=== PATIENT | male | born 1940 | race Caucasian/White ===

== ENCOUNTER 2016-12-01 12:18 | Day surgery (SDC) | payer MEDICARE, BC ==
[~2016-12-01 12:18] MED LIST: FAMOTIDINE 20 MG/2 ML VIAL IV ONE; ceFAZolin 1,000 MG in DEXTROSE/WATER 1 50ML.BAG IV ONE
[2016-12-01 12:50] VITALS: TEMP 97
[2016-12-01] MEDS ORDERED: ONDANSETRON 4 MG/2 ML VIAL IVP ONE (13:06)
[2016-12-01] MEDS ORDERED: DEXAMETHASONE SOD PHOSPHATE 10 MG/ML 1 ML VIAL IV ONE (13:06)
[2016-12-01] MEDS ORDERED: LACTATED RINGERS 1,000 ML IV SCH (13:06)
[2016-12-01] MEDS ORDERED: HYDROmorphone 1 MG/ML 1 ML SYRINGE IVP PRN (13:06)
[2016-12-01] MEDS ORDERED: LIDOCAINE 1% 20 ML VIAL (10MG/ML) FOR IV START INTRADERMA ONE (13:07)
[2016-12-01 13:12] LABS: Glucose,Whole Blood 98 mg/dL (75-99)
[2016-12-01] MEDS ORDERED: PROPOFOL 10 MG/ML 20 ML VIAL IV ONE (14:01)
[2016-12-01] MEDS ORDERED: MIDAZOLAM 2 MG/2 ML VIAL ONE (14:01)
[2016-12-01] MEDS ORDERED: fentaNYL (PF) 50 MCG/ML 2 ML AMP ONE (14:01)
[2016-12-01] MEDS ORDERED: LIDOCAINE 1% INJ 10MG/ML (20 ML MDV) ONE (14:01)
[2016-12-01] MEDS ORDERED: KETAMINE 10 MG/ML 20 ML VIAL ONE (14:01)
[2016-12-01] MEDS ORDERED: LIDOCAINE 1%-EPI 1:100,000 20 ML VIAL SQ ONE (14:18)
--- NOTE | 2016-12-01 14:39 | P.OP ---
Date of Procedure: 12/01/16 Preoperative Diagnosis: Basal cell carcinoma right ear Postoperative Diagnosis: Same Procedure(s) Performed: Excision basal cell carcinoma right ear Anesthesia: MAC Surgeon: Harjit Traore Estimated Blood Loss (ml): 1 Pathology: other (Right ear lesion) Condition: stable Disposition: PACU Indications for Procedure: This is a 76-year-old white male who had a nonhealing lesion of the right ear which was biopsied and showed a basal cell carcinoma. This is in the [place] Operative Findings: Right ear external auditory meatus lesion Description of Procedure: The patient was brought in the operative suite and placed in a supine position. The patient underwent induction of IV sedation by the vending manager after appropriate monitors were placed. The patient was prepped and draped in usual aseptic fashion. 1% lidocaine with 1 100,000 epinephrine was infused subcutaneously and field block fashion in the inferior aspect of the external auditory meatus where there was a small excoriated lesion. This lesion was excised grossly entirely from the surrounding tissue. Excised down to the perichondrium. Hemostasis was gained with electrocautery. This area was too small and too far medial to support a skin graft and therefore this was dressed with bacitracin ointment and sterile dressing placed. The patient was allowed to emerge from anesthesia having tolerated procedure well was transferred to the postop recovery area in satisfactory condition.
[2016-12-01 15:16] VITALS: BP 151/91; PULSE 86; RESP 18
--- NOTE | 2016-12-08 10:48 | CDI ---
Mr. Bajwa was seen on 12/01 for excision of basal cell carcinoma of his ear. The diameter of the lesion excised (including margins) is need to be documented for proper reporting purposes. Please clarify if the size excised was: 0.5 cm or less 0.6 -1.0 cm 1.1 - 2.0 cm 2.1 - 3.0 cm 3.1 - 4.0 cm over 4.0 cm Please document your findings in an addendum to the Operatieve Note. Thank you for your time. RAMONA
--- NOTE | 2016-12-15 11:41 | OP ---
ADDENDUM DATE OF SERVICE: 12/01/2016 Size of excision basal cell carcinoma right ear between 0.6 and 1.0 cm.
== END 2016-12-01 15:46 | disposition home or self-care (01) ==
LOC: OR 12:18
PROVIDERS: ATTEND Otolaryngology
DX: C44.212 Basal cell carcinoma of skin of right ear and external auricular canal (principal); I10 Essential (primary) hypertension; E78.5 Hyperlipidemia, unspecified; F41.9 Anxiety disorder, unspecified; K21.9 Gastro-esophageal reflux disease without esophagitis; Z79.899 Other long term (current) drug therapy; Z85.038 Personal history of other malignant neoplasm of large intestine
CPT/HCPCS: 11641; 88305; J2250; J1100; J2405; J2001; J3010; J0690; J2704; 99152; 99153

== ENCOUNTER → 2017-03-01 | Outpatient (CLI) | payer MEDICARE, BC | END | disposition home or self-care (01) | LOC: LABWHC1 10:04 | PROVIDERS: ATTEND Urology | DX: C61 Malignant neoplasm of prostate (principal) | CPT/HCPCS: 36415; 84402; 84403 ==

== ENCOUNTER → 2017-03-18 | Outpatient (CLI) | payer MEDICARE, BC ==
[2017-03-18 08:03] LABS: Blood Urea Nitrogen 4 mg/dL (9-20); Non-African American GFR(MDRD) >60 (>60 ml/min/1.73 sqM)
--- NOTE | 2017-03-18 09:37 | CT ---
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 CT DLP: 513.3 mGycm, Automated Exposure Control for Dose Reduction was Utilized. CONTRAST: CT scan of the abdomen and pelvis is performed with oral and with IV Contrast, patient injected with 100 mL of Omnipaque 300. FINDINGS: LUNG BASES: No significant abnormality is appreciated. LIVER/GB: Cholecystectomy clips are again seen. PANCREAS: No significant abnormality is seen. SPLEEN: No significant abnormality is seen. ADRENALS: No significant abnormality is seen. KIDNEYS: No significant abnormality is seen. BOWEL: A small hiatal hernia is redemonstrated. Oral contrast reaches level of the rectum. There is n o suspicious small or large bowel dilatation. Small bowel sutures are less well seen on current study . There is mild wall thickening of portions of the left and sigmoid colon, cannot exclude colitis at this level. Clinical correlation advised. PROSTATE/SEMINAL VESICLES: There is a penile prosthesis pump anterior to the bladder right of midline redemonstrated. Numerous brachytherapy seeds in prostate gland are redemonstrated. LYMPH NODES: No greater than 1cm abdominal or pelvic lymph nodes are appreciated. OSSEOUS STRUCTURES: There is multilevel facet arthropathy in the spine. There is multilevel spurring in the spine. OTHER: Vertical scar in the midline of the abdomen is present. There is mild to moderate calcified pl aque of aorta extending into branch vessels. There is spurring from the lateral aspect of the acetabu lum bilaterally. IMPRESSION: 1. No suspicious new mass or adenopathy is seen to suggest neoplastic recurrence. 2. Possible mild multifocal distal colitis, clinical correlation advised.
== END | disposition home or self-care (01) ==
LOC: RADCTMAIN 06:31
PROVIDERS: ATTEND Internal Medicine Hematology & Oncology
DX: C7A.012 Malignant carcinoid tumor of the ileum (principal)
CPT/HCPCS: 82565; 84520; 74177; 36415; Q9967

== ENCOUNTER → 2017-04-19 | Outpatient (CLI) | payer MEDICARE, BC ==
[2017-04-19 10:44] LABS: ALT 26 U/L (21-72); AST 25 U/L (17-59); Cholesterol 123 mg/dL (<200); HDL Cholesterol 51 mg/dL (40-60); Triglycerides 205 mg/dL (<150)
== END | disposition home or self-care (01) ==
LOC: LABWHC1 09:50
PROVIDERS: ATTEND Internal Medicine Cardiovascular Disease
DX: E78.2 Mixed hyperlipidemia (principal)
CPT/HCPCS: 36415; 80061; 84450; 84460

== ENCOUNTER → 2017-05-23 | Outpatient (CLI) | payer MEDICARE, BC ==
[2017-05-23 13:27] LABS: CH 29.6; CHCM 32.5; HCT 35.6 % (39.0-53.0); HDW 3.19; HGB 11.3 gm/dL (13.0-17.5); Hypochromasia Slight; MCH 29.1 pg (25.0-35.0); MCHC 31.8 g/dL (31.0-37.0); MCV 91.4 fL (80.0-100.0); Mean Platelet Volume 7.1; RDW 14.5 % (11.5-15.5); WBC 6.5 k/uL (3.8-10.6)
[2017-05-23 13:42] LABS: ALT 28 U/L (21-72); AST 24 U/L (17-59); Alkaline Phosphatase 81 U/L (38-126); Anion Gap 10 mmol/L; Blood Urea Nitrogen 8 mg/dL (9-20); Calcium 8.9 mg/dL (8.4-10.2); Carbon Dioxide 23 mmol/L (22-30); Chloride 108 mmol/L (98-107); Glucose 94 mg/dL (74-99); Non-African American GFR(MDRD) >60 (>60 ml/min/1.73 sqM); Potassium 3.8 mmol/L (3.5-5.1); Sodium 141 mmol/L (137-145); Total Bilirubin 0.5 mg/dL (0.2-1.3); Total Protein 6.4 g/dL (6.3-8.2)
[2017-05-23 14:31] LABS: Vitamin B12 441 pg/mL
== END | disposition home or self-care (01) ==
LOC: LABWHC1 12:47
PROVIDERS: ATTEND Physician Assistant
DX: R53.83 Other fatigue (principal)
CPT/HCPCS: 36415; 80053; 82607; 84443; 85027

== ENCOUNTER → 2017-12-07 | Outpatient (CLI) | payer MEDICARE, BC ==
--- NOTE | 2017-12-07 11:01 | XR ---
EXAMINATION TYPE: XR chest 2V DATE OF EXAM: 12/07/2017 COMPARISON: 08/01/2016 HISTORY: Carcinoid of the terminal ileum. Pulmonary evaluation. TECHNIQUE: Frontal and lateral views of the chest are obtained. FINDINGS: There is no focal air space opacity, pleural effusion, or pneumothorax seen. Post CABG thine nges are seen of the chest. The cardiac silhouette size is within normal limits. The osseous struc tures are intact. Cholecystectomy clips reside within the right upper quadrant. Bridging anterior ost eophytes and moderate multilevel degenerative changes of the thoracic spine are noted. IMPRESSION: No acute cardiopulmonary process.
== END | disposition home or self-care (01) ==
LOC: RADXRMAIN 10:11
PROVIDERS: ATTEND Nurse Practitioner Adult Health
DX: C7A.012 Malignant carcinoid tumor of the ileum (principal); R10.9 Unspecified abdominal pain; G43.909 Migraine, unspecified, not intractable, without status migrainosus; Z87.39 Personal history of other diseases of the musculoskeletal system and connective tissue
CPT/HCPCS: 71046

== ENCOUNTER → 2018-04-27 | Outpatient (CLI) | payer MEDICARE, BC ==
[2018-04-27 14:23] VITALS: BMI 22.6
[2018-04-27 15:07] LABS: Blood Urea Nitrogen 10 mg/dL (9-20)
--- NOTE | 2018-04-28 10:07 | CT ---
EXAMINATION TYPE: CT abdomen pelvis w con DATE OF EXAM: 04/27/2018 COMPARISON: CT abdomen and pelvis 11/28/2016 and older studies HISTORY: Diarrhea and syncope. Malignant carcinoid tumor per order. CT DLP: 1043 mGycm, Automated Exposure Control for Dose Reduction was Utilized. CONTRAST: CT scan of the abdomen and pelvis is performed with oral and with IV Contrast, patient injected with 100 mL of Isovue 300. FINDINGS: LUNG BASES: Linear scarring central left lung base is redemonstrated. There is partial visualization of sternal wires. LIVER/GB: Gallbladder is surgically absent. PANCREAS: No significant abnormality is seen. SPLEEN: No significant abnormality is seen. ADRENALS: No significant abnormality is seen. KIDNEYS: No significant abnormality is seen. BOWEL: Small to moderate size hiatal hernia is redemonstrated. Surgical clip at diaphragmatic hiatus is again seen. Oral contrast reaches level of hepatic flexure. There is no suspicious small or large bowel dilatation. There is mild wall thickening in the colon near splenic flexure in the distal left colon and in the sigmoid colon of the pelvis. Small bowel sutures with focal dilatation right mid abd omen axial image 45 are not significant change from October 19, 2016 CT. PROSTATE/SEMINAL VESICLES: Numerous brachytherapy seeds in prostate gland are redemonstrated. LYMPH NODES: No greater than 1cm abdominal or pelvic lymph nodes are appreciated. OSSEOUS STRUCTURES: There is multilevel spurring in the spine redemonstrated. There is multilevel mil d to moderate facet arthropathy in the lower lumbar spine. Moderate joint space loss and spurring of both hips is redemonstrated. OTHER: There is stable small size fat-containing paraumbilical hernia. There is a penile pump prosthesis reservoir to the right aspect anterior to the bladder redemonstrate d. There is mild calcified plaque of distal abdominal aorta extending into branch vessels. IMPRESSION: 1. No new suspicious mass or adenopathy is seen to suggest neoplastic recurrence. No significant goldstein ge from prior.
== END | disposition home or self-care (01) ==
LOC: RADCTMAIN 14:17
PROVIDERS: ATTEND Internal Medicine Hematology & Oncology
DX: C7A.012 Malignant carcinoid tumor of the ileum (principal)
CPT/HCPCS: 82565; 84520; 74177; 36415; Q9967

== ENCOUNTER → 2018-05-03 | Outpatient (CLI) | payer MEDICARE, BC ==
[2018-05-03 12:20] LABS: ALT 26 U/L (21-72); AST 23 U/L (17-59); Albumin 4.3 g/dL (3.5-5.0); Alkaline Phosphatase 113 U/L (38-126); Bilirubin, Delta 0.4 mg/dL (0.0-0.2); Bilirubin,Unconjugated 0.1 mg/dL (0.0-1.1); Cholesterol 192 mg/dL (<200); HDL Cholesterol 64 mg/dL (40-60); LDL Cholesterol,Calculated 58 mg/dL (0-99); Total Bilirubin 0.5 mg/dL (0.2-1.3); Total Protein 7.1 g/dL (6.3-8.2); Triglycerides 348 mg/dL (<150)
[2018-05-03 12:37] LABS: HCT 43.5 % (39.0-53.0); MCH 30.3 pg (25.0-35.0); MCHC 32.1 g/dL (31.0-37.0); MCV 94.5 fL (80.0-100.0); Mean Platelet Volume 6.4; Platelet Count 195 k/uL (150-450); RBC 4.61 m/uL (4.30-5.90); RDW 12.9 % (11.5-15.5); WBC 5.3 k/uL (3.8-10.6)
[2018-05-03 12:50] LABS: Prostate Specific Antigen <0.10 ng/mL (0.00-4.00)
== END | disposition home or self-care (01) ==
LOC: LABWHC1 11:19
PROVIDERS: ATTEND Urology
DX: E78.5 Hyperlipidemia, unspecified (principal); C61 Malignant neoplasm of prostate
CPT/HCPCS: 36415; 80061; 80076; 84153; 85027

== ENCOUNTER → 2018-11-01 | Outpatient (CLI) | payer MEDICARE, BC | LOC: LABWHC1 10:13 | PROVIDERS: ATTEND Internal Medicine Cardiovascular Disease | DX: E78.2 Mixed hyperlipidemia (principal) | CPT/HCPCS: 36415; 80061; 84450; 84460 ==

== ENCOUNTER → 2019-01-22 | Outpatient (CLI) | payer MEDICARE, BC ==
[2019-01-22 20:25] LABS: Hemoglobin A1C 5.3 % (4.0-6.0)
== END | disposition home or self-care (01) ==
LOC: LABWHC1 09:26
PROVIDERS: ATTEND Physician Assistant
DX: R73.9 Hyperglycemia, unspecified (principal)
CPT/HCPCS: 36415; 83036

== ENCOUNTER 2019-04-21 17:47 | Inpatient (IN) | payer MEDICARE, BC ==
[2019-04-21 18:36] LABS: Basophils % (A) 0 %; Eosinophils % (A) 0 %; HCT 42.5 % (39.0-53.0); HGB 14.9 gm/dL (13.0-17.5); Lymphocytes % (A) 8 %; MCH 31.4 pg (25.0-35.0); MCHC 35.1 g/dL (31.0-37.0); MCV 89.4 fL (80.0-100.0); Mean Platelet Volume 7.3; Monocytes # (A) 0.4 k/uL (0-1.0); Monocytes % (A) 3 %; Neutrophils # (A) 11.2 k/uL (1.3-7.7); Neutrophils % (A) 88 %; Platelet Count 228 k/uL (150-450); RBC 4.76 m/uL (4.30-5.90); RDW 13.9 % (11.5-15.5); WBC 12.7 k/uL (3.8-10.6)
[2019-04-21 18:49] LABS: ALT 21 U/L (21-72); AST 25 U/L (17-59); African American GFR (CKD) 65 (>60 ml/min/1.73 sqM); Albumin 4.8 g/dL (3.5-5.0); Alkaline Phosphatase 96 U/L (38-126); Amylase 50 U/L (30-110); Anion Gap 14 mmol/L; Blood Urea Nitrogen 15 mg/dL (9-20); Carbon Dioxide 19 mmol/L (22-30); Chloride 106 mmol/L (98-107); Glucose 121 mg/dL (74-99); Lipase <10 U/L (23-300); Potassium 4.4 mmol/L (3.5-5.1); Sodium 139 mmol/L (137-145); Total Bilirubin 0.8 mg/dL (0.2-1.3); Total Protein 7.8 g/dL (6.3-8.2)
[2019-04-21 19:10] LABS: Appearance,Urine Clear (Clear); Bilirubin,Urine Negative (Negative); Blood,Urine Negative (Negative); Color,Urine Yellow; Glucose,Urine (UA) Negative (Negative); Ketones,Urine 1+ (Negative); Leukocyte Esterase,Urine Negative (Negative); Nitrite,Urine Negative (Negative); PH, Urine 5.5 (5.0-8.0); Protein,Urine Trace (Negative); Specific Gravity,Urine 1.022 (1.001-1.035); Urobilinogen,Urine <2.0 mg/dL (<2.0)
[2019-04-21] MEDS ORDERED: SODIUM CHLORIDE 0.9% 1,000 ML IV ONE ×2 (19:12→23:19)
--- NOTE | 2019-04-21 19:40 | CT ---
EXAMINATION TYPE: CT abdomen pelvis w con DATE OF EXAM: 04/21/2019 COMPARISON: 04/27/2018 INDICATION: Generalized pain with nausea DLP: 679 mGycm, Automated exposure control for dose reduction was used. CONTRAST: 100 mL of Isovue 300. Study performed without Oral Contrast TECHNIQUE: Axial images were obtained from above the diaphragm to the pubic rami in the axial plane a t 5 mm thick sections. Reconstructed images are reviewed on the computer in the coronal plane. FINDINGS: Limited CT sections are obtained the lung bases. The lung bases are clear. There is a moderate size hiatal hernia present. CT ABDOMEN: Liver: Normal Spleen: Normal Pancreas: Atrophic Adrenal glands: The adrenal glands are normal. Gallbladder: Surgically absent Kidneys: No masses are evident. No hydronephrosis is present. No cysts are present. Delayed images were obtained through the kidneys, which remain unremarkable. Aorta: Vascular calcification is within the aorta. Inferior vena cava: Normal. CT PELVIS: There are multiple dilated fluid-filled small bowel loops compatible with ileus or partial small dayna l obstruction. The anastomosis appears widely patent. Air and fecal debris is within the colon. Appendix: Not identified. No suspicious inflammatory changes are evident. Urinary bladder: Normal. Genitourinary structures: There is a reservoir in the right hemipelvis for a penile prosthesis. Multi ple brachytherapy seeds are within the prostate. Osseous structures: No suspicious lytic or sclerotic lesions. IMPRESSIONS: 1. Prominent fluid-filled small bowel loops suggestive for ileus. This extends into the terminal ile um with a normal-appearing appendix suggesting partial small bowel obstruction to be unlikely 2. Moderate size hiatal hernia.
[2019-04-21] MEDS ORDERED: MORPHINE SULFATE 4 MG/ML SYRINGE IVP STA (20:38)
[2019-04-21] MEDS ORDERED: MORPHINE SULFATE 4 MG/ML SYRINGE IV PRN (20:45)
[2019-04-21] MEDS ORDERED: NALOXONE 0.4 MG/ML 1 ML VIAL IV PRN (20:45)
--- NOTE | 2019-04-21 20:45 | ED ---
Abdominal Pain HPI - General Chief Complaint: Abdominal Pain Stated Complaint: Abd Pain Time Seen by Provider: 04/21/19 18:04 Source: patient Mode of arrival: EMS Limitations: no limitations - History of Present Illness Initial Comments: 78yo male presenting for cc of abdominal pain, vomiting. Patient states he has history of carcinoid tumor with chronic diarrhea. He states he has had previous bowel obstructions, as well a a previous cholecystectomy. Patient states the abdominal pain began a few hours after eating left over steak from the night prior . He states he is unsure if it is related. Patient states he had been having bowel movement today that are "normal for me" (him). He states that there is no darkening of the stool or blood. Deneis blood in vomit. Denies fevers, recent travel. He denies chest pain, shortness of breath, back pain, upper abdominal pain, patient states pain in localized to the mid to lower abdomen. Patient states he had no transportation so he called EMS. Who gave patient fentanyl and zofran AGENT. Upon arrival patient BP is elevated. Patient states his pain is controlled. Remaining ROS (-). - Related Data Home Medications Medication Instructions Recorded Confirmed Omeprazole [PriLOSEC] 40 mg PO DAILY 03/18/16 04/21/19 Aspirin EC [Ecotrin Low Dose] 81 mg PO DAILY 07/29/16 04/21/19 Folic Acid 1 mg PO DAILY 07/29/16 04/21/19 Colestipol HCl 3 tab PO TID 04/21/19 04/21/19 DULoxetine HCL [Cymbalta] 30 mg PO DAILY 04/21/19 04/21/19 Dicyclomine [Bentyl] 20 mg PO QID PRN 04/21/19 04/21/19 Diphenox-Atrop 2.5-0.025 mg 2 tab PO QID PRN 04/21/19 04/21/19 [Lomotil] Gabapentin [Neurontin] 600 mg PO TID 04/21/19 04/21/19 Potassium Chloride [Klor-Con 10] 10 meq PO BID 04/21/19 04/21/19 QUEtiapine FUMARATE [SEROquel] 200 mg PO HS 04/21/19 04/21/19 Simvastatin [Zocor] 20 mg PO DAILY 04/21/19 04/21/19 Allergies Allergy/AdvReac Type Severity Reaction Status Date / Time No Known Allergies Allergy Verified 04/21/19 21:31 Review of Systems ROS Statement: Those systems with pertinent positive or pertinent negative responses have been documented in the HPI. ROS Other: All systems not noted in ROS Statement are negative. 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 , STATES BILATERAL INGUINAL HERNIA REPAIR. bowel resect Past Anesthesia/Blood Transfusion Reactions: No Reported Reaction Past Psychological History: No Psychological Hx Reported Smoking Status: Never smoker Past Alcohol Use History: Rare Past Drug Use History: None Reported - Past Family History Mother Family Medical History: No Reported History General Exam - General Exam Comments Initial Comments: General: The patient is awake and alert, in no distress, emesis basin in lap-no active vomiting Eye: Pupils are equal, round and reactive to light, extra-ocular movements are intact. No nystagmus. There is normal conjunctiva bilaterally. No signs of icterus. Ears, nose, mouth and throat: There are moist mucous membranes and no oral lesions. Neck: The neck is supple, there is no tenderness or JVD. Cardiovascular: There is a regular rate and rhythm. No murmur, rub or gallop is appreciated. Respiratory: Lungs are clear to auscultation, respirations are non-labored, breath sounds are equal. No wheezes, stridor, rales, or rhonchi. Gastrointestinal: [Soft, non-distended, abdomen mildly tender to palpation of the lower aspect of the abdomen without masses or organomegaly noted. There is no rigidity, rebound tenderness or guarding present. No CVA tenderness. Bowel sounds are unremarkable. (-) Heel jar. Musculoskeletal: Normal ROM, no tenderness. Strength 5/5. Sensation intact. Pulses equal bilaterally 2+. Neurological: A&O x 3. CN II-XII intact, There are no obvious motor or sensory deficits. Coordination appears grossly intact. Speech is normal. Skin: Skin is warm and dry and no rashes or lesions are noted. Psychiatric: Cooperative, appropriate mood & affect, normal judgment. Limitations: no limitations Course Vital Signs 04/21/19 04/21/19 04/21/19 18:00 19:25 21:00 Temperature 97.9 F 97.9 F Pulse Rate 102 H 99 104 H Respiratory 18 18 19 Rate Blood Pressure 144/114 176/95 187/116 O2 Sat by Pulse 100 98 100 Oximetry - Reevaluation(s) Reevaluation #1: Patient continues to have episodes of dry heaving, will administer q8hr zofran. IV hydration. 04/21/19 21:03 Medical Decision Making - Medical Decision Making 78-year-old male with history of small bowel obstruction as well as carcinoid tumor presenting for evaluation of abdominal pain and vomiting. Patient states he has had regular bowel movements today. Patient states he is unsure if he is sick from steak he had ate earlier today. Patient denies hematemesis melena or hematochezia. Upon initial arrival patient does not appear very uncomfortable. Resting comfortably in bed. Patient was given but no prior to arrival. Patient was given Zofran. Once medications wore off patient was uncomfortable. Patient had episodes of dry heaving. Given additional dose of Zofran. CT revealed ileus no overt signs of SBO. Patient's elevated lactic acid, will repeat. Patient is given IV bolus. Maintenance fluids. With patient history concern for possibility of early or developing SBO. Patient placed NPO. Patient will be admitted for intractable abdominal pain. I did discuss the case with detail with Dr. Monae who spoke with admitting providers. GI on consult. Patient agreeable with admission. - Lab Data Result diagrams: 04/21/19 18:20 04/21/19 18:20 Lab Results 04/21/19 04/21/19 04/21/19 Range/Units 18:20 18:20 18:20 WBC 12.7 H (3.8-10.6) k/uL RBC 4.76 (4.30-5.90) m/uL Hgb 14.9 (13.0-17.5) gm/dL Hct 42.5 (39.0-53.0) % MCV 89.4 (80.0-100.0) fL MCH 31.4 (25.0-35.0) pg MCHC 35.1 (31.0-37.0) g/dL RDW 13.9 (11.5-15.5) % Plt Count 228 (150-450) k/uL Neutrophils % 88 % Lymphocytes % 8 % Monocytes % 3 % Eosinophils % 0 % Basophils % 0 % Neutrophils # 11.2 H (1.3-7.7) k/uL Lymphocytes # 1.0 (1.0-4.8) k/uL Monocytes # 0.4 (0-1.0) k/uL Eosinophils # 0.0 (0-0.7) k/uL Basophils # 0.0 (0-0.2) k/uL Sodium 139 (137-145) mmol/L Potassium 4.4 (3.5-5.1) mmol/L Chloride 106 (98-107) mmol/L Carbon Dioxide 19 L (22-30) mmol/L Anion Gap 14 mmol/L BUN 15 (9-20) mg/dL Creatinine 1.23 (0.66-1.25) mg/dL Est GFR (CKD-EPI)AfAm 65 (>60 ml/min/1.73 sqM) Est GFR (CKD-EPI)NonAf 56 (>60 ml/min/1.73 sqM) Glucose 121 H (74-99) mg/dL Lactic Ac Sepsis Rflx Plasma Lactic Acid J Carlos 2.3 H* (0.7-2.0) mmol/L Calcium 10.0 (8.4-10.2) mg/dL Total Bilirubin 0.8 (0.2-1.3) mg/dL AST 25 (17-59) U/L ALT 21 (21-72) U/L Alkaline Phosphatase 96 (38-126) U/L Total Protein 7.8 (6.3-8.2) g/dL Albumin 4.8 (3.5-5.0) g/dL Amylase 50 (30-110) U/L Lipase <10 L (23-300) U/L Urine Color Urine Appearance (Clear) Urine pH (5.0-8.0) Ur Specific [place] (1.001-1.035) Urine Protein (Negative) Urine Glucose (UA) (Negative) Urine Ketones (Negative) Urine Blood (Negative) Urine Nitrite (Negative) Urine Bilirubin (Negative) Urine Urobilinogen (<2.0) mg/dL Ur Leukocyte Esterase (Negative) 04/21/19 04/21/19 Range/Units 19:00 19:06 WBC (3.8-10.6) k/uL RBC (4.30-5.90) m/uL Hgb (13.0-17.5) gm/dL Hct (39.0-53.0) % MCV (80.0-100.0) fL MCH (25.0-35.0) pg MCHC (31.0-37.0) g/dL RDW (11.5-15.5) % Plt Count (150-450) k/uL Neutrophils % % Lymphocytes % % Monocytes % % Eosinophils % % Basophils % % Neutrophils # (1.3-7.7) k/uL Lymphocytes # (1.0-4.8) k/uL Monocytes # (0-1.0) k/uL Eosinophils # (0-0.7) k/uL Basophils # (0-0.2) k/uL Sodium (137-145) mmol/L Potassium (3.5-5.1) mmol/L Chloride (98-107) mmol/L Carbon Dioxide (22-30) mmol/L Anion Gap mmol/L BUN (9-20) mg/dL Creatinine (0.66-1.25) mg/dL Est GFR (CKD-EPI)AfAm (>60 ml/min/1.73 sqM) Est GFR (CKD-EPI)NonAf (>60 ml/min/1.73 sqM) Glucose (74-99) mg/dL Lactic Ac Sepsis Rflx Y Plasma Lactic Acid J Carlos (0.7-2.0) mmol/L Calcium (8.4-10.2) mg/dL Total Bilirubin (0.2-1.3) mg/dL AST (17-59) U/L ALT (21-72) U/L Alkaline Phosphatase (38-126) U/L Total Protein (6.3-8.2) g/dL Albumin (3.5-5.0) g/dL Amylase (30-110) U/L Lipase (23-300) U/L Urine Color Yellow Urine Appearance Clear (Clear) Urine pH 5.5 (5.0-8.0) Ur Specific [place] 1.022 (1.001-1.035) Urine Protein Trace H (Negative) Urine Glucose (UA) Negative (Negative) Urine Ketones 1+ H (Negative) Urine Blood Negative (Negative) Urine Nitrite Negative (Negative) Urine Bilirubin Negative (Negative) Urine Urobilinogen <2.0 (<2.0) mg/dL Ur Leukocyte Esterase Negative (Negative) Disposition Clinical Impression: Abdominal pain, Vomiting, Intractable abdominal pain, Ileus Disposition: ADMITTED IP TO THIS [facility] Condition: Stable Is patient prescribed a controlled substance at d/c from ED?: No Time of Disposition: 20:45 Decision to Admit Reason: Admit from EC Decision Date: 04/21/19 Decision Time: 20:45
[2019-04-21] MEDS: SODIUM CHLORIDE 0.9% 1,000 ML IV SCH (20:48)
[2019-04-21] MEDS: ONDANSETRON 4 MG/2 ML VIAL IVP PRN (21:40)
[2019-04-21] MEDS ORDERED: METOCLOPRAMIDE 5 MG/ML 2 ML VIAL IVP STA (22:05)
[2019-04-21] MEDS ORDERED: MORPHINE SULFATE 2 MG/ML SYRINGE IVP STA (22:44)
[2019-04-22] MEDS: SODIUM CHLORIDE 0.9% 1,000 ML IV SCH ×3 (00:25→23:27)
[2019-04-22] MEDS: PIPERACILLIN-TAZOBACTAM 3.375 GM in SODIUM CHLORIDE 0.9% 100 ML IVPB SCH ×2 (00:25→09:00)
[2019-04-22] MEDS: HYDROmorphone 1 MG/ML 1 ML SYRINGE IVP PRN ×5 (00:40→23:20)
[2019-04-22] MEDS ORDERED: LABETALOL 5 MG/ML VIAL MDV IVP PRN (01:00)
[2019-04-22] MEDS: ONDANSETRON 4 MG/2 ML VIAL IVP PRN ×3 (06:00→23:20)
[2019-04-22 08:01] LABS: Basophils % (A) 0 %; Eosinophils % (A) 0 %; HCT 44.4 % (39.0-53.0); HGB 15.3 gm/dL (13.0-17.5); Lymphocytes % (A) 5 %; MCHC 34.3 g/dL (31.0-37.0); MCV 90.2 fL (80.0-100.0); Monocytes # (A) 0.5 k/uL (0-1.0); Monocytes % (A) 3 %; Neutrophils # (A) 16.6 k/uL (1.3-7.7); Neutrophils % (A) 91 %; Platelet Count 230 k/uL (150-450); RBC 4.93 m/uL (4.30-5.90); RDW 14.1 % (11.5-15.5); WBC 18.2 k/uL (3.8-10.6)
[2019-04-22 08:05] LABS: Calcium 9.8 mg/dL (8.4-10.2); Potassium 4.9 mmol/L (3.5-5.1)
--- NOTE | 2019-04-22 10:03 | CONS ---
CONSULTATION DATE OF SERVICE: April 22, 2019. REQUESTING PHYSICIAN: Dr. Gail Tidwell. REASON FOR CONSULTATION: Abdominal pain, nausea, vomiting. HISTORY OF PRESENT ILLNESS: The patient is a 78-year-old pleasant white male who presented to the hospital with complaining of abdominal pain associated with nausea, vomiting that started about 3 days ago. He started having some abdominal distention and several episodes of nausea and vomiting and some loose watery bowel movements. Since being in the hospital, abdominal distention continues to progressively get worse. He had several episodes of emesis early this morning. He has been passing some flatus and small amount of loose stools also. He denies any coffee-grounds emesis. He came into the emergency room and he did have a CT of the abdomen and pelvis done that showed distended small bowel loops suspicious for ileus. On review of his records, it appears that patient was diagnosed with gastrointestinal stromal tumor just several years ago requiring partial small bowel obstruction. He was hospitalized in June of 2016 with small bowel obstruction related to adhesions and underwent exploratory laparotomy by Dr. Uribe. His last colonoscopy in 2015 showed nonspecific colitis. PAST MEDICAL HISTORY: Significant for coronary artery disease, hypertension, hyperlipidemia, degenerative joint disease, prostate disorder, gastroesophageal reflux disease. PAST SURGICAL HISTORY: History of small bowel resection several years ago for just cholecystectomy, coronary bypass surgery, cardiac catheterization, hernia repair, prostate surgery. MEDICATIONS: At home include dicyclomine, Lomotil, Neurontin, K-Reyna, Seroquel, Zocor, Prilosec, aspirin, folic acid, colestipol, and Cymbalta. ALLERGIES: No known drug allergies. SOCIAL HISTORY: No smoking. No alcohol use. FAMILY HISTORY: Unremarkable. REVIEW OF SYSTEMS: Cardiopulmonary: Denies any chest pain, shortness of breath. Genitourinary: No dysuria or hematuria. Musculoskeletal unremarkable. Skin unremarkable. Endocrine unremarkable. Psychiatric unremarkable. Neurology unremarkable. ENT/VISION unremarkable. Constitutional: No recent weight loss. No fever, chills, night sweats. PHYSICAL EXAMINATION: He appears comfortable. No apparent distress. VITAL SIGNS: Stable. Blood pressure is 175/93, pulse rate 103, temperature 98. HEENT examination unremarkable. Conjunctivae pink. Sclerae anicteric. Oral cavity no lesions. NECK: No JVD or lymph node enlargement. CHEST: Clear to auscultation. HEART: Regular rate and rhythm. ABDOMEN is distended. It was slightly tympanic. Bowel sounds are sluggish. It was diffusely tender, mild diffuse tenderness but no rebound, rigidity. EXTREMITIES: No pedal edema. SKIN no rashes. NEUROLOGIC: Alert and oriented x3. No focal deficits. LAB: Done at the time of admission to the hospital: WBC 9.2, hemoglobin 15.3, platelets are normal. Lactic acid was 4.9, it is down to 2.8 today. Basic metabolic panel is within normal limits. IMPRESSION: 1. Abdominal distention with nausea and vomiting and some diarrhea for the last [address] of the abdomen showed distended small bowel loops with no transition point suspicious for ileus, but possibility of small bowel obstruction cannot be excluded. The patient had prior history of small bowel obstruction requiring exploratory laparotomy in June of [address] Uribe. 2. History of carcinoid/gastrointestinal stromal tumor diagnosed in 2013, status post surgery at [facility] as per the patient. He follows with Dr. Bush every 6 months. 3. Chronic diarrhea of several years duration, has been maintained on the Lomotil/Bentyl as well as cholestyramine. RECOMMENDATIONS: 1. Keep him n.p.o. 2. Obtain surgical consultation for possible small-bowel obstruction. 3. Continue IV Protonix. We will follow with you closely during his hospital stay. Thank you for this consultation. MONICA / THIAGO: [phone] /
--- NOTE | 2019-04-22 12:04 | XR ---
EXAMINATION TYPE: XR chest 1V portable DATE OF EXAM: 04/22/2019 CLINICAL HISTORY: NG tube placement. TECHNIQUE: Single AP portable frontal view of the chest is obtained. COMPARISON: Chest x-ray from December 07, 2017 FINDINGS: Nasogastric tube terminates just below santa at mid to distal esophageal level in these to be advanc ed. Overlying sternal wires and mediastinal clips are redemonstrated. There is chronic parenchymal change without suspicious new focal airspace opacity, pleural effusion, or pneumothorax. Cardiac silhouette size is within normal limits with atherosclerotic aorta. Osseous structures are intact. IMPRESSION: New nasogastric tube terminates mid to distal esophageal level, recommend advancing 10 to 12 cm. Patient's nurse Nahomi called of above results at time of dictation.
--- NOTE | 2019-04-22 12:32 | P.GSCN ---
History of Present Illness Consult date: 04/22/19 Reason for Consult: Abdominal pain History of present illness: 78-year-old male came to the hospital with complaints of abdominal pain and bloa ting. He states he has been having normal bowel function. He has been having episodes of vomiting. Pain is in the mid abdomen he states. Nonradiating. No fevers. White blood cell count is elevated. CAT scan showed distended proximal bowel loops including the previous small bowel anastomosis site. The last foot or so of the small bowel however appears collapse. 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 This was resected 3 years ago at [facility]. Patient apparently had an exploratory laparotomy for bowel obstruction [address] Uribe[address] 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 , STATES BILATERAL INGUINAL HERNIA REPAIR. bowel resect Past Anesthesia/Blood Transfusion Reactions: No Reported Reaction Past Psychological History: No Psychological Hx Reported Smoking Status: Never smoker Past Alcohol Use History: Rare Past Drug Use History: None Reported - Past Family History Mother Family Medical History: No Reported History Medications and Allergies Home Medications Medication Instructions Recorded Confirmed Type Omeprazole [PriLOSEC] 40 mg PO DAILY 03/18/16 04/21/19 History Aspirin EC [Ecotrin Low Dose] 81 mg PO DAILY 07/29/16 04/21/19 History Folic Acid 1 mg PO DAILY 07/29/16 04/21/19 History Colestipol HCl 3 tab PO TID 04/21/19 04/21/19 History DULoxetine HCL [Cymbalta] 30 mg PO DAILY 04/21/19 04/21/19 History Dicyclomine [Bentyl] 20 mg PO QID PRN 04/21/19 04/21/19 History Diphenox-Atrop 2.5-0.025 mg 2 tab PO QID PRN 04/21/19 04/21/19 History [Lomotil] Gabapentin [Neurontin] 600 mg PO TID 04/21/19 04/21/19 History Potassium Chloride [Klor-Con 10] 10 meq PO BID 04/21/19 04/21/19 History QUEtiapine FUMARATE [SEROquel] 200 mg PO HS 04/21/19 04/21/19 History Simvastatin [Zocor] 20 mg PO DAILY 04/21/19 04/21/19 History Allergies Allergy/AdvReac Type Severity Reaction Status Date / Time No Known Allergies Allergy Verified 04/21/19 21:31 Surgical - Exam Vital Signs Temp Pulse Resp BP Pulse Ox 97.9 F 102 H 18 144/114 100 04/21/19 18:00 04/21/19 18:00 04/21/19 18:00 04/21/19 18:00 04/21/19 18:00 Physical exam: General: Well-developed, well-nourished HEENT: Normocephalic, sclerae nonicteric Abdomen: Mild diffuse tenderness, slightly distended Extremities: No edema Neuro: Alert and oriented Results - Labs 04/22/19 05:22 04/22/19 05:22 Abnormal Lab Results - Last 24 Hours (Table) 04/21/19 04/21/19 04/21/19 Range/Units 18:20 18:20 18:20 WBC 12.7 H (3.8-10.6) k/uL Neutrophils # 11.2 H (1.3-7.7) k/uL Carbon Dioxide 19 L (22-30) mmol/L Glucose 121 H (74-99) mg/dL Plasma Lactic Acid J Carlos 2.3 H* (0.7-2.0) mmol/L Lipase <10 L (23-300) U/L Urine Protein (Negative) Urine Ketones (Negative) 04/21/19 04/21/19 04/22/19 Range/Units 19:00 22:18 01:33 WBC (3.8-10.6) k/uL Neutrophils # (1.3-7.7) k/uL Carbon Dioxide (22-30) mmol/L Glucose (74-99) mg/dL Plasma Lactic Acid J Carlos 4.9 H* 3.2 H* (0.7-2.0) mmol/L Lipase (23-300) U/L Urine Protein Trace H (Negative) Urine Ketones 1+ H (Negative) 04/22/19 04/22/19 04/22/19 Range/Units 05:22 05:22 05:22 WBC 18.2 H (3.8-10.6) k/uL Neutrophils # 16.6 H (1.3-7.7) k/uL Carbon Dioxide 20 L (22-30) mmol/L Glucose 154 H (74-99) mg/dL Plasma Lactic Acid J Carlos 2.8 H* (0.7-2.0) mmol/L Lipase (23-300) U/L Urine Protein (Negative) Urine Ketones (Negative) Diabetes panel 04/21/19 04/22/19 Range/Units 18:20 05:22 Sodium 139 139 (137-145) mmol/L Potassium 4.4 4.9 (3.5-5.1) mmol/L Chloride 106 105 (98-107) mmol/L Carbon Dioxide 19 L 20 L (22-30) mmol/L BUN 15 16 (9-20) mg/dL Creatinine 1.23 1.11 (0.66-1.25) mg/dL Glucose 121 H 154 H (74-99) mg/dL Calcium 10.0 9.8 (8.4-10.2) mg/dL AST 25 (17-59) U/L ALT 21 (21-72) U/L Alkaline Phosphatase 96 (38-126) U/L Total Protein 7.8 (6.3-8.2) g/dL Albumin 4.8 (3.5-5.0) g/dL Calcium panel 04/21/19 04/22/19 Range/Units 18:20 05:22 Calcium 10.0 9.8 (8.4-10.2) mg/dL Albumin 4.8 (3.5-5.0) g/dL Pituitary panel 04/21/19 04/22/19 Range/Units 18:20 05:22 Sodium 139 139 (137-145) mmol/L Potassium 4.4 4.9 (3.5-5.1) mmol/L Chloride 106 105 (98-107) mmol/L Carbon Dioxide 19 L 20 L (22-30) mmol/L BUN 15 16 (9-20) mg/dL Creatinine 1.23 1.11 (0.66-1.25) mg/dL Glucose 121 H 154 H (74-99) mg/dL Calcium 10.0 9.8 (8.4-10.2) mg/dL Adrenal panel 04/21/19 04/22/19 Range/Units 18:20 05:22 Sodium 139 139 (137-145) mmol/L Potassium 4.4 4.9 (3.5-5.1) mmol/L Chloride 106 105 (98-107) mmol/L Carbon Dioxide 19 L 20 L (22-30) mmol/L BUN 15 16 (9-20) mg/dL Creatinine 1.23 1.11 (0.66-1.25) mg/dL Glucose 121 H 154 H (74-99) mg/dL Calcium 10.0 9.8 (8.4-10.2) mg/dL Total Bilirubin 0.8 (0.2-1.3) mg/dL AST 25 (17-59) U/L ALT 21 (21-72) U/L Alkaline Phosphatase 96 (38-126) U/L Total Protein 7.8 (6.3-8.2) g/dL Albumin 4.8 (3.5-5.0) g/dL Assessment and Plan (1) Bowel obstruction Narrative/Plan: Given patient's history small bowel obstruction favored over ileus. Agree with plans for nasogastric tube placement. Keep nothing by mouth for now. Empiric Antibiotics. Repeat labs and x-rays tomorrow. Current Visit: No Status: Acute Code(s): K56.60 - UNSPECIFIED INTESTINAL OBSTRUCTION * DO NOT USE * [id number] Code(s): 63303164
[2019-04-22] MEDS ORDERED: cloNIDine 0.1 MG/24HR PATCH TRANSDERM SCH (13:00)
--- NOTE | 2019-04-22 13:32 | P.HPIM ---
History of Present Illness patient is a pleasant 78-year-old gentleman came with complaints of nausea vomiting abdominal pain and abdominal distention abdominal pain is moderate severity diffuse Carla nature. Patient denied any fever chills denied any dysuria cough. Patient is found to have ileus patient has abdominal surgeries in the past include cholecystectomy does have history of Crohn's disease because of which patient is on 2 antidiarrheal medications which can cause ileus . Patient was started on Dilaudid will start him on Toradol try to avoid Dilaudid kidney function is borderline at 1.1 patient had a 6 50 mL from the NG tube patient will be started on 1 50 mL of IV normal saline. Patient was transferred to [facility] because of elevated blood pressures and patient was on labetalol IV which will be this can urine patient was started on clonidine patch. Patient has an NG tube in place. Repeat the abdominal x-rays will be obtained for tomorrow. Lites will be monitored and repeated expected to have low potassium because of loss from the NG tube and natriuretic hypokalemia.there is no evidence of infection at this time patient came in with lactate of 4.9 and now 2.8 to this is secondary to severe intravascular volume depletion antibiotics will not be beneficial and medics will be discontinued WBC count is 18,200 each is reactive in nature. Review of Systems REVIEW OF SYSTEMS: CONSTITUTIONAL: No fever, no malaise, no fatigue. HEENT: No recent visual problems or hearing problems. Denied any sore throat. CARDIOVASCULAR: No chest pain, orthopnea, PND, no palpitations, no syncope. PULMONARY: No shortness of breath, no cough, no hemoptysis. GASTROINTESTINAL: as mentioned in HPI NEUROLOGICAL: No headaches, no weakness, no numbness. HEMATOLOGICAL: Denies any bleeding or petechiae. GENITOURINARY: Denies any burning micturition, frequency, or urgency. MUSCULOSKELETAL/RHEUMATOLOGICAL: Denies any joint pain, swelling, or any muscle pain. ENDOCRINE: Denies any polyuria or polydipsia. The rest of the 14-point review of systems is negative. 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 , STATES BILATERAL INGUINAL HERNIA REPAIR. bowel resect Past Anesthesia/Blood Transfusion Reactions: No Reported Reaction Past Psychological History: No Psychological Hx Reported Smoking Status: Never smoker Past Alcohol Use History: Rare Past Drug Use History: None Reported - Past Family History Mother Family Medical History: No Reported History Medications and Allergies Home Medications Medication Instructions Recorded Confirmed Type Omeprazole [PriLOSEC] 40 mg PO DAILY 03/18/16 04/21/19 History Aspirin EC [Ecotrin Low Dose] 81 mg PO DAILY 07/29/16 04/21/19 History Folic Acid 1 mg PO DAILY 07/29/16 04/21/19 History Colestipol HCl 3 tab PO TID 04/21/19 04/21/19 History DULoxetine HCL [Cymbalta] 30 mg PO DAILY 04/21/19 04/21/19 History Dicyclomine [Bentyl] 20 mg PO QID PRN 04/21/19 04/21/19 History Diphenox-Atrop 2.5-0.025 mg 2 tab PO QID PRN 04/21/19 04/21/19 History [Lomotil] Gabapentin [Neurontin] 600 mg PO TID 04/21/19 04/21/19 History Potassium Chloride [Klor-Con 10] 10 meq PO BID 04/21/19 04/21/19 History QUEtiapine FUMARATE [SEROquel] 200 mg PO HS 04/21/19 04/21/19 History Simvastatin [Zocor] 20 mg PO DAILY 04/21/19 04/21/19 History Allergies Allergy/AdvReac Type Severity Reaction Status Date / Time No Known Allergies Allergy Verified 04/21/19 21:31 Physical Exam Vitals: Vital Signs Temp Pulse Pulse Pulse Pulse Resp BP 04/22/19 12:30 98.4 F 109 H 18 04/22/19 11:11 108 H 18 04/22/19 07:59 110 H 18 04/22/19 04:00 98.0 F 103 H 18 04/22/19 01:49 04/22/19 01:16 04/22/19 01:01 04/22/19 00:48 103 H 04/22/19 00:45 109 H 18 04/22/19 00:43 97.7 F 109 H 19 04/21/19 23:26 108 H 04/21/19 22:50 104 H 18 04/21/19 22:30 104 H 04/21/19 22:20 97.9 F 105 H 04/21/19 21:00 97.9 F 104 H 19 187/116 04/21/19 19:25 99 18 176/95 04/21/19 18:00 97.9 F 102 H 18 144/114 BP BP BP Pulse Ox 04/22/19 12:30 160/90 100 04/22/19 11:11 04/22/19 07:59 04/22/19 04:00 130/80 98 04/22/19 01:49 175/93 04/22/19 01:16 175/99 04/22/19 01:01 183/103 04/22/19 00:48 204/113 04/22/19 00:45 04/22/19 00:43 197/115 98 04/21/19 23:26 194/116 04/21/19 22:50 04/21/19 22:30 182/102 04/21/19 22:20 213/127 97 04/21/19 21:00 100 04/21/19 19:25 98 04/21/19 18:00 100 Intake and Output 04/21/19 04/22/19 04/22/19 22:59 06:59 14:59 Intake Total 20 Output Total 650 Balance -630 Intake: IV 20 Invasive Line 2 20 Output: Gastric Drainage 650 Stool 0 Other: Voiding Method Toilet Toilet Toilet # Voids 1 3 Weight 69.4 kg 67.8 kg PHYSICAL EXAMINATION: GENERAL: The patient is alert and oriented x3, not in any acute distress. Well developed, well nourished. HEENT: Pupils are round and equally reacting to light. EOMI. No scleral icterus. No conjunctival pallor. Normocephalic, atraumatic. No pharyngeal erythema. No thyromegaly. CARDIOVASCULAR: S1 and S2 present. No murmurs, rubs, or gallops. PULMONARY: Chest is clear to auscultation, no wheezing or crackles. ABDOMEN: distended sluggish bowel sounds no significant rebound or rigidity very minimal tenderness diffusely MUSCULOSKELETAL: No joint swelling or deformity. EXTREMITIES: No cyanosis, clubbing, or pedal edema. NEUROLOGICAL: Gross neurological examination did not reveal any focal deficits. SKIN: No rashes. Results CBC & Chem 7: 04/22/19 05:22 04/22/19 05:22 Labs: Abnormal Lab Results - Last 24 Hours (Table) 04/21/19 04/21/19 04/21/19 Range/Units 18:20 18:20 18:20 WBC 12.7 H (3.8-10.6) k/uL Neutrophils # 11.2 H (1.3-7.7) k/uL Carbon Dioxide 19 L (22-30) mmol/L Glucose 121 H (74-99) mg/dL Plasma Lactic Acid J Carlos 2.3 H* (0.7-2.0) mmol/L Lipase <10 L (23-300) U/L Urine Protein (Negative) Urine Ketones (Negative) 04/21/19 04/21/19 04/22/19 Range/Units 19:00 22:18 01:33 WBC (3.8-10.6) k/uL Neutrophils # (1.3-7.7) k/uL Carbon Dioxide (22-30) mmol/L Glucose (74-99) mg/dL Plasma Lactic Acid J Carlos 4.9 H* 3.2 H* (0.7-2.0) mmol/L Lipase (23-300) U/L Urine Protein Trace H (Negative) Urine Ketones 1+ H (Negative) 04/22/19 04/22/19 04/22/19 Range/Units 05:22 05:22 05:22 WBC 18.2 H (3.8-10.6) k/uL Neutrophils # 16.6 H (1.3-7.7) k/uL Carbon Dioxide 20 L (22-30) mmol/L Glucose 154 H (74-99) mg/dL Plasma Lactic Acid J Carlos 2.8 H* (0.7-2.0) mmol/L Lipase (23-300) U/L Urine Protein (Negative) Urine Ketones (Negative) Thrombosis Risk Factor Assmnt - Choose All That Apply Any of the Below Risk Factors Present?: Yes Each Risk Factor Represents 3 Points: Age 75 years or older Thrombosis Risk Factor Assessment Total Risk Factor Score: 3 Thrombosis Risk Factor Assessment Level: Moderate Risk Assessment and Plan Plan: -ileus: Patient is unremarkable and today does may have contributed to his urease along with the his previous surgeries and adhesions may have contributed to that. There is no evidence of infection and medics are not necessary disease will be discontinued. 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 Patient can be transferred out of [facility] to care -coronary artery disease: Patient will be resumed on his regular antiplatelet therapy and statins whenever he can tolerate medications, patient had a CABG in the past -Gases patient reflux disease Abdomen benign prostatic inhibitor. -Other psychiatric issues patient will be resumed on his at Seroquel an SSRI tonight and will clamp the NG tube at the time. -hyperlipidemia due to prophylaxis as subcutaneous heparin GI prophylaxis with Protonix
[2019-04-22] MEDS: KETOROLAC 30 MG/ML 1 ML VIAL IVP PRN ×2 (13:45→20:05)
[2019-04-22] MEDS: PANTOPRAZOLE 40 MG/10 ML VIAL IVP SCH (13:46)
[2019-04-22] MEDS: HEPARIN SODIUM,PORCINE 5,000 UNIT/ML 1 ML VIAL SQ SCH ×2 (15:29→23:20)
[2019-04-22] MEDS: GABAPENTIN 300 MG CAP PO SCH ×2 (15:33→20:05)
[2019-04-22] MEDS: QUEtiapine 200 MG TAB PO SCH (20:05)
[2019-04-23 07:51] LABS: Calcium 7.8 mg/dL (8.4-10.2); Potassium 4.3 mmol/L (3.5-5.1)
[2019-04-23] MEDS: ASPIRIN 81 MG PO SCH (08:12)
[2019-04-23] MEDS: SODIUM CHLORIDE 0.9% 1,000 ML IV SCH ×2 (08:12→17:23)
[2019-04-23] MEDS: ONDANSETRON 4 MG/2 ML VIAL IVP PRN ×2 (08:12→17:20)
[2019-04-23] MEDS: PANTOPRAZOLE 40 MG/10 ML VIAL IVP SCH (08:12)
[2019-04-23] MEDS: FOLIC ACID 1 MG TAB PO SCH (08:12)
[2019-04-23] MEDS: ATORVASTATIN 10 MG TAB PO SCH (08:12)
[2019-04-23] MEDS: GABAPENTIN 300 MG CAP PO SCH ×3 (08:12→20:38)
[2019-04-23] MEDS: DULoxetine HCL 30 MG CAPSULE.DR PO SCH (08:12)
[2019-04-23] MEDS: HEPARIN SODIUM,PORCINE 5,000 UNIT/ML 1 ML VIAL SQ SCH ×2 (08:12→15:13)
[2019-04-23] MEDS: KETOROLAC 30 MG/ML 1 ML VIAL IVP PRN ×2 (08:14→19:43)
--- NOTE | 2019-04-23 09:04 | XR ---
EXAMINATION TYPE: XR chest 1V DATE OF EXAM: 04/23/2019 COMPARISON: 04/22/2019 INDICATION: NG tube placement, small bowel obstruction TECHNIQUE: Single frontal view of the chest is obtained. FINDINGS: The heart size is normal. The pulmonary vasculature is normal. Mild subsegmental atelectasis at the right base is not excluded There is placement of a nasogastric tube. This extends through the thorax and has its tip located wit hin the right upper quadrant of the abdomen. IMPRESSION: 1. Nasogastric tube placement with the tip in the right upper quadrant of the abdomen. 2. Mild subsegmental atelectasis developing at the right base.
[2019-04-23] MEDS: HYDROmorphone 1 MG/ML 1 ML SYRINGE IVP PRN (09:07)
--- NOTE | 2019-04-23 09:07 | XR ---
EXAMINATION TYPE: XR abdomen 2V DATE OF EXAM: 04/23/2019 COMPARISON: 07/31/2016 INDICATION: Small bowel obstruction TECHNIQUE: Abdomen is examined in the upright view. Supine view is obtained. FINDINGS: Nonspecific bowel gas pattern is present. There are air-fluid levels within small bowel loops within the midabdomen. Some dilated loops of small bowel with air-fluid levels may be in the right lower cecilia drant. Air is within the colon. Air-fluid levels within the right lower quadrant ascending colon shani on. Findings are compatible with partial small bowel obstruction. Psoas margins are normal. No organomegaly is present. Nasogastric tube is present with the tip in the right midabdomen. Multiple brachytherapy seeds are within the pelvis. No mass effect is evident. Osseous structures margie ear normal. Epicardial leads appear to be present. IMPRESSION: 1. Scattered air-fluid levels with some prominent small bowel loops in the right lower quadrant. Find ings can be compatible with partial small bowel obstruction.
[2019-04-23 10:10] LABS: HCT 37.3 % (39.0-53.0); MCH 30.8 pg (25.0-35.0); MCHC 32.5 g/dL (31.0-37.0); MCV 94.8 fL (80.0-100.0); Mean Platelet Volume 7.4; Platelet Count 158 k/uL (150-450); RBC 3.94 m/uL (4.30-5.90); WBC 8.6 k/uL (3.8-10.6)
[2019-04-23 10:24] LABS: HGB 12.1 gm/dL (13.0-17.5)
--- NOTE | 2019-04-23 11:10 | P.PN ---
Subjective Progress Note Date: 04/23/19 CHIEF COMPLAINT: Abdominal pain HISTORY OF PRESENT ILLNESS: patient seen and examined this point the bedside. Patient reports his pain was a 10 out of 10 this morning, but has improved. He reports abdominal bloating. Denies passing flatus or having a bowel movement today, however there is a BM charted overnight, but patient denies. abdominal x- ray this morning reveals scattered air-fluid levels with some prominent small bowel loops in the right lower quadrant. Findings compatible with partial small bowel obstruction. Vital signs stable. Patient is afebrile. WBC 8.6. Hemoglobin 12.1 PHYSICAL EXAM: VITAL SIGNS: Reviewed. GENERAL: Well-developed in no acute distress. HEENT: No sclera icterus. Extraocular movements grossly intact. Moist buccal mucosa. Head is atraumatic, normocephalic. ABDOMEN: Slightly firm. Distended. Tenderness with palpation. Positive bowel sounds. NEUROLOGIC: Alert and oriented. Cranial nerves II through XII grossly intact. ASSESSMENT: 1. Partial small bowel obstruction 2. History of prostate and colon cancer 3. History of bowel resection, performed at [place] 3 years ago 4. History of previous bowel obstruction with exploratory laparotomy and lysis of adhesions, June 2016 PLAN: 1. NPO. Continue mouth swabs. Continue IV fluids 2. Continue NG to LIS 3. Begin PPN 4. Further recommendations pending patient course Nurse practitioner note has been reviewed by physician. Signing provider agrees with the documented findings, assessment, and plan of care. Objective - Vital Signs Vital signs: Vital Signs Temp 98.0 F 04/23/19 09:07 Pulse 80 04/23/19 09:07 Resp 18 04/23/19 09:07 BP 127/78 04/23/19 09:07 Pulse Ox 97 04/23/19 09:07 Intake & Output 04/22/19 04/23/19 04/23/19 18:59 06:59 18:59 Intake Total 1350 1220 Output Total 1000 70 Balance 350 1150 Weight 67.8 kg Intake: IV 1330 1220 Invasive Line 2 30 20 Piperacillin-Tazobactam 3 100 .375 gm In Sodium Chloride 0.9% 100 ml @ 25 mls/hr IVPB Q8H MYLA Rx#: [id number] Sodium Chloride 0.9% 1, 1200 1200 000 ml @ 150 mls/hr IV . Q6H40M MYLA Rx#:[id number] Oral 20 Output: Gastric Drainage 800 70 Urine 200 Stool 0 0 Other: Voiding Method Toilet Toilet Toilet # Voids 1 1 # Bowel Movements 2 - Labs CBC & Chem 7: 04/23/19 09:40 04/23/19 06:36 Labs: Abnormal Lab Results - Last 24 Hours (Table) 04/23/19 04/23/19 Range/Units 06:36 09:40 RBC 3.94 L (4.30-5.90) m/uL Hgb 12.1 L D (13.0-17.5) gm/dL Hct 37.3 L (39.0-53.0) % Chloride 113 H (98-107) mmol/L Calcium 7.8 L (8.4-10.2) mg/dL
[2019-04-23 11:44] VITALS: BMI 23.3
[2019-04-23] MEDS ORDERED: MVI, ADULT NO.4 WITH VIT K 10 ML, TRACE (CONC-1ML/DOSE) 1 ML in AMINO ACID 4.25%-D10W+L... IV SCH ×3 (11:45)
[2019-04-23 12:11] LABS: Magnesium 1.5 mg/dL (1.6-2.3); Phosphorus 2.2 mg/dL (2.5-4.5)
[2019-04-23] MEDS ORDERED: Magnesium Replacement Protocol 1 EACH MISC MISCELLANE PRN (12:16)
[2019-04-23 13:06] LABS: Albumin 3.2 g/dL (3.5-5.0)
[2019-04-23] MEDS: FAT EMULSION 20% 250 ML IV SCH (13:29)
[2019-04-23] MEDS: MAGNESIUM SULFATE-D5W PMX 1 GM in DEXTROSE/WATER 1 100ML.BAG IVPB SCH ×2 (13:29→14:46)
[2019-04-23] MEDS ORDERED: MENTHOL (NICE) LOZENGE MUCOUS MEM PRN (15:47)
[2019-04-23] MEDS: IOPAMIDOL-300 CONTRAST 30 ML VIAL (ORAL USE) PO PRN ×2 (15:54→16:52)
--- NOTE | 2019-04-23 18:05 | CT ---
EXAMINATION TYPE: CT abdomen pelvis wo con DATE OF EXAM: 04/23/2019 COMPARISON: 04/21/2019 HISTORY: Abdominal pain CT DLP: 315.7 mGycm Automated exposure control for dose reduction was used. TECHNIQUE: Helical acquisition of images was performed from the lung bases through the pelvis. FINDINGS: There is some pleural thickening and atelectasis at the posterior lung bases. There is no pericardial effusion. There are clips from cholecystectomy. Stomach appears normal. Spleen appears normal. There is no sign of pancreatic mass. There is no adrenal mass. Kidneys of normal size. There is no hydronephrosis. There is 2 mm calculus upper pole left kidney. Ureters are not dilated. There is mild bilateral perinephric stranding. There is intact urinary bladder. There are surgical clips in the prostate. There is penile prosthesis noted with catheter. There is no free fluid in the pelvis. There is no sign of a bowel obstruction. There is mild fat stranding in the paracolic gutters bilaterally. Appendix is not definitely seen. Th ere is no sign of thickened appendix. I see no bony destructive process. There is no lumbar compression fracture. Bony pelvis appears intac t. There is small umbilical hernia that contains fat. IMPRESSION: THERE IS MINIMAL PERINEPHRIC FAT STRANDING AND FLUID IN THE PARACOLIC GUTTERS THAT APPEARS INCREASED COMPARED TO RECENT EXAM. THIS COULD BE DUE TO HEART FAILURE.. NO EVIDENCE OF BOWEL INFLAMMATORY PROC ESS. NO SIGN OF APPENDICITIS. NO EVIDENCE OF RENAL OBSTRUCTION. THERE IS SOME INFILTRATE AND ATELECTASIS AND PLEURAL THICKENING AT THE POSTERIOR LUNG BASES INCREASED COMPARED TO RECENT EXAM.
[2019-04-23 18:10] LABS: Glucose,Whole Blood 122 mg/dL (75-99)
[2019-04-23] MEDS ORDERED: BENZOCAINE SPRAY 1 CAN MUCOUS MEM PRN (18:12)
--- NOTE | 2019-04-23 20:17 | P.PN ---
Subjective Progress Note Date: 04/23/19 Pt seen at bedside. He continues to complain of abdominal pain but decreased from yesterday. He is now passing flatus but no BM. His NGT output is significantly reduced from yesterday. Objective - Vital Signs Vital signs: Vital Signs Temp 98.0 F 04/23/19 14:14 Pulse 79 04/23/19 14:14 Resp 18 04/23/19 14:14 BP 142/79 04/23/19 14:14 Pulse Ox 98 04/23/19 14:14 Intake & Output 04/23/19 04/23/19 04/24/19 06:59 18:59 06:59 Intake Total 1220 Output Total 70 325 Balance 1150 -325 Weight 67.8 kg Intake: IV 1220 Invasive Line 2 20 Sodium Chloride 0.9% 1, 1200 000 ml @ 100 mls/hr IV . Q10H MYLA Rx#:[id number] Output: Gastric Drainage 70 Urine 325 Stool 0 Other: Voiding Method Toilet Toilet # Voids 1 0 # Bowel Movements 2 - Exam General: well developed, NAD, uncomfortable. Vitals reviewed CV: RRR, no murmur Lungs: clear Abd: firm, nondistended. Tender to palpation throughout, worst periumbilical - Labs CBC & Chem 7: 04/23/19 09:40 04/23/19 06:36 Labs: Abnormal Lab Results - Last 24 Hours (Table) 04/23/19 04/23/19 04/23/19 Range/Units 06:36 06:36 09:40 RBC 3.94 L (4.30-5.90) m/uL Hgb 12.1 L D (13.0-17.5) gm/dL Hct 37.3 L (39.0-53.0) % Chloride 113 H (98-107) mmol/L POC Glucose (mg/dL) (75-99) mg/dL Calcium 7.8 L (8.4-10.2) mg/dL Phosphorus 2.2 L (2.5-4.5) mg/dL Magnesium 1.5 L (1.6-2.3) mg/dL Albumin (3.5-5.0) g/dL 04/23/19 04/23/19 Range/Units 12:49 18:08 RBC (4.30-5.90) m/uL Hgb (13.0-17.5) gm/dL Hct (39.0-53.0) % Chloride (98-107) mmol/L POC Glucose (mg/dL) 122 H (75-99) mg/dL Calcium (8.4-10.2) mg/dL Phosphorus (2.5-4.5) mg/dL Magnesium (1.6-2.3) mg/dL Albumin 3.2 L (3.5-5.0) g/dL Assessment and Plan Plan: 1. partial SBO. History of previous SBO s/p laparotomy and lysis of adhesions. Surgery following. Continue IVF and NGT to LIS 2. GERD. Continue PPI 3. Mood disorder 4. HTN 5. HLD
[2019-04-23] MEDS: QUEtiapine 200 MG TAB PO SCH (20:38)
[2019-04-24 02:07] LABS: Glucose,Whole Blood 129 mg/dL (75-99)
[2019-04-24] MEDS: HEPARIN SODIUM,PORCINE 5,000 UNIT/ML 1 ML VIAL SQ SCH ×4 (02:53→23:48)
--- NOTE | 2019-04-24 05:32 | XR ---
EXAM: XR Chest, 1 View CLINICAL HISTORY: ITS.REASON XR Reason: check for NG tube position TECHNIQUE: Frontal view of the chest. COMPARISON: No relevant prior studies available. FINDINGS: Lungs: Unremarkable. No consolidation. Pleural space: Unremarkable. No pneumothorax. Heart: No pneumomediastinum. Mediastinum: Unremarkable. Bones/joints: No definite fracture. Tubes, lines and devices: NG tube in the stomach. IMPRESSION: NG tube in the stomach.
[2019-04-24] MEDS: SODIUM CHLORIDE 0.9% 1,000 ML IV SCH ×3 (05:33→20:23)
[2019-04-24] MEDS: 1: MVI, ADULT NO.4 WITH VIT K 10 ML, TRACE (CONC-1ML/DOSE) 1 ML in AMINO ACID 4.25%-D10W IV SCH ×6 (05:51→23:48)
[2019-04-24 06:26] LABS: Glucose,Whole Blood 123 mg/dL (75-99)
[2019-04-24] MEDS: KETOROLAC 30 MG/ML 1 ML VIAL IVP PRN ×2 (06:37→13:17)
[2019-04-24] MEDS: GABAPENTIN 300 MG CAP PO SCH ×3 (08:32→20:23)
[2019-04-24] MEDS: ASPIRIN 81 MG PO SCH (08:32)
[2019-04-24] MEDS: ATORVASTATIN 10 MG TAB PO SCH (08:32)
[2019-04-24] MEDS: FOLIC ACID 1 MG TAB PO SCH (08:32)
[2019-04-24] MEDS: DULoxetine HCL 30 MG CAPSULE.DR PO SCH (08:32)
[2019-04-24] MEDS: PANTOPRAZOLE 40 MG/10 ML VIAL IVP SCH (08:32)
[2019-04-24 09:51] LABS: ALT 25 U/L (21-72); AST 37 U/L (17-59); African American GFR (CKD) >90 (>60 ml/min/1.73 sqM); Albumin 3.2 g/dL (3.5-5.0); Alkaline Phosphatase 75 U/L (38-126); Anion Gap 6 mmol/L; Blood Urea Nitrogen 13 mg/dL (9-20); Calcium 8.2 mg/dL (8.4-10.2); Carbon Dioxide 24 mmol/L (22-30); Chloride 107 mmol/L (98-107); Glucose 133 mg/dL (74-99); Magnesium 2.1 mg/dL (1.6-2.3); Potassium 4.1 mmol/L (3.5-5.1); Sodium 137 mmol/L (137-145); Total Bilirubin 0.5 mg/dL (0.2-1.3); Total Protein 5.6 g/dL (6.3-8.2)
--- NOTE | 2019-04-24 11:28 | P.PN ---
Subjective Progress Note Date: 04/24/19 CHIEF COMPLAINT: Abdominal pain HISTORY OF PRESENT ILLNESS: patient seen and examined this morning at the bedside. Reports improvement in abdominal pain and distention. Denies nausea. Passing flatus. Denies BM. CT scan reviewed. PHYSICAL EXAM: VITAL SIGNS: Reviewed. GENERAL: Well-developed in no acute distress. HEENT: No sclera icterus. Extraocular movements grossly intact. Moist buccal mucosa. Head is atraumatic, normocephalic. ABDOMEN: Soft. Minimal distention. Nontender. Positive bowel sounds. NEUROLOGIC: Alert and oriented. Cranial nerves II through XII grossly intact. ASSESSMENT: 1. Partial small bowel obstruction 2. History of prostate and colon cancer 3. History of bowel resection, performed at [place] 3 years ago 4. History of previous bowel obstruction with exploratory laparotomy and lysis of adhesions, June 2016 PLAN: 1. Discontinue NG tube 2. Begin clear liquid diet 3. Continue PPN until patient tolerating 50% of full liquid/regular diet Nurse practitioner note has been reviewed by physician. Signing provider agrees with the documented findings, assessment, and plan of care. Objective - Vital Signs Vital signs: Vital Signs Temp 98.1 F 04/24/19 06:07 Pulse 69 04/24/19 06:07 Resp 16 04/24/19 08:00 BP 149/76 04/24/19 06:07 Pulse Ox 97 04/24/19 06:07 Intake & Output 04/23/19 04/24/19 04/24/19 18:59 06:59 18:59 Output Total 975 400 Balance -975 -400 Weight 67.8 kg Output: Gastric Drainage 100 Urine 975 300 Stool 0 Other: Voiding Method Toilet Toilet Urinal # Voids 2 2 - Labs CBC & Chem 7: 04/23/19 09:40 04/24/19 08:53 Labs: Abnormal Lab Results - Last 24 Hours (Table) 04/23/19 04/23/19 04/23/19 Range/Units 06:36 12:49 18:08 Glucose (74-99) mg/dL POC Glucose (mg/dL) 122 H (75-99) mg/dL Calcium (8.4-10.2) mg/dL Phosphorus 2.2 L (2.5-4.5) mg/dL Magnesium 1.5 L (1.6-2.3) mg/dL Total Protein (6.3-8.2) g/dL Albumin 3.2 L (3.5-5.0) g/dL 04/24/19 04/24/19 04/24/19 Range/Units 02:00 06:24 08:53 Glucose 133 H (74-99) mg/dL POC Glucose (mg/dL) 129 H 123 H (75-99) mg/dL Calcium 8.2 L (8.4-10.2) mg/dL Phosphorus 2.0 L (2.5-4.5) mg/dL Magnesium (1.6-2.3) mg/dL Total Protein 5.6 L (6.3-8.2) g/dL Albumin 3.2 L (3.5-5.0) g/dL
[2019-04-24 12:30] LABS: Glucose,Whole Blood 111 mg/dL (75-99)
[2019-04-24] MEDS: FAT EMULSION 20% 250 ML IV SCH ×2 (13:06→13:16)
[2019-04-24] MEDS: SODIUM PHOSPHATE 10 MMOL in SODIUM CHLORIDE 0.9% 250 ML IVPB SCH ×2 (13:16→20:25)
[2019-04-24] MEDS ORDERED: ACETAMINOPHEN TAB 325 MG TAB PO PRN (15:32)
[2019-04-24] MEDS ORDERED: LORazepam 1 MG TAB PO STA (16:56)
[2019-04-24 17:26] LABS: Glucose,Whole Blood 114 mg/dL (75-99)
[2019-04-24] MEDS ORDERED: Phosphorus Replacement Protoco 1 EACH MISC MISCELLANE PRN (17:27)
--- NOTE | 2019-04-24 17:30 | P.PN ---
Subjective Progress Note Date: 04/24/19 patient is a pleasant 78-year-old gentleman came with complaints of nausea vomiting abdominal pain and abdominal distention abdominal pain is moderate severity diffuse Carla nature. Patient denied any fever chills denied any dysuria cough. Patient is found to have ileus patient has abdominal surgeries in the past include cholecystectomy does have history of Crohn's disease because of which patient is on 2 antidiarrheal medications which can cause ileus . Patient was started on Dilaudid will start him on Toradol try to avoid Dilaudid kidney function is borderline at 1.1 patient had a 6 50 mL from the NG tube patient will be started on 1 50 mL of IV normal saline. Patient was transferred to [facility] because of elevated blood pressures and patient was on labetalol IV which will be this can urine patient was started on clonidine patch. Patient has an NG tube in place. Repeat the abdominal x-rays will be obtained for tomorrow. Lites will be monitored and repeated expected to have lo w potassium because of loss from the NG tube and natriuretic hypokalemia.there is no evidence of infection at this time patient came in with lactate of 4.9 and now 2.8 to this is secondary to severe intravascular volume depletion antibiotics will not be beneficial and medics will be discontinued WBC count is 18,200 each is reactive in nature. 04/23/2019Pt seen at bedside. He continues to complain of abdominal pain but decreased from yesterday. He is now passing flatus but no BM. His NGT output is significantly reduced from yesterday. 04/24/2019 maintained on gentle IV fluid hydration, PPN. reports improving abdominal pain. Burping, Passing flatus, no bowel movement. Denies nausea or vomiting. Denies chest pain, palpitations or shortness of breath. Objective - Vital Signs Vital signs: Vital Signs Temp 98.1 F 04/24/19 06:07 Pulse 69 04/24/19 06:07 Resp 18 04/24/19 06:07 BP 149/76 04/24/19 06:07 Pulse Ox 97 04/24/19 06:07 Intake & Output 04/23/19 04/24/19 04/24/19 18:59 06:59 18:59 Output Total 975 400 Balance -975 -400 Weight 67.8 kg Output: Gastric Drainage 100 Urine 975 300 Stool 0 Other: Voiding Method Toilet Toilet # Voids 2 2 - Exam GENERAL: The patient is alert and oriented x3, not in any acute distress. Well developed, well nourished. HEENT: Pupils are round and equally reacting to light. EOMI. No scleral icterus. No conjunctival pallor. Normocephalic, atraumatic. No pharyngeal erythema. No thyromegaly. NG tube present. CARDIOVASCULAR: S1 and S2 present. No murmurs, rubs, or gallops. PULMONARY: Chest is clear to auscultation, no wheezing or crackles. ABDOMEN: Softer,distended sluggish bowel sounds no significant rebound or rigidity mild tenderness periumbilical MUSCULOSKELETAL: No joint swelling or deformity. EXTREMITIES: No cyanosis, clubbing, or pedal edema. NEUROLOGICAL: Gross neurological examination did not reveal any focal deficits. SKIN: No rashes. - Labs CBC & Chem 7: 04/23/19 09:40 04/24/19 08:53 Labs: Abnormal Lab Results - Last 24 Hours (Table) 04/23/19 04/23/19 04/23/19 Range/Units 06:36 09:40 12:49 RBC 3.94 L (4.30-5.90) m/uL Hgb 12.1 L D (13.0-17.5) gm/dL Hct 37.3 L (39.0-53.0) % Glucose (74-99) mg/dL POC Glucose (mg/dL) (75-99) mg/dL Calcium (8.4-10.2) mg/dL Phosphorus 2.2 L (2.5-4.5) mg/dL Magnesium 1.5 L (1.6-2.3) mg/dL Total Protein (6.3-8.2) g/dL Albumin 3.2 L (3.5-5.0) g/dL 04/23/19 04/24/19 04/24/19 Range/Units 18:08 02:00 06:24 RBC (4.30-5.90) m/uL Hgb (13.0-17.5) gm/dL Hct (39.0-53.0) % Glucose (74-99) mg/dL POC Glucose (mg/dL) 122 H 129 H 123 H (75-99) mg/dL Calcium (8.4-10.2) mg/dL Phosphorus (2.5-4.5) mg/dL Magnesium (1.6-2.3) mg/dL Total Protein (6.3-8.2) g/dL Albumin (3.5-5.0) g/dL 04/24/19 Range/Units 08:53 RBC (4.30-5.90) m/uL Hgb (13.0-17.5) gm/dL Hct (39.0-53.0) % Glucose 133 H (74-99) mg/dL POC Glucose (mg/dL) (75-99) mg/dL Calcium 8.2 L (8.4-10.2) mg/dL Phosphorus 2.0 L (2.5-4.5) mg/dL Magnesium (1.6-2.3) mg/dL Total Protein 5.6 L (6.3-8.2) g/dL Albumin 3.2 L (3.5-5.0) g/dL Assessment and Plan Assessment: 1. partial SBO. History of previous SBO s/p laparotomy and lysis of adhesions. 2. GERD. Continue PPI 3. Mood disorder 4. HTN 5. HLD 6. Hypophosphatemia Plan: Continue on current medication regime ,monitoring and symptomatic treatment. Maintain IV fluid hydration. Minimal drainage, anticipate DC of the NG tube with diet advancement as per surgery. Increase activity as tolerated. Supplement phosphorus as per replacement protocol. The impression and plan of care has been dictated as directed. : I performed a history and examination of this patient, discussed the same with the dictator. I agree with the dictator's note ,documented as a scribe. Any additional findings or plans will be noted.
[2019-04-24] MEDS: QUEtiapine 200 MG TAB PO SCH (20:23)
[2019-04-25] MEDS ORDERED: ALPRAZolam 0.25 MG TAB PO STA (00:14)
[2019-04-25 00:27] LABS: Glucose,Whole Blood 158 mg/dL (75-99)
[2019-04-25 06:01] LABS: Glucose,Whole Blood 136 mg/dL (75-99)
[2019-04-25] MEDS: HEPARIN SODIUM,PORCINE 5,000 UNIT/ML 1 ML VIAL SQ SCH ×2 (07:52→16:26)
[2019-04-25] MEDS: ATORVASTATIN 10 MG TAB PO SCH (07:52)
[2019-04-25] MEDS: FOLIC ACID 1 MG TAB PO SCH (07:52)
[2019-04-25] MEDS: GABAPENTIN 300 MG CAP PO SCH ×2 (07:52→16:26)
[2019-04-25] MEDS: PANTOPRAZOLE 40 MG/10 ML VIAL IVP SCH (07:52)
[2019-04-25] MEDS: DULoxetine HCL 30 MG CAPSULE.DR PO SCH (07:53)
[2019-04-25] MEDS: ASPIRIN 81 MG PO SCH (07:53)
[2019-04-25] MEDS: SODIUM CHLORIDE 0.9% 1,000 ML IV SCH (07:55)
[2019-04-25 11:46] LABS: ALT 28 U/L (21-72); AST 43 U/L (17-59); African American GFR (CKD) >90 (>60 ml/min/1.73 sqM); Albumin 3.5 g/dL (3.5-5.0); Alkaline Phosphatase 93 U/L (38-126); Anion Gap 9 mmol/L; Blood Urea Nitrogen 13 mg/dL (9-20); Calcium 8.6 mg/dL (8.4-10.2); Carbon Dioxide 23 mmol/L (22-30); Chloride 105 mmol/L (98-107); Glucose 137 mg/dL (74-99); Magnesium 1.9 mg/dL (1.6-2.3); Phosphorus 2.9 mg/dL (2.5-4.5); Sodium 137 mmol/L (137-145); Total Bilirubin 0.6 mg/dL (0.2-1.3); Total Protein 6.1 g/dL (6.3-8.2)
[2019-04-25 12:00] LABS: Potassium 4.1 mmol/L (3.5-5.1)
[2019-04-25 12:31] LABS: Glucose,Whole Blood 115 mg/dL (75-99)
[2019-04-25] MEDS: 1: MVI, ADULT NO.4 WITH VIT K 10 ML, TRACE (CONC-1ML/DOSE) 1 ML in AMINO ACID 4.25%-D10W IV SCH ×3 (13:02)
--- NOTE | 2019-04-25 13:02 | P.PN ---
Subjective Progress Note Date: 04/25/19 CHIEF COMPLAINT: Abdominal pain HISTORY OF PRESENT ILLNESS: patient seen and examined this morning at the bedside. Patient denies abdominal pain. Patient reports passing flatus and having a bowel movement yesterday. He is tolerating clear liquid diet. Denies nausea or vomiting. PHYSICAL EXAM: VITAL SIGNS: Reviewed. GENERAL: Well-developed in no acute distress. HEENT: No sclera icterus. Extraocular movements grossly intact. Moist buccal mucosa. Head is atraumatic, normocephalic. ABDOMEN: Soft. Nondistended. Nontender. Positive bowel sounds. NEUROLOGIC: Alert and oriented. Cranial nerves II through XII grossly intact. ASSESSMENT: 1. Partial small bowel obstruction 2. History of prostate and colon cancer 3. History of bowel resection, performed at [place] 3 years ago 4. History of previous bowel obstruction with exploratory laparotomy and lysis of adhesions, June 2016 PLAN: Advance diet to full liquid. DC PPN If patient tolerates full liquid lunch, agreeable to discharge home today Nurse practitioner note has been reviewed by physician. Signing provider agrees with the documented findings, assessment, and plan of care. Objective - Vital Signs Vital signs: Vital Signs Temp 97.7 F 04/25/19 06:10 Pulse 61 04/25/19 06:10 Resp 18 04/25/19 08:00 BP 161/75 04/25/19 06:10 Pulse Ox 99 04/25/19 06:10 Intake & Output 04/24/19 04/25/19 04/25/19 18:59 06:59 18:59 Intake Total 200 Output Total 400 75 Balance -400 200 -75 Intake: Oral 200 Output: Gastric Drainage 100 Urine 300 75 Stool 0 Other: Voiding Method Urinal Urinal Urinal # Voids 2 1 1 # Bowel Movements 1 - Labs CBC & Chem 7: 04/23/19 09:40 04/25/19 10:52 Labs: Abnormal Lab Results - Last 24 Hours (Table) 04/24/19 04/24/19 04/25/19 Range/Units 12:24 17:20 00:25 Glucose (74-99) mg/dL POC Glucose (mg/dL) 111 H 114 H 158 H (75-99) mg/dL Total Protein (6.3-8.2) g/dL 04/25/19 04/25/19 Range/Units 06:00 10:52 Glucose 137 H (74-99) mg/dL POC Glucose (mg/dL) 136 H (75-99) mg/dL Total Protein 6.1 L (6.3-8.2) g/dL
[2019-04-25 15:15] VITALS: BP 153/79; PULSE 67; RESP 20; TEMP 98.3
--- NOTE | 2019-04-26 11:19 | P.DS ---
Providers Date of admission: 04/22/19 11:23 Expected date of discharge: 04/26/19 Attending physician: Kenneth Luciano MD Consults: 04/22/19 09:22 Consult Physician Urgent Consulting Provider: Robert Uribe Consult Reason/Comments: Small bowel obstruction vs ileus Do you want consulting provider notified?: Yes Primary care physician: Gail Tidwell Hospital Course: Final Diagnoses: 1. partial SBO. History of previous SBO s/p laparotomy and lysis of adhesions. 2. GERD. Continue PPI 3. Mood disorder 4. HTN 5. HLD 6. Hypophosphatemia Hospital course:patient is a pleasant 78-year-old gentleman came with complaints of nausea vomiting abdominal pain and abdominal distention abdominal pain is moderate severity diffuse Carla nature. Patient denied any fever chills den ied any dysuria cough. Patient is found to have ileus patient has abdominal surgeries in the past include cholecystectomy does have history of Crohn's disease because of which patient is on 2 antidiarrheal medications which can cause ileus . Patient was started on Dilaudid will start him on Toradol try to avoid Dilaudid kidney function is borderline at 1.1 patient had a 6 50 mL from the NG tube patient will be started on 1 50 mL of IV normal saline. Patient was transferred to [facility] because of elevated blood pressures and patient was on labetalol IV which will be this can urine patient was started on clonidine patch. Patient has an NG tube in place. Repeat the abdominal x-rays will be obtained for tomorrow. Lites will be monitored and repeated expected to have low potassium because of loss from the NG tube and natriuretic hypokalemia.there is no evidence of infection at this time patient came in with lactate of 4.9 and now 2.8 to this is secondary to severe intravascular volume depletion antibiotics will not be beneficial and medics will be discontinued WBC count is 18,200 each is reactive in nature. 04/23/2019Pt seen at bedside. He continues to complain of abdominal pain but decreased from yesterday. He is now passing flatus but no BM. His NGT output is significantly reduced from yesterday. 04/24/2019 maintained on gentle IV fluid hydration, PPN. reports improving abdominal pain. Burping, Passing flatus, no bowel movement. Denies nausea or vomiting. Denies chest pain, palpitations or shortness of breath. Maintained on IV fluid hydration, PPN .NG tube discontinued, tolerated full liquid diet. Denies abdominal pain. Passing flatus and bowel movement. Cleared by surgery for discharge. Significant clinical improvement. Patient is being discharged home in a stable condition with guarded prognosis. - Exam GENERAL: The patient is alert and oriented x3, not in any acute distress. CARDIOVASCULAR: S1 and S2 present. No murmurs, rubs, or gallops. PULMONARY: Chest is clear to auscultation, no wheezing or crackles. ABDOMEN: Softer,distended sluggish bowel sounds no significant rebound or rigidity mild tenderness periumbilical NEUROLOGICAL: Gross neurological examination did not reveal any focal deficits. The impression and plan of care has been dictated as directed. : I performed a history and examination of this patient, discussed the same with the dictator. I agree with the dictator's note ,documented as a scribe. Any additional findings or plans will be noted. Time taken: 35 minutes Patient Condition at Discharge: Stable Plan - Discharge Summary Discharge Rx Participant: No New Discharge Prescriptions: New cloNIDine 0.1 MG/24HR PATCH [Catapres-TTS] 1 patch TRANSDERM Q7D #4 patch Continue Omeprazole [PriLOSEC] 40 mg PO DAILY Folic Acid 1 mg PO DAILY Aspirin EC [Ecotrin Low Dose] 81 mg PO DAILY Gabapentin [Neurontin] 600 mg PO TID Colestipol HCl 3 tab PO TID Diphenox-Atrop 2.5-0.025 mg [Lomotil] 2 tab PO QID PRN PRN Reason: Diarrhea Dicyclomine [Bentyl] 20 mg PO QID PRN PRN Reason: IBS DULoxetine HCL [Cymbalta] 30 mg PO DAILY Simvastatin [Zocor] 20 mg PO DAILY QUEtiapine FUMARATE [SEROquel] 200 mg PO HS Discharge Medication List Omeprazole [PriLOSEC] 40 mg PO DAILY 03/18/16 [History] Aspirin EC [Ecotrin Low Dose] 81 mg PO DAILY 07/29/16 [History] Folic Acid 1 mg PO DAILY 07/29/16 [History] Colestipol HCl 3 tab PO TID 04/21/19 [History] DULoxetine HCL [Cymbalta] 30 mg PO DAILY 04/21/19 [History] Dicyclomine [Bentyl] 20 mg PO QID PRN 04/21/19 [History] Diphenox-Atrop 2.5-0.025 mg [Lomotil] 2 tab PO QID PRN 04/21/19 [History] Gabapentin [Neurontin] 600 mg PO TID 04/21/19 [History] QUEtiapine FUMARATE [SEROquel] 200 mg PO HS 04/21/19 [History] Simvastatin [Zocor] 20 mg PO DAILY 04/21/19 [History] cloNIDine 0.1 MG/24HR PATCH [Catapres-TTS] 1 patch TRANSDERM Q7D #4 patch 04/25/19 [Rx] Follow up Appointment(s)/Referral(s): Gail Tidwell DO [Primary Care Provider] - 04/27/19 3:15 pm Robert Uribe MD [STAFF PHYSICIAN] - 1 Week Ambulatory/Diagnostic Orders: Complete Blood Count w/diff [LAB.AMB] Time Frame: 3 Days, Location: None Selected Patient Instructions/Handouts: Ileus (DC) Activity/Diet/Wound Care/Special Instructions: Diet; Soft, low fat,low fiber Activity: limited until follow up Discharge Disposition: HOME SELF-CARE
== END 2019-04-25 17:31 | disposition home or self-care (01) | DRG 389 ==
LOC: EC 17:47 → 4SSUR 21:13 → 3SCARD 04-22 00:10 → OBSVTOIN 04-22 11:23 → 4MS4W 04-23 09:03
PROVIDERS: ADMIT Family Medicine; ATTEND Family Medicine
PROC: 0D9670Z Drainage of Stomach with Drainage Device, Via Natural or Artificial Opening (ICD-10-PCS; principal; 2019-04-22)
DX: K56.690 Other partial intestinal obstruction (principal); E87.2 Acidosis; K50.90 Crohn's disease, unspecified, without complications; E86.9 Volume depletion, unspecified; K21.9 Gastro-esophageal reflux disease without esophagitis; I25.10 Atherosclerotic heart disease of native coronary artery without angina pectoris; I10 Essential (primary) hypertension; E78.5 Hyperlipidemia, unspecified; N42.9 Disorder of prostate, unspecified; M19.90 Unspecified osteoarthritis, unspecified site; E83.39 Other disorders of phosphorus metabolism; E87.6 Hypokalemia; Z79.82 Long term (current) use of aspirin; Z79.899 Other long term (current) drug therapy; Z85.038 Personal history of other malignant neoplasm of large intestine; Z85.46 Personal history of malignant neoplasm of prostate; Z85.828 Personal history of other malignant neoplasm of skin; Z90.49 Acquired absence of other specified parts of digestive tract; Z95.1 Presence of aortocoronary bypass graft
CPT/HCPCS: 36415; 71045; 74019; 74176; 74177; 80048; 80053; 81003; 82040; 82150; 82330; 83605; 83690; 83735; 84100; 84478; 85025; 85027; 96361; 96374; 96375; 99285

== ENCOUNTER 2020-04-04 19:20 | Inpatient (IN) | payer MEDICARE, BC ==
--- NOTE | 2020-04-04 19:51 | ED ---
General Adult HPI - General Chief complaint: Syncope Stated complaint: Syncope Time Seen by Provider: 04/04/20 19:37 Source: patient Mode of arrival: ambulatory Limitations: no limitations - History of Present Illness Initial comments: Dictation was produced using [employer] dictation software. please excuse any grammatical, word or spelling errors. This patient was cared for during a federal and state declared state of emergency secondary to Covid 19 Chief Complaint: 79-year-old male presents with syncope. History of Present Illness:-year-old male for the last several weeks patient has been having intermittent episodes of syncope. He states that they occur randomly. Patient states that he could be just walking around when all of a sudden he passes out weeks of on the floor. He thinks that he is unconscious for several minutes. Patient feels well at rest. He denies any palpitations prior to his syncopal episodes. He decided come in today because he had 2 episodes today. Patient has no other complaints. No pain complaints. The ROS documented in this emergency department record has been reviewed and confirmed by me. Those systems with pertinent positive or negative responses have been documented in the HPI. All other systems are other negative and/or noncontributory. PHYSICAL EXAM: General Impression: Alert and oriented x3, not in acute distress HEENT: Normocephalic atraumatic, extra-ocular movements intact, pupils equal and reactive to light bilaterally, mucous membranes moist. Cardiovascular: Heart regular rate and rhythm, no murmurs Chest: Able to complete full sentences, no retractions, no tachypnea, clear to auscultation Abdomen: abdomen soft, non-tender, non-distended, no organomegaly Musculoskeletal: Pulses present and equal in all extremities, no peripheral edema Motor: no focal deficits noted Neurological: CN II-XII grossly intact, no focal motor or sensory deficits noted Skin: Intact with no visualized rashes Psych: Normal affect and mood ED course: 79-year-old male presents with syncopal episodes. Signs upon arrival are within acceptable limits. EKG is nonrevealing. Laboratory evaluation obtained. CBC acceptable. Coag panel unremarkable. Metabolic panel shows slight potassium of 5.2, bicarb of 16 with no gap. Elevated renal markers concerning for acute kidney injury. Glucose 121, rest of vital signs within acceptable limits. Computed tomography scan of the head and C-spine shows no acute processes. Chest x-ray was nonacute. At this point patient's clinical presentation consistent with acute kidney injury. Believe that patient's syncope is likely from dehydration. However given patient's age and comorbidities believe he'll benefit from inpatient admission for syncopal workup. Patient be admitted to [facility] hospitalist [facility]. Patient is agreeable with disposition. EKG interpretation: Ventricular rate 88, normal sinus rhythm,. 196, QRS 80, QTC 411. No AL prolongation, no QTC prolongation, no ST or T-wave changes noted. . Overall, this EKG is unremarkable - Related Data Home Medications Medication Instructions Recorded Confirmed Omeprazole [PriLOSEC] 40 mg PO DAILY 03/18/16 04/21/19 Aspirin EC [Ecotrin Low Dose] 81 mg PO DAILY 07/29/16 04/21/19 Folic Acid 1 mg PO DAILY 07/29/16 04/21/19 Colestipol HCl 3 tab PO TID 04/21/19 04/21/19 DULoxetine HCL [Cymbalta] 30 mg PO DAILY 04/21/19 04/21/19 Dicyclomine [Bentyl] 20 mg PO QID PRN 04/21/19 04/21/19 Diphenox-Atrop 2.5-0.025 mg 2 tab PO QID PRN 04/21/19 04/21/19 [Lomotil] Gabapentin [Neurontin] 600 mg PO TID 04/21/19 04/21/19 QUEtiapine FUMARATE [SEROquel] 200 mg PO HS 04/21/19 04/21/19 Simvastatin [Zocor] 20 mg PO DAILY 04/21/19 04/21/19 Previous Rx's Medication Instructions Recorded cloNIDine 0.1 MG/24HR PATCH 1 patch TRANSDERM Q7D #4 patch 04/25/19 [Catapres-TTS] Allergies Allergy/AdvReac Type Severity Reaction Status Date / Time No Known Allergies Allergy Verified 04/04/20 19:32 Review of Systems ROS Statement: Those systems with pertinent positive or pertinent negative responses have been documented in the HPI. ROS Other: All systems not noted in ROS Statement are negative. 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 , STATES BILATERAL INGUINAL HERNIA REPAIR. bowel resect Past Anesthesia/Blood Transfusion Reactions: No Reported Reaction Past Psychological History: No Psychological Hx Reported Smoking Status: Never smoker Past Alcohol Use History: Rare Past Drug Use History: None Reported - Past Family History Mother Family Medical History: No Reported History General Exam Limitations: no limitations Course Vital Signs 04/04/20 04/04/20 19:30 21:00 Temperature 97.9 F Pulse Rate 95 80 Respiratory 16 16 Rate Blood Pressure 119/81 160/98 O2 Sat by Pulse 100 100 Oximetry Medical Decision Making - Lab Data Result diagrams: 04/04/20 20:52 04/04/20 20:52 Lab Results 04/04/20 04/04/20 04/04/20 Range/Units 20:52 20:52 20:52 WBC 6.6 (3.8-10.6) k/uL RBC 3.26 L (4.30-5.90) m/uL Hgb 10.1 L (13.0-17.5) gm/dL Hct 31.4 L (39.0-53.0) % MCV 96.4 (80.0-100.0) fL MCH 31.1 (25.0-35.0) pg MCHC 32.2 (31.0-37.0) g/dL RDW 13.3 (11.5-15.5) % Plt Count 270 (150-450) k/uL Neutrophils % 71 % Lymphocytes % 22 % Monocytes % 4 % Eosinophils % 2 % Basophils % 1 % Neutrophils # 4.7 (1.3-7.7) k/uL Lymphocytes # 1.5 (1.0-4.8) k/uL Monocytes # 0.2 (0-1.0) k/uL Eosinophils # 0.1 (0-0.7) k/uL Basophils # 0.0 (0-0.2) k/uL PT 11.3 (9.0-12.0) sec INR 1.1 (<1.2) APTT 25.9 (22.0-30.0) sec Sodium 137 (137-145) mmol/L Potassium 5.2 H (3.5-5.1) mmol/L Chloride 111 H (98-107) mmol/L Carbon Dioxide 16 L (22-30) mmol/L Anion Gap 10 mmol/L BUN 41 H (9-20) mg/dL Creatinine 1.98 H (0.66-1.25) mg/dL Est GFR (CKD-EPI)AfAm 36 (>60 ml/min/1.73 sqM) Est GFR (CKD-EPI)NonAf 31 (>60 ml/min/1.73 sqM) Glucose 121 H (74-99) mg/dL Calcium 10.2 (8.4-10.2) mg/dL Magnesium 1.6 (1.6-2.3) mg/dL Total Bilirubin 0.3 (0.2-1.3) mg/dL AST 21 (17-59) U/L ALT 12 (4-49) U/L Alkaline Phosphatase 74 (38-126) U/L Troponin I (0.000-0.034) ng/mL Total Protein 7.1 (6.3-8.2) g/dL Albumin 4.2 (3.5-5.0) g/dL 04/04/20 Range/Units 20:52 WBC (3.8-10.6) k/uL RBC (4.30-5.90) m/uL Hgb (13.0-17.5) gm/dL Hct (39.0-53.0) % MCV (80.0-100.0) fL MCH (25.0-35.0) pg MCHC (31.0-37.0) g/dL RDW (11.5-15.5) % Plt Count (150-450) k/uL Neutrophils % % Lymphocytes % % Monocytes % % Eosinophils % % Basophils % % Neutrophils # (1.3-7.7) k/uL Lymphocytes # (1.0-4.8) k/uL Monocytes # (0-1.0) k/uL Eosinophils # (0-0.7) k/uL Basophils # (0-0.2) k/uL PT (9.0-12.0) sec INR (<1.2) APTT (22.0-30.0) sec Sodium (137-145) mmol/L Potassium (3.5-5.1) mmol/L Chloride (98-107) mmol/L Carbon Dioxide (22-30) mmol/L Anion Gap mmol/L BUN (9-20) mg/dL Creatinine (0.66-1.25) mg/dL Est GFR (CKD-EPI)AfAm (>60 ml/min/1.73 sqM) Est GFR (CKD-EPI)NonAf (>60 ml/min/1.73 sqM) Glucose (74-99) mg/dL Calcium (8.4-10.2) mg/dL Magnesium (1.6-2.3) mg/dL Total Bilirubin (0.2-1.3) mg/dL AST (17-59) U/L ALT (4-49) U/L Alkaline Phosphatase (38-126) U/L Troponin I <0.012 (0.000-0.034) ng/mL Total Protein (6.3-8.2) g/dL Albumin (3.5-5.0) g/dL Disposition Clinical Impression: Syncope Disposition: ADMITTED IP TO THIS HOSP Condition: Fair Referrals: Gail Tidwell DO [Primary Care Provider] - 1-2 days Decision Time: 22:17
[2020-04-04 21:07] LABS: Basophils % (A) 1 %; Eosinophils # (A) 0.1 k/uL (0-0.7); Eosinophils % (A) 2 %; HCT 31.4 % (39.0-53.0); HGB 10.1 gm/dL (13.0-17.5); Lymphocytes # (A) 1.5 k/uL (1.0-4.8); Lymphocytes % (A) 22 %; MCH 31.1 pg (25.0-35.0); MCHC 32.2 g/dL (31.0-37.0); MCV 96.4 fL (80.0-100.0); Mean Platelet Volume 7.3; Monocytes # (A) 0.2 k/uL (0-1.0); Monocytes % (A) 4 %; Neutrophils # (A) 4.7 k/uL (1.3-7.7); Neutrophils % (A) 71 %; Platelet Count 270 k/uL (150-450); RBC 3.26 m/uL (4.30-5.90); RDW 13.3 % (11.5-15.5); WBC 6.6 k/uL (3.8-10.6)
[2020-04-04 21:17] LABS: INR 1.1 (<1.2); Partial Thromboplastin Time 25.9 sec (22.0-30.0); Prothrombin Time 11.3 sec (9.0-12.0)
[2020-04-04 21:29] LABS: Albumin 4.2 g/dL (3.5-5.0); Calcium 10.2 mg/dL (8.4-10.2); Magnesium 1.6 mg/dL (1.6-2.3); Potassium 5.2 mmol/L (3.5-5.1); Total Bilirubin 0.3 mg/dL (0.2-1.3); Total Protein 7.1 g/dL (6.3-8.2)
--- NOTE | 2020-04-04 21:32 | XR ---
EXAMINATION TYPE: XR chest 1V portable DATE OF EXAM: 04/04/2020 COMPARISON: 04/24/2019 HISTORY: Syncope TECHNIQUE: FINDINGS: There is no heart failure nor confluent pneumonic infiltrate. Costophrenic angles are clear . There are sternal wires. IMPRESSION: No active cardiopulmonary disease. No adverse change.
--- NOTE | 2020-04-04 21:40 | CT ---
EXAMINATION TYPE: CT brain sandra wo con DATE OF EXAM: 04/04/2020 COMPARISON: 05/05/[address] scan HISTORY: fall, multiple syncopal episodes Headache. Neck pain CT DLP: 1348.6 mGycm Automated exposure control for dose reduction was used. There is cerebral cortical atrophy. There is no mass effect nor midline shift. There is no sign of in tracranial hemorrhage. The calvarium is intact. Sella turcica appears normal. Cervical vertebra have normal alignment. There is mild spurring of the endplates. Facet joints are in tact. There is no evidence of a fracture. The skull base is intact. IMPRESSION: Cerebral atrophy. No acute intracranial abnormality. Minor degenerative changes in the cervical spine . No fracture. Brain unchanged compared to old exam.
[2020-04-04] MEDS ORDERED: SODIUM CHLORIDE 0.9% 1,000 ML IV STA ×2 (21:56)
[2020-04-04] MEDS ORDERED: NALOXONE 0.4 MG/ML 1 ML VIAL IV PRN (22:17)
[2020-04-04] MEDS ORDERED: ACETAMINOPHEN TAB 325 MG TAB PO PRN (22:17)
[2020-04-05] MEDS ORDERED: QUETIAPINE FUMARATE 200 MG PO SCH (01:00)
[2020-04-05] MEDS: QUEtiapine 100 MG TAB PO SCH ×2 (01:27→20:42)
[2020-04-05] MEDS ORDERED: DIPHENOX-ATROP 2.5-0.025 MG 1 EACH TAB PO PRN (11:29)
[2020-04-05] MEDS ORDERED: DICYCLOMINE 20 MG TAB PO PRN (11:29)
[2020-04-05] MEDS ORDERED: IBUPROFEN 800 MG TAB PO PRN (11:29)
[2020-04-05] MEDS ORDERED: OCTREOTIDE LAR 30 MG IM SCH (11:30)
[2020-04-05] MEDS ORDERED: [UNRECOGNIZED DRUG - OTHER] IM SCH (11:30)
[2020-04-05] MEDS ORDERED: OCTREOTIDE ACETATE IM SCH (11:30)
--- NOTE | 2020-04-05 12:05 | CONS ---
CONSULTATION CHIEF COMPLAINT: Syncope. Reinier is an 79-year-old gentleman with history of coronary artery disease, dyslipidemia, hypertension, osteoarthritis, prior history of bypass surgery, cholecystectomy, bowel resection, CA prostate, who has had chronic diarrhea, presented to hospital having had an episode of syncope at home. The patient states that he was sitting in his kitchen and then suddenly passed out. Did not have any injury. He denies chest pain, difficulty in breathing, or focal neurological deficits. An EKG shows sinus rhythm and is within normal limits. LABS: Show a hemoglobin of 10, platelet count is 270. Potassium is 5.2, BUN is 41, creatinine is 1.98. Troponin is normal. At the time of my evaluation, patient appears comfortable at rest. He remains in sinus rhythm. Has mild orthostatic changes. He also has evidence of intravascular volume depletion with elevated BUN and creatinine. I am going to first hydrate him and see how he does. If he still has orthostatic changes and has symptoms, I will consider putting him on midodrine. PAST MEDICAL HISTORY: Significant for coronary artery disease status post CABG, dyslipidemia, chronic diarrhea. MEDICATIONS: At home include aspirin, Bentyl, Cymbalta, Zocor, Lomotil, Quetiapine, Neurontin, Motrin, K-Dur, Privigen. ALLERGIES: There are no known drug allergies. FAMILY HISTORY: Negative for premature coronary artery disease. SOCIAL HISTORY: Negative for current smoking, EtOH abuse, or drug abuse. REVIEW OF SYSTEMS: HEENT is unremarkable. Cardiac as described above. Respiratory as described above. GI negative. Genitourinary negative. ALLERGY/IMMUNOLOGY: None. SKIN negative. MUSCULOSKELETAL significant for arthritis. Psychosocial negative. Endocrine negative. Constitutional negative. Oncological negative. FACING END TRIMMER negative. Rest of the system review is not relevant. EXAM: Heart rate is 90 beats per minute. Afebrile. Respiratory rate is 18. O2 saturation is 99% on room air. Orthostatics showed blood pressures of 160/80, 153/89 and 139/91. There is no jugular venous distention. Carotid upstroke is normal. There is no bruit. Chest exam reveals good air entry bilaterally. Heart exam reveals first and second heart sounds. Systolic murmur at the apex. Abdomen is soft. Exam of extremities did not reveal edema. Peripheral pulses are felt. LAB: Show a hemoglobin of 10, BUN of 41, creatinine of 1.98. ASSESSMENT: 1. Syncope secondary to orthostatic hypotension. 2. Coronary artery disease, status post CABG. 3. Dyslipidemia. 4. Intravascular volume depletion. PLAN: I will hydrate the patient. Obtain a 2D echo and decide on further course based on how things evolve. MONICA / THIAGO: [id number] /
[2020-04-05] MEDS: ASPIRIN 81 MG PO SCH (13:18)
[2020-04-05] MEDS: FLUTICASONE 50MCG/SPRAY NASAL 16GM EA NOSTRIL SCH (13:18)
[2020-04-05] MEDS: SODIUM CHLORIDE 0.9% 1,000 ML IV SCH (13:21)
[2020-04-05] MEDS: DULoxetine HCL 60 MG CAPSULE.DR PO SCH ×2 (13:26→20:42)
--- NOTE | 2020-04-05 14:03 | US ---
EXAMINATION TYPE: US carotid duplex BILAT DATE OF EXAM: 04/05/2020 COMPARISON: NONE CLINICAL HISTORY: stroke. syncope EXAM MEASUREMENTS: RIGHT: Peak Systolic Velocity (PSV) cm/sec ----- Right CCA: 88.3 ----- Right ICA: 98.7 ----- Right ECA: 125 ICA/CCA ratio: 1.07 RIGHT: End Diastole cm/sec ----- Right CCA: 13.0 ----- Right ICA: 29.2 ----- Right ECA: 0.0 LEFT: Peak Systolic Velocity (PSV) cm/sec ----- Left CCA: 88.3 ----- Left ICA: 94.8 ----- Left ECA: 125 ICA/CCA ratio: 1.07 LEFT: End Diastole cm/sec ----- Left CCA: 14.9 ----- Left ICA: 16.2 ----- Left ECA: 0.0 VERTEBRALS (direction of flow): Right Vertebral: Antegrade Left Vertebral: Antegrade Rhythm: Normal Mild plaque noted bilateral bifurcations. No evidence of increased velocities IMPRESSION: I DO NOT SEE EVIDENCE OF A HEMODYNAMICALLY SIGNIFICANT STENOSIS IN EITHER CAROTID SYSTEM. Criteria for Assigning % of Stenosis / Diameter reduction (Estimation based on the indirect measurements of the internal carotid artery velocities (ICA PSV). 1. Normal (no stenosis)=ICA PSV < 125 cm/s: ratio < 2.0: ICA EDV<40 cm/s. 2. Less than 50% stenosis=ICA PSV < 125 cm/s: ratio < 2.0: ICA EDV<40 cm/s. 3. 50 to 69% stenosis=ICA PSV of 125 to 230 cm/s: ration 2.0 ? 4.0: ICA EDV 40-100 cm/s. 4. Greater than 70% stenosis to near occlusion= ICA PSV > 230 cm/s: ratio > 4.0: ICA EDV > 100 cm/s. 5. Near occlusion= ICA PSV velocities may be low or undetectable: variable ratio and ICA EDV. 6. Total occlusion=unable to detect flow.
[2020-04-05] MEDS ORDERED: ALPRAZolam 0.25 MG TAB PO PRN (15:40)
[2020-04-05] MEDS ORDERED: HYDROmorphone 0.5 MG/0.5 ML SYRINGE IVP PRN (15:40)
--- NOTE | 2020-04-05 17:11 | HP ---
HISTORY AND PHYSICAL DATE OF SERVICE: 04/05/2020 CHIEF COMPLAINT: Syncope. HISTORY OF PRESENT ILLNESS: This 79-year-old gentleman with the past medical history of CAD, CABG, history of bowel resection, GERD, hypertension, hyperlipidemia, being followed by Dr. Gail Tidwell in the outpatient setting was admitted with multiple episodes of syncope. About 2 weeks ago the patient was walking to the shed and patient passed out. Yesterday also the patient had recurrent episodes of passing out and falling on the floor. The patient was unconscious for several minutes apparently. The patient was taken to [facility] and admitted for further evaluation and treatment. The patient was found to be orthostatic hypotensive progress at this time. The blood pressure was 123/39 on lying and 139/91 on standing up. There is no history of fever, rigors. No history of headache. Patient also had some dehydration, renal failure also. Chest x- ray is not available. There is no history of fever, rigors or chills. The patient is feeling cold. PAST MEDICAL HISTORY: History of CAD, GERD, hypertension, hyperlipidemia, DJD, history of prostate and colon cancer, history of skin cancer, history of CABG. MEDICATIONS PRIOR TO ADMISSION: 1. Prevagen. 2. Octreotide. 3. Magnesium oxide. 4. Motrin. 5. K-Dur 10 mEq. 6. Fluticasone spray. 7. Folic acid. 8. Neurontin. 9. Seroquel. 10.Prilosec. 12.Zocor. 13.Cymbalta. 14.Lomotil. 15.Bentyl. 16.Ecotrin. ALLERGIES: None. FAMILY HISTORY: No history of heart attacks or strokes in the family. SOCIAL HISTORY: No history of smoking. No history of alcohol intake. REVIEW OF SYSTEMS: ENT No history of diminished hearing or vision. CARDIOVASCULAR No angina or palpitations. RESPIRATORY As mentioned earlier. GI No nausea, vomiting, or diarrhea. No dysuria or hematuria. NERVOUS As mentioned earlier. ALLERGY/IMMUNOLOGY No asthma or hayfever. MUSCULOSKELETAL As mentioned earlier. HEMATOLOGY/ONCOLOGY As mentioned earlier. ENDOCRINE No history of diabetes or hypothyroidism. CONSTITUTIONAL As mentioned earlier. DERMATOLOGY Negative. RHEUMATOLOGY Negative, PSYCHIATRY As mentioned earlier. PHYSICAL EXAMINATION: Alert and oriented x3. Pulse 96, blood pressure 140/90, respirations 16, temperature 97.2, pulse ox 99% on room air. Orthostatic changes noted. HEENT: Conjunctivae normal. Oral mucosa moist. NECK: No jugular venous distention. No lymph node enlargement. CARDIOVASCULAR: S1, S2, muffled. No S3, no S4, RESPIRATORY: Diminished breath sounds at the bases. A few scattered rhonchi and crackles. ABDOMEN: Soft, nontender. No mass palpable. LEGS: No edema, no swelling. NERVOUS SYSTEM: Higher functions mentioned earlier. Moves all four limbs. No focal motor or sensory deficits. LYMPHATICS: No lymph node in neck or axilla. SKIN: No rash. JOINTS: No active deforming arthropathy. LABS: WBC 6.2, hemoglobin 10.1, CO2 16, and creatinine is ( ).8. ASSESSMENT: 1. Syncope secondary to orthostatic hypotension. 2. Dehydration, acute prerenal acute tubular necrosis, present on admission. 3. Acute metabolic acidosis secondary to renal failure. 4. Anemia, normocytic anemia of chronic disease. 5. Coronary artery disease, coronary artery bypass graft. 6. History of gastroesophageal reflux disease. 7. Hypertension. 8. Hyperlipidemia. 9. Degenerative joint disease. 10.History of prostate and colon cancer. 11.History of bowel resection. 12.History of hernia repair. 13.FULL CODE. RECOMMENDATIONS AND DISCUSSION: In this 79-year-old gentleman who presented with multiple complex medical issues, we will monitor the patient closely, continue the current management and symptomatic treatment. Otherwise, at this time I recommend monitor the blood pressure closely, cautious IV fluids. Otherwise, avoid antihypertensive medications. Closely follow with Cardiology. Multiple consultations. I would also obtain chest x-ray and a set of cultures and UA to rule out the possibility of infection. Otherwise, prognosis guarded because of multiple complex medical issues. Further recommendations to follow. MMODL / IJN: [id number] / [id number]
[2020-04-05] MEDS: IOPAMIDOL CONTRAST (ORAL USE) VIAL PO PRN ×2 (18:30→19:29)
[2020-04-05] MEDS: HYDROcodone/APAP 5-325MG 1 EACH TAB PO PRN (18:32)
[2020-04-05 18:48] LABS: Appearance,Urine Clear (Clear); Bilirubin,Urine Negative (Negative); Blood,Urine Negative (Negative); Color,Urine Light Yellow; Glucose,Urine (UA) Negative (Negative); Ketones,Urine Negative (Negative); Leukocyte Esterase,Urine Negative (Negative); Nitrite,Urine Negative (Negative); PH, Urine 5.5 (5.0-8.0); Protein,Urine Negative (Negative); Specific Gravity,Urine 1.013 (1.001-1.035); Urobilinogen,Urine <2.0 mg/dL (<2.0)
[2020-04-05] MEDS ORDERED: ONDANSETRON 4 MG/2 ML VIAL IVP PRN (19:48)
--- NOTE | 2020-04-05 20:32 | CT ---
EXAMINATION TYPE: CT abdomen pelvis wo con DATE OF EXAM: 04/05/2020 COMPARISON: 04/23/2019 HISTORY: Abdominal pain and nausea CT DLP: 272.9 mGycm Automated exposure control for dose reduction was used. Images were obtained from the diaphragm to the floor the pelvis without IV contrast. There is some or al contrast. Lung bases are clear of infiltrate. There is no pleural effusion. There is no pericardial effusion. H eart size is normal. There is hiatal hernia. The stomach is intact. Liver spleen pancreas appear normal. Bile ducts are no t dilated. There is no adrenal mass. Kidneys have normal size. There is no hydronephrosis. Ureters are not dilat ed. There is no retroperitoneal adenopathy. There is 2 mm calculus posterior left kidney. There is 2 mm calculus in the right kidney. There is 1 mm calculus lower pole left kidney. Bladder distends smoo thly. There is penile implant with catheter and balloon noted. There is no inguinal hernia. There is prostate implants. There is no evidence of prostate mass. There is no free fluid in the pelvis. There is no evidence of a bowel obstruction. Appendix is not se en. There is no sign of thickened appendix. Terminal ileum appears normal. Lumbar vertebra have fairly normal spacing and alignment. There is no compression fracture. I see no bony destructive process. Bony pelvis appears intact. IMPRESSION: Compared to old exam there is clearing of the infiltrate and atelectasis right posterior lung base. Nonobstructing bilateral renal calculi. No sign of acute abdomen and pelvis. There is mild perinephri c fat stranding unchanged compared to old exam.
[2020-04-05] MEDS: ATORVASTATIN 10 MG TAB PO SCH (20:42)
[2020-04-05] MEDS: HEPARIN SODIUM,PORCINE 5,000 UNIT/ML 1 ML VIAL SQ SCH (20:42)
[2020-04-05] MEDS: GABAPENTIN 300 MG CAP PO SCH (20:42)
[2020-04-06] MEDS: SODIUM CHLORIDE 0.9% 1,000 ML IV SCH ×3 (05:25→20:14)
[2020-04-06 07:20] LABS: Calcium 8.4 mg/dL (8.4-10.2); Potassium 4.5 mmol/L (3.5-5.1)
[2020-04-06 07:27] LABS: Basophils % (A) 0 %; Eosinophils # (A) 0.2 k/uL (0-0.7); Eosinophils % (A) 2 %; HCT 26.3 % (39.0-53.0); HGB 8.8 gm/dL (13.0-17.5); Lymphocytes # (A) 1.9 k/uL (1.0-4.8); Lymphocytes % (A) 32 %; MCH 32.3 pg (25.0-35.0); MCHC 33.6 g/dL (31.0-37.0); MCV 96.2 fL (80.0-100.0); Mean Platelet Volume 7.3; Monocytes # (A) 0.3 k/uL (0-1.0); Monocytes % (A) 5 %; Neutrophils # (A) 3.6 k/uL (1.3-7.7); Neutrophils % (A) 59 %; Platelet Count 229 k/uL (150-450); RBC 2.73 m/uL (4.30-5.90); RDW 13.6 % (11.5-15.5); WBC 6.1 k/uL (3.8-10.6)
--- NOTE | 2020-04-06 07:50 | ECHOF ---
Referral Reason:syncope MEASUREMENTS -------- HEIGHT: 170.2 cm WEIGHT: 63.5 kg BP: 161/88 RVIDd: 3.2 cm (< 3.3) IVSd: 1.2 cm (0.6 - 1.1) LVIDd: 4.8 cm (3.9 - 5.3) LVPWd: 1.3 cm (0.6 - 1.1) IVSs: 1.6 cm LVIDs: 3.2 cm LVPWs: 1.9 cm LA Diam: 3.2 cm (2.7 - 3.8) LAESV Index (A-L): 24.71 ml/m Ao Diam: 3.4 cm (2.0 - 3.7) AV Cusp: 2.1 cm (1.5 - 2.6) MV EXCURSION: 11.714 mm (> 18.000) MV EF SLOPE: 28 mm/s (70 - 150) EPSS: 0.8 cm MV E Jovanny: 0.76 m/s MV DecT: 310 ms MV A Jovanny: 1.22 m/s MV E/A Ratio: 0.62 RAP: 5.00 mmHg RVSP: 29.15 mmHg FINDINGS -------- Sinus rhythm. This was a technically good study. The left ventricular size is normal. There is borderline concentric left ventricular hypertrophy. Overall left ventricular systolic function is normal with, an EF between 65 - 70 %. The right ventricle is normal in size. Normal LA size by volume 22+/-6 ml/m2. The right atrium is normal in size. Interatrial and interventricular septum intact. The aortic valve is trileaflet and appears structurally normal. There is trace to mild mitral regurgitation. Mild tricuspid regurgitation present. Right ventricular systolic pressure is normal at < 35 mmHg. Trace/mild (physiologic) pulmonic regurgitation. The aortic root size is normal. IVC Not well visulized. There is no pericardial effusion. CONCLUSIONS -------- 1. Sinus rhythm. 2. This was a technically good study. 3. The left ventricular size is normal. 4. There is borderline concentric left ventricular hypertrophy. 5. Overall left ventricular systolic function is normal with, an EF between 65 - 70 %. 6. The right ventricle is normal in size. 7. Normal LA size by volume 22+/-6 ml/m2. 8. The right atrium is normal in size. 9. Interatrial and interventricular septum intact. 10. The aortic valve is trileaflet and appears structurally normal. 11. There is trace to mild mitral regurgitation. 12. Mild tricuspid regurgitation present. 13. Right ventricular systolic pressure is normal at < 35 mmHg. 14. Trace/mild (physiologic) pulmonic regurgitation. 15. The aortic root size is normal. 16. IVC Not well visulized. 17. There is no pericardial effusion. CUSTOMER CARE CONSULTANT: Laurita Ospina RDCS
[2020-04-06] MEDS: ASPIRIN 81 MG PO SCH (08:06)
[2020-04-06] MEDS: GABAPENTIN 300 MG CAP PO SCH ×2 (08:06→20:09)
[2020-04-06] MEDS: FOLIC ACID 1 MG TAB PO SCH (08:06)
[2020-04-06] MEDS: DULoxetine HCL 60 MG CAPSULE.DR PO SCH ×2 (08:06→20:09)
[2020-04-06] MEDS: MULTIVITAMINS, THERA 1 EACH TAB PO SCH (08:06)
[2020-04-06] MEDS: PANTOPRAZOLE 40 MG TABLET PO SCH (08:06)
[2020-04-06] MEDS: POTASSIUM CHLORIDE ER 10 MEQ TAB.ER.PRT PO SCH (08:07)
[2020-04-06] MEDS: FLUTICASONE 50MCG/SPRAY NASAL 16GM EA NOSTRIL SCH (08:07)
[2020-04-06] MEDS: HEPARIN SODIUM,PORCINE 5,000 UNIT/ML 1 ML VIAL SQ SCH ×2 (08:07→20:10)
[2020-04-06] MEDS: MAGNESIUM OXIDE 400 MG TAB PO SCH (08:07)
[2020-04-06] MEDS ORDERED: NON FORMULARY DRUG (Prevagen 1 TAB) PO SCH (09:00)
--- NOTE | 2020-04-06 15:54 | PN ---
PROGRESS NOTE He is feeling much better today. No further syncopal events. Blood pressure has improved. His prerenal azotemia has resolved. Hemoglobin has dropped probably secondary to dilution. On exam, comfortable at rest. Vital signs are stable. There is no jugular venous distention. Chest exam reveals good air entry bilaterally. Heart exam reveals first and second heart sounds. No gallop. Exam of extremities did not reveal any edema. An echocardiogram today shows normal LV systolic function. Labs show a hemoglobin of 8.8, potassium is 4.5, creatinine is 1. ASSESSMENT: Syncope secondary to intravascular volume depletion. PLAN: Patient is doing well. He is stable for discharge. Please arrange follow up with me in 2 weeks after discharge. MMODL / IJN: [id number] /
[2020-04-06] MEDS: HYDROcodone/APAP 5-325MG 1 EACH TAB PO PRN (20:09)
[2020-04-06] MEDS: ATORVASTATIN 10 MG TAB PO SCH (20:09)
[2020-04-06] MEDS: QUEtiapine 100 MG TAB PO SCH (20:09)
--- NOTE | 2020-04-07 03:46 | PN ---
PROGRESS NOTE DATE OF SERVICE: 04/06/2020 This 79-year-old gentleman who was admitted with syncope, had orthostatic hypotension. Patient also had dehydration. Patient also had abdomen pelvis CAT scan. The patient was complaining of abdominal pain. The patient was using Motrin significantly. The CAT scan showed nonobstructing bilateral renal calculi. The patient is also being seen by Cardiology and gastroenterology consultation has been also sought for possible endoscopes. No chest pain. No palpitations. No fever. PHYSICAL EXAMINATION: On exam, alert and oriented x3. Pulse 85, blood pressure 148/91, respiration 20, temperature 98.4, pulse ox 97% on room air. HEENT: Conjunctivae normal. NECK: No jugular venous distention. CARDIOVASCULAR: S1, S2 muffled. RESPIRATORY: Breath sounds diminished at the bases. A few rhonchi, no crackles. ABDOMEN: Soft, mild diffuse discomfort. LEGS: No edema. No swelling. NERVOUS SYSTEM: No focal deficits. LABS: WBC 6.1, hemoglobin is 8.8, sodium 136, potassium 4.5. ASSESSMENT: 1. Syncope secondary to orthostatic hypotension, possibly. 2. Anemia, rule out gastrointestinal bleed, acute on chronic. 3. Dehydration with acute renal failure with acute tubular necrosis, present on admission. 4. Acute metabolic acidosis secondary to renal failure. 5. Anemia, normocytic anemia of chronic disease. 6. Coronary artery disease, coronary artery bypass grafting history. 7. History of gastroesophageal reflux disease. 8. Hypertension. 9. Hyperlipidemia. 10.History of degenerative joint disease. 11.History of prostate and colon cancer. 12.History of bowel resection. 13.History of hernia repair. 14.FULL CODE. RECOMMENDATIONS AND DISCUSSION: I recommend to continue current medications, continue with symptomatic treatment. Otherwise continue with hydration. Monitor creatinine closely. Otherwise, we will monitor the hemoglobin also closely. Recommend possibly endoscopy and gastroenterology evaluation. Guarded prognosis. Further recommendations to follow. MMODL / IJN: [id number] /
[2020-04-07 06:45] LABS: Basophils % (A) 0 %; Eosinophils # (A) 0.2 k/uL (0-0.7); Eosinophils % (A) 4 %; HCT 26.6 % (39.0-53.0); HGB 8.8 gm/dL (13.0-17.5); Lymphocytes # (A) 1.7 k/uL (1.0-4.8); Lymphocytes % (A) 27 %; MCH 31.9 pg (25.0-35.0); MCHC 33.2 g/dL (31.0-37.0); Mean Platelet Volume 7.1; Monocytes # (A) 0.3 k/uL (0-1.0); Monocytes % (A) 5 %; Neutrophils % (A) 63 %; Platelet Count 192 k/uL (150-450); RBC 2.77 m/uL (4.30-5.90); RDW 13.6 % (11.5-15.5); WBC 6.3 k/uL (3.8-10.6)
[2020-04-07 07:03] LABS: Calcium 8.2 mg/dL (8.4-10.2); Potassium 4.2 mmol/L (3.5-5.1)
[2020-04-07 09:12] LABS: Reticulocyte % 3.7 % (0.5-2.0)
[2020-04-07] MEDS: GABAPENTIN 300 MG CAP PO SCH ×2 (09:13→20:40)
[2020-04-07] MEDS: DULoxetine HCL 60 MG CAPSULE.DR PO SCH ×2 (09:13→20:41)
[2020-04-07] MEDS: ASPIRIN 81 MG PO SCH (09:13)
[2020-04-07] MEDS: FOLIC ACID 1 MG TAB PO SCH (09:13)
[2020-04-07] MEDS: PANTOPRAZOLE 40 MG TABLET PO SCH (09:13)
[2020-04-07] MEDS: HEPARIN SODIUM,PORCINE 5,000 UNIT/ML 1 ML VIAL SQ SCH ×2 (09:14→20:39)
[2020-04-07] MEDS: POTASSIUM CHLORIDE ER 10 MEQ TAB.ER.PRT PO SCH (09:14)
[2020-04-07] MEDS: FLUTICASONE 50MCG/SPRAY NASAL 16GM EA NOSTRIL SCH (09:14)
[2020-04-07] MEDS: MAGNESIUM OXIDE 400 MG TAB PO SCH (09:14)
[2020-04-07] MEDS: MULTIVITAMINS, THERA 1 EACH TAB PO SCH (09:14)
[2020-04-07] MEDS ORDERED: IBUPROFEN 400 MG TAB PO PRN (15:31)
--- NOTE | 2020-04-07 16:13 | P.DS ---
Providers Date of admission: 04/06/20 10:30 Expected date of discharge: 04/07/20 Attending physician: Kenneth Luciano MD Consults: 04/04/20 22:18 Consult Physician Routine Consulting Provider: Joan Christopher Consult Reason/Comments: syncope Do you want consulting provider notified?: Yes 04/06/20 10:37 Consult Physician Routine Consulting Provider: Joanna Gould Consult Reason/Comments: Abdominal pain/Possible GI Bleed/Hgb 8.8 Do you want consulting provider notified?: Yes Primary care physician: Gail Tidwell Hospital Course: Final diagnoses Syncope secondary to intravascular volume depletion, orthostatic hypotension ruled out. Anemia, outpatient colonoscopy recommended Gait dysfunction, recent fall History of bowel resection History of bowel repair CAD, history of CABG Gastroesophageal reflux disease Degenerative joint disease Hypertension Hyperlipidemia Hospital course: This is an 79-year-old gentleman admitted with multiple medical issues including syncope, anemia. Received gentle IV fluid hydration .echo reported normal LV function .hemoglobin stable .no further syncopal events. Significant clinical improvement. Evaluated by a GI, outpatient colonoscopy recommended. Evaluated by cardiology recommending follow-up visit in 2 weeks. Patient will be discharged home today in a stable condition with guarded prognosis, pending PT /OT evaluation. The impression and plan of care has been dictated as directed. : I performed a history and examination of this patient, discussed the same with the dictator. I agree with the dictator's note ,documented as a scribe. Any additional findings or plans will be noted. Patient Condition at Discharge: Stable Plan - Discharge Summary Discharge Rx Participant: No New Discharge Prescriptions: New Multivitamins, Thera [Multivitamin (formulary)] 1 each PO DAILY@1200 #0 tab Continue Omeprazole [PriLOSEC] 40 mg PO DAILY Folic Acid 1 mg PO DAILY Aspirin EC [Ecotrin Low Dose] 81 mg PO DAILY Gabapentin [Neurontin] 600 mg PO BID Diphenox-Atrop 2.5-0.025 mg [Lomotil] 2 tab PO QID PRN PRN Reason: Diarrhea Dicyclomine [Bentyl] 20 mg PO QID PRN PRN Reason: IBS Simvastatin [Zocor] 20 mg PO HS QUEtiapine FUMARATE [QUEtiapine FUMARATE ER] 200 mg PO HS Mansoor-Forte 1mg 1 mg PO DAILY DULoxetine HCL [Cymbalta] 60 mg PO BID Magnesium Oxide [Carrasquillo] 500 mg PO DAILY Potassium Chloride ER [K-Dur 10] 10 meq PO DAILY Fluticasone Nasal [place] [Flonase Nasal [place]] 2 spr EA NOSTRIL DAILY Prevagen 1 tab PO DAILY Octreotide Acetate,Mi-Spheres [SandoSTATIN LAR [place]] 10 mg IM Q28D Octreotide Acetate,Mi-Spheres [SandoSTATIN LAR [place]] 30 mg IM Q28D Changed Ibuprofen [Motrin] 400 mg PO TID PRN #0 PRN Reason: Pain Discharge Medication List Omeprazole [PriLOSEC] 40 mg PO DAILY 03/18/16 [History] Aspirin EC [Ecotrin Low Dose] 81 mg PO DAILY 07/29/16 [History] Folic Acid 1 mg PO DAILY 07/29/16 [History] Dicyclomine [Bentyl] 20 mg PO QID PRN 04/21/19 [History] Diphenox-Atrop 2.5-0.025 mg [Lomotil] 2 tab PO QID PRN 04/21/19 [History] Gabapentin [Neurontin] 600 mg PO BID 04/21/19 [History] Simvastatin [Zocor] 20 mg PO HS 04/21/19 [History] DULoxetine HCL [Cymbalta] 60 mg PO BID 04/04/20 [History] Fluticasone Nasal [place] [Flonase Nasal [place]] 2 spr EA NOSTRIL DAILY 04/04/20 [History] Magnesium Oxide [[place]] 500 mg PO DAILY 04/04/20 [History] Octreotide Acetate,Mi-Spheres [SandoSTATIN [place]AR [place]] 10 mg IM Q28D 04/04/20 [History] Octreotide Acetate,Mi-Spheres [SandoSTATIN [place]] 30 mg IM Q28D 04/04/20 [History] Potassium Chloride ER [K-Dur 10] 10 meq PO DAILY 04/04/20 [History] Prevagen 1 tab PO DAILY 04/04/20 [History] QUEtiapine FUMARATE [QUEtiapine FUMARATE ER] 200 mg PO HS 04/04/20 [History] Mansoor-Forte 1mg 1 mg PO DAILY 04/04/20 [History] Ibuprofen [Motrin] 400 mg PO TID PRN #0 04/07/20 [Rx] Multivitamins, Thera [Multivitamin (formulary)] 1 each PO DAILY@1200 #0 tab 04/07/20 [Rx] Follow up Appointment(s)/Referral(s): Gail Tidwell DO [Primary Care Provider] - 04/14/20 11:00 am (You will see .) Maximus Gould MD [STAFF PHYSICIAN] - 04/21/20 4:30 pm Ambulatory/Diagnostic Orders: Complete Blood Count w/diff [LAB.AMB] Time Frame: 3 Days, Location: None Selected Patient Instructions/Handouts: Dehydration (DC), Syncope (DC), Acute Abdominal Pain (DC), Fall Prevention (DC)
[2020-04-07] MEDS: SODIUM CHLORIDE 0.9% 1,000 ML IV SCH (16:40)
[2020-04-07] MEDS: HYDROcodone/APAP 5-325MG 1 EACH TAB PO PRN (20:39)
[2020-04-07] MEDS: QUEtiapine 100 MG TAB PO SCH (20:41)
[2020-04-07] MEDS: ATORVASTATIN 10 MG TAB PO SCH (20:41)
[2020-04-07 21:14] VITALS: PULSE 89
[2020-04-07 23:05] LABS: Ferritin 283.2 ng/mL (22.0-322.0)
[2020-04-07 23:14] LABS: % Iron Saturation 53.11 (15.00-50.00); Iron 94 ug/dL (65-175); Total Iron Binding Capacity 177 ug/dL (228-460)
[2020-04-07 23:15] LABS: Folate, Serum >24.0 ng/mL
[2020-04-08 04:18] VITALS: BP 110/64; RESP 16; TEMP 98.3
[2020-04-08] MEDS: SODIUM CHLORIDE 0.9% 1,000 ML IV SCH (04:24)
[2020-04-08 08:41] LABS: Basophils % (A) 0 %; Eosinophils # (A) 0.2 k/uL (0-0.7); Eosinophils % (A) 4 %; HCT 27.2 % (39.0-53.0); HGB 9.1 gm/dL (13.0-17.5); Lymphocytes # (A) 1.7 k/uL (1.0-4.8); Lymphocytes % (A) 27 %; MCH 31.3 pg (25.0-35.0); MCHC 33.4 g/dL (31.0-37.0); MCV 93.6 fL (80.0-100.0); Monocytes # (A) 0.3 k/uL (0-1.0); Monocytes % (A) 5 %; Neutrophils # (A) 3.9 k/uL (1.3-7.7); Neutrophils % (A) 63 %; Platelet Count 206 k/uL (150-450); RDW 13.7 % (11.5-15.5); WBC 6.3 k/uL (3.8-10.6)
[2020-04-08 08:48] LABS: Calcium 8.2 mg/dL (8.4-10.2)
--- NOTE | 2020-04-08 08:59 | P.PN ---
Subjective Progress Note Date: 04/07/20 He is feeling improved today, BP is stable although pt remains weak. He is hesitant for discharge to [facility]. Objective - Vital Signs Vital signs: Vital Signs Temp 98.3 F 04/08/20 04:18 Pulse 89 04/08/20 04:18 Resp 16 04/08/20 04:18 BP 110/64 04/08/20 04:18 Pulse Ox 99 04/08/20 04:18 Intake & Output 04/07/20 04/08/20 04/08/20 18:59 06:59 18:59 Intake Total 2460 300 Output Total 1800 100 Balance 660 300 -100 Intake: Intake, IV Titration 900 Amount Sodium Chloride 0.9% 1, 900 000 ml @ 75 mls/hr IV . [id number] [facility] Rx#:[id number] Oral 1560 300 Output: Urine 1800 100 Other: Voiding Method Toilet Toilet Urinal Urinal # Voids 2 1 # Bowel Movements 1 - Exam Gen: well developed, NAD HEENT: mucus membranes moist CV: RRR, no murmur Lungs: clear throughout Ext: unsteady balance Neuro: alert and oriented x3 - Labs CBC & Chem 7: 04/08/20 07:58 04/08/20 07:58 Labs: Abnormal Lab Results - Last 24 Hours (Table) 04/07/20 04/07/20 04/08/20 Range/Units 06:19 06:19 07:58 RBC 2.90 L (4.30-5.90) m/uL Hgb 9.1 L (13.0-17.5) gm/dL Hct 27.2 L (39.0-53.0) % Retic Count 3.7 H (0.5-2.0) % Sodium (137-145) mmol/L Carbon Dioxide (22-30) mmol/L Calcium (8.4-10.2) mg/dL TIBC 177 L (228-460) ug/dL % Saturation 53.11 H (15.00-50.00) 04/08/20 Range/Units 07:58 RBC (4.30-5.90) m/uL Hgb (13.0-17.5) gm/dL Hct (39.0-53.0) % Retic Count (0.5-2.0) % Sodium 130 L (137-145) mmol/L Carbon Dioxide 20 L (22-30) mmol/L Calcium 8.2 L (8.4-10.2) mg/dL TIBC (228-460) ug/dL % Saturation (15.00-50.00) Microbiology - Last 24 Hours (Table) 04/05/20 16:39 Blood Culture - Preliminary Blood No Growth after 48 hours Assessment and Plan (1) Syncope Current Visit: Yes Status: Acute Code(s): R55 - SYNCOPE AND COLLAPSE SNOMED Code(s): 799490575 (2) Multiple falls Current Visit: No Status: Acute Code(s): R29.6 - REPEATED FALLS SNOMED Cod e(s): 910364331 (3) Weakness Current Visit: No Status: Acute Code(s): R53.1 - WEAKNESS SNOMED Code(s): 28141610 Plan: 1. Syncope, secondary to orthostatic hypotension and intravascular volume depletion. Rehydrated with IVF. Pt remains weak today, recommending PT/OT eval and consider discharge to [facility] 2. Flank pain. CT with nephrolithiasis and UA normal. Will discharge pt with strainer
[2020-04-08] MEDS: POTASSIUM CHLORIDE ER 10 MEQ TAB.ER.PRT PO SCH (09:49)
[2020-04-08] MEDS: MULTIVITAMINS, THERA 1 EACH TAB PO SCH (09:49)
[2020-04-08] MEDS: DULoxetine HCL 60 MG CAPSULE.DR PO SCH (09:49)
[2020-04-08] MEDS: FOLIC ACID 1 MG TAB PO SCH (09:49)
[2020-04-08] MEDS: HEPARIN SODIUM,PORCINE 5,000 UNIT/ML 1 ML VIAL SQ SCH (09:49)
[2020-04-08] MEDS: FLUTICASONE 50MCG/SPRAY NASAL 16GM EA NOSTRIL SCH (09:50)
[2020-04-08] MEDS: ASPIRIN 81 MG PO SCH (09:50)
[2020-04-08] MEDS: PANTOPRAZOLE 40 MG TABLET PO SCH (09:50)
[2020-04-08] MEDS: GABAPENTIN 300 MG CAP PO SCH (09:50)
[2020-04-08] MEDS: MAGNESIUM OXIDE 400 MG TAB PO SCH (09:54)
--- NOTE | 2020-04-08 23:11 | P.CONS ---
History of Present Illness - Reason for Consult Consult date: 04/07/20 Abdominal pain,diarrhea Requesting physician: Kenneth Luciano - Chief Complaint Syncope - History of Present Illness 79-year-old male with multiple medical comorbidities including coronary artery disease, anemia, GERD, hypertension, dyslipidemia and prior diagnosis of prost ate cancer and colon cancer who presented to the hospital due to concerns over syncopal event. The patient was evaluated by the cardiology service for his syncopal episode.. The patient reports a chronic history of diarrhea since 2011. He reports multiple loose bowel movements daily. He also underwent small bowel resection in 2016. The patient denied any signs or symptoms of GI bleeding and hemoglobin remained stable during his stay. He was given Bentyl therapy for abdominal pain. Review of Systems REVIEW OF SYSTEMS: CONSTITUTIONAL: Denies any fevers, chills, weight change or fatigue. CARDIOVASCULAR: Denies any chest pain, palpitations high or low blood pressures, but did report a syncopal episode prior to presentation. RESPIRATORY: Denies any shortness of breath, hemoptysis or cough. GENITOURINARY: No dysuria or hematuria, known history of prostate cancer. MUSCULOSKELETAL: No weakness reported. SKIN: Denies any new rashes or lesions, jaundice or pallor. PSYCHIATRIC: Denies any depression or anxiety. NEUROLOGY: Denies headache, denies any new focal deficits. EARS/NOSE/THROAT: No recent hearing change, congestion, nasal discharge or sore throat. EYES: No pain in eyes, discharge or change in vision. GASTROINTESTINAL: As per HPI. 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 , STATES BILATERAL INGUINAL HERNIA REPAIR. bowel resect Past Anesthesia/Blood Transfusion Reactions: No Reported Reaction Past Psychological History: No Psychological Hx Reported Smoking Status: Never smoker Past Alcohol Use History: Rare Additional Past Alcohol Use History / Comment(s): Patient reports that he would smoke cigars Past Drug Use History: None Reported - Past Family History Mother Family Medical History: No Reported History Medications and Allergies Home Medications Medication Instructions Recorded Confirmed Type Omeprazole [PriLOSEC] 40 mg PO DAILY 03/18/16 04/04/20 History Aspirin EC [Ecotrin Low Dose] 81 mg PO DAILY 07/29/16 04/04/20 History Folic Acid 1 mg PO DAILY 07/29/16 04/04/20 History Dicyclomine [Bentyl] 20 mg PO QID PRN 04/21/19 04/04/20 History Diphenox-Atrop 2.5-0.025 mg 2 tab PO QID PRN 04/21/19 04/04/20 History [Lomotil] Gabapentin [Neurontin] 600 mg PO BID 04/21/19 04/04/20 History Simvastatin [Zocor] 20 mg PO HS 04/21/19 04/04/20 History DULoxetine HCL [Cymbalta] 60 mg PO BID 04/04/20 04/04/20 History Fluticasone Nasal [place] [Flonase 2 spr EA NOSTRIL DAILY 04/04/20 04/04/20 History Nasal [place]] Magnesium Oxide [[place]] 500 mg PO DAILY 04/04/20 04/04/20 History Octreotide Acetate,Mi-Spheres 10 mg IM Q28D 04/04/20 04/04/20 History [SandoSTATIN [place]AR [place]] Octreotide Acetate,Mi-Spheres 30 mg IM Q28D 04/04/20 04/04/20 History [SandoSTATIN [place]AR [place]] Potassium Chloride ER [K-Dur 10] 10 meq PO DAILY 04/04/20 04/04/20 History Prevagen 1 tab PO DAILY 04/04/20 04/04/20 History QUEtiapine FUMARATE [QUEtiapine 200 mg PO HS 04/04/20 04/04/20 History FUMARATE ER] Mansoor-Forte 1mg 1 mg PO DAILY 04/04/20 04/04/20 History Ibuprofen [Motrin] 400 mg PO TID PRN #0 04/07/20 04/04/20 Rx Multivitamins, Thera [Multivitamin 1 each PO DAILY@1200 #0 tab 04/07/20 Rx (formulary)] Allergies Allergy/AdvReac Type Severity Reaction Status Date / Time No Known Allergies Allergy Verified 04/04/20 22:20 Physical Exam Vitals: Vital Signs Temp Pulse Resp BP Pulse Ox 04/07/20 12:38 97.9 F 86 18 153/83 95 04/07/20 08:00 80 16 04/07/20 05:44 97.7 F 04/07/20 03:30 83 159/84 99 04/06/20 21:00 98.0 F 80 16 136/90 100 Intake and Output 04/06/20 04/07/20 04/07/20 22:59 06:59 14:59 Intake Total 225 600 360 Output Total 450 200 Balance -225 600 160 Intake: Intake, IV Titration 225 600 Amount Sodium Chloride 0.9% 1, 225 600 000 ml @ 75 mls/hr IV . [id number] [facility] Rx#:[id number] Oral 360 Output: Urine 450 200 Other: Voiding Method Toilet Toilet Urinal Urinal # Voids 2 2 On physical examination, patient appears comfortable in no apparent distress. HEAD: Normocephalic, atraumatic. EYES: No scleral icterus. No conjunctival injection. MOUTH: No lesions, tongue midline. NECK: Trachea midline, no gross abnormalities. CHEST: Decreased air entry in all lung laboy. HEART: S1-S2 appreciated. ABDOMEN: Soft, mildly tender to deep palpation. Bowel sounds are positive. No organomegaly. No guarding or rigidity. EXTREMITIES: No pedal edema. SKIN: No rashes, no jaundice. NEUROLOGIC: Alert and oriented x3. No focal deficits. Results CBC & Chem 7: 04/08/20 07:58 04/08/20 07:58 Labs: Abnormal Lab Results - Last 24 Hours (Table) 04/07/20 04/07/20 04/07/20 Range/Units 06:14 06:14 06:19 RBC 2.77 L (4.30-5.90) m/uL Hgb 8.8 L (13.0-17.5) gm/dL Hct 26.6 L (39.0-53.0) % Retic Count 3.7 H (0.5-2.0) % Sodium 133 L (137-145) mmol/L Carbon Dioxide 20 L (22-30) mmol/L Glucose 100 H (74-99) mg/dL Calcium 8.2 L (8.4-10.2) mg/dL Microbiology - Last 24 Hours (Table) 04/05/20 16:39 Blood Culture - Preliminary Blood No Growth after [address] scan - abdomen: report reviewed (Computed tomography scan of the abdomen with no acute intra-abdominal process, atelectasis and nonobstructing renal calculi noted.) Assessment and Plan (1) Chronic diarrhea Narrative/Plan: 7-year-old male with multiple medical comorbidities including prior history of colon cancer in 2011 and resection at that time after which she has suffered f rom chronic diarrhea. He also required small bowel resection for obstruction in 2016. He has chronic diarrhea treated with Lomotil and dicyclomine for abdominal pain in the outpatient setting. Computed tomography scan on current presentation negative for any acute intra-abdominal process. Status: Acute Code(s): K52.9 - NONINFECTIVE GASTROENTERITIS AND COLITIS, UNSPECIFIED SNOMED Code(s): 576920733 (2) Abdominal pain Status: Acute Code(s): R10.9 - UNSPECIFIED ABDOMINAL PAIN SNOMED Code(s): 44306530 Plan: Supportive care Okay for diet Continue dicyclomine for abdominal pain, judicious use in an elderly patient due to sedative properties Okay for Lomotil use for treatment of diarrhea Can follow up in the outpatient setting if colonoscopy is desired, low symptoms of been chronic and likely secondary to prior bowel resections Thank you for allowing us to participate in the care of the patient
== END 2020-04-08 13:46 | disposition home health service (06) | DRG 640 ==
LOC: EC 19:20 → 5NMEDONC 22:17 → OBSVTOIN 04-06 10:30
PROVIDERS: ADMIT Family Medicine; ATTEND Family Medicine
DX: E86.0 Dehydration (principal); N17.0 Acute kidney failure with tubular necrosis; E78.5 Hyperlipidemia, unspecified; I10 Essential (primary) hypertension; I25.10 Atherosclerotic heart disease of native coronary artery without angina pectoris; K21.9 Gastro-esophageal reflux disease without esophagitis; M19.90 Unspecified osteoarthritis, unspecified site; D63.8 Anemia in other chronic diseases classified elsewhere; E87.2 Acidosis; N20.0 Calculus of kidney; R29.6 Repeated falls; K52.9 Noninfective gastroenteritis and colitis, unspecified; W18.30XA Fall on same level, unspecified, initial encounter; M54.9 Dorsalgia, unspecified; R26.9 Unspecified abnormalities of gait and mobility; Z11.59 Encounter for screening for other viral diseases; Z85.038 Personal history of other malignant neoplasm of large intestine; Z79.82 Long term (current) use of aspirin; Z79.899 Other long term (current) drug therapy; Z90.49 Acquired absence of other specified parts of digestive tract; Z85.46 Personal history of malignant neoplasm of prostate; Z85.828 Personal history of other malignant neoplasm of skin; Z95.1 Presence of aortocoronary bypass graft; Z98.890 Other specified postprocedural states; Z91.81 History of falling; Y92.019 Unspecified place in single-family (private) house as the place of occurrence of the external cause
CPT/HCPCS: 36415; 70450; 71045; 72125; 74176; 80048; 80053; 81003; 82607; 82728; 82746; 83540; 83550; 83735; 84484; 85025; 85045; 85610; 85730; 87040; 93005; 93306; 93880; 96360; 99285

== ENCOUNTER 2020-04-13 12:21 | Observation (INO) | payer MEDICARE, BC ==
[2020-04-13] MEDS ORDERED: SODIUM CHLORIDE 0.9% 1,000 ML IV STA ×2 (12:33)
--- NOTE | 2020-04-13 13:05 | ED ---
Syncope HPI - General Chief Complaint: Fall Stated Complaint: syncope/dizziness Time Seen by Provider: 04/13/20 12:24 Source: patient, EMS, RN notes reviewed, old records reviewed Mode of arrival: EMS Limitations: no limitations - History of Present Illness Initial Comments: This is an 79-year-old male DF for evaluation patient presents today for evalua tion regards to recurrent syncopal event. Patient states he got out of bed this morning and had a syncopal event fell to ground. Denying any pain no headache chest pain shortness breath or abdominal pain. Recent admission for persistent and recurrent sick abuse. No fevers no recent travel history no sick contacts. MD Complaint: loss of consciousness, collapsed -: hour(s) Prodromal Symptoms: none -: second(s) Witnessed: no Injuries Sustained Associated with Event: None Current Symptoms: back to baseline History: previous syncopal episode Context: getting out of bed Treatments Prior to Arrival: none - Related Data Home Medications Medication Instructions Recorded Confirmed Omeprazole [PriLOSEC] 40 mg PO DAILY 03/18/16 04/04/20 Aspirin EC [Ecotrin Low Dose] 81 mg PO DAILY 07/29/16 04/04/20 Folic Acid 1 mg PO DAILY 07/29/16 04/04/20 Dicyclomine [Bentyl] 20 mg PO QID PRN 04/21/19 04/04/20 Diphenox-Atrop 2.5-0.025 mg 2 tab PO QID PRN 04/21/19 04/04/20 [Lomotil] Gabapentin [Neurontin] 600 mg PO BID 04/21/19 04/04/20 Simvastatin [Zocor] 20 mg PO HS 04/21/19 04/04/20 DULoxetine HCL [Cymbalta] 60 mg PO BID 04/04/20 04/04/20 Fluticasone Nasal [place] [Flonase 2 spr EA NOSTRIL DAILY 04/04/20 04/04/20 Nasal [place]] Magnesium Oxide [[place]] 500 mg PO DAILY 04/04/20 04/04/20 Octreotide Acetate,Mi-Spheres 10 mg IM Q28D 04/04/20 04/04/20 [SandoSTATIN [place]AR [place]] Octreotide Acetate,Mi-Spheres 30 mg IM Q28D 04/04/20 04/04/20 [SandoSTATIN [place]] Potassium Chloride ER [K-Dur 10] 10 meq PO DAILY 04/04/20 04/04/20 Prevagen 1 tab PO DAILY 04/04/20 04/04/20 QUEtiapine FUMARATE [QUEtiapine 200 mg PO HS 04/04/20 04/04/20 FUMARATE ER] Mansoor-Forte 1mg 1 mg PO DAILY 04/04/20 04/04/20 Previous Rx's Medication Instructions Recorded Ibuprofen [Motrin] 400 mg PO TID PRN #0 04/07/20 Multivitamins, Thera [Multivitamin 1 each PO DAILY@1200 #0 tab 04/07/20 (formulary)] Allergies Allergy/AdvReac Type Severity Reaction Status Date / Time No Known Allergies Allergy Verified 04/04/20 22:20 Review of Systems ROS Statement: Those systems with pertinent positive or pertinent negative responses have been documented in the HPI. ROS Other: All systems not noted in ROS Statement are negative. 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 , STATES BILATERAL INGUINAL HERNIA REPAIR. bowel resect Past Anesthesia/Blood Transfusion Reactions: No Reported Reaction Past Psychological History: No Psychological Hx Reported Smoking Status: Never smoker Past Alcohol Use History: None Reported Past Drug Use History: None Reported - Past Family History Mother Family Medical History: No Reported History General Exam Limitations: no limitations General appearance: alert, in no apparent distress Head exam: Present: atraumatic, normocephalic, normal inspection Eye exam: Present: normal appearance, PERRL, EOMI. Absent: scleral icterus, conjunctival injection, periorbital swelling ENT exam: Present: normal exam, mucous membranes moist Neck exam: Present: normal inspection. Absent: tenderness, meningismus, lym phadenopathy Respiratory exam: Present: normal lung sounds bilaterally. Absent: respiratory distress, wheezes, rales, rhonchi, stridor Cardiovascular Exam: Present: regular rate, normal rhythm, normal heart sounds. Absent: systolic murmur, diastolic murmur, rubs, gallop, clicks GI/Abdominal exam: Present: soft, normal bowel sounds. Absent: distended, tenderness, guarding, rebound, rigid Extremities exam: Present: normal inspection, full ROM, normal capillary refill. Absent: tenderness, pedal edema, joint swelling, calf tenderness Back exam: Present: normal inspection Neurological exam: Present: alert, oriented X3, CN II-XII intact Psychiatric exam: Present: normal affect, normal mood Skin exam: Present: warm, dry, intact, normal color. Absent: rash Course Vital Signs 04/13/20 12:25 Temperature 97.5 F L Pulse Rate 100 Respiratory 18 Rate Blood Pressure 102/75 O2 Sat by Pulse 99 Oximetry - Reevaluation(s) Reevaluation #1: 04/13/20 13:04 Medical records reviewed including prior hospitalization Reevaluation #2: 04/13/20 14:02 Patient has no recurrent syncope here in the ER no complaints - Consultations Consultation #1: Spoke with Dr. Velásquez who agrees to admit this patient yesterday EKG Findings - EKG Comments: EKG Findings:: EKG sinus rhythm rate of 98 ID 160 QRS 74 QTc 411 Medical Decision Making - Medical Decision Making Female with syncope recurrent syncope here in the ER. Patient [place], admitted to rule out PE and have cardiology to evaluate possible causes of syncope history of cardiac disease likely arrhythmia - Lab Data Result diagrams: 04/13/20 13:05 04/13/20 13:05 Lab Results 04/13/20 04/13/20 04/13/20 Range/Units 13:05 13:05 13:05 WBC 6.2 (3.8-10.6) k/uL RBC 3.24 L (4.30-5.90) m/uL Hgb 10.5 L (13.0-17.5) gm/dL Hct 32.8 L (39.0-53.0) % MCV 101.4 H D (80.0-100.0) fL MCH 32.6 (25.0-35.0) pg MCHC 32.1 (31.0-37.0) g/dL RDW 14.6 (11.5-15.5) % Plt Count 252 (150-450) k/uL Neutrophils % 77 % Lymphocytes % 13 % Monocytes % 7 % Eosinophils % 2 % Basophils % 0 % Neutrophils # 4.7 (1.3-7.7) k/uL Lymphocytes # 0.8 L (1.0-4.8) k/uL Monocytes # 0.4 (0-1.0) k/uL Eosinophils # 0.1 (0-0.7) k/uL Basophils # 0.0 (0-0.2) k/uL Hypochromasia Slight Macrocytosis Slight PT 10.1 (9.0-12.0) sec INR 1.0 (<1.2) APTT 25.5 (22.0-30.0) sec D-Dimer 2.43 H (<0.60) mg/L FEU Sodium 138 (137-145) mmol/L Potassium 5.6 H (3.5-5.1) mmol/L Chloride 109 H (98-107) mmol/L Carbon Dioxide 20 L (22-30) mmol/L Anion Gap 9 mmol/L BUN 27 H (9-20) mg/dL Creatinine 1.61 H (0.66-1.25) mg/dL Est GFR (CKD-EPI)AfAm 46 (>60 ml/min/1.73 sqM) Est GFR (CKD-EPI)NonAf 40 (>60 ml/min/1.73 sqM) Glucose 113 H (74-99) mg/dL Calcium 9.5 (8.4-10.2) mg/dL Phosphorus 4.2 (2.5-4.5) mg/dL Magnesium 1.8 (1.6-2.3) mg/dL Total Bilirubin 0.8 (0.2-1.3) mg/dL AST 29 (17-59) U/L ALT 19 (4-49) U/L Alkaline Phosphatase 73 (38-126) U/L Creatine Kinase 66 (55-170) U/L Troponin I (0.000-0.034) ng/mL NT-Pro-B Natriuret Pep pg/mL Total Protein 6.5 (6.3-8.2) g/dL Albumin 3.8 (3.5-5.0) g/dL Urine Color Urine Appearance (Clear) Urine pH (5.0-8.0) Ur Specific [place] (1.001-1.035) Urine Protein (Negative) Urine Glucose (UA) (Negative) Urine Ketones (Negative) Urine Blood (Negative) Urine Nitrite (Negative) Urine Bilirubin (Negative) Urine Urobilinogen (<2.0) mg/dL Ur Leukocyte Esterase (Negative) 04/13/20 04/13/20 04/13/20 Range/Units 13:05 13:05 13:12 WBC (3.8-10.6) k/uL RBC (4.30-5.90) m/uL Hgb (13.0-17.5) gm/dL Hct (39.0-53.0) % MCV (80.0-100.0) fL MCH (25.0-35.0) pg MCHC (31.0-37.0) g/dL RDW (11.5-15.5) % Plt Count (150-450) k/uL Neutrophils % % Lymphocytes % % Monocytes % % Eosinophils % % Basophils % % Neutrophils # (1.3-7.7) k/uL Lymphocytes # (1.0-4.8) k/uL Monocytes # (0-1.0) k/uL Eosinophils # (0-0.7) k/uL Basophils # (0-0.2) k/uL Hypochromasia Macrocytosis PT (9.0-12.0) sec INR (<1.2) APTT (22.0-30.0) sec D-Dimer (<0.60) mg/L FEU Sodium (137-145) mmol/L Potassium (3.5-5.1) mmol/L Chloride (98-107) mmol/L Carbon Dioxide (22-30) mmol/L Anion Gap mmol/L BUN (9-20) mg/dL Creatinine (0.66-1.25) mg/dL Est GFR (CKD-EPI)AfAm (>60 ml/min/1.73 sqM) Est GFR (CKD-EPI)NonAf (>60 ml/min/1.73 sqM) Glucose (74-99) mg/dL Calcium (8.4-10.2) mg/dL Phosphorus (2.5-4.5) mg/dL Magnesium (1.6-2.3) mg/dL Total Bilirubin (0.2-1.3) mg/dL AST (17-59) U/L ALT (4-49) U/L Alkaline Phosphatase (38-126) U/L Creatine Kinase (55-170) U/L Troponin I <0.012 (0.000-0.034) ng/mL NT-Pro-B Natriuret Pep 562 pg/mL Total Protein (6.3-8.2) g/dL Albumin (3.5-5.0) g/dL Urine Color Yellow Urine Appearance Clear (Clear) Urine pH 5.5 (5.0-8.0) Ur Specific [place] 1.025 (1.001-1.035) Urine Protein Trace H (Negative) Urine Glucose (UA) Negative (Negative) Urine Ketones Trace H (Negative) Urine Blood Negative (Negative) Urine Nitrite Negative (Negative) Urine Bilirubin Negative (Negative) Urine Urobilinogen <2.0 (<2.0) mg/dL Ur Leukocyte Esterase Negative (Negative) - Radiology Data Radiology results: report reviewed (Chest x-ray is negative for acute dis easeMedicine scan is pending for PE), image reviewed Critical Care Time Critical Care Time: Yes Total Critical Care Time: 31 Disposition Clinical Impression: Syncope Disposition: ADMITTED IP TO THIS [facility] Condition: Fair Is patient prescribed a controlled substance at d/c from ED?: No Referrals: Gail Tidwell DO [Primary Care Provider] - 1-2 days
[2020-04-13 13:20] LABS: Appearance,Urine Clear (Clear); Bilirubin,Urine Negative (Negative); Blood,Urine Negative (Negative); Color,Urine Yellow; Glucose,Urine (UA) Negative (Negative); Ketones,Urine Trace (Negative); Leukocyte Esterase,Urine Negative (Negative); Nitrite,Urine Negative (Negative); PH, Urine 5.5 (5.0-8.0); Protein,Urine Trace (Negative); Specific Gravity,Urine 1.025 (1.001-1.035); Urobilinogen,Urine <2.0 mg/dL (<2.0)
[2020-04-13 13:21] LABS: Albumin 3.8 g/dL (3.5-5.0); Calcium 9.5 mg/dL (8.4-10.2); Magnesium 1.8 mg/dL (1.6-2.3); Phosphorus 4.2 mg/dL (2.5-4.5); Potassium 5.6 mmol/L (3.5-5.1); Total Bilirubin 0.8 mg/dL (0.2-1.3); Total Protein 6.5 g/dL (6.3-8.2)
[2020-04-13 13:26] LABS: Basophils % (A) 0 %; Eosinophils # (A) 0.1 k/uL (0-0.7); Eosinophils % (A) 2 %; HCT 32.8 % (39.0-53.0); HGB 10.5 gm/dL (13.0-17.5); Hypochromasia Slight; Lymphocytes # (A) 0.8 k/uL (1.0-4.8); Lymphocytes % (A) 13 %; MCH 32.6 pg (25.0-35.0); MCHC 32.1 g/dL (31.0-37.0); Macrocytosis Slight; Mean Platelet Volume 6.9; Monocytes # (A) 0.4 k/uL (0-1.0); Monocytes % (A) 7 %; Neutrophils # (A) 4.7 k/uL (1.3-7.7); Neutrophils % (A) 77 %; Platelet Count 252 k/uL (150-450); RBC 3.24 m/uL (4.30-5.90); RDW 14.6 % (11.5-15.5); WBC 6.2 k/uL (3.8-10.6)
[2020-04-13 13:30] LABS: MCV 101.4 fL (80.0-100.0)
[2020-04-13 13:31] LABS: Partial Thromboplastin Time 25.5 sec (22.0-30.0); Prothrombin Time 10.1 sec (9.0-12.0)
[2020-04-13 13:43] LABS: D-Dimer 2.43 mg/L FEU (<0.60)
[2020-04-13] MEDS ORDERED: HEPARIN SODIUM,PORCINE 5,000 UNIT/ML 1 ML VIAL IV ONE (14:00)
[2020-04-13] MEDS ORDERED: ASPIRIN 81 MG PO STA (14:00)
[2020-04-13] MEDS ORDERED: NITROGLYCERIN SL TABS 0.4 MG TAB SUBLINGUAL PRN (14:00)
[2020-04-13] MEDS ORDERED: HEPARIN SODIUM,PORCINE 5,000 UNIT/ML 1 ML VIAL IV PRN (14:00)
[2020-04-13] MEDS ORDERED: HEPARIN SOD,PORK IN 0.45% NACL 25,000 UNIT in 0.45% NACL 1 250ML.BAG IV SCH (14:00)
--- NOTE | 2020-04-13 15:47 | XR ---
EXAMINATION TYPE: XR chest 2V DATE OF EXAM: 04/13/2020 COMPARISON: 04/04/2020 HISTORY: Syncope TECHNIQUE: FINDINGS: Heart and mediastinum are normal. Lungs are clear. Diaphragm is normal. Bony thorax is inta ct. There are sternal wires. There are chest leads. There is some spurring in the thoracic spine. IMPRESSION: No active cardiopulmonary disease. Normal heart. No change.
--- NOTE | 2020-04-13 16:51 | NM ---
EXAMINATION TYPE: NM pul vent and perfuse DATE OF EXAM: 04/13/2020 COMPARISON: None HISTORY: Syncope TECHNIQUE: Utilizing inhalation of 38.6 mCi Tc 99m DTPA aerosol and intravenous injection of 4.68 mC i of Tc 99m MAA, ventilation and perfusion images are acquired post injection in multiple projections . FINDINGS: Normal radiotracer distribution is noted in the lungs. There is no evidence of mismatched defects. IMPRESSION: There is slight decreased perfusion and ventilation of the upper lung laboy. There is no ventilation /perfusion mismatch. There is no segmental or subsegmental type perfusion focal defect. IMPRESSION: There is mild matching upper lobe defect consistent with airway disease. There is a low probability o f pulmonary embolism.
[2020-04-13] MEDS ORDERED: ACETAMINOPHEN TAB 325 MG TAB PO PRN (17:58)
[2020-04-13] MEDS ORDERED: SODIUM POLYSTYRENE SULFONATE 15 GM/60 ML BOTTLE PO ONE (18:15)
[2020-04-13] MEDS: PANTOPRAZOLE 40 MG TABLET PO SCH (18:48)
[2020-04-13] MEDS: DULoxetine HCL 60 MG CAPSULE.DR PO SCH (20:57)
[2020-04-13] MEDS: QUEtiapine 100 MG TAB PO SCH (20:57)
[2020-04-13] MEDS ORDERED: ATORVASTATIN 10 MG TAB PO SCH (21:00)
--- NOTE | 2020-04-13 23:33 | HP ---
HISTORY AND PHYSICAL I am covering for Dr. Luciano. DATE OF SERVICE: 04/13/2020 CHIEF COMPLAINT: Syncope. HISTORY OF PRESENT ILLNESS: This 79-year-old gentleman with a past medical history of CAD, history of GERD, hypertension, hyperlipidemia, history of DJD, history of recurrent syncope because of orthostatic hypotension, CAD, CABG being followed by Dr. Gail Tidwell in the outpatient setting was complaining of recurrent syncopal event. The patient felt dizzy when getting out of bed and patient fell to the ground. The patient did not have any headache. No history of any seizures. No chest pain or palpitation. The patient came to [facility] and admitted for further evaluation and treatment. Initial evaluation showed hemoglobin 10.5, potassium 5.6. Creatinine is elevated 1.61. The baseline creatinine was around . Acute renal failure is suspected. The patient will be closely monitored. There is no history of fever, rigors. No history of any headache, seizures at this time. D-dimer is 2.43. A V/Q scan has been requested as well as 2D echo. Cardiology has been consulted. PAST MEDICAL HISTORY: History of CAD, history of GERD, hypertension, hyperlipidemia, history of DJD, history of prostate cancer, history of CAD, CABG. MEDICATIONS: Medications are home medications are reviewed and include: 1. Zocor. 2. Seroquel. 3. Prevagen. 4. K-Dur 10 mEq. 5. Omeprazole. 6. Octreotide. 7. Multivitamins. 8. Magnesium oxide. 9. Motrin. 10.Neurontin. 11.Folic acid. 12.Flonase nasal spray. 13.Lomotil. 14.Bentyl. 15.Cymbalta. 16.Ecotrin. ALLERGIES: None. FAMILY HISTORY: No history of heart disease or strokes in the family. SOCIAL HISTORY: No history of smoking. Occasional alcohol intake. REVIEW OF SYSTEMS: ENT: Diminished hearing and diminished vision. CARDIOVASCULAR SYSTEM: No angina. RESPIRATORY SYSTEM: As mentioned earlier. GI: As mentioned earlier. : No dysuria. NERVOUS SYSTEM: As mentioned earlier. ALLERGY/IMMUNOLOGY: As mentioned earlier. MUSCULOSKELETAL: As mentioned earlier. HEMATOLOGY: No history of any anemia. ENDOCRINE: As mentioned earlier. CONSTITUTIONAL: As mentioned earlier. DERMATOLOGY: Negative. RHEUMATOLOGY: Negative. PSYCHIATRY: As mentioned earlier. PHYSICAL EXAMINATION: The patient is alert and oriented x3. Pulse is Blood pressure 106/71, respiration 18, temperature 97.5, pulse ox 98% on room air. HEENT: Conjunctivae normal. NECK: No jugular venous distention. CARDIOVASCULAR: S1, S2 muffled. RESPIRATORY: Breath sounds are diminished at the bases. A few scattered rhonchi and crackles. ABDOMEN: Soft, nontender. No mass palpable. LEGS: No edema, no swelling. NERVOUS SYSTEM: Higher function as mentioned. Moves all 4 limbs. No focal deficits. LYMPHATICS: No lymphadenopathy of the neck, axillae or groin. SKIN: No ulcer, rash or bleeding. JOINTS: No active deforming arthropathy. LABS: WBC 6.2, hemoglobin 10.5. Sodium 138, potassium 5.6, CO2 is 20. Creatinine 1.6. ASSESSMENT: 1. Recurrent syncope secondary to possibly orthostatic hypotension. 2. Dehydration with acute renal failure with prerenal acute tubular necrosis, present on admission. 3. Hyperkalemia secondary to renal failure. 4. Elevated D-dimer, rule out pulmonary embolism. 5. Anemia, normocytic anemia of chronic disease. 6. History of coronary artery disease. 7. History of gastroesophageal reflux disease. 8. Hypertension. 9. Hyperlipidemia. 10.History of degenerative joint disease. 11.History of prostate and colon cancer. 12.History of bowel resection. 13.History of coronary artery disease, coronary artery bypass grafting. 14.History of hernia repair. 15.History of prostate cancer. RECOMMENDATIONS AND DISCUSSION: This 79-year-old gentleman who presented with multiple complex medical issues, we will monitor the patient closely. Continue the current medications. Continue symptomatic treatment. Will continue the current medications. IV heparin has been initiated. I would also recommend IV fluids. Monitor blood pressure closely. I would also recommend monitor the potassium and V/Q scan because of the increased elevated D-dimer. Empirically, heparin is initiated, which could be stopped if the V/Q is negative. Other than that, resume the rest of medications after. Prognosis guarded because of multiple complex medical issues. Discussed with patient, understands. Further recommendations to follow. Dr. Luciano will follow. MMODL / IJN: [id number] / MTDD
[2020-04-14 06:46] LABS: Basophils % (A) 0 %; Eosinophils # (A) 0.2 k/uL (0-0.7); Eosinophils % (A) 3 %; HCT 25.6 % (39.0-53.0); Lymphocytes # (A) 1.3 k/uL (1.0-4.8); Lymphocytes % (A) 27 %; MCH 31.6 pg (25.0-35.0); MCHC 31.5 g/dL (31.0-37.0); MCV 100.2 fL (80.0-100.0); Macrocytosis Slight; Mean Platelet Volume 7.1; Monocytes # (A) 0.3 k/uL (0-1.0); Monocytes % (A) 6 %; Neutrophils % (A) 62 %; Platelet Count 195 k/uL (150-450); RBC 2.55 m/uL (4.30-5.90); RDW 14.5 % (11.5-15.5); WBC 4.9 k/uL (3.8-10.6)
[2020-04-14 06:50] LABS: Calcium 7.7 mg/dL (8.4-10.2); HGB 8.1 gm/dL (13.0-17.5); Potassium 4.9 mmol/L (3.5-5.1)
[2020-04-14 07:32] VITALS: BP 122/76; PULSE 77; RESP 16; TEMP 98.2
--- NOTE | 2020-04-14 08:30 | P.CRDCN ---
History of Present Illness Consult date: 04/14/20 Requesting physician: Kenneth Luciano Reason for Consult (text): syncope Chief complaint: syncope History of present illness: This is a pleasant 79-year-old gentleman who follows with Dr. Gould in the office. In the past medical history of coronary artery disease, prior bypass surgery, hypertension, hyperlipidemia, severe arthritis, colon cancer, status post bowel resection, chronic diarrhea and cholecystectomy. Presented to the hospital recently with a syncopal episode at home felt to be secondary to orthostatic hypotension. Echocardiogram at that time showed normal LV systolic function with no significant valvular abnormalities and no wall motion abnormalities. Carotid duplex study showed no evidence of hemodynamically significant stenosis. Computed tomography scan of the brain showed cerebral atrophy, no acute intracranial abnormality, minor degenerative changes in the cervical spine, no fracture, brain unchanged. EXAM. Presents again to the emergency department this admission with complaints of the same. He stood up to walk into his kitchen and had a brief syncopal episode. Denies loss of bowel or bladder control. No complaints of chest discomfort, palpitations, shortness of breath, edema, orthopnea or PND. Does complain of dizziness/lightheadedness upon standing. According to the patient, he has had 4 or 5 syncopal episodes this year with other episodes of near syncope. Labs on admission showed hemoglobin of 10.5, d-dimer 2.43, potassium 5.6, BUN 27, creatinine 1.61. He was initially initiated on IV heparin which subsequently been discontinued. Patient underwent VQ scan which showed low probability for PE. Repeat labs this morning showed hemoglobin of 8.1, potassium 4.9, BUN 19 creatinine 1.02. Troponins have been negative 3. Pressure was initially borderline low on admission at 102/75. Subsequent blood pressure is elevated at 183/95, 159/92, 155/90 and 149/92. 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 , STATES BILATERAL INGUINAL HERNIA REPAIR. bowel resect Past Anesthesia/Blood Transfusion Reactions: No Reported Reaction Past Psychological History: No Psychological Hx Reported Smoking Status: Never smoker Past Alcohol Use History: None Reported Additional Past Alcohol Use History / Comment(s): Patient reports that he would smoke cigars Past Drug Use History: None Reported - Past Family History Mother Family Medical History: No Reported History Medications and Allergies Home Medications Medication Instructions Recorded Confirmed Type Omeprazole [PriLOSEC] 40 mg PO DAILY 03/18/16 04/13/20 History Aspirin EC [Ecotrin Low Dose] 81 mg PO DAILY 07/29/16 04/13/20 History Folic Acid 1 mg PO DAILY 07/29/16 04/13/20 History Dicyclomine [Bentyl] 20 mg PO QID PRN 04/21/19 04/13/20 History Diphenox-Atrop 2.5-0.025 mg 2 tab PO QID PRN 04/21/19 04/13/20 History [Lomotil] Gabapentin [Neurontin] 600 mg PO BID 04/21/19 04/13/20 History Simvastatin [Zocor] 20 mg PO HS 04/21/19 04/13/20 History DULoxetine HCL [Cymbalta] 60 mg PO BID 04/04/20 04/13/20 History Fluticasone Nasal [place] [Flonase 2 spr EA NOSTRIL DAILY 04/04/20 04/13/20 History Nasal [place]] Magnesium Oxide [Carrasquillo] 500 mg PO DAILY 04/04/20 04/13/20 History Octreotide Acetate,Mi-Spheres 10 mg IM Q28D 04/04/20 04/13/20 History [SandoSTATIN LAR Depot] Octreotide Acetate,Mi-Spheres 30 mg IM Q28D 04/04/20 04/13/20 History [SandoSTATIN [place]] Potassium Chloride ER [K-Dur 10] 10 meq PO DAILY 04/04/20 04/13/20 History Prevagen 1 tab PO DAILY 04/04/20 04/13/20 History QUEtiapine FUMARATE [QUEtiapine 200 mg PO HS 04/04/20 04/13/20 History FUMARATE ER] Mansoor-Forte 1mg 1 mg PO DAILY 04/04/20 04/13/20 History Ibuprofen [Motrin] 400 mg PO TID PRN #0 04/07/20 04/13/20 Rx Multivitamins, Thera [Multivitamin 1 each PO DAILY@1200 #0 tab 04/07/20 04/13/20 Rx (formulary)] Allergies Allergy/AdvReac Type Severity Reaction Status Date / Time No Known Allergies Allergy Verified 04/13/20 16:57 Physical Exam Vitals: Vital Signs Temp Pulse Pulse Resp BP BP Pulse Ox 04/14/20 07:32 98.2 F 77 16 122/76 96 04/14/20 04:00 98 F 79 18 149/92 97 04/14/20 03:23 74 16 04/14/20 00:00 98.1 F 79 17 155/90 97 04/13/20 20:00 98 F 81 18 159/92 95 04/13/20 17:09 97.4 F L 88 16 183/95 98 04/13/20 16:00 81 18 106/71 98 04/13/20 14:00 90 18 106/71 98 04/13/20 13:32 18 04/13/20 12:32 18 04/13/20 12:25 97.5 F L 100 18 102/75 99 Intake and Output 04/13/20 04/14/20 04/14/20 22:59 06:59 14:59 Intake Total 960 0 Balance 960 0 Intake: Oral 960 0 Other: Voiding Method Toilet Toilet # Voids 1 Weight 65.771 kg PHYSICAL EXAMINATION: This is a 79-year-old male in no apparent distress at the time of my examination. VITAL SIGNS: Blood pressure 122/76, heart rate 77, respirations 16, temp 98.2. Patient is 96% on room air. HEENT: Head is atraumatic, normocephalic. Pupils are equal, round. Sclerae anicteric. Conjunctivae are clear. Mucous membranes of the mouth are moist. Neck is supple. There is no elevated jugular venous pressure. No carotid bruit is heard. CHEST EXAMINATION: Clear to auscultation bilaterally. No wheezes rales or rhonchi. Respirations even and nonlabored. HEART EXAMINATION: Heart regular, positive S1 and S2. No S3. No S4. No clicks, rubs or murmurs. ABDOMEN: Soft, mild tenderness upon palpation. Bowel sounds are heard. No organomegaly noted. EXTREMITIES: 2+ peripheral pulses with no evidence of peripheral edema and no calf tenderness noted. NEUROLOGIC EXAMINATION: Patient is awake, alert and oriented x3. Results 04/14/20 05:58 04/14/20 05:58 Cardiac Enzymes 04/13/20 04/13/20 04/13/20 Range/Units 13:05 13:05 17:21 AST 29 (17-59) U/L Troponin I <0.012 <0.012 (0.000-0.034) ng/mL 04/13/20 Range/Units 20:07 AST (17-59) U/L Troponin I <0.012 (0.000-0.034) ng/mL Coagulation 04/13/20 04/13/20 Range/Units 13:05 20:07 PT 10.1 (9.0-12.0) sec APTT 25.5 157.5 H* (22.0-30.0) sec Lipids 04/14/20 Range/Units 05:58 Triglycerides 122 (<150) mg/dL Cholesterol 88 (<200) mg/dL HDL Cholesterol 37 L (40-60) mg/dL CBC 04/13/20 04/14/20 Range/Units 13:05 05:58 WBC 6.2 4.9 (3.8-10.6) k/uL RBC 3.24 L 2.55 L (4.30-5.90) m/uL Hgb 10.5 L 8.1 L D (13.0-17.5) gm/dL Hct 32.8 L 25.6 L (39.0-53.0) % Plt Count 252 195 (150-450) k/uL Comprehensive Metabolic Panel 04/13/20 04/14/20 Range/Units 13:05 05:58 Sodium 138 136 L (137-145) mmol/L Potassium 5.6 H 4.9 (3.5-5.1) mmol/L Chloride 109 H 113 H (98-107) mmol/L Carbon Dioxide 20 L 19 L (22-30) mmol/L BUN 27 H 19 (9-20) mg/dL Creatinine 1.61 H 1.02 (0.66-1.25) mg/dL Glucose 113 H 87 (74-99) mg/dL Calcium 9.5 7.7 L (8.4-10.2) mg/dL AST 29 (17-59) U/L ALT 19 (4-49) U/L Alkaline Phosphatase 73 (38-126) U/L Total Protein 6.5 (6.3-8.2) g/dL Albumin 3.8 (3.5-5.0) g/dL Current Medications Generic Name Dose Route Start Last Admin Trade Name Freq PRN Reason Stop Dose Admin Acetaminophen 650 mg 04/13/20 17:58 Tylenol Tab PO Q6HR PRN Fever and/ or Pain Aspirin 81 mg 04/14/20 09:00 Aspirin PO DAILY [facility] Atorvastatin Calcium 10 mg 04/13/20 21:00 04/13/20 20:57 Lipitor PO 10 mg HS MYLA Administration Duloxetine HCl 60 mg 04/13/20 21:00 04/13/20 20:57 Cymbalta PO 60 mg BID MYLA Administration Fluticasone Propionate 2 spray 04/14/20 09:00 Flonase Nasal [place] EA NOSTRIL DAILY [facility] Folic Acid 1 mg 04/14/20 09:00 Folic Acid PO DAILY [facility] Magnesium Oxide 400 mg 04/14/20 09:00 Mag-Ox PO DAILY [facility] Multivitamins 1 each 04/14/20 12:00 Theragran PO DAILY@1200 [facility] Nitroglycerin 0.4 mg 04/13/20 14:00 Nitrostat SUBLINGUAL Q5M PRN Chest Pain Pantoprazole Sodium 40 mg 04/13/20 18:15 04/13/20 18:48 Protonix PO 40 mg [id number] [facility] Administration Quetiapine Fumarate 100 mg 04/13/20 21:00 04/13/20 20:57 Seroquel PO 100 mg BID MYLA Administration Intake and Output 04/13/20 04/14/20 04/14/20 22:59 06:59 14:59 Intake Total 960 0 Balance 960 0 Intake: Oral 960 0 Other: Voiding Method Toilet Toilet # Voids 1 Weight 65.771 kg 04/14/20 05:58 04/14/20 05:58 EKG Interpretations (text) Normal sinus rhythm Assessment and Plan Assessment: #1 syncope, likely secondary to orthostatic hypotension as a result of dehydration #2 acute kidney injury secondary to dehydration #3 coronary artery disease, status post CABG #4 hyperlipidemia #5 chronic diarrhea #6 colon cancer status post colon resection Plan: From pharmacy student perspective it appears syncope is related to orthostatic hypotension as a result of dehydration. VQ scan showed low probability of a PE. No evidence of arrhythmia. Assess orthostatic blood pressures. Patient was advised adequate fluid intake. From our standpoint the patient may be discharged home and follow-up with Dr. Gould in the office. RADIOLOGY CLERK note has been reviewed, I agree with a documented findings and plan of care. Patient was seen and examined.
[2020-04-14] MEDS ORDERED: [UNRECOGNIZED DRUG - OTHER] PO SCH (09:00)
[2020-04-14] MEDS ORDERED: FOLIC ACID 1 MG TAB PO SCH (09:00)
[2020-04-14] MEDS ORDERED: ASPIRIN 325 MG TAB PO SCH (09:00)
[2020-04-14] MEDS ORDERED: FLUTICASONE 50MCG/SPRAY NASAL 16GM EA NOSTRIL SCH (09:00)
[2020-04-14] MEDS ORDERED: MAGNESIUM OXIDE 400 MG TAB PO SCH (09:00)
[2020-04-14] MEDS ORDERED: ASPIRIN 81 MG PO SCH (09:00)
[2020-04-14] MEDS: PANTOPRAZOLE 40 MG TABLET PO SCH (09:03)
[2020-04-14] MEDS: DULoxetine HCL 60 MG CAPSULE.DR PO SCH (09:03)
[2020-04-14] MEDS: QUEtiapine 100 MG TAB PO SCH (09:06)
[2020-04-14] MEDS ORDERED: MULTIVITAMINS, THERA 1 EACH TAB PO SCH (12:00)
--- NOTE | 2020-04-14 23:01 | P.DS ---
Providers Date of admission: 04/13/20 14:27 Attending physician: Kenneth Luciano MD Consults: 04/13/20 14:00 Consult Physician Urgent Consulting Provider: Kristy Hong Consult Reason/Comments: syncope Do you want consulting provider notified?: Yes Primary care physician: Gail Tidwell [facility] Course: Reinier Bajwa is a 79-year-old M with hx coronary artery disease, prior bypass surgery, hypertension, hyperlipidemia, severe arthritis, colon cancer, status post bowel resection, chronic diarrhea and cholecystectomy. Presented to the hospital recently with a syncopal episode at home felt to be secondary to orthostatic hypotension. Echocardiogram at that time showed normal LV systolic function with no significant valvular abnormalities and no wall motion abnormalities. Carotid duplex study showed no evidence of hemodynamically significant stenosis. Computed tomography scan of the brain showed cerebral atrophy, no acute intracranial abnormality, minor degenerative changes in the cervical spine, no fracture, brain unchanged. He was treated with IVF hydration and recommended Subacute rehab but declined. Pt went home and states he had home PT but otherwise had not been moving much. Pt presented to the emergency department this admission with complaints of the same. He stood up to walk into his kitchen and had a brief syncopal episode. Denies loss of bowel or bladder control. No complaints of chest discomfort, palpitations, shortness of breath, edema, orthopnea or PND. Does complain of dizziness/lightheadedness upon standing. According to the patient, he has had 4 or 5 syncopal episodes this year with other episodes of near syncope. Labs on admission showed hemoglobin of 10.5, d-dimer 2.43, potassium 5.6, BUN 27, creatinine 1.61, (baseline 0.8). Pt was admitted and given IV fluids, his subsequently improved and was seen by Cardiology and clerared. He was again recommended to work with PT and discuss possible disposition to rehab but he again declines and asked to be discharged home. Pt is recommended to follow up with his PCP after discharge. Exam: General: well nourished, well developed, NAD. Vitals reviewed HENT: normocephalic, mucus membranes moist Lungs: normal respiratory effort, no wheezes or rales CV: Regular rate and rhythm, no murmur. Peripheral pulses 2+ Abdomen: soft, nondistended, no organomegaly Skin: warm and dry. Neuro: A&Ox3, normal mood and affect Patient Condition at Discharge: Fair Plan - Discharge Summary Discharge Rx Participant: No New Discharge Prescriptions: Continue Omeprazole [PriLOSEC] 40 mg PO DAILY Folic Acid 1 mg PO DAILY Aspirin EC [Ecotrin Low Dose] 81 mg PO DAILY Gabapentin [Neurontin] 600 mg PO BID Diphenox-Atrop 2.5-0.025 mg [Lomotil] 2 tab PO QID PRN PRN Reason: Diarrhea Dicyclomine [Bentyl] 20 mg PO QID PRN PRN Reason: IBS Simvastatin [Zocor] 20 mg PO HS QUEtiapine FUMARATE [QUEtiapine FUMARATE ER] 200 mg PO HS Mansoor-Forte 1mg 1 mg PO DAILY DULoxetine HCL [Cymbalta] 60 mg PO BID Magnesium Oxide [Carrasquillo] 500 mg PO DAILY Potassium Chloride ER [K-Dur 10] 10 meq PO DAILY Fluticasone Nasal [place] [Flonase Nasal [place]] 2 spr EA NOSTRIL DAILY Prevagen 1 tab PO DAILY Octreotide Acetate,Mi-Spheres [SandoSTATIN [place]] 10 mg IM Q28D Octreotide Acetate,Mi-Spheres [SandoSTATIN [place]] 30 mg IM Q28D Multivitamins, Thera [Multivitamin (formulary)] 1 each PO DAILY@1200 #0 tab Ibuprofen [Motrin] 400 mg PO TID PRN #0 PRN Reason: Pain Discharge Medication List Omeprazole [PriLOSEC] 40 mg PO DAILY 03/18/16 [History] Aspirin EC [Ecotrin Low Dose] 81 mg PO DAILY 07/29/16 [History] Folic Acid 1 mg PO DAILY 07/29/16 [History] Dicyclomine [Bentyl] 20 mg PO QID PRN 04/21/19 [History] Diphenox-Atrop 2.5-0.025 mg [Lomotil] 2 tab PO QID PRN 04/21/19 [History] Gabapentin [Neurontin] 600 mg PO BID 04/21/19 [History] Simvastatin [Zocor] 20 mg PO HS 04/21/19 [History] DULoxetine HCL [Cymbalta] 60 mg PO BID 04/04/20 [History] Fluticasone Nasal [place] [Flonase Nasal [place]] 2 spr EA NOSTRIL DAILY 04/04/20 [History] Magnesium Oxide [[place]] 500 mg PO DAILY 04/04/20 [History] Octreotide Acetate,Mi-Spheres [SandoSTATIN [place]] 10 mg IM Q28D 04/04/20 [History] Octreotide Acetate,Mi-Spheres [SandoSTATIN [place]] 30 mg IM Q28D 04/04/20 [History] Potassium Chloride ER [K-Dur 10] 10 meq PO DAILY 04/04/20 [History] Prevagen 1 tab PO DAILY 04/04/20 [History] QUEtiapine FUMARATE [QUEtiapine FUMARATE ER] 200 mg PO HS 04/04/20 [History] Mansoor-Forte 1mg 1 mg PO DAILY 04/04/20 [History] Ibuprofen [Motrin] 400 mg PO TID PRN #0 04/07/20 [Rx] Multivitamins, Thera [Multivitamin (formulary)] 1 each PO DAILY@1200 #0 tab 04/07/20 [Rx] Follow up Appointment(s)/Referral(s): Gail Tidwell DO [Primary Care Provider] - 04/21/20 3:00 pm Maximus Gould MD [STAFF PHYSICIAN] - 04/21/20 4:30 pm Patient Instructions/Handouts: Syncope (DC) Discharge Disposition: HOME SELF-CARE
== END 2020-04-14 11:02 | disposition home or self-care (01) ==
LOC: EC 12:21 → 1SOBS 14:27
PROVIDERS: ADMIT Family Medicine; ATTEND Family Medicine
DX: R55 Syncope and collapse (principal); E86.0 Dehydration; N17.0 Acute kidney failure with tubular necrosis; D63.8 Anemia in other chronic diseases classified elsewhere; E78.5 Hyperlipidemia, unspecified; Z11.59 Encounter for screening for other viral diseases; E87.5 Hyperkalemia; I10 Essential (primary) hypertension; I25.10 Atherosclerotic heart disease of native coronary artery without angina pectoris; K52.9 Noninfective gastroenteritis and colitis, unspecified; W19.XXXA Unspecified fall, initial encounter; Z79.82 Long term (current) use of aspirin; Z79.899 Other long term (current) drug therapy; Z85.828 Personal history of other malignant neoplasm of skin; Z90.49 Acquired absence of other specified parts of digestive tract; Z95.1 Presence of aortocoronary bypass graft; Z85.46 Personal history of malignant neoplasm of prostate; Z85.038 Personal history of other malignant neoplasm of large intestine
CPT/HCPCS: 96366 ×2; 96376; 96361; 96365; 99291; 36415; 93005 ×2; 85379; 83880; 80061; 80053; 80048; 82550; 83735; 84100; 84484; 85025 ×2; 85610; 85730 ×2; 81003; 71046; 78582; G0378 ×2; U0003; A9540; A9567; J1644 ×2

== ENCOUNTER 2020-05-20 02:27 | Emergency (ER) | payer MEDICARE, BC ==
[2020-05-20] MEDS ORDERED: SODIUM CHLORIDE 0.9% 500 ML 500 ML IV STA (02:31)
[2020-05-20 03:10] LABS: Albumin 4.3 g/dL (3.5-5.0); Calcium 8.9 mg/dL (8.4-10.2); Total Bilirubin 0.6 mg/dL (0.2-1.3); Total Protein 7.1 g/dL (6.3-8.2)
[2020-05-20 03:18] LABS: Potassium 4.5 mmol/L (3.5-5.1)
[2020-05-20 03:21] LABS: Basophils % (A) 0 %; Eosinophils # (A) 0.1 k/uL (0-0.7); Eosinophils % (A) 1 %; Lymphocytes # (A) 0.5 k/uL (1.0-4.8); Lymphocytes % (A) 4 %; MCH 32.5 pg (25.0-35.0); MCHC 32.7 g/dL (31.0-37.0); MCV 99.5 fL (80.0-100.0); Mean Platelet Volume 7.8; Monocytes # (A) 0.3 k/uL (0-1.0); Monocytes % (A) 2 %; Neutrophils # (A) 12.2 k/uL (1.3-7.7); Neutrophils % (A) 93 %; Platelet Count 315 k/uL (150-450); RBC 3.62 m/uL (4.30-5.90); RDW 13.9 % (11.5-15.5); WBC 13.1 k/uL (3.8-10.6)
[2020-05-20] MEDS ORDERED: MORPHINE SULFATE 4 MG/ML SYRINGE IVP STA (03:28)
[2020-05-20] MEDS ORDERED: SODIUM CHLORIDE 0.9% 1,000 ML IV ONE (03:29)
--- NOTE | 2020-05-20 03:29 | ED ---
Nausea/Vomiting/Diarrhea HPI - General Stated complaint: Nausea, vomiting Time Seen by Provider: 05/20/20 02:31 Source: patient, EMS Mode of arrival: EMS Limitations: no limitations - History of Present Illness Initial comments: Reinier is a pleasant 79-year-old gentleman presents the ER today via EMS for evaluation of nausea, vomiting and diarrhea for 2 hours duration. Patient r eports that last night he ate dinner with his son, they ate the same thing chicken nuggets from [employer]. Patient reports that he felt fine at the time of eating however approximately 2 and half hours prior to arrival he developed nausea, multiple episodes of nonbloody nonbilious emesis, multiple episodes of nonbloody diarrhea. Patient reports this persisted for 2 hours. When the diarrhea slowed down he contacted EMS for transport to the hospital due to concern for dehydration. - Related Data Home Medications Medication Instructions Recorded Confirmed Omeprazole [PriLOSEC] 40 mg PO DAILY 03/18/16 04/13/20 Aspirin EC [Ecotrin Low Dose] 81 mg PO DAILY 07/29/16 04/13/20 Folic Acid 1 mg PO DAILY 07/29/16 04/13/20 Dicyclomine [Bentyl] 20 mg PO QID PRN 04/21/19 04/13/20 Diphenox-Atrop 2.5-0.025 mg 2 tab PO QID PRN 04/21/19 04/13/20 [Lomotil] Gabapentin [Neurontin] 600 mg PO BID 04/21/19 04/13/20 Simvastatin [Zocor] 20 mg PO HS 04/21/19 04/13/20 DULoxetine HCL [Cymbalta] 60 mg PO BID 04/04/20 04/13/20 Fluticasone Nasal [place] [Flonase 2 spr EA NOSTRIL DAILY 04/04/20 04/13/20 Nasal [place]] Magnesium Oxide [[place]] 500 mg PO DAILY 04/04/20 04/13/20 Octreotide Acetate,Mi-Spheres 10 mg IM Q28D 04/04/20 04/13/20 [SandoSTATIN [place]AR [place]] Octreotide Acetate,Mi-Spheres 30 mg IM Q28D 04/04/20 04/13/20 [SandoSTATIN [place]] Potassium Chloride ER [K-Dur 10] 10 meq PO DAILY 04/04/20 04/13/20 Prevagen 1 tab PO DAILY 04/04/20 04/13/20 QUEtiapine FUMARATE [QUEtiapine 200 mg PO HS 04/04/20 04/13/20 FUMARATE ER] Mansoor-Forte 1mg 1 mg PO DAILY 04/04/20 04/13/20 Previous Rx's Medication Instructions Recorded Ibuprofen [Motrin] 400 mg PO TID PRN #0 04/07/20 Multivitamins, Thera [Multivitamin 1 each PO DAILY@1200 #0 tab 04/07/20 (formulary)] Allergies Allergy/AdvReac Type Severity Reaction Status Date / Time No Known Allergies Allergy Verified 04/13/20 16:57 Review of Systems ROS Statement: Those systems with pertinent positive or pertinent negative responses have been documented in the HPI. ROS Other: All systems not noted in ROS Statement are negative. 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 , STATES BILATERAL INGUINAL HERNIA REPAIR. bowel resect Past Anesthesia/Blood Transfusion Reactions: No Reported Reaction Past Psychological History: No Psychological Hx Reported Smoking Status: Never smoker Past Alcohol Use History: None Reported Past Drug Use History: None Reported - Past Family History Mother Family Medical History: No Reported History General Exam - General Exam Comments Initial Comments: Physical Exam GENERAL: Patient appears dehydrated HENT: Normocephalic, Atraumatic. Dry oral mucosa EYES: PERRL, EOMI PULMONARY: Unlabored respirations. CARDIOVASCULAR: RRR Warm and well perfused extremities ABDOMEN: Non-distended Soft, non-tender SKIN: Tenting noted : Deferred NEUROLOGIC: Alert and oriented Normal speech Normal gait MUSCULOSKELETAL: Moving all extremities with no apparent injury PSYCHIATRIC: No SI/HI Limitations: no limitations Course Vital Signs 05/20/20 05/20/20 05/20/20 02:29 03:44 04:23 Temperature 98.4 F 97.7 F Pulse Rate 99 88 94 Respiratory 18 18 16 Rate Blood Pressure 145/101 145/89 161/95 O2 Sat by Pulse 99 100 100 Oximetry 05/20/20 06:00 Temperature 98.9 F Pulse Rate 110 H Respiratory 18 Rate Blood Pressure 134/73 O2 Sat by Pulse 96 Oximetry Medical Decision Making - Medical Decision Making The patient was seen and evaluated, history is obtained from the patient History and physical exam are concerning for dehydration due to acute gastroenteritis with nausea, vomiting and diarrhea Labs and IV fluids were ordered Labs resulted with mild leukocytosis, improvement in the patient's previous an emia, acute kidney injury, hypomagnesemia Patient received IV fluids for acute kidney injury, magnesium supplement was ordered She with no nausea vomiting or diarrhea in the emergency department. Patient to be discharged home after IV fluids. - Lab Data Result diagrams: 05/20/20 03:14 05/20/20 02:52 Lab Results 05/20/20 05/20/20 05/20/20 Range/Units 02:52 03:14 04:26 WBC 13.1 H (3.8-10.6) k/uL RBC 3.62 L (4.30-5.90) m/uL Hgb 11.8 L D (13.0-17.5) gm/dL Hct 36.0 L (39.0-53.0) % MCV 99.5 (80.0-100.0) fL MCH 32.5 (25.0-35.0) pg MCHC 32.7 (31.0-37.0) g/dL RDW 13.9 (11.5-15.5) % Plt Count 315 (150-450) k/uL Neutrophils % 93 % Lymphocytes % 4 % Monocytes % 2 % Eosinophils % 1 % Basophils % 0 % Neutrophils # 12.2 H (1.3-7.7) k/uL Lymphocytes # 0.5 L (1.0-4.8) k/uL Monocytes # 0.3 (0-1.0) k/uL Eosinophils # 0.1 (0-0.7) k/uL Basophils # 0.0 (0-0.2) k/uL Sodium 139 (137-145) mmol/L Potassium 4.5 (3.5-5.1) mmol/L Chloride 112 H (98-107) mmol/L Carbon Dioxide 14 L (22-30) mmol/L Anion Gap 13 mmol/L BUN 20 (9-20) mg/dL Creatinine 1.87 H (0.66-1.25) mg/dL Est GFR (CKD-EPI)AfAm 39 (>60 ml/min/1.73 sqM) Est GFR (CKD-EPI)NonAf 33 (>60 ml/min/1.73 sqM) Glucose 155 H (74-99) mg/dL Calcium 8.9 (8.4-10.2) mg/dL Magnesium 1.0 L (1.6-2.3) mg/dL Total Bilirubin 0.6 (0.2-1.3) mg/dL AST 25 (17-59) U/L ALT 14 (4-49) U/L Alkaline Phosphatase 48 (38-126) U/L Total Protein 7.1 (6.3-8.2) g/dL Albumin 4.3 (3.5-5.0) g/dL Amylase 45 (30-110) U/L Lipase 55 (23-300) U/L Urine Color Yellow Urine Appearance Clear (Clear) Urine pH 5.5 (5.0-8.0) Ur Specific [place] 1.019 (1.001-1.035) Urine Protein Trace H (Negative) Urine Glucose (UA) Negative (Negative) Urine Ketones Negative (Negative) Urine Blood Negative (Negative) Urine Nitrite Negative (Negative) Urine Bilirubin Negative (Negative) Urine Urobilinogen <2.0 (<2.0) mg/dL Ur Leukocyte Esterase Negative (Negative) Disposition Clinical Impression: Food poisoning Disposition: HOME SELF-CARE Condition: Stable Instructions (If sedation given, give patient instructions): Acute Nausea and Vomiting (ED) Is patient prescribed a controlled substance at d/c from ED?: No Referrals: Gail Tidwell DO [Primary Care Provider] - 1-2 days
[2020-05-20 03:33] LABS: HGB 11.8 gm/dL (13.0-17.5)
[2020-05-20] MEDS ORDERED: PANTOPRAZOLE 40 MG/10 ML VIAL IVP STA (04:10)
[2020-05-20] MEDS ORDERED: MAG HYDROX/AL HYDROX/SIMETH 30 ML, HYOSCYAMINE ELIXIR 10 ML, LIDOCAINE VISCOUS 2% 10 ML PO STA ×3 (04:10)
[2020-05-20 04:33] LABS: Appearance,Urine Clear (Clear); Bilirubin,Urine Negative (Negative); Blood,Urine Negative (Negative); Color,Urine Yellow; Glucose,Urine (UA) Negative (Negative); Ketones,Urine Negative (Negative); Leukocyte Esterase,Urine Negative (Negative); Nitrite,Urine Negative (Negative); PH, Urine 5.5 (5.0-8.0); Protein,Urine Trace (Negative); Specific Gravity,Urine 1.019 (1.001-1.035); Urobilinogen,Urine <2.0 mg/dL (<2.0)
[2020-05-20] MEDS ORDERED: MAGNESIUM SULFATE-D5W PMX 1 GM in DEXTROSE/WATER 1 100ML.BAG IVPB ONE (04:41)
[2020-05-20] MEDS ORDERED: LORazepam 2 MG/ML INJ IV STA (04:50)
[2020-05-20 06:09] VITALS: BP 134/73; PULSE 110; TEMP 98.9
[2020-05-20 06:28] VITALS: RESP 18
== END 2020-05-20 07:45 | disposition home or self-care (01) ==
LOC: EC 02:27
DX: A05.9 Bacterial foodborne intoxication, unspecified (principal); K52.9 Noninfective gastroenteritis and colitis, unspecified; D72.829 Elevated white blood cell count, unspecified; N17.9 Acute kidney failure, unspecified; D64.9 Anemia, unspecified; E83.42 Hypomagnesemia; K21.9 Gastro-esophageal reflux disease without esophagitis; M19.90 Unspecified osteoarthritis, unspecified site; G89.29 Other chronic pain; M54.9 Dorsalgia, unspecified; E78.5 Hyperlipidemia, unspecified; Z79.51 Long term (current) use of inhaled steroids; Z79.899 Other long term (current) drug therapy; Z79.82 Long term (current) use of aspirin; Z90.49 Acquired absence of other specified parts of digestive tract; Z85.46 Personal history of malignant neoplasm of prostate; Z85.038 Personal history of other malignant neoplasm of large intestine; Z85.828 Personal history of other malignant neoplasm of skin
CPT/HCPCS: 36415; 80053; 82150; 83690; 83735; 85025; 81003; 99284; 96365; 96375 ×3; 96361 ×4; J2060; J2270; J3475; C9113

== ENCOUNTER 2020-06-01 07:26 | Inpatient (IN) | payer MEDICARE, BC ==
[2020-06-01] MEDS ORDERED: MORPHINE SULFATE 4 MG/ML SYRINGE IV STA (07:38)
[2020-06-01] MEDS ORDERED: SODIUM CHLORIDE 0.9% 1,000 ML IV STA (07:38)
[2020-06-01] MEDS ORDERED: ONDANSETRON 4 MG/2 ML VIAL IVP STA (07:38)
--- NOTE | 2020-06-01 07:40 | ED ---
Abdominal Pain HPI - General Chief Complaint: Abdominal Pain Stated Complaint: nausea/vomiting Time Seen by Provider: 06/01/20 07:28 Source: patient, EMS, RN notes reviewed Mode of arrival: EMS Limitations: no limitations - History of Present Illness Initial Comments: This is an 79-year-old male presents emergency Department chief complaint of abdominal pain, nausea vomiting. Patient states that since 7:00 last night he's had increasing abdominal pain which is diffuse, abdominal distention, nausea vomiting. Patient states he's had prior abdominal surgeries which include a cholecystectomy, small bowel resection secondary to cancer, and hernia repair. Patient states his surgeon is Dr. Rosales. Patient denies any known fevers chills no chest pain or shortness of breath. Patient states he has chronic diarrhea and which she wears depends for. Patient has no dysuria no hematuria. - Related Data Home Medications Medication Instructions Recorded Confirmed Omeprazole [PriLOSEC] 40 mg PO DAILY 03/18/16 06/01/20 Aspirin EC [Ecotrin Low Dose] 81 mg PO DAILY 07/29/16 06/01/20 Folic Acid 1 mg PO DAILY 07/29/16 06/01/20 Dicyclomine [Bentyl] 20 mg PO QID PRN 04/21/19 06/01/20 Diphenox-Atrop 2.5-0.025 mg 2 tab PO QID PRN 04/21/19 06/01/20 [Lomotil] Gabapentin [Neurontin] 600 mg PO BID 04/21/19 06/01/20 Simvastatin [Zocor] 20 mg PO HS 04/21/19 06/01/20 DULoxetine HCL [Cymbalta] 60 mg PO BID 04/04/20 06/01/20 Fluticasone Nasal [place] [Flonase 2 spr EA NOSTRIL DAILY 04/04/20 06/01/20 Nasal [place]] Magnesium Oxide [[place]] 500 mg PO DAILY 04/04/20 06/01/20 Octreotide Acetate,Mi-Spheres 30 mg IM Q28D 04/04/20 06/01/20 [SandoSTATIN LAR [place]] Potassium Chloride ER [K-Dur 10] 10 meq PO DAILY 04/04/20 06/01/20 Prevagen 1 tab PO DAILY 04/04/20 06/01/20 QUEtiapine FUMARATE [QUEtiapine 200 mg PO HS 04/04/20 06/01/20 FUMARATE ER] Mansoor-Forte 1mg 1 mg PO DAILY 04/04/20 06/01/20 Previous Rx's Medication Instructions Recorded Ibuprofen [Motrin] 400 mg PO TID PRN #0 04/07/20 Multivitamins, Thera [Multivitamin 1 each PO DAILY@1200 #0 tab 04/07/20 (formulary)] Allergies Allergy/AdvReac Type Severity Reaction Status Date / Time No Known Allergies Allergy Verified 06/01/20 09:19 Review of Systems ROS Statement: Those systems with pertinent positive or pertinent negative responses have been documented in the HPI. ROS Other: All systems not noted in ROS Statement are negative. 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 , STATES BILATERAL INGUINAL HERNIA REPAIR. bowel resect Past Anesthesia/Blood Transfusion Reactions: No Reported Reaction Past Psychological History: No Psychological Hx Reported Smoking Status: Never smoker Past Alcohol Use History: None Reported Past Drug Use History: None Reported - Past Family History Mother Family Medical History: No Reported History General Exam Limitations: no limitations General appearance: alert, in no apparent distress Head exam: Present: atraumatic, normocephalic, normal inspection Eye exam: Present: normal appearance, PERRL, EOMI. Absent: scleral icterus, conjunctival injection, periorbital swelling ENT exam: Present: normal exam, mucous membranes moist Neck exam: Present: normal inspection, full ROM. Absent: tenderness, meningismus, lymphadenopathy Respiratory exam: Present: normal lung sounds bilaterally. Absent: respiratory distress, wheezes, rales, rhonchi, stridor Cardiovascular Exam: Present: regular rate, normal rhythm, normal heart sounds. Absent: systolic murmur, diastolic murmur, rubs, gallop, clicks GI/Abdominal exam: Present: soft, distended, tenderness, normal bowel sounds. Absent: guarding, rebound, rigid Back exam: Absent: CVA tenderness (R), CVA tenderness (L) Neurological exam: Present: alert, oriented X3 Skin exam: Present: warm, dry, intact, normal color. Absent: rash Course Vital Signs 06/01/20 06/01/20 07:27 08:58 Temperature 98.1 F Pulse Rate 96 90 Respiratory 19 17 Rate Blood Pressure 156/101 140/88 O2 Sat by Pulse 100 100 Oximetry Medical Decision Making - Medical Decision Making 79-year-old presented for abdominal pain. Patient has small bowel traction. NG tube will be placed. Patient will be admitted to Dr. Velásquez covering for Dr. Luciano. Consult to Dr. Rosales as patient has seen physicians in the past. - Lab Data Result diagrams: 06/01/20 08:33 06/01/20 08:33 Lab Results 06/01/20 06/01/20 06/01/20 Range/Units 08:33 08:33 08:33 WBC 14.7 H (3.8-10.6) k/uL RBC 3.61 L (4.30-5.90) m/uL Hgb 11.5 L (13.0-17.5) gm/dL Hct 34.8 L (39.0-53.0) % MCV 96.4 (80.0-100.0) fL MCH 31.8 (25.0-35.0) pg MCHC 33.0 (31.0-37.0) g/dL RDW 12.6 (11.5-15.5) % Plt Count 361 (150-450) k/uL Neutrophils % 91 % Lymphocytes % 6 % Monocytes % 2 % Eosinophils % 0 % Basophils % 0 % Neutrophils # 13.3 H (1.3-7.7) k/uL Lymphocytes # 0.8 L (1.0-4.8) k/uL Monocytes # 0.3 (0-1.0) k/uL Eosinophils # 0.1 (0-0.7) k/uL Basophils # 0.0 (0-0.2) k/uL Sodium 139 (137-145) mmol/L Potassium 5.4 H (3.5-5.1) mmol/L Chloride 107 (98-107) mmol/L Carbon Dioxide 20 L (22-30) mmol/L Anion Gap 12 mmol/L BUN 22 H (9-20) mg/dL Creatinine 1.46 H (0.66-1.25) mg/dL Est GFR (CKD-EPI)AfAm 52 (>60 ml/min/1.73 sqM) Est GFR (CKD-EPI)NonAf 45 (>60 ml/min/1.73 sqM) Glucose 139 H (74-99) mg/dL Plasma Lactic Acid J Carlos 2.1 H* (0.7-2.0) mmol/L Calcium 9.1 (8.4-10.2) mg/dL Total Bilirubin 0.5 (0.2-1.3) mg/dL AST 18 (17-59) U/L ALT 11 (4-49) U/L Alkaline Phosphatase 65 (38-126) U/L Total Protein 6.8 (6.3-8.2) g/dL Albumin 4.0 (3.5-5.0) g/dL Amylase 40 (30-110) U/L Lipase 19 L (23-300) U/L Disposition Clinical Impression: Small bowel obstruction Disposition: ADMITTED IP TO THIS HOSP Condition: Fair Referrals: Gail Tidwell DO [Primary Care Provider] - 1-2 days
[2020-06-01 08:55] LABS: Basophils % (A) 0 %; Eosinophils # (A) 0.1 k/uL (0-0.7); Eosinophils % (A) 0 %; HCT 34.8 % (39.0-53.0); HGB 11.5 gm/dL (13.0-17.5); Lymphocytes # (A) 0.8 k/uL (1.0-4.8); Lymphocytes % (A) 6 %; MCH 31.8 pg (25.0-35.0); MCV 96.4 fL (80.0-100.0); Mean Platelet Volume 7.2; Monocytes # (A) 0.3 k/uL (0-1.0); Monocytes % (A) 2 %; Neutrophils # (A) 13.3 k/uL (1.3-7.7); Neutrophils % (A) 91 %; Platelet Count 361 k/uL (150-450); RBC 3.61 m/uL (4.30-5.90); RDW 12.6 % (11.5-15.5); WBC 14.7 k/uL (3.8-10.6)
[2020-06-01] MEDS ORDERED: HYDROmorphone 0.5 MG/0.5 ML SYRINGE IVP STA (08:58)
[2020-06-01 09:06] LABS: Calcium 9.1 mg/dL (8.4-10.2); Potassium 5.4 mmol/L (3.5-5.1); Total Bilirubin 0.5 mg/dL (0.2-1.3); Total Protein 6.8 g/dL (6.3-8.2)
--- NOTE | 2020-06-01 09:15 | CT ---
EXAMINATION TYPE: CT abdomen pelvis wo con DATE OF EXAM: 06/01/2020 HISTORY: nausea and vomiting, pain CT DLP: 429.1 mGycm. Automated Exposure Control for Dose Reduction was Utilized. TECHNIQUE: CT scan of the abdomen and pelvis is performed without oral or IV contrast. COMPARISON: CT abdomen and pelvis April 05, 2020 and older CTs FINDINGS: Within the limitations of a non-contrast study, the following observations are made. LUNG BASES: Mild emphysematous change with overlying sternal wires partially imaged. New patchy left basilar acute infiltrate and/or atelectasis. Correlate clinically as there is more medial infrahilar consolidation with air bronchogram noted axial image 9. LIVER/GB: Cholecystectomy clips are redemonstrated.. PANCREAS: No significant abnormality is seen. SPLEEN: No significant abnormality is seen. ADRENALS: No significant abnormality is seen. KIDNEYS: Some cortical thinning in both kidneys is present. Stable 1 to 2 mm central calculus right k idney coronal image 79. There are 3 calculi scattered throughout the left kidney measuring up to 4 to 5 mm long axis axial image 30. No hydronephrosis or obstructing ureter calculi bilaterally. BOWEL: Small to moderate size hiatal hernia redemonstrated. There is air-fluid level now present. The re is air-fluid level in mildly distended stomach. There is some fluid-filled prominence of the proxi mal duodenum with nondigested pill axial images 33. Duodenal sweep shows less prominence. Proximal je junal loops not suspiciously dilated. There is gradual transition into more prominent and dilated fluid-filled jejunal loops in the left ab domen with multiple air-fluid levels. Small bowel sutures noted right mid abdomen. There are fluid-fi lled and dilated mid to distal small bowel loops. Along the periphery fecal material is seen in nondistended colon. Mild wall thickening involving the transverse colon is present. Terminal ileum is not dilated. There may be transition point near surgic al sutures right midabdomen on the right pelvis where there is decompressed distal ileal loops noted. Some ill-defined fluid and fat stranding anterior to the sutures is present. Possible side to side a nastomosis at this level. I do favor transition point right lower quadrant near axial image 60 right before terminal ileum. Small bowel dilated up to 5.4 cm axial image 55. GENITAL ORGANS: Multiple brachytherapy seeds in normal size prostate gland redemonstrated. LYMPH NODES: No greater than 1cm abdominal or pelvic lymph nodes are appreciated. OSSEOUS STRUCTURES: Moderate narrowing and mild to moderate acetabular spurring of both hips redemons trated. OTHER: Penile prosthesis with fluid-filled pump anterior right pelvis. Small amount of fluid right in fracolic gutter axial image 59. IMPRESSION: 1. Findings consistent with new distal high-grade small bowel obstruction presumed on the basis of ad hesions localized to the right lower quadrant/upper pelvis. 2. Possible developing acute infiltrate in the left lower lobe, correlate clinically.
[2020-06-01] MEDS ORDERED: NALOXONE 0.4 MG/ML 1 ML VIAL IV PRN (09:29)
[2020-06-01] MEDS ORDERED: ONDANSETRON 4 MG/2 ML VIAL IVP PRN (09:29)
[2020-06-01 09:50] LABS: Appearance,Urine Clear (Clear); Bilirubin,Urine Negative (Negative); Blood,Urine Negative (Negative); Color,Urine Yellow; Glucose,Urine (UA) Negative (Negative); Ketones,Urine Negative (Negative); Leukocyte Esterase,Urine Negative (Negative); Nitrite,Urine Negative (Negative); Protein,Urine Negative (Negative); Specific Gravity,Urine 1.013 (1.001-1.035); Urobilinogen,Urine <2.0 mg/dL (<2.0)
--- NOTE | 2020-06-01 10:19 | XR ---
EXAMINATION TYPE: XR KUB portable DATE OF EXAM: 06/01/2020 10:14 AM CLINICAL HISTORY: Distal Small bowel obstruction, status post nasogastric tube placement TECHNIQUE: Single portable supine KUB image of the abdomen is obtained. COMPARISON: CT abdomen and pelvis earlier today. FINDINGS: New nasogastric tube projects below diaphragm. Gas prominent small bowel loops central to l eft mid to lower abdomen remain present. Interval decompression of stomach after nasogastric tube kenneth cement. Cholecystectomy clips. Slight underlying scoliotic curvature. Partial visualization of medias tinal clips. IMPRESSION: Interval successful placement of nasogastric tube and decompression of stomach.
[2020-06-01] MEDS: SODIUM CHLORIDE 0.9% 1,000 ML IV SCH ×2 (10:22→17:17)
--- NOTE | 2020-06-01 11:39 | P.GSCN ---
History of Present Illness Consult date: 06/01/20 Reason for Consult: Small bowel obstruction History of present illness: The patient is a 79-year-old man who is well-known to me. He began having abdominal pain yesterday. He started developing nausea and vomiting. He went into the emergency department and CT was suggestive of at least a partial small bowel obstruction. An NG tube is placed in his pain is much improved. He has history of multiple abdominal surgeries in the past including a right hemicolectomy for a carcinoid tumor. The patient has chronic diarrhea which is likely a combination of the carcinoid and prior right hemicolectomy with colostomy the ileocecal valve. He sees Dr. Bush regularly and receives octreotide for this. 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 , STATES BILATERAL INGUINAL HERNIA REPAIR. bowel resect Past Anesthesia/Blood Transfusion Reactions: No Reported Reaction Past Psychological History: No Psychological Hx Reported Smoking Status: Never smoker Past Alcohol Use History: None Reported Additional Past Alcohol Use History / Comment(s): Patient reports that he would smoke cigars Past Drug Use History: None Reported - Past Family History Mother Family Medical History: No Reported History Medications and Allergies Home Medications Medication Instructions Recorded Confirmed Type Omeprazole [PriLOSEC] 40 mg PO DAILY 03/18/16 06/01/20 History Aspirin EC [Ecotrin Low Dose] 81 mg PO DAILY 07/29/16 06/01/20 History Folic Acid 1 mg PO DAILY 07/29/16 06/01/20 History Dicyclomine [Bentyl] 20 mg PO QID PRN 04/21/19 06/01/20 History Diphenox-Atrop 2.5-0.025 mg 2 tab PO QID PRN 04/21/19 06/01/20 History [Lomotil] Gabapentin [Neurontin] 600 mg PO BID 04/21/19 06/01/20 History Simvastatin [Zocor] 20 mg PO HS 04/21/19 06/01/20 History DULoxetine HCL [Cymbalta] 60 mg PO BID 04/04/20 06/01/20 History Fluticasone Nasal [place] [Flonase 2 spr EA NOSTRIL DAILY 04/04/20 06/01/20 History Nasal [place]] Magnesium Oxide [[place]] 500 mg PO DAILY 04/04/20 06/01/20 History Octreotide Acetate,Mi-Spheres 30 mg IM Q28D 04/04/20 06/01/20 History [SandoSTATIN LAR [place]] Potassium Chloride ER [K-Dur 10] 10 meq PO DAILY 04/04/20 06/01/20 History Prevagen 1 tab PO DAILY 04/04/20 06/01/20 History QUEtiapine FUMARATE [QUEtiapine 200 mg PO HS 04/04/20 06/01/20 History FUMARATE ER] Mansoor-Forte 1mg 1 mg PO DAILY 04/04/20 06/01/20 History Ibuprofen [Motrin] 400 mg PO TID PRN #0 04/07/20 06/01/20 Rx Multivitamins, Thera [Multivitamin 1 each PO DAILY@1200 #0 tab 04/07/20 06/01/20 Rx (formulary)] Allergies Allergy/AdvReac Type Severity Reaction Status Date / Time No Known Allergies Allergy Verified 06/01/20 09:19 Surgical - Exam Osteopathic Statement: *. No significant issues noted on an osteopathic structural exam other than those noted in the History and Physical/Consult. Vital Signs Temp Pulse Resp BP Pulse Ox 98.1 F 96 19 156/101 100 06/01/20 07:27 06/01/20 07:27 06/01/20 07:27 06/01/20 07:27 06/01/20 07:27 - General Thin no distress - Neck trachea midline - Respiratory clear to auscultation - Cardiovascular Rhythm: regular - Abdomen Abdomen: soft, tender (Mid abdomen), surgical scars, no guarding, no rigid, no rebound, distended (Mildly distended) Results - Labs 06/01/20 08:33 06/01/20 08:33 Abnormal Lab Results - Last 24 Hours (Table) 06/01/20 06/01/20 06/01/20 Range/Units 08:33 08:33 08:33 WBC 14.7 H (3.8-10.6) k/uL RBC 3.61 L (4.30-5.90) m/uL Hgb 11.5 L (13.0-17.5) gm/dL Hct 34.8 L (39.0-53.0) % Neutrophils # 13.3 H (1.3-7.7) k/uL Lymphocytes # 0.8 L (1.0-4.8) k/uL Potassium 5.4 H (3.5-5.1) mmol/L Carbon Dioxide 20 L (22-30) mmol/L BUN 22 H (9-20) mg/dL Creatinine 1.46 H (0.66-1.25) mg/dL Glucose 139 H (74-99) mg/dL Plasma Lactic Acid J Carlos 2.1 H* (0.7-2.0) mmol/L Lipase 19 L (23-300) U/L Diabetes panel 06/01/20 Range/Units 08:33 Sodium 139 (137-145) mmol/L Potassium 5.4 H (3.5-5.1) mmol/L Chloride 107 (98-107) mmol/L Carbon Dioxide 20 L (22-30) mmol/L BUN 22 H (9-20) mg/dL Creatinine 1.46 H (0.66-1.25) mg/dL Glucose 139 H (74-99) mg/dL Calcium 9.1 (8.4-10.2) mg/dL AST 18 (17-59) U/L ALT 11 (4-49) U/L Alkaline Phosphatase 65 (38-126) U/L Total Protein 6.8 (6.3-8.2) g/dL Albumin 4.0 (3.5-5.0) g/dL Calcium panel 06/01/20 Range/Units 08:33 Calcium 9.1 (8.4-10.2) mg/dL Albumin 4.0 (3.5-5.0) g/dL Pituitary panel 06/01/20 Range/Units 08:33 Sodium 139 (137-145) mmol/L Potassium 5.4 H (3.5-5.1) mmol/L Chloride 107 (98-107) mmol/L Carbon Dioxide 20 L (22-30) mmol/L BUN 22 H (9-20) mg/dL Creatinine 1.46 H (0.66-1.25) mg/dL Glucose 139 H (74-99) mg/dL Calcium 9.1 (8.4-10.2) mg/dL Adrenal panel 06/01/20 Range/Units 08:33 Sodium 139 (137-145) mmol/L Potassium 5.4 H (3.5-5.1) mmol/L Chloride 107 (98-107) mmol/L Carbon Dioxide 20 L (22-30) mmol/L BUN 22 H (9-20) mg/dL Creatinine 1.46 H (0.66-1.25) mg/dL Glucose 139 H (74-99) mg/dL Calcium 9.1 (8.4-10.2) mg/dL Total Bilirubin 0.5 (0.2-1.3) mg/dL AST 18 (17-59) U/L ALT 11 (4-49) U/L Alkaline Phosphatase 65 (38-126) U/L Total Protein 6.8 (6.3-8.2) g/dL Albumin 4.0 (3.5-5.0) g/dL - Imaging CT scan - abdomen: report reviewed, image reviewed Assessment and Plan (1) SBO (small bowel obstruction) Current Visit: Yes Status: Acute Code(s): K56.69 - OTHER INTESTINAL OBSTRUCTION * DO NOT USE * SNOMED Code(s): 729608865 (2) Abdominal pain Current Visit: No Status: Acute Code(s): R10.9 - UNSPECIFIED ABDOMINAL PAIN SNOMED Code(s): 56764063 (3) Chronic diarrhea Current Visit: No Status: Acute Code(s): K52.9 - NONINFECTIVE GASTROENTERITIS AND COLITIS, UNSPECIFIED SNOMED Code(s): 465205379 Plan: The patient has had some intermittent bowel obstructions in the past which haven't responded to medical therapy. We'll do the NG tube decompression. Hydrate, pain control, serial exams. Repeat x-rays in the morning. DVT and ulcer prophylaxis. Currently nonsurgical. I will follow with you.
[2020-06-01] MEDS: GABAPENTIN 300 MG CAP PO SCH ×3 (12:45→20:45)
[2020-06-01] MEDS: ASPIRIN 81 MG PO SCH ×2 (12:46→12:50)
[2020-06-01] MEDS: FOLIC ACID 1 MG TAB PO SCH ×2 (12:46→12:50)
[2020-06-01] MEDS: DULoxetine HCL 60 MG CAPSULE.DR PO SCH ×3 (12:46→20:45)
[2020-06-01] MEDS: HYDROmorphone 0.5 MG/0.5 ML SYRINGE IVP PRN ×3 (12:55→20:45)
--- NOTE | 2020-06-01 15:35 | P.HPIM ---
History of Present Illness Chief Complaint: Abdominal pain, nausea and vomiting Presents to the hospital with complaint of abdominal pain, nausea and vomiting, and increased frequency of diarrhea. Symptoms began about 24 hours prior to presentation. CT abdomen and pelvis showing possible partial small bowel obstruction secondary to adhesions. 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 He follows with Dr. Bush as outpatient and received octreotide for this. Admission labs showed creatinine 1.46, potassium elevated at 5.4 likely due to dehydration and acute kidney injury. WBC elevated at 14.7, he is afebrile. Elevated lactate at 2.1. He was fluid resuscitated in the ER, currently maintained on normal saline at 100. Evaluated by general surgery, has NG tube in place to suction and is nothing by mouth at this time. Still having abdominal pain, although receiving IV morphine which has been effective. Reports abdominal pain is now a 3/10, compared to 9/10 on admission. Nausea and vomiting improved with antiemetics. Afebrile, hemodynamically stable. Review of Systems REVIEW OF SYSTEMS: ENT: No diminished vision or hearing. CARDIOVASCULAR: Mentioned earlier. RESPIRATORY: As mentioned earlier. GI: Abdominal pain, nausea, vomiting VOUS SYSTEM: No numbness or weakness. ALLERGY/IMMUNOLOGY: No asthma or hay fever. MUSCULOSKELETAL: As mentioned earlier. HEMATOLOGY/ONCOLOGY: No history of anemia. ENDOCRINE: No history of diabetes or hypothyroidism. CONSTITUTIONAL: Generalized weakness PSYCHIATRY: Mentioned earlier. RHEUMATOLOGY: Negative. Past Medical History Past Medical History: Coronary Artery Disease (CAD), Cancer, GERD/Reflux, Hyperlipidemia, Hypertension, Osteoarthritis (OA), Prostate Disorder, Syncope Additional Past Medical History / Comment(s): HX OF PROSTATE AND COLON CANCER, SKIN CANCER ON NOSE AND RIGHT EAR, BACK PAIN, chronic diarrhea (8 months). History of sigmoid diverticulosis, ileus, carcinoid syndrome History of Any Multi-Drug Resistant Organisms: None Reported Past Surgical History: Bowel Resection, Cholecystectomy, Coronary Bypass/CABG, Heart Catheterization, Hernia Repair, Prostate Surgery Additional Past Surgical History / Comment(s): X2 PENILE IMPLANT, RADIOACTIVE SEEDS FOR PROSTATE CANCER, FUNDOPLICATION & REVISION, EGD, LASIK EYE SURG, VASEC ALISE. , STATES BILATERAL INGUINAL HERNIA REPAIR. bowel resect Past Anesthesia/Blood Transfusion Reactions: No Reported Reaction Past Psychological History: No Psychological Hx Reported Smoking Status: Never smoker Past Alcohol Use History: None Reported Additional Past Alcohol Use History / Comment(s): Patient reports that he would smoke cigars Past Drug Use History: None Reported - Past Family History Mother Family Medical History: No Reported History Medications and Allergies Home Medications Medication Instructions Recorded Confirmed Type Omeprazole [PriLOSEC] 40 mg PO DAILY 03/18/16 06/01/20 History Aspirin EC [Ecotrin Low Dose] 81 mg PO DAILY 07/29/16 06/01/20 History Folic Acid 1 mg PO DAILY 07/29/16 06/01/20 History Dicyclomine [Bentyl] 20 mg PO QID PRN 04/21/19 06/01/20 History Diphenox-Atrop 2.5-0.025 mg 2 tab PO QID PRN 04/21/19 06/01/20 History [Lomotil] Gabapentin [Neurontin] 600 mg PO BID 04/21/19 06/01/20 History Simvastatin [Zocor] 20 mg PO HS 04/21/19 06/01/20 History DULoxetine HCL [Cymbalta] 60 mg PO BID 04/04/20 06/01/20 History Fluticasone Nasal [place] [Flonase 2 spr EA NOSTRIL DAILY 04/04/20 06/01/20 History Nasal [place]] Magnesium Oxide [Carrasquillo] 500 mg PO DAILY 04/04/20 06/01/20 History Octreotide Acetate,Mi-Spheres 30 mg IM Q28D 04/04/20 06/01/20 History [SandoSTATIN LAR Depot] Potassium Chloride ER [K-Dur 10] 10 meq PO DAILY 04/04/20 06/01/20 History Prevagen 1 tab PO DAILY 04/04/20 06/01/20 History QUEtiapine FUMARATE [QUEtiapine 200 mg PO HS 04/04/20 06/01/20 History FUMARATE ER] Mansoor-Forte 1mg 1 mg PO DAILY 04/04/20 06/01/20 History Ibuprofen [Motrin] 400 mg PO TID PRN #0 04/07/20 06/01/20 Rx Multivitamins, Thera [Multivitamin 1 each PO DAILY@1200 #0 tab 04/07/20 06/01/20 Rx (formulary)] Allergies Allergy/AdvReac Type Severity Reaction Status Date / Time No Known Allergies Allergy Verified 06/01/20 09:19 Physical Exam Vitals: Vital Signs Temp Pulse Pulse Resp BP BP Pulse Ox 06/01/20 11:10 98.1 F 95 18 146/82 97 06/01/20 10:22 98.4 F 98 17 133/82 97 06/01/20 08:58 90 17 140/88 100 06/01/20 07:27 98.1 F 96 19 156/101 100 Intake and Output 05/31/20 06/01/20 06/01/20 22:59 06:59 14:59 Intake Total 400 Balance 400 Intake: Intake, IV Titration 400 Amount Sodium Chloride 0.9% 1, 400 000 ml @ 100 mls/hr IV . Q10H [facility] Rx#:[id number] Other: Weight 63.503 kg Gen: This is a [ ] HEENT: Head is atraumatic, normocephalic. Pupils equal, round. Sclerae is anicteric. NG tube in place NECK: Supple. No JVD. No lymphadenopathy. No thyromegaly. LUNGS: Clear to auscultation. No wheezes or rhonchi. No intercostal retractions. Respirations even and unlabored HEART: Regular rate and rhythm. No murmur. ABDOMEN: Soft, minimal distention. Bowel sounds are hypoactive. No masses. No tenderness. EXTREMITIES: No pedal edema. No calf tenderness. NEUROLOGICAL: Patient is awake, alert and oriented x3. Cranial nerves 2 through 12 are grossly intact. Results CBC & Chem 7: 06/01/20 08:33 06/01/20 08:33 Labs: Abnormal Lab Results - Last 24 Hours (Table) 06/01/20 06/01/20 06/01/20 Range/Units 08:33 08:33 08:33 WBC 14.7 H (3.8-10.6) k/uL RBC 3.61 L (4.30-5.90) m/uL Hgb 11.5 L (13.0-17.5) gm/dL Hct 34.8 L (39.0-53.0) % Neutrophils # 13.3 H (1.3-7.7) k/uL Lymphocytes # 0.8 L (1.0-4.8) k/uL Potassium 5.4 H (3.5-5.1) mmol/L Carbon Dioxide 20 L (22-30) mmol/L BUN 22 H (9-20) mg/dL Creatinine 1.46 H (0.66-1.25) mg/dL Glucose 139 H (74-99) mg/dL Plasma Lactic Acid J Carlos 2.1 H* (0.7-2.0) mmol/L Lipase 19 L (23-300) U/L Thrombosis Risk Factor Assmnt - Choose All That Apply Each Risk Factor Represents 3 Points: Age 75 years or older Thrombosis Risk Factor Assessment Total Risk Factor Score: 3 Thrombosis Risk Factor Assessment Level: Moderate Risk Assessment and Plan Plan: Partial small bowel obstruction: Possibly secondary to adhesions from multiple p revious bowel surgeries. Currently nothing by mouth, bowel being decompressed with NG tube, follow surgery recommendations. Continue symptomatic treatment with antiemetics and analgesics as needed. Continue IV hydration. Hyperkalemia: Most probably secondary to dehydration and acute kidney injury. Potassium is marginally elevated 5.4, I expect to improve with IV hydration. Check BMP tomorrow. Acute kidney injury: Most probably prerenal secondary to volume depletion from nausea vomiting and diarrhea. Continue IV hydration, continue to monitor renal function. Lactic acidosis: secondary to volume depletion, improved with IV hydration Leukocytosis: Most probably reactive, not on antimicrobials at this time, follow-up CBC tomorrow History of chronic diarrhea secondary to carcinoid syndrome: On Ocreotide as outpatient Follows with Dr. Bush, not currently having diarrhea Gastroesophageal reflux disease: Continue PPI Hyperlipidemia: History of colon cancer status post hemicolectomy: Has colostomy Coronary artery disease, history of CABG 3: mood disorder: Continue home dose of Seroquel DVT prophylaxis subcutaneous heparin. We will continue to follow, further recommendations pending clinical course.
[2020-06-01] MEDS: HEPARIN SODIUM,PORCINE 5,000 UNIT/ML 1 ML VIAL SQ SCH (20:45)
[2020-06-01] MEDS: ATORVASTATIN 10 MG TAB PO SCH (20:45)
[2020-06-01] MEDS: QUEtiapine 100 MG TAB PO SCH (20:48)
[2020-06-02] MEDS: HYDROmorphone 0.5 MG/0.5 ML SYRINGE IVP PRN ×6 (01:33→20:00)
[2020-06-02] MEDS: SODIUM CHLORIDE 0.9% 1,000 ML IV SCH ×2 (05:46→15:17)
[2020-06-02] MEDS: HEPARIN SODIUM,PORCINE 5,000 UNIT/ML 1 ML VIAL SQ SCH ×2 (07:41→20:00)
[2020-06-02] MEDS: ASPIRIN 81 MG PO SCH (07:41)
[2020-06-02] MEDS: DULoxetine HCL 60 MG CAPSULE.DR PO SCH ×2 (07:41→20:00)
[2020-06-02] MEDS: FLUTICASONE 50MCG/SPRAY NASAL 16GM EA NOSTRIL SCH (07:41)
[2020-06-02] MEDS: FOLIC ACID 1 MG TAB PO SCH (07:41)
[2020-06-02] MEDS: GABAPENTIN 300 MG CAP PO SCH ×2 (07:41→20:00)
[2020-06-02] MEDS: PANTOPRAZOLE 40 MG/10 ML VIAL IVP SCH (07:42)
[2020-06-02] MEDS: QUEtiapine 100 MG TAB PO SCH ×2 (08:05→20:00)
[2020-06-02 08:11] LABS: HCT 30.8 % (39.0-53.0); HGB 10.4 gm/dL (13.0-17.5); MCH 32.9 pg (25.0-35.0); MCHC 33.7 g/dL (31.0-37.0); MCV 97.7 fL (80.0-100.0); Mean Platelet Volume 7.1; Platelet Count 286 k/uL (150-450); RBC 3.15 m/uL (4.30-5.90); RDW 12.5 % (11.5-15.5); WBC 8.9 k/uL (3.8-10.6)
--- NOTE | 2020-06-02 08:24 | XR ---
EXAMINATION TYPE: XR abdomen 2V DATE OF EXAM: 06/02/2020 COMPARISON: 06/01/2020 INDICATION: Small bowel obstruction TECHNIQUE: Single view abdomen upright view FINDINGS: There is a nonspecific bowel gas pattern. Air appears to be predominantly within the colon. There is some nonspecific air within small bowel loops which are nondilated. Air-fluid levels within the left midabdomen. Psoas margins are normal. No organomegaly is present. Nasogastric tube is present with the tip in the distal esophageal region. This needs to be advanced 2 0 cm. Brachytherapy seeds are present. IMPRESSION: 1. Nonspecific abdomen. 2. Nasogastric tube has been pulled back with the tip in the distal esophagus. This needs be advanced for more typical positioning.
[2020-06-02 08:49] LABS: Calcium 8.2 mg/dL (8.4-10.2); Potassium 4.4 mmol/L (3.5-5.1)
[2020-06-02] MEDS ORDERED: NON FORMULARY DRUG (Prevagen 1 TAB) PO SCH (09:00)
--- NOTE | 2020-06-02 12:42 | P.PN ---
Subjective Progress Note Date: 06/02/20 Principal diagnosis: The patient is seen on rounds. He's feeling better. Passing some gas. No abdominal pain. He's complaining of throat pain and back pain from laying in the bed. Objective - Vital Signs Vital signs: Vital Signs Temp 97.6 F 06/02/20 07:00 Pulse 83 06/02/20 12:04 Resp 18 06/02/20 07:30 BP 123/85 06/02/20 12:04 Pulse Ox 98 06/02/20 07:00 Intake & Output 06/01/20 06/02/20 06/02/20 18:59 06:59 18:59 Intake Total 400 100 Output Total 150 150 Balance 250 -50 Weight 63.503 kg Intake: Intake, IV Titration 400 Amount Sodium Chloride 0.9% 1, 400 000 ml @ 100 mls/hr IV . Q10H [facility] Rx#:[id number] Oral 100 Output: Gastric Drainage 150 150 Other: Voiding Method Urinal Urinal Urinal # Voids 1 1 - Constitutional General appearance: Present: cooperative, no acute distress - Respiratory Respiratory: bilateral: CTA - Gastrointestinal General gastrointestinal: Present: decreased bowel sounds, distended (Distention is improved), soft, tenderness (Very minimal tenderness to deep palpation) - Labs CBC & Chem 7: 06/02/20 07:38 06/02/20 07:38 Labs: Abnormal Lab Results - Last 24 Hours (Table) 06/02/20 06/02/20 Range/Units 07:38 07:38 RBC 3.15 L (4.30-5.90) m/uL Hgb 10.4 L (13.0-17.5) gm/dL Hct 30.8 L (39.0-53.0) % Chloride 111 H (98-107) mmol/L Carbon Dioxide 19 L (22-30) mmol/L Calcium 8.2 L (8.4-10.2) mg/dL - Imaging and Cardiology Abdominal x-ray: report reviewed, image reviewed Assessment and Plan (1) SBO (small bowel obstruction) Current Visit: Yes Status: Acute Code(s): K56.69 - OTHER INTESTINAL OBSTRUCTION * DO NOT USE * SNOMED Code(s): 728747383 (2) Abdominal pain Current Visit: No Status: Acute Code(s): R10.9 - UNSPECIFIED ABDOMINAL PAIN SNOMED Code(s): 11691990 (3) Chronic diarrhea Current Visit: No Status: Acute Code(s): K52.9 - NONINFECTIVE GASTROENTERITIS AND COLITIS, UNSPECIFIED SNOMED Code(s): 228552729 Plan: The patient is symptomatically improved. The NG will be clamped. He'll be given a clear liquid diet. If he is able to tolerate full flow those the NG tube will be removed later today and will advance his diet as tolerated. Currently nonsurgical.
--- NOTE | 2020-06-02 14:50 | P.PN ---
Subjective Progress Note Date: 06/02/20 This is an 79-year-old gentleman admitted with partial small bowel structure multiple other medical issues. Evaluated by surgery, nonsurgical, currently with NG tube decompression. Maintained on IV fluid hydration. Passing flatus, no nausea or emesis. Complains of chronic lower back pain, sinus headache. Diffuse abdominal tenderness. Denies chest pain, palpitations or shortness of breath. GI and DVT prophylaxis with Protonix IV push and heparin subcu. abdominal x-ray reporting nonspecific abdomen, with NG tip needing to be advanced. Objective - Vital Signs Vital signs: Vital Signs Temp 97.6 F 06/02/20 07:00 Pulse 83 06/02/20 12:04 Resp 18 06/02/20 07:30 BP 123/85 06/02/20 12:04 Pulse Ox 98 06/02/20 07:00 Intake & Output 06/01/20 06/02/20 06/02/20 18:59 06:59 18:59 Intake Total 400 100 Output Total 150 150 Balance 250 -50 Weight 63.503 kg Intake: Intake, IV Titration 400 Amount Sodium Chloride 0.9% 1, 400 000 ml @ 100 mls/hr IV . Q10H [facility] Rx#:[id number] Oral 100 Output: Gastric Drainage 150 150 Other: Voiding Method Urinal Urinal Urinal # Voids 1 1 - Exam PHYSICAL EXAM: VITAL SIGNS: As above GENERAL: Standing up next to bedside, no acute distress HEENT: Conjunctivae normal. eyes normal. NG tube present. NECK: No JVD. No thyroid enlargement. No LNs CARDIOVASCULAR: S1, S2 regular. No murmur RESPIRATION: Breath sounds diminished in the bases. No rhonchi or crackles. No bronchial breathing. ABDOMEN: Soft, mild distention, diffuse tenderness, hypoactive bowel sounds heard. LEGS: No edema. no swelling PSYCHIATRY: Alert and oriented X3, mood and affect normal. NERVOUS SYSTEM: Cranial N 2-12 grossly intact. Moves all 4 limbs. No focal deficits. Strength and sensation grossly intact.. Skin: no rash, warm and dry, no calf tenderness - Labs CBC & Chem 7: 06/02/20 07:38 06/02/20 07:38 Labs: Abnormal Lab Results - Last 24 Hours (Table) 06/02/20 06/02/20 Range/Units 07:38 07:38 RBC 3.15 L (4.30-5.90) m/uL Hgb 10.4 L (13.0-17.5) gm/dL Hct 30.8 L (39.0-53.0) % Chloride 111 H (98-107) mmol/L Carbon Dioxide 19 L (22-30) mmol/L Calcium 8.2 L (8.4-10.2) mg/dL Assessment and Plan Assessment: Partial small bowel obstruction, possibly secondary to adhesions from multiple previous bowel surgeries.NPO, bowel decompression via NG tube as per surgery. Hyperkalemia, resolved Acute kidney injury: Most probably prerenal secondary to volume depletion from nausea vomiting and diarrhea, improving. Lactic acidosis: secondary to volume depletion, improved with IV hydration resolve, Leukocytosis: Most probably reactive, resolved Chronic diarrhea secondary to carcinoid syndrome: On Ocreotide as outpatient ,Follows with Dr. Bush. Gastroesophageal reflux disease Hyperlipidemia: Colon cancer, history of hemicolectomy Coronary artery disease, history of CABG 3: mood disorder Plan: Continue on current medication regime ,monitoring and symptomatic treatment. Pain management, NG tube management as per surgery. Maintain IV fluid hydration. Claritin is to med regime. GI and DVT prophylaxis in place. Increase ambulation as tolerated. The impression and plan of care has been dictated as directed. : I performed a history and examination of this patient, discussed the same with the dictator. I agree with the dictator's note ,documented as a scribe. Any additional findings or plans will be noted.
[2020-06-02] MEDS: ATORVASTATIN 10 MG TAB PO SCH (20:00)
[2020-06-02] MEDS ORDERED: LORATADINE 10 MG TAB PO SCH (21:00)
[2020-06-03] MEDS: SODIUM CHLORIDE 0.9% 1,000 ML IV SCH (02:13)
[2020-06-03 08:03] VITALS: BP 175/107; PULSE 117; RESP 16; TEMP 98.9
[2020-06-03 08:17] LABS: Basophils % (A) 1 %; Eosinophils # (A) 0.2 k/uL (0-0.7); Eosinophils % (A) 2 %; HGB 10.2 gm/dL (13.0-17.5); Lymphocytes # (A) 0.9 k/uL (1.0-4.8); Lymphocytes % (A) 12 %; MCH 31.3 pg (25.0-35.0); MCV 97.8 fL (80.0-100.0); Mean Platelet Volume 7.4; Monocytes # (A) 0.2 k/uL (0-1.0); Monocytes % (A) 3 %; Neutrophils # (A) 6.6 k/uL (1.3-7.7); Neutrophils % (A) 82 %; Platelet Count 304 k/uL (150-450); RBC 3.27 m/uL (4.30-5.90); RDW 12.6 % (11.5-15.5)
[2020-06-03] MEDS: ASPIRIN 81 MG PO SCH (08:26)
[2020-06-03] MEDS: PANTOPRAZOLE 40 MG/10 ML VIAL IVP SCH (08:26)
[2020-06-03] MEDS: DULoxetine HCL 60 MG CAPSULE.DR PO SCH (08:26)
[2020-06-03] MEDS: QUEtiapine 100 MG TAB PO SCH (08:26)
[2020-06-03] MEDS: FOLIC ACID 1 MG TAB PO SCH (08:26)
[2020-06-03] MEDS: GABAPENTIN 300 MG CAP PO SCH (08:26)
[2020-06-03] MEDS: FLUTICASONE 50MCG/SPRAY NASAL 16GM EA NOSTRIL SCH (08:27)
[2020-06-03] MEDS: HEPARIN SODIUM,PORCINE 5,000 UNIT/ML 1 ML VIAL SQ SCH (08:27)
[2020-06-03 08:31] LABS: Calcium 8.7 mg/dL (8.4-10.2); Potassium 4.7 mmol/L (3.5-5.1)
[2020-06-03] MEDS ORDERED: NALOXONE 0.4 MG/ML 1 ML VIAL IV PRN (09:45)
--- NOTE | 2020-06-03 10:24 | P.DS ---
Providers Date of admission: 06/01/20 09:30 Expected date of discharge: 06/03/20 Attending physician: Kenneth Luciano MD Consults: 06/01/20 09:30 Consult Physician Urgent Consulting Provider: Ilene Rosales Consult Reason/Comments: SBO Do you want consulting provider notified?: Yes Primary care physician: Gail Tidwell Hospital Course: Final diagnoses Partial small bowel obstruction, possibly secondary to adhesions from multiple previous bowel surgeries.NPO, bowel decompression via NG tube as per surgery. Acute kidney injury: Most probably prerenal secondary to volume depletion from nausea vomiting and diarrhea, improving. Chronic diarrhea secondary to carcinoid syndrome: On Ocreotide as outpatient ,Follows with Dr. Bush. Gastroesophageal reflux disease Hyperlipidemia Colon cancer, history of hemicolectomy Coronary artery disease, history of CABG 3: mood disorder Hospital course:This is an 79-year-old gentleman admitted with partial small bowel structure multiple other medical issues. Evaluated by surgery, nonsurgical, currently with NG tube decompression. Maintained on IV fluid hydration. Passing flatus, no nausea or emesis. Complains of chronic lower back pain, sinus headache. Diffuse abdominal tenderness. Denies chest pain, palpitations or shortness of breath. GI and DVT prophylaxis with Protonix IV push and heparin subcu. abdominal x-ray reporting nonspecific abdomen, with NG tip needing to be advanced. NG tube removed yesterday, no further nausea or vomiting. Tolerating clear liquids. Small bowel movement yesterday. Positive bowel sounds. Denies abdominal pain. Significant clinical improvement. Patient has been cleared by surgeon pending able to tolerate low fiber lunch. Patient will be discharged home today in a stable condition with guarded prognosis after tolerating lunch. The impression and plan of care has been dictated as directed. : I performed a history and examination of this patient, discussed the same with the dictator. I agree with the dictator's note ,documented as a scribe. Any additional findings or plans will be noted. Patient Condition at Discharge: Stable Plan - Discharge Summary Discharge Rx Participant: Yes New Discharge Prescriptions: New Loratadine [Claritin] 10 mg PO HS tab Continue Omeprazole [PriLOSEC] 40 mg PO DAILY Folic Acid 1 mg PO DAILY Aspirin EC [Ecotrin Low Dose] 81 mg PO DAILY Gabapentin [Neurontin] 600 mg PO BID Diphenox-Atrop 2.5-0.025 mg [Lomotil] 2 tab PO QID PRN PRN Reason: Diarrhea Dicyclomine [Bentyl] 20 mg PO QID PRN PRN Reason: IBS Simvastatin [Zocor] 20 mg PO HS QUEtiapine FUMARATE [QUEtiapine FUMARATE ER] 200 mg PO HS Mansoor-Forte 1mg 1 mg PO DAILY DULoxetine HCL [Cymbalta] 60 mg PO BID Magnesium Oxide [Carrasquillo] 500 mg PO DAILY Potassium Chloride ER [K-Dur 10] 10 meq PO DAILY Fluticasone Nasal [place] [Flonase Nasal [place]] 2 spr EA NOSTRIL DAILY Prevagen 1 tab PO DAILY Octreotide Acetate,Mi-Spheres [SandoSTATIN LAR [place]] 30 mg IM Q28D Multivitamins, Thera [Multivitamin (formulary)] 1 each PO DAILY@1200 #0 tab Discontinued Ibuprofen [Motrin] 400 mg PO TID PRN #0 PRN Reason: Pain Discharge Medication List Omeprazole [PriLOSEC] 40 mg PO DAILY 03/18/16 [History] Aspirin EC [Ecotrin Low Dose] 81 mg PO DAILY 07/29/16 [History] Folic Acid 1 mg PO DAILY 07/29/16 [History] Dicyclomine [Bentyl] 20 mg PO QID PRN 04/21/19 [History] Diphenox-Atrop 2.5-0.025 mg [Lomotil] 2 tab PO QID PRN 04/21/19 [History] Gabapentin [Neurontin] 600 mg PO BID 04/21/19 [History] Simvastatin [Zocor] 20 mg PO HS 04/21/19 [History] DULoxetine HCL [Cymbalta] 60 mg PO BID 04/04/20 [History] Fluticasone Nasal [place] [Flonase Nasal [place]] 2 spr EA NOSTRIL DAILY 04/04/20 [History] Magnesium Oxide [[place]] 500 mg PO DAILY 04/04/20 [History] Octreotide Acetate,Mi-Spheres [SandoSTATIN LAR [place]] 30 mg IM Q28D 04/04/20 [History] Potassium Chloride ER [K-Dur 10] 10 meq PO DAILY 04/04/20 [History] Prevagen 1 tab PO DAILY 04/04/20 [History] QUEtiapine FUMARATE [QUEtiapine FUMARATE ER] 200 mg PO HS 04/04/20 [History] Mansoor-Forte 1mg 1 mg PO DAILY 04/04/20 [History] Multivitamins, Thera [Multivitamin (formulary)] 1 each PO DAILY@1200 #0 tab 04/07/20 [Rx] Loratadine [Claritin] 10 mg PO HS tab 06/03/20 [Rx] Follow up Appointment(s)/Referral(s): Kenneth Luciano MD [STAFF PHYSICIAN] - 3 Days Activity/Diet/Wound Care/Special Instructions: Diet: Low fiber
--- NOTE | 2020-06-03 11:45 | P.PN ---
Subjective Progress Note Date: 06/03/20 Principal diagnosis: The patient is seen on rounds. He's feeling better. Passing some gas. No abdominal pain. He's complaining of throat pain and back pain from laying in the bed. The patient is feeling well. He denies abdominal pain. No nausea or vomiting. Tolerating a diet without difficulty. Objective - Vital Signs Vital signs: Vital Signs Temp 98.9 F 06/03/20 07:00 Pulse 117 H 06/03/20 07:00 Resp 16 06/03/20 07:00 BP 175/107 06/03/20 07:00 Pulse Ox 98 06/03/20 07:00 Intake & Output 06/02/20 06/03/20 06/03/20 18:59 06:59 18:59 Intake Total 300 Output Total 300 Balance -300 300 Intake: Intake, IV Titration 300 Amount Sodium Chloride 0.9% 1, 300 000 ml @ 100 mls/hr IV . Q10H [facility] Rx#:[id number] Output: Urine 300 Other: Voiding Method Urinal Urinal # Voids 1 1 - Constitutional General appearance: Present: cooperative, no acute distress - Gastrointestinal General gastrointestinal: Present: normal bowel sounds, soft. Absent: distended, tenderness - Labs CBC & Chem 7: 06/03/20 07:57 06/03/20 07:57 Labs: Abnormal Lab Results - Last 24 Hours (Table) 06/03/20 06/03/20 Range/Units 07:57 07:57 RBC 3.27 L (4.30-5.90) m/uL Hgb 10.2 L (13.0-17.5) gm/dL Hct 32.0 L (39.0-53.0) % Lymphocytes # 0.9 L (1.0-4.8) k/uL Sodium 136 L (137-145) mmol/L Carbon Dioxide 21 L (22-30) mmol/L BUN 8 L (9-20) mg/dL Glucose 190 H (74-99) mg/dL Assessment and Plan (1) SBO (small bowel obstruction) Current Visit: Yes Status: Acute Code(s): K56.69 - OTHER INTESTINAL OBSTRUCTION * DO NOT USE * SNOMED Code(s): 818069550 (2) Abdominal pain Current Visit: No Status: Acute Code(s): R10.9 - UNSPECIFIED ABDOMINAL PAIN SNOMED Code(s): 35848732 (3) Chronic diarrhea Current Visit: No Status: Acute Code(s): K52.9 - NONINFECTIVE GASTROENTERITIS AND COLITIS, UNSPECIFIED SNOMED Code(s): 026613102 Plan: His partial bowel obstruction has resolved. He is surgically stable for discharge. Recommend low fiber diet for 2 weeks. He can follow-up with me as needed.
[2020-06-03] MEDS ORDERED: ACETAMINOPHEN TAB 500 MG TAB PO PRN (12:11)
== END 2020-06-03 13:28 | disposition home or self-care (01) | DRG 389 ==
LOC: EC 07:26 → 4SSUR 09:30
PROVIDERS: ADMIT Family Medicine; ATTEND Family Medicine
DX: K56.51 Intestinal adhesions [bands], with partial obstruction (principal); N17.9 Acute kidney failure, unspecified; E34.0 Carcinoid syndrome; E87.2 Acidosis; K52.9 Noninfective gastroenteritis and colitis, unspecified; K21.9 Gastro-esophageal reflux disease without esophagitis; I25.10 Atherosclerotic heart disease of native coronary artery without angina pectoris; F39 Unspecified mood [affective] disorder; E78.5 Hyperlipidemia, unspecified; I10 Essential (primary) hypertension; E86.0 Dehydration; F17.290 Nicotine dependence, other tobacco product, uncomplicated; E87.5 Hyperkalemia; G89.29 Other chronic pain; M54.5 Low back pain; R07.0 Pain in throat; M19.90 Unspecified osteoarthritis, unspecified site; Z85.46 Personal history of malignant neoplasm of prostate; Z85.828 Personal history of other malignant neoplasm of skin; Z90.49 Acquired absence of other specified parts of digestive tract; Z95.1 Presence of aortocoronary bypass graft; Z79.82 Long term (current) use of aspirin; Z79.899 Other long term (current) drug therapy; Z98.52 Vasectomy status; Z93.3 Colostomy status; Z85.038 Personal history of other malignant neoplasm of large intestine; Z87.19 Personal history of other diseases of the digestive system
CPT/HCPCS: 36415; 74018; 74019; 74176; 80048; 80053; 81003; 82150; 83605; 83690; 85025; 85027; 96361; 96374; 96375; 99285

== ENCOUNTER → 2020-06-20 | Outpatient (CLI) | payer MEDICARE, BC | END | disposition home or self-care (01) | LOC: RADMRIMAIN 15:09 | PROVIDERS: ATTEND Psychiatry & Neurology Neurology | DX: Z53.9 Procedure and treatment not carried out, unspecified reason (principal) ==

== ENCOUNTER 2020-10-30 18:40 | Inpatient (IN) | payer MEDICARE, BC ==
[2020-10-30 19:52] LABS: Basophils % (A) 0 %; Eosinophils % (A) 0 %; HCT 37.8 % (39.0-53.0); HGB 13.2 gm/dL (13.0-17.5); Lymphocytes # (A) 0.8 k/uL (1.0-4.8); Lymphocytes % (A) 7 %; MCH 31.8 pg (25.0-35.0); MCHC 34.8 g/dL (31.0-37.0); MCV 91.3 fL (80.0-100.0); Mean Platelet Volume 6.9; Monocytes # (A) 0.5 k/uL (0-1.0); Monocytes % (A) 4 %; Neutrophils # (A) 9.4 k/uL (1.3-7.7); Neutrophils % (A) 87 %; Platelet Count 185 k/uL (150-450); RBC 4.14 m/uL (4.30-5.90); RDW 12.2 % (11.5-15.5); WBC 10.8 k/uL (3.8-10.6)
[2020-10-30 19:59] LABS: Albumin 4.6 g/dL (3.5-5.0); Calcium 9.8 mg/dL (8.4-10.2); Magnesium 1.6 mg/dL (1.6-2.3); Potassium 5.2 mmol/L (3.5-5.1); Total Bilirubin 0.9 mg/dL (0.2-1.3)
--- NOTE | 2020-10-30 20:08 | XR ---
EXAMINATION TYPE: XR chest 2V DATE OF EXAM: 10/30/2020 COMPARISON: 04/13/2020 HISTORY: Fever TECHNIQUE: FINDINGS: Heart and mediastinum are within normal limits. Lungs are clear. Costophrenic angles are cl ear. There are no hilar masses. There are sternal wires. IMPRESSION: No active cardiopulmonary disease. Normal heart. No change.
--- NOTE | 2020-10-30 20:33 | CT ---
EXAMINATION TYPE: CT brain cspine wo con DATE OF EXAM: 10/30/2020 COMPARISON: 04/04/2020 HISTORY: AMS, fall, fever CT DLP: 1543.3 mGycm Automated exposure control for dose reduction was used. There is cerebral atrophy. There is no mass effect nor midline shift. There is no sign of intracrania l hemorrhage. The calvarium is intact. Skull base is intact. There is normal aeration of the mastoid sinuses. The cervical vertebra have normal alignment. There is spurring anteriorly in the lower cervical spine . The posterior elements are intact. There is no evidence of a fracture. I see no bony destructive pr ocess. Facet joints are intact. There is no evidence of bony destructive process. IMPRESSION: Mild spondylotic changes in the lower cervical spine. Cerebral atrophy. No acute intracranial abnorma lity. Mild chronic small vessel ischemia. No change compared to old exam.
--- NOTE | 2020-10-30 20:34 | ED ---
Fever HPI - General Chief Complaint: Fever Stated Complaint: Sick Time Seen by Provider: 10/30/20 18:45 Source: patient, EMS Mode of arrival: EMS Limitations: altered mental status - History of Present Illness Initial Comments: This 79-year-old male who was sent in for evaluation of confusion and fever. He complained of generalized body aches also. He also fell around 3 PM today this initially was not reported. He denies any head neck or back pain me is a poor historian. He did not seem to have any focal deficits she was brought in by EMS. No reported cough no reported dysuria he denied chest pain or shortness of breath. He did complain some lower abdominal pain MD Complaint: fever, other - Related Data Home Medications Medication Instructions Recorded Confirmed Omeprazole [PriLOSEC] 40 mg PO DAILY 03/18/16 10/30/20 Aspirin EC [Ecotrin Low Dose] 81 mg PO DAILY 07/29/16 10/30/20 Folic Acid 1 mg PO DAILY 07/29/16 10/30/20 Dicyclomine [Bentyl] 20 mg PO QID PRN 04/21/19 10/30/20 Diphenox-Atrop 2.5-0.025 mg 2 tab PO QID PRN 04/21/19 10/30/20 [Lomotil] Gabapentin [Neurontin] 600 mg PO BID 04/21/19 10/30/20 Simvastatin [Zocor] 20 mg PO HS 04/21/19 10/30/20 DULoxetine HCL [Cymbalta] 60 mg PO BID 04/04/20 10/30/20 Fluticasone Nasal [place] [Flonase 2 spr EA NOSTRIL DAILY 04/04/20 10/30/20 Nasal [place]] Magnesium Oxide [[place]] 500 mg PO DAILY 04/04/20 10/30/20 Octreotide Acetate,Mi-Spheres 30 mg IM DIRECTED 04/04/20 10/30/20 [SandoSTATIN [place]] Potassium Chloride ER [K-Dur 10] 10 meq PO DAILY 04/04/20 10/30/20 Prevagen 1 tab PO DAILY 04/04/20 10/30/20 QUEtiapine FUMARATE [QUEtiapine 200 mg PO HS 04/04/20 10/30/20 FUMARATE ER] Mansoor-Forte 1mg 1 mg PO DAILY 04/04/20 10/30/20 Multivitamins, Thera [Multivitamin 1 tab PO DAILY 10/30/20 10/30/20 (formulary)] Octreotide Acetate,Mi-Spheres 10 mg IM DIRECTED 10/30/20 10/30/20 [SandoSTATIN [place]AR [place]] Previous Rx's Medication Instructions Recorded Loratadine [Claritin] 10 mg PO HS tab 06/03/20 Allergies Allergy/AdvReac Type Severity Reaction Status Date / Time No Known Allergies Allergy Verified 10/30/20 18:55 Review of Systems ROS Statement: Those systems with pertinent positive or pertinent negative responses have been documented in the HPI. ROS Other: All systems not noted in ROS Statement are negative. Past Medical History Past Medical History: Coronary Artery Disease (CAD), Cancer, GERD/Reflux, Hyperlipidemia, Hypertension, Osteoarthritis (OA), Prostate Disorder, Syncope Additional Past Medical History / Comment(s): HX OF PROSTATE AND COLON CANCER, SKIN CANCER ON NOSE AND RIGHT EAR, BACK PAIN, chronic diarrhea (8 months). History of sigmoid diverticulosis, ileus, carcinoid syndrome History of Any Multi-Drug Resistant Organisms: None Reported Past Surgical History: Bowel Resection, Cholecystectomy, Coronary Bypass/CABG, Heart Catheterization, Hernia Repair, Prostate Surgery Additional Past Surgical History / Comment(s): X2 PENILE IMPLANT, RADIOACTIVE SE EDS FOR PROSTATE CANCER, FUNDOPLICATION & REVISION, EGD, LASIK EYE SURG, VASECTOMY. , STATES BILATERAL INGUINAL HERNIA REPAIR. bowel resect Past Anesthesia/Blood Transfusion Reactions: No Reported Reaction Past Psychological History: No Psychological Hx Reported Smoking Status: Never smoker Past Alcohol Use History: None Reported Past Drug Use History: None Reported - Past Family History Mother Family Medical History: No Reported History General Exam - General Exam Comments Initial Comments: Is a well-developed well-nourished awake alert somewhat confused male Limitations: altered mental status General appearance: alert, in no apparent distress Head exam: Present: atraumatic, normocephalic, normal inspection Eye exam: Present: normal appearance, PERRL, EOMI. Absent: scleral icterus, conjunctival injection, periorbital swelling ENT exam: Present: mucous membranes dry Neck exam: Present: normal inspection, full ROM, other (No stridor JVD or bruits). Absent: tenderness, meningismus, lymphadenopathy Respiratory exam: Present: normal lung sounds bilaterally. Absent: respiratory distress, wheezes, rales, rhonchi, stridor Cardiovascular Exam: Present: regular rate, normal rhythm, normal heart sounds. Absent: systolic murmur, diastolic murmur, rubs, gallop, clicks GI/Abdominal exam: Present: soft, normal bowel sounds. Absent: distended, tenderness, guarding, rebound, rigid, bruit, pulsatile mass Extremities exam: Present: normal inspection, full ROM, normal capillary refill. Absent: tenderness, pedal edema, joint swelling, calf tenderness Back exam: Present: normal inspection Neurological exam: Present: alert, altered, CN II-XII intact Psychiatric exam: Present: other (Able to fully evaluate) Skin exam: Present: warm, dry, intact, normal color. Absent: rash Course Vital Signs 10/30/20 10/30/20 10/30/20 18:50 19:30 20:00 Temperature 102.8 F H Pulse Rate 103 H 104 H 103 H Respiratory 20 20 16 Rate Blood Pressure 139/80 141/72 132/77 O2 Sat by Pulse 96 95 96 Oximetry 10/30/20 10/30/20 21:00 22:00 Temperature 100.6 F H Pulse Rate 101 H 104 H Respiratory 20 16 Rate Blood Pressure 146/65 154/74 O2 Sat by Pulse 95 96 Oximetry - Reevaluation(s) Reevaluation #1: 10/30/20 22:37 Patient does demonstrate evidence of sepsis criteria he did respond to IV fluids with respect to his mentation he is somewhat improved fever has improved. Lungs were still clear. He was awake alert but still confused somewhat. Medical Decision Making - Medical Decision Making Patient still dose or some evidence of confusion the source for his fever is not been discovered. Patient will be admitted he is on IV antibiotics and fluids. Lactic acid is slightly elevated he is given appropriate IV fluids. Patient will be admitted case discussed with Dr. Luciano - Lab Data Result diagrams: 10/30/20 19:41 10/30/20 19:41 Lab Results 10/30/20 10/30/20 10/30/20 Range/Units 19:41 19:41 19:41 WBC 10.8 H (3.8-10.6) k/uL RBC 4.14 L (4.30-5.90) m/uL Hgb 13.2 (13.0-17.5) gm/dL Hct 37.8 L (39.0-53.0) % MCV 91.3 (80.0-100.0) fL MCH 31.8 (25.0-35.0) pg MCHC 34.8 (31.0-37.0) g/dL RDW 12.2 (11.5-15.5) % Plt Count 185 (150-450) k/uL MPV 6.9 Neutrophils % 87 % Lymphocytes % 7 % Monocytes % 4 % Eosinophils % 0 % Basophils % 0 % Neutrophils # 9.4 H (1.3-7.7) k/uL Lymphocytes # 0.8 L (1.0-4.8) k/uL Monocytes # 0.5 (0-1.0) k/uL Eosinophils # 0.0 (0-0.7) k/uL Basophils # 0.0 (0-0.2) k/uL Sodium 135 L (137-145) mmol/L Potassium 5.2 H (3.5-5.1) mmol/L Chloride 103 (98-107) mmol/L Carbon Dioxide 24 (22-30) mmol/L Anion Gap 8 mmol/L BUN 25 H (9-20) mg/dL Creatinine 1.91 H (0.66-1.25) mg/dL Est GFR (CKD-EPI)AfAm 37 (>60 ml/min/1.73 sqM) Est GFR (CKD-EPI)NonAf 32 (>60 ml/min/1.73 sqM) Glucose 179 H (74-99) mg/dL Plasma Lactic Acid J Carlos (0.7-2.0) mmol/L Calcium 9.8 (8.4-10.2) mg/dL Magnesium 1.6 (1.6-2.3) mg/dL Total Bilirubin 0.9 (0.2-1.3) mg/dL AST 365 H (17-59) U/L ALT 325 H (4-49) U/L Alkaline Phosphatase 349 H (38-126) U/L Ammonia <9 (<30) umol/L Creatine Kinase 98 (55-170) U/L Troponin I (0.000-0.034) ng/mL Total Protein 8.0 (6.3-8.2) g/dL Albumin 4.6 (3.5-5.0) g/dL Urine Color Urine Appearance (Clear) Urine pH (5.0-8.0) Ur Specific [place] (1.001-1.035) Urine Protein (Negative) Urine Glucose (UA) (Negative) Urine Ketones (Negative) Urine Blood (Negative) Urine Nitrite (Negative) Urine Bilirubin (Negative) Urine Urobilinogen (<2.0) mg/dL Ur Leukocyte Esterase (Negative) Urine RBC (0-5) /hpf Urine WBC (0-5) /hpf Urine WBC Clumps (None) /hpf Urine Bacteria (None) /hpf 10/30/20 10/30/20 10/30/20 Range/Units 19:41 19:41 22:06 WBC (3.8-10.6) k/uL RBC (4.30-5.90) m/uL Hgb (13.0-17.5) gm/dL Hct (39.0-53.0) % MCV (80.0-100.0) fL MCH (25.0-35.0) pg MCHC (31.0-37.0) g/dL RDW (11.5-15.5) % Plt Count (150-450) k/uL MPV Neutrophils % % Lymphocytes % % Monocytes % % Eosinophils % % Basophils % % Neutrophils # (1.3-7.7) k/uL Lymphocytes # (1.0-4.8) k/uL Monocytes # (0-1.0) k/uL Eosinophils # (0-0.7) k/uL Basophils # (0-0.2) k/uL Sodium (137-145) mmol/L Potassium (3.5-5.1) mmol/L Chloride (98-107) mmol/L Carbon Dioxide (22-30) mmol/L Anion Gap mmol/L BUN (9-20) mg/dL Creatinine (0.66-1.25) mg/dL Est GFR (CKD-EPI)AfAm (>60 ml/min/1.73 sqM) Est GFR (CKD-EPI)NonAf (>60 ml/min/1.73 sqM) Glucose (74-99) mg/dL Plasma Lactic Acid J Carlos 2.1 H* (0.7-2.0) mmol/L Calcium (8.4-10.2) mg/dL Magnesium (1.6-2.3) mg/dL Total Bilirubin (0.2-1.3) mg/dL AST (17-59) U/L ALT (4-49) U/L Alkaline Phosphatase (38-126) U/L Ammonia (<30) umol/L Creatine Kinase (55-170) U/L Troponin I <0.012 (0.000-0.034) ng/mL Total Protein (6.3-8.2) g/dL Albumin (3.5-5.0) g/dL Urine Color Yellow Urine Appearance Cloudy (Clear) Urine pH 6.0 (5.0-8.0) Ur Specific [place] 1.010 (1.001-1.035) Urine Protein Trace H (Negative) Urine Glucose (UA) Negative (Negative) Urine Ketones Negative (Negative) Urine Blood Negative (Negative) Urine Nitrite Negative (Negative) Urine Bilirubin Negative (Negative) Urine Urobilinogen <2.0 (<2.0) mg/dL Ur Leukocyte Esterase Large H (Negative) Urine RBC 1 (0-5) /hpf Urine WBC 175 H (0-5) /hpf Urine WBC Clumps Many H (None) /hpf Urine Bacteria Moderate H (None) /hpf - EKG Data -: EKG Interpreted by Me EKG Comments: Sinus rhythm 99 MS interval 180 QRS duration 80 QT since QTC 324/4:15 nonspecific T-wave configuration - Radiology Data Radiology results: report reviewed (Imaging reviewed no acute findings seen.), image reviewed Critical Care Time Critical Care Time: Yes Total Critical Care Time: 35 Critical Care Time: Critical care time included initial presentation with history physical labs x- rays multiple reevaluation patient responsive therapy review of old charting was available discussed with the main physician admission orders and documentation the above Disposition Clinical Impression: Sepsis, Urinary tract infection, Dehydration, Febrile illness, acute, Encephalopathy Disposition: ADMITTED IP TO THIS [facility] Condition: Fair Referrals: None,Stated [Primary Care Provider] - 1-2 days
[2020-10-30] MEDS ORDERED: cefTRIAXone IN SWFI 1,000 MG/10 ML SYRINGE IVP STA (20:35)
[2020-10-30] MEDS ORDERED: SODIUM CHLORIDE 0.9% 1,000 ML IV STA ×2 (20:37)
[2020-10-30 22:29] LABS: Appearance,Urine Cloudy (Clear); Bacteria,Urine Moderate /hpf; Bilirubin,Urine Negative (Negative); Blood,Urine Negative (Negative); Color,Urine Yellow; Glucose,Urine (UA) Negative (Negative); Ketones,Urine Negative (Negative); Leukocyte Esterase,Urine Large (Negative); Nitrite,Urine Negative (Negative); Protein,Urine Trace (Negative); RBC,Urine 1 /hpf (0-5); Urobilinogen,Urine <2.0 mg/dL (<2.0); WBC,Urine 175 /hpf (0-5)
[2020-10-30] MEDS ORDERED: ONDANSETRON 4 MG/2 ML VIAL IVP PRN (22:40)
[2020-10-30] MEDS ORDERED: NALOXONE 0.4 MG/ML 1 ML VIAL IV PRN (22:40)
[2020-10-31] MEDS: ACETAMINOPHEN TAB 325 MG TAB PO PRN ×2 (04:32→17:40)
[2020-10-31] MEDS: PANTOPRAZOLE 40 MG/10 ML VIAL IV SCH (08:36)
[2020-10-31] MEDS: ASPIRIN 81 MG PO SCH (08:36)
[2020-10-31] MEDS: MULTIVITAMINS, THERA 1 EACH TAB PO SCH (08:36)
[2020-10-31] MEDS: POTASSIUM CHLORIDE ER 10 MEQ TAB.ER.PRT PO SCH (08:36)
[2020-10-31] MEDS: DULoxetine HCL 60 MG CAPSULE.DR PO SCH ×2 (08:36→21:57)
[2020-10-31] MEDS: FOLIC ACID 1 MG TAB PO SCH (08:36)
[2020-10-31] MEDS: MAGNESIUM OXIDE 400 MG TAB PO SCH (08:36)
[2020-10-31] MEDS: GABAPENTIN 300 MG CAP PO SCH ×2 (08:36→21:57)
[2020-10-31] MEDS: QUEtiapine 100 MG TAB PO SCH ×2 (08:37→21:57)
[2020-10-31] MEDS ORDERED: NON FORMULARY DRUG (Prevagen 1 TAB) PO SCH (09:00)
[2020-10-31] MEDS ORDERED: [UNRECOGNIZED DRUG - OTHER] PO SCH (09:00)
[2020-10-31] MEDS ORDERED: DICYCLOMINE 20 MG TAB PO PRN (09:00)
[2020-10-31] MEDS: polyethylene glycoL 3350 17 GM POWD.PACK PO SCH (09:47)
[2020-10-31 11:31] LABS: Hepatitis A Antibody IgM Non-Reactive (Non-Reactive); Hepatitis B Core IgM Non-Reactive (Non-Reactive); Hepatitis B Surface Antigen Non-Reactive (Non-Reactive); Hepatitis C IgG Antibody Non-Reactive (Non-Reactive)
[2020-10-31] MEDS: ATORVASTATIN 10 MG TAB PO SCH (21:57)
[2020-10-31] MEDS: LORATADINE 10 MG TAB PO SCH (21:57)
--- NOTE | 2020-10-31 22:33 | P.HPIM ---
History of Present Illness H&P Date: 10/31/20 Chief Complaint: fever, weakness Reinier Bajwa is an 79 yo M with PMH CAD, prostate cancer who presented to the ED with weakness fever and chills. He states this had been going on for the past few days, denies cough or sore throat and endorses suprapubic pain and dysuria. He denies nausea or vomiting. On presentation he was febrile and tachycardic, WBC 10.8k, Cr 1.9. UA with large LE and mod bacteria. Pt given IV fluids and rocephin in the ED. Review of Systems All systems: negative Constitutional: Reports fatigue, Reports fever, Reports malaise, Denies chills Eyes: denies blurred vision, denies pain Ears, nose, mouth and throat: Denies headache, Denies sore throat Cardiovascular: Denies chest pain, Denies shortness of breath Respiratory: Denies cough Gastrointestinal: Reports as per HPI, Reports abdominal pain, Denies diarrhea, Denies nausea, Denies vomiting Genitourinary: Reports as per HPI, Reports dysuria Musculoskeletal: Denies myalgias Integumentary: Denies pruritus, Denies rash Neurological: Denies numbness, Denies weakness Psychiatric: Denies anxiety, Denies depression Endocrine: Denies fatigue, Denies weight change Past Medical History Past Medical History: Coronary Artery Disease (CAD), Cancer, GERD/Reflux, Hyperlipidemia, Hypertension, Osteoarthritis (OA), Prostate Disorder, Syncope Additional Past Medical History / Comment(s): HX OF PROSTATE AND COLON CANCER, SKIN CANCER ON NOSE AND RIGHT EAR, BACK PAIN, chronic diarrhea (8 months). History of sigmoid diverticulosis, ileus, carcinoid syndrome History of Any Multi-Drug Resistant Organisms: None Reported Past Surgical History: Bowel Resection, Cholecystectomy, Coronary Bypass/CABG, Heart Catheterization, Hernia Repair, Prostate Surgery Additional Past Surgical History / Comment(s): X2 PENILE IMPLANT, RADIOACTIVE SEEDS FOR PROSTATE CANCER, FUNDOPLICATION & REVISION, EGD, LASIK EYE SURG, VASECTOMY. , STATES BILATERAL INGUINAL HERNIA REPAIR. bowel resect Past Anesthesia/Blood Transfusion Reactions: No Reported Reaction Past Psychological History: No Psychological Hx Reported Smoking Status: Never smoker Past Alcohol Use History: None Reported Additional Past Alcohol Use History / Comment(s): Patient reports that he would smoke cigars Past Drug Use History: None Reported - Past Family History Mother Family Medical History: No Reported History Medications and Allergies Home Medications Medication Instructions Recorded Confirmed Type Omeprazole [PriLOSEC] 40 mg PO DAILY 03/18/16 10/30/20 History Aspirin EC [Ecotrin Low Dose] 81 mg PO DAILY 07/29/16 10/30/20 History Folic Acid 1 mg PO DAILY 07/29/16 10/30/20 History Dicyclomine [Bentyl] 20 mg PO QID PRN 04/21/19 10/30/20 History Diphenox-Atrop 2.5-0.025 mg 2 tab PO QID PRN 04/21/19 10/30/20 History [Lomotil] Gabapentin [Neurontin] 600 mg PO BID 04/21/19 10/30/20 History Simvastatin [Zocor] 20 mg PO HS 04/21/19 10/30/20 History DULoxetine HCL [Cymbalta] 60 mg PO BID 04/04/20 10/30/20 History Fluticasone Nasal [place] [Flonase 2 spr EA NOSTRIL DAILY 04/04/20 10/30/20 History Nasal [place]] Magnesium Oxide [[place]] 500 mg PO DAILY 04/04/20 10/30/20 History Octreotide Acetate,Mi-Spheres 30 mg IM Q30D 04/04/20 10/31/20 History [SandoSTATIN [place]] Potassium Chloride ER [K-Dur 10] 10 meq PO DAILY 04/04/20 10/30/20 History Prevagen 1 tab PO DAILY 04/04/20 10/30/20 History QUEtiapine FUMARATE [QUEtiapine 200 mg PO HS 04/04/20 10/30/20 History FUMARATE ER] Mansoor-Forte 1mg 1 mg PO DAILY 04/04/20 10/30/20 History Loratadine [Claritin] 10 mg PO HS tab 06/03/20 10/30/20 Rx Multivitamins, Thera [Multivitamin 1 tab PO DAILY 10/30/20 10/30/20 History (formulary)] Octreotide Acetate,Mi-Spheres 10 mg IM Q30D 10/30/20 10/31/20 History [SandoSTATIN [place]] Allergies Allergy/AdvReac Type Severity Reaction Status Date / Time No Known Allergies Allergy Verified 10/30/20 18:55 Physical Exam Vitals: Vital Signs Temp Pulse Resp BP BP Pulse Ox 10/31/20 19:55 99.0 F 94 16 101/60 98 10/31/20 14:00 99.4 F 79 18 113/65 94 L 10/31/20 07:07 98.4 F 84 20 146/94 98 10/31/20 01:00 102.7 F H 56 L 18 119/61 92 L 10/31/20 00:04 100 F H 19 105/66 97 Intake and Output 10/31/20 10/31/20 10/31/20 06:59 14:59 22:59 Intake Total 120 1610 Output Total 475 Balance -355 1610 Intake: Intake, IV Titration 1610 Amount Sodium Chloride 0.9% 1, 1560 000 ml @ 130 mls/hr IV . Q7H42M [facility] Rx#:[id number] cefTRIAXone 1 gm In 50 Sodium Chloride 0.9% 50 ml @ 100 mls/hr IVPB Q24HR [facility] Rx#:[id number] Oral 120 Output: Urine 475 Other: Voiding Method Urinal # Voids 1 Weight 65.771 kg General: well nourished, well developed, NAD. Vitals reviewed Eyes: PERRL, EOMI, conjunctiva normal HENT: normocephalic, mucus membranes moist Neck: supple, no JVD Lungs: normal respiratory effort, no wheezes or rales CV: Regular rate and rhythm, no murmur. Peripheral pulses 2+ Abdomen: soft, nondistended, no organomegaly. Tenderness suprapubic Lymph: no cervical or axillary LAD Skin: warm and dry. Neuro: A&Ox3, normal mood and affect Results CBC & Chem 7: 10/30/20 19:41 10/30/20 19:41 Labs: Abnormal Lab Results - Last 24 Hours (Table) 10/30/20 10/31/20 10/31/20 Range/Units 22:06 00:23 04:37 Plasma Lactic Acid J Carlos 2.8 H* 2.4 H* (0.7-2.0) mmol/L Urine Protein Trace H (Negative) Ur Leukocyte Esterase Large H (Negative) Urine WBC 175 H (0-5) /hpf Urine WBC Clumps Many H (None) /hpf Urine Bacteria Moderate H (None) /hpf 10/31/20 Range/Units 09:04 Plasma Lactic Acid J [place] 2.4 H* (0.7-2.0) mmol/L Urine Protein (Negative) Ur Leukocyte Esterase (Negative) Urine WBC (0-5) /hpf Urine WBC Clumps (None) /hpf Urine Bacteria (None) /hpf Microbiology - Last 24 Hours (Table) 10/30/20 19:41 Blood Culture - Preliminary Blood No Growth after 24 hours 10/30/20 22:06 Urine Culture - Preliminary Urine,Voided Thrombosis Risk Factor Assmnt - Choose All That Apply Each Risk Factor Represents 3 Points: Age 75 years or older Other congenital or acquired thrombophilia - If yes, enter type in comment: No Thrombosis Risk Factor Assessment Total Risk Factor Score: 3 Thrombosis Risk Factor Assessment Level: Moderate Risk Assessment and Plan (1) Severe sepsis Current Visit: Yes Status: Acute Code(s): A41.9 - SEPSIS, UNSPECIFIED ORGANISM; R65.20 - SEVERE SEPSIS WITHOUT SEPTIC SHOCK SNOMED Code(s): 82150873 (2) Sepsis due to gram-negative UTI Current Visit: Yes Status: Acute Code(s): A41.50 - GRAM-NEGATIVE SEPSIS, UNSPECIFIED; N39.0 - URINARY TRACT INFECTION, SITE NOT SPECIFIED SNOMED Code(s): 343841284 (3) Acute kidney injury Current Visit: Yes Status: Acute Code(s): N17.9 - ACUTE KIDNEY FAILURE, UNSPECIFIED SNOMED Code(s): 97588468 (4) Coronary artery disease Current Visit: Yes Status: Acute Code(s): I25.10 - ATHSCL HEART DISEASE OF [place] CORONARY ARTERY W/O ANG PCTRS SNOMED Code(s): 99972493 Plan: 1. Severe sepsis secondary to UTI. Start IV rocephin, follow blood and urine cultures. Daily labs 2. Acute kidney injury. Start IV fluids 3. Depression. Continue home seorquel 4. HLD. Continue lipitor
[2020-11-01 06:52] LABS: HCT 37.5 % (39.0-53.0); HGB 12.6 gm/dL (13.0-17.5); MCH 32.3 pg (25.0-35.0); MCHC 33.6 g/dL (31.0-37.0); MCV 96.1 fL (80.0-100.0); Mean Platelet Volume 7.1; Platelet Count 154 k/uL (150-450); RDW 12.2 % (11.5-15.5); WBC 13.3 k/uL (3.8-10.6)
[2020-11-01] MEDS: ASPIRIN 81 MG PO SCH (07:59)
[2020-11-01] MEDS: DULoxetine HCL 60 MG CAPSULE.DR PO SCH ×2 (07:59→20:35)
[2020-11-01] MEDS: POTASSIUM CHLORIDE ER 10 MEQ TAB.ER.PRT PO SCH (07:59)
[2020-11-01] MEDS: FOLIC ACID 1 MG TAB PO SCH (07:59)
[2020-11-01] MEDS: MAGNESIUM OXIDE 400 MG TAB PO SCH (07:59)
[2020-11-01] MEDS: GABAPENTIN 300 MG CAP PO SCH ×2 (07:59→20:35)
[2020-11-01] MEDS: MULTIVITAMINS, THERA 1 EACH TAB PO SCH (07:59)
[2020-11-01] MEDS: PANTOPRAZOLE 40 MG/10 ML VIAL IV SCH (08:00)
[2020-11-01] MEDS: polyethylene glycoL 3350 17 GM POWD.PACK PO SCH (08:00)
--- NOTE | 2020-11-01 12:07 | P.PN ---
Subjective As per records: Reinier Bajwa is an 79 yo M with H CAD, prostate cancer who presented to the ED with weakness fever and chills. He states this had been going on for the past few days, denies cough or sore throat and endorses suprapubic pain and dysuria. He denies nausea or vomiting. On presentation he was febrile and tachycardic, WBC 10.8k, Cr 1.9. UA with large LE and mod bacteria. Pt given IV fluids and rocephin in the ED. 11/01/2020 This is a pleasant 79 years old male with multiple medical problems including coronary artery disease, hyperlipidemia, hypertension, osteoarthritis, GERD, syncope, history of prostate and colon cancer, chronic diarrhea for 8 months, history of sigmoid diverticulosis and ileus and carcinoid syndrome, he has history of bypass surgery Patient could not tell me why he came to the hospital As per documents he came because of fever, confusion. CT and abdominal pain on admission he had a fever of 102.8 patient is complaining of from left side suprapubic pain rather than left lower quadrant, also is complaining of from diarrhea for 3-4 times per day, there is no blood in it and looks like hard chunks. Also is complaining of from pain while urination, however since morning he did not have bowel movement, he states that he has low appetite but no nausea vomiting He denies respiratory symptoms like no chest pain or dyspnea or coughing. He complains from dysuria though. He had fever of 102.7 yesterday Labs on 4 center leukocytosis today of 13.2. BNP on admission showing potassium 5.2 and creatinine 1.9, no repeat labs today. Liver enzymes is elevated to 365 and 325 for a else T and ALT are respectively. Ammonia is less than 9. Troponin is negative. Lactic acid is elevated 2.8 came back to normal today Urine analysis is suspicious for infection, however her urine culture is negative. We going to repeat urinalysis and urine culture Patient is already started on Rocephin Objective - Vital Signs Vital signs: Vital Signs Temp 98.8 F 11/01/20 06:57 Pulse 99 11/01/20 06:57 Resp 17 11/01/20 06:57 BP 127/75 11/01/20 06:57 Pulse Ox 93 L 11/01/20 06:57 Intake & Output 10/31/20 11/01/20 11/01/20 18:59 06:59 18:59 Intake Total 1610 Balance 1610 Intake: Intake, IV Titration 1610 Amount Sodium Chloride 0.9% 1, 1560 000 ml @ 130 mls/hr IV . Q7H42M [facility] Rx#:[id number] cefTRIAXone 1 gm In 50 Sodium Chloride 0.9% 50 ml @ 100 mls/hr IVPB Q24HR [facility] Rx#:[id number] Other: Voiding Method Urinal Toilet Urinal Diaper # Voids 1 - Exam GENERAL: The patient is alert and oriented x3, not in any acute distress. Well developed, well nourished. HEENT: Pupils are round and equally reacting to light. EOMI. No scleral icterus. No conjunctival pallor. Normocephalic, atraumatic. No pharyngeal erythema. No thyromegaly. CARDIOVASCULAR: S1 and S2 present. No murmurs, rubs, or gallops. PULMONARY: Chest is clear to auscultation, no wheezing or crackles. ABDOMEN: Soft, suprapubic tenderness, nondistended, normoactive bowel sounds. No palpable organomegaly. MUSCULOSKELETAL: No joint swelling or deformity. EXTREMITIES: No cyanosis, clubbing, or pedal edema. NEUROLOGICAL: Gross neurological examination did not reveal any focal deficits. SKIN: No rashes. no petechiae. - Labs CBC & Chem 7: 11/01/20 06:35 10/30/20 19:41 Labs: Abnormal Lab Results - Last 24 Hours (Table) 11/01/20 Range/Units 06:35 WBC 13.3 H (3.8-10.6) k/uL RBC 3.90 L (4.30-5.90) m/uL Hgb 12.6 L (13.0-17.5) gm/dL Hct 37.5 L (39.0-53.0) % Microbiology - Last 24 Hours (Table) 10/30/20 22:06 Urine Culture - Final Urine,Voided 10/30/20 20:43 Blood Culture - Preliminary Blood No Growth after 24 hours 10/30/20 19:41 Blood Culture - Preliminary Blood No Growth after 24 hours Assessment and Plan Assessment: Sepsis with leukocytosis and fever Acute urinary tract infection, with suprapubic tenderness Elevated liver enzymes Acute kidney injury Metabolic encephalopathy Hypertension Hyperlipidemia Coronary artery disease status post bypass surgery Osteoarthritis History of GERD History of prostate and colon cancer Chronic diarrhea for 8 months History of sigmoid diverticulosis and ileus History of carcinoid syndrome Plan: This is a pleasant 79 years old male who presents with UTI and metabolic encephalopathy. Continue with ceftriaxone. Repeat urinalysis. Follow-up blood culture. Restart with IV fluids Repeat BMp. Check liver and renal ultrasound. Check broke calcitonin and hepatitis panel Labs and medication were reviewed.. Continue same treatment. Continue with symptomatic treatment. Resume home medication. Monitor lytes and vitals. DVT and GI prophylaxis. Further recommendationsas per clinical course of the patient DVT prophylaxis: Subcutaneous heparin GI Prophylaxis: Ppi PT/OT: Pending Prognosis is guarded
[2020-11-01] MEDS: DEXTROSE 5%-0.9% NACL 1,000 ML IV SCH (17:39)
[2020-11-01 18:17] LABS: Appearance,Urine Clear (Clear); Bilirubin,Urine Negative (Negative); Blood,Urine Negative (Negative); Color,Urine Yellow; Glucose,Urine (UA) Negative (Negative); Ketones,Urine Negative (Negative); Leukocyte Esterase,Urine Small (Negative); Nitrite,Urine Negative (Negative); Protein,Urine Trace (Negative); RBC,Urine 1 /hpf (0-5); Specific Gravity,Urine 1.012 (1.001-1.035); WBC,Urine 13 /hpf (0-5)
[2020-11-01] MEDS: ATORVASTATIN 10 MG TAB PO SCH (20:34)
[2020-11-01] MEDS: HEPARIN SODIUM,PORCINE 5,000 UNIT/ML 1 ML VIAL SQ SCH (20:35)
[2020-11-01] MEDS: LORATADINE 10 MG TAB PO SCH (20:35)
[2020-11-01] MEDS: ACETAMINOPHEN TAB 325 MG TAB PO PRN (20:35)
[2020-11-01] MEDS: QUEtiapine 200 MG TAB PO SCH (20:44)
[2020-11-02] MEDS: DEXTROSE 5%-0.9% NACL 1,000 ML IV SCH ×2 (00:56→15:35)
[2020-11-02 07:02] LABS: Basophils % (A) 1 %; Eosinophils # (A) 0.2 k/uL (0-0.7); Eosinophils % (A) 3 %; HCT 35.7 % (39.0-53.0); HGB 12.5 gm/dL (13.0-17.5); Lymphocytes # (A) 1.6 k/uL (1.0-4.8); Lymphocytes % (A) 21 %; MCHC 34.9 g/dL (31.0-37.0); MCV 91.6 fL (80.0-100.0); Mean Platelet Volume 8.6; Monocytes # (A) 0.5 k/uL (0-1.0); Monocytes % (A) 7 %; Neutrophils % (A) 67 %; Platelet Count 149 k/uL (150-450); RDW 12.1 % (11.5-15.5); WBC 7.6 k/uL (3.8-10.6)
--- NOTE | 2020-11-02 08:38 | US ---
EXAMINATION TYPE: US abd limited kidneys/bladder DATE OF EXAM: 11/02/2020 COMPARISON: CT abdomen pelvis 06/01/2020 CLINICAL HISTORY: Combined liver and renal ultrasound. Cholecystectomy, UTI, elevated liver enzymes EXAM MEASUREMENTS: Liver Length: 14.5 cm Gallbladder Wall: Surgically absent CBD: 0.9 cm. Right Kidney: 9.4 x 5.4 x 4.8 cm Left Kidney: 12.0 x 5.0 x 4.2 cm Technical limitations due to large amount of overlying bowel content Pancreas: Obscured by bowel gas Liver: only seen intercostally Gallbladder: Surgically absent CBD: appears wnl Right Kidney: no evidence of hydronephrosis Left Kidney: prominent collecting system Bladder: Sonolucent. There is an adjacent anechoic area noted with mass-like area anterior portion = 1.5cm. 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 Bilateral Jets Seen no IMPRESSION: 1. Mild left renal collecting system prominence. 2. 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
[2020-11-02 09:02] LABS: African American GFR (CKD) 59.7 (60.0-200.0); Albumin 3.7 g/dL (3.80-4.90); Albumin/Globulin Ratio 1.76 (1.60-3.17); Anion Gap 8.9 mmol/L (4.00-12.00); BUN/Creat Ratio 10.77 Ratio (12.00-20.00); Bilirubin, Conjugated 0.2 mg/dL (0.20-0.40); Bilirubin,Unconjugated 0.3 mg/dL; Calcium 8.4 mg/dL (8.7-10.3); Carbon Dioxide 19.1 mmol/L (21.6-31.8); Globulin 2.1 g/dL (1.6-3.3); Non-African American GFR(CKD) 51.5 (60.0-200.0); Potassium 4.8 mmol/L (3.5-5.5); Total Bilirubin 0.5 mg/dL (0.2-1.2); Total Protein 5.8 g/dL (6.2-8.2)
[2020-11-02] MEDS: polyethylene glycoL 3350 17 GM POWD.PACK PO SCH (09:22)
[2020-11-02] MEDS: MAGNESIUM OXIDE 400 MG TAB PO SCH (09:23)
[2020-11-02] MEDS: POTASSIUM CHLORIDE ER 10 MEQ TAB.ER.PRT PO SCH (09:23)
[2020-11-02] MEDS: DULoxetine HCL 60 MG CAPSULE.DR PO SCH ×2 (09:23→20:46)
[2020-11-02] MEDS: ASPIRIN 81 MG PO SCH (09:23)
[2020-11-02] MEDS: GABAPENTIN 300 MG CAP PO SCH ×2 (09:23→20:46)
[2020-11-02] MEDS: FOLIC ACID 1 MG TAB PO SCH (09:23)
[2020-11-02] MEDS: MULTIVITAMINS, THERA 1 EACH TAB PO SCH (09:23)
[2020-11-02] MEDS: HEPARIN SODIUM,PORCINE 5,000 UNIT/ML 1 ML VIAL SQ SCH ×2 (09:24→20:46)
[2020-11-02] MEDS: PANTOPRAZOLE 40 MG/10 ML VIAL IV SCH (09:25)
--- NOTE | 2020-11-02 13:49 | P.PN ---
Subjective As per records: Reinier Bajwa is an 79 yo M with H CAD, prostate cancer who presented to the ED with weakness fever and chills. He states this had been going on for the past few days, denies cough or sore throat and endorses suprapubic pain and dysuria. He denies nausea or vomiting. On presentation he was febrile and tachycardic, WBC 10.8k, Cr 1.9. UA with large LE and mod bacteria. Pt given IV fluids and rocephin in the ED. 11/01/2020 This is a pleasant 79 years old male with multiple medical problems including coronary artery disease, hyperlipidemia, hypertension, osteoarthritis, GERD, syncope, history of prostate and colon cancer, chronic diarrhea for 8 months, history of sigmoid diverticulosis and ileus and carcinoid syndrome, he has history of bypass surgery Patient could not tell me why he came to the hospital As per documents he came because of fever, confusion. CT and abdominal pain on admission he had a fever of 102.8 patient is complaining of from left side suprapubic pain rather than left lower quadrant, also is complaining of from diarrhea for 3-4 times per day, there is no blood in it and looks like hard chunks. Also is complaining of from pain while urination, however since morning he did not have bowel movement, he states that he has low appetite but no nausea vomiting He denies respiratory symptoms like no chest pain or dyspnea or coughing. He complains from dysuria though. He had fever of 102.7 yesterday Labs on 4 center leukocytosis today of 13.2. BNP on admission showing potassium 5.2 and creatinine 1.9, no repeat labs today. Liver enzymes is elevated to 365 and 325 for a else T and ALT are respectively. Ammonia is less than 9. Troponin is negative. Lactic acid is elevated 2.8 came back to normal today Urine analysis is suspicious for infection, however her urine culture is negative. We going to repeat urinalysis and urine culture Patient is already started on Rocephin 11/02/2020 Patient is lying in bed, fully awake and oriented to time place and person, he still a little bit confused around his health but is oriented to most of the surrounding and it looks better than yesterday and I think he is improving. He had low-grade temperature yesterday of 99.8. Leukocytosis is improved down to 7.6K compared to 13.3 yesterday. Liver enzymes are trending down. This provedcalcitonin is still elevated 0.4 Creatinine is back at the reference range at 1.3. Most of the cultures showing no growth, there is one repeat urine cultures pending. Blood culture showing no growth in 48 hours. Abdominal ultrasound: Left kidney showing prominent collecting system and the bladder there is adjacent an anechoic area with masslike area anterior portion 1.5 cm. 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 Gallbladder is surgically absent CBD appears within normal limits. Objective - Vital Signs Vital signs: Vital Signs Temp 98.3 F 11/02/20 07:37 Pulse 76 11/02/20 07:37 Resp 17 11/02/20 07:37 BP 141/83 11/02/20 07:37 Pulse Ox 98 11/02/20 07:37 Intake & Output 11/01/20 11/02/20 11/02/20 18:59 06:59 18:59 Output Total 600 Balance -600 Output: Urine 600 Other: Voiding Method Toilet Urinal Diaper # Voids 2 2 # Bowel Movements 0 - Exam GENERAL: The patient is alert and oriented x3, not in any acute distress. Well developed, well nourished. HEENT: Pupils are round and equally reacting to light. EOMI. No scleral icterus. No conjunctival pallor. Normocephalic, atraumatic. No pharyngeal erythema. No thyromegaly. CARDIOVASCULAR: S1 and S2 present. No murmurs, rubs, or gallops. PULMONARY: Chest is clear to auscultation, no wheezing or crackles. ABDOMEN: Soft, suprapubic tenderness, nondistended, normoactive bowel sounds. No palpable organomegaly. MUSCULOSKELETAL: No joint swelling or deformity. EXTREMITIES: No cyanosis, clubbing, or pedal edema. NEUROLOGICAL: Gross neurological examination did not reveal any focal deficits. SKIN: No rashes. no petechiae. - Labs CBC & Chem 7: 11/02/20 05:37 11/02/20 05:37 Labs: Abnormal Lab Results - Last 24 Hours (Table) 11/01/20 11/02/20 11/02/20 Range/Units 17:00 05:37 05:37 RBC (4.30-5.90) m/uL Hgb (13.0-17.5) gm/dL Hct (39.0-53.0) % Plt Count (150-450) k/uL Carbon Dioxide 19.1 L (21.6-31.8) mmol/L Est GFR (CKD-EPI)AfAm 59.7 L (60.0-200.0) Est GFR (CKD-EPI)NonAf 51.5 L (60.0-200.0) BUN/Creatinine Ratio 10.77 L (12.00-20.00) Ratio Glucose 135 H (70-110) mg/dL Calcium 8.4 L (8.7-10.3) mg/dL AST 59 H (14-35) U/L ALT 125 H (10-49) U/L Alkaline Phosphatase 373 H (41-126) U/L Total Protein 5.8 L (6.2-8.2) g/dL Albumin 3.70 L (3.80-4.90) g/dL Procalcitonin 0.24 H (0.02-0.09) ng/mL Urine Protein Trace H (Negative) Ur Leukocyte Esterase Small H (Negative) Urine WBC 13 H (0-5) /hpf 11/02/20 Range/Units 05:37 RBC 3.90 L (4.30-5.90) m/uL Hgb 12.5 L (13.0-17.5) gm/dL Hct 35.7 L (39.0-53.0) % Plt Count 149 L (150-450) k/uL Carbon Dioxide (21.6-31.8) mmol/L Est GFR (CKD-EPI)AfAm (60.0-200.0) Est GFR (CKD-EPI)NonAf (60.0-200.0) BUN/Creatinine Ratio (12.00-20.00) Ratio Glucose (70-110) mg/dL Calcium (8.7-10.3) mg/dL AST (14-35) U/L ALT (10-49) U/L Alkaline Phosphatase (41-126) U/L Total Protein (6.2-8.2) g/dL Albumin (3.80-4.90) g/dL Procalcitonin (0.02-0.09) ng/mL Urine Protein (Negative) Ur Leukocyte Esterase (Negative) Urine WBC (0-5) /hpf Microbiology - Last 24 Hours (Table) 11/01/20 17:00 Urine Culture - Preliminary Urine,Voided 10/30/20 20:43 Blood Culture - Preliminary Blood No Growth after 48 hours 10/30/20 19:41 Blood Culture - Preliminary Blood No Growth after 48 hours Assessment and Plan Assessment: Sepsis with leukocytosis and fever may improving Acute urinary tract infection, with suprapubic tenderness. Ultrasound:Left kidney showing prominent collecting system and the bladder there is adjacent an anechoic area with masslike area anterior portion 1.5 cm. 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 If her ultrasound is negative with no gallbladder as it is surgically absent Acute kidney injury, back to normal Metabolic encephalopathy significantly improved Hypertension Hyperlipidemia Coronary artery disease status post bypass surgery Osteoarthritis History of GERD History of prostate and colon cancer Chronic diarrhea for 8 months History of sigmoid diverticulosis and ileus History of carcinoid syndrome Plan: This is a pleasant 79 years old male who presents with UTI and metabolic encephalopathy. Continue with ceftriaxone. Decrease IV fluids. Consult urologist for penile prosthesis reservoir which could be associated with UTI and suprapubic tenderness Labs and medication were reviewed.. Continue same treatment. Continue with symptomatic treatment. Resume home medication. Monitor lytes and vitals. DVT and GI prophylaxis. Further recommendationsas per clinical course of the patient DVT prophylaxis: Subcutaneous heparin GI Prophylaxis: Ppi PT/OT: Pending Prognosis is guarded
--- NOTE | 2020-11-02 18:48 | P.GSCN ---
History of Present Illness Consult date: 11/02/20 Reason for Consult: UTI Requesting physician: [place] E Sheet History of present illness: The patient is an 79-year-old white female who underwent placement of inflatable penile prosthesis in the remote past. He states that it functions well. He has a history of prostate cancer, treated with breaking therapy. He receives DepoTestosterone injections in our office for treatment of hypogonadism. He was admitted with complaints of fever, chills, and weakness. He has been treated with antibiotics, and his condition has improved. Urinalysis obtained at the time of admission showed evidence of pyuria, but a urine culture was negative. Review of Systems - Constitutional Reports chills, Reports fever, Reports weakness - Genitourinary Denies dysuria, Denies hematuria Past Medical History Past Medical History: Coronary Artery Disease (CAD), Cancer, GERD/Reflux, Hyperlipidemia, Hypertension, Osteoarthritis (OA), Prostate Disorder, Syncope Additional Past Medical History / Comment(s): HX OF PROSTATE AND COLON CANCER, SKIN CANCER ON NOSE AND RIGHT EAR, BACK PAIN, chronic diarrhea (8 months). History of sigmoid diverticulosis, ileus, carcinoid syndrome History of Any Multi-Drug Resistant Organisms: None Reported Past Surgical History: Bowel Resection, Cholecystectomy, Coronary Bypass/CABG, Heart Catheterization, Hernia Repair, Prostate Surgery Additional Past Surgical History / Comment(s): X2 PENILE IMPLANT, RADIOACTIVE SEEDS FOR PROSTATE CANCER, FUNDOPLICATION & REVISION, EGD, LASIK EYE SURG, VASECTOMY. , STATES BILATERAL INGUINAL HERNIA REPAIR. bowel resect Past Anesthesia/Blood Transfusion Reactions: No Reported Reaction Past Psychological History: No Psychological Hx Reported Smoking Status: Never smoker Past Alcohol Use History: None Reported Additional Past Alcohol Use History / Comment(s): Patient reports that he would smoke cigars Past Drug Use History: None Reported - Past Family History Mother Family Medical History: No Reported History Medications and Allergies Home Medications Medication Instructions Recorded Confirmed Type Omeprazole [PriLOSEC] 40 mg PO DAILY 03/18/16 10/30/20 History Aspirin EC [Ecotrin Low Dose] 81 mg PO DAILY 07/29/16 10/30/20 History Folic Acid 1 mg PO DAILY 07/29/16 10/30/20 History Dicyclomine [Bentyl] 20 mg PO QID PRN 04/21/19 10/30/20 History Diphenox-Atrop 2.5-0.025 mg 2 tab PO QID PRN 04/21/19 10/30/20 History [Lomotil] Gabapentin [Neurontin] 600 mg PO BID 04/21/19 10/30/20 History Simvastatin [Zocor] 20 mg PO HS 04/21/19 10/30/20 History DULoxetine HCL [Cymbalta] 60 mg PO BID 04/04/20 10/30/20 History Fluticasone Nasal [place] [Flonase 2 spr EA NOSTRIL DAILY 04/04/20 10/30/20 History Nasal [place]] Magnesium Oxide [[place]] 500 mg PO DAILY 04/04/20 10/30/20 History Octreotide Acetate,Mi-Spheres 30 mg IM Q30D 04/04/20 10/31/20 History [SandoSTATIN [place]] Potassium Chloride ER [K-Dur 10] 10 meq PO DAILY 04/04/20 10/30/20 History Prevagen 1 tab PO DAILY 04/04/20 10/30/20 History QUEtiapine FUMARATE [QUEtiapine 200 mg PO HS 04/04/20 10/30/20 History FUMARATE ER] Mansoor-Forte 1mg 1 mg PO DAILY 04/04/20 10/30/20 History Loratadine [Claritin] 10 mg PO HS tab 06/03/20 10/30/20 Rx Multivitamins, Thera [Multivitamin 1 tab PO DAILY 10/30/20 10/30/20 History (formulary)] Octreotide Acetate,Mi-Spheres 10 mg IM Q30D 10/30/20 10/31/20 History [SandoSTATIN [place]] Allergies Allergy/AdvReac Type Severity Reaction Status Date / Time No Known Allergies Allergy Verified 10/30/20 18:55 Surgical - Exam Vital Signs Temp Pulse Resp BP Pulse Ox 102.8 F H 103 H 20 139/80 96 10/30/20 18:50 10/30/20 18:50 10/30/20 18:50 10/30/20 18:50 10/30/20 18:50 - General well developed, well nourished, no distress - Abdomen Abdomen: soft, non tender, no guarding, no rigid, no rebound - Genitourinary The phallus appears normal, without external lesions. The inflatable penile prosthesis is palpable within the corporal bodies, and the pump is palpable within the scrotum. There is no tenderness or urethral discharge. The testes are atrophic bilaterally. - Psychiatric oriented to time, oriented to person, oriented to place, speech is normal, memory intact Results - Labs 11/02/20 05:37 11/02/20 05:37 Abnormal Lab Results - Last 24 Hours (Table) 11/02/20 11/02/20 11/02/20 Range/Units 05:37 05:37 05:37 RBC 3.90 L (4.30-5.90) m/uL Hgb 12.5 L (13.0-17.5) gm/dL Hct 35.7 L (39.0-53.0) % Plt Count 149 L (150-450) k/uL Carbon Dioxide 19.1 L (21.6-31.8) mmol/L Est GFR (CKD-EPI)AfAm 59.7 L (60.0-200.0) Est GFR (CKD-EPI)NonAf 51.5 L (60.0-200.0) BUN/Creatinine Ratio 10.77 L (12.00-20.00) Ratio Glucose 135 H (70-110) mg/dL Calcium 8.4 L (8.7-10.3) mg/dL AST 59 H (14-35) U/L ALT 125 H (10-49) U/L Alkaline Phosphatase 373 H (41-126) U/L Total Protein 5.8 L (6.2-8.2) g/dL Albumin 3.70 L (3.80-4.90) g/dL Procalcitonin 0.24 H (0.02-0.09) ng/mL Microbiology - Last 24 Hours (Table) 11/01/20 17:00 Urine Culture - Preliminary Urine,Voided 10/30/20 20:43 Blood Culture - Preliminary Blood No Growth after 48 hours 10/30/20 19:41 Blood Culture - Preliminary Blood No Growth after 48 hours Diabetes panel 11/02/20 Range/Units 05:37 Sodium 136 (135-145) mmol/L Potassium 4.8 (3.5-5.5) mmol/L Chloride 108 (96-109) mmol/L Carbon Dioxide 19.1 L (21.6-31.8) mmol/L BUN 14.0 (9.0-27.0) mg/dL Creatinine 1.3 (0.6-1.5) mg/dL Glucose 135 H (70-110) mg/dL Calcium 8.4 L (8.7-10.3) mg/dL AST 59 H (14-35) U/L ALT 125 H (10-49) U/L Alkaline Phosphatase 373 H (41-126) U/L Total Protein 5.8 L (6.2-8.2) g/dL Albumin 3.70 L (3.80-4.90) g/dL Calcium panel 11/02/20 Range/Units 05:37 Calcium 8.4 L (8.7-10.3) mg/dL Albumin 3.70 L (3.80-4.90) g/dL Pituitary panel 11/02/20 Range/Units 05:37 Sodium 136 (135-145) mmol/L Potassium 4.8 (3.5-5.5) mmol/L Chloride 108 (96-109) mmol/L Carbon Dioxide 19.1 L (21.6-31.8) mmol/L BUN 14.0 (9.0-27.0) mg/dL Creatinine 1.3 (0.6-1.5) mg/dL Glucose 135 H (70-110) mg/dL Calcium 8.4 L (8.7-10.3) mg/dL Adrenal panel 11/02/20 Range/Units 05:37 Sodium 136 (135-145) mmol/L Potassium 4.8 (3.5-5.5) mmol/L Chloride 108 (96-109) mmol/L Carbon Dioxide 19.1 L (21.6-31.8) mmol/L BUN 14.0 (9.0-27.0) mg/dL Creatinine 1.3 (0.6-1.5) mg/dL Glucose 135 H (70-110) mg/dL Calcium 8.4 L (8.7-10.3) mg/dL Total Bilirubin 0.5 (0.2-1.2) mg/dL AST 59 H (14-35) U/L ALT 125 H (10-49) U/L Alkaline Phosphatase 373 H (41-126) U/L Total Protein 5.8 L (6.2-8.2) g/dL Albumin 3.70 L (3.80-4.90) g/dL Assessment and Plan (1) Urinary tract infection Current Visit: Yes Status: Acute Code(s): N39.0 - URINARY TRACT INFECTION, SITE NOT SPECIFIED SNOMED Code(s): 05057733 Plan: It is unclear whether or not the patient had a UTI, but unlikely given the negative urine culture result. In any case, I see no evidence of an infected prosthesis. Consider empiric UTI treatment. The patient will follow up with me as an outpatient. Time with Patient: Less than 30
[2020-11-02] MEDS: ACETAMINOPHEN TAB 325 MG TAB PO PRN (19:33)
[2020-11-02] MEDS: LORATADINE 10 MG TAB PO SCH (20:46)
[2020-11-02] MEDS: QUEtiapine 200 MG TAB PO SCH (20:46)
[2020-11-02] MEDS: ATORVASTATIN 10 MG TAB PO SCH (20:46)
[2020-11-03 07:16] VITALS: BP 106/66; PULSE 81; RESP 20; TEMP 98
[2020-11-03] MEDS: GABAPENTIN 300 MG CAP PO SCH (08:04)
[2020-11-03] MEDS: DULoxetine HCL 60 MG CAPSULE.DR PO SCH (08:04)
[2020-11-03] MEDS: ASPIRIN 81 MG PO SCH (08:04)
[2020-11-03] MEDS: MAGNESIUM OXIDE 400 MG TAB PO SCH (08:04)
[2020-11-03] MEDS: HEPARIN SODIUM,PORCINE 5,000 UNIT/ML 1 ML VIAL SQ SCH (08:05)
[2020-11-03] MEDS: FOLIC ACID 1 MG TAB PO SCH (08:05)
[2020-11-03] MEDS: POTASSIUM CHLORIDE ER 10 MEQ TAB.ER.PRT PO SCH (08:05)
[2020-11-03] MEDS: MULTIVITAMINS, THERA 1 EACH TAB PO SCH (08:05)
[2020-11-03] MEDS: PANTOPRAZOLE 40 MG/10 ML VIAL IV SCH (08:10)
[2020-11-03] MEDS: DEXTROSE 5%-0.9% NACL 1,000 ML IV SCH (08:10)
[2020-11-03] MEDS: polyethylene glycoL 3350 17 GM POWD.PACK PO SCH (08:13)
[2020-11-03 08:27] LABS: ALT 92 U/L (4-49); AST 49 U/L (17-59); African American GFR (CKD) 72 (>60 ml/min/1.73 sqM); Albumin 3.1 g/dL (3.5-5.0); Albumin/Globulin Ratio 1.1; Alkaline Phosphatase 320 U/L (38-126); Anion Gap 5 mmol/L; Blood Urea Nitrogen 12 mg/dL (9-20); Calcium 8.6 mg/dL (8.4-10.2); Carbon Dioxide 24 mmol/L (22-30); Chloride 107 mmol/L (98-107); Globulin 2.9 g/dL; Glucose 110 mg/dL (74-99); Non-African American GFR(CKD) 62 (>60 ml/min/1.73 sqM); Potassium 4.8 mmol/L (3.5-5.1); Sodium 136 mmol/L (137-145); Total Bilirubin 0.6 mg/dL (0.2-1.3)
[2020-11-03 09:35] LABS: Basophils % (A) 1 %; Eosinophils # (A) 0.2 k/uL (0-0.7); Eosinophils % (A) 4 %; HCT 32.2 % (39.0-53.0); HGB 11.1 gm/dL (13.0-17.5); Lymphocytes # (A) 1.2 k/uL (1.0-4.8); Lymphocytes % (A) 21 %; MCH 31.8 pg (25.0-35.0); MCHC 34.4 g/dL (31.0-37.0); MCV 92.4 fL (80.0-100.0); Monocytes # (A) 0.3 k/uL (0-1.0); Monocytes % (A) 6 %; Neutrophils # (A) 3.8 k/uL (1.3-7.7); Neutrophils % (A) 67 %; Platelet Count 222 k/uL (150-450); RBC 3.49 m/uL (4.30-5.90); RDW 12.2 % (11.5-15.5); WBC 5.6 k/uL (3.8-10.6)
== END 2020-11-03 13:30 | disposition home or self-care (01) | DRG 871 ==
LOC: EC 18:40 → 4SSUR 22:44
PROVIDERS: ADMIT Family Medicine; ATTEND Family Medicine
DX: A41.50 Gram-negative sepsis, unspecified (principal); G93.41 Metabolic encephalopathy; N17.9 Acute kidney failure, unspecified; N39.0 Urinary tract infection, site not specified; E29.1 Testicular hypofunction; E78.5 Hyperlipidemia, unspecified; E86.0 Dehydration; Z87.891 Personal history of nicotine dependence; F32.9 Major depressive disorder, single episode, unspecified; I10 Essential (primary) hypertension; I25.10 Atherosclerotic heart disease of native coronary artery without angina pectoris; K21.9 Gastro-esophageal reflux disease without esophagitis; K52.9 Noninfective gastroenteritis and colitis, unspecified; Z20.822 Contact with and (suspected) exposure to COVID-19; K57.30 Diverticulosis of large intestine without perforation or abscess without bleeding; M19.90 Unspecified osteoarthritis, unspecified site; R65.20 Severe sepsis without septic shock; Z79.82 Long term (current) use of aspirin; Z79.899 Other long term (current) drug therapy; Z85.038 Personal history of other malignant neoplasm of large intestine; Z85.46 Personal history of malignant neoplasm of prostate; Z85.828 Personal history of other malignant neoplasm of skin; Z90.49 Acquired absence of other specified parts of digestive tract; Z95.1 Presence of aortocoronary bypass graft; Z96.0 Presence of urogenital implants; Z92.3 Personal history of irradiation
CPT/HCPCS: 36415; 70450; 71046; 72125; 76705; 76770; 80048; 80053; 80074; 80076; 81001; 82140; 82550; 83605; 83735; 84145; 84484; 85025; 85027; 87040; 87086; 87636; 93005; 96361; 96374; 99291

== ENCOUNTER 2020-11-23 16:00 | Inpatient (IN) | payer MEDICARE, BC ==
[2020-11-23] MEDS ORDERED: SODIUM CHLORIDE 0.9% 500 ML 500 ML IV STA (16:21)
[2020-11-23] MEDS ORDERED: HYDROmorphone 1 MG/ML 1 ML SYRINGE IVP STA ×2 (16:39→18:01)
[2020-11-23] MEDS ORDERED: ONDANSETRON 4 MG/2 ML VIAL IVP STA (16:39)
--- NOTE | 2020-11-23 16:41 | ED ---
General Adult HPI - General Chief complaint: Extremity Injury, Lower Stated complaint: r ankle injury Time Seen by Provider: 11/23/20 16:05 Source: patient, EMS Mode of arrival: EMS Limitations: altered mental status - History of Present Illness Initial comments: Patient is an 80-year-old male with past history of coronary artery disease, hypertension, hyperlipidemia and multiple syncopal episodes who presents to the emergency room after he sustained a syncopal episode. He was at home and this was witnessed by his son. Patient went unresponsive and fell to the ground. Reports that he was only out for several seconds. Patient has been seen in the emergency department previously for syncopal episodes and states that he did have an episode 1 month ago however he did not seek medical care at this time. When patient was arousable he was complaining of right ankle pain and thoracic back pain. He is unsure if he hit his head. Patient is not taking any blood thinners. Denies any recent illnesses. No nausea or vomiting. Denies any chest pain or shortness of breath prior to the incident. No headaches or visual changes. Denies any numbness, tingling or weakness in his upper extremities. Does admit to significant pain in his right ankle which does have obvious deformity. EMS was able to palpate pulses on the patient. No pain medications administered. - Related Data Home Medications Medication Instructions Recorded Confirmed Omeprazole [PriLOSEC] 40 mg PO DAILY 03/18/16 11/23/20 Aspirin EC [Ecotrin Low Dose] 81 mg PO DAILY 07/29/16 11/23/20 Folic Acid 1 mg PO DAILY 07/29/16 11/23/20 Dicyclomine [Bentyl] 20 mg PO QID PRN 04/21/19 11/23/20 Diphenox-Atrop 2.5-0.025 mg 2 tab PO QID PRN 04/21/19 11/23/20 [Lomotil] Gabapentin [Neurontin] 600 mg PO BID 04/21/19 11/23/20 Simvastatin [Zocor] 20 mg PO HS 04/21/19 11/23/20 DULoxetine HCL [Cymbalta] 60 mg PO BID 04/04/20 11/23/20 Fluticasone Nasal [place] [Flonase 2 spr EA NOSTRIL DAILY 04/04/20 11/23/20 Nasal [place]] Magnesium Oxide [[place]] 500 mg PO DAILY 04/04/20 11/23/20 Octreotide Acetate,Mi-Spheres 30 mg IM Q30D 04/04/20 11/23/20 [SandoSTATIN [place]AR [place]] Prevagen 1 tab PO DAILY 04/04/20 11/23/20 QUEtiapine FUMARATE [QUEtiapine 200 mg PO HS 04/04/20 11/23/20 FUMARATE ER] Mansoor-Forte 1mg 1 mg PO DAILY 04/04/20 11/23/20 Multivitamins, Thera [Multivitamin 1 tab PO DAILY 10/30/20 11/23/20 (formulary)] Octreotide Acetate,Mi-Spheres 10 mg IM Q30D 10/30/20 11/23/20 [SandoSTATIN LAR [place]] polyethylene glycoL 3350 [Miralax] 17 gm PO DAILY PRN 11/23/20 11/23/20 Previous Rx's Medication Instructions Recorded Loratadine [Claritin] 10 mg PO HS tab 06/03/20 Allergies Allergy/AdvReac Type Severity Reaction Status Date / Time No Known Allergies Allergy Verified 10/30/20 18:55 Review of Systems ROS Statement: Those systems with pertinent positive or pertinent negative responses have been documented in the HPI. ROS Other: All systems not noted in ROS Statement are negative. Past Medical History Past Medical History: Coronary Artery Disease (CAD), Cancer, GERD/Reflux, Hyperlipidemia, Hypertension, Osteoarthritis (OA), Prostate Disorder, Syncope Additional Past Medical History / Comment(s): HX OF PROSTATE AND COLON CANCER, SKIN CANCER ON NOSE AND RIGHT EAR, BACK PAIN, chronic diarrhea (8 months). History of sigmoid diverticulosis, ileus, carcinoid syndrome History of Any Multi-Drug Resistant Organisms: None Reported Past Surgical History: Bowel Resection, Cholecystectomy, Coronary Bypass/CABG, Heart Catheterization, Hernia Repair, Prostate Surgery Additional Past Surgical History / Comment(s): X2 PENILE IMPLANT, RADIOACTIVE SEEDS FOR PROSTATE CANCER, FUNDOPLICATION & REVISION, EGD, LASIK EYE SURG, VASECTOMY. , STATES BILATERAL INGUINAL HERNIA REPAIR. bowel resect Past Anesthesia/Blood Transfusion Reactions: No Reported Reaction Past Psychological History: No Psychological Hx Reported Smoking Status: Never smoker Past Alcohol Use History: None Reported Past Drug Use History: None Reported - Past Family History Mother Family Medical History: No Reported History General Exam Limitations: no limitations General appearance: alert, in no apparent distress Head exam: Present: atraumatic, normocephalic, normal inspection Eye exam: Present: normal appearance, PERRL, EOMI. Absent: scleral icterus, conjunctival injection, periorbital swelling Pupils: Present: normal accommodation ENT exam: Present: normal exam, mucous membranes moist Neck exam: Present: normal inspection. Absent: tenderness, meningismus, lymp hadenopathy Respiratory exam: Present: normal lung sounds bilaterally. Absent: respiratory distress, wheezes, rales, rhonchi, stridor Cardiovascular Exam: Present: regular rate, normal rhythm, normal heart sounds. Absent: systolic murmur, diastolic murmur, rubs, gallop, clicks GI/Abdominal exam: Present: soft, normal bowel sounds. Absent: distended, tenderness, guarding, rebound, rigid Extremities exam: Present: other (obvious deformity right ankle 2+ DP and PT pusles. tenting of skin medial aspect with ecchymosis. patient able to wiggle toes. decreased rom at ankle due to pain. no tenderness tib/fib, knee, femur) Course Vital Signs 11/23/20 11/23/20 16:02 18:59 Temperature 99.2 F Pulse Rate 81 94 Respiratory 18 18 Rate Blood Pressure 145/92 137/95 O2 Sat by Pulse 100 94 L Oximetry EKG Findings - EKG Comments: EKG Findings:: EKG demonstrates normal sinus rhythm with a ventricular rate of 80. RI 176. QRS 84. QTC of 447. No acute ST segment elevations or depressions Procedures - Orthopedic Fracture Reduction Fracture #1 Consent Obtained: verbal consent Side: right Fracture Reduction Location: tibia, fibula, other (tibiotalar) Technique: direct manipulation Post Reduction X-rays Demonstrate: other Post-Reduction Neuro Exam: intact Post-Reduction Vascular Exam: intact Splint Applied: Yes Patient Tolerated Procedure: well Additional Comments: moderately reduced - concern that further reduction is needed. Medical Decision Making - Medical Decision Making Upon arrival the patient was placed into room 11. A through history and physical exam is performed. He is hooked up to continuous pulse ox and cardiac monitoring. Patient does have palpable pulses in his right lower extremity. He was given 1 mg of Dilaudid. Laboratory studies were conducted. CT of the patient's brain, cervical spine and thoracic spine are performed. Laboratory studies reveal a potassium of 5.6. Creatinine 1.7. Urine demonstrates greater than 182 white blood cells with few bacteria. CT of the brain and cervical spine is performed which demonstrates no acute fracture dislocation any cervical sign. No acute intracranial hemorrhage or mass effect or midline shift. CT of the thoracic spine fails to demonstrate any acute abnormalities. Ankle x-ray demonstrates a distal fibular fracture with tibiotalar dislocation. Suspicious posterior malleolus fracture. Tib-fib and knee x-ray failed to demonstrate any further fractures. Chest x-ray on straits no acute cardiopulmonary process. A ttempted reduction of the patient right ankle is performed 2. The patient was given 2 mg of Ativan and is an additional dose of Dilaudid. Repeat x-rays performed which continues to demonstrate medial displacement. Because of this I did speak with Dr. Stanford who does present to the emergency department and is able to reduce the patient's ankle. He does request CT. Agrees to consult on the patient. Spoke with Dr. Velásquez and Yolanda who agreed to admit the patient for his syncopal episode. Dr. Stanford will contine to be on consult. Patient remained in stable condition and was taken to the floor - Lab Data Result diagrams: 11/24/20 03:14 11/24/20 17:34 Lab Results 11/23/20 11/23/20 11/23/20 Range/Units 16:28 16:28 16:28 WBC 6.5 (3.8-10.6) k/uL RBC 3.75 L (4.30-5.90) m/uL Hgb 11.5 L (13.0-17.5) gm/dL Hct 34.6 L (39.0-53.0) % MCV 92.3 (80.0-100.0) fL MCH 30.8 (25.0-35.0) pg MCHC 33.3 (31.0-37.0) g/dL RDW 13.2 (11.5-15.5) % Plt Count 147 L (150-450) k/uL MPV 8.4 Neutrophils % 65 % Lymphocytes % 27 % Monocytes % 4 % Eosinophils % 2 % Basophils % 1 % Neutrophils # 4.2 (1.3-7.7) k/uL Lymphocytes # 1.8 (1.0-4.8) k/uL Monocytes # 0.2 (0-1.0) k/uL Eosinophils # 0.1 (0-0.7) k/uL Basophils # 0.0 (0-0.2) k/uL PT (9.0-12.0) sec INR (<1.2) APTT (22.0-30.0) sec Sodium 137 (137-145) mmol/L Potassium 5.6 H (3.5-5.1) mmol/L Chloride 106 (98-107) mmol/L Carbon Dioxide 19 L (22-30) mmol/L Anion Gap 12 mmol/L BUN 19 (9-20) mg/dL Creatinine 1.70 H (0.66-1.25) mg/dL Est GFR (CKD-EPI)AfAm 43 (>60 ml/min/1.73 sqM) Est GFR (CKD-EPI)NonAf 37 (>60 ml/min/1.73 sqM) Glucose 79 (74-99) mg/dL Calcium 9.8 (8.4-10.2) mg/dL Total Bilirubin 0.5 (0.2-1.3) mg/dL AST 39 (17-59) U/L ALT 36 (4-49) U/L Alkaline Phosphatase 144 H (38-126) U/L Troponin I <0.012 (0.000-0.034) ng/mL Total Protein 8.1 (6.3-8.2) g/dL Albumin 4.5 (3.5-5.0) g/dL Urine Color Urine Appearance (Clear) Urine pH (5.0-8.0) Ur Specific [place] (1.001-1.035) Urine Protein (Negative) Urine Glucose (UA) (Negative) Urine Ketones (Negative) Urine Blood (Negative) Urine Nitrite (Negative) Urine Bilirubin (Negative) Urine Urobilinogen (<2.0) mg/dL Ur Leukocyte Esterase (Negative) Urine WBC (0-5) /hpf Urine Bacteria (None) /hpf Urine Mucus (None) /hpf 11/23/20 11/23/20 Range/Units 17:35 17:35 WBC (3.8-10.6) k/uL RBC (4.30-5.90) m/uL Hgb (13.0-17.5) gm/dL Hct (39.0-53.0) % MCV (80.0-100.0) fL MCH (25.0-35.0) pg MCHC (31.0-37.0) g/dL RDW (11.5-15.5) % Plt Count (150-450) k/uL MPV Neutrophils % % Lymphocytes % % Monocytes % % Eosinophils % % Basophils % % Neutrophils # (1.3-7.7) k/uL Lymphocytes # (1.0-4.8) k/uL Monocytes # (0-1.0) k/uL Eosinophils # (0-0.7) k/uL Basophils # (0-0.2) k/uL PT 10.8 (9.0-12.0) sec INR 1.0 (<1.2) APTT 22.5 (22.0-30.0) sec Sodium (137-145) mmol/L Potassium (3.5-5.1) mmol/L Chloride (98-107) mmol/L Carbon Dioxide (22-30) mmol/L Anion Gap mmol/L BUN (9-20) mg/dL Creatinine (0.66-1.25) mg/dL Est GFR (CKD-EPI)AfAm (>60 ml/min/1.73 sqM) Est GFR (CKD-EPI)NonAf (>60 ml/min/1.73 sqM) Glucose (74-99) mg/dL Calcium (8.4-10.2) mg/dL Total Bilirubin (0.2-1.3) mg/dL AST (17-59) U/L ALT (4-49) U/L Alkaline Phosphatase (38-126) U/L Troponin I (0.000-0.034) ng/mL Total Protein (6.3-8.2) g/dL Albumin (3.5-5.0) g/dL Urine Color Yellow Urine Appearance Cloudy (Clear) Urine pH 6.0 (5.0-8.0) Ur Specific [place] 1.010 (1.001-1.035) Urine Protein Negative (Negative) Urine Glucose (UA) Negative (Negative) Urine Ketones Negative (Negative) Urine Blood Negative (Negative) Urine Nitrite Negative (Negative) Urine Bilirubin Negative (Negative) Urine Urobilinogen <2.0 (<2.0) mg/dL Ur Leukocyte Esterase Large H (Negative) Urine WBC >182 H (0-5) /hpf Urine Bacteria Few H (None) /hpf Urine Mucus Rare H (None) /hpf Disposition Clinical Impression: Syncope, Closed right ankle fracture Disposition: ADMITTED IP TO THIS HOSP Condition: Stable Is patient prescribed a controlled substance at d/c from ED?: No Decision to Admit Reason: Admit from EC Decision Date: 11/23/20 Decision Time: 19:34
[2020-11-23 16:52] LABS: Basophils % (A) 1 %; Eosinophils # (A) 0.1 k/uL (0-0.7); Eosinophils % (A) 2 %; HCT 34.6 % (39.0-53.0); HGB 11.5 gm/dL (13.0-17.5); Lymphocytes # (A) 1.8 k/uL (1.0-4.8); Lymphocytes % (A) 27 %; MCH 30.8 pg (25.0-35.0); MCHC 33.3 g/dL (31.0-37.0); MCV 92.3 fL (80.0-100.0); Mean Platelet Volume 8.4; Monocytes # (A) 0.2 k/uL (0-1.0); Monocytes % (A) 4 %; Neutrophils # (A) 4.2 k/uL (1.3-7.7); Neutrophils % (A) 65 %; Platelet Count 147 k/uL (150-450); RBC 3.75 m/uL (4.30-5.90); RDW 13.2 % (11.5-15.5); WBC 6.5 k/uL (3.8-10.6)
[2020-11-23 16:58] LABS: Albumin 4.5 g/dL (3.5-5.0); Calcium 9.8 mg/dL (8.4-10.2); Potassium 5.6 mmol/L (3.5-5.1); Total Bilirubin 0.5 mg/dL (0.2-1.3); Total Protein 8.1 g/dL (6.3-8.2)
--- NOTE | 2020-11-23 17:13 | CT ---
EXAMINATION TYPE: CT brain dimitriine wo con DATE OF EXAM: 11/23/2020 COMPARISON: 10/30/2020. HISTORY: Syncope, pain. CT DLP: 1418.2 mGycm Automated exposure control for dose reduction was used. TECHNIQUE: CT scan of the head and cervical spine are performed without contrast. FINDINGS: There is no acute intracranial hemorrhage, mass effect, or midline shift identified. The ventricles and sulci are within normal limits in size. The globes are intact and the visualized sin uses are clear. Cervical spine is visualized in its entirety from C1 through upper thoracic levels and demonstrates s atisfactory alignment without evidence of acute fracture or dislocation. Prevertebral soft tissue ap pears within normal limits. The C1-C2 articulation is unremarkable. There is mild cervical spondylo sis. IMPRESSION: 1. There is no acute fracture or dislocation evident in the cervical spine. 2. No acute intracranial hemorrhage, mass effect, or midline shift is seen.
--- NOTE | 2020-11-23 17:21 | CT ---
EXAMINATION TYPE: CT thoracic spine wo con DATE OF EXAM: 11/23/2020 COMPARISON: None available. HISTORY: Syncope, pain. CT DLP: 1101.4 mGycm Automated exposure control for dose reduction was used. FINDINGS: There is no acute fracture or subluxation of the thoracic spine. The vertebral body heights are gross ly maintained. There is moderate thoracic spondylosis. 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 No si gnificant paravertebral soft tissue abnormality. IMPRESSION: NO ACUTE ABNORMALITY.
[2020-11-23 17:48] LABS: Appearance,Urine Cloudy (Clear); Bacteria,Urine Few /hpf; Bilirubin,Urine Negative (Negative); Blood,Urine Negative (Negative); Color,Urine Yellow; Glucose,Urine (UA) Negative (Negative); Ketones,Urine Negative (Negative); Leukocyte Esterase,Urine Large (Negative); Mucus,Urine Rare /hpf; Nitrite,Urine Negative (Negative); Protein,Urine Negative (Negative); Urobilinogen,Urine <2.0 mg/dL (<2.0); WBC,Urine >182 /hpf (0-5)
--- NOTE | 2020-11-23 17:48 | XR ---
RESULT: HISTORY: trauma, fall with pain. TECHNIQUE: 3 views of the right knee. 2 views of the right tibia and fibula. 2 views of the right ankle. 2 views of the right foot. COMPARISON: None. FINDINGS: Right knee: There is no acute fracture or dislocation. The visualized joint spaces are preserved. Right tibia, fibula, ankle and foot: There is mildly displaced fracture of the distal fibula above th e ankle mortise. There is suspicious fracture of the posterior malleolus. There is anterolateral disl ocation of the tibiotalar joint. Atherosclerotic calcifications are seen. IMPRESSION: Distal fibular fracture with tibiotalar dislocation. Suspicious posterior malleolus fracture. Otherwise no acute fracture of the right knee of foot.
[2020-11-23 17:53] LABS: Partial Thromboplastin Time 22.5 sec (22.0-30.0); Prothrombin Time 10.8 sec (9.0-12.0)
--- NOTE | 2020-11-23 18:15 | XR ---
EXAMINATION TYPE: XR chest 2V DATE OF EXAM: 11/23/2020 COMPARISON: 10/30/2020. HISTORY: Pain status post fall. TECHNIQUE: Frontal and lateral views of the chest are obtained. FINDINGS: There is no focal air space opacity, pleural effusion, or pneumothorax seen. The cardiac silhouette size is within normal limits. CABG is seen. The osseous structures are intact. IMPRESSION: No acute cardiopulmonary process.
[2020-11-23] MEDS ORDERED: LORazepam 2 MG/ML INJ IV STA (18:27)
--- NOTE | 2020-11-23 19:03 | XR ---
RESULT: HISTORY: post reduction TECHNIQUE: 2 views of right ankle were obtained. COMPARISON: Earlier same day. FINDINGS: There is interval reduction and splinting of distal fibular fracture. There is persistent moderate la teral subluxation of the tibiotalar joint and widening of the medial clear space. IMPRESSION: Distal fibular fracture status post reduction and splinting. Persistent lateral subluxation of the tibiotalar joint.
[2020-11-23] MEDS ORDERED: NALOXONE 0.4 MG/ML 1 ML VIAL IV PRN (19:34)
[2020-11-23] MEDS ORDERED: BUPIVACAINE (PF) 0.5% 30 ML VIAL SQ STA (19:39)
--- NOTE | 2020-11-23 20:42 | XR ---
RESULT: HISTORY: post placement TECHNIQUE: 2 views of the right ankle were obtained. COMPARISON: Earlier same day. FINDINGS: There is subsequent reduction and splinting of right distal fibula fracture. There is improvement in anatomic alignment with resolution of previous tibiotalar subluxation. The ankle mortise is congruent . Evaluation of fine bony and soft tissue details is limited due to overlying splint. IMPRESSION: As above.
--- NOTE | 2020-11-23 21:01 | CT ---
Result: History: Right ankle fracture and pain status post fall. Comparison: Same day radiographs. Technique: Noncontrast axial CT images of the right ankle were obtained with images provided in bone and soft tissue algorithm. Coronal, sagittal and 3-D reformats were provided and reviewed. Imaging reduction technique was utilized per protocol. Findings: The bone mineralization is age-appropriate. There is a mildly displaced fracture of the distal fibula just above the ankle mortise. There is a mi ldly displaced posterior malleolus fracture. There are punctate ossific densities adjacent to the med ial malleolus, consistent with chip fracture. There is mild widening of the medial clear space. No ev idence of dislocation. There is soft tissue edema/hematoma about the ankle. There is a splint in place. There is trace amoun t of air within the tibiotalar joint, most compatible with postreduction changes. Impression: Right ankle trimalleolar fracture status post reduction as described. Persistent mild widening of the medial clear space.
--- NOTE | 2020-11-23 21:04 | HP ---
HISTORY AND PHYSICAL DATE OF SERVICE: 11/23/2020 I am covering for Dr. Luciano. CHIEF COMPLAINT: Fall and right leg injury. HISTORY OF PRESENT ILLNESS: This 80-year-old gentleman with a past medical history of multiple medical problems, including CAD, history of GERD, hypertension, hyperlipidemia, being followed by Dr. Luciano in the outpatient setting recently admitted with urinary tract infection with sepsis. Currently the patient was standing in his kitchen. The patient passed out for few minutes and patient also fell. Hit his right foot. The patient was evaluated in the ER with multiple x-rays and CT scan. The CT scan of the head and spine showed no acute changes. The thoracic spine CT was showing no acute abnormality. The ankle x- ray showed distal fibular fracture with tibial calcar dislocation suspicious posterior malleolus fracture. The chest x-ray which was reviewed personally by me showed no acute abnormality. The patient admitted to the hospital for further evaluation and treatment. Lab tucker, the potassium is 5.6, creatinine is 1.70. UA showed possible UTI. There is no history of fever, rigors. No history of headache, loss of consciousness or seizures. PAST MEDICAL HISTORY: History of CAD, GERD, hypertension, hyperlipidemia, history of DJD, history of CAD/CABG. MEDICATIONS: Medications prior to admission home medications are reviewed and include: MiraLAX, Zocor, Seroquel, Sandostatin, Claritin, Lomotil, Bentyl, Prilosec, multivitamins, magnesium, Neurontin, Flonase, Cymbalta. ALLERGIES: None. FAMILY HISTORY: No history of heart disease or strokes in the family. SOCIAL HISTORY: No history of smoking. Occasional alcohol intake. REVIEW OF SYSTEMS: ENT: Diminished vision. Diminished hearing. CARDIOVASCULAR: No angina or palpitations. RESPIRATION: No cough. No hemoptysis. GI no nausea or vomiting. as mentioned earlier. NERVOUS SYSTEM: As mentioned earlier. ALLERGY/IMMUNOLOGY: No asthma, hayfever. MUSCULOSKELETAL: As mentioned earlier. HEMATOLOGY/ONCOLOGY: No history of anemia. ENDOCRINE: No history of diabetes or hypothyroidism. CONSTITUTIONAL: As mentioned earlier. RHEUMATOLOGY: Negative. DERMATOLOGY negative. PSYCHIATRY: As mentioned earlier. PHYSICAL EXAM: Patient is alert, oriented x3. The pulse is 81. Blood pressure 145/92, respiration 18, temperature 99.2, pulse ox 100 percent on nasal cannula. HEENT: Conjunctivae normal. Oral mucosa moist. NECK is no jugular venous distention. No carotid bruit. No lymph node enlargement. CARDIOVASCULAR system: S1. S2 muffled. No S3, no S4. RESPIRATORY: Breath sounds diminished in the bases. A few scattered rhonchi and crackles. ABDOMEN: Soft and nontender. No mass palpable. LEGS: Significant pain and swelling and bluish discoloration of the right ankle present. NERVOUS system: Higher functions as mentioned earlier. Moves all 4 limbs. No focal motor or sensory deficits. SKIN: No ulcer, no rashes and no bleeding. JOINTS: No active deforming arthropathy. LAB STUDIES: WBC 6.3, hemoglobin 11.4, platelets 147. Sodium 137, potassium 5.6, creatinine is 1.70. ASSESSMENT: 1. Syncope and fall, possibly orthostatic hypotension. 2. Right ankle fracture. 3. Increased creatinine with possible acute kidney injury, acute renal failure. 4. Hyperkalemia secondary to renal failure. 5. Anemia. 6. Thrombocytopenia. 7. Urinary tract infection. 8. History of coronary artery disease. 9. Gastroesophageal reflux disease. 10.History of hypertension. 11.Hyperlipidemia. 12.History of degenerative joint disease. 13.History of prostate disorder. 14.History of colon cancer. 15.History of skin cancer. 16.History of coronary artery disease/coronary artery bypass grafting. RECOMMENDATIONS AND DISCUSSION: In this 80-year-old gentleman who presented with multiple complex medical issues, we will monitor the patient closely, continue the current management and symptomatic treatment. Pain medications, empiric antibiotics. Resume the home medications. Orthostatic vitals. I would also recommend consult Cardiology. Orthopedic surgery. The prognosis guarded because of multiple complex medical issues. Further recommendations to follow. A copy of this dictation being forwarded to Dr. Luciano who is the primary physician. Dr. Luciano will follow tomorrow on Tuesday. MMODL / IJN: [id number] /
[2020-11-23] MEDS ORDERED: INSULIN REGULAR 100 UNIT/ML VIAL IV ONE (21:10)
[2020-11-23 21:39] LABS: Glucose,Whole Blood 97 mg/dL (75-99)
[2020-11-23] MEDS: QUEtiapine 100 MG TAB PO SCH (21:41)
[2020-11-23] MEDS: GABAPENTIN 300 MG CAP PO SCH (21:41)
[2020-11-23] MEDS: DEXTROSE 50% SYRINGE 50 ML IVP STA (21:42)
[2020-11-23] MEDS: SODIUM CHLORIDE 0.9% 1,000 ML IV SCH (21:42)
[2020-11-24] MEDS ORDERED: DEXTROSE 50% SYRINGE 50 ML IVP ONE ×2 (02:08→02:38)
[2020-11-24 02:14] LABS: Glucose,Whole Blood 28 mg/dL (75-99)
[2020-11-24 02:21] LABS: Glucose,Whole Blood 256 mg/dL (75-99)
[2020-11-24 02:21] LABS: Glucose,Whole Blood 197 mg/dL (75-99)
[2020-11-24 02:21] LABS: Glucose,Whole Blood 238 mg/dL (75-99)
[2020-11-24 02:26] LABS: Glucose,Whole Blood 170 mg/dL (75-99)
[2020-11-24] MEDS ORDERED: DEXTROSE 50% SYRINGE 50 ML IVP STA ×3 (02:37→07:21)
[2020-11-24 02:39] LABS: Glucose,Whole Blood 124 mg/dL (75-99)
[2020-11-24 02:48] LABS: ABG Base Excess -8.3 mmol/L; ABG HCO3 20 mmol/L (21-25); ABG PCO2 55 mmHg (35-45); ABG PO2 121 mmHg (83-108); ABG TCO2 22 mmol/L (19-24); Allen Test Performed? Yes
[2020-11-24 02:54] LABS: ABG PH 7.17 (7.35-7.45)
[2020-11-24 02:55] LABS: Glucose,Whole Blood 266 mg/dL (75-99)
[2020-11-24 02:59] LABS: Glucose,Whole Blood 219 mg/dL (75-99)
[2020-11-24 03:09] LABS: Glucose,Whole Blood 183 mg/dL (75-99)
[2020-11-24] MEDS: NOREPINEPHRINE 4 MG in SODIUM CHLORIDE 0.9% 250 ML IV SCH ×2 (03:10→22:43)
[2020-11-24] MEDS ORDERED: NOREPINEPHRIN 4 MG-0.9% NS PMX 4 MG/250 ML ML IV ONE (03:12)
[2020-11-24 03:22] LABS: Basophils % (A) 0 %; Eosinophils # (A) 0.1 k/uL (0-0.7); Eosinophils % (A) 1 %; HCT 27.3 % (39.0-53.0); Lymphocytes # (A) 0.8 k/uL (1.0-4.8); Lymphocytes % (A) 10 %; MCH 31.5 pg (25.0-35.0); MCHC 32.4 g/dL (31.0-37.0); MCV 96.9 fL (80.0-100.0); Monocytes # (A) 0.3 k/uL (0-1.0); Monocytes % (A) 5 %; Neutrophils # (A) 6.1 k/uL (1.3-7.7); Neutrophils % (A) 83 %; Platelet Count 152 k/uL (150-450); RBC 2.82 m/uL (4.30-5.90); RDW 13.1 % (11.5-15.5); WBC 7.4 k/uL (3.8-10.6)
--- NOTE | 2020-11-24 03:26 | P.EN ---
A team note Activated at 2:21 am. Arrived on the scene shortly after. Review the chart and discussed the case with the RN in detail. The patient was admitted after a fall and right ankle fracture. The patient was also noted to be hyperkalemic and was given insulin regular 10 units IV push along with 1 ampule of D50. Upon admission to the medicine floor, he was alert and oriented 3 and was able to give a history to the nurse. She subsequent he found him to be unresponsive to sternal rub with a blood glucose of 28. The patient was given multiple ampules of D50 and was started on a D5 drip. He was also noted to be hypotensive with BP 82/47 at bedside with SpO2 95% on room air. General: Non-toxic, in no acute distress, appears stated age, normal weight HEENT: NC/AT, anicteric sclerae, moist conjunctiva, no lid-lag, PERRLA Cardiovascular: S1/S2 wnl, no murmurs, rubs, or gallops Lungs: Clear to auscultation, normal respiratory effort, no accessory muscle use Abdominal: Soft, non-tender, non-distended Skin: Warm, dry Extremities: No edema or contractures Psychiatric: Unresponsive to sternal rub Neuro: Unable to perform Assessment/plan Altered mental status, likely secondary to his severe hypoglycemia -Continue with D5 infusion -Monitor blood glucose q 5-10 minutes -ABG reviewed, mild hypercapnia, though the patient is poor candidate for BiPAP due to severe altered mentation -Repeat ABG, if worsening hypercapnia, consider intubation -Case discussed with academic affairs coordinator on-call who agreed with transferred to medical ICU for further management including Levophed infusion Hypotension -S/p 2 L NS bolus -C/w IVFs and start Levophed infusion -Patient received Ceftriaxone in ED for UTI
[2020-11-24 03:31] LABS: African American GFR (CKD) 49 (>60 ml/min/1.73 sqM); Anion Gap 5 mmol/L; Blood Urea Nitrogen 19 mg/dL (9-20); Calcium 7.8 mg/dL (8.4-10.2); Carbon Dioxide 21 mmol/L (22-30); Chloride 112 mmol/L (98-107); Glucose 292 mg/dL (74-99); Magnesium 1.5 mg/dL (1.6-2.3); Non-African American GFR(CKD) 43 (>60 ml/min/1.73 sqM); Potassium 3.7 mmol/L (3.5-5.1); Sodium 138 mmol/L (137-145)
[2020-11-24 03:49] LABS: ABG Base Excess -10.1 mmol/L; ABG HCO3 18 mmol/L (21-25); ABG Oxygen Saturation 97.6 % (94-97); ABG PCO2 43 mmHg (35-45); ABG PH 7.22 (7.35-7.45); ABG PO2 91 mmHg (83-108); ABG TCO2 19 mmol/L (19-24); Allen Test Performed? Yes
[2020-11-24 03:51] LABS: HGB 8.9 gm/dL (13.0-17.5)
[2020-11-24 04:03] LABS: Glucose,Whole Blood 112 mg/dL (75-99)
[2020-11-24] MEDS: DEXTROSE 5%-0.9% NACL 1,000 ML IV SCH ×2 (04:08→12:43)
[2020-11-24 04:19] LABS: Glucose,Whole Blood 89 mg/dL (75-99)
[2020-11-24 04:35] LABS: Glucose,Whole Blood 89 mg/dL (75-99)
[2020-11-24] MEDS ORDERED: SODIUM BICARB 8.4% 50 ML SYR (1 MEQ/ML) IV STA (04:42)
[2020-11-24 04:49] LABS: Glucose,Whole Blood 67 mg/dL (75-99)
[2020-11-24] MEDS: DEXTROSE 10% IN WATER 500 ML in EMPTY BAG 1 BAG IV SCH ×3 (04:54→16:55)
[2020-11-24 05:04] LABS: Glucose,Whole Blood 160 mg/dL (75-99)
[2020-11-24 05:38] LABS: Glucose,Whole Blood 130 mg/dL (75-99)
[2020-11-24 06:05] LABS: Glucose,Whole Blood 96 mg/dL (75-99)
[2020-11-24 06:43] LABS: Glucose,Whole Blood 78 mg/dL (75-99)
[2020-11-24 07:02] LABS: Glucose,Whole Blood 64 mg/dL (75-99)
[2020-11-24 07:21] LABS: Glucose,Whole Blood 52 mg/dL (75-99)
[2020-11-24] MEDS: PANTOPRAZOLE 40 MG TABLET PO SCH ×2 (07:29→12:43)
[2020-11-24] MEDS ORDERED: Magnesium Replacement Protocol 1 EACH MISC MISCELLANE PRN (07:37)
[2020-11-24 07:42] LABS: Glucose,Whole Blood 138 mg/dL (75-99)
[2020-11-24] MEDS: MAGNESIUM SULFATE-D5W PMX 1 GM in DEXTROSE/WATER 1 100ML.BAG IVPB SCH ×2 (08:47→15:49)
--- NOTE | 2020-11-24 08:47 | P.CRDCN ---
History of Present Illness Consult date: 11/24/20 Chief complaint: Syncope History of present illness: This is a very pleasant 80-year-old gentleman with a past medical history significant for coronary artery disease and prior coronary artery bypass grafting as well as hypertension and dyslipidemia and multiple comorbid conditions including history of syncope in the past who was admitted to the hospital with syncope as well. We requested to see the patient here in the intensive care unit. The patient somewhat is a poor historian. Apparently he was experiencing intermittent episodes of loss of consciousness for the last several weeks. No prodromal symptoms of warm feeling in the face. No associated symptoms of chest pain or chest discomfort or shortness of breath. When he presented to the hospital he was hypotensive requiring vasopressors but currently is off vasopressors. Beside that he was hypoglycemic and it seems that we are having a hard time keeping his glucose elevated. Otherwise he is in sinus rhythm currently and he is hemodynamically stable. In April 2020 was ad mitted to the hospital with syncope and at that point he underwent a workup including echocardiogram showed normal left ventricle systolic function without significant valvular abnormalities. No arrhythmia overall noted throughout his hospital stay. The GFR is 43. The hemoglobin is 8.9. The chest x-ray did not show any acute abnormalities. The first set of troponin came in to be unremarkable Past Medical History Past Medical History: Coronary Artery Disease (CAD), Cancer, GERD/Reflux, Hyperlipidemia, Hypertension, Osteoarthritis (OA), Prostate Disorder, Syncope Additional Past Medical History / Comment(s): HX OF PROSTATE AND COLON CANCER, SKIN CANCER ON NOSE AND RIGHT EAR, BACK PAIN, chronic diarrhea (8 months). History of sigmoid diverticulosis, ileus, carcinoid syndrome History of Any Multi-Drug Resistant Organisms: None Reported Past Surgical History: Bowel Resection, Cholecystectomy, Coronary Bypass/CABG, Heart Catheterization, Hernia Repair, Prostate Surgery Additional Past Surgical History / Comment(s): X2 PENILE IMPLANT, RADIOACTIVE SEEDS FOR PROSTATE CANCER, FUNDOPLICATION & REVISION, EGD, LASIK EYE SURG, VASECTOMY. , STATES BILATERAL INGUINAL HERNIA REPAIR. bowel resect Past Anesthesia/Blood Transfusion Reactions: No Reported Reaction Past Psychological History: No Psychological Hx Reported Smoking Status: Never smoker Past Alcohol Use History: None Reported Past Drug Use History: None Reported - Past Family History Mother Family Medical History: No Reported History Medications and Allergies Home Medications Medication Instructions Recorded Confirmed Type Omeprazole [PriLOSEC] 40 mg PO DAILY 03/18/16 11/23/20 History Aspirin EC [Ecotrin Low Dose] 81 mg PO DAILY 07/29/16 11/23/20 History Folic Acid 1 mg PO DAILY 07/29/16 11/23/20 History Dicyclomine [Bentyl] 20 mg PO QID PRN 04/21/19 11/23/20 History Diphenox-Atrop 2.5-0.025 mg 2 tab PO QID PRN 04/21/19 11/23/20 History [Lomotil] Gabapentin [Neurontin] 600 mg PO BID 04/21/19 11/23/20 History Simvastatin [Zocor] 20 mg PO HS 04/21/19 11/23/20 History DULoxetine HCL [Cymbalta] 60 mg PO BID 04/04/20 11/23/20 History Fluticasone Nasal [place] [Flonase 2 spr EA NOSTRIL DAILY 04/04/20 11/23/20 History Nasal Challenge] Magnesium Oxide [[place]] 500 mg PO DAILY 04/04/20 11/23/20 History Octreotide Acetate,Mi-Spheres 30 mg IM Q30D 04/04/20 11/23/20 History [SandoSTATIN LAR Depot] Prevagen 1 tab PO DAILY 04/04/20 11/23/20 History QUEtiapine FUMARATE [QUEtiapine 200 mg PO HS 04/04/20 11/23/20 History FUMARATE ER] Mansoor-Forte 1mg 1 mg PO DAILY 04/04/20 11/23/20 History Loratadine [Claritin] 10 mg PO HS tab 06/03/20 11/23/20 Rx Multivitamins, Thera [Multivitamin 1 tab PO DAILY 10/30/20 11/23/20 History (formulary)] Octreotide Acetate,Mi-Spheres 10 mg IM Q30D 10/30/20 11/23/20 History [SandoSTATIN LAR [place]] polyethylene glycoL 3350 [Miralax] 17 gm PO DAILY PRN 11/23/20 11/23/20 History Allergies Allergy/AdvReac Type Severity Reaction Status Date / Time No Known Allergies Allergy Verified 10/30/20 18:55 Physical Exam Vitals: Vital Signs Temp Pulse Pulse Resp BP BP Pulse Ox 11/24/20 07:00 93 13 113/67 100 11/24/20 06:30 96 8 L 115/66 99 11/24/20 06:00 95 9 L 110/74 100 11/24/20 05:30 94 12 120/64 100 11/24/20 05:00 98 10 L 121/68 99 11/24/20 04:30 100 6 L 129/69 99 11/24/20 04:00 97.4 F L 117 H 14 139/101 96 11/24/20 03:33 10 L 11/24/20 03:30 92 10 L 107/57 100 11/24/20 03:08 101 H 13 11/24/20 02:55 100 11/24/20 02:45 109 H 19 88/48 95 11/23/20 18:59 94 18 137/95 94 L 11/23/20 16:02 99.2 F 81 18 145/92 100 Intake and Output 11/23/20 11/24/20 11/24/20 22:59 06:59 14:59 Intake Total 262.32 75 Output Total 100 150 Balance 162.32 -75 Intake: IV 250 75 Dextrose 10% in Water 500 100 75 ml In Empty Bag 1 bag @ 50 mls/hr IV .Q10H [facility] Rx #:[id number] Dextrose 5%-0.9% NaCl 1, 150 000 ml @ 150 mls/hr IV . Q6H40M [facility] Rx#:[id number] Intake, IV Titration 12.32 Amount Norepinephrine 4 mg In 12.32 Sodium Chloride 0.9% 250 ml @ 0.05 MCG/KG/MIN 12. 529 mls/hr IV .[id number] [facility] Rx#:[id number] Output: Urine 100 150 Other: Voiding Method External Catheter # Voids 1 Weight 65.771 kg - Constitutional General appearance: no acute distress - Respiratory Respiratory: bilateral: CTA - Cardiovascular Rhythm: regular Heart sounds: normal: S1, S2 Abnormal Heart Sounds: systolic murmur Results 11/24/20 03:14 11/24/20 03:14 Cardiac Enzymes 11/23/20 11/23/20 Range/Units 16:28 16:28 AST 39 (17-59) U/L Troponin I <0.012 (0.000-0.034) ng/mL Coagulation 11/23/20 Range/Units 17:35 PT 10.8 (9.0-12.0) sec APTT 22.5 (22.0-30.0) sec CBC 11/23/20 11/24/20 Range/Units 16:28 03:14 WBC 6.5 7.4 (3.8-10.6) k/uL RBC 3.75 L 2.82 L (4.30-5.90) m/uL Hgb 11.5 L 8.9 L D (13.0-17.5) gm/dL Hct 34.6 L 27.3 L (39.0-53.0) % Plt Count 147 L 152 (150-450) k/uL Comprehensive Metabolic Panel 11/23/20 11/24/20 Range/Units 16:28 03:14 Sodium 137 138 (137-145) mmol/L Potassium 5.6 H 3.7 (3.5-5.1) mmol/L Chloride 106 112 H (98-107) mmol/L Carbon Dioxide 19 L 21 L (22-30) mmol/L BUN 19 19 (9-20) mg/dL Creatinine 1.70 H 1.52 H (0.66-1.25) mg/dL Glucose 79 292 H (74-99) mg/dL Calcium 9.8 7.8 L (8.4-10.2) mg/dL AST 39 (17-59) U/L ALT 36 (4-49) U/L Alkaline Phosphatase 144 H (38-126) U/L Total Protein 8.1 (6.3-8.2) g/dL Albumin 4.5 (3.5-5.0) g/dL Current Medications Generic Name Dose Route Start Last Admin Trade Name Freq PRN Reason Stop Dose Admin Aspirin 81 mg 11/24/20 09:00 Aspirin 81 Mg PO DAILY [facility] Atorvastatin Calcium 10 mg 11/24/20 21:00 Atorvastatin 10 Mg Tab PO HS [facility] Duloxetine HCl 60 mg 11/24/20 09:00 Duloxetine Hcl 60 Mg Capsule.Dr PO BID [facility] Fluticasone Propionate 2 spray 11/24/20 09:00 Fluticasone 50mcg/Challenge Nasal 16gm EA NOSTRIL DAILY [facility] Folic Acid 1 mg 11/24/20 09:00 Folic Acid 1 Mg Tab PO DAILY [facility] Gabapentin 600 mg 11/23/20 21:00 11/23/20 21:41 Gabapentin 300 Mg Cap PO 600 mg BID [facility] Administration Hydromorphone HCl 1 mg 11/23/20 19:34 Hydromorphone 1 Mg/Ml 1 Ml Syringe IVP Q3HR PRN Severe Pain Sodium Chloride 1,000 mls @ 75 mls/hr 11/23/20 19:45 11/23/20 21:42 Saline 0.9% IV 75 mls/hr .[id number] [facility] Administration Dextrose/Sodium Chloride 1,000 mls @ 150 mls/hr 11/24/20 02:45 11/24/20 04:08 Dextrose 5%-Ns Iv Soln IV 150 mls/hr .Q6H40M [facility] Administration Norepinephrine Bitartrate 4 mg 254 mls @ 12.529 mls/hr 11/24/20 03:15 11/24/20 04:09 / Sodium Chloride IV 0 mcg/kg/min .[id number] [facility] 0 mls/hr Titration Protocol 0.05 MCG/KG/MIN Dextrose/Water 500 ml/ IV 500 mls @ 50 mls/hr 11/24/20 04:45 11/24/20 04:54 Solution IV 50 mls/hr .Q10H [facility] Administration Magnesium Sulfate/Dextrose 1 100 mls @ 100 mls/hr 11/24/20 07:45 gm/ IV Solution IVPB 11/24/20 09:44 Q1H [facility] Loratadine 10 mg 11/24/20 21:00 Loratadine 10 Mg Tab PO HS [facility] Magnesium Oxide 400 mg 11/24/20 09:00 Magnesium Oxide 400 Mg Tab PO DAILY [facility] Miscellaneous Information 1 each 11/24/20 07:37 Magnesium Replacement Protocol 1 Each Misc MISCELLANE DAILY PRN Per Protocol Protocol Multivitamins 1 each 11/24/20 09:00 Multivitamins, Thera 1 Each Tab PO DAILY [facility] Naloxone HCl 0.2 mg 11/23/20 19:34 11/24/20 03:33 Naloxone 0.4 Mg/Ml 1 Ml Vial IV 0.2 mg Q2M PRN Administration Opioid Reversal Pantoprazole Sodium 40 mg 11/24/20 07:30 11/24/20 07:29 Pantoprazole 40 Mg Tablet PO Not Given DAILY@0730 [facility] Quetiapine Fumarate 200 mg 11/23/20 21:00 11/23/20 21:41 Quetiapine 100 Mg Tab PO 200 mg HS [facility] Administration Intake and Output 11/23/20 11/24/20 11/24/20 22:59 06:59 14:59 Intake Total 262.32 75 Output Total 100 150 Balance 162.32 -75 Intake: IV 250 75 Dextrose 10% in Water 500 100 75 ml In Empty Bag 1 bag @ 50 mls/hr IV .Q10H [facility] Rx #:[id number] Dextrose 5%-0.9% NaCl 1, 150 000 ml @ 150 mls/hr IV . Q6H40M [facility] Rx#:[id number] Intake, IV Titration 12.32 Amount Norepinephrine 4 mg In 12.32 Sodium Chloride 0.9% 250 ml @ 0.05 MCG/KG/MIN 12. 529 mls/hr IV .[id number] [facility] Rx#:[id number] Output: Urine 100 150 Other: Voiding Method External Catheter # Voids 1 Weight 65.771 kg 11/24/20 03:14 11/24/20 03:14 Assessment and Plan Assessment: Assessment #1 recurrent syncope #2 coronary artery disease #3 hypoglycemia #4 hypertension #5 multiple comorbid conditions Plan #1 further evaluation of the hypoglycemia #2 hold any blood pressure medications at this point. #3 rule out cardiac arrhythmia #4 obtain an echocardiogram was Doppler #5 rule out acute coronary syndrome
[2020-11-24 08:56] LABS: Glucose,Whole Blood 93 mg/dL (75-99)
[2020-11-24 08:56] LABS: Glucose,Whole Blood 102 mg/dL (75-99)
[2020-11-24 09:59] LABS: Glucose,Whole Blood 75 mg/dL (75-99)
[2020-11-24 11:21] LABS: Glucose,Whole Blood 42 mg/dL (75-99)
[2020-11-24 11:21] LABS: Glucose,Whole Blood 59 mg/dL (75-99)
[2020-11-24] MEDS: DEXTROSE 50% SYRINGE 50 ML IVP STA (11:25)
--- NOTE | 2020-11-24 11:27 | P.HPOR ---
History of Present Illness H&P Date: 11/23/20 Chief Complaint: R ankle pain 80 yo male presents s/p ffs with right ankle deformity, pain and inability to ambulate. C/o pain in ankle. denies any numbness tingling. Denies any f/c/sob/cp or BHT with fall. He is somewhat sedated currently as he was attempted reduction 2x in ED without success. He c/o discomfort of his ankle, but no other areas currently. Review of Systems 14 point ROS completed and as stated in HPI. All other systems reviewed negative. Past Medical History Past Medical History: Coronary Artery Disease (CAD), Cancer, GERD/Reflux, Hyperlipidemia, Hypertension, Osteoarthritis (OA), Prostate Disorder, Syncope Additional Past Medical History / Comment(s): HX OF PROSTATE AND COLON CANCER, SKIN CANCER ON NOSE AND RIGHT EAR, BACK PAIN, chronic diarrhea (8 months). History of sigmoid diverticulosis, ileus, carcinoid syndrome History of Any Multi-Drug Resistant Organisms: None Reported Past Surgical History: Bowel Resection, Cholecystectomy, Coronary Bypass/CABG, Heart Catheterization, Hernia Repair, Prostate Surgery Additional Past Surgical History / Comment(s): X2 PENILE IMPLANT, RADIOACTIVE SEEDS FOR PROSTATE CANCER, FUNDOPLICATION & REVISION, EGD, LASIK EYE SURG, VAS ECTOMY. , STATES BILATERAL INGUINAL HERNIA REPAIR. bowel resect Past Anesthesia/Blood Transfusion Reactions: No Reported Reaction Past Psychological History: No Psychological Hx Reported Smoking Status: Never smoker Past Alcohol Use History: None Reported Past Drug Use History: None Reported - Past Family History Mother Family Medical History: No Reported History Medications and Allergies Home Medications Medication Instructions Recorded Confirmed Type Omeprazole [PriLOSEC] 40 mg PO DAILY 03/18/16 11/23/20 History Aspirin EC [Ecotrin Low Dose] 81 mg PO DAILY 07/29/16 11/23/20 History Folic Acid 1 mg PO DAILY 07/29/16 11/23/20 History Dicyclomine [Bentyl] 20 mg PO QID PRN 04/21/19 11/23/20 History Diphenox-Atrop 2.5-0.025 mg 2 tab PO QID PRN 04/21/19 11/23/20 History [Lomotil] Gabapentin [Neurontin] 600 mg PO BID 04/21/19 11/23/20 History Simvastatin [Zocor] 20 mg PO HS 04/21/19 11/23/20 History DULoxetine HCL [Cymbalta] 60 mg PO BID 04/04/20 11/23/20 History Fluticasone Nasal [place] [Flonase 2 spr EA NOSTRIL DAILY 04/04/20 11/23/20 History Nasal [place]] Magnesium Oxide [[place]] 500 mg PO DAILY 04/04/20 11/23/20 History Octreotide Acetate,Mi-Spheres 30 mg IM Q30D 04/04/20 11/23/20 History [SandoSTATIN LAR Depot] Prevagen 1 tab PO DAILY 04/04/20 11/23/20 History QUEtiapine FUMARATE [QUEtiapine 200 mg PO HS 04/04/20 11/23/20 History FUMARATE ER] Mansoor-Forte 1mg 1 mg PO DAILY 04/04/20 11/23/20 History Loratadine [Claritin] 10 mg PO HS tab 06/03/20 11/23/20 Rx Multivitamins, Thera [Multivitamin 1 tab PO DAILY 10/30/20 11/23/20 History (formulary)] Octreotide Acetate,Mi-Spheres 10 mg IM Q30D 10/30/20 11/23/20 History [SandoSTATIN LAR [place]ot] polyethylene glycoL 3350 [Miralax] 17 gm PO DAILY PRN 11/23/20 11/23/20 History Allergies Allergy/AdvReac Type Severity Reaction Status Date / Time No Known Allergies Allergy Verified 10/30/20 18:55 Physical Examination Osteopathic Statement: *. No significant issues noted on an osteopathic structural exam other than those noted in the History and Physical/Consult. Patient is alert and oriented 3 appears well-nourished well-hydrated is in no acute distress. They does not appear septic. On exam the patient has no tenderness to palpation of her thoracic or lumbar spine. There is no edema or ballottement sign. They have good strength in her lower extremities with 5 out of 5 dorsiflexion plantar flexion EHL and FHL bilaterally. Upper extremities show 5/5 strength in all major muscle groups. There is FROM that is painless of the b/l UE and LE in all major joints. They are intact to light touch sensation in L2 to S1 nerve distribution. Patient has palpable dorsalis pedis was posterior tibial pulses. Compartments are soft and compressible. Patient shows a negative Homans, Fermin's, negative Babinski's negative clonus bilaterally. negative straight leg raise bilaterally. No tensioning signs.Cranial nerves II through XII are grossly intact. Overall alignment is well-maintained in the sagittal coronal planes. Right ankle tender to palpation. Over the medial aspect of the right ankle there is tenting of the skin as well as erythema or ecchymosis or edema. Secondary to the dislocation that is present in the tibiotalar joint. There is deformity noted here. There are palpable pulses however and these have gotten better since reduction. Patient is intact L2 to S1 as well. Compartments are soft and compressible though the patient is very swollen around his ankle. Results R ankle films demonstrate a trimalleolar ankle fracture dislocation with posterior malleolus that appears >20% on lateral xray as well as comminuted distal bassett B ankle fracture with lateral displacement of the tibotalar joint. Two post reduction films show reduction with still perching posterior. Third and final reduction film shows congruent TT reduction. Tib/fib and knee films show no fracture proximally. Syndesmosis appears in tact. All other trauma films are negative for fracture at this time. - Labs Labs: Abnormal Lab Results - Last 24 Hours (Table) 11/23/20 11/23/20 11/23/20 Range/Units 16:28 16:28 17:35 RBC 3.75 L (4.30-5.90) m/uL Hgb 11.5 L (13.0-17.5) gm/dL Hct 34.6 L (39.0-53.0) % Plt Count 147 L (150-450) k/uL Potassium 5.6 H (3.5-5.1) mmol/L Carbon Dioxide 19 L (22-30) mmol/L Creatinine 1.70 H (0.66-1.25) mg/dL Alkaline Phosphatase 144 H (38-126) U/L Ur Leukocyte Esterase Large H (Negative) Urine WBC >182 H (0-5) /hpf Urine Bacteria Few H (None) /hpf Urine Mucus Rare H (None) /hpf H & H 11/23/20 Range/Units 16:28 Hgb 11.5 L (13.0-17.5) gm/dL Hct 34.6 L (39.0-53.0) % Coagulation 11/23/20 Range/Units 17:35 INR 1.0 (<1.2) Result Diagrams: 11/24/20 03:14 11/24/20 03:14 Assessment and Plan Assessment: 80 yo male s/p ffs w/o BHT or LOC 1. R ankle trimalleolar fracture dislocation 2. Complex medical history 3. S/p FFS Plan: Pt was seen and examined in the emergency department After informd consent, closed reduction and splinting of the R ankle was performed under a local ankle block with 0.5% marcaine. The ankle was congruently reduced on post reduction xray Admit to hospital Medicine to consult and clear for OR on Tuesday11/25/20 Pain control NWB RLE Ice rest and elevation for pain and swelling control GI/DVT ppx Home meds as appropriate OR planned for Tuesday11/25/20 for ORIF of Right ankle.
[2020-11-24] MEDS ORDERED: Potassium Replacement Protocol 1 EACH MISC MISCELLANE PRN (11:28)
[2020-11-24] MEDS ORDERED: HYDROCORTISONE SUCCINATE 100 MG/2 ML VIAL IV STA (11:34)
[2020-11-24 11:47] LABS: Glucose,Whole Blood 95 mg/dL (75-99)
[2020-11-24] MEDS: POTASSIUM CHLORIDE 10 MEQ in WATER FOR INJECTION 1 100ML.BAG IVPB SCH ×2 (12:37→14:20)
--- NOTE | 2020-11-24 12:37 | P.PN ---
Subjective Progress Note Date: 11/24/20 Principal diagnosis: Right ankle trimalleolar fracture with dislocation Patient is evaluated at bedside, he is in the ICU. Dr. Stanford was available to examine the patient also. Patient is resting comfortably, he notes mostly discomfort in the ankle with movement. Patient is having no other orthopedic complaints at this time. Patient is being followed by cardiology at this time along with internal medicine. Patient currently denies any headaches, lightheadedness, chest pain, shortness of breath, nausea or vomiting, loss of bowel or bladder function, bilateral lower and upper extremity paresthesias Objective - Vital Signs Vital signs: Vital Signs Temp 97.4 F L 11/24/20 04:00 Pulse 93 11/24/20 07:00 Resp 13 11/24/20 07:00 BP 113/67 11/24/20 07:00 Pulse Ox 100 11/24/20 07:00 Intake & Output 11/23/20 11/24/20 11/24/20 18:59 06:59 18:59 Intake Total 262.32 75 Output Total 100 150 Balance 162.32 -75 Weight 65.771 kg 65.771 kg Intake: IV 250 75 Dextrose 10% in Water 500 100 75 ml In Empty Bag 1 bag @ 50 mls/hr IV .Q10H [facility] Rx #:[id number] Dextrose 5%-0.9% NaCl 1, 150 000 ml @ 150 mls/hr IV . Q6H40M [facility] Rx#:[id number] Intake, IV Titration 12.32 Amount Norepinephrine 4 mg In 12.32 Sodium Chloride 0.9% 250 ml @ 0.05 MCG/KG/MIN 12. 529 mls/hr IV .[id number] [facility] Rx#:[id number] Output: Urine 100 150 Other: Voiding Method External Catheter # Voids 1 - Exam Right lower extremity: Splint is in good position and condition with good Al wrap fixation Patient is able to wiggle the toes with no difficulty, cap refill is less than 2 seconds Compartments of the upper leg are soft and compressible Sensation to light touch proximal and distal to the splint are intact Logroll maneuver reproduces no pain in the groin - Labs CBC & Chem 7: 11/24/20 03:14 11/24/20 03:14 Labs: Abnormal Lab Results - Last 24 Hours (Table) 11/23/20 11/23/20 11/23/20 Range/Units 16:28 16:28 17:35 RBC 3.75 L (4.30-5.90) m/uL Hgb 11.5 L (13.0-17.5) gm/dL Hct 34.6 L (39.0-53.0) % Plt Count 147 L (150-450) k/uL Lymphocytes # (1.0-4.8) k/uL ABG pH (7.35-7.45) ABG pCO2 (35-45) mmHg ABG pO2 (83-108) mmHg ABG HCO3 (21-25) mmol/L ABG O2 Saturation (94-97) % Potassium 5.6 H (3.5-5.1) mmol/L Chloride (98-107) mmol/L Carbon Dioxide 19 L (22-30) mmol/L Creatinine 1.70 H (0.66-1.25) mg/dL Glucose (74-99) mg/dL POC Glucose (mg/dL) (75-99) mg/dL Calcium (8.4-10.2) mg/dL Magnesium (1.6-2.3) mg/dL Alkaline Phosphatase 144 H (38-126) U/L Ur Leukocyte Esterase Large H (Negative) Urine WBC >182 H (0-5) /hpf Urine Bacteria Few H (None) /hpf Urine Mucus Rare H (None) /hpf 11/24/20 11/24/20 11/24/20 Range/Units 02:07 02:14 02:16 RBC (4.30-5.90) m/uL Hgb (13.0-17.5) gm/dL Hct (39.0-53.0) % Plt Count (150-450) k/uL Lymphocytes # (1.0-4.8) k/uL ABG pH (7.35-7.45) ABG pCO2 (35-45) mmHg ABG pO2 (83-108) mmHg ABG HCO3 (21-25) mmol/L ABG O2 Saturation (94-97) % Potassium (3.5-5.1) mmol/L Chloride (98-107) mmol/L Carbon Dioxide (22-30) mmol/L Creatinine (0.66-1.25) mg/dL Glucose (74-99) mg/dL POC Glucose (mg/dL) 28 L 256 H 238 H (75-99) mg/dL Calcium (8.4-10.2) mg/dL Magnesium (1.6-2.3) mg/dL Alkaline Phosphatase (38-126) U/L Ur Leukocyte Esterase (Negative) Urine WBC (0-5) /hpf Urine Bacteria (None) /hpf Urine Mucus (None) /hpf 11/24/20 11/24/20 11/24/20 Range/Units 02:20 02:25 02:33 RBC (4.30-5.90) m/uL Hgb (13.0-17.5) gm/dL Hct (39.0-53.0) % Plt Count (150-450) k/uL Lymphocytes # (1.0-4.8) k/uL ABG pH (7.35-7.45) ABG pCO2 (35-45) mmHg ABG pO2 (83-108) mmHg ABG HCO3 (21-25) mmol/L ABG O2 Saturation (94-97) % Potassium (3.5-5.1) mmol/L Chloride (98-107) mmol/L Carbon Dioxide (22-30) mmol/L Creatinine (0.66-1.25) mg/dL Glucose (74-99) mg/dL POC Glucose (mg/dL) 197 H 170 H 124 H (75-99) mg/dL Calcium (8.4-10.2) mg/dL Magnesium (1.6-2.3) mg/dL Alkaline Phosphatase (38-126) U/L Ur Leukocyte Esterase (Negative) Urine WBC (0-5) /hpf Urine Bacteria (None) /hpf Urine Mucus (None) /hpf 11/24/20 11/24/20 11/24/20 Range/Units 02:37 02:46 02:57 RBC (4.30-5.90) m/uL Hgb (13.0-17.5) gm/dL Hct (39.0-53.0) % Plt Count (150-450) k/uL Lymphocytes # (1.0-4.8) k/uL ABG pH 7.17 L* (7.35-7.45) ABG pCO2 55 H (35-45) mmHg ABG pO2 121 H (83-108) mmHg ABG HCO3 20 L (21-25) mmol/L ABG O2 Saturation 99.0 H (94-97) % Potassium (3.5-5.1) mmol/L Chloride (98-107) mmol/L Carbon Dioxide (22-30) mmol/L Creatinine (0.66-1.25) mg/dL Glucose (74-99) mg/dL POC Glucose (mg/dL) 266 H 219 H (75-99) mg/dL Calcium (8.4-10.2) mg/dL Magnesium (1.6-2.3) mg/dL Alkaline Phosphatase (38-126) U/L Ur Leukocyte Esterase (Negative) Urine WBC (0-5) /hpf Urine Bacteria (None) /hpf Urine Mucus (None) /hpf 11/24/20 11/24/20 11/24/20 Range/Units 03:07 03:14 03:14 RBC 2.82 L (4.30-5.90) m/uL Hgb 8.9 L D (13.0-17.5) gm/dL Hct 27.3 L (39.0-53.0) % Plt Count (150-450) k/uL Lymphocytes # 0.8 L (1.0-4.8) k/uL ABG pH (7.35-7.45) ABG pCO2 (35-45) mmHg ABG pO2 (83-108) mmHg ABG HCO3 (21-25) mmol/L ABG O2 Saturation (94-97) % Potassium (3.5-5.1) mmol/L Chloride 112 H (98-107) mmol/L Carbon Dioxide 21 L (22-30) mmol/L Creatinine 1.52 H (0.66-1.25) mg/dL Glucose 292 H (74-99) mg/dL POC Glucose (mg/dL) 183 H (75-99) mg/dL Calcium 7.8 L (8.4-10.2) mg/dL Magnesium 1.5 L (1.6-2.3) mg/dL Alkaline Phosphatase (38-126) U/L Ur Leukocyte Esterase (Negative) Urine WBC (0-5) /hpf Urine Bacteria (None) /hpf Urine Mucus (None) /hpf 11/24/20 11/24/20 11/24/20 Range/Units 03:47 04:02 04:47 RBC (4.30-5.90) m/uL Hgb (13.0-17.5) gm/dL Hct (39.0-53.0) % Plt Count (150-450) k/uL Lymphocytes # (1.0-4.8) k/uL ABG pH 7.22 L (7.35-7.45) ABG pCO2 (35-45) mmHg ABG pO2 (83-108) mmHg ABG HCO3 18 L (21-25) mmol/L ABG O2 Saturation 97.6 H (94-97) % Potassium (3.5-5.1) mmol/L Chloride (98-107) mmol/L Carbon Dioxide (22-30) mmol/L Creatinine (0.66-1.25) mg/dL Glucose (74-99) mg/dL POC Glucose (mg/dL) 112 H 67 L (75-99) mg/dL Calcium (8.4-10.2) mg/dL Magnesium (1.6-2.3) mg/dL Alkaline Phosphatase (38-126) U/L Ur Leukocyte Esterase (Negative) Urine WBC (0-5) /hpf Urine Bacteria (None) /hpf Urine Mucus (None) /hpf 11/24/20 11/24/20 11/24/20 Range/Units 05:02 05:36 07:01 RBC (4.30-5.90) m/uL Hgb (13.0-17.5) gm/dL Hct (39.0-53.0) % Plt Count (150-450) k/uL Lymphocytes # (1.0-4.8) k/uL ABG pH (7.35-7.45) ABG pCO2 (35-45) mmHg ABG pO2 (83-108) mmHg ABG HCO3 (21-25) mmol/L ABG O2 Saturation (94-97) % Potassium (3.5-5.1) mmol/L Chloride (98-107) mmol/L Carbon Dioxide (22-30) mmol/L Creatinine (0.66-1.25) mg/dL Glucose (74-99) mg/dL POC Glucose (mg/dL) 160 H 130 H 64 L (75-99) mg/dL Calcium (8.4-10.2) mg/dL Magnesium (1.6-2.3) mg/dL Alkaline Phosphatase (38-126) U/L Ur Leukocyte Esterase (Negative) Urine WBC (0-5) /hpf Urine Bacteria (None) /hpf Urine Mucus (None) /hpf 11/24/20 11/24/20 11/24/20 Range/Units 07:19 07:40 08:15 RBC (4.30-5.90) m/uL Hgb (13.0-17.5) gm/dL Hct (39.0-53.0) % Plt Count (150-450) k/uL Lymphocytes # (1.0-4.8) k/uL ABG pH (7.35-7.45) ABG pCO2 (35-45) mmHg ABG pO2 (83-108) mmHg ABG HCO3 (21-25) mmol/L ABG O2 Saturation (94-97) % Potassium (3.5-5.1) mmol/L Chloride (98-107) mmol/L Carbon Dioxide (22-30) mmol/L Creatinine (0.66-1.25) mg/dL Glucose (74-99) mg/dL POC Glucose (mg/dL) 52 L 138 H 102 H (75-99) mg/dL Calcium (8.4-10.2) mg/dL Magnesium (1.6-2.3) mg/dL Alkaline Phosphatase (38-126) U/L Ur Leukocyte Esterase (Negative) Urine WBC (0-5) /hpf Urine Bacteria (None) /hpf Urine Mucus (None) /hpf 11/24/20 11/24/20 Range/Units 11:18 11:20 RBC (4.30-5.90) m/uL Hgb (13.0-17.5) gm/dL Hct (39.0-53.0) % Plt Count (150-450) k/uL Lymphocytes # (1.0-4.8) k/uL ABG pH (7.35-7.45) ABG pCO2 (35-45) mmHg ABG pO2 (83-108) mmHg ABG HCO3 (21-25) mmol/L ABG O2 Saturation (94-97) % Potassium (3.5-5.1) mmol/L Chloride (98-107) mmol/L Carbon Dioxide (22-30) mmol/L Creatinine (0.66-1.25) mg/dL Glucose (74-99) mg/dL POC Glucose (mg/dL) 42 L 59 L (75-99) mg/dL Calcium (8.4-10.2) mg/dL Magnesium (1.6-2.3) mg/dL Alkaline Phosphatase (38-126) U/L Ur Leukocyte Esterase (Negative) Urine WBC (0-5) /hpf Urine Bacteria (None) /hpf Urine Mucus (None) /hpf Assessment and Plan Assessment: Right ankle trimalleolar fracture dislocation, status post reduction and splinting Syncopal episode Hypoglycemia Multiple medical comorbidities Plan: We would like to proceed with an open reduction internal fixation of the right ankle on 11/25/2020, we will await clearances from other medical specialties Patient made nothing by mouth after midnight in anticipation for surgery Nonweightbearing right lower extremity Pain control adequate at this time DVT prophylaxis, subcu medication after surgery Ice and elevate the right lower extremity for pain and swelling control Other medical director and recommendations Further recommendations to follow Time with Patient: Less than 30
[2020-11-24] MEDS: ASPIRIN 81 MG PO SCH (12:42)
[2020-11-24] MEDS: FOLIC ACID 1 MG TAB PO SCH (12:42)
[2020-11-24] MEDS: MAGNESIUM OXIDE 400 MG TAB PO SCH (12:42)
[2020-11-24] MEDS: DULoxetine HCL 60 MG CAPSULE.DR PO SCH ×2 (12:43→21:16)
[2020-11-24] MEDS: GABAPENTIN 300 MG CAP PO SCH ×2 (12:43→21:21)
[2020-11-24] MEDS: MULTIVITAMINS, THERA 1 EACH TAB PO SCH (12:43)
[2020-11-24] MEDS: FLUTICASONE 50MCG/SPRAY NASAL 16GM EA NOSTRIL SCH (12:43)
[2020-11-24] MEDS: SODIUM CHLORIDE 0.9% 1,000 ML IV SCH ×2 (14:20→21:29)
[2020-11-24 14:27] LABS: Glucose,Whole Blood 96 mg/dL (75-99)
[2020-11-24 15:48] LABS: Glucose,Whole Blood 90 mg/dL (75-99)
[2020-11-24] MEDS: HYDROmorphone 1 MG/ML 1 ML SYRINGE IVP PRN (16:16)
--- NOTE | 2020-11-24 16:42 | P.PN ---
Subjective Progress Note Date: 11/24/20 This is an 80-year-old gentleman status post syncope with fall sustaining right ankle fracture, acute renal failure, hyperkalemia and multiple other medical issues, [facility], became unresponsive with hypoglycemia, calm, hypotensive with systolic blood pressures in the low 80s, ma intaining O2 sats in the 90s on room air and transferred to the ICU. Received IV fluid bolus/IV fluid hydration. Weaned off of Levophed since 299. Currently receiving dextrose 10% with blood sugars ranging from 59 to high 90s. Evaluated by orthopedic surgery and is scheduled for surgery tomorrow. Echo completed, results pending. Telemetry sinus rhythm. Denies chest pain, palpitations or shortness of breath. Afebrile, normal WBC. Objective - Vital Signs Vital signs: Vital Signs Temp 97.4 F L 11/24/20 04:00 Pulse 93 11/24/20 07:00 Resp 13 11/24/20 07:00 BP 113/67 11/24/20 07:00 Pulse Ox 100 11/24/20 07:00 Intake & Output 11/23/20 11/24/20 11/24/20 18:59 06:59 18:59 Intake Total 262.32 75 Output Total 100 150 Balance 162.32 -75 Weight 65.771 kg 65.771 kg Intake: IV 250 75 Dextrose 10% in Water 500 100 75 ml In Empty Bag 1 bag @ 50 mls/hr IV .Q10H [facility] Rx #:[id number] Dextrose 5%-0.9% NaCl 1, 150 000 ml @ 150 mls/hr IV . Q6H40M [facility] Rx#:[id number] Intake, IV Titration 12.32 Amount Norepinephrine 4 mg In 12.32 Sodium Chloride 0.9% 250 ml @ 0.05 MCG/KG/MIN 12. 529 mls/hr IV .[id number] MYLA Rx#:[id number] Output: Urine 100 150 Other: Voiding Method External Catheter # Voids 1 - Exam PHYSICAL EXAM: VITAL SIGNS: As above GENERAL: Sitting up in bed, no acute distress HEENT: Conjunctivae normal. eyes normal. NECK: No JVD. No thyroid enlargement. No LNs CARDIOVASCULAR: S1, S2 regular. Systolic murmur. RESPIRATION: Breath sounds diminished in the bases. No rhonchi or crackles. ABDOMEN: Soft, nontender . No guarding. no masses palpable.Bowel sounds heard. LEGS: Right ankle ecchymosis, edema with Al wrap dressing clean dry and intact PSYCHIATRY: Alert and oriented X3, mood and affect normal. NERVOUS SYSTEM: Cranial N 2-12 grossly normal. Moves all 4 limbs. Diffuse weakness No focal deficits. Strength and sensation grossly intact. Skin: Warm and dry, no rash - Labs CBC & Chem 7: 11/24/20 03:14 11/24/20 03:14 Labs: Abnormal Lab Results - Last 24 Hours (Table) 11/23/20 11/23/20 11/23/20 Range/Units 16:28 16:28 17:35 RBC 3.75 L (4.30-5.90) m/uL Hgb 11.5 L (13.0-17.5) gm/dL Hct 34.6 L (39.0-53.0) % Plt Count 147 L (150-450) k/uL Lymphocytes # (1.0-4.8) k/uL ABG pH (7.35-7.45) ABG pCO2 (35-45) mmHg ABG pO2 (83-108) mmHg ABG HCO3 (21-25) mmol/L ABG O2 Saturation (94-97) % Potassium 5.6 H (3.5-5.1) mmol/L Chloride (98-107) mmol/L Carbon Dioxide 19 L (22-30) mmol/L Creatinine 1.70 H (0.66-1.25) mg/dL Glucose (74-99) mg/dL POC Glucose (mg/dL) (75-99) mg/dL Calcium (8.4-10.2) mg/dL Magnesium (1.6-2.3) mg/dL Alkaline Phosphatase 144 H (38-126) U/L Ur Leukocyte Esterase Large H (Negative) Urine WBC >182 H (0-5) /hpf Urine Bacteria Few H (None) /hpf Urine Mucus Rare H (None) /hpf 11/24/20 11/24/20 11/24/20 Range/Units 02:07 02:14 02:16 RBC (4.30-5.90) m/uL Hgb (13.0-17.5) gm/dL Hct (39.0-53.0) % Plt Count (150-450) k/uL Lymphocytes # (1.0-4.8) k/uL ABG pH (7.35-7.45) ABG pCO2 (35-45) mmHg ABG pO2 (83-108) mmHg ABG HCO3 (21-25) mmol/L ABG O2 Saturation (94-97) % Potassium (3.5-5.1) mmol/L Chloride (98-107) mmol/L Carbon Dioxide (22-30) mmol/L Creatinine (0.66-1.25) mg/dL Glucose (74-99) mg/dL POC Glucose (mg/dL) 28 L 256 H 238 H (75-99) mg/dL Calcium (8.4-10.2) mg/dL Magnesium (1.6-2.3) mg/dL Alkaline Phosphatase (38-126) U/L Ur Leukocyte Esterase (Negative) Urine WBC (0-5) /hpf Urine Bacteria (None) /hpf Urine Mucus (None) /hpf 11/24/20 11/24/20 11/24/20 Range/Units 02:20 02:25 02:33 RBC (4.30-5.90) m/uL Hgb (13.0-17.5) gm/dL Hct (39.0-53.0) % Plt Count (150-450) k/uL Lymphocytes # (1.0-4.8) k/uL ABG pH (7.35-7.45) ABG pCO2 (35-45) mmHg ABG pO2 (83-108) mmHg ABG HCO3 (21-25) mmol/L ABG O2 Saturation (94-97) % Potassium (3.5-5.1) mmol/L Chloride (98-107) mmol/L Carbon Dioxide (22-30) mmol/L Creatinine (0.66-1.25) mg/dL Glucose (74-99) mg/dL POC Glucose (mg/dL) 197 H 170 H 124 H (75-99) mg/dL Calcium (8.4-10.2) mg/dL Magnesium (1.6-2.3) mg/dL Alkaline Phosphatase (38-126) U/L Ur Leukocyte Esterase (Negative) Urine WBC (0-5) /hpf Urine Bacteria (None) /hpf Urine Mucus (None) /hpf 02/11/24/20 11/24/20 Range/Units 02:37 02:46 02:57 RBC (4.30-5.90) m/uL Hgb (13.0-17.5) gm/dL Hct (39.0-53.0) % Plt Count (150-450) k/uL Lymphocytes # (1.0-4.8) k/uL ABG pH 7.17 L* (7.35-7.45) ABG pCO2 55 H (35-45) mmHg ABG pO2 121 H (83-108) mmHg ABG HCO3 20 L (21-25) mmol/L ABG O2 Saturation 99.0 H (94-97) % Potassium (3.5-5.1) mmol/L Chloride (98-107) mmol/L Carbon Dioxide (22-30) mmol/L Creatinine (0.66-1.25) mg/dL Glucose (74-99) mg/dL POC Glucose (mg/dL) 266 H 219 H (75-99) mg/dL Calcium (8.4-10.2) mg/dL Magnesium (1.6-2.3) mg/dL Alkaline Phosphatase (38-126) U/L Ur Leukocyte Esterase (Negative) Urine WBC (0-5) /hpf Urine Bacteria (None) /hpf Urine Mucus (None) /hpf 11/24/20 11/24/20 11/24/20 Range/Units 03:07 03:14 03:14 RBC 2.82 L (4.30-5.90) m/uL Hgb 8.9 L D (13.0-17.5) gm/dL Hct 27.3 L (39.0-53.0) % Plt Count (150-450) k/uL Lymphocytes # 0.8 L (1.0-4.8) k/uL ABG pH (7.35-7.45) ABG pCO2 (35-45) mmHg ABG pO2 (83-108) mmHg ABG HCO3 (21-25) mmol/L ABG O2 Saturation (94-97) % Potassium (3.5-5.1) mmol/L Chloride 112 H (98-107) mmol/L Carbon Dioxide 21 L (22-30) mmol/L Creatinine 1.52 H (0.66-1.25) mg/dL Glucose 292 H (74-99) mg/dL POC Glucose (mg/dL) 183 H (75-99) mg/dL Calcium 7.8 L (8.4-10.2) mg/dL Magnesium 1.5 L (1.6-2.3) mg/dL Alkaline Phosphatase (38-126) U/L Ur Leukocyte Esterase (Negative) Urine WBC (0-5) /hpf Urine Bacteria (None) /hpf Urine Mucus (None) /hpf 11/24/20 11/24/20 11/24/20 Range/Units 03:47 04:02 04:47 RBC (4.30-5.90) m/uL Hgb (13.0-17.5) gm/dL Hct (39.0-53.0) % Plt Count (150-450) k/uL Lymphocytes # (1.0-4.8) k/uL ABG pH 7.22 L (7.35-7.45) ABG pCO2 (35-45) mmHg ABG pO2 (83-108) mmHg ABG HCO3 18 L (21-25) mmol/L ABG O2 Saturation 97.6 H (94-97) % Potassium (3.5-5.1) mmol/L Chloride (98-107) mmol/L Carbon Dioxide (22-30) mmol/L Creatinine (0.66-1.25) mg/dL Glucose (74-99) mg/dL POC Glucose (mg/dL) 112 H 67 L (75-99) mg/dL Calcium (8.4-10.2) mg/dL Magnesium (1.6-2.3) mg/dL Alkaline Phosphatase (38-126) U/L Ur Leukocyte Esterase (Negative) Urine WBC (0-5) /hpf Urine Bacteria (None) /hpf Urine Mucus (None) /hpf 11/24/20 11/24/20 11/24/20 Range/Units 05:02 05:36 07:01 RBC (4.30-5.90) m/uL Hgb (13.0-17.5) gm/dL Hct (39.0-53.0) % Plt Count (150-450) k/uL Lymphocytes # (1.0-4.8) k/uL ABG pH (7.35-7.45) ABG pCO2 (35-45) mmHg ABG pO2 (83-108) mmHg ABG HCO3 (21-25) mmol/L ABG O2 Saturation (94-97) % Potassium (3.5-5.1) mmol/L Chloride (98-107) mmol/L Carbon Dioxide (22-30) mmol/L Creatinine (0.66-1.25) mg/dL Glucose (74-99) mg/dL POC Glucose (mg/dL) 160 H 130 H 64 L (75-99) mg/dL Calcium (8.4-10.2) mg/dL Magnesium (1.6-2.3) mg/dL Alkaline Phosphatase (38-126) U/L Ur Leukocyte Esterase (Negative) Urine WBC (0-5) /hpf Urine Bacteria (None) /hpf Urine Mucus (None) /hpf 11/24/20 11/24/20 11/24/20 Range/Units 07:19 07:40 08:15 RBC (4.30-5.90) m/uL Hgb (13.0-17.5) gm/dL Hct (39.0-53.0) % Plt Count (150-450) k/uL Lymphocytes # (1.0-4.8) k/uL ABG pH (7.35-7.45) ABG pCO2 (35-45) mmHg ABG pO2 (83-108) mmHg ABG HCO3 (21-25) mmol/L ABG O2 Saturation (94-97) % Potassium (3.5-5.1) mmol/L Chloride (98-107) mmol/L Carbon Dioxide (22-30) mmol/L Creatinine (0.66-1.25) mg/dL Glucose (74-99) mg/dL POC Glucose (mg/dL) 52 L 138 H 102 H (75-99) mg/dL Calcium (8.4-10.2) mg/dL Magnesium (1.6-2.3) mg/dL Alkaline Phosphatase (38-126) U/L Ur Leukocyte Esterase (Negative) Urine WBC (0-5) /hpf Urine Bacteria (None) /hpf Urine Mucus (None) /hpf 11/24/20 11/24/20 Range/Units 11:18 11:20 RBC (4.30-5.90) m/uL Hgb (13.0-17.5) gm/dL Hct (39.0-53.0) % Plt Count (150-450) k/uL Lymphocytes # (1.0-4.8) k/uL ABG pH (7.35-7.45) ABG pCO2 (35-45) mmHg ABG pO2 (83-108) mmHg ABG HCO3 (21-25) mmol/L ABG O2 Saturation (94-97) % Potassium (3.5-5.1) mmol/L Chloride (98-107) mmol/L Carbon Dioxide (22-30) mmol/L Creatinine (0.66-1.25) mg/dL Glucose (74-99) mg/dL POC Glucose (mg/dL) 42 L 59 L (75-99) mg/dL Calcium (8.4-10.2) mg/dL Magnesium (1.6-2.3) mg/dL Alkaline Phosphatase (38-126) U/L Ur Leukocyte Esterase (Negative) Urine WBC (0-5) /hpf Urine Bacteria (None) /hpf Urine Mucus (None) /hpf Assessment and Plan Assessment: Recurrent syncope, etiology unclear, Status post fall with right ankle trimalleolar fracture status post reduction, surgery pending Hypoglycemia, etiology unclear, PSA ordered Hypotension, pressor's weaned off CAD Hypertension, history of Hypomagnesemia Plan: Continue on current medication regime ,monitoring and symptomatic treatment. Echo results pending. Scheduled for orthopedic surgery tomorrow. Close monitoring of Accu-Cheks. Magnesium replacement protocol ordered. Close monitoring of renal function, electrolytes with repeat labs ordered for a.m. Further recommendations to follow. The impression and plan of care has been dictated as directed. : I performed a history and examination of this patient, discussed the same with the dictator. I agree with the dictator's note ,documented as a scribe. Any additional findings or plans will be noted.
--- NOTE | 2020-11-24 16:44 | P.CNPUL ---
History of Present Illness Consult date: 11/24/20 Requesting physician: Kenneth Luciano Reason for consult: other (Persistent hypoglycemia) Chief complaint: Syncopal episode and ankle fracture History of present illness: This is an 80-year-old white male with history of multiple medical problems including coronary artery disease, hypertension, dyslipidemia, patient fell at home, apparently was a witnessed episode of unresponsiveness, patient fell to the ground, and he was out for several seconds. Apparently the patient had a similar episode in the past, and his last episode was a month ago. However at the time did not seek any medical attention. Upon waking up, patient was complaining of right ankle pain, and thoracic back pain. Patient was seen in the ER, and he was admitted to the cardiac floor. However around 3:20 AM, the rapid response team responded to this patient with altered mental status, and he became up done didn't and unresponsive. Apparently the patient had hyperkalemia on admission, and he was given insulin as well as 1 amp of D50. Patient suddenly became unresponsive and his blood sugar was noted to be 28. Patient was given multiple amps of D50, transferred to the ICU, and he was also noted to be relatively hypotensive with a blood pressure of 82/47. O2 saturation was 95% on room air. Patient had to be placed on D10 W at the rate of 100 mL per hour, because he kept having low blood sugars in the first few hours after transfer to the ICU. Presently the patient is on D10W, running at 100 mL per hour, and we are monitoring his blood sugars on a hourly basis. Patient was seen by many consultants including cardiology, orthopedics, and he was also seen by internal medicine labs on admission showed relatively normal CBC. ABG showed a pO2 of 91 pCO2 of 43 pH of 7.22, urinalysis is suspicious for UTI patient has obviously pyuria and bacteriuria. Lactic acid on admission was 1.7. Renal functioning showed evidence of acute kidney injury with creatinine of 1.7 on admission follow-up creatinine is 1.5 to this morning. Right ankle CT showed trimalleolar fracture, status post reduction chest x-ray showed no acute cardiopulmonary process. Review of Systems Constitutional: Negative HEENT: Negative Pulmonary: Negative Cardiac: Negative GI: History of chronic diarrhea and previous bowel surgery. patient is maintained on Sandostatin Genitourinary: Negative Musculoskeletal: Right ankle pain Neurologic: As noted in HPI. Hematologic: No clotting bleeding or bruising Psychiatric: No symptoms of active depression. Skin: No rashes. Past Medical History Past Medical History: Coronary Artery Disease (CAD), Cancer, GERD/Reflux, Hyperlipidemia, Hypertension, Osteoarthritis (OA), Prostate Disorder, Syncope Additional Past Medical History / Comment(s): HX OF PROSTATE AND COLON CANCER, SKIN CANCER ON NOSE AND RIGHT EAR, BACK PAIN, chronic diarrhea (8 months). History of sigmoid diverticulosis, ileus, carcinoid syndrome History of Any Multi-Drug Resistant Organisms: None Reported Past Surgical History: Bowel Resection, Cholecystectomy, Coronary Bypass/CABG, Heart Catheterization, Hernia Repair, Prostate Surgery Additional Past Surgical History / Comment(s): X2 PENILE IMPLANT, RADIOACTIVE SEEDS FOR PROSTATE CANCER, FUNDOPLICATION & REVISION, EGD, LASIK EYE SURG, VASECTOMY. , STATES BILATERAL INGUINAL HERNIA REPAIR. bowel resect Past Anesthesia/Blood Transfusion Reactions: No Reported Reaction Past Psychological History: No Psychological Hx Reported Smoking Status: Never smoker Past Alcohol Use History: None Reported Past Drug Use History: None Reported - Past Family History Mother Family Medical History: No Reported History Medications and Allergies Home Medications Medication Instructions Recorded Confirmed Type Omeprazole [PriLOSEC] 40 mg PO DAILY 03/18/16 11/23/20 History Aspirin EC [Ecotrin Low Dose] 81 mg PO DAILY 07/29/16 11/23/20 History Folic Acid 1 mg PO DAILY 07/29/16 11/23/20 History Dicyclomine [Bentyl] 20 mg PO QID PRN 04/21/19 11/23/20 History Diphenox-Atrop 2.5-0.025 mg 2 tab PO QID PRN 04/21/19 11/23/20 History [Lomotil] Gabapentin [Neurontin] 600 mg PO BID 04/21/19 11/23/20 History Simvastatin [Zocor] 20 mg PO HS 04/21/19 11/23/20 History DULoxetine HCL [Cymbalta] 60 mg PO BID 04/04/20 11/23/20 History Fluticasone Nasal [place] [Flonase 2 spr EA NOSTRIL DAILY 04/04/20 11/23/20 History Nasal [place]] Magnesium Oxide [[place]] 500 mg PO DAILY 04/04/20 11/23/20 History Octreotide Acetate,Mi-Spheres 30 mg IM Q30D 04/04/20 11/23/20 History [SandoSTATIN LAR [place]] Prevagen 1 tab PO DAILY 04/04/20 11/23/20 History QUEtiapine FUMARATE [QUEtiapine 200 mg PO HS 04/04/20 11/23/20 History FUMARATE ER] Mansoor-Forte 1mg 1 mg PO DAILY 04/04/20 11/23/20 History Loratadine [Claritin] 10 mg PO HS tab 06/03/20 11/23/20 Rx Multivitamins, Thera [Multivitamin 1 tab PO DAILY 10/30/20 11/23/20 History (formulary)] Octreotide Acetate,Mi-Spheres 10 mg IM Q30D 10/30/20 11/23/20 History [SandoSTATIN LAR [place]] polyethylene glycoL 3350 [Miralax] 17 gm PO DAILY PRN 11/23/20 11/23/20 History Allergies Allergy/AdvReac Type Severity Reaction Status Date / Time No Known Allergies Allergy Verified 10/30/20 18:55 Physical Exam Vitals: Vital Signs Temp Pulse Pulse Resp BP BP Pulse Ox 11/24/20 07:00 93 13 113/67 100 11/24/20 06:30 96 8 L 115/66 99 11/24/20 06:00 95 9 L 110/74 100 11/24/20 05:30 94 12 120/64 100 11/24/20 05:00 98 10 L 121/68 99 11/24/20 04:30 100 6 L 129/69 99 11/24/20 04:00 97.4 F L 117 H 14 139/101 96 11/24/20 03:33 10 L 11/24/20 03:30 92 10 L 107/57 100 11/24/20 03:08 101 H 13 11/24/20 02:55 100 11/24/20 02:45 109 H 19 88/48 95 11/23/20 18:59 94 18 137/95 94 L Intake and Output 11/24/20 11/24/20 11/24/20 06:59 14:59 22:59 Intake Total 262.32 75 Output Total 100 150 Balance 162.32 -75 Intake: IV 250 75 Dextrose 10% in Water 500 100 75 ml In Empty Bag 1 bag @ 50 mls/hr IV .Q10H [facility] Rx #:[id number] Dextrose 5%-0.9% NaCl 1, 150 000 ml @ 150 mls/hr IV . Q6H40M [facility] Rx#:[id number] Intake, IV Titration 12.32 Amount Norepinephrine 4 mg In 12.32 Sodium Chloride 0.9% 250 ml @ 0.05 MCG/KG/MIN 12. 529 mls/hr IV .[id number] [facility] Rx#:[id number] Output: Urine 100 150 Other: Voiding Method External Catheter # Voids 1 General: Physical exam revealed 80-year-old white male, in no distress. HEENT: anicteric sclerae, moist conjunctiva, no lid-lag, PERRLA EOMI, dry mucous membranes. Cardiovascular: Normal S1 and S2, no S3 gallop, no murmur. Lungs: Medical chest expansion, clear throughout, no crackles or rhonchi or wheezes. Abdominal: Nontender no megaly no rebound no guarding. Skin: Warm, dry Extremities: Right lower extremity seems to be immobilized by orthopedic surgery. Psychiatric: Normal mood, affect and normal mental status examination. Neuro: Alert and oriented 3, no gross focal neurologic deficits. Results - Laboratory Findings CBC and BMP: 11/24/20 03:14 11/24/20 03:14 ABG ABG pH 7.22 (7.35-7.45) L 11/24/20 03:47 ABG pCO2 43 mmHg (35-45) 11/24/20 03:47 ABG pO2 91 mmHg (83-108) 11/24/20 03:47 ABG O2 Saturation 97.6 % (94-97) H 11/24/20 03:47 PT/INR, D-dimer PT 10.8 sec (9.0-12.0) 11/23/20 17:35 INR 1.0 (<1.2) 11/23/20 17:35 Abnormal lab findings: Abnormal Labs 11/23/20 11/23/20 11/23/20 16:28 16:28 17:35 RBC 3.75 L Hgb 11.5 L Hct 34.6 L Plt Count 147 L Lymphocytes # ABG pH ABG pCO2 ABG pO2 ABG HCO3 ABG O2 Saturation Potassium 5.6 H Chloride Carbon Dioxide 19 L Creatinine 1.70 H Glucose POC Glucose (mg/dL) Calcium Magnesium Alkaline Phosphatase 144 H Ur Leukocyte Esterase Large H Urine WBC >182 H Urine Bacteria Few H Urine Mucus Rare H 11/24/20 11/24/20 11/24/20 02:07 02:14 02:16 RBC Hgb Hct Plt Count Lymphocytes # ABG pH ABG pCO2 ABG pO2 ABG HCO3 ABG O2 Saturation Potassium Chloride Carbon Dioxide Creatinine Glucose POC Glucose (mg/dL) 28 L 256 H 238 H Calcium Magnesium Alkaline Phosphatase Ur Leukocyte Esterase Urine WBC Urine Bacteria Urine Mucus 11/24/20 11/24/20 11/24/20 02:20 02:25 02:33 RBC Hgb Hct Plt Count Lymphocytes # ABG pH ABG pCO2 ABG pO2 ABG HCO3 ABG O2 Saturation Potassium Chloride Carbon Dioxide Creatinine Glucose POC Glucose (mg/dL) 197 H 170 H 124 H Calcium Magnesium Alkaline Phosphatase Ur Leukocyte Esterase Urine WBC Urine Bacteria Urine Mucus 11/24/20 11/24/20 11/24/20 02:37 02:46 02:57 RBC Hgb Hct Plt Count Lymphocytes # ABG pH 7.17 L* ABG pCO2 55 H ABG pO2 121 H ABG HCO3 20 L ABG O2 Saturation 99.0 H Potassium Chloride Carbon Dioxide Creatinine Glucose POC Glucose (mg/dL) 266 H 219 H Calcium Magnesium Alkaline Phosphatase Ur Leukocyte Esterase Urine WBC Urine Bacteria Urine Mucus 11/24/20 11/24/20 11/24/20 03:07 03:14 03:14 RBC 2.82 L Hgb 8.9 L D Hct 27.3 L Plt Count Lymphocytes # 0.8 L ABG pH ABG pCO2 ABG pO2 ABG HCO3 ABG O2 Saturation Potassium Chloride 112 H Carbon Dioxide 21 L Creatinine 1.52 H Glucose 292 H POC Glucose (mg/dL) 183 H Calcium 7.8 L Magnesium 1.5 L Alkaline Phosphatase Ur Leukocyte Esterase Urine WBC Urine Bacteria Urine Mucus 11/24/20 11/24/20 11/24/20 03:47 04:02 04:47 RBC Hgb Hct Plt Count Lymphocytes # ABG pH 7.22 L ABG pCO2 ABG pO2 ABG HCO3 18 L ABG O2 Saturation 97.6 H Potassium Chloride Carbon Dioxide Creatinine Glucose POC Glucose (mg/dL) 112 H 67 L Calcium Magnesium Alkaline Phosphatase Ur Leukocyte Esterase Urine WBC Urine Bacteria Urine Mucus 11/24/20 11/24/20 11/24/20 05:02 05:36 07:01 RBC Hgb Hct Plt Count Lymphocytes # ABG pH ABG pCO2 ABG pO2 ABG HCO3 ABG O2 Saturation Potassium Chloride Carbon Dioxide Creatinine Glucose POC Glucose (mg/dL) 160 H 130 H 64 L Calcium Magnesium Alkaline Phosphatase Ur Leukocyte Esterase Urine WBC Urine Bacteria Urine Mucus 11/24/20 11/24/20 11/24/20 07:19 07:40 08:15 RBC Hgb Hct Plt Count Lymphocytes # ABG pH ABG pCO2 ABG pO2 ABG HCO3 ABG O2 Saturation Potassium Chloride Carbon Dioxide Creatinine Glucose POC Glucose (mg/dL) 52 L 138 H 102 H Calcium Magnesium Alkaline Phosphatase Ur Leukocyte Esterase Urine WBC Urine Bacteria Urine Mucus 11/24/20 11/24/20 11:18 11:20 RBC Hgb Hct Plt Count Lymphocytes # ABG pH ABG pCO2 ABG pO2 ABG HCO3 ABG O2 Saturation Potassium Chloride Carbon Dioxide Creatinine Glucose POC Glucose (mg/dL) 42 L 59 L Calcium Magnesium Alkaline Phosphatase Ur Leukocyte Esterase Urine WBC Urine Bacteria Urine Mucus - Diagnostic Findings Chest x-ray: image reviewed (As noted in HPI.) Assessment and Plan Assessment: Impression: Recurrent episodes of hypoglycemia, exact etiology is not clear, likely secondary to the fact that the patient is on Sandostatin. Doubt insulinoma Acute metabolic encephalopathy secondary to hypoglycemia. Mild hypercapnia due to hypoglycemia and metabolic encephalopathy, resolved. Acute kidney injury, most likely secondary to dehydration, improving with IV fluids. Acute hyperkalemia secondary to acute metabolic acidosis, possible sepsis. Acute urinary tract infection is strongly suspected, cultures are pending. Acute trimalleolar ankle fracture secondary to fall/syncope. Syncope secondary to recurrent episodes of hypoglycemia. History of coronary artery disease. History of dyslipidemia. History of prostate and colon cancer. History of coronary artery disease and previous CABG. History of chronic GERD. Hyperkalemia secondary to renal failure and metabolic acidosis. Recommendation: Continue to monitor the patient in the ICU. Continue D10W drip. Continue to monitor sugars hourly. Hydrate patient. Empiric antibiotics for UTI and check urine cultures. Patient to be seen by different consultants including orthopedics, cardiology and possibly neurology. We'll continue to follow as long as the patient is requiring D10W drip. C-peptide was ordered. Time with Patient: Greater than 30
--- NOTE | 2020-11-24 16:50 | P.PN ---
Progress Note - Text Progress Note Date: 11/24/20 Orthopedic Surgery Risk Review Reinier Bajwa is a 80 yo male presenting for evaluation of sudden onset Right side ankle pain, inability to ambulate after fall from standing. It was my pleasure to have seen and examined Reinier Bajwa. In our visit today we have had a chance to go over subjective complaints, physical examination findings and treatments including the natural course history without intervention and various interventional options. His imaging demonstrates displaced trimalleolar ankle fracture dislocation. On physical exam, Reinier Bajwa demonstrates pain with motion of RIGHT ankle, which is NV intact at this time. I have explained to the patient that this fracture needs stabilization. Based on the patients imaging, physical exam, and the rapid progression and disabling nature of her symptoms, at this time I recommend surgery in the form or a: ORIF right ankle I discussed the risk and benefits of this procedure at length with Reinier Bajwa. Questions were invited and answered, and the patient wishes to proceed as outlined below. Currently, I am recommendin. RIGHT ankle open reduction and internal fixation 2. Review of surgical risks and benefits as well as an educational packet on the proposed surgical procedure. Risks: All surgical procedures come with inherent risks, including those related to positioning, anesthesia, intraoperative findings, and postoperative complications. It is important to understand that surgery does not come with any guarantee of a successful outcome as complications and adverse events are always possible. The patient was given a handout discussing the surgical procedure and risks associated with the intervention, both of which were discussed with the patient. These risks include but are not limited to the following: - Experiencing same, different or even worse symptoms compared to before surgery. - Requiring further surgery or other forms of treatment presently or at some time in the future . - On an extreme but fortunately relatively rare basis severe complication such as blindness, stroke, heart attack, temporary and/or permanent nerve injury, paralysis, coma, or may occur, sometimes without known explanation. - Surgical complications may include but are not limited to risk of infection, fluid accumulation in the surgical dissection site, including a seroma or hematoma, that requires additional surgery, wound drainage, bleeding, new numbness or weakness, vision changes/loss, spinal fluid leakage, non-healing and/or infected incision, headaches, difficulty or inability to swallow, hoarseness, hemopneumothorax, pneumothorax, injury to nerves, spinal cord, blood vessels, lymphatics or other vital organs (i.e., bowel injury, injury to the great vessels); heterotopic bone formation; complications related to the hardware such as screws, rods, including misplaced hardware, device failure, hardware fracture/breakage, or hardware loosening; retained surgical instrumentations or devices and the need for further surgery. - Medical risks of the planned surgery include but are not limited to generalized Infections to the whole body or local areas outside of the surgical site (sepsis), heart attack, bleeding, anaphylaxis, meningitis, seizure, epilepsy, hearing loss, burn rosas, laceration of the head or other areas of the body, bruising, hypersensitivity of the skin, bladder over distension; allergic reaction; shoulder injury related to positioning; fat, blood and air clots to other areas of the body like heart, lungs, brain; failure of internal organs such as lungs, kidneys, liver and excessive bleeding. If blood transfusions are necessary, note that transfusions may cause intolerance reactions such as anaphylaxis or other complex reactions. Despite best efforts, the results of surgery might not heal in terms of bone, soft tissues such as skin, fascia, ligaments, and joints. [facility] is an educational center that serves as a training facility for physician assistants, nurses, orthopedic residents and fellows. Residents are physicians who are completing their surgical intensive training following medical school. They assist in the operating room with direct supervision of the attending surgeons. [place] are surgeons who have completed their training and eligible for board certification. They have opted for an elective year of more specialized training in their field. They assist in the operating room under the supervision of the attending surgeons. Physician assistants are medically trained surgical providers who function in the outpatient, inpatient, and operating room setting under the direct supervision of the attending surgeon. [facility] has multiple operating rooms with single and overlapping rooms running daily. They currently function under the required guidelines as produced by the [facility] [employer] with regards to the overlapping rooms and will continue to comply with changes to this policy as they occur. The requirements include and are complied with as follows: (1) the critical portions of the overlapping rooms will not occur at the same time, (2) the attending physician will be physically present during the critical portions of the procedure and immediately available during the entire case, and (3) a back-up attending is designated should the primary attending not be immediately available. The patient has had a chance to review all the listed information, has been given print outs detailing this information, and has had all his/her questions answered to their satisfaction. It was my pleasure to have seen and examined Reinier Bajwa. In our visit today we have had a chance to go over my understanding of our patient's current condition, the natural course history without intervention and various intervent ional options. Questions were invited and answered, and the patient wishes to proceed as outlined above. I have seen and examined the patient for 25 minutes and we have spent more than 50% of the time in repeat and detailed counseling about the patient's condition, its natural course history with out and as much as can be predicted with surgery and re-review of various surgical treatment options. In conclusion, Reinier Bajwa requested we proceed with the above suggested surgery and are willing to accept risks and limitations of the suggested surgery as nature of the disease process and our best attempts at treatment for the condition. Thank you again for allowing us to be part of your patient's care. Please don't hesitate to contact me if you have any further questions. Signed and authenticated by: Brijesh Schaeffer [facility] [address] [facility], [address] [address]
[2020-11-24] MEDS: LACTATED RINGERS 1,000 ML IV SCH (16:53)
--- NOTE | 2020-11-24 18:00 | ECHOF ---
Referral Reason:syncope MEASUREMENTS -------- HEIGHT: 170.2 cm WEIGHT: 79.4 kg BP: 117/67 IVSd: 1.4 cm (0.6 - 1.1) LVIDd: 4.4 cm (3.9 - 5.3) LVPWd: 1.4 cm (0.6 - 1.1) IVSs: 1.8 cm LVIDs: 2.9 cm LVPWs: 2.1 cm LA Diam: 3.9 cm (2.7 - 3.8) RVIDd: 3.3 cm (< 3.3) Ao Diam: 3.4 cm (2.0 - 3.7) AV Cusp: 2.0 cm (1.5 - 2.6) EPSS: 2.6 cm MV E Jovanny: 0.88 m/s MV DecT: 226 ms MV A Jovanny: 1.08 m/s MV E/A Ratio: 0.81 RAP: 5.00 mmHg RVSP: 22.84 mmHg MV EF SLOPE: 54.54 mm/s (70 - 150) MV EXCURSION: 19.54 mm (> 18.000) FINDINGS -------- Sinus rhythm. This was a technically adequate study. The left ventricular size is normal. There is moderate concentric left ventricular hypertrophy. O verall left ventricular systolic function is normal with, an EF between 60 - 65 %. The right ventricle is mildly enlarged. The left atrium is normal in size. The right atrium is normal in size. The aortic valve is trileaflet, and appears structurally normal. No aortic stenosis or regurgitation. The mitral valve leaflets are mildly thickened. Mild tricuspid regurgitation present. Right ventricular systolic pressure is normal at < 35 mmHg. The pulmonic valve was not well visualized. The aortic root size is normal. IVC Not well visulized. There is no pericardial effusion. CONCLUSIONS -------- 1. The left ventricular size is normal. 2. There is moderate concentric left ventricular hypertrophy. 3. Overall left ventricular systolic function is normal with, an EF between 60 - 65 %. 4. The right ventricle is mildly enlarged. 5. The mitral valve leaflets are mildly thickened. 6. Mild tricuspid regurgitation present. 7. There is no pericardial effusion. CAREER PLACEMENT SERVICES COUNSELOR: Laurita Ospina [facility]
[2020-11-24 18:19] LABS: Glucose,Whole Blood 135 mg/dL (75-99)
[2020-11-24] MEDS ORDERED: QUEtiapine 25 MG TAB PO STA (19:34)
[2020-11-24 21:00] LABS: Glucose,Whole Blood 209 mg/dL (75-99)
[2020-11-24] MEDS: ATORVASTATIN 10 MG TAB PO SCH (21:16)
[2020-11-24] MEDS: LORATADINE 10 MG TAB PO SCH (21:16)
[2020-11-24] MEDS: QUEtiapine 100 MG TAB PO SCH (21:17)
[2020-11-24 21:57] LABS: Glucose,Whole Blood 236 mg/dL (75-99)
[2020-11-24 22:48] LABS: Glucose,Whole Blood 219 mg/dL (75-99)
[2020-11-24 23:53] LABS: Glucose,Whole Blood 187 mg/dL (75-99)
[2020-11-25 00:59] LABS: Glucose,Whole Blood 167 mg/dL (75-99)
[2020-11-25 02:06] LABS: Glucose,Whole Blood 135 mg/dL (75-99)
[2020-11-25 03:50] LABS: Glucose,Whole Blood 115 mg/dL (75-99)
[2020-11-25 04:01] LABS: Basophils % (A) 0 %; Eosinophils # (A) 0.1 k/uL (0-0.7); Eosinophils % (A) 1 %; HCT 29.2 % (39.0-53.0); HGB 9.9 gm/dL (13.0-17.5); Lymphocytes # (A) 1.3 k/uL (1.0-4.8); Lymphocytes % (A) 14 %; MCH 32.3 pg (25.0-35.0); MCHC 33.9 g/dL (31.0-37.0); MCV 95.1 fL (80.0-100.0); Mean Platelet Volume 7.2; Monocytes # (A) 0.3 k/uL (0-1.0); Monocytes % (A) 4 %; Neutrophils # (A) 7.2 k/uL (1.3-7.7); Neutrophils % (A) 80 %; Platelet Count 153 k/uL (150-450); RBC 3.07 m/uL (4.30-5.90); RDW 12.4 % (11.5-15.5); WBC 9.1 k/uL (3.8-10.6)
[2020-11-25 04:20] LABS: Albumin 3.3 g/dL (3.5-5.0); Potassium 5.5 mmol/L (3.5-5.1); Total Bilirubin 0.5 mg/dL (0.2-1.3); Total Protein 6.3 g/dL (6.3-8.2)
[2020-11-25] MEDS: DEXTROSE 10% IN WATER 500 ML in EMPTY BAG 1 BAG IV SCH (04:28)
[2020-11-25 05:47] LABS: Glucose,Whole Blood 99 mg/dL (75-99)
[2020-11-25 06:52] LABS: Glucose,Whole Blood 92 mg/dL (75-99)
[2020-11-25] MEDS ORDERED: fentaNYL (PF) 50 MCG/ML 2 ML AMP IV PRN (07:00)
[2020-11-25] MEDS ORDERED: HYDROmorphone 0.5 MG/0.5 ML SYRINGE IVP PRN (07:00)
[2020-11-25 08:14] LABS: Glucose,Whole Blood 103 mg/dL (75-99)
--- NOTE | 2020-11-25 08:35 | XR ---
EXAMINATION TYPE: XR chest 1V portable DATE OF EXAM: 11/25/2020 Comparison: 11/23/2020 Clinical History: 80-year-old male shortness of breath. FINDINGS: Median sternotomy wires are present with post-CABG clips in the mediastinum. Heart upper limits of no rmal in size. Aorta and pulmonary vasculature within normal limits. No consolidation or pleural effus ion. IMPRESSION: No acute cardiopulmonary process.
[2020-11-25] MEDS: FLUTICASONE 50MCG/SPRAY NASAL 16GM EA NOSTRIL SCH (09:45)
[2020-11-25] MEDS: MAGNESIUM OXIDE 400 MG TAB PO SCH (09:45)
[2020-11-25] MEDS: ASPIRIN 81 MG PO SCH (09:45)
[2020-11-25] MEDS: GABAPENTIN 300 MG CAP PO SCH ×2 (09:45→20:14)
[2020-11-25] MEDS: FOLIC ACID 1 MG TAB PO SCH (09:45)
[2020-11-25] MEDS: DULoxetine HCL 60 MG CAPSULE.DR PO SCH ×2 (09:45→20:14)
[2020-11-25] MEDS: MULTIVITAMINS, THERA 1 EACH TAB PO SCH (09:45)
[2020-11-25] MEDS: DEXTROSE 5%-0.9% NACL 1,000 ML IV SCH (09:53)
[2020-11-25 09:59] LABS: Glucose,Whole Blood 96 mg/dL (75-99)
--- NOTE | 2020-11-25 11:21 | P.PN ---
Subjective Progress Note Date: 11/25/20 Principal diagnosis: Recurrent syncope This is a very pleasant 80-year-old gentleman who was admitted to the hospital with recurrent syncope. He is known to have coronary artery disease. The patient was seen this morning. Overall he is feeling better. His blood sugar has improved and also his blood pressure. He denies any symptoms of chest pain or chest discomfort. No arrhythmia was noted overnight. The echocardiogram revealed normal left ventricle systolic function. Objective - Vital Signs Vital signs: Vital Signs Temp 98.2 F 11/25/20 08:00 Pulse 80 11/25/20 10:00 Resp 16 11/25/20 10:00 BP 169/94 11/25/20 10:00 Pulse Ox 95 11/25/20 10:00 Intake & Output 11/24/20 11/25/20 11/25/20 18:59 06:59 18:59 Intake Total 1525 1070 300 Output Total 1496 1325 620 Balance 29 -255 -320 Weight 70.6 kg Intake: IV 775 1070 300 Dextrose 10% in Water 500 775 245 0 ml In Empty Bag 1 bag @ 75 mls/hr IV .Q6H40M [facility] Rx#:[id number] Dextrose 5%-0.9% NaCl 1, 75 000 ml @ 150 mls/hr IV . Q6H40M [facility] Rx#:[id number] Sodium Chloride 0.9% 1, 825 225 000 ml @ 75 mls/hr IV . [id number] [facility] Rx#:[id number] Intake, IV Titration 750 Amount Dextrose 10% in Water 500 350 ml In Empty Bag 1 bag @ 75 mls/hr IV .Q6H40M [facility] Rx#:[id number] Magnesium Sulfate-D5w Pmx 200 1 gm In Dextrose/Water 1 100ml.bag @ 100 mls/hr IVPB Q1H [facility] Rx#: [id number] Potassium Chloride 10 meq 200 In Water For Injection 1 100ml.bag @ 100 mls/hr IVPB Q1H [facility] Rx#: [id number] Output: Urine 1496 1325 620 Other: Voiding Method External Catheter External Catheter External Catheter - Constitutional General appearance: Present: no acute distress - Respiratory Respiratory: bilateral: CTA - Cardiovascular Rhythm: regular Heart sounds: normal: S1, S2 - Labs CBC & Chem 7: 11/25/20 03:46 11/25/20 03:46 Labs: Abnormal Lab Results - Last 24 Hours (Table) 11/24/20 11/24/20 11/24/20 Range/Units 11:18 11:20 14:17 RBC (4.30-5.90) m/uL Hgb (13.0-17.5) gm/dL Hct (39.0-53.0) % Sodium (137-145) mmol/L Potassium (3.5-5.1) mmol/L Carbon Dioxide (22-30) mmol/L Creatinine (0.66-1.25) mg/dL Glucose (74-99) mg/dL POC Glucose (mg/dL) 42 L 59 L (75-99) mg/dL C-Peptide 0.10 L (0.81-3.85) ng/mL AST (17-59) U/L ALT (4-49) U/L Alkaline Phosphatase (38-126) U/L Albumin (3.5-5.0) g/dL 11/24/20 11/24/20 11/24/20 Range/Units 17:34 18:18 20:58 RBC (4.30-5.90) m/uL Hgb (13.0-17.5) gm/dL Hct (39.0-53.0) % Sodium (137-145) mmol/L Potassium 5.8 H (3.5-5.1) mmol/L Carbon Dioxide (22-30) mmol/L Creatinine (0.66-1.25) mg/dL Glucose (74-99) mg/dL POC Glucose (mg/dL) 135 H 209 H (75-99) mg/dL C-Peptide (0.81-3.85) ng/mL AST (17-59) U/L ALT (4-49) U/L Alkaline Phosphatase (38-126) U/L Albumin (3.5-5.0) g/dL 11/24/20 11/24/20 11/24/20 Range/Units 21:55 22:47 23:51 RBC (4.30-5.90) m/uL Hgb (13.0-17.5) gm/dL Hct (39.0-53.0) % Sodium (137-145) mmol/L Potassium (3.5-5.1) mmol/L Carbon Dioxide (22-30) mmol/L Creatinine (0.66-1.25) mg/dL Glucose (74-99) mg/dL POC Glucose (mg/dL) 236 H 219 H 187 H (75-99) mg/dL C-Peptide (0.81-3.85) ng/mL AST (17-59) U/L ALT (4-49) U/L Alkaline Phosphatase (38-126) U/L Albumin (3.5-5.0) g/dL 11/25/20 11/25/20 11/25/20 Range/Units 00:58 02:04 03:46 RBC (4.30-5.90) m/uL Hgb (13.0-17.5) gm/dL Hct (39.0-53.0) % Sodium 133 L (137-145) mmol/L Potassium 5.5 H (3.5-5.1) mmol/L Carbon Dioxide 21 L (22-30) mmol/L Creatinine 1.39 H (0.66-1.25) mg/dL Glucose 125 H (74-99) mg/dL POC Glucose (mg/dL) 167 H 135 H (75-99) mg/dL C-Peptide (0.81-3.85) ng/mL AST 294 H (17-59) U/L ALT 223 H (4-49) U/L Alkaline Phosphatase 161 H (38-126) U/L Albumin 3.3 L (3.5-5.0) g/dL 11/25/20 11/25/20 11/25/20 Range/Units 03:46 03:48 08:13 RBC 3.07 L (4.30-5.90) m/uL Hgb 9.9 L (13.0-17.5) gm/dL Hct 29.2 L (39.0-53.0) % Sodium (137-145) mmol/L Potassium (3.5-5.1) mmol/L Carbon Dioxide (22-30) mmol/L Creatinine (0.66-1.25) mg/dL Glucose (74-99) mg/dL POC Glucose (mg/dL) 115 H 103 H (75-99) mg/dL C-Peptide (0.81-3.85) ng/mL AST (17-59) U/L ALT (4-49) U/L Alkaline Phosphatase (38-126) U/L Albumin (3.5-5.0) g/dL Microbiology - Last 24 Hours (Table) 11/24/20 08:21 Blood Culture - Preliminary Blood No Growth after 24 hours Assessment and Plan Assessment: Assessment #1 recurrent syncope #2 coronary artery disease #3 hypoglycemia which has improved #4 hypertension #5 multiple comorbid conditions Plan #1 the echocardiogram was reviewed and revealed normal left ventricular systolic function #2 continue monitor the blood pressure and heart rate #3 continue monitor for arrhythmia #4 follow-up with the patient
--- NOTE | 2020-11-25 12:30 | P.PN ---
Progress Note - Text Progress Note Date: 11/25/20 Patient seen and evaluated in the preoperative area. All risks and benefits discussed Again an as outlined in the risk review. Patient is willing and ready to proceed with surgery. Site was marked is given antibiotics preop. He was cleared by medicine as well as anesthesia or procedure today.
[2020-11-25] MEDS ORDERED: MIDAZOLAM 2 MG/2 ML VIAL ONE (13:10)
[2020-11-25] MEDS ORDERED: KETAMINE 10 MG/ML 20 ML VIAL ONE (13:10)
[2020-11-25 13:11] LABS: Glucose,Whole Blood 102 mg/dL (75-99)
[2020-11-25] MEDS ORDERED: LACTATED RINGERS 1,000 ML IV ONE (13:15)
--- NOTE | 2020-11-25 13:41 | P.PN ---
Subjective Progress Note Date: 11/25/20 This is an 80-year-old gentleman status post syncope with fall sustaining right ankle fracture, acute renal failure, hyperkalemia and multiple other medical issues, [facility], became unresponsive with hypoglycemia, calm, hypotensive with systolic blood pressures in the low 80s, ma intaining O2 sats in the 90s on room air and transferred to the ICU. Received IV fluid bolus/IV fluid hydration. Weaned off of Levophed since 299. Currently receiving dextrose 10% with blood sugars ranging from 59 to high 90s. Evaluated by orthopedic surgery and is scheduled for surgery tomorrow. Echo completed, results pending. Telemetry sinus rhythm. Denies chest pain, palpitations or shortness of breath. Afebrile, normal WBC. 11/25/20 blood sugars controlled, maintenance IV changed to D5.9. Creatinine improving, 1.39. Reports right ankle pain .Scheduled for right ankle open reduct ion and internal fixation today. Telemetry sinus rhythm. LFTs increased, T bili within normal limits. Afebrile, normal WBC. Echo reporting normal LV function , EF 60-65% , mild tricuspid regurgitation .Denies chest pain, palpitations or shortness of breath. Maintaining O2 sats in the high 90s on room air. Sitter at bedside, staff reports patient is impulsive at times; apparently last night patient became more confused, agitated and received one time dose of Seroquel. This morning pleasant, cooperative with significant clinical improvement, A & O3. Objective - Vital Signs Vital signs: Vital Signs Temp 98.3 F 11/25/20 12:00 Pulse 87 11/25/20 13:00 Resp 18 11/25/20 13:00 BP 159/96 11/25/20 13:00 Pulse Ox 95 11/25/20 13:00 Intake & Output 11/24/20 11/25/20 11/25/20 18:59 06:59 18:59 Intake Total 1525 1070 525 Output Total 1496 1325 854 Balance 29 -093 -450 Weight 70.6 kg Intake: IV 775 1070 300 Dextrose 10% in Water 500 775 245 0 ml In Empty Bag 1 bag @ 75 mls/hr IV .Q6H40M [facility] Rx#:[id number] Dextrose 5%-0.9% NaCl 1, 75 000 ml @ 150 mls/hr IV . Q6H40M [facility] Rx#:[id number] Sodium Chloride 0.9% 1, 825 225 000 ml @ 75 mls/hr IV . [id number] [facility] Rx#:[id number] Intake, IV Titration 750 225 Amount Dextrose 10% in Water 500 350 ml In Empty Bag 1 bag @ 75 mls/hr IV .Q6H40M [facility] Rx#:[id number] Dextrose 5%-0.9% NaCl 1, 225 000 ml @ 75 mls/hr IV . [id number] [facility] Rx#:[id number] Magnesium Sulfate-D5w Pmx 200 1 gm In Dextrose/Water 1 100ml.bag @ 100 mls/hr IVPB Q1H [facility] Rx#: [id number] Potassium Chloride 10 meq 200 In Water For Injection 1 100ml.bag @ 100 mls/hr IVPB Q1H [facility] Rx#: [id number] Output: Urine 1496 1325 854 Other: Voiding Method External Catheter External Catheter External Catheter - Exam PHYSICAL EXAM: VITAL SIGNS: As above GENERAL: Sitting up in bed, no acute distress HEENT: Conjunctivae normal. eyes normal. NECK: No JVD. No thyroid enlargement. No LNs CARDIOVASCULAR: S1, S2 regular. Systolic murmur. RESPIRATION: Breath sounds diminished in the bases. No rhonchi or crackles. ABDOMEN: Soft, nontender . No guarding. no masses palpable.Bowel sounds heard. LEGS: Right ankle ecchymosis, edema with Al wrap dressing clean dry and intact PSYCHIATRY: Alert and oriented X3, mood and affect normal. NERVOUS SYSTEM: Cranial N 2-12 grossly normal. Moves all 4 limbs. No focal deficits. Strength and sensation grossly intact. Skin: Warm and dry, no rash - Labs CBC & Chem 7: 11/25/20 03:46 11/25/20 03:46 Labs: Abnormal Lab Results - Last 24 Hours (Table) 11/24/20 11/24/20 11/24/20 Range/Units 14:17 17:34 18:18 RBC (4.30-5.90) m/uL Hgb (13.0-17.5) gm/dL Hct (39.0-53.0) % Sodium (137-145) mmol/L Potassium 5.8 H (3.5-5.1) mmol/L Carbon Dioxide (22-30) mmol/L Creatinine (0.66-1.25) mg/dL Glucose (74-99) mg/dL POC Glucose (mg/dL) 135 H (75-99) mg/dL C-Peptide 0.10 L (0.81-3.85) ng/mL AST (17-59) U/L ALT (4-49) U/L Alkaline Phosphatase (38-126) U/L Albumin (3.5-5.0) g/dL 11/24/20 11/24/20 11/24/20 Range/Units 20:58 21:55 22:47 RBC (4.30-5.90) m/uL Hgb (13.0-17.5) gm/dL Hct (39.0-53.0) % Sodium (137-145) mmol/L Potassium (3.5-5.1) mmol/L Carbon Dioxide (22-30) mmol/L Creatinine (0.66-1.25) mg/dL Glucose (74-99) mg/dL POC Glucose (mg/dL) 209 H 236 H 219 H (75-99) mg/dL C-Peptide (0.81-3.85) ng/mL AST (17-59) U/L ALT (4-49) U/L Alkaline Phosphatase (38-126) U/L Albumin (3.5-5.0) g/dL 11/24/20 11/25/20 11/25/20 Range/Units 23:51 00:58 02:04 RBC (4.30-5.90) m/uL Hgb (13.0-17.5) gm/dL Hct (39.0-53.0) % Sodium (137-145) mmol/L Potassium (3.5-5.1) mmol/L Carbon Dioxide (22-30) mmol/L Creatinine (0.66-1.25) mg/dL Glucose (74-99) mg/dL POC Glucose (mg/dL) 187 H 167 H 135 H (75-99) mg/dL C-Peptide (0.81-3.85) ng/mL AST (17-59) U/L ALT (4-49) U/L Alkaline Phosphatase (38-126) U/L Albumin (3.5-5.0) g/dL 11/25/20 11/25/20 11/25/20 Range/Units 03:46 03:46 03:48 RBC 3.07 L (4.30-5.90) m/uL Hgb 9.9 L (13.0-17.5) gm/dL Hct 29.2 L (39.0-53.0) % Sodium 133 L (137-145) mmol/L Potassium 5.5 H (3.5-5.1) mmol/L Carbon Dioxide 21 L (22-30) mmol/L Creatinine 1.39 H (0.66-1.25) mg/dL Glucose 125 H (74-99) mg/dL POC Glucose (mg/dL) 115 H (75-99) mg/dL C-Peptide (0.81-3.85) ng/mL AST 294 H (17-59) U/L ALT 223 H (4-49) U/L Alkaline Phosphatase 161 H (38-126) U/L Albumin 3.3 L (3.5-5.0) g/dL 11/25/20 11/25/20 Range/Units 08:13 13:09 RBC (4.30-5.90) m/uL Hgb (13.0-17.5) gm/dL Hct (39.0-53.0) % Sodium (137-145) mmol/L Potassium (3.5-5.1) mmol/L Carbon Dioxide (22-30) mmol/L Creatinine (0.66-1.25) mg/dL Glucose (74-99) mg/dL POC Glucose (mg/dL) 103 H 102 H (75-99) mg/dL C-Peptide (0.81-3.85) ng/mL AST (17-59) U/L ALT (4-49) U/L Alkaline Phosphatase (38-126) U/L Albumin (3.5-5.0) g/dL Microbiology - Last 24 Hours (Table) 11/24/20 08:21 Blood Culture - Preliminary Blood No Growth after 24 hours Assessment and Plan Assessment: Recurrent syncope, etiology unclear, Status post fall with right ankle trimalleolar fracture status post reduction, surgery pending Hypoglycemia, etiology unclear, PSA ordered, status post D10 IV fluid resuscitation Hypotension, pressor's weaned off CAD Hypertension, history of Hypomagnesemia Plan: Continue on current medication regime ,monitoring and symptomatic t reatment. Scheduled for orthopedic surgery today. PSA level pending. Maintenance IV fluids adjusted, off D10, close monitoring of Accu-Cheks. The impression and plan of care has been dictated as directed. : I performed a history and examination of this patient, discussed the same with the dictator. I agree with the dictator's note ,documented as a scribe. Any additional findings or plans will be noted.
[2020-11-25] MEDS: SODIUM CHLORIDE 0.9% 1,000 ML IV SCH (14:27)
--- NOTE | 2020-11-25 14:52 | P.PN ---
Subjective Progress Note Date: 11/25/20 Principal diagnosis: Acute metabolic encephalopathy secondary to hypoglycemia, likely secondary to dumping syndrome. his is an 80-year-old white male with history of multiple medical problems including coronary artery disease, hypertension, dyslipidemia, patient fell at home, apparently was a witnessed episode of unresponsiveness, patient fell to the ground, and he was out for several seconds. Apparently the patient had a similar episode in the past, and his last episode was a month ago. However at the time did not seek any medical attention. Upon waking up, patient was complaining of right ankle pain, and thoracic back pain. Patient was seen in the ER, and he was admitted to the cardiac floor. However around 3:20 AM, the rapid response team responded to this patient with altered mental status, and he became up done didn't and unresponsive. Apparently the patient had hyperkalemia on admission, and he was given insulin as well as 1 amp of D50. Patient suddenl y became unresponsive and his blood sugar was noted to be 28. Patient was given multiple amps of D50, transferred to the ICU, and he was also noted to be relatively hypotensive with a blood pressure of 82/47. O2 saturation was 95% on room air. Patient had to be placed on D10 W at the rate of 100 mL per hour, because he kept having low blood sugars in the first few hours after transfer to the ICU. Presently the patient is on D10W, running at 100 mL per hour, and we are monitoring his blood sugars on a hourly basis. Patient was seen by many consultants including cardiology, orthopedics, and he was also seen by internal medicine labs on admission showed relatively normal CBC. ABG showed a pO2 of 91 pCO2 of 43 pH of 7.22, urinalysis is suspicious for UTI patient has obviously pyuria and bacteriuria. Lactic acid on admission was 1.7. Renal functioning showed evidence of acute kidney injury with creatinine of 1.7 on admission follow-up creatinine is 1.5 to this morning. Right ankle CT showed trimalleolar fracture, status post reduction chest x-ray showed no acute cardiopulmonary p rocess. Patient was reevaluated today on 11/25/2020, patient remains in the ICU, he is completely off D10 W, blood sugar is maintained in the 90s. Patient is on regular diet, I recommended switching the patient to D5.9 normal saline, and I have recommended GI consultation regarding his chronic diarrhea and dumping syndrome which I believe is most likely causing his profound hypoglycemia. Patient is doing great, relatively asymptomatic, mental status is back to baseline. Labs today showed normal CBC. Hemoglobin is a bit low at 9.9. Electrolytes are improved, potassium is 5.5, bicarb is 21, BUN is 17 and creatinine is improving 1.39. Liver enzymes are abnormal with AST of 294 ALT of 223 and alkaline phosphatase of 161. I have no clear-cut idea as to the reason of his elevated liver enzymes. Blood cultures are negative so far. Urine culture is pending. Objective - Vital Signs Vital signs: Vital Signs Temp 98.3 F 11/25/20 12:00 Pulse 87 11/25/20 13:00 Resp 18 11/25/20 13:00 BP 159/96 11/25/20 13:00 Pulse Ox 95 11/25/20 13:00 Intake & Output 11/24/20 11/25/20 11/25/20 18:59 06:59 18:59 Intake Total 1525 1070 575 Output Total 1496 1325 854 Balance 29 -255 -279 Weight 70.6 kg Intake: IV 775 1070 350 Dextrose 10% in Water 500 775 245 0 ml In Empty Bag 1 bag @ 75 mls/hr IV .Q6H40M [facility] Rx#:[id number] Dextrose 5%-0.9% NaCl 1, 75 000 ml @ 150 mls/hr IV . Q6H40M [facility] Rx#:[id number] Sodium Chloride 0.9% 1, 825 225 000 ml @ 75 mls/hr IV . [id number] [facility] Rx#:[id number] Intake, IV Titration 750 225 Amount Dextrose 10% in Water 500 350 ml In Empty Bag 1 bag @ 75 mls/hr IV .Q6H40M [facility] Rx#:[id number] Dextrose 5%-0.9% NaCl 1, 225 000 ml @ 75 mls/hr IV . [id number] [facility] Rx#:[id number] Magnesium Sulfate-D5w Pmx 200 1 gm In Dextrose/Water 1 100ml.bag @ 100 mls/hr IVPB Q1H [facility] Rx#: [id number] Potassium Chloride 10 meq 200 In Water For Injection 1 100ml.bag @ 100 mls/hr IVPB Q1H [facility] Rx#: [id number] Output: Urine 1496 1325 854 Other: Voiding Method External Catheter External Catheter External Catheter - Exam General: Physical exam revealed 80-year-old white male, in no distress. HEENT: anicteric sclerae, moist conjunctiva, no lid-lag, PERRLA EOMI, dry mucous membranes. Cardiovascular: Normal S1 and S2, no S3 gallop, no murmur. Lungs: Medical chest expansion, clear throughout, no crackles or rhonchi or wheezes. Abdominal: Nontender no megaly no rebound no guarding. Skin: Warm, dry Extremities: Right lower extremity seems to be immobilized by orthopedic surgery. Psychiatric: Normal mood, affect and normal mental status examination. Neuro: Alert and oriented 3, no gross focal neurologic deficits. - Labs CBC & Chem 7: 11/25/20 03:46 11/25/20 03:46 Labs: Abnormal Lab Results - Last 24 Hours (Table) 11/24/20 11/24/20 11/24/20 Range/Units 14:17 17:34 18:18 RBC (4.30-5.90) m/uL Hgb (13.0-17.5) gm/dL Hct (39.0-53.0) % Sodium (137-145) mmol/L Potassium 5.8 H (3.5-5.1) mmol/L Carbon Dioxide (22-30) mmol/L Creatinine (0.66-1.25) mg/dL Glucose (74-99) mg/dL POC Glucose (mg/dL) 135 H (75-99) mg/dL C-Peptide 0.10 L (0.81-3.85) ng/mL AST (17-59) U/L ALT (4-49) U/L Alkaline Phosphatase (38-126) U/L Albumin (3.5-5.0) g/dL 11/24/20 11/24/20 11/24/20 Range/Units 20:58 21:55 22:47 RBC (4.30-5.90) m/uL Hgb (13.0-17.5) gm/dL Hct (39.0-53.0) % Sodium (137-145) mmol/L Potassium (3.5-5.1) mmol/L Carbon Dioxide (22-30) mmol/L Creatinine (0.66-1.25) mg/dL Glucose (74-99) mg/dL POC Glucose (mg/dL) 209 H 236 H 219 H (75-99) mg/dL C-Peptide (0.81-3.85) ng/mL AST (17-59) U/L ALT (4-49) U/L Alkaline Phosphatase (38-126) U/L Albumin (3.5-5.0) g/dL 11/24/20 11/25/20 11/25/20 Range/Units 23:51 00:58 02:04 RBC (4.30-5.90) m/uL Hgb (13.0-17.5) gm/dL Hct (39.0-53.0) % Sodium (137-145) mmol/L Potassium (3.5-5.1) mmol/L Carbon Dioxide (22-30) mmol/L Creatinine (0.66-1.25) mg/dL Glucose (74-99) mg/dL POC Glucose (mg/dL) 187 H 167 H 135 H (75-99) mg/dL C-Peptide (0.81-3.85) ng/mL AST (17-59) U/L ALT (4-49) U/L Alkaline Phosphatase (38-126) U/L Albumin (3.5-5.0) g/dL 11/25/20 11/25/20 11/25/20 Range/Units 03:46 03:46 03:48 RBC 3.07 L (4.30-5.90) m/uL Hgb 9.9 L (13.0-17.5) gm/dL Hct 29.2 L (39.0-53.0) % Sodium 133 L (137-145) mmol/L Potassium 5.5 H (3.5-5.1) mmol/L Carbon Dioxide 21 L (22-30) mmol/L Creatinine 1.39 H (0.66-1.25) mg/dL Glucose 125 H (74-99) mg/dL POC Glucose (mg/dL) 115 H (75-99) mg/dL C-Peptide (0.81-3.85) ng/mL AST 294 H (17-59) U/L ALT 223 H (4-49) U/L Alkaline Phosphatase 161 H (38-126) U/L Albumin 3.3 L (3.5-5.0) g/dL 11/25/20 11/25/20 Range/Units 08:13 13:09 RBC (4.30-5.90) m/uL Hgb (13.0-17.5) gm/dL Hct (39.0-53.0) % Sodium (137-145) mmol/L Potassium (3.5-5.1) mmol/L Carbon Dioxide (22-30) mmol/L Creatinine (0.66-1.25) mg/dL Glucose (74-99) mg/dL POC Glucose (mg/dL) 103 H 102 H (75-99) mg/dL C-Peptide (0.81-3.85) ng/mL AST (17-59) U/L ALT (4-49) U/L Alkaline Phosphatase (38-126) U/L Albumin (3.5-5.0) g/dL Microbiology - Last 24 Hours (Table) 11/24/20 08:21 Blood Culture - Preliminary Blood No Growth after 24 hours Assessment and Plan Assessment: Impression: Recurrent episodes of hypoglycemia, I believe mostly secondary to chronic diarrhea,/dumping syndrome, and possibly related to Sandostatin. Acute metabolic encephalopathy secondary to hypoglycemia. Mild hypercapnia due to hypoglycemia and metabolic encephalopathy, resolved. Acute kidney injury, most likely secondary to dehydration, improving with IV fluids. Continues to improve. Acute hyperkalemia secondary to acute metabolic acidosis, possible sepsis. Acute urinary tract infection is strongly suspected, cultures are pending. Acute trimalleolar ankle fracture secondary to fall/syncope. Syncope secondary to recurrent episodes of hypoglycemia. History of coronary artery disease. History of dyslipidemia. History of prostate and colon cancer. History of coronary artery disease and previous CABG. History of chronic GERD. Hyperkalemia secondary to renal failure and metabolic acidosis. Recommendation: Continue to monitor the patient in the ICU. For the next 24 hours. Cleared for surgery/repair trimalleolar fracture of ankle. Continue to monitor sugars every 3 hours. Continue hydration. Continue Empiric antibiotics for UTI and check urine cultures. Cultures are pending. C-peptide was ordered. GI consultation for his diarrhea and dumping syndrome. In the meantime patient was advised to eat small frequent meals to help prevent the problem with hypoglycemia. We'll continue to follow while in the ICU Time with Patient: Less than 30
[2020-11-25 15:13] LABS: Glucose,Whole Blood 94 mg/dL (75-99)
--- NOTE | 2020-11-25 15:15 | FL ---
EXAMINATION TYPE: FL guidance operating room DATE OF EXAM: 11/25/2020 FLUOROSCOPY Fluoroscopy time of 41 seconds was used during assessment of right ankle fracture. No image/s docume nt/s the procedure.
--- NOTE | 2020-11-25 15:43 | XR ---
EXAMINATION TYPE: XR ankle limited RT DATE OF EXAM: 11/25/2020 COMPARISON: NONE HISTORY: 80-year-old male internal fixation right ankle fracture FINDINGS: 7 intraoperative radiographs are submitted. Lateral plate and screw fixation of the patient's distal fibular fracture. Nondisplaced fracture of the posterior malleolus is also visualized. There seems to be a medial stress view without abnormal widening of the medial clear space. Total fluoroscopy time 41 seconds. IMPRESSION: Lateral and posterior malleolar ankle fractures. Intraoperative fluoroscopy as above.
[2020-11-25 15:49] LABS: Glucose,Whole Blood 90 mg/dL (75-99)
[2020-11-25] MEDS: LACTATED RINGERS 1,000 ML IV SCH (17:33)
[2020-11-25 18:20] LABS: Glucose,Whole Blood 115 mg/dL (75-99)
[2020-11-25] MEDS: HYDROcodone/APAP 5-325MG 1 EACH TAB PO PRN (18:56)
[2020-11-25] MEDS: HYDROmorphone 1 MG/ML 1 ML SYRINGE IVP PRN (20:14)
[2020-11-25] MEDS: ATORVASTATIN 10 MG TAB PO SCH (20:14)
[2020-11-25] MEDS: LORATADINE 10 MG TAB PO SCH (20:14)
[2020-11-25] MEDS: QUEtiapine 100 MG TAB PO SCH (20:15)
[2020-11-25 20:18] LABS: Glucose,Whole Blood 136 mg/dL (75-99)
[2020-11-26 00:25] LABS: Glucose,Whole Blood 123 mg/dL (75-99)
[2020-11-26] MEDS: DEXTROSE 5%-0.9% NACL 1,000 ML IV SCH (03:22)
[2020-11-26 04:37] LABS: Glucose,Whole Blood 106 mg/dL (75-99)
[2020-11-26 04:42] LABS: Basophils # (A) 0.1 k/uL (0-0.2); Basophils % (A) 1 %; Eosinophils # (A) 0.2 k/uL (0-0.7); Eosinophils % (A) 3 %; HCT 30.2 % (39.0-53.0); HGB 10.1 gm/dL (13.0-17.5); Lymphocytes # (A) 1.5 k/uL (1.0-4.8); Lymphocytes % (A) 21 %; MCH 31.6 pg (25.0-35.0); MCHC 33.5 g/dL (31.0-37.0); MCV 94.4 fL (80.0-100.0); Mean Platelet Volume 7.9; Monocytes # (A) 0.4 k/uL (0-1.0); Monocytes % (A) 5 %; Neutrophils # (A) 5.1 k/uL (1.3-7.7); Neutrophils % (A) 70 %; Platelet Count 187 k/uL (150-450); RBC 3.19 m/uL (4.30-5.90); RDW 12.6 % (11.5-15.5); WBC 7.4 k/uL (3.8-10.6)
[2020-11-26 04:48] LABS: Albumin 3.4 g/dL (3.5-5.0); Calcium 8.8 mg/dL (8.4-10.2); Potassium 5.1 mmol/L (3.5-5.1); Total Bilirubin 0.4 mg/dL (0.2-1.3); Total Protein 6.5 g/dL (6.3-8.2)
--- NOTE | 2020-11-26 05:47 | P.OP ---
Date of Procedure: 11/25/20 Preoperative Diagnosis: 1. RIGHT ankle bimalleolar fracture dislocation Lateral malleolus magy B, comminuted displaced closed Posterior malleolus ~ 17% Lateral dislocation upon injury Postoperative Diagnosis: 1. RIGHT ankle bimalleolar fracture dislocation Lateral malleolus magy B, comminuted displaced closed Posterior malleolus ~ 17% Lateral dislocation upon injury Procedure(s) Performed: 1. Open reduction and internal fixation of RIGHT ankle fracture 2. bivalved cast application Implants: Arthrex Anesthesia: spinal Surgeon: Brijesh tSanford Estimated Blood Loss (ml): 75 IV fluids (ml): 900 Urine output (ml): 0 Pathology: none sent Condition: stable Disposition: PACU Indications for Procedure: 80 yo male presented to [facility] ED c/o RIGHT ankle pain and deformity after a fall from standing off stairs at his trailer. He stated immediate pain and inability to ambulate. He was seen and the fracture was reduced in the ED and splinted. He was admitted for secondary reasons as well as possible placement, but due to the severity of the fracture displacement and tenuous skin medially due to tenting it was decided to operate this visit as he has multiple medical comorbidities and he will be able to get all of the clearance he needs here in the hospital and quicker. He was on board with this plan. During his pre op time he had some issues with potassium levels, glucose levels and other issues that landed him in ICU for closer monitoring. He was seen and examined here pre operatively. He understands the procedure and what it entails and is comfortable proceeding. All risks and benefits discussed again as outlined previously. He is willing to proceed. Site was marked. Abx given. Operative Findings: Displced, comminuted Lateral malleolus fracture with posterior malleolus fracture Description of Procedure: The patient was seen and examined in the preoperative area. All preoperative protocols were followed. Informed consent was obtained risks and benefits of the procedure were discussed at length. Risks including bleeding infection damage to the surrounding tissue and risk of reoperation were discussed with the patient. Risk of anesthesia up to and including was a discussed with the patient. These are outlined in the risk reviewed. They were willing to accept these risks and all of the risks of surgery. The patient was given a weight- based dose of antibiotics in the form of 2 g Ancef IVPB 1. The patient was seen and evaluated by the anesthesia team who deemed them fit for surgery. The site was marked, the patient was willing to proceed with the procedure. The patient was transferred to the operative suite by the Department of anesthesia. There were then drifted off to sleep by the department of anesthesia and spinal anesthesia with local sedation anesthesia was used. Once adequate anesthesia had been obtained the patient was carefully transferred to the operative bed. All bony prominences were padded accordingly. SCDs were placed on the nonoperative lower extremities. Arms were well padded. Right lower extremity was exposed. Tourniquet was placed on patient's right upper thigh and well-padded. An 15 was.Rightlegwasplacedinabonefoamrampatrighthipwas. Preoperative briefing was done with the operative team and everyone was ready for the procedure to start. The patients right leg was then prepped and draped in the normal sterile fashion. Timeout was then performed and all parties in agreement with the procedure to be performed. Esmarch was placed for exsanguination and tourniquet was inflated to 2 and 50 mmHg. Skin incision was made on the lateral side of the ankle over the fibula standard lateral approach to the lateral malleolus. Dissection was taken down to the periosteum. There is extensive stripping in this area secondary to the high energy of the fracture and the dislocation. The fracture was identified 2 clamps were placed on the proximal distal fragments to allow mobilization slotted for lavage of the fracture site with normal sterile saline as well as curetting the fracture site to remove any hematoma or interposed pieces. The fracture reduced very well and fairly easily. Clamps were placed on this. Interfrag screw was placed in the leg by technique from superior anterior to inferior posterior. This held the fracture well limp removed and a lateral plate was placed. Under fluoroscopic guidance the distal locking screws were then placed. Followed by the proximal screws. These were in good position on AP and lateral fluoroscopy and the fracture remained reduced on AP and lateral fluoroscopy. We then stressed the ankle with a cotton test and external rotation test under fluoroscopic guidance and this showed that the syndesmosis was stable. On lateral the posterior malleolus was a small piece it was reduced after the fibula was reduced and did not need to be addressed. The ankle joint remained stable through range of motion with no dislocation. Tourniquet was dropped at 38 minutes. The wound was then copiously irrigated with normal sterile saline wound was then closed with 0 Vicryl 2-0 Vicryl and 2-0 nylon s kin. It was cleaned and dressed sterilely with sterile Adaptic 4 x 4 ABDs and web roll. The patient was placed in a short-leg cast which was then bivalved to allow for swelling and overwrapped with an Al wrap. The patient was then transferred back to their hospital bed. There were awakened by department of anesthesia having tolerated the procedure very well with no complications. The patient was then transported to the postoperative care unit in stable condition.
[2020-11-26 06:12] LABS: Glucose,Whole Blood 112 mg/dL (75-99)
[2020-11-26] MEDS: PANTOPRAZOLE 40 MG TABLET PO SCH (06:17)
[2020-11-26] MEDS: HYDROcodone/APAP 5-325MG 1 EACH TAB PO PRN ×3 (07:13→21:12)
--- NOTE | 2020-11-26 07:45 | P.PN ---
Subjective Progress Note Date: 11/26/20 Principal diagnosis: Recurrent syncope This is a very pleasant 80-year-old gentleman who was admitted to the hospital with recurrent syncope. He is known to have coronary artery disease. The patient was seen this morning November [id number]. He is doing good clinically. He remains hemodynamics is stable. No arrhythmia was noted since he was admitted to the hospital. The echo showed normal left ventricular systolic function. From a cardiac vascular standpoint of view, if the patient remains a stable he possibly can be transferred out of the ICU in to a telemetry unit. Objective - Vital Signs Vital signs: Vital Signs Temp 97.1 F L 11/26/20 04:00 Pulse 105 H 11/26/20 07:00 Resp 14 11/26/20 07:00 BP 150/96 11/26/20 07:00 Pulse Ox 94 L 11/26/20 04:00 Intake & Output 11/25/20 11/26/20 11/26/20 18:59 06:59 18:59 Intake Total 1575 825 75 Output Total 1144 1145 200 Balance 431 -320 -125 Weight 70.2 kg Intake: IV 1000 825 75 Dextrose 10% in Water 500 0 ml In Empty Bag 1 bag @ 75 mls/hr IV .Q6H40M [facility] Rx#:[id number] Dextrose 5%-0.9% NaCl 1, 75 000 ml @ 150 mls/hr IV . Q6H40M [facility] Rx#:[id number] Dextrose 5%-0.9% NaCl 1, 825 75 000 ml @ 75 mls/hr IV . [id number] [facility] Rx#:[id number] Sodium Chloride 0.9% 1, 225 000 ml @ 75 mls/hr IV . [id number] [facility] Rx#:[id number] Intake, IV Titration 575 Amount Dextrose 5%-0.9% NaCl 1, 525 000 ml @ 75 mls/hr IV . [id number] [facility] Rx#:[id number] ceFAZolin 2 gm In Sodium 50 Chloride 0.9% 50 ml @ 100 mls/hr IVPB Q8H [facility] Rx#: [id number] Output: Urine 1094 1145 200 Estimated Blood Loss 50 Other: Voiding Method External Catheter External Catheter - Constitutional General appearance: Present: no acute distress - Respiratory Respiratory: bilateral: CTA - Cardiovascular Rhythm: regular Heart sounds: normal: S1, S2 - Labs CBC & Chem 7: 11/26/20 03:38 11/26/20 03:32 Labs: Abnormal Lab Results - Last 24 Hours (Table) 11/25/20 11/25/20 11/25/20 Range/Units 08:13 13:09 18:19 RBC (4.30-5.90) m/uL Hgb (13.0-17.5) gm/dL Hct (39.0-53.0) % Sodium (137-145) mmol/L Carbon Dioxide (22-30) mmol/L Creatinine (0.66-1.25) mg/dL Glucose (74-99) mg/dL POC Glucose (mg/dL) 103 H 102 H 115 H (75-99) mg/dL AST (17-59) U/L ALT (4-49) U/L Alkaline Phosphatase (38-126) U/L Albumin (3.5-5.0) g/dL 11/25/20 11/26/20 11/26/20 Range/Units 20:06 00:14 03:32 RBC (4.30-5.90) m/uL Hgb (13.0-17.5) gm/dL Hct (39.0-53.0) % Sodium 133 L (137-145) mmol/L Carbon Dioxide 21 L (22-30) mmol/L Creatinine 1.47 H (0.66-1.25) mg/dL Glucose 135 H (74-99) mg/dL POC Glucose (mg/dL) 136 H 123 H (75-99) mg/dL AST 96 H (17-59) U/L ALT 119 H (4-49) U/L Alkaline Phosphatase 154 H (38-126) U/L Albumin 3.4 L (3.5-5.0) g/dL 11/26/20 11/26/20 11/26/20 Range/Units 03:38 04:35 06:11 RBC 3.19 L (4.30-5.90) m/uL Hgb 10.1 L (13.0-17.5) gm/dL Hct 30.2 L (39.0-53.0) % Sodium (137-145) mmol/L Carbon Dioxide (22-30) mmol/L Creatinine (0.66-1.25) mg/dL Glucose (74-99) mg/dL POC Glucose (mg/dL) 106 H 112 H (75-99) mg/dL AST (17-59) U/L ALT (4-49) U/L Alkaline Phosphatase (38-126) U/L Albumin (3.5-5.0) g/dL Microbiology - Last 24 Hours (Table) 11/24/20 08:21 Blood Culture - Preliminary Blood No Growth after 24 hours Assessment and Plan Assessment: Assessment #1 recurrent syncope #2 coronary artery disease #3 hypoglycemia which has improved #4 hypertension #5 multiple comorbid conditions Plan #1 the echocardiogram was reviewed and revealed normal left ventricular systolic function #2 continue monitor the blood pressure and heart rate #3 continue monitor for arrhythmia #4 the patient can be transferred out of the ICU
[2020-11-26 07:51] LABS: Glucose,Whole Blood 108 mg/dL (75-99)
--- NOTE | 2020-11-26 08:07 | XR ---
EXAMINATION TYPE: XR chest 1V portable DATE OF EXAM: 11/26/2020 COMPARISON: 11/25/2020 INDICATION: Short of breath TECHNIQUE: Single frontal view of the chest is obtained. FINDINGS: The heart size is normal. The pulmonary vasculature is normal. Mild developing right lower lobe infiltrate may be present. Follow-up can be performed as clinically indicated. IMPRESSION: 1. Clinical consideration for developing right lower lobe infiltrate
[2020-11-26] MEDS ORDERED: DIPHENOX-ATROP 2.5-0.025 MG 1 EACH TAB PO PRN (08:26)
[2020-11-26] MEDS: ASPIRIN 81 MG PO SCH (08:55)
[2020-11-26] MEDS: DULoxetine HCL 60 MG CAPSULE.DR PO SCH ×2 (08:55→21:12)
[2020-11-26] MEDS: MULTIVITAMINS, THERA 1 EACH TAB PO SCH (08:56)
[2020-11-26] MEDS: FLUTICASONE 50MCG/SPRAY NASAL 16GM EA NOSTRIL SCH (08:56)
[2020-11-26] MEDS: GABAPENTIN 300 MG CAP PO SCH ×2 (08:56→21:12)
[2020-11-26] MEDS: FOLIC ACID 1 MG TAB PO SCH (08:56)
[2020-11-26] MEDS: MAGNESIUM OXIDE 400 MG TAB PO SCH (08:57)
--- NOTE | 2020-11-26 09:42 | P.PN ---
Subjective Progress Note Date: 11/26/20 Patient seen and examined this morning. He is doing fairly well. No issues overnight. Nursing at bedside. Patient is able to wiggle toes states no numbness or tingling states some pain in his leg. States that the cast feels somewhat tight. Denies fevers chills shortness of breath or chest pain at this time. Objective - Vital Signs Vital signs: Vital Signs Temp 98.0 F 11/26/20 08:00 Pulse 94 11/26/20 09:00 Resp 20 11/26/20 09:00 BP 164/93 11/26/20 09:00 Pulse Ox 99 11/26/20 08:00 Intake & Output 11/25/20 11/26/20 11/26/20 18:59 06:59 18:59 Intake Total 1575 825 225 Output Total 1144 1145 395 Balance 431 -320 -170 Weight 70.2 kg Intake: IV 1000 825 225 Dextrose 10% in Water 500 0 ml In Empty Bag 1 bag @ 75 mls/hr IV .Q6H40M [facility] Rx#:[id number] Dextrose 5%-0.9% NaCl 1, 75 000 ml @ 150 mls/hr IV . Q6H40M [facility] Rx#:[id number] Dextrose 5%-0.9% NaCl 1, 825 225 000 ml @ 75 mls/hr IV . [id number] [facility] Rx#:[id number] Sodium Chloride 0.9% 1, 225 000 ml @ 75 mls/hr IV . [id number] [facility] Rx#:[id number] Intake, IV Titration 575 Amount Dextrose 5%-0.9% NaCl 1, 525 000 ml @ 75 mls/hr IV . [id number] [facility] Rx#:[id number] ceFAZolin 2 gm In Sodium 50 Chloride 0.9% 50 ml @ 100 mls/hr IVPB Q8H [facility] Rx#: [id number] Output: Urine 1094 1145 395 Estimated Blood Loss 50 Other: Voiding Method External Catheter External Catheter - Exam Patient is alert and oriented 3 appears well-nourished well-hydrated is in no acute distress. They does not appear septic. On exam the patient has no tenderness to palpation of her thoracic or lumbar spine. There is no edema or ballottement sign. They have good strength in her lower extremities with 5 out of 5 dorsiflexion plantar flexion EHL and FHL bilaterally. Upper extremities show 5/5 strength in all major muscle groups. There is FROM that is painless of the b/l UE and LE in all major joints. They are intact to light touch sensation in L2 to S1 nerve distribution. Patient has palpable dorsalis pedis was posterior tibial pulses. Compartments are soft and compressible. Patient shows a negative Homans, Fermin's, negative Babinski's negative clonus bilaterally. negative straight leg raise bilaterally. No tensioning signs.Cranial nerves II through XII are grossly intact. Overall alignment is well-maintained in the sagittal coronal planes. Cast is clean dry and intact on the right lower extremity. Patient is able to wiggle all toes. He has good sensation in his toes. Capillary refill is brisk less than 2 seconds in all toes. Cast overwrap is undone to allow for more swelling. Limited Coban and placed loosely around the cast. - Labs CBC & Chem 7: 11/26/20 03:38 11/26/20 03:32 Labs: Abnormal Lab Results - Last 24 Hours (Table) 11/25/20 11/25/20 11/25/20 Range/Units 13:09 18:19 20:06 RBC (4.30-5.90) m/uL Hgb (13.0-17.5) gm/dL Hct (39.0-53.0) % Sodium (137-145) mmol/L Carbon Dioxide (22-30) mmol/L Creatinine (0.66-1.25) mg/dL Glucose (74-99) mg/dL POC Glucose (mg/dL) 102 H 115 H 136 H (75-99) mg/dL AST (17-59) U/L ALT (4-49) U/L Alkaline Phosphatase (38-126) U/L Albumin (3.5-5.0) g/dL 11/26/20 11/26/20 11/26/20 Range/Units 00:14 03:32 03:38 RBC 3.19 L (4.30-5.90) m/uL Hgb 10.1 L (13.0-17.5) gm/dL Hct 30.2 L (39.0-53.0) % Sodium 133 L (137-145) mmol/L Carbon Dioxide 21 L (22-30) mmol/L Creatinine 1.47 H (0.66-1.25) mg/dL Glucose 135 H (74-99) mg/dL POC Glucose (mg/dL) 123 H (75-99) mg/dL AST 96 H (17-59) U/L ALT 119 H (4-49) U/L Alkaline Phosphatase 154 H (38-126) U/L Albumin 3.4 L (3.5-5.0) g/dL 11/26/20 11/26/20 11/26/20 Range/Units 04:35 06:11 07:49 RBC (4.30-5.90) m/uL Hgb (13.0-17.5) gm/dL Hct (39.0-53.0) % Sodium (137-145) mmol/L Carbon Dioxide (22-30) mmol/L Creatinine (0.66-1.25) mg/dL Glucose (74-99) mg/dL POC Glucose (mg/dL) 106 H 112 H 108 H (75-99) mg/dL AST (17-59) U/L ALT (4-49) U/L Alkaline Phosphatase (38-126) U/L Albumin (3.5-5.0) g/dL Microbiology - Last 24 Hours (Table) 11/24/20 08:21 Blood Culture - Preliminary Blood No Growth after 24 hours Assessment and Plan Assessment: 80 yo male s/p ffs w/o BHT or LOC postop day 1 right ankle ORIF 1. R ankle trimalleolar fracture dislocation 2. Complex medical history 3. S/p FFS Plan: Pt was seen and examined in the ICU Continue medical management Pain control NWB RLE with assist PT OT Ice rest and elevation for pain and swelling control GI/DVT ppx Home meds as appropriate Patient may need to be placed in [facility]
[2020-11-26] MEDS ORDERED: ENOXAPARIN 30 MG/0.3 ML SYRINGE SQ SCH (09:45)
[2020-11-26 09:53] LABS: Glucose,Whole Blood 114 mg/dL (75-99)
--- NOTE | 2020-11-26 11:37 | P.CONS ---
History of Present Illness - Reason for Consult Consult date: 11/26/20 carcinoid Requesting physician: Teresa Espino - Chief Complaint syncopy and fall - History of Present Illness Mr. Bajwa is a very pleasant pt well known to our practice. 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 He was eventually seen By Dr. 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 Chromogranin level was over 850 post op, and remained elevated. December 2012 he was started on Sandostatin LAR 30mg IM monthly by Dr. Hebert. He was surgically explored again in January 2013, no malignancy found. Had negative baseline Octereotide scan, negative CT CAP in Oct 2013. He has chronic abd pain, fluctuating diarrhea and constipation. He cont on f/u, 12/23 octereotide scan was negative. He was worked up by mult specialists for abd pain. Had abdominal exploration by Dr. Uribe Jun 2016 for lysis of adhesions, no neoplastic process identified. 10/26 was admitted to [facility] with severe diarrhea, CT and colonoscopy revealed colitis. His chromogranin levels have fluctuated over the years. He has tolerated monthly sandostatin, dose was increased to 40mg IM monthly for persistent diarrhea. 06/29 was admitted to [facility] with SBO, resolved with supportive measures. Currently admitted with syncopy and fall. Abd pain is stable. No recent scans for carcinoid as pt has declined. He received parenteral iron 07/29. His last sandostatin was 10/28/20. 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 History of sigmoid diverticulosis, ileus, carcinoid syndrome History of Any Multi-Drug Resistant Organisms: None Reported Past Surgical History: Bowel Resection, Cholecystectomy, Coronary Bypass/CABG, Heart Catheterization, Hernia Repair, Prostate Surgery Additional Past Surgical History / Comment(s): X2 PENILE IMPLANT, RADIOACTIVE SEEDS FOR PROSTATE CANCER, FUNDOPLICATION & REVISION, EGD, LASIK EYE SURG, VASECTOMY. , STATES BILATERAL INGUINAL HERNIA REPAIR. bowel resect Past Anesthesia/Blood Transfusion Reactions: No Reported Reaction Past Psychological History: No Psychological Hx Reported Smoking Status: Never smoker Past Alcohol Use History: None Reported Past Drug Use History: None Reported - Past Family History Mother Family Medical History: No Reported History Medications and Allergies Home Medications Medication Instructions Recorded Confirmed Type Omeprazole [PriLOSEC] 40 mg PO DAILY 03/18/16 11/23/20 History Aspirin EC [Ecotrin Low Dose] 81 mg PO DAILY 07/29/16 11/23/20 History Folic Acid 1 mg PO DAILY 07/29/16 11/23/20 History Dicyclomine [Bentyl] 20 mg PO QID PRN 04/21/19 11/23/20 History Diphenox-Atrop 2.5-0.025 mg 2 tab PO QID PRN 04/21/19 11/23/20 History [Lomotil] Gabapentin [Neurontin] 600 mg PO BID 04/21/19 11/23/20 History Simvastatin [Zocor] 20 mg PO HS 04/21/19 11/23/20 History DULoxetine HCL [Cymbalta] 60 mg PO BID 04/04/20 11/23/20 History Fluticasone Nasal [place] [Flonase 2 spr EA NOSTRIL DAILY 04/04/20 11/23/20 History Nasal [place]win] Magnesium Oxide [C[place]qu[place]] 500 mg PO DAILY 04/04/20 11/23/20 History Octreotide Acetate,Mi-Spheres 30 mg IM Q30D 04/04/20 11/23/20 History [SandoSTATIN LAR Depot] Prevagen 1 tab PO DAILY 04/04/20 11/23/20 History QUEtiapine FUMARATE [QUEtiapine 200 mg PO HS 04/04/20 11/23/20 History FUMARATE ER] Mansoor-Forte 1mg 1 mg PO DAILY 04/04/20 11/23/20 History Loratadine [Claritin] 10 mg PO HS tab 06/03/20 11/23/20 Rx Multivitamins, Thera [Multivitamin 1 tab PO DAILY 10/30/20 11/23/20 History (formulary)] Octreotide Acetate,Mi-Spheres 10 mg IM Q30D 10/30/20 11/23/20 History [SandoSTATIN LAR Depot] polyethylene glycoL 3350 [Miralax] 17 gm PO DAILY PRN 11/23/20 11/23/20 History Allergies Allergy/AdvReac Type Severity Reaction Status Date / Time No Known Allergies Allergy Verified 10/30/20 18:55 Physical Exam Vitals: Vital Signs Temp Pulse Pulse Resp BP BP Pulse Ox 11/26/20 09:00 94 20 164/93 11/26/20 08:00 98.0 F 94 18 147/103 99 11/26/20 07:00 105 H 14 150/96 11/26/20 06:00 97 16 151/82 11/26/20 05:00 97 12 143/85 11/26/20 04:00 97.1 F L 101 H 14 135/75 94 L 11/26/20 03:00 98 16 136/81 11/26/20 02:00 97 18 125/77 11/26/20 01:00 94 16 122/76 11/26/20 00:00 98.1 F 97 16 115/71 95 11/25/20 23:00 101 H 16 103/67 11/25/20 22:00 110 H 16 141/79 11/25/20 21:00 105 H 16 11/25/20 20:00 97.6 F 100 13 181/105 96 11/25/20 19:00 94 17 153/87 93 L 11/25/20 18:00 85 12 172/94 95 11/25/20 17:00 85 16 158/97 20 L 11/25/20 16:00 97.7 F 76 16 158/103 94 L 11/25/20 15:35 78 16 151/76 100 11/25/20 15:20 78 16 147/73 98 11/25/20 15:05 97.8 F 78 12 143/70 100 11/25/20 13:00 87 18 159/96 95 11/25/20 12:00 98.3 F 87 16 167/104 95 11/25/20 11:00 88 13 170/89 95 Intake and Output 11/25/20 11/26/20 11/26/20 22:59 06:59 14:59 Intake Total 625 600 225 Output Total 610 775 395 Balance 15 -175 -170 Intake: IV 275 600 225 Dextrose 5%-0.9% NaCl 1, 225 600 225 000 ml @ 75 mls/hr IV . [id number] [facility] Rx#:[id number] Intake, IV Titration 350 Amount Dextrose 5%-0.9% NaCl 1, 300 000 ml @ 75 mls/hr IV . [id number] [facility] Rx#:[id number] ceFAZolin 2 gm In Sodium 50 Chloride 0.9% 50 ml @ 100 mls/hr IVPB Q8H [facility] Rx#: [id number] Output: Urine 610 775 395 Other: Voiding Method External Catheter External Catheter External Catheter Weight 70.2 kg - Constitutional General appearance: average body habitus, cooperative, no acute distress - EENT Eyes: anicteric sclerae, EOMI ENT: hard of hearing, normal oropharynx - Neck Neck: no lymphadenopathy - Respiratory Respiratory: bilateral: CTA - Cardiovascular Rhythm: regular Heart sounds: normal: S1, S2 Abnormal Heart Sounds: no systolic murmur, no diastolic murmur, no rub, no S3 Gallop, no S4 Gallop, no click, no other leg Peripheral Edema: bilateral: None - Gastrointestinal General gastrointestinal: no absent bowel sounds, no decreased bowel sounds, no distended, no hepatomegaly, no hyperactive bowel sounds, normal bowel sounds, no organomegaly, no rigid, no scaphoid, soft, no splenomegaly, tenderness, no umbilical hernia, no ventral hernia - Integumentary Integumentary: normal - Neurologic Neurologic: CNII-XII intact - Musculoskeletal Musculoskeletal: generalized weakness - Psychiatric Psychiatric: A&O x's 3, appropriate affect, intact judgment & insight Results CBC & Chem 7: 11/26/20 03:38 11/26/20 03:32 Labs: Abnormal Lab Results - Last 24 Hours (Table) 11/25/20 11/25/20 11/25/20 Range/Units 13:09 18:19 20:06 RBC (4.30-5.90) m/uL Hgb (13.0-17.5) gm/dL Hct (39.0-53.0) % Sodium (137-145) mmol/L Carbon Dioxide (22-30) mmol/L Creatinine (0.66-1.25) mg/dL Glucose (74-99) mg/dL POC Glucose (mg/dL) 102 H 115 H 136 H (75-99) mg/dL AST (17-59) U/L ALT (4-49) U/L Alkaline Phosphatase (38-126) U/L Albumin (3.5-5.0) g/dL 11/26/20 11/26/20 11/26/20 Range/Units 00:14 03:32 03:38 RBC 3.19 L (4.30-5.90) m/uL Hgb 10.1 L (13.0-17.5) gm/dL Hct 30.2 L (39.0-53.0) % Sodium 133 L (137-145) mmol/L Carbon Dioxide 21 L (22-30) mmol/L Creatinine 1.47 H (0.66-1.25) mg/dL Glucose 135 H (74-99) mg/dL POC Glucose (mg/dL) 123 H (75-99) mg/dL AST 96 H (17-59) U/L ALT 119 H (4-49) U/L Alkaline Phosphatase 154 H (38-126) U/L Albumin 3.4 L (3.5-5.0) g/dL 11/26/20 11/26/20 11/26/20 Range/Units 04:35 06:11 07:49 RBC (4.30-5.90) m/uL Hgb (13.0-17.5) gm/dL Hct (39.0-53.0) % Sodium (137-145) mmol/L Carbon Dioxide (22-30) mmol/L Creatinine (0.66-1.25) mg/dL Glucose (74-99) mg/dL POC Glucose (mg/dL) 106 H 112 H 108 H (75-99) mg/dL AST (17-59) U/L ALT (4-49) U/L Alkaline Phosphatase (38-126) U/L Albumin (3.5-5.0) g/dL 11/26/20 Range/Units 09:51 RBC (4.30-5.90) m/uL Hgb (13.0-17.5) gm/dL Hct (39.0-53.0) % Sodium (137-145) mmol/L Carbon Dioxide (22-30) mmol/L Creatinine (0.66-1.25) mg/dL Glucose (74-99) mg/dL POC Glucose (mg/dL) 114 H (75-99) mg/dL AST (17-59) U/L ALT (4-49) U/L Alkaline Phosphatase (38-126) U/L Albumin (3.5-5.0) g/dL Microbiology - Last 24 Hours (Table) 11/24/20 08:21 Blood Culture - Preliminary Blood No Growth after 24 hours Assessment and Plan (1) Carcinoid tumor of gastrointestinal tract Narrative/Plan: Pt is on monthly sandostatin injections for years. He more recently has refused scans but, no objective or subjective findings to suggest recurrence of this disease. It is ok to delay administration of sandostatin-he is due today. It can be rescheduled and given after discharge. Will draw chromogranin Current Visit: No Status: Chronic Priority: Low Code(s): D3A.098 - BENIGN CARCINOID TUMORS OF OTHER SITES SNOMED Code(s): 156396718 (2) Iron deficiency anemia Narrative/Plan: Most likely r/t diet and malabsorption. Last received parenteral iron in Jul. He was due for labs and f/u this week in ofc. Will check iron levels. Current Visit: Yes Status: Chronic Priority: Medium Code(s): D50.9 - IRON DEFICIENCY ANEMIA, UNSPECIFIED SNOMED Code(s): 40440111 Plan: Doctor attests: I performed a history and physical examination of this patient, developed impression and plan of care, discussed with dictator. I agree with dictators note, documented as a scribe.
[2020-11-26 12:09] LABS: Glucose,Whole Blood 102 mg/dL (75-99)
[2020-11-26] MEDS: LACTATED RINGERS 1,000 ML IV SCH (13:00)
--- NOTE | 2020-11-26 13:54 | P.PN ---
Subjective Progress Note Date: 11/26/20 Principal diagnosis: Acute metabolic encephalopathy secondary to hypoglycemia, likely secondary to dumping syndrome. his is an 80-year-old white male with history of multiple medical problems including coronary artery disease, hypertension, dyslipidemia, patient fell at home, apparently was a witnessed episode of unresponsiveness, patient fell to the ground, and he was out for several seconds. Apparently the patient had a similar episode in the past, and his last episode was a month ago. However at the time did not seek any medical attention. Upon waking up, patient was complaining of right ankle pain, and thoracic back pain. Patient was seen in the ER, and he was admitted to the cardiac floor. However around 3:20 AM, the rapid response team responded to this patient with altered mental status, and he became up done didn't and unresponsive. Apparently the patient had hyperkalemia on admission, and he was given insulin as well as 1 amp of D50. Patient suddenl y became unresponsive and his blood sugar was noted to be 28. Patient was given multiple amps of D50, transferred to the ICU, and he was also noted to be relatively hypotensive with a blood pressure of 82/47. O2 saturation was 95% on room air. Patient had to be placed on D10 W at the rate of 100 mL per hour, because he kept having low blood sugars in the first few hours after transfer to the ICU. Presently the patient is on D10W, running at 100 mL per hour, and we are monitoring his blood sugars on a hourly basis. Patient was seen by many consultants including cardiology, orthopedics, and he was also seen by internal medicine labs on admission showed relatively normal CBC. ABG showed a pO2 of 91 pCO2 of 43 pH of 7.22, urinalysis is suspicious for UTI patient has obviously pyuria and bacteriuria. Lactic acid on admission was 1.7. Renal functioning showed evidence of acute kidney injury with creatinine of 1.7 on admission follow-up creatinine is 1.5 to this morning. Right ankle CT showed trimalleolar fracture, status post reduction chest x-ray showed no acute cardiopulmonary p rocess. Patient was reevaluated today on 11/25/2020, patient remains in the ICU, he is completely off D10 W, blood sugar is maintained in the 90s. Patient is on regular diet, I recommended switching the patient to D5.9 normal saline, and I have recommended GI consultation regarding his chronic diarrhea and dumping syndrome which I believe is most likely causing his profound hypoglycemia. Patient is doing great, relatively asymptomatic, mental status is back to baseline. Labs today showed normal CBC. Hemoglobin is a bit low at 9.9. Electrolytes are improved, potassium is 5.5, bicarb is 21, BUN is 17 and creatinine is improving 1.39. Liver enzymes are abnormal with AST of 294 ALT of 223 and alkaline phosphatase of 161. I have no clear-cut idea as to the reason of his elevated liver enzymes. Blood cultures are negative so far. Urine culture is pending. Reevaluated today on 11/26/2020, patient remains in the ICU, doing great, underwent surgery on his right lower extremity/ORIF of right ankle done on 11/25/2020. Patient had a relatively uneventful postoperative course, patient ralph d no further drops in his blood sugar, it is maintained in the normal range, not requiring any more dextrose. He is however on D5, 0.9 normal saline at 75 mL per hour. Patient is hemodynamically stable, no further episodes of syncope or hypoglycemia. Sandostatin remains on hold, and today I found out that the patient had history of carcinoid of the GI tract, and his chromogranin level was elevated post surgery and complete resection. Hence he was placed on Sandostatin since 2012. Will likely be restarted on outpatient basis, in the meantime we'll continue to hold Sandostatin. Today I recommended dressing the patient out of the ICU to a regular medical floor. Objective - Vital Signs Vital signs: Vital Signs Temp 98.0 F 11/26/20 08:00 Pulse 94 11/26/20 09:00 Resp 20 11/26/20 09:00 BP 164/93 11/26/20 09:00 Pulse Ox 99 11/26/20 08:00 Intake & Output 11/25/20 11/26/20 11/26/20 18:59 06:59 18:59 Intake Total 1575 825 225 Output Total 1144 1145 395 Balance 431 -320 -170 Weight 70.2 kg Intake: IV 1000 825 225 Dextrose 10% in Water 500 0 ml In Empty Bag 1 bag @ 75 mls/hr IV .Q6H40M [facility] Rx#:[id number] Dextrose 5%-0.9% NaCl 1, 75 000 ml @ 150 mls/hr IV . Q6H40M [facility] Rx#:[id number] Dextrose 5%-0.9% NaCl 1, 825 225 000 ml @ 75 mls/hr IV . [id number] [facility] Rx#:[id number] Sodium Chloride 0.9% 1, 225 000 ml @ 75 mls/hr IV . [id number] [facility] Rx#:[id number] Intake, IV Titration 575 Amount Dextrose 5%-0.9% NaCl 1, 525 000 ml @ 75 mls/hr IV . [id number] [facility] Rx#:[id number] ceFAZolin 2 gm In Sodium 50 Chloride 0.9% 50 ml @ 100 mls/hr IVPB Q8H [facility] Rx#: [id number] Output: Urine 1094 1145 395 Estimated Blood Loss 50 Other: Voiding Method External Catheter External Catheter External Catheter - Exam General: Physical exam revealed 80-year-old white male, in no distress. HEENT: anicteric sclerae, moist conjunctiva, no lid-lag, PERRLA EOMI, dry mucous membranes. Cardiovascular: Normal S1 and S2, no S3 gallop, no murmur. Lungs: Medical chest expansion, clear throughout, no crackles or rhonchi or wheezes. Abdominal: Nontender no megaly no rebound no guarding. Skin: Warm, dry Extremities: Right lower extremity seems to be immobilized by orthopedic surgery. Psychiatric: Normal mood, affect and normal mental status examination. Neuro: Alert and oriented 3, no gross focal neurologic deficits. - Labs CBC & Chem 7: 11/26/20 03:38 11/26/20 03:32 Labs: Abnormal Lab Results - Last 24 Hours (Table) 11/25/20 11/25/20 11/26/20 Range/Units 18:19 20:06 00:14 RBC (4.30-5.90) m/uL Hgb (13.0-17.5) gm/dL Hct (39.0-53.0) % Sodium (137-145) mmol/L Carbon Dioxide (22-30) mmol/L Creatinine (0.66-1.25) mg/dL Glucose (74-99) mg/dL POC Glucose (mg/dL) 115 H 136 H 123 H (75-99) mg/dL AST (17-59) U/L ALT (4-49) U/L Alkaline Phosphatase (38-126) U/L Albumin (3.5-5.0) g/dL 11/26/20 11/26/20 11/26/20 Range/Units 03:32 03:38 04:35 RBC 3.19 L (4.30-5.90) m/uL Hgb 10.1 L (13.0-17.5) gm/dL Hct 30.2 L (39.0-53.0) % Sodium 133 L (137-145) mmol/L Carbon Dioxide 21 L (22-30) mmol/L Creatinine 1.47 H (0.66-1.25) mg/dL Glucose 135 H (74-99) mg/dL POC Glucose (mg/dL) 106 H (75-99) mg/dL AST 96 H (17-59) U/L ALT 119 H (4-49) U/L Alkaline Phosphatase 154 H (38-126) U/L Albumin 3.4 L (3.5-5.0) g/dL 11/26/20 11/26/20 11/26/20 Range/Units 06:11 07:49 09:51 RBC (4.30-5.90) m/uL Hgb (13.0-17.5) gm/dL Hct (39.0-53.0) % Sodium (137-145) mmol/L Carbon Dioxide (22-30) mmol/L Creatinine (0.66-1.25) mg/dL Glucose (74-99) mg/dL POC Glucose (mg/dL) 112 H 108 H 114 H (75-99) mg/dL AST (17-59) U/L ALT (4-49) U/L Alkaline Phosphatase (38-126) U/L Albumin (3.5-5.0) g/dL 11/26/20 Range/Units 12:06 RBC (4.30-5.90) m/uL Hgb (13.0-17.5) gm/dL Hct (39.0-53.0) % Sodium (137-145) mmol/L Carbon Dioxide (22-30) mmol/L Creatinine (0.66-1.25) mg/dL Glucose (74-99) mg/dL POC Glucose (mg/dL) 102 H (75-99) mg/dL AST (17-59) U/L ALT (4-49) U/L Alkaline Phosphatase (38-126) U/L Albumin (3.5-5.0) g/dL Microbiology - Last 24 Hours (Table) 11/24/20 08:21 Blood Culture - Preliminary Blood No Growth after 48 hours Assessment and Plan Assessment: Impression: Recurrent episodes of hypoglycemia, I believe mostly secondary to chronic diarrhea,/dumping syndrome Acute metabolic encephalopathy secondary to hypoglycemia. Resolved. Mild hypercapnia due to hypoglycemia and metabolic encephalopathy, resolved. Acute kidney injury, most likely secondary to dehydration, improving with IV fluids. Continues to improve. Acute hyperkalemia secondary to acute metabolic acidosis, possible sepsis. Acute urinary tract infection is strongly suspected, cultures are pending. Acute trimalleolar ankle fracture secondary to fall/syncope. Syncope secondary to recurrent episodes of hypoglycemia. History of coronary artery disease. History of dyslipidemia. History of prostate and colon cancer. History of coronary artery disease and previous CABG. History of chronic GERD. Hyperkalemia secondary to renal failure and metabolic acidosis. Recommendation: Transfer patient out of the ICU to a regular medical floor. Continue to monitor sugars every before meals and daily at bedtime. Continue hydration. Continue empiric antibiotics for UTI. C-peptide was noted to be low. Continue frequent small meals. Time with Patient: Less than 30
--- NOTE | 2020-11-26 16:56 | P.PN ---
Subjective Progress Note Date: 11/26/20 This is an 80-year-old gentleman status post syncope with fall sustaining right ankle fracture, acute renal failure, hyperkalemia and multiple other medical issues, [facility], became unresponsive with hypoglycemia, calm, hypotensive with systolic blood pressures in the low 80s, ma intaining O2 sats in the 90s on room air and transferred to the ICU. Received IV fluid bolus/IV fluid hydration. Weaned off of Levophed since 299. Currently receiving dextrose 10% with blood sugars ranging from 59 to high 90s. Evaluated by orthopedic surgery and is scheduled for surgery tomorrow. Echo completed, results pending. Telemetry sinus rhythm. Denies chest pain, palpitations or shortness of breath. Afebrile, normal WBC. 11/25/20 blood sugars controlled, maintenance IV changed to D5.9. Creatinine improving, 1.39. Reports right ankle pain .Scheduled for right ankle open reduct ion and internal fixation today. Telemetry sinus rhythm. LFTs increased, T bili within normal limits. Afebrile, normal WBC. Echo reporting normal LV function , EF 60-65% , mild tricuspid regurgitation .Denies chest pain, palpitations or shortness of breath. Maintaining O2 sats in the high 90s on room air. Sitter at bedside, staff reports patient is impulsive at times; apparently last night patient became more confused, agitated and received one time dose of Seroquel. This morning pleasant, cooperative with significant clinical improvement, A & O3. 11/26/2020 status post right ankle open reduction and internal fixation, postop day #1, tolerated procedure well. Complained of proximal cast tightness, cast overwrap undone as per orthopedic surgery. Blood sugars have remained stable. Sandostatin remains on hold. Sitter remains at bedside, staff reports patient develops sundowners in the evenings. Patient reports not sleeping well, positive pain, currently on Seroquel every at bedtime. Objective - Vital Signs Vital signs: Vital Signs Temp 98.2 F 11/26/20 14:00 Pulse 104 H 11/26/20 14:00 Resp 18 11/26/20 14:00 BP 154/90 11/26/20 14:00 Pulse Ox 100 11/26/20 14:00 Intake & Output 11/25/20 11/26/20 11/26/20 18:59 06:59 18:59 Intake Total 1575 825 225 Output Total 1144 1145 1295 Balance 431 -320 -1070 Weight 70.2 kg Intake: IV 1000 825 225 Dextrose 10% in Water 500 0 ml In Empty Bag 1 bag @ 75 mls/hr IV .Q6H40M [facility] Rx#:[id number] Dextrose 5%-0.9% NaCl 1, 75 000 ml @ 150 mls/hr IV . Q6H40M [facility] Rx#:[id number] Dextrose 5%-0.9% NaCl 1, 825 225 000 ml @ 75 mls/hr IV . [id number] [facility] Rx#:[id number] Sodium Chloride 0.9% 1, 225 000 ml @ 75 mls/hr IV . [id number] [facility] Rx#:[id number] Intake, IV Titration 575 Amount Dextrose 5%-0.9% NaCl 1, 525 000 ml @ 75 mls/hr IV . [id number] [facility] Rx#:[id number] ceFAZolin 2 gm In Sodium 50 Chloride 0.9% 50 ml @ 100 mls/hr IVPB Q8H [facility] Rx#: [id number] Output: Urine 1094 1145 1295 Estimated Blood Loss 50 Other: Voiding Method External Catheter External Catheter External Catheter - Exam PHYSICAL EXAM: VITAL SIGNS: As above GENERAL: Sitting up in bed, alert and oriented 3, no acute distress HEENT: Conjunctivae normal. eyes normal. Oral mucosa moist NECK: No JVD. No thyroid enlargement. CARDIOVASCULAR: S1, S2 regular. Systolic murmur. RESPIRATION: Breath sounds diminished in the bases. No rhonchi or crackles. ABDOMEN: Soft, nontender . No guarding. no masses palpable.Bowel sounds heard. LEGS: Right lower extremity cast, toes warm, pink, toes wiggle freely NERVOUS SYSTEM: Cranial N 2-12 grossly normal. Moves all 4 limbs. No focal deficits. Skin: Warm and dry, no rash - Labs CBC & Chem 7: 11/26/20 03:38 11/26/20 03:32 Labs: Abnormal Lab Results - Last 24 Hours (Table) 11/25/20 11/25/20 11/26/20 Range/Units 18:19 20:06 00:14 RBC (4.30-5.90) m/uL Hgb (13.0-17.5) gm/dL Hct (39.0-53.0) % Sodium (137-145) mmol/L Carbon Dioxide (22-30) mmol/L Creatinine (0.66-1.25) mg/dL Glucose (74-99) mg/dL POC Glucose (mg/dL) 115 H 136 H 123 H (75-99) mg/dL AST (17-59) U/L ALT (4-49) U/L Alkaline Phosphatase (38-126) U/L Albumin (3.5-5.0) g/dL 11/26/20 11/26/20 11/26/20 Range/Units 03:32 03:38 04:35 RBC 3.19 L (4.30-5.90) m/uL Hgb 10.1 L (13.0-17.5) gm/dL Hct 30.2 L (39.0-53.0) % Sodium 133 L (137-145) mmol/L Carbon Dioxide 21 L (22-30) mmol/L Creatinine 1.47 H (0.66-1.25) mg/dL Glucose 135 H (74-99) mg/dL POC Glucose (mg/dL) 106 H (75-99) mg/dL AST 96 H (17-59) U/L ALT 119 H (4-49) U/L Alkaline Phosphatase 154 H (38-126) U/L Albumin 3.4 L (3.5-5.0) g/dL 11/26/20 11/26/20 11/26/20 Range/Units 06:11 07:49 09:51 RBC (4.30-5.90) m/uL Hgb (13.0-17.5) gm/dL Hct (39.0-53.0) % Sodium (137-145) mmol/L Carbon Dioxide (22-30) mmol/L Creatinine (0.66-1.25) mg/dL Glucose (74-99) mg/dL POC Glucose (mg/dL) 112 H 108 H 114 H (75-99) mg/dL AST (17-59) U/L ALT (4-49) U/L Alkaline Phosphatase (38-126) U/L Albumin (3.5-5.0) g/dL 02/17/21 Range/Units 12:06 RBC (4.30-5.90) m/uL Hgb (13.0-17.5) gm/dL Hct (39.0-53.0) % Sodium (137-145) mmol/L Carbon Dioxide (22-30) mmol/L Creatinine (0.66-1.25) mg/dL Glucose (74-99) mg/dL POC Glucose (mg/dL) 102 H (75-99) mg/dL AST (17-59) U/L ALT (4-49) U/L Alkaline Phosphatase (38-126) U/L Albumin (3.5-5.0) g/dL Microbiology - Last 24 Hours (Table) 11/24/20 08:21 Blood Culture - Preliminary Blood No Growth after 48 hours Assessment and Plan Assessment: Hypoglycemia, possibly secondary to chronic diarrhea, status post D10 IV fluid resuscitation, PSA ordered Syncope, suspect related to the above Status post fall with right ankle trimalleolar fracture status post reduction, status post Open reduction and internal fixation of RIGHT ankle fracture Hypotension, pressor's weaned off Acute metabolic encephalopathy secondary to hypoglycemia, pain Acute renal failure secondary to dehydration, improving with IV fluids Possible acute UTI CAD Hypertension, history of Hypomagnesemia History of prostate and colon cancer. PSA level pending. History of carcinoid tumor of GI tract, on monthly Sandostatin injections times years, currently on hold, reinitiate outpatient. Iron deficient anemia Plan: Continue on current medication regime ,monitoring and symptomatic treatment. Cleared by eligibility services representative for transfer out of ICU to general medical floor. Maintain Close monitoring of Accu-Cheks. Empiric Rocephin for possible acute UTI. Pain management/anticoagulation as per orthopedic surgery.NWB RLE- social work consulted for subacute rehab at discharge. The impression and plan of care has been dictated as directed. : I performed a history and examination of this patient, discussed the same with the dictator. I agree with the dictator's note ,documented as a scribe. Any additional findings or plans will be noted.
[2020-11-26 17:43] LABS: Glucose,Whole Blood 96 mg/dL (75-99)
--- NOTE | 2020-11-26 19:48 | CONS ---
CONSULTATION DATE OF DICTATION: 11/26/2020 REASON FOR CONSULTATION: History of carcinoid tumor diagnosed in 2012, on Sandostatin Depot shot and to evaluate for the need for Sandostatin. HISTORY OF PRESENT ILLNESS: The patient is an 80-year-old white male admitted to the hospital with frequent falls and hypoglycemia on and off for the last few weeks' duration. The patient apparently had a fall and had a fracture of the right ankle, for which he underwent surgery yesterday. At the time of admission to the hospital, in the ER he was noted to have a blood sugar level of 28 and was given IV dextrose. The patient was diagnosed with a carcinoid tumor involving the small bowel, for which he underwent resection in December of 2012, and he was having severe diarrhea and hence was started on Sandostatin LAR 30 mg IM every month and follows with Dr. Bush on a regular basis. GI was asked to evaluate for the need of Sandostatin at this time, especially in view of hypoglycemia that the patient presented with to the hospital, which is thought to be the reason for frequent falls. On further questioning, the patient states that he has diarrhea almost on a regular basis. He usually has 3-4 bowel movements daily. He has been taking Lomotil 2 tablets twice daily, despite which he continues to have diarrhea. He has been on Sandostatin LAR 30 mg on a monthly basis for several years, and he is not sure whether the medication is working or not. He complains of chronic lower abdominal pain. He was extensively worked up for lower abdominal pain and had multiple scans which did not show any evidence of recurrence since his surgical resection in 2012. He follows with Dr. Bush on a regular basis. PAST MEDICAL HISTORY: Significant for coronary artery disease, hypertension, hyperlipidemia, degenerative joint disease, history of prostate cancer. PAST SURGICAL HISTORY: Small bowel resection for small-bowel carcinoid in 2012, cholecystectomy, coronary artery bypass surgery, prostate surgery, hernia repair, cardiac catheterization, penile implant, fundoplication with revision, multiple EGDs, vasectomy. MEDICATIONS: Medications at home include Prilosec, Ecotrin, Bentyl, Lomotil, Neurontin, Zocor, Cymbalta, Flonase, magnesium oxide, Sandostatin LAR Depot, Prevagen, quetiapine, Claritin, multivitamins and MiraLAX. ALLERGIES: NONE. SOCIAL HISTORY: History of smoking. No alcohol use. FAMILY HISTORY: Unremarkable. REVIEW OF SYSTEMS: CARDIOPULMONARY: No chest pain or shortness of breath. GENITOURINARY: No dysuria or hematuria. MUSCULOSKELETAL: Complaints of chronic back pain. NEUROLOGY: Unremarkable. PSYCHIATRY: Unremarkable. ENT/VISION: Unremarkable. CONSTITUTIONAL: He says that he lost about 10 pounds in the last 6 months. No fever, chills, night sweats. ONCOLOGY: As mentioned above with carcinoid of the small bowel diagnosed in 2013 with possible syndrome with possible carcinoid syndrome. PHYSICAL EXAMINATION: He appears comfortable. No apparent distress. Vital signs are stable. Blood pressure 130/86, pulse rate 94, temperature 98. HEENT examination unremarkable. Conjunctivae pink. Sclerae anicteric. Oral cavity no lesions. NECK: No JVD or lymph node enlargement. CHEST: Clear to auscultation. HEART: Regular rate and rhythm. ABDOMEN: Soft. It was non-tender, non-distended. Bowel sounds are positive. No organomegaly. EXTREMITIES: Cast on the right leg. No pedal edema. NEUROLOGIC: Alert and oriented x3. No focal deficits. LABS: Labs done at the time of admission to the hospital: WBC 6.5, hemoglobin 11.5, platelets 147. Blood sugar was 28, BUN 19, creatinine 1.7. AST and ALT are 96 and 119, respectively. T-bilirubin and alkaline phosphatase are within normal limits. IMPRESSION: 1. Frequent falls, possibly related to hypoglycemia. The patient's blood sugar at the time of admission to the hospital was 25. Since being in the hospital, blood sugars have been within the normal range. Questionably related to Sandostatin LAR Depot that patient has been on for the last 5 years' duration. 2. Carcinoid tumor of the small bowel diagnosed in 2013, status post surgical resection. The patient had symptoms with flushing and diarrhea for the last several years and has been maintained on Sandostatin LAR Depot 30 mg on a monthly basis. The last dose was about a month ago. 3. History of hypertension, hyperlipidemia. 4. Right right ankle fracture, for which he underwent surgery yesterday. 5. Acute kidney injury, which is gradually improving with IV hydration. RECOMMENDATIONS: 1. Continue with Lomotil 2 tablets 4 times daily. 2. At this time we will get an opinion from Oncology regarding the need for Sandostatin LAR Dep[place], as it is unclear whether the patient has carcinoid syndrome or not. As per the workup last year, he did not have any evidence of recurrent carcinoid on imaging studies. 3. Continue with Bentyl 10 mg 4 times daily. 4. Continue with symptomatic and supportive care. Will follow with you closely. Thank you for this consultation. MONICA / THIAGO: [id number] /
[2020-11-26] MEDS: QUEtiapine 100 MG TAB PO SCH (21:12)
[2020-11-26] MEDS: ATORVASTATIN 10 MG TAB PO SCH (21:12)
[2020-11-26] MEDS: LORATADINE 10 MG TAB PO SCH (21:12)
[2020-11-27 00:32] LABS: Glucose,Whole Blood 131 mg/dL (75-99)
[2020-11-27] MEDS: DEXTROSE 5%-0.9% NACL 1,000 ML IV SCH ×3 (00:55→15:50)
[2020-11-27 05:32] VITALS: RESP 16
[2020-11-27 05:49] LABS: Basophils % (A) 1 %; Eosinophils # (A) 0.2 k/uL (0-0.7); Eosinophils % (A) 4 %; HCT 29.2 % (39.0-53.0); HGB 9.3 gm/dL (13.0-17.5); Lymphocytes # (A) 1.6 k/uL (1.0-4.8); Lymphocytes % (A) 29 %; MCH 30.2 pg (25.0-35.0); MCHC 31.9 g/dL (31.0-37.0); MCV 94.8 fL (80.0-100.0); Monocytes # (A) 0.3 k/uL (0-1.0); Monocytes % (A) 6 %; Neutrophils # (A) 3.3 k/uL (1.3-7.7); Neutrophils % (A) 60 %; Platelet Count 177 k/uL (150-450); RBC 3.07 m/uL (4.30-5.90); WBC 5.5 k/uL (3.8-10.6)
[2020-11-27 05:57] LABS: Calcium 8.5 mg/dL (8.4-10.2); Potassium 4.7 mmol/L (3.5-5.1)
[2020-11-27 06:21] LABS: Glucose,Whole Blood 120 mg/dL (75-99)
--- NOTE | 2020-11-27 08:51 | P.PN ---
Subjective Progress Note Date: 11/27/20 Principal diagnosis: RIGHT ankle fracture dislocation Patient seen and examined. He is doing well this morning. States that he has no pain in his right ankle currently. States he feels better once we released the Al wrap around his cast. He currently has cold band on his cast which is loosely fitting but holding cast together. Denies fevers chills shortness of breath or chest pain. Denies any numbness or tingling. Objective - Vital Signs Vital signs: Vital Signs Temp 98 F 11/27/20 05:30 Pulse 87 11/27/20 05:30 Resp 16 11/27/20 05:30 BP 109/70 11/27/20 05:30 Pulse Ox 94 L 11/27/20 05:30 Intake & Output 11/26/20 11/27/20 11/27/20 18:59 06:59 18:59 Intake Total 225 590 Output Total 1295 900 Balance -1070 -310 Intake: IV 225 Dextrose 5%-0.9% NaCl 1, 225 000 ml @ 75 mls/hr IV . [id number] [facility] Rx#:[id number] Oral 590 Output: Urine 1295 900 Other: Voiding Method External Catheter External Catheter - Exam Patient is alert and oriented 3 appears well-nourished well-hydrated is in no acute distress. They does not appear septic. On exam the patient has no tenderness to palpation of her thoracic or lumbar spine. There is no edema or ballottement sign. They have good strength in her lower extremities with 5 out of 5 dorsiflexion plantar flexion EHL and FHL bilaterally. Upper extremities show 5/5 strength in all major muscle groups. There is FROM that is painless of the b/l UE and LE in all major joints. They are intact to light touch sensation in L2 to S1 nerve distribution. Patient has palpable dorsalis pedis was posterior tibial pulses. Compartments are soft and compressible. Patient shows a negative Homans, Fermin's, negative Babinski's negative clonus bilaterally. negative straight leg raise bilaterally. No tensioning signs.Cranial nerves II through XII are grossly intact. Overall alignment is well-maintained in the sagittal coronal planes. Cast is clean dry and intact on the right lower extremity. Patient is able to wiggle all toes. He has good sensation in his toes. Capillary refill is brisk less than 2 seconds in all toes. Cast overwrap is undone to allow for more swelling. Limited Coban and placed l oosely around the cast. - Labs CBC & Chem 7: 11/27/20 05:14 11/27/20 05:14 Labs: Abnormal Lab Results - Last 24 Hours (Table) 11/26/20 11/26/20 11/27/20 Range/Units 09:51 12:06 00:20 RBC (4.30-5.90) m/uL Hgb (13.0-17.5) gm/dL Hct (39.0-53.0) % Sodium (137-145) mmol/L Carbon Dioxide (22-30) mmol/L Creatinine (0.66-1.25) mg/dL Glucose (74-99) mg/dL POC Glucose (mg/dL) 114 H 102 H 131 H (75-99) mg/dL 11/27/20 11/27/20 11/27/20 Range/Units 05:14 05:14 06:19 RBC 3.07 L (4.30-5.90) m/uL Hgb 9.3 L (13.0-17.5) gm/dL Hct 29.2 L (39.0-53.0) % Sodium 135 L (137-145) mmol/L Carbon Dioxide 21 L (22-30) mmol/L Creatinine 1.26 H (0.66-1.25) mg/dL Glucose 125 H (74-99) mg/dL POC Glucose (mg/dL) 120 H (75-99) mg/dL Microbiology - Last 24 Hours (Table) 11/24/20 08:21 Blood Culture - Preliminary Blood No Growth after 48 hours Assessment and Plan Assessment: 80 yo male s/p ffs w/o BHT or LOC postop day 2 right ankle ORIF 1. R ankle trimalleolar fracture dislocation 2. Complex medical history 3. S/p FFS Plan: -Appreciate medicine management. -Pain control: Adequate at this time -Aggressive ambulation protocol. OOB with all meals. OOB or in chair 4-5x daily. -PT/OT -TEDs, SCDs, mechanical ppx. OK for heparin today. Early ambulation is best. -GI ppx. -No further imaging needed at this time -Trend labs. -Dispo: Orthopedically stable for THAIS once medically appropriate
[2020-11-27] MEDS ORDERED: ENOXAPARIN 40 MG/0.4 ML SYRINGE SQ SCH (09:00)
[2020-11-27] MEDS: GABAPENTIN 300 MG CAP PO SCH (09:37)
[2020-11-27] MEDS: FOLIC ACID 1 MG TAB PO SCH (09:37)
[2020-11-27] MEDS: PANTOPRAZOLE 40 MG TABLET PO SCH (09:38)
[2020-11-27] MEDS: MULTIVITAMINS, THERA 1 EACH TAB PO SCH (09:38)
[2020-11-27] MEDS: MAGNESIUM OXIDE 400 MG TAB PO SCH (09:38)
[2020-11-27] MEDS: DULoxetine HCL 60 MG CAPSULE.DR PO SCH (09:38)
[2020-11-27] MEDS: FLUTICASONE 50MCG/SPRAY NASAL 16GM EA NOSTRIL SCH (09:48)
[2020-11-27] MEDS: ASPIRIN 81 MG PO SCH (09:48)
--- NOTE | 2020-11-27 11:19 | P.DS ---
Providers Date of admission: 11/24/20 03:13 Expected date of discharge: 11/27/20 Attending physician: Kenneth Luciano MD Consults: 11/23/20 19:36 Consult Physician Urgent Consulting Provider: Brijesh Stanford Consult Reason/Comments: right ankle fracture/dislocation Do you want consulting provider notified?: Already Contacted 11/23/20 19:37 Consult Physician Urgent Consulting Provider: [facility] Consult Reason/Comments: acute syncope Do you want consulting provider notified?: Yes 11/24/20 11:35 Consult Physician Routine Consulting Provider: Nazia Austin Consult Reason/Comments: ICU management Do you want consulting provider notified?: Already Contacted 11/25/20 10:38 Consult Physician Routine Consulting Provider: Joanna Gould Consult Reason/Comments: evaluate need for resuming home med sandostatin Do you want consulting provider notified?: Yes 11/26/20 08:26 Consult Physician Urgent Consulting Provider: Silver Bush Consult Reason/Comments: known to him, discuss continuing sandostatin Do you want consulting provider notified?: Yes Primary care physician: Kenneth Luciano MD Hospital Course: Final Diagnoses: Hypoglycemia, possibly secondary to chronic diarrhea, status post D10 IV fluid resuscitation, PSA ordered Syncope, suspect related to the above Status post fall with right ankle trimalleolar fracture status post reduction, status post Open reduction and internal fixation of RIGHT ankle fracture Hypotension, pressor's weaned off Acute metabolic encephalopathy secondary to hypoglycemia, pain Acute renal failure secondary to dehydration Possible acute UTI, completed antibiotic therapy. CAD Hypertension, history of Hypomagnesemia History of prostate and colon cancer. PSA level pending. History of carcinoid tumor of GI tract, on monthly Sandostatin injections times years, currently on hold, reinitiate outpatient. Iron deficient anemia Hospital course:This is an 80-year-old gentleman status post syncope with fall sustaining right ankle fracture, acute renal failure, hyperkalemia and multiple other medical issues, [facility], became unresponsive with hypoglycemia, calm, hypotensive with systolic blood pressures in the low 80s, maintaining O2 sats in the 90s on room air and transferred to the ICU. Received IV fluid bolus/IV fluid hydration. Weaned off of Levophed since 0300. Currently receiving dextrose 10% with blood sugars ranging from 59 to high 90s. Evaluated by orthopedic surgery and is scheduled for surgery tomorrow. Echo completed, results pending. Telemetry sinus rhythm. Denies chest pain, palpitations or shortness of breath. Afebrile, normal WBC. 11/25/20 blood sugars controlled, maintenance IV changed to D5.9. Creatinine improving, 1.39. Reports right ankle pain .Scheduled for right ankle open reduction and internal fixation today. Telemetry sinus rhythm. LFTs increased, T bili within normal limits. Afebrile, normal WBC. Echo reporting normal LV function , EF 60-65% , mild tricuspid regurgitation .Denies chest pain, palpitations or shortness of breath. Maintaining O2 sats in the high 90s on room air. Sitter at bedside, staff reports patient is impulsive at times; apparently last night patient became more confused, agitated and received one time dose of Seroquel. This morning pleasant, cooperative with significant clinical improvement, A & O3. 11/26/2020 status post right ankle open reduction and internal fixation, postop day #1, tolerated procedure well. Complained of proximal cast tightness, cast overwrap undone as per orthopedic surgery. Blood sugars have remained stable. Sandostatin remains on hold. Sitter remains at bedside, staff reports patient develops sundowners in the evenings. Patient reports not sleeping well, posi tive pain, currently on Seroquel every at bedtime. Significant clinical improvement. Cleared by all consults for discharge. Patient is being discharged to [facility] today in a stable condition with guarded prognosis. Pain management, anticoagulation as per orthopedic surgery. Please note patient is nonweightbearing with assisted device to right lower extremity-please refer to orthopedic discharge and recovery instructions. The impression and plan of care has been dictated as directed. : I performed a history and examination of this patient, discussed the same with the dictator. I agree with the dictator's note ,documented as a scribe. Any additional findings or plans will be noted. Patient Condition at Discharge: Stable Plan - Discharge Summary Discharge Rx Participant: No New Discharge Prescriptions: New HYDROcodone/APAP 5-325MG [[place] 5-325] 1 tab PO Q6HR PRN 3 Days #12 tab PRN Reason: Pain Enoxaparin [Lovenox] 40 mg SQ DAILY #21 syringe Continue Omeprazole [PriLOSEC] 40 mg PO DAILY Folic Acid 1 mg PO DAILY Aspirin EC [Ecotrin Low Dose] 81 mg PO DAILY Gabapentin [Neurontin] 600 mg PO BID Simvastatin [Zocor] 20 mg PO HS QUEtiapine FUMARATE [QUEtiapine FUMARATE ER] 200 mg PO HS Mansoor-Forte 1mg 1 mg PO DAILY DULoxetine HCL [Cymbalta] 60 mg PO BID Magnesium Oxide [[place]] 500 mg PO DAILY Fluticasone Nasal Nogal [Flonase Nasal Nogal] 2 spr EA NOSTRIL DAILY Prevagen 1 tab PO DAILY Loratadine [Claritin] 10 mg PO HS tab Multivitamins, Thera [Multivitamin (formulary)] 1 tab PO DAILY Diphenox-Atrop 2.5-0.025 mg [Lomotil] 2 tab PO QID PRN #24 tab PRN Reason: Diarrhea Octreotide Acetate,Mi-Spheres [SandoSTATIN [place]] 10 mg IM Q30D #0 Octreotide Acetate,Mi-Spheres [SandoSTATIN [place]] 30 mg IM Q30D #0 Discontinued Dicyclomine [Bentyl] 20 mg PO QID PRN PRN Reason: IBS polyethylene glycoL 3350 [Miralax] 17 gm PO DAILY PRN PRN Reason: Constipation Discharge Medication List Omeprazole [PriLOSEC] 40 mg PO DAILY 03/18/16 [History] Aspirin EC [Ecotrin Low Dose] 81 mg PO DAILY 07/29/16 [History] Folic Acid 1 mg PO DAILY 07/29/16 [History] Gabapentin [Neurontin] 600 mg PO BID 04/21/19 [History] Simvastatin [Zocor] 20 mg PO HS 04/21/19 [History] DULoxetine HCL [Cymbalta] 60 mg PO BID 04/04/20 [History] Fluticasone Nasal Nogal [Flonase Nasal Nogal] 2 spr EA NOSTRIL DAILY 04/04/20 [History] Magnesium Oxide [[place]] 500 mg PO DAILY 04/04/20 [History] Prevagen 1 tab PO DAILY 04/04/20 [History] QUEtiapine FUMARATE [QUEtiapine FUMARATE ER] 200 mg PO HS 04/04/20 [History] Mansoor-Forte 1mg 1 mg PO DAILY 04/04/20 [History] Loratadine [Claritin] 10 mg PO HS tab 06/03/20 [Rx] Multivitamins, Thera [Multivitamin (formulary)] 1 tab PO DAILY 10/30/20 [History] Diphenox-Atrop 2.5-0.025 mg [Lomotil] 2 tab PO QID PRN #24 tab 11/27/20 [Rx] Enoxaparin [Lovenox] 40 mg SQ DAILY #21 syringe 11/27/20 [Rx] HYDROcodone/APAP 5-325MG [[place] 5-325] 1 tab PO Q6HR PRN 3 Days #12 tab 11/27/20 [Rx] Octreotide Acetate,Mi-Spheres [SandoSTATIN [place]] 10 mg IM Q30D #0 11/27/20 [Rx] Octreotide Acetate,Mi-Spheres [SandoSTATIN [place]] 30 mg IM Q30D #0 11/27/20 [Rx] Follow up Appointment(s)/Referral(s): Kenneth Luciano MD [Primary Care Provider] - 1 Week (After DC from subacute rehab) [facility], [NON-STAFF] - 1-2 Days Brijesh Stanford DO [Doctor of Osteopathic Medicine] - 2 Weeks Maycol Yepez MD [STAFF PHYSICIAN] - 1 Week Activity/Diet/Wound Care/Special Instructions: Orthopedic Discharge and Recovery Instructions Date of Surgery: 11/25/2020 Diagnosis: Right ankle fracture dislocation Procedure: Right ankle ORIF Medications: See list Weight bearing status: Nonweightbearing with assistive device to right lower extremity All medication refills should be obtained through your primary care doctor or your clinic orthopedic surgeon. Please discuss prescription refills at your follow up appointment. Do not call the hospital for medication refills. Follow up: Please confirm a follow up appointment with your surgeon 2 weeks post operatively. Please make an appointment to follow up with your PCP in 1-2 weeks after surgery for evaluation Cast Care: If you have a cast please keep it clean, dry and intact. Do not put anything down inside the cast. Do no scratch inside the cast. Do not weight bear on the cast. CBC, BMP in 3 days Discharge Disposition: TRANSFER TO SNF/ECF
[2020-11-27 11:21] LABS: Glucose,Whole Blood 111 mg/dL (75-99)
[2020-11-27 11:28] VITALS: BP 120/70; PULSE 93; TEMP 97.8
--- NOTE | 2020-11-27 14:00 | P.PN ---
Subjective Progress Note Date: 11/27/20 Principal diagnosis: History of carcinoid tumor, requesting if patient still requires Sandostatin This is a pleasant 80-year-old white male patient was admitted to the hospital with frequent falls and to be hypoglycemic. During his fall he fractured his right ankle which he underwent surgery. 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 Bush on a regular basis. Continued on the Sandostatin for chronic diarrhea. States he usually has 3-4 bowel movements daily. He is also been taking Lomotil 2 tablets twice a day. This morning the patient states he's not had a bowel movement yesterday, he did have one this afternoon. He denies any abdominal pain, nausea or vomiting. Objective - Vital Signs Vital signs: Vital Signs Temp 98 F 11/27/20 05:30 Pulse 87 11/27/20 05:30 Resp 16 11/27/20 05:30 BP 109/70 11/27/20 05:30 Pulse Ox 94 L 11/27/20 08:51 Intake & Output 11/26/20 11/27/20 11/27/20 18:59 06:59 18:59 Intake Total 225 590 Output Total 1295 900 Balance -1070 -310 Intake: IV 225 Dextrose 5%-0.9% NaCl 1, 225 000 ml @ 75 mls/hr IV . [id number] [facility] Rx#:[id number] Oral 590 Output: Urine 1295 900 Other: Voiding Method External Catheter External Catheter - Exam General appearance: The patient is alert, oriented, appears in no acute distress. HET: Head is normocephalic and atraumatic. Conjunctiva pink. Sclera anicteric. Neck: Supple without lymphadenopathy. Abdomen: Soft, nontender, nondistended with bowel sounds. No guarding or rigidity. Extremities: Normal skin color and turgor. Right ower extremity casted. Skin: No rashes, no jaundice Neurological: No focal deficits. Alert and oriented 3. - Labs CBC & Chem 7: 11/27/20 05:14 11/27/20 05:14 Labs: Abnormal Lab Results - Last 24 Hours (Table) 11/26/20 11/26/20 11/27/20 Range/Units 09:51 12:06 00:20 RBC (4.30-5.90) m/uL Hgb (13.0-17.5) gm/dL Hct (39.0-53.0) % Sodium (137-145) mmol/L Carbon Dioxide (22-30) mmol/L Creatinine (0.66-1.25) mg/dL Glucose (74-99) mg/dL POC Glucose (mg/dL) 114 H 102 H 131 H (75-99) mg/dL 11/27/20 11/27/20 11/27/20 Range/Units 05:14 05:14 06:19 RBC 3.07 L (4.30-5.90) m/uL Hgb 9.3 L (13.0-17.5) gm/dL Hct 29.2 L (39.0-53.0) % Sodium 135 L (137-145) mmol/L Carbon Dioxide 21 L (22-30) mmol/L Creatinine 1.26 H (0.66-1.25) mg/dL Glucose 125 H (74-99) mg/dL POC Glucose (mg/dL) 120 H (75-99) mg/dL Microbiology - Last 24 Hours (Table) 11/24/20 08:21 Blood Culture - Preliminary Blood No Growth after 48 hours Assessment and Plan Assessment: 1. Frequent falls possibly related to hypoglycemia. Patient had a blood sugar at time of admission to the hospital 25. Since being in the hospital blood sugars have been in the normal range. Additional bleed related to Sandostatin [place] which the patient has been on for last [address] Bush is managing. 2. 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 Patient has had symptoms of flushing and diarrhea for the last several years been maintained on Sandostatin [place] 30 mg monthly 3. History of hypertension, hyperlipidemia 4. Right ankle fracture, underwent surgery Plan: 1. Continue with Lomotil 2 tablets 4 times daily 2. Oncology consult and for their recommendation on Sandostatin 3. Continue Bentyl 4 times daily as needed 4. Continue symptomatic supportive care 5. Thank you for this consult we will sign off at this time. Dr. Shelton Gould I agree with the dictator's note, documented as a scribe by Teresa Glover.
[2020-11-27] MEDS: HYDROcodone/APAP 5-325MG 1 EACH TAB PO PRN (14:40)
--- NOTE | 2020-11-28 11:35 | CDI ---
Documentation Clarification Form Date: 11/28/2020 11:31:00 AM From: Ariella Ocampo CCS Phone: If you have a question about this query, please contact Elvira Henderson, Environmental Health And Safety Leader at [phone] between 8am and 5pm Admit Date: 11/24/2020 03:13:00 AM Patient Name: Reinier Bajwa Visit Number: [id number] Discharge Date: 11/27/2020 04:05:00 PM ATTENTION: The Clinical Documentation Specialists (CDI) and [facility] Coding Staff appreciate your assistance in clarifying documentation. Please respond to the clarification below the line at the bottom and electronically sign. The CDI & [facility] Coding staff will review the response and follow-up if needed. Please note: Queries are made part of the Legal Health Record. If you have any questions, please contact the author of this message via ITS. Dr. Kenneth Luciano Procedure note 11/24 documents: ABG reviewed, mild hypercapnia, though the patient is poor candidate for BiPAP due to severe altered mentation -Repeat ABG, if worsening hypercapnia, consider intubation -Case discussed with asphalt distributor tender on-call who agreed with transferred to medical ICU for further management including Levophed infusion Hypotension -S/p 2 L NS bolus -C/w IVFs and start Levophed infusion -Patient received Ceftriaxone in ED for UTI History/Risk Factors: Hypoglycemia, hypotension, Acidosis, HTN, UTI, Malabsorption, CAD Tobacco use: HX Home oxygen: none Clinical Indicators: Vital signs: Pulse oximetry: Lung/Breathing assessment: ABG/CBG: pH 7.17, 7.22 pO2 121, 91 pCO2 55, 43 O2/Vent/BiPap: O2 Nasal Cannula 2 lpm In your professional opinion, can you please clarify if these findings signify one of the following conditions? Acute Respiratory Failure With Hypercapnia Acute on Chronic Respiratory Failure with Hypercapnia Chronic Respiratory Failure with Hypercapnia Hypercapnia Acute Respiratory Distress Acute Respiratory Insufficiency Other Diagnosis, please specify Unable to determine Acute Respiratory Failure With Hypercapnia MTDD
== END 2020-11-27 16:05 | DRG 981 ==
LOC: EC 16:00 → 4SSUR 19:38 → 2SICU 11-24 03:07 → INTOOBSV 11-24 03:13 → OBSVTOIN 11-24 03:13 → 3SCARD 11-27 01:28 → 2SICU 11-27 01:45 → 5NMEDONC 11-27 02:57
PROVIDERS: ADMIT Family Medicine; ATTEND Family Medicine
PROC: 0QSJXZZ Reposition Right Fibula, External Approach (ICD-10-PCS; 2020-11-23)
PROC: 3E033XZ Introduction of Vasopressor into Peripheral Vein, Percutaneous Approach (ICD-10-PCS; 2020-11-24)
PROC: 0QSG04Z Reposition Right Tibia with Internal Fixation Device, Open Approach (ICD-10-PCS; 2020-11-25)
PROC: 0QSJ04Z Reposition Right Fibula with Internal Fixation Device, Open Approach (ICD-10-PCS; principal; 2020-11-25 12:15)
DX: E16.2 Hypoglycemia, unspecified (principal); G93.41 Metabolic encephalopathy; N17.9 Acute kidney failure, unspecified; E87.2 Acidosis; K90.9 Intestinal malabsorption, unspecified; N39.0 Urinary tract infection, site not specified; D69.6 Thrombocytopenia, unspecified; K91.1 Postgastric surgery syndromes; I95.9 Hypotension, unspecified; S82.851A Displaced trimalleolar fracture of right lower leg, initial encounter for closed fracture; E78.5 Hyperlipidemia, unspecified; I10 Essential (primary) hypertension; I25.10 Atherosclerotic heart disease of native coronary artery without angina pectoris; K21.9 Gastro-esophageal reflux disease without esophagitis; M19.90 Unspecified osteoarthritis, unspecified site; K57.30 Diverticulosis of large intestine without perforation or abscess without bleeding; E86.0 Dehydration; E87.5 Hyperkalemia; R06.89 Other abnormalities of breathing; R55 Syncope and collapse; G89.29 Other chronic pain; D50.9 Iron deficiency anemia, unspecified; R29.6 Repeated falls; E83.42 Hypomagnesemia; R45.87 Impulsiveness; R74.8 Abnormal levels of other serum enzymes; W18.30XA Fall on same level, unspecified, initial encounter; Y92.009 Unspecified place in unspecified non-institutional (private) residence as the place of occurrence of the external cause; T38.995A Adverse effect of other hormone antagonists, initial encounter; Z79.82 Long term (current) use of aspirin; Z79.899 Other long term (current) drug therapy; Z85.038 Personal history of other malignant neoplasm of large intestine; Z85.828 Personal history of other malignant neoplasm of skin; Z87.891 Personal history of nicotine dependence; Z85.46 Personal history of malignant neoplasm of prostate; Z90.49 Acquired absence of other specified parts of digestive tract; Z95.1 Presence of aortocoronary bypass graft; Z98.890 Other specified postprocedural states; Z98.52 Vasectomy status; Z87.440 Personal history of urinary (tract) infections; Z87.19 Personal history of other diseases of the digestive system
CPT/HCPCS: 27788; 36415; 36600; 70450; 71045; 71046; 72125; 72128; 80048; 80053; 81001; 82805; 83605; 83735; 84132; 84153; 84484; 84681; 85025; 85610; 85730; 86316; 87040; 93005; 93306; 94760; 96361; 96374; 96375; 96376; 99285

== ENCOUNTER 2020-12-15 12:56 | Observation (INO) | payer MEDICARE, BC ==
--- NOTE | 2020-12-15 13:23 | ED ---
General Adult HPI - General Chief complaint: ENT Stated complaint: Esophageal Blockage Time Seen by Provider: 12/15/20 12:59 Source: patient, RN notes reviewed, old records reviewed Mode of arrival: EMS Limitations: no limitations - History of Present Illness Initial comments: This is an 80-year-old male who presents emergency department stating that he has had multiple dilations of his esophagus. Patient states occasionally when he swallows. It does cause him some pain. Patient states ever since this morning at 7:30 when he ate some toast he has had severe pain anytime he swallows anything. He states even swallowing water or pop causes some s ignificant pain in his esophagus. Patient denies any difficulty breathing or shortness of breath. Patient denies any recent fever chills. Patient states this morning he had some toast and a recent sense becomes extremely painful to swallow anything. Patient states now liquids seem to eventually go down but it causes him quite a bit of pain. - Related Data Home Medications Medication Instructions Recorded Confirmed Aspirin EC [Ecotrin Low Dose] 81 mg PO HS 07/29/16 12/15/20 Folic Acid 1 mg PO HS 07/29/16 12/15/20 Gabapentin [Neurontin] 600 mg PO BID 04/21/19 12/15/20 Simvastatin [Zocor] 20 mg PO HS@199904/21/19 12/15/20 DULoxetine HCL [Cymbalta] 60 mg PO BID 04/04/20 12/15/20 Fluticasone Nasal [place] [Flonase 2 spr EA NOSTRIL DAILY 04/04/20 12/15/20 Nasal [place]] QUEtiapine FUMARATE [QUEtiapine 200 mg PO HS@199904/04/20 12/15/20 FUMARATE ER] Multivitamins, Thera [Multivitamin 1 tab PO HS 10/30/20 12/15/20 (formulary)] Acetaminophen Tab [Tylenol] 650 mg PO Q6H 12/15/20 12/15/20 Lansoprazole [Prevacid] 15 mg PO DAILY 12/15/20 12/15/20 Loratadine [Claritin] 10 mg PO HS@199912/15/20 12/15/20 Previous Rx's Medication Instructions Recorded Dicyclomine [Bentyl] 10 mg PO QID #1 capsule 11/27/20 Diphenox-Atrop 2.5-0.025 mg 2 tab PO QID PRN #24 tab 11/27/20 [Lomotil] Enoxaparin [Lovenox] 40 mg SQ DAILY #21 syringe 11/27/20 HYDROcodone/APAP 5-325MG [[place] 1 tab PO Q6HR PRN 3 Days #12 tab 11/27/20 5-325] Allergies Allergy/AdvReac Type Severity Reaction Status Date / Time No Known Allergies Allergy Verified 10/30/20 18:55 Review of Systems ROS Statement: Those systems with pertinent positive or pertinent negative responses have been documented in the HPI. ROS Other: All systems not noted in ROS Statement are negative. Past Medical History Past Medical History: Coronary Artery Disease (CAD), Cancer, GERD/Reflux, Hype rlipidemia, Hypertension, Osteoarthritis (OA), Prostate Disorder, Syncope Additional Past Medical History / Comment(s): HX OF PROSTATE AND COLON CANCER, SKIN CANCER ON NOSE AND RIGHT EAR, BACK PAIN, chronic diarrhea (8 months). History of sigmoid diverticulosis, ileus, carcinoid syndrome History of Any Multi-Drug Resistant Organisms: None Reported Past Surgical History: Bowel Resection, Cholecystectomy, Coronary Bypass/CABG, Heart Catheterization, Hernia Repair, Prostate Surgery Additional Past Surgical History / Comment(s): X2 PENILE IMPLANT, RADIOACTIVE SEEDS FOR PROSTATE CANCER, FUNDOPLICATION & REVISION, EGD, LASIK EYE SURG, VASECTOMY. , STATES BILATERAL INGUINAL HERNIA REPAIR. bowel resect Past Anesthesia/Blood Transfusion Reactions: No Reported Reaction Past Psychological History: No Psychological Hx Reported Smoking Status: Never smoker Past Alcohol Use History: None Reported Past Drug Use History: None Reported - Past Family History Mother Family Medical History: No Reported History General Exam - General Exam Comments Initial Comments: GENERAL: Patient is well-developed and well-nourished. Patient is nontoxic and well-hyd rated and is in moderate distress when he is swallowing. ENT: Neck is soft and supple. No significant lymphadenopathy is noted. Oropharynx is clear. Moist mucous membranes. Neck has full range of motion without eliciting any pain. EYES: The sclera were anicteric and conjunctiva were pink and moist. Extraocular movements were intact and pupils were equal round and reactive to light. Eyelid s were unremarkable. PULMONARY: Unlabored respirations. Good breath sounds bilaterally. No audible rales rhonchi or wheezing was noted. CARDIOVASCULAR: There is a regular rate and rhythm without any murmurs gallops or rubs. ABDOMEN: Soft and nontender with normal bowel sounds. SKIN: Skin is clear with no lesions or rashes and otherwise unremarkable. NEUROLOGIC: Patient is alert and oriented x3. Cranial nerves II through XII are grossly intact. Motor and sensory are also intact. Normal speech, volume and content. Symmetrical smile. MUSCULOSKELETAL: Normal extremities with adequate strength and full range of motion. LYMPHATICS: No significant lymphadenopathy is noted PSYCHIATRIC: Normal psychiatric evaluation. Limitations: no limitations Course Vital Signs 12/15/20 12/15/20 12:59 14:30 Temperature 98.2 F Pulse Rate 9 L 73 Respiratory 16 18 Rate Blood Pressure 143/113 160/100 O2 Sat by Pulse 100 99 Oximetry Medical Decision Making - Medical Decision Making EKG shows normal sinus rhythm at 81 bpm DC interval is 184 QRS is 82 QT interval 394 QTC is 457. EKG shows no ST segment elevation or depression. I spoke with Dr. Graham he agreed to come down and see the patient he determined to do an endoscopy on the patient in the emergency department. Patient had complete food impaction of the esophagus and Dr. Graham removed all of the food. Dr. Graham recommended the patient be admitted and observed overnight for possible aspiration. Dr. Johnson was contacted he agreed to admit the patient admitted the patient 23 hours a consult to Dr. Graham. Patient's initial chest x-ray showed no signs of pneumonia or aspiration. - Lab Data Result diagrams: 12/15/20 13:27 12/15/20 13:27 Lab Results 12/15/20 12/15/20 Range/Units 13:27 13:27 WBC 5.2 (3.8-10.6) k/uL RBC 3.23 L (4.30-5.90) m/uL Hgb 10.4 L (13.0-17.5) gm/dL Hct 30.3 L (39.0-53.0) % MCV 93.8 (80.0-100.0) fL MCH 32.4 (25.0-35.0) pg MCHC 34.5 (31.0-37.0) g/dL RDW 12.9 (11.5-15.5) % Plt Count 174 (150-450) k/uL MPV 7.6 Neutrophils % 64 % Lymphocytes % 25 % Monocytes % 6 % Eosinophils % 3 % Basophils % 1 % Neutrophils # 3.3 (1.3-7.7) k/uL Lymphocytes # 1.3 (1.0-4.8) k/uL Monocytes # 0.3 (0-1.0) k/uL Eosinophils # 0.2 (0-0.7) k/uL Basophils # 0.1 (0-0.2) k/uL Sodium 135 L (137-145) mmol/L Potassium 5.4 H (3.5-5.1) mmol/L Chloride 102 (98-107) mmol/L Carbon Dioxide 22 (22-30) mmol/L Anion Gap 11 mmol/L BUN 21 H (9-20) mg/dL Creatinine 1.25 (0.66-1.25) mg/dL Est GFR (CKD-EPI)AfAm 63 (>60 ml/min/1.73 sqM) Est GFR (CKD-EPI)NonAf 54 (>60 ml/min/1.73 sqM) Glucose 117 H (74-99) mg/dL Calcium 10.5 H (8.4-10.2) mg/dL Total Bilirubin 0.9 (0.2-1.3) mg/dL AST 59 (17-59) U/L ALT 44 (4-49) U/L Alkaline Phosphatase 142 H (38-126) U/L Total Protein 8.7 H (6.3-8.2) g/dL Albumin 4.9 (3.5-5.0) g/dL Disposition Clinical Impression: Esophageal foreign body Disposition: ADMITTED IP TO THIS HOSP Referrals: Gail Tidwell DO [Primary Care Provider] - 1-2 days Time of Disposition: 15:31
[2020-12-15 13:32] LABS: Basophils # (A) 0.1 k/uL (0-0.2); Basophils % (A) 1 %; Eosinophils # (A) 0.2 k/uL (0-0.7); Eosinophils % (A) 3 %; HCT 30.3 % (39.0-53.0); HGB 10.4 gm/dL (13.0-17.5); Lymphocytes # (A) 1.3 k/uL (1.0-4.8); Lymphocytes % (A) 25 %; MCH 32.4 pg (25.0-35.0); MCHC 34.5 g/dL (31.0-37.0); MCV 93.8 fL (80.0-100.0); Mean Platelet Volume 7.6; Monocytes # (A) 0.3 k/uL (0-1.0); Monocytes % (A) 6 %; Neutrophils # (A) 3.3 k/uL (1.3-7.7); Neutrophils % (A) 64 %; Platelet Count 174 k/uL (150-450); RBC 3.23 m/uL (4.30-5.90); RDW 12.9 % (11.5-15.5); WBC 5.2 k/uL (3.8-10.6)
[2020-12-15 13:41] LABS: Calcium 10.5 mg/dL (8.4-10.2); Total Bilirubin 0.9 mg/dL (0.2-1.3)
[2020-12-15 13:45] LABS: Potassium 5.4 mmol/L (3.5-5.1)
[2020-12-15 13:46] LABS: Albumin 4.9 g/dL (3.5-5.0); Total Protein 8.7 g/dL (6.3-8.2)
--- NOTE | 2020-12-15 14:01 | XR ---
EXAMINATION TYPE: XR chest 2V DATE OF EXAM: 12/15/2020 COMPARISON: Chest x-ray November 26, 2020. HISTORY: Choking and difficulty breathing. History of esophageal dilatations. TECHNIQUE: Frontal and lateral views of the chest are obtained. FINDINGS: Overlying sternal wires and mediastinal clips redemonstrated. There is chronic parenchymal change without suspicious focal air space opacity, pleural effusion, or pneumothorax seen. The card iac silhouette size is stable and within normal limits. Cholecystectomy clips are redemonstrated. De generative change bilateral shoulders and spine. IMPRESSION: Chronic changes without acute pulmonary process.
--- NOTE | 2020-12-15 14:08 | XR ---
EXAMINATION TYPE: XR soft tissue neck DATE OF EXAM: 12/15/2020 COMPARISON: CT cervical spine November 23, 2020. HISTORY: Dysphagia. Choking episodes. History of esophageal dilatation. TECHNIQUE: 2 view soft tissue neck. FINDINGS: No suspicious prevertebral soft tissue swelling. Region of epiglottis and vallecula appear within normal limits. No suspicious narrowing of the subglottic airway on the frontal view. Prominent spur inferior anterior C5 level is redemonstrated. Partial visualization of overlying sternal wires. Moderate calcified plaque left carotid bulb is redemonstrated. IMPRESSION: As above. No acute findings are evident.
[2020-12-15] MEDS ORDERED: SUCCINYLCHOLINE CHLORIDE 100 MG/5 ML SYR IV ONE (14:40)
[2020-12-15] MEDS ORDERED: KETAMINE 10 MG/ML 20 ML VIAL ONE (14:40)
[2020-12-15] MEDS ORDERED: LIDOCAINE 1% INJ 10MG/ML (20 ML MDV) ONE (14:40)
[2020-12-15] MEDS ORDERED: PROPOFOL 10 MG/ML 20 ML VIAL IV ONE (14:40)
[2020-12-15] MEDS ORDERED: SODIUM CHLORIDE 0.9% 1,000 ML IV ONE (15:32)
--- NOTE | 2020-12-15 15:41 | P.CONS ---
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 The patient reports a long-standing history of difficulty swallowing in the past. He reports surgery on his esophagus in the past and is followed up as [facility] and [facility] in the past. He does report dilations and believes his last was approximately 5 years ago. He presented to the hospital due to difficulty swallowing. He reported severe pain and difficulty tolerating secretions after eating toast earlier this morning. Review of Systems REVIEW OF SYSTEMS: CONSTITUTIONAL: Denies any fevers, chills, weight change or fatigue. CARDIOVASCULAR: Denies any chest pain, palpitations high or low blood pressures RESPIRATORY: Denies any shortness of breath, hemoptysis or cough. GENITOURINARY: No dysuria or hematuria. MUSCULOSKELETAL: No weakness reported, recent fracture of the right foot after fall. SKIN: Denies any new rashes or lesions, jaundice or pallor. PSYCHIATRIC: Denies any depression or anxiety. NEUROLOGY: Denies headache, denies any new focal deficits. EARS/NOSE/THROAT: No recent hearing change, congestion, nasal discharge or sore throat. EYES: No pain in eyes, discharge or change in vision. GASTROINTESTINAL: As per HPI. Past Medical History Past Medical History: Coronary Artery Disease (CAD), Cancer, GERD/Reflux, Hyperlipidemia, Hypertension, Osteoarthritis (OA), Prostate Disorder, Syncope Additional Past Medical History / Comment(s): HX OF PROSTATE AND COLON CANCER, SKIN CANCER ON NOSE AND RIGHT EAR, BACK PAIN, chronic diarrhea (8 months). History of sigmoid diverticulosis, ileus, carcinoid syndrome History of Any Multi-Drug Resistant Organisms: None Reported Past Surgical History: Bowel Resection, Cholecystectomy, Coronary Bypass/CABG, Heart Catheterization, Hernia Repair, Prostate Surgery Additional Past Surgical History / Comment(s): X2 PENILE IMPLANT, RADIOACTIVE SEEDS FOR PROSTATE CANCER, FUNDOPLICATION & REVISION, EGD, LASIK EYE SURG, VA SECTOMY. , STATES BILATERAL INGUINAL HERNIA REPAIR. bowel resect Past Anesthesia/Blood Transfusion Reactions: No Reported Reaction Past Psychological History: No Psychological Hx Reported Smoking Status: Never smoker Past Alcohol Use History: None Reported Past Drug Use History: None Reported - Past Family History Mother Family Medical History: No Reported History Medications and Allergies Home Medications Medication Instructions Recorded Confirmed Type Aspirin EC [Ecotrin Low Dose] 81 mg PO HS 07/29/16 12/15/20 History Folic Acid 1 mg PO HS 07/29/16 12/15/20 History Gabapentin [Neurontin] 600 mg PO BID 04/21/19 12/15/20 History Simvastatin [Zocor] 20 mg PO HS@199904/21/19 12/15/20 History DULoxetine HCL [Cymbalta] 60 mg PO BID 04/04/20 12/15/20 History Fluticasone Nasal [place] [Flonase 2 spr EA NOSTRIL DAILY 04/04/20 12/15/20 History Nasal [place]] QUEtiapine FUMARATE [QUEtiapine 200 mg PO HS@199904/04/20 12/15/20 History FUMARATE ER] Multivitamins, Thera [Multivitamin 1 tab PO HS 10/30/20 12/15/20 History (formulary)] Dicyclomine [Bentyl] 10 mg PO QID #1 capsule 11/27/20 12/15/20 Rx Diphenox-Atrop 2.5-0.025 mg 2 tab PO QID PRN #24 tab 11/27/20 12/15/20 Rx [Lomotil] Enoxaparin [Lovenox] 40 mg SQ DAILY #21 syringe 11/27/20 12/15/20 Rx HYDROcodone/APAP 5-325MG [[place] 1 tab PO Q6HR PRN 3 Days #12 tab 11/27/20 12/15/20 Rx 5-325] Acetaminophen Tab [Tylenol] 650 mg PO Q6H 12/15/20 12/15/20 History Lansoprazole [Prevacid] 15 mg PO DAILY 12/15/20 12/15/20 History Loratadine [Claritin] 10 mg PO HS@199912/15/20 12/15/20 History Allergies Allergy/AdvReac Type Severity Reaction Status Date / Time No Known Allergies Allergy Verified 10/30/20 18:55 Physical Exam Vitals: Vital Signs Temp Pulse Resp BP Pulse Ox 12/15/20 14:30 73 18 160/100 99 03/08/21 12:59 98.2 F 9 L 16 143/113 100 Intake and Output 12/15/20 12/15/20 12/15/20 06:59 14:59 22:59 Other: Weight 68.039 kg On physical examination, patient appears comfortable in no apparent distress. HEAD: Normocephalic, atraumatic. EYES: No scleral icterus. No conjunctival injection. MOUTH: No lesions, tongue midline. NECK: Trachea midline, no gross abnormalities. CHEST: Decreased air entry in all laboy. HEART: S1-S2 appreciated. ABDOMEN: Soft, nontender to palpation. Bowel sounds are positive. No organomegaly. No guarding or rigidity. EXTREMITIES: No pedal edema, boot on right foot. SKIN: No rashes, no jaundice. NEUROLOGIC: Alert and oriented x3. No focal deficits. Results CBC & Chem 7: 12/15/20 13:27 12/15/20 13:27 Labs: Abnormal Lab Results - Last 24 Hours (Table) 12/15/20 12/15/20 Range/Units 13:27 13:27 RBC 3.23 L (4.30-5.90) m/uL Hgb 10.4 L (13.0-17.5) gm/dL Hct 30.3 L (39.0-53.0) % Sodium 135 L (137-145) mmol/L Potassium 5.4 H (3.5-5.1) mmol/L BUN 21 H (9-20) mg/dL Glucose 117 H (74-99) mg/dL Calcium 10.5 H (8.4-10.2) mg/dL Alkaline Phosphatase 142 H (38-126) U/L Total Protein 8.7 H (6.3-8.2) g/dL Chest x-ray: report reviewed (Chronic changes seen on chest x-ray) Assessment and Plan (1) Esophageal foreign body Narrative/Plan: 80-year-old male with multiple medical comorbidities including swallowing in the past for which he reports esophageal surgery but is unable to give more details of the surgery he also reports multiple dilations in the past who presented with difficulty swallowing. He reports symptoms occur after eating toast this morning. He reports difficulty tolerating secretions and eating or drinking after this. Concern is for possible esophageal foreign body and patient will be taken for EGD for further evaluation. Current Visit: Yes Status: Acute Code(s): T18.108A - UNSP FOREIGN BODY IN ESOPHAGUS CAUSING OTH INJURY, INIT SNOMED Code(s): 76186642 (2) Chronic diarrhea Current Visit: No Status: Acute Code(s): K52.9 - NONINFECTIVE GASTROENTERITIS AND COLITIS, UNSPECIFIED SNOMED Code(s): 945393438 Plan: Supportive care Nothing by mouth Hold medications at this time Plan for emergent EGD for further evaluation Given current anticoagulation use original plan for dilation Thank you for allowing us to participate in the care of the patient, further rec ommendations pending findings of procedure
--- NOTE | 2020-12-15 15:44 | P.PCN ---
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 The patient reports a long-standing history of difficulty swallowing in the past. He reports surgery on his esophagus in the past and is followed up as [facility] and [facility] in the past. He does report dilations and believes his last was approximately 5 years ago. He presented to the hospital due to difficulty swallowing. He reported severe pain and difficulty tolerating secretions after eating toast earlier this morning. PROCEDURE PERFORMED: Esophagogastroduodenoscopy with foreign body removal. PREOPERATIVE DIAGNOSIS: Esophageal foreign body, dysphagia. ESTIMATED BLOOD LOSS: Minimal. IV sedation per anesthesia. PROCEDURE: After informed consent was obtained, the patient was brought into the endoscopy unit. IV sedation was administered by Anesthesia under continuous monitoring. Initially the Olympus GIF-190 video endoscope was inserted into the mouth. Esophagus intubated without any difficulty. It was gradually advanced into the esophagus where a large amount of food was noted throughout the esophagus. The esophagus was able to be traversed and the stomach intubated. The food/foreign body in the esophagus was then gently pushed in piecemeal fashion into the stomach. The scope was then advanced back into the stomach and duodenum and carefully examined. The bulb and the second part of the duodenum appeared normal. The scope at this time was withdrawn to the stomach, adequately insufflated with air, and upon careful examination, mucosa of the antrum, body, cardia and the fundus appeared normal. The scope was then withdrawn into the esophagus. The GE junction was located at 39 cm from the incisors. The esophagus appeared somewhat abnormal as the esophagus was very tortuous with what appeared to be a diverticulum in the distal esophagus. There were no erosions or ulcerations seen and the patient tolerated the procedure well. IMPRESSION: 1. Esophageal foreign body with removal. 2. Tortuous fluid-filled esophagus with possible distal esophageal diverticulum. RECOMMENDATIONS: The findings of this examination were discussed with the patient in the emergency department team. At this time would recommend patient be admitted for observation due to the amount of food in his esophagus a possibility of aspiration. Otherwise okay to continue other medications. Patient is okay for liquid diet today.
[2020-12-15 17:27] VITALS: RESP 18
[2020-12-15] MEDS ORDERED: DIPHENOX-ATROP 2.5-0.025 MG 1 EACH TAB PO PRN (19:44)
[2020-12-15] MEDS ORDERED: HYDROcodone/APAP 5-325MG 1 EACH TAB PO PRN (19:44)
[2020-12-15] MEDS ORDERED: ATORVASTATIN 10 MG TAB PO SCH (20:00)
[2020-12-15] MEDS ORDERED: ENOXAPARIN 40 MG/0.4 ML SYRINGE SQ SCH (20:00)
[2020-12-15] MEDS ORDERED: LORATADINE 10 MG TAB PO SCH (20:00)
[2020-12-15] MEDS: DULoxetine HCL 60 MG CAPSULE.DR PO SCH (20:04)
[2020-12-15] MEDS: GABAPENTIN 300 MG CAP PO SCH (20:04)
[2020-12-15] MEDS: QUEtiapine 100 MG TAB PO SCH ×2 (20:06→21:09)
[2020-12-15] MEDS: DICYCLOMINE 10 MG CAP PO SCH (20:06)
[2020-12-15] MEDS ORDERED: ASPIRIN 81 MG PO SCH (21:00)
[2020-12-16 07:47] VITALS: BP 108/69; PULSE 85; TEMP 97.9
[2020-12-16] MEDS: DICYCLOMINE 10 MG CAP PO SCH ×2 (09:29→13:26)
[2020-12-16] MEDS: GABAPENTIN 300 MG CAP PO SCH (09:29)
[2020-12-16] MEDS: DULoxetine HCL 60 MG CAPSULE.DR PO SCH (09:30)
[2020-12-16] MEDS: QUEtiapine 100 MG TAB PO SCH (09:30)
--- NOTE | 2020-12-16 09:51 | P.DS ---
Providers Date of admission: 12/15/20 15:32 Expected date of discharge: 12/16/20 Attending physician: Kenneth Luciano MD Consults: 12/15/20 15:32 Consult Physician Urgent Consulting Provider: Rob Graham Consult Reason/Comments: Esophageal foreign body Do you want consulting provider notified?: Yes Primary care physician: Gail Tidwell [facility] Course: Final Diagnoses: Status post emergent EGD secondary to Esophageal foreign body with removal Tortuous fluid-filled esophagus with possible distal esophageal diverticulum History of recent fall with right ankle trimalleolar fracture status post reduction, status post Open reduction and internal fixation of RIGHT ankle fracture CAD Hypertension History of prostate and colon cancer. PSA level pending. History of carcinoid tumor with small bowel resection in 2012, subsequent chronic severe diarrhea on Sandostatin Iron deficient anemia Hospital course: This is an 80-year-old gentleman currently at [facility] with multiple medical issues including CAD, gastroesophageal reflux disease, anemia, carcinoid tumor with small bowel resection in 2012 with subsequent severe diarrhea on Sandostatin presented with difficulty swallowing with severe pain after eating a piece of toast, states last dilation was about 5 years ago. Evaluated by GI and underwent EGD with foreign body removal. Tolerated procedure well. Currently tolerating pudding with no complaints of pain or difficulty swallowing. Recommending using original plan regarding dilation, secondary to currently on anticoagulation. Patient will be discharged to [facility] subacute rehab pending final DC recommendations and clearance from GI. GENERAL: Sitting up in chair, no acute distress HEENT: Normocephalic, atraumatic. No scleral icterus. Conjunctiva normal. NECK: Supple, no JVD .Trachea midline. CHEST: Lungs essentially clear with bilateral diminished bases. HEART: S1-S2, regular, no murmurs rubs ABDOMEN: Soft, nondistended, nontender.positive bowel sounds. No organomegaly. No guarding or rigidity. EXTREMITIES: No pedal edema, boot on right foot. SKIN: No rashes, no jaundice. NEUROLOGIC: Alert and oriented x3. No focal deficits. The impression and plan of care has been dictated as directed. : I performed a history and examination of this patient, discussed the same with the dictator. I agree with the dictator's note ,documented as a scribe. Any additional findings or plans will be noted. Patient Condition at Discharge: Stable Plan - Discharge Summary Discharge Rx Participant: Yes New Discharge Prescriptions: No Action Folic Acid 1 mg PO HS Aspirin EC [Ecotrin Low Dose] 81 mg PO HS Gabapentin [Neurontin] 600 mg PO BID Simvastatin [Zocor] 20 mg PO HS@1999 QUEtiapine FUMARATE [QUEtiapine FUMARATE ER] 200 mg PO HS@1999 DULoxetine HCL [Cymbalta] 60 mg PO BID Fluticasone Nasal [place] [Flonase Nasal [place]] 2 spr EA NOSTRIL DAILY Multivitamins, Thera [Multivitamin (formulary)] 1 tab PO HS HYDROcodone/APAP 5-325MG [[place] 5-325] 1 tab PO Q6HR PRN 3 Days #12 tab PRN Reason: Pain Enoxaparin [Lovenox] 40 mg SQ DAILY #21 syringe Diphenox-Atrop 2.5-0.025 mg [Lomotil] 2 tab PO QID PRN #24 tab PRN Reason: Diarrhea Dicyclomine [Bentyl] 10 mg PO QID #1 capsule Acetaminophen Tab [Tylenol] 650 mg PO Q6H Lansoprazole [Prevacid] 15 mg PO DAILY Loratadine [Claritin] 10 mg PO HS@1999 Discharge Medication List Aspirin EC [Ecotrin Low Dose] 81 mg PO HS 07/29/16 [History] Folic Acid 1 mg PO HS 07/29/16 [History] Gabapentin [Neurontin] 600 mg PO BID 04/21/19 [History] Simvastatin [Zocor] 20 mg PO HS@199904/21/19 [History] DULoxetine HCL [Cymbalta] 60 mg PO BID 04/04/20 [History] Fluticasone Nasal [place] [Flonase Nasal [place]] 2 spr EA NOSTRIL DAILY 04/04/20 [History] QUEtiapine FUMARATE [QUEtiapine FUMARATE ER] 200 mg PO HS@199904/04/20 [History] Multivitamins, Thera [Multivitamin (formulary)] 1 tab PO HS 10/30/20 [History] Dicyclomine [Bentyl] 10 mg PO QID #1 capsule 11/27/20 [Rx] Diphenox-Atrop 2.5-0.025 mg [Lomotil] 2 tab PO QID PRN #24 tab 11/27/20 [Rx] Enoxaparin [Lovenox] 40 mg SQ DAILY #21 syringe 11/27/20 [Rx] HYDROcodone/APAP 5-325MG [[place] 5-325] 1 tab PO Q6HR PRN 3 Days #12 tab 11/27/20 [Rx] Acetaminophen Tab [Tylenol] 650 mg PO Q6H 12/15/20 [History] Lansoprazole [Prevacid] 15 mg PO DAILY 12/15/20 [History] Loratadine [Claritin] 10 mg PO HS@199912/15/20 [History] Follow up Appointment(s)/Referral(s): Gail Tidwell DO [Primary Care Provider] - 1-2 days
[2020-12-16 10:38] LABS: African American GFR (CKD) 63 (>60 ml/min/1.73 sqM); Anion Gap 16 mmol/L; Blood Urea Nitrogen 21 mg/dL (9-20); Calcium 9.8 mg/dL (8.4-10.2); Carbon Dioxide 16 mmol/L (22-30); Chloride 104 mmol/L (98-107); Glucose 178 mg/dL (74-99); Non-African American GFR(CKD) 55 (>60 ml/min/1.73 sqM); Potassium 5.5 mmol/L (3.5-5.1); Sodium 136 mmol/L (137-145)
--- NOTE | 2020-12-16 11:26 | P.PN ---
Subjective Progress Note Date: 12/16/20 Principal diagnosis: Foreign body removal Patient is seen and examined sitting up in the reclining chair. He is status post upper endoscopy with foreign body removal. He states he has been tolerating clear liquids through the night. Denies any nausea, vomiting, or regurgitation. Denies any throat, abdominal pain or Epigastric pain. Objective - Vital Signs Vital signs: Vital Signs Temp 97.9 F 12/16/20 07:00 Pulse 85 12/16/20 07:00 Resp 18 12/16/20 07:00 BP 108/69 12/16/20 07:00 Pulse Ox 99 12/16/20 07:00 Intake & Output 12/15/20 12/16/20 12/16/20 18:59 06:59 18:59 Output Total 200 100 200 Balance -200 -100 -200 Weight 68.039 kg Output: Urine 200 200 Urine/Stool Mix 100 Other: Voiding Method Toilet # Voids 3 - Exam General appearance: The patient is alert, oriented, appears in no acute distress. HET: Head is normocephalic and atraumatic. Conjunctiva pink. Sclera anicteric. Neck: Supple without lymphadenopathy. Abdomen: Soft, nontender, nondistended with bowel sounds. No guarding or rigidity. Extremities: Normal skin color and turgor. No pedal edema Skin: No rashes, no jaundice Neurological: No focal deficits. Alert and oriented 3. - Labs CBC & Chem 7: 12/15/20 13:27 12/16/20 09:55 Labs: Abnormal Lab Results - Last 24 Hours (Table) 12/15/20 12/15/20 Range/Units 13:27 13:27 RBC 3.23 L (4.30-5.90) m/uL Hgb 10.4 L (13.0-17.5) gm/dL Hct 30.3 L (39.0-53.0) % Sodium 135 L (137-145) mmol/L Potassium 5.4 H (3.5-5.1) mmol/L BUN 21 H (9-20) mg/dL Glucose 117 H (74-99) mg/dL Calcium 10.5 H (8.4-10.2) mg/dL Alkaline Phosphatase 142 H (38-126) U/L Total Protein 8.7 H (6.3-8.2) g/dL Assessment and Plan (1) Esophageal foreign body Narrative/Plan: [id number] male with multiple medical comorbidities including swelling in the past for which he reports esophageal surgery but is unable to give more details of the surgery. He also reports multiple dilations in the past who presented with difficulty swallowing. He reports symptoms occurred after eating some toast this morning. He reports difficulty tolerating secretions and eating or drinking after this. Concern was for possible esophageal foreign body. The patient is status post EGD with foreign body removal. Findings included esophageal foreign body with removal, tortuous fluid-filled esophagus with possible distal esophageal diverticulum. Current Visit: Yes Status: Acute Code(s): T18.108A - UNSP FOREIGN BODY IN ESOPHAGUS CAUSING OTH INJURY, INIT SNOMED Code(s): 78384324 (2) Chronic diarrhea Current Visit: No Status: Acute Code(s): K52.9 - NONINFECTIVE GASTROENTERITIS AND COLITIS, UNSPECIFIED SNOMED Code(s): 522054355 Plan: Supportive care Status post EGD with foreign body removal Patient may have full liquid diet and advance to chopped diet for lunch if tolerated Patient may be discharged home from a gastroenterology standpoint once medically cleared Instructed to eat small bites and chew well Thank you for this consultation, we will sign off at this time Dr. Graham I agree with the dictator's note, documented as a scribe by Teresa Glover.
== END 2020-12-16 14:22 ==
LOC: EC 12:56 → 6NMEDSUR 15:32
PROVIDERS: ADMIT Family Medicine; ATTEND Family Medicine
DX: T18.128A Food in esophagus causing other injury, initial encounter (principal); K21.9 Gastro-esophageal reflux disease without esophagitis; K52.9 Noninfective gastroenteritis and colitis, unspecified; I10 Essential (primary) hypertension; K57.30 Diverticulosis of large intestine without perforation or abscess without bleeding; E78.5 Hyperlipidemia, unspecified; D50.9 Iron deficiency anemia, unspecified; I25.10 Atherosclerotic heart disease of native coronary artery without angina pectoris; Z79.899 Other long term (current) drug therapy; Z95.1 Presence of aortocoronary bypass graft; Z85.038 Personal history of other malignant neoplasm of large intestine; Z90.49 Acquired absence of other specified parts of digestive tract; Z85.46 Personal history of malignant neoplasm of prostate; Z85.828 Personal history of other malignant neoplasm of skin; Z20.822 Contact with and (suspected) exposure to COVID-19; Y92.89 Other specified places as the place of occurrence of the external cause; Z87.81 Personal history of (healed) traumatic fracture
CPT/HCPCS: 99285; 36415; 93005; 80053; 80048; 85025; 87635; 70360; 71046; 43247; G0378 ×2; J2001; J1650; J0330; J2704

== ENCOUNTER → 2021-03-19 | Day surgery (SDC) | payer MEDICARE, BC ==
[2021-03-17 10:48] VITALS: BMI 23.5
[~2021-03-19] MED LIST changes: -FAMOTIDINE 20 MG/2 ML VIAL IV ONE; +LACTATED RINGERS 1,000 ML IV SCH; +LIDOCAINE 1% (10MG/ML) FOR IV START INTRADERMA ONE; +LIDOCAINE 1% INJ 10MG/ML (20 ML MDV) ONE; +PROPOFOL 10 MG/ML 20 ML VIAL IV ONE; -ceFAZolin 1,000 MG in DEXTROSE/WATER 1 50ML.BAG IV ONE
[2021-03-19 08:49] VITALS: TEMP 97.4
--- NOTE | 2021-03-19 09:42 | P.GSHP ---
History of Present Illness H&P Date: 03/19/21 Chief Complaint: Dysphagia This is an 80-year-old male who has complaints of mild dysphagia. Patient states he feels food being stuck in the esophagus. He presents today for EGD Past Medical History Past Medical History: Coronary Artery Disease (CAD), Cancer, GERD/Reflux, Hyperlipidemia, Hypertension, Osteoarthritis (OA), Prostate Disorder, Syncope Additional Past Medical History / Comment(s): HX OF PROSTATE AND COLON CANCER, SKIN CANCER ON NOSE AND RIGHT EAR, BACK PAIN, chronic diarrhea (8 months) History of sigmoid diverticulosis, ileus, carcinoid syndrome, DIFFICULTY SWALLOWING History of Any Multi-Drug Resistant Organisms: None Reported Past Surgical History: Bowel Resection, Cholecystectomy, Coronary Bypass/CABG, Heart Catheterization, Hernia Repair, Prostate Surgery Additional Past Surgical History / Comment(s): X2 PENILE IMPLANT, RADIOACTIVE SEEDS FOR PROSTATE CANCER, FUNDOPLICATION & REVISION, EGD, LASIK EYE SURG, VASECTOMY. , STATES BILATERAL INGUINAL HERNIA REPAIR. bowel resect Past Anesthesia/Blood Transfusion Reactions: No Reported Reaction Smoking Status: Never smoker - Past Family History Mother Family Medical History: No Reported History Medications and Allergies Home Medications Medication Instructions Recorded Confirmed Type Aspirin EC [Ecotrin Low Dose] 81 mg PO HS 07/29/16 03/19/21 History Folic Acid 1 mg PO HS 07/29/16 03/19/21 History Simvastatin [Zocor] 20 mg PO HS@199904/21/19 03/19/21 History DULoxetine HCL [Cymbalta] 60 mg PO BID 04/04/20 03/19/21 History Fluticasone Nasal [place] [Flonase 2 spr EA NOSTRIL DAILY 04/04/20 03/19/21 History Nasal [place]] Multivitamins, Thera [Multivitamin 1 tab PO HS 10/30/20 03/19/21 History (formulary)] Dicyclomine [Bentyl] 10 mg PO QID #1 capsule 11/27/20 03/19/21 Rx Acetaminophen Tab [Tylenol] 650 mg PO Q6H 12/15/20 03/19/21 History Lansoprazole [Prevacid] 15 mg PO DAILY 12/15/20 03/19/21 History Loratadine [Claritin] 10 mg PO HS@199912/15/20 03/19/21 History Diphenox-Atrop 2.5-0.025 mg 2 tab PO QID PRN #24 tab 12/16/20 03/19/21 Rx [Lomotil] Gabapentin [Neurontin] 600 mg PO BID #6 tab 12/16/20 03/19/21 Rx HYDROcodone/APAP 5-325MG [[place] 1 tab PO Q6HR PRN 3 Days #12 tab 12/16/20 03/19/21 Rx 5-325] QUEtiapine [SEROquel] 100 mg PO BID@0800,2000 tab 12/16/20 03/19/21 Rx Allergies Allergy/AdvReac Type Severity Reaction Status Date / Time No Known Allergies Allergy Verified 03/19/21 08:44 Surgical - Exam Vital Signs Temp Pulse Resp BP Pulse Ox 97.4 F L 85 16 144/75 93 L 03/19/21 08:47 03/19/21 08:47 03/19/21 08:47 03/19/21 08:47 03/19/21 08:47 - General well developed, well nourished, no distress - Eyes PERRL - ENT normal pinna - Neck no masses - Respiratory normal expansion - Cardiovascular Rhythm: regular - Abdomen Abdomen: soft, non tender Assessment and Plan Assessment: Dysphagia. We'll perform EGD.
--- NOTE | 2021-03-19 09:52 | P.OP ---
Date of Procedure: 03/19/21 Preoperative Diagnosis: Dysphagia Postoperative Diagnosis: Paraesophageal hernia Procedure(s) Performed: EGD Anesthesia: MAC Surgeon: Robert Uribe Pathology: other (Antrum, esophagus) Condition: stable Disposition: PACU Description of Procedure: The patient's placed on the endoscopy table in the lateral position. He received IV sedation. The gastroscope was oropharynx passed in the esophagus and stomach. Scope was then placed through the pylorus. The first and second portion of the duodenum. Normal. Scope summer back and the antrum this is mildly inflamed. A biopsies performed. The scope was then retroflexed and the remainder of the stomach appeared normal. Patient had a moderate size paraesophageal hernia. The GE junction was at 38 cm the distal esophagus appeared minimally inflamed. A biopsies performed. The proximal esophagus appeared normal. Scope was withdrawn for patient.
[2021-03-19 10:29] VITALS: BP 123/63; PULSE 76; RESP 18
== END ==
LOC: ORWHC2ENDO 08:04
PROVIDERS: ATTEND Surgery
DX: K29.50 Unspecified chronic gastritis without bleeding (principal); K44.9 Diaphragmatic hernia without obstruction or gangrene; R13.10 Dysphagia, unspecified; I25.10 Atherosclerotic heart disease of native coronary artery without angina pectoris; I10 Essential (primary) hypertension; E78.5 Hyperlipidemia, unspecified; K21.9 Gastro-esophageal reflux disease without esophagitis; M19.90 Unspecified osteoarthritis, unspecified site; Z85.46 Personal history of malignant neoplasm of prostate; Z85.038 Personal history of other malignant neoplasm of large intestine; R55 Syncope and collapse; Z85.89 Personal history of malignant neoplasm of other organs and systems; G89.29 Other chronic pain; M54.9 Dorsalgia, unspecified; Z85.828 Personal history of other malignant neoplasm of skin; K57.90 Diverticulosis of intestine, part unspecified, without perforation or abscess without bleeding; Z90.49 Acquired absence of other specified parts of digestive tract; Z95.1 Presence of aortocoronary bypass graft; Z98.890 Other specified postprocedural states; Z92.3 Personal history of irradiation; Z79.82 Long term (current) use of aspirin; Z79.899 Other long term (current) drug therapy
CPT/HCPCS: 88305; 43239; J2001; J2704

== ENCOUNTER 2021-03-26 17:52 | Inpatient (IN) | payer MEDICARE, BC ==
[2021-03-26] MEDS ORDERED: SODIUM CHLORIDE 0.9% 1,000 ML IV STA (18:43)
--- NOTE | 2021-03-26 18:49 | ED ---
General Adult HPI - General Chief complaint: Syncope Stated complaint: syncope Time Seen by Provider: 03/26/21 18:27 Source: patient, RN notes reviewed Mode of arrival: ambulatory Limitations: no limitations - History of Present Illness Initial comments: Patient is a pleasant 80-year-old male presenting to the emergency department following a syncopal episode. Episode occurred prior to arrival. Patient was resting in his chair and was walking to his garage when he passed out. No injury. Patient does have history of similar episodes several times previously. No chest pain or dyspnea. No weakness. No confusion. No headache. No abdominal pain. - Related Data Home Medications Medication Instructions Recorded Confirmed Aspirin EC [Ecotrin Low Dose] 81 mg PO HS 07/29/16 03/19/21 Folic Acid 1 mg PO HS 07/29/16 03/19/21 Simvastatin [Zocor] 20 mg PO HS@199904/21/19 03/19/21 DULoxetine HCL [Cymbalta] 60 mg PO BID 04/04/20 03/19/21 Fluticasone Nasal [place] [Flonase 2 spr EA NOSTRIL DAILY 04/04/20 03/19/21 Nasal [place]] Multivitamins, Thera [Multivitamin 1 tab PO HS 10/30/20 03/19/21 (formulary)] Acetaminophen Tab [Tylenol] 650 mg PO Q6H 12/15/20 03/19/21 Lansoprazole [Prevacid] 15 mg PO DAILY 12/15/20 03/19/21 Loratadine [Claritin] 10 mg PO HS@199912/15/20 03/19/21 Previous Rx's Medication Instructions Recorded Dicyclomine [Bentyl] 10 mg PO QID #1 capsule 11/27/20 Diphenox-Atrop 2.5-0.025 mg 2 tab PO QID PRN #24 tab 12/16/20 [Lomotil] Gabapentin [Neurontin] 600 mg PO BID #6 tab 12/16/20 HYDROcodone/APAP 5-325MG [[place] 1 tab PO Q6HR PRN 3 Days #12 tab 12/16/20 5-325] QUEtiapine [SEROquel] 100 mg PO BID@0800,1999 tab 12/16/20 Allergies Allergy/AdvReac Type Severity Reaction Status Date / Time No Known Allergies Allergy Verified 03/19/21 08:44 Review of Systems ROS Statement: Those systems with pertinent positive or pertinent negative responses have been documented in the HPI. ROS Other: All systems not noted in ROS Statement are negative. Constitutional: Denies: fever Eyes: Denies: eye pain ENT: Denies: ear pain Respiratory: Denies: cough Cardiovascular: Denies: chest pain Endocrine: Denies: fatigue Gastrointestinal: Denies: abdominal pain Genitourinary: Denies: dysuria Musculoskeletal: Denies: back pain Skin: Denies: rash Neurological: Denies: headache, weakness, confusion Past Medical History Past Medical History: Coronary Artery Disease (CAD), Cancer, CVA/TIA, GERD/Reflux, Hyperlipidemia, Hypertension, Osteoarthritis (OA), Prostate Disorder, Syncope Additional Past Medical History / Comment(s): HX OF PROSTATE AND COLON CANCER, SKIN CANCER ON NOSE AND RIGHT EAR, BACK PAIN, chronic diarrhea (8 months) History of sigmoid diverticulosis, ileus, carcinoid syndrome, DIFFICULTY SWALLOWING History of Any Multi-Drug Resistant Organisms: None Reported Past Surgical History: Bowel Resection, Cholecystectomy, Coronary Bypass/CABG, Heart Catheterization, Hernia Repair, Prostate Surgery Additional Past Surgical History / Comment(s): X2 PENILE IMPLANT, RADIOACTIVE SEEDS FOR PROSTATE CANCER, FUNDOPLICATION & REVISION, EGD, LASIK EYE SURG, VASECTOMY. , STATES BILATERAL INGUINAL HERNIA REPAIR. bowel resect Past Anesthesia/Blood Transfusion Reactions: No Reported Reaction Past Psychological History: No Psychological Hx Reported Smoking Status: Never smoker Past Alcohol Use History: None Reported Past Drug Use History: None Reported - Past Family History Mother Family Medical History: No Reported History General Exam Limitations: no limitations General appearance: alert, in no apparent distress Head exam: Present: atraumatic, normocephalic Eye exam: Present: normal appearance, PERRL, EOMI. Absent: nystagmus ENT exam: Present: normal oropharynx Neck exam: Present: normal inspection. Absent: tenderness Respiratory exam: Present: normal lung sounds bilaterally Cardiovascular Exam: Present: regular rate, normal rhythm GI/Abdominal exam: Present: soft. Absent: tenderness Extremities exam: Present: normal inspection, full ROM Neurological exam: Present: alert, oriented X3, CN II-XII intact. Absent: motor sensory deficit Expanded Neurological exam: Present: protecting the airway Speech: Present: fluid speech Cranial nerves: EOM's Intact: Normal Motor strength exam: RUE: 5, LUE: 5, RLE: 5, LLE: 5 Eye Response: (4) open spontaneously Motor Response: (6) obeys commands Verbal Response: (5) oriented Psychiatric exam: Present: normal affect, normal mood Skin exam: Present: normal color Course Vital Signs 03/26/21 17:54 Temperature 98.2 F Pulse Rate 92 Respiratory 20 Rate Blood Pressure 136/77 O2 Sat by Pulse 100 Oximetry EKG Findings - EKG Comments: EKG Findings:: Normal sinus rhythm with a rate of 79. MD 180. QRS 82. QT 36. QTc 442. Normal axis. No QRS. T wave inversion V1 through V3. Previous EKGs have been reviewed. Similar findings on 10/30/20. Medical Decision Making - Medical Decision Making Patient reevaluated and resting comfortably in bed. Patient updated on results and plan. Case was discussed with Dr. Saez, who will admit covering for Dr. Tidwell. He does request cardiology consult. - Lab Data Result diagrams: 03/26/21 19:08 03/26/21 19:08 Lab Results 03/26/21 03/26/21 03/26/21 Range/Units 19:08 19:08 19:08 WBC 4.7 (3.8-10.6) k/uL RBC 3.25 L (4.30-5.90) m/uL Hgb 10.4 L (13.0-17.5) gm/dL Hct 30.0 L (39.0-53.0) % MCV 92.2 (80.0-100.0) fL MCH 31.9 (25.0-35.0) pg MCHC 34.6 (31.0-37.0) g/dL RDW 11.9 (11.5-15.5) % Plt Count 88 L (150-450) k/uL MPV 7.4 Neutrophils % 59 % Lymphocytes % 25 % Monocytes % 3 % Eosinophils % 10 % Basophils % 1 % Neutrophils # 2.8 (1.3-7.7) k/uL Lymphocytes # 1.2 (1.0-4.8) k/uL Monocytes # 0.2 (0-1.0) k/uL Eosinophils # 0.5 (0-0.7) k/uL Basophils # 0.0 (0-0.2) k/uL Sodium 137 (137-145) mmol/L Potassium 5.5 H (3.5-5.1) mmol/L Chloride 105 (98-107) mmol/L Carbon Dioxide 22 (22-30) mmol/L Anion Gap 10 mmol/L BUN 19 (9-20) mg/dL Creatinine 1.69 H (0.66-1.25) mg/dL Est GFR (CKD-EPI)AfAm 43 (>60 ml/min/1.73 sqM) Est GFR (CKD-EPI)NonAf 37 (>60 ml/min/1.73 sqM) Glucose 111 H (74-99) mg/dL Calcium 9.7 (8.4-10.2) mg/dL Magnesium 1.9 (1.6-2.3) mg/dL Total Bilirubin 0.6 (0.2-1.3) mg/dL AST 52 (17-59) U/L ALT 24 (4-49) U/L Alkaline Phosphatase 96 (38-126) U/L Troponin I (0.000-0.034) ng/mL Total Protein 7.4 (6.3-8.2) g/dL Albumin 4.4 (3.5-5.0) g/dL Urine Color Yellow Urine Appearance Clear (Clear) Urine pH 8.0 (5.0-8.0) Ur Specific [place] 1.012 (1.001-1.035) Urine Protein Negative (Negative) Urine Glucose (UA) Negative (Negative) Urine Ketones Negative (Negative) Urine Blood Negative (Negative) Urine Nitrite Negative (Negative) Urine Bilirubin Negative (Negative) Urine Urobilinogen <2.0 (<2.0) mg/dL Ur Leukocyte Esterase Negative (Negative) 03/26/21 Range/Units 19:08 WBC (3.8-10.6) k/uL RBC (4.30-5.90) m/uL Hgb (13.0-17.5) gm/dL Hct (39.0-53.0) % MCV (80.0-100.0) fL MCH (25.0-35.0) pg MCHC (31.0-37.0) g/dL RDW (11.5-15.5) % Plt Count (150-450) k/uL MPV Neutrophils % % Lymphocytes % % Monocytes % % Eosinophils % % Basophils % % Neutrophils # (1.3-7.7) k/uL Lymphocytes # (1.0-4.8) k/uL Monocytes # (0-1.0) k/uL Eosinophils # (0-0.7) k/uL Basophils # (0-0.2) k/uL Sodium (137-145) mmol/L Potassium (3.5-5.1) mmol/L Chloride (98-107) mmol/L Carbon Dioxide (22-30) mmol/L Anion Gap mmol/L BUN (9-20) mg/dL Creatinine (0.66-1.25) mg/dL Est GFR (CKD-EPI)AfAm (>60 ml/min/1.73 sqM) Est GFR (CKD-EPI)NonAf (>60 ml/min/1.73 sqM) Glucose (74-99) mg/dL Calcium (8.4-10.2) mg/dL Magnesium (1.6-2.3) mg/dL Total Bilirubin (0.2-1.3) mg/dL AST (17-59) U/L ALT (4-49) U/L Alkaline Phosphatase (38-126) U/L Troponin I <0.012 (0.000-0.034) ng/mL Total Protein (6.3-8.2) g/dL Albumin (3.5-5.0) g/dL Urine Color Urine Appearance (Clear) Urine pH (5.0-8.0) Ur Specific [place] (1.001-1.035) Urine Protein (Negative) Urine Glucose (UA) (Negative) Urine Ketones (Negative) Urine Blood (Negative) Urine Nitrite (Negative) Urine Bilirubin (Negative) Urine Urobilinogen (<2.0) mg/dL Ur Leukocyte Esterase (Negative) - Radiology Data Radiology results: image reviewed (Chest x-ray reveals no acute process) Disposition Clinical Impression: Syncope, Thrombocytopenia Disposition: ADMITTED IP TO THIS [facility] Is patient prescribed a controlled substance at d/c from ED?: No Referrals: Gail Tidwell DO [Primary Care Provider] - 1-2 days Decision Time: 20:36
[2021-03-26 19:27] LABS: Basophils % (A) 1 %; Eosinophils # (A) 0.5 k/uL (0-0.7); Eosinophils % (A) 10 %; HGB 10.4 gm/dL (13.0-17.5); Lymphocytes # (A) 1.2 k/uL (1.0-4.8); Lymphocytes % (A) 25 %; MCH 31.9 pg (25.0-35.0); MCHC 34.6 g/dL (31.0-37.0); MCV 92.2 fL (80.0-100.0); Mean Platelet Volume 7.4; Monocytes # (A) 0.2 k/uL (0-1.0); Monocytes % (A) 3 %; Neutrophils # (A) 2.8 k/uL (1.3-7.7); Neutrophils % (A) 59 %; RBC 3.25 m/uL (4.30-5.90); RDW 11.9 % (11.5-15.5); WBC 4.7 k/uL (3.8-10.6)
[2021-03-26 19:30] LABS: Platelet Count 88 k/uL (150-450)
[2021-03-26 19:39] LABS: Albumin 4.4 g/dL (3.5-5.0); Calcium 9.7 mg/dL (8.4-10.2); Magnesium 1.9 mg/dL (1.6-2.3); Total Bilirubin 0.6 mg/dL (0.2-1.3); Total Protein 7.4 g/dL (6.3-8.2)
[2021-03-26 19:47] LABS: Potassium 5.5 mmol/L (3.5-5.1)
[2021-03-26 19:51] LABS: Appearance,Urine Clear (Clear); Bilirubin,Urine Negative (Negative); Blood,Urine Negative (Negative); Color,Urine Yellow; Glucose,Urine (UA) Negative (Negative); Ketones,Urine Negative (Negative); Leukocyte Esterase,Urine Negative (Negative); Nitrite,Urine Negative (Negative); Protein,Urine Negative (Negative); Specific Gravity,Urine 1.012 (1.001-1.035); Urobilinogen,Urine <2.0 mg/dL (<2.0)
--- NOTE | 2021-03-26 20:25 | XR ---
EXAMINATION TYPE: XR chest 2V DATE OF EXAM: 03/26/2021 COMPARISON: 12/15/2020 HISTORY: Syncope TECHNIQUE: FINDINGS: There is no heart failure nor confluent pneumonic infiltrate there is sternal wires. There are chest leads. There are no hilar masses. Costophrenic angles are clear. IMPRESSION: No active cardiopulmonary disease. No change.
[2021-03-26] MEDS ORDERED: NALOXONE 0.4 MG/ML 1 ML VIAL IV PRN (20:36)
[2021-03-26] MEDS: SODIUM CHLORIDE 0.9% 1,000 ML IV SCH (21:24)
[2021-03-26] MEDS ORDERED: MELATONIN 3 MG TABLET PO SCH (22:45)
[2021-03-26] MEDS ORDERED: LORATADINE 10 MG TAB PO PRN (22:48)
[2021-03-26] MEDS: GABAPENTIN 300 MG CAP PO SCH (23:24)
[2021-03-26] MEDS: QUEtiapine 100 MG TAB PO SCH (23:24)
[2021-03-26 23:36] LABS: INR 1.1 (<1.2); Prothrombin Time 11.3 sec (9.0-12.0)
[2021-03-27 02:54] LABS: Basophils # (A) 0.1 k/uL (0-0.2); Basophils % (A) 1 %; Eosinophils # (A) 0.8 k/uL (0-0.7); Eosinophils % (A) 12 %; HCT 28.3 % (39.0-53.0); HGB 9.7 gm/dL (13.0-17.5); Lymphocytes # (A) 1.7 k/uL (1.0-4.8); Lymphocytes % (A) 24 %; MCH 31.6 pg (25.0-35.0); MCHC 34.3 g/dL (31.0-37.0); MCV 92.2 fL (80.0-100.0); Mean Platelet Volume 6.5; Monocytes # (A) 0.3 k/uL (0-1.0); Monocytes % (A) 4 %; Neutrophils # (A) 4.1 k/uL (1.3-7.7); Neutrophils % (A) 57 %; RBC 3.07 m/uL (4.30-5.90); RDW 12.5 % (11.5-15.5); WBC 7.2 k/uL (3.8-10.6)
[2021-03-27 02:57] LABS: Platelet Count 226 k/uL (150-450)
[2021-03-27] MEDS ORDERED: PANTOPRAZOLE 40 MG TABLET PO SCH (07:30)
[2021-03-27] MEDS ORDERED: PANTOPRAZOLE 40 MG/10 ML VIAL IV SCH (09:00)
[2021-03-27] MEDS: DULoxetine HCL 60 MG CAPSULE.DR PO SCH ×2 (09:58→20:12)
[2021-03-27] MEDS: POTASSIUM CHLORIDE ER 10 MEQ TAB.ER.PRT PO SCH (09:58)
[2021-03-27] MEDS: ATORVASTATIN 10 MG TAB PO SCH (09:58)
[2021-03-27] MEDS: QUEtiapine 100 MG TAB PO SCH ×2 (09:58→20:12)
[2021-03-27] MEDS: ASPIRIN 81 MG PO SCH (09:58)
[2021-03-27] MEDS: GABAPENTIN 300 MG CAP PO SCH ×2 (09:58→20:12)
--- NOTE | 2021-03-27 10:47 | CONS ---
CONSULTATION Mr. Bajwa is an 80-year-old male status post coronary artery bypass grafting who is followed by Dr. Gould and presented with syncopal episode. He was sitting, got up to go to his garage, when he had a syncopal episode. He had similar symptoms in the past. He had no reported tonic-clonic activity. No loss of bladder control. He had no focal weakness. He did not feel any palpitation or any chest discomfort. Otherwise, he is active physically without any limitation. He had similar symptoms in the past but no documented arrhythmia. He was found to have orthostatic hypotension in the hospital. The patient is active physically. Denies any exertional chest pain. Denies any palpitation. Denies any dyspnea. No PND. No orthopnea. No peripheral edema. MEDICATION: His medications at home included: Drisdol, Sandostatin, simvastatin 20 mg daily, Seroquel, omeprazole, Neurontin, Lomotil, Cymbalta, and aspirin. REVIEW OF SYSTEMS: Respiratory system: He has no recent wheezing. No cough. No documented obstructive lung disease. GI system: No recent GI bleeding. No peptic ulcer disease. system: No dysuria or hematuria. Nervous system: No stroke or seizure. Past cardiac history is remarkable for the coronary artery bypass grafting that was performed in 2004. At that time, received a AYN to LAD, saphenous vein graft to the obtuse marginal branch and to the right coronary artery. He had an echocardiogram in 2014 that revealed a preserved left ventricular size and systolic function with no significant valve disease and his stress test in 2018 revealed no evidence of inducible ischemia. PHYSICAL EXAMINATION: He is an 80-year-old male, alert, oriented, in no apparent distress. Blood pressure 105/70 with a heart rate in the 80s. His had orthostatic changes earlier. Heart rate in the 80s. HEAD: Normocephalic. Eyes sclerae anicteric. NECK: Good carotid upstroke. No bruit. No jugular venous distention. LUNGS: Clear to auscultation. HEART: Regular rate and rhythm S1, S2. No S3 with systolic murmur, ejection type. No diastolic murmur. No rub. ABDOMEN: Soft, nontender. Positive bowel sounds. No organomegaly. EXTREMITIES: No edema. Intact distal pulses. LAB DATA: Lab data revealed troponin less than 0.012. Hemoglobin of 9.7, platelet count of 226, yesterday was reported 88. BUN and creatinine of 19, 1.69. The patient had prior abnormal renal functions. His EKG revealed a sinus mechanism, normal axis and intervals, nonspecific T-wave inversion anteriorly, cannot exclude anterior wall ischemia. His chest x-ray shows no acute infiltrate. Reviewing his old EKG, similar findings were noted in the past, not as pronounced but there was nonspecific anterior wall T-wave changes. He had an echocardiogram in November of this year that showed a preserved left ventricular size and systolic function with mild tricuspid regurgitation. IMPRESSION: 1. Syncopal episode, appears to be orthostatic hypotension. No evidence to suggest malignant arrhythmia. No evidence of acute coronary syndrome. 2. History of colon cancer status post bowel resection. 3. History of hyperlipidemia. 4. Abnormal renal function, could be related to dehydration. The patient has a history of chronic diarrhea. RECOMMENDATION: From the cardiac standpoint I do not see any evidence of acute coronary syndrome or malignant arrhythmia. I do not recommend any further cardiac workup at this time. I have discussed with him the importance of avoiding dehydration and change in position gradually. The patient may benefit from a pressure stocking. He will be hydrated and if he persists in having symptoms as an outpatient then midodrine can be added to his regimen. Thank you for this consult. We will follow with you. MONICA / THIAGO: [id number] /
--- NOTE | 2021-03-27 22:34 | P.CONS ---
History of Present Illness - Reason for Consult Consult date: 03/27/21 Thrombocytopenia and carcinomid Requesting physician: Brennan Thomas - History of Present Illness Reinier is well known to us for treatment of his known carcinoid, he received monthly sandostatin and follows Dr. Bear in office. He was admitted for complaints of dizziness and syncopal episodes. 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 Past Anesthesia/Blood Transfusion Reactions: No Reported Reaction Smoking Status: Former smoker, Light tobacco smoker - Past Family History Father Additional Family Medical History / Comment(s): Pt did not know his father but they were told he of a OR at the age of 42 yrs. Mother Family Medical History: Vascular Disorder Additional Family Medical History / Comment(s): Mother at age 68yrs, pt was told possible d/t ruptured aneurysm in her neck. Medications and Allergies Home Medications Medication Instructions Recorded Confirmed Type Aspirin EC [Ecotrin Low Dose] 81 mg PO DAILY 07/29/16 03/26/21 History Simvastatin [Zocor] 20 mg PO DAILY 04/21/19 03/26/21 History DULoxetine HCL [Cymbalta] 60 mg PO BID 04/04/20 03/26/21 History Fluticasone Nasal [place] [Flonase 2 spr EA NOSTRIL DAILY PRN 04/04/20 03/26/21 History Nasal [place]] Multivitamins, Thera [Multivitamin 1 tab PO DAILY 10/30/20 03/26/21 History (formulary)] Acetaminophen Tab [Tylenol] 650 mg PO Q6H PRN 12/15/20 03/26/21 History Loratadine [Claritin] 10 mg PO DAILY PRN 12/15/20 03/26/21 History Diphenox-Atrop 2.5-0.025 mg 2 tab PO QID PRN #24 tab 12/16/20 03/26/21 Rx [Lomotil] Gabapentin [Neurontin] 600 mg PO BID #6 tab 12/16/20 03/26/21 Rx Ergocalciferol (Vitamin D2) 1,250 mcg PO Q7D 03/26/21 03/26/21 History [Drisdol (50,000 Iu)] Melatonin Gummy ([place] Strength) 1 cap PO HS PRN 03/26/21 03/26/21 History Octreotide Acetate,Mi-Spheres 10 mg IM Q21D 03/26/21 03/26/21 History [SandoSTATIN [place]] Octreotide Acetate,Mi-Spheres 30 mg IM Q21D 03/26/21 03/26/21 History [SandoSTATIN [place]] Omeprazole 40 mg PO DAILY 03/26/21 03/26/21 History Potassium Chloride ER [K-Dur 10] 10 meq PO DAILY 03/26/21 03/26/21 History QUEtiapine XR [SEROquel XR] 200 mg PO HS 03/26/21 03/26/21 History Allergies Allergy/AdvReac Type Severity Reaction Status Date / Time No Known Allergies Allergy Verified 03/26/21 21:03 Physical Exam Vitals: Vital Signs Temp Pulse Pulse Resp BP BP Pulse Ox 03/27/21 20:00 97.9 F 83 18 136/77 95 03/27/21 19:21 16 03/27/21 14:30 97.7 F 78 16 119/70 97 03/27/21 14:15 98.2 F 87 18 105/70 97 03/27/21 09:57 87 18 105/70 97 03/27/21 08:55 81 16 118/73 98 03/27/21 06:00 80 16 108/70 95 03/26/21 23:00 76 18 162/93 100 Intake and Output 03/27/21 03/27/21 03/27/21 06:59 14:59 22:59 Intake Total 800 Output Total 400 Balance 400 Intake: IV 800 Sodium Chloride 0.9% 1, 800 000 ml @ 100 mls/hr IV . Q10H MYLA Rx#:[id number] Output: Urine 400 Other: Voiding Method Urinal Urinal # Voids 1 # Bowel Movements 1 Weight 68.039 kg - Constitutional General appearance: average body habitus, cooperative, no acute distress - EENT Eyes: EOMI ENT: NA/AT, normal oropharynx - Neck Neck: normal ROM - Respiratory Respiratory: bilateral: CTA - Cardiovascular Rhythm: regular - Gastrointestinal General gastrointestinal: soft, tenderness - Integumentary Integumentary: pale - Neurologic Neurologic: CNII-XII intact - Musculoskeletal Musculoskeletal: generalized weakness, strength equal bilaterally - Psychiatric Psychiatric: A&O x's 3, appropriate affect Results CBC & Chem 7: 03/27/21 02:19 03/26/21 19:08 Labs: Abnormal Lab Results - Last 24 Hours (Table) 03/27/21 Range/Units 02:19 RBC 3.07 L (4.30-5.90) m/uL Hgb 9.7 L (13.0-17.5) gm/dL Hct 28.3 L (39.0-53.0) % Eosinophils # 0.8 H (0-0.7) k/uL Assessment and Plan (1) Carcinoid tumor Current Visit: Yes Status: Acute Code(s): D3A.00 - BENIGN CARCINOID TUMOR OF UNSPECIFIED SITE SNOMED Code(s): 343712623 (2) Syncope Current Visit: Yes Status: Acute Code(s): R55 - SYNCOPE AND COLLAPSE SNOMED Code(s): 362601259 (3) Thrombocytopenia Current Visit: Yes Status: Acute Code(s): D69.6 - THROMBOCYTOPENIA, UNSPECIFIED SNOMED Code(s): 630535427 Plan: Platelets are recovered Continue to monitor Patient may follow-up in office regarding sandostatin. Will check Chromogranin
--- NOTE | 2021-03-27 23:19 | P.HPIM ---
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 He states he stood up to go to his garage when he passed out. He denies any chest pain, shrtness of breath diaphoresis or palptiations. He denies any previous history of similar events. On presentation vitals stable, labs unremarkable, trop negative. EKG NSR. Review of Systems All systems: negative Constitutional: Denies chills, Denies fever Eyes: denies blurred vision, denies pain Ears, nose, mouth and throat: Denies headache, Denies sore throat Cardiovascular: Denies chest pain, Denies shortness of breath Respiratory: Denies cough Gastrointestinal: Denies abdominal pain, Denies diarrhea, Denies nausea, Denies vomiting Musculoskeletal: Denies myalgias Integumentary: Denies pruritus, Denies rash Neurological: Reports syncope, Denies numbness, Denies weakness Psychiatric: Denies anxiety, Denies depression Endocrine: Denies fatigue, Denies weight change Past Medical History Past Medical History: Coronary Artery Disease (CAD), Cancer, GERD/Reflux, Hy perlipidemia, Hypertension, Osteoarthritis (OA), Prostate Disorder, Syncope Additional Past Medical History / Comment(s): Syncope with FALLS, prostate cancer with radiated seed placed, colon cancer with small bowel resection/chronic diarrhea which has improved with medication, partial small bowel obstructions with conservative treatment/laparotomy with lysis of adhesions, ileus, 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 Past Anesthesia/Blood Transfusion Reactions: No Reported Reaction Smoking Status: Former smoker, Light tobacco smoker - Past Family History Father Additional Family Medical History / Comment(s): Pt did not know his father but they were told he of a CA at the age of 42 yrs. Mother Family Medical History: Vascular Disorder Additional Family Medical History / Comment(s): Mother at age 68yrs, pt was told possible d/t ruptured aneurysm in her neck. Medications and Allergies Home Medications Medication Instructions Recorded Confirmed Type Aspirin EC [Ecotrin Low Dose] 81 mg PO DAILY 07/29/16 03/26/21 History Simvastatin [Zocor] 20 mg PO DAILY 04/21/19 03/26/21 History DULoxetine HCL [Cymbalta] 60 mg PO BID 04/04/20 03/26/21 History Fluticasone Nasal [place] [Flonase 2 spr EA NOSTRIL DAILY PRN 04/04/20 03/26/21 History Nasal [place]] Multivitamins, Thera [Multivitamin 1 tab PO DAILY 10/30/20 03/26/21 History (formulary)] Acetaminophen Tab [Tylenol] 650 mg PO Q6H PRN 12/15/20 03/26/21 History Loratadine [Claritin] 10 mg PO DAILY PRN 12/15/20 03/26/21 History Diphenox-Atrop 2.5-0.025 mg 2 tab PO QID PRN #24 tab 12/16/20 03/26/21 Rx [Lomotil] Gabapentin [Neurontin] 600 mg PO BID #6 tab 12/16/20 03/26/21 Rx Ergocalciferol (Vitamin D2) 1,250 mcg PO Q7D 03/26/21 03/26/21 History [Drisdol (50,000 Iu)] Melatonin Gummy (Uk Strength) 1 cap PO HS PRN 03/26/21 03/26/21 History Octreotide Acetate,Mi-Spheres 10 mg IM Q21D 03/26/21 03/26/21 History [SandoSTATIN LAR [place]] Octreotide Acetate,Mi-Spheres 30 mg IM Q21D 03/26/21 03/26/21 History [SandoSTATIN LAR [place]] Omeprazole 40 mg PO DAILY 03/26/21 03/26/21 History Potassium Chloride ER [K-Dur 10] 10 meq PO DAILY 03/26/21 03/26/21 History QUEtiapine XR [SEROquel XR] 200 mg PO HS 03/26/21 03/26/21 History Allergies Allergy/AdvReac Type Severity Reaction Status Date / Time No Known Allergies Allergy Verified 03/26/21 21:03 Physical Exam Vitals: Vital Signs Temp Pulse Pulse Resp BP BP Pulse Ox 03/27/21 20:00 97.9 F 83 18 136/77 95 03/27/21 19:21 16 03/27/21 14:30 97.7 F 78 16 119/70 97 03/27/21 14:15 98.2 F 87 18 105/70 97 03/27/21 09:57 87 18 105/70 97 03/27/21 08:55 81 16 118/73 98 03/27/21 06:00 80 16 108/70 95 Intake and Output 03/27/21 03/27/21 03/28/21 14:59 22:59 06:59 Intake Total 800 Output Total 400 Balance 400 Intake: IV 800 Sodium Chloride 0.9% 1, 800 000 ml @ 100 mls/hr IV . Q10H MYLA Rx#:[id number] Output: Urine 400 Other: Voiding Method Urinal Urinal # Voids 1 # Bowel Movements 1 Weight 68.039 kg General: well nourished, well developed, NAD. Vitals reviewed Eyes: PERRL, EOMI, conjunctiva normal HENT: normocephalic, mucus membranes moist Neck: supple, no JVD Lungs: normal respiratory effort, no wheezes or rales CV: Regular rate and rhythm, no murmur. Peripheral pulses 2+ Abdomen: soft, nondistended, no organomegaly Lymph: no cervical or axillary LAD Skin: warm and dry. Neuro: A&Ox3, normal mood and affect Results CBC & Chem 7: 03/27/21 02:19 03/26/21 19:08 Labs: Abnormal Lab Results - Last 24 Hours (Table) 03/27/21 Range/Units 02:19 RBC 3.07 L (4.30-5.90) m/uL Hgb 9.7 L (13.0-17.5) gm/dL Hct 28.3 L (39.0-53.0) % Eosinophils # 0.8 H (0-0.7) k/uL Thrombosis Risk Factor Assmnt - Choose All That Apply Any of the Below Risk Factors Present?: Yes Each Risk Factor Represents 2 Points: Malignancy Each Risk Factor Represents 3 Points: Age 75 years or older Other congenital or acquired thrombophilia - If yes, enter type in comment: No Thrombosis Risk Factor Assessment Total Risk Factor Score: 5 Thrombosis Risk Factor Assessment Level: High Risk Assessment and Plan Plan: 1. Syncope and collapse. Consult to cardiology and oncology. Continue ASA and IVF 2. GERD. Continue protonix 3. Major dperession. Continue seroquel qhs
[2021-03-27] MEDS: SODIUM CHLORIDE 0.9% 1,000 ML IV SCH (23:28)
[2021-03-28 06:59] LABS: African American GFR (CKD) 59 (>60 ml/min/1.73 sqM); Anion Gap 6 mmol/L; Blood Urea Nitrogen 20 mg/dL (9-20); Calcium 8.7 mg/dL (8.4-10.2); Carbon Dioxide 24 mmol/L (22-30); Chloride 108 mmol/L (98-107); Glucose 106 mg/dL (74-99); Non-African American GFR(CKD) 51 (>60 ml/min/1.73 sqM); Potassium 5.1 mmol/L (3.5-5.1); Sodium 138 mmol/L (137-145)
[2021-03-28] MEDS ORDERED: PANTOPRAZOLE 40 MG TABLET PO SCH (07:30)
[2021-03-28] MEDS: PANTOPRAZOLE 40 MG/10 ML VIAL IVP SCH (08:37)
[2021-03-28] MEDS: ASPIRIN 81 MG PO SCH (08:37)
[2021-03-28] MEDS: GABAPENTIN 300 MG CAP PO SCH ×2 (08:37→20:21)
[2021-03-28] MEDS: POTASSIUM CHLORIDE ER 10 MEQ TAB.ER.PRT PO SCH (08:37)
[2021-03-28] MEDS: ATORVASTATIN 10 MG TAB PO SCH (08:37)
[2021-03-28] MEDS: QUEtiapine 100 MG TAB PO SCH ×2 (08:38→21:01)
[2021-03-28] MEDS: DULoxetine HCL 60 MG CAPSULE.DR PO SCH ×2 (08:38→20:21)
[2021-03-28] MEDS: SODIUM CHLORIDE 0.9% 1,000 ML IV SCH ×2 (08:38→18:00)
[2021-03-28 11:56] LABS: Basophils # (A) 0.1 k/uL (0-0.2); Basophils % (A) 1 %; Eosinophils # (A) 0.7 k/uL (0-0.7); Eosinophils % (A) 14 %; HCT 29.2 % (39.0-53.0); HGB 10.1 gm/dL (13.0-17.5); Lymphocytes # (A) 1.1 k/uL (1.0-4.8); Lymphocytes % (A) 20 %; MCH 32.6 pg (25.0-35.0); MCHC 34.6 g/dL (31.0-37.0); MCV 94.2 fL (80.0-100.0); Mean Platelet Volume 7.5; Monocytes # (A) 0.3 k/uL (0-1.0); Monocytes % (A) 5 %; Neutrophils # (A) 3.2 k/uL (1.3-7.7); Neutrophils % (A) 60 %; Platelet Count 229 k/uL (150-450); RDW 12.2 % (11.5-15.5); WBC 5.4 k/uL (3.8-10.6)
[2021-03-28] MEDS ORDERED: FLUTICASONE 50MCG/SPRAY NASAL 16GM EA NOSTRIL PRN (21:16)
[2021-03-28] MEDS ORDERED: DIPHENOX-ATROP 2.5-0.025 MG 1 EACH TAB PO PRN (21:16)
[2021-03-28] MEDS ORDERED: ACETAMINOPHEN TAB 325 MG TAB PO PRN (21:16)
[2021-03-28] MEDS ORDERED: MELATONIN GUMMY PO PRN (21:16)
[2021-03-28] MEDS ORDERED: [UNRECOGNIZED DRUG - OTHER] IM SCH (21:30)
[2021-03-28] MEDS ORDERED: ERGOCALCIFEROL 1,250 MCG (50,000 IU) CAPSULE PO SCH ×2 (21:30→23:45)
[2021-03-28] MEDS ORDERED: OCTREOTIDE ACETATE IM SCH (21:30)
[2021-03-28] MEDS ORDERED: FLUDROCORTISONE 0.1 MG TAB PO SCH (21:30)
--- NOTE | 2021-03-29 03:01 | PN ---
PROGRESS NOTE DATE OF SERVICE: 03/28/2021 I am covering for Dr. Luciano. This 80-year-old gentleman who was admitted with multiple medical problems including carcinoid syndrome on somatostatin, was admitted with history of syncope and the patient also has some orthostatic hypotension. The patient was found to have at least drop of about 50 points in systolic blood pressure. The patient also has some anemia. The patient is being patient closely monitored at this time. Cardiology following the patient closely. IV fluids have been initiated. PAST MEDICAL HISTORY: Reviewed. REVIEW OF SYSTEMS: CARDIOVASCULAR No angina or palpitations. RESPIRATORY As mentioned earlier. GI As mentioned earlier. No dysuria or hematuria. NERVOUS No numbness or weakness. MEDICATIONS: Reviewed include aspirin, Lipitor, Cymbalta, Neurontin, Claritin, Narcan, Protonix, K- Dur, Seroquel. The doses reviewed. PHYSICAL EXAMINATION: Patient is alert, oriented x3. Pulse is 80, blood pressure 173/87, respirations 16, temperature 98.7, pulse ox ( ) HEENT: Conjunctivae normal. Oral mucosa moist. NECK: No jugular venous distention. No lymph node enlargement. CARDIOVASCULAR: S1, S2, muffled. No S3, no S4, RESPIRATORY: Diminished breath sounds at the bases. A few scattered rhonchi. ABDOMEN: Soft, nontender. LEGS: No edema, no swelling. NERVOUS SYSTEM: No focal deficits. LABS: WBC 5, hemoglobin 10.1, and creatinine is 1.30. ASSESSMENT: 1. Syncope and as well as orthostatic hypotension. 2. Gastroesophageal reflux disease. 3. Depression. 4. History of carcinoid syndrome. 5. Hyperkalemia. 6. Increased creatinine with chronic kidney disease stage 3. 7. Anemia, normocytic anemia of chronic disease. 8. Thrombocytopenia, improved. RECOMMENDATIONS: In this 80-year-old gentleman who presented with multiple complex medical issues, we will monitor the patient closely. I would add Florinef to the current regimen. Continue the rest of medications. Monitor blood pressure closely. The blood pressure is elevated. The patient might require additional medications. Hematology/oncology has been consulted. I would also recommend Cardiology evaluation. Further recommendations to follow. MMODL / IJN: [id number] /
[2021-03-29] MEDS: SODIUM CHLORIDE 0.9% 1,000 ML IV SCH ×3 (05:22→20:13)
[2021-03-29 07:45] LABS: African American GFR (CKD) 65 (>60 ml/min/1.73 sqM); Anion Gap 10 mmol/L; Blood Urea Nitrogen 18 mg/dL (9-20); Calcium 9.2 mg/dL (8.4-10.2); Carbon Dioxide 18 mmol/L (22-30); Chloride 109 mmol/L (98-107); Glucose 103 mg/dL (74-99); Non-African American GFR(CKD) 56 (>60 ml/min/1.73 sqM); Potassium 5.1 mmol/L (3.5-5.1); Sodium 137 mmol/L (137-145)
[2021-03-29 08:24] LABS: Basophils % (A) 1 %; Eosinophils # (A) 0.7 k/uL (0-0.7); Eosinophils % (A) 11 %; HCT 34.8 % (39.0-53.0); HGB 12.4 gm/dL (13.0-17.5); Lymphocytes # (A) 1.6 k/uL (1.0-4.8); Lymphocytes % (A) 23 %; MCH 32.9 pg (25.0-35.0); MCHC 35.6 g/dL (31.0-37.0); MCV 92.2 fL (80.0-100.0); Monocytes # (A) 0.4 k/uL (0-1.0); Monocytes % (A) 6 %; Neutrophils % (A) 58 %; Platelet Count 226 k/uL (150-450); RBC 3.77 m/uL (4.30-5.90); RDW 12.1 % (11.5-15.5); WBC 6.8 k/uL (3.8-10.6)
[2021-03-29] MEDS: QUEtiapine 100 MG TAB PO SCH ×2 (08:43→20:18)
[2021-03-29] MEDS: PANTOPRAZOLE 40 MG/10 ML VIAL IVP SCH (08:43)
[2021-03-29] MEDS: POTASSIUM CHLORIDE ER 10 MEQ TAB.ER.PRT PO SCH (08:43)
[2021-03-29] MEDS: GABAPENTIN 300 MG CAP PO SCH ×2 (08:43→20:12)
[2021-03-29] MEDS: ASPIRIN 81 MG PO SCH (08:43)
[2021-03-29] MEDS: MULTIVITAMINS, THERA 1 EACH TAB PO SCH (08:43)
[2021-03-29] MEDS: DULoxetine HCL 60 MG CAPSULE.DR PO SCH ×2 (08:43→20:12)
[2021-03-29] MEDS: ATORVASTATIN 10 MG TAB PO SCH (08:43)
--- NOTE | 2021-03-29 13:12 | P.PN ---
Subjective Progress Note Date: 03/29/21 HISTORY OF PRESENT ILLNESS: This is an 80-year-old male with a history of coronary artery bypass grafting who follows with Dr. Beltrán in the outpatient setting. Patient presented to the hospital secondary to a syncopal episode. Echocardiogram completed in November 2020 revealed ejection fraction 60-65% with mild tricuspid regurgitation. Patient was found to have orthostatic hypotension. Patient was started on Florinef by internal medicine. Patient reports he continues to have some dizziness when he changes positions. PHYSICAL EXAM: VITAL SIGNS: Reviewed. GENERAL: Well-developed in no acute distress. NECK: Supple. No JVD or thyromegaly LUNGS: Respirations even and unlabored. Lungs essentially clear to auscultation bilaterally. HEART: Regular rate and rhythm. S1 and S2 heard. EXTREMITIES: Normal range of motion. No clubbing or cyanosis. Peripheral pulses intact. No lower extremity edema ASSESSMENT: Syncope Orthostatic hypotension Coronary artery disease with previous CABG Hyperlipidemia History of colon cancer with bowel resection Acute kidney injury PLAN: Continue current cardiac medications Patient started on Florinef per internal medicine Continue to monitor orthostatic blood pressures on a daily basis Place bilateral knee-high RAY hose on patient Patient encouraged to increase salt intake Further recommendations pending patient course Nurse practitioner note has been reviewed by physician. Signing provider agrees with the documented findings, assessment, and plan of care. Objective - Vital Signs Vital signs: Vital Signs Temp 97.9 F 03/29/21 07:00 Pulse 81 03/29/21 07:46 Resp 16 03/29/21 07:46 BP 80/30 03/29/21 07:00 Pulse Ox 97 03/29/21 07:00 Intake & Output 03/28/21 03/29/21 03/29/21 18:59 06:59 18:59 Output Total 400 Balance -400 Output: Urine 400 Other: Voiding Method Urinal Urinal Urinal # Voids 2 4 4 # Bowel Movements 1 1 - Labs CBC & Chem 7: 03/29/21 06:15 03/29/21 06:15 Labs: Abnormal Lab Results - Last 24 Hours (Table) 03/29/21 03/29/21 Range/Units 06:15 06:15 RBC 3.77 L (4.30-5.90) m/uL Hgb 12.4 L (13.0-17.5) gm/dL Hct 34.8 L (39.0-53.0) % Chloride 109 H (98-107) mmol/L Carbon Dioxide 18 L (22-30) mmol/L Glucose 103 H (74-99) mg/dL
--- NOTE | 2021-03-29 14:48 | PN ---
PROGRESS NOTE DATE OF SERVICE: 03/29/2021 I am covering for Dr. Luciano. INTERVAL HISTORY: This is an 80-year-old gentleman who was admitted with. Mustapha admitted with syncope and as well as orthostatic hypotension, being closely monitored. Florinef has been initiated. Cardiology following the patient closely. No chest pain. No palpitations. No fever. The blood pressure is still showing some drop in systolic blood pressure. PHYSICAL EXAMINATION: GENERAL: Alert and oriented x3. VITAL SIGNS: Pulse 81, blood pressure 112/71 dropped to 80/30, respirations 16, temperature 97.2, pulse ox 97% on room air. HEENT: Conjunctivae normal. NECK: No jugular venous distention. No carotid bruits. RESPIRATORY: Breath sounds diminished at the bases. No rhonchi, no crackles. HEART: S1 and S2, muffled. ABDOMEN: Soft, no tenderness. EXTREMITIES: No edema, no swelling. NERVOUS: No focal deficits. LAB STUDIES: WBC 6.8, hemoglobin 12.4, sodium 137, potassium 5.1. ASSESSMENT: 1. Syncope as well as orthostatic hypotension. 2. Gastroesophageal reflux disease. 3. Depression. 4. History of carcinoid syndrome. 5. Hyperkalemia. 6. Increased creatinine with chronic kidney disease stage 3. 7. Anemia, normocytic anemia of chronic disease. 8. Thrombocytopenia improved. RECOMMENDATION AND DISCUSSION: Recommend to continue current management and continue symptomatic treatment. Also recommend serum cortisol level to rule out the possibility of adrenocortical insufficiency. Continue the rest of medication. Dr. Luciano will follow tomorrow. MMODL / IJN: [id number] /
[2021-03-30 02:40] VITALS: RESP 16
[2021-03-30 07:04] VITALS: TEMP 98.3
[2021-03-30 08:23] VITALS: BP 134/85; PULSE 87
[2021-03-30] MEDS: QUEtiapine 100 MG TAB PO SCH (08:23)
[2021-03-30] MEDS: ASPIRIN 81 MG PO SCH (08:23)
[2021-03-30] MEDS: POTASSIUM CHLORIDE ER 10 MEQ TAB.ER.PRT PO SCH (08:23)
[2021-03-30] MEDS: GABAPENTIN 300 MG CAP PO SCH (08:24)
[2021-03-30] MEDS: MULTIVITAMINS, THERA 1 EACH TAB PO SCH (08:24)
[2021-03-30] MEDS: ATORVASTATIN 10 MG TAB PO SCH (08:24)
[2021-03-30] MEDS: DULoxetine HCL 60 MG CAPSULE.DR PO SCH (08:24)
[2021-03-30] MEDS ORDERED: amLODIPine 2.5 MG TAB PO SCH (09:00)
[2021-03-30] MEDS ORDERED: FLUDROCORTISONE 0.1 MG TAB PO SCH (09:00)
[2021-03-30] MEDS: SODIUM CHLORIDE 0.9% 1,000 ML IV SCH (09:46)
[2021-03-30] MEDS: PANTOPRAZOLE 40 MG/10 ML VIAL IVP SCH (09:47)
--- NOTE | 2021-03-30 10:30 | P.PN ---
Subjective Progress Note Date: 03/30/21 HISTORY OF PRESENT ILLNESS: This is an 80-year-old male with a history of coronary artery bypass grafting who follows with Dr. Beltrán in the outpatient setting. Patient presented to the hospital secondary to a syncopal episode. Echocardiogram completed in November 2020 revealed ejection fraction 60-65% with mild tricuspid regurgitation. Patient was found to have orthostatic hypotension. Patient was started on Florinef by internal medicine. Patient reports he continues to have some dizziness when he changes positions. 03/30/2021 Patient examined this morning at the bedside. Patient denies chest pain or pressure. He denies shortness of breath. He states he has been up ambulating in his room without dizziness or lightheadedness. Orthostatic blood pressures obtained this morning were unremarkable. PHYSICAL EXAM: VITAL SIGNS: Reviewed. GENERAL: Well-developed in no acute distress. NECK: Supple. No JVD or thyromegaly LUNGS: Respirations even and unlabored. Lungs diminished bilaterally. HEART: Regular rate and rhythm. S1 and S2 heard. EXTREMITIES: Normal range of motion. No clubbing or cyanosis. Peripheral pulses intact. No lower extremity edema ASSESSMENT: Syncope Orthostatic hypotension Coronary artery disease with previous CABG Hyperlipidemia History of colon cancer with bowel resection Acute kidney injury PLAN: Continue current medications Patient is stable for discharge home today from a cardiac standpoint He is to follow up outpatient with Dr. Gould We will sign off. Please reconsult if needed. Nurse practitioner note has been reviewed by physician. Signing provider agrees with the documented findings, assessment, and plan of care. Objective - Vital Signs Vital signs: Vital Signs Temp 98.3 F 03/30/21 06:45 Pulse 87 03/30/21 08:15 Resp 16 03/30/21 06:45 BP 134/85 03/30/21 08:15 Pulse Ox 96 03/30/21 06:45 Intake & Output 03/29/21 03/30/21 03/30/21 18:59 06:59 18:59 Output Total 403 Balance -403 Output: Urine 400 Stool 3 Other: Voiding Method Urinal Urinal # Voids 4 4 # Bowel Movements 1 - Labs CBC & Chem 7: 03/29/21 06:15 03/29/21 06:15
--- NOTE | 2021-03-30 13:10 | P.DS ---
Providers Date of admission: 03/30/21 08:46 Expected date of discharge: 03/30/21 Attending physician: Kenneth Luciano MD Consults: 03/26/21 20:36 Consult Physician Routine Consulting Provider: Maycol Yepez Consult Reason/Comments: Thrombocytopenia Do you want consulting provider notified?: Yes Primary care physician: Gail Tidwell Hospital Course: Final Diagnoses: Syncope with collapse Orthostatic hypotension, resolved. CAD, history of CABG Hyperlipidemia Gastroesophageal reflux disease Major depression History of Carcinoid syndrome Thrombocytopenia, improved Acute on Chronic kidney disease stage III, at baseline Anemia, of chronic disease stage III Hospital course :This is a pleasant 80-year-old gentleman admitted with syncope with collapse, orthostatic hypotension , thrombocytopenia and multiple other medical issues. Evaluated by cardiology and hematology. Received gentle IV fluid hydration with Florinef initiated. Denies chest pain, palpitations or shortness of breath. Significant clinical improvement. Patient has been cleared for discharge by all consults. Patient to follow-up with hematology/oncology outpatient regarding Sandostatin/chromogranin. Patient will be discharged home today in stable condition with guarded prognosis. The impression and plan of care has been dictated as directed. DrVirgen: I performed a history and examination of this patient, discussed the same with the dictator. I agree with the dictator's note ,documented as a scribe. Any additional findings or plans will be noted. Patient Condition at Discharge: Stable Plan - Discharge Summary Discharge Rx Participant: No New Discharge Prescriptions: New Fludrocortisone [Florinef] 0.1 mg PO HS #30 tablet Continue Aspirin EC [Ecotrin Low Dose] 81 mg PO DAILY Simvastatin [Zocor] 20 mg PO DAILY DULoxetine HCL [Cymbalta] 60 mg PO BID Fluticasone Nasal [place] [Flonase Nasal [place]] 2 spr EA NOSTRIL DAILY PRN PRN Reason: Allergy Symptoms Multivitamins, Thera [Multivitamin (formulary)] 1 tab PO DAILY Acetaminophen Tab [Tylenol] 650 mg PO Q6H PRN PRN Reason: Pain Or Fever > 100.5 Loratadine [Claritin] 10 mg PO DAILY PRN PRN Reason: Allergy Symptoms Diphenox-Atrop 2.5-0.025 mg [Lomotil] 2 tab PO QID PRN #24 tab PRN Reason: Diarrhea Gabapentin [Neurontin] 600 mg PO BID #6 tab Ergocalciferol (Vitamin D2) [Drisdol (50,000 Iu)] 1,250 mcg PO Q7D Octreotide Acetate,Mi-Spheres [SandoSTATIN [place]AR [place]] 30 mg IM Q21D Octreotide Acetate,Mi-Spheres [SandoSTATIN [place]AR [place]] 10 mg IM Q21D QUEtiapine XR [SEROquel XR] 200 mg PO HS Melatonin Gummy ([place] Strength) 1 cap PO HS PRN PRN Reason: SLEEP Potassium Chloride ER [K-Dur 10] 10 meq PO DAILY Omeprazole 40 mg PO DAILY Discharge Medication List Aspirin EC [Ecotrin Low Dose] 81 mg PO DAILY 07/29/16 [History] Simvastatin [Zocor] 20 mg PO DAILY 04/21/19 [History] DULoxetine HCL [Cymbalta] 60 mg PO BID 04/04/20 [History] Fluticasone Nasal [place] [Flonase Nasal [place]] 2 spr EA NOSTRIL DAILY PRN 04/04/20 [History] Multivitamins, Thera [Multivitamin (formulary)] 1 tab PO DAILY 10/30/20 [History] Acetaminophen Tab [Tylenol] 650 mg PO Q6H PRN 12/15/20 [History] Loratadine [Claritin] 10 mg PO DAILY PRN 12/15/20 [History] Diphenox-Atrop 2.5-0.025 mg [Lomotil] 2 tab PO QID PRN #24 tab 12/16/20 [Rx] Gabapentin [Neurontin] 600 mg PO BID #6 tab 12/16/20 [Rx] Ergocalciferol (Vitamin D2) [Drisdol (50,000 Iu)] 1,250 mcg PO Q7D 03/26/21 [History] Melatonin Gummy (Uk Strength) 1 cap PO HS PRN 03/26/21 [History] Octreotide Acetate,Mi-Spheres [SandoSTATIN [place]AR [place]] 10 mg IM Q21D 03/26/21 [History] Octreotide Acetate,Mi-Spheres [SandoSTATIN [place]AR [place]] 30 mg IM Q21D 03/26/21 [History] Omeprazole 40 mg PO DAILY 03/26/21 [History] Potassium Chloride ER [K-Dur 10] 10 meq PO DAILY 03/26/21 [History] QUEtiapine XR [SEROquel XR] 200 mg PO HS 03/26/21 [History] Fludrocortisone [Florinef] 0.1 mg PO HS #30 tablet 03/30/21 [Rx] Follow up Appointment(s)/Referral(s): Maycol Yepez MD [STAFF PHYSICIAN] - 1 Week Kenneth Luciano MD [STAFF PHYSICIAN] - 3 Days Maximus Gould MD [STAFF PHYSICIAN] - 1 Week
[2021-04-09] MEDS ORDERED: OCTREOTIDE LAR 20 MG IM SCH (09:00)
== END 2021-03-30 13:40 | disposition home or self-care (01) | DRG 312 ==
LOC: EC 17:52 → 6NMEDSUR 20:37 → OBSVTOIN 03-30 08:46
PROVIDERS: ADMIT Family Medicine; ATTEND Family Medicine
DX: I95.1 Orthostatic hypotension (principal); N17.9 Acute kidney failure, unspecified; E34.0 Carcinoid syndrome; Z79.82 Long term (current) use of aspirin; I25.10 Atherosclerotic heart disease of native coronary artery without angina pectoris; E78.5 Hyperlipidemia, unspecified; Z86.73 Personal history of transient ischemic attack (TIA), and cerebral infarction without residual deficits; K21.9 Gastro-esophageal reflux disease without esophagitis; Z85.46 Personal history of malignant neoplasm of prostate; Z85.038 Personal history of other malignant neoplasm of large intestine; Z85.828 Personal history of other malignant neoplasm of skin; Z20.822 Contact with and (suspected) exposure to COVID-19; Z95.1 Presence of aortocoronary bypass graft; D69.6 Thrombocytopenia, unspecified; Z87.891 Personal history of nicotine dependence; D63.1 Anemia in chronic kidney disease; N18.30 Chronic kidney disease, stage 3 unspecified; F32.9 Major depressive disorder, single episode, unspecified; E87.5 Hyperkalemia; I12.9 Hypertensive chronic kidney disease with stage 1 through stage 4 chronic kidney disease, or unspecified chronic kidney disease; Z90.49 Acquired absence of other specified parts of digestive tract; Z79.899 Other long term (current) drug therapy
CPT/HCPCS: 36415; 71046; 80048; 80053; 81003; 82533; 83735; 84484; 85025; 85610; 85730; 87635; 93005; 96360; 99285

== ENCOUNTER → 2021-05-20 | Outpatient (CLI) | payer MEDICARE, BC ==
[2021-05-20 21:16] LABS: Hemoglobin A1C 5.7 % (4.0-6.0)
[2021-05-21 03:27] LABS: ALT 20 U/L (10-49); AST 22 U/L (14-35); African American GFR (CKD) 59.3 (60.0-200.0); Alkaline Phosphatase 97 U/L (41-126); BUN/Creat Ratio 13.08 Ratio (12.00-20.00); Carbon Dioxide 22.8 mmol/L (21.6-31.8); Chloride 105 mmol/L (96-109); Chol/HDL Ratio 3.07; Cholesterol 141 mg/dL (0-200); Globulin 2.8 g/dL (1.6-3.3); Glucose 121 mg/dL (70-110); Non-African American GFR(CKD) 51.2 (60.0-200.0); Potassium 3.7 mmol/L (3.5-5.5); Sodium 140 mmol/L (135-145); Total Bilirubin 0.3 mg/dL (0.2-1.2)
[2021-05-21 05:16] LABS: Testosterone <7.00 ng/dL (86.98-780.10)
== END | disposition home or self-care (01) ==
LOC: LABWHC1 11:26
PROVIDERS: ATTEND Nurse Practitioner Family
DX: I10 Essential (primary) hypertension (principal); E55.9 Vitamin D deficiency, unspecified; E78.5 Hyperlipidemia, unspecified; R55 Syncope and collapse; R79.89 Other specified abnormal findings of blood chemistry; R73.03 Prediabetes
CPT/HCPCS: 36415; 80053; 80061; 82306; 83036; 84402; 84403; 84443

== ENCOUNTER 2021-05-27 08:11 | Day surgery (SDC) | payer MEDICARE, BC ==
[2021-05-26 11:53] VITALS: BMI 23.5
[~2021-05-27 08:11] MED LIST changes: +ACETAMINOPHEN TAB 500 MG TAB PO PRN; +DEXAMETHASONE SOD PHOSPHATE 4 MG/ML 1 ML VIAL IV ONE; +HEPARIN SODIUM,PORCINE/PF 5,000 UNIT/0.5 ML SYRINGE SQ PRN; +HYDROmorphone 0.5 MG/0.5 ML SYRINGE IVP PRN; -LACTATED RINGERS 1,000 ML IV SCH; -LIDOCAINE 1% (10MG/ML) FOR IV START INTRADERMA ONE; +LIDOCAINE 1% (10MG/ML) FOR IV START INTRADERMA PRN; -LIDOCAINE 1% INJ 10MG/ML (20 ML MDV) ONE; +ONDANSETRON 4 MG/2 ML VIAL IVP ONE; -PROPOFOL 10 MG/ML 20 ML VIAL IV ONE
[2021-05-27] MEDS: LACTATED RINGERS 1,000 ML IV SCH (09:49)
--- NOTE | 2021-05-27 09:53 | P.GSHP ---
History of Present Illness H&P Date: 05/27/21 Chief Complaint: Recurrent hiatal hernia This 80-year-old male has developed a recurrent hiatal hernia. Patient presents today for laparoscopic repair. 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 Past Anesthesia/Blood Transfusion Reactions: No Reported Reaction Smoking Status: Former smoker - Past Family History Father Additional Family Medical History / Comment(s): Pt did not know his father but they were told he of a MA at the age of 42 yrs. Mother Family Medical History: Vascular Disorder Additional Family Medical History / Comment(s): Mother at age 68yrs, pt was told possible d/t ruptured aneurysm in her neck. Medications and Allergies Home Medications Medication Instructions Recorded Confirmed Type Aspirin EC [Ecotrin Low Dose] 81 mg PO DAILY 07/29/16 05/27/21 History Simvastatin [Zocor] 20 mg PO DAILY 04/21/19 05/27/21 History DULoxetine HCL [Cymbalta] 60 mg PO BID 04/04/20 05/26/21 History Fluticasone Nasal [place] [Flonase 2 spr EA NOSTRIL DAILY PRN 04/04/20 05/27/21 History Nasal [place]] Multivitamins, Thera [Multivitamin 1 tab PO DAILY 10/30/20 05/27/21 History (formulary)] Acetaminophen Tab [Tylenol] 650 mg PO Q6H PRN 12/15/20 05/27/21 History Loratadine [Claritin] 10 mg PO DAILY PRN 12/15/20 05/27/21 History Diphenox-Atrop 2.5-0.025 mg 2 tab PO QID PRN #24 tab 12/16/20 05/26/21 Rx [Lomotil] Gabapentin [Neurontin] 600 mg PO BID #6 tab 12/16/20 05/26/21 Rx Ergocalciferol (Vitamin D2) 1,250 mcg PO Q7D 03/26/21 05/27/21 History [Drisdol (50,000 Iu)] Melatonin Gummy (Uk Strength) 1 cap PO HS PRN 03/26/21 05/27/21 History Octreotide Acetate,Mi-Spheres 10 mg IM Q21D 03/26/21 05/26/21 History [SandoSTATIN LAR [place]] Octreotide Acetate,Mi-Spheres 30 mg IM Q21D 03/26/21 05/26/21 History [SandoSTATIN LAR [place]] Omeprazole 40 mg PO DAILY 03/26/21 05/27/21 History Potassium Chloride ER [K-Dur 10] 10 meq PO DAILY 03/26/21 05/27/21 History QUEtiapine XR [SEROquel XR] 200 mg PO HS 03/26/21 05/26/21 History Fludrocortisone [Florinef] 0.1 mg PO HS #30 tablet 03/30/21 05/26/21 Rx Allergies Allergy/AdvReac Type Severity Reaction Status Date / Time No Known Allergies Allergy Verified 05/27/21 08:46 Surgical - Exam Vital Signs Temp Pulse Resp BP Pulse Ox 97.6 F 87 18 203/108 98 05/27/21 08:45 05/27/21 08:45 05/27/21 08:45 05/27/21 08:45 05/27/21 08:45 - General well developed, well nourished, no distress - Eyes PERRL - ENT normal pinna - Neck no masses - Respiratory normal expansion - Cardiovascular Rhythm: regular - Abdomen Abdomen: soft, non tender Assessment and Plan Assessment: Recurrent hiatal hernia. We'll perform laparoscopic repair.
[2021-05-27] MEDS ORDERED: LIDOCAINE 1% INJ 10MG/ML (20 ML MDV) ONE (10:03)
[2021-05-27] MEDS ORDERED: LABETALOL 5 MG/ML VIAL MDV ONE (10:03)
[2021-05-27] MEDS ORDERED: GLYCOPYRROLATE 0.2 MG/ML 2 ML VIAL ONE (10:03)
[2021-05-27] MEDS ORDERED: ROCURONIUM 10 MG/ML (5 ML VIAL) IV ONE (10:03)
[2021-05-27] MEDS ORDERED: NEOSTIGMINE 1 MG/ML 10 ML VIAL ONE (10:03)
[2021-05-27] MEDS ORDERED: PROPOFOL 10 MG/ML 20 ML VIAL IV ONE (10:03)
[2021-05-27] MEDS ORDERED: SUCCINYLCHOLINE CHLORIDE 100 MG/5 ML SYR IV ONE (10:03)
[2021-05-27] MEDS ORDERED: hydrALAZINE HCL 20 MG/ML 1 ML VIAL ONE (10:03)
[2021-05-27] MEDS ORDERED: fentaNYL (PF) 50 MCG/ML 2 ML AMP ONE (10:03)
[2021-05-27] MEDS ORDERED: BUPIVACAINE (PF) 0.5% 30 ML VIAL SQ ONE (10:32)
[2021-05-27] MEDS ORDERED: HYDROmorphone 0.5 MG/0.5 ML SYRINGE IVP PRN (11:22)
[2021-05-27] MEDS ORDERED: NALOXONE 0.4 MG/ML 1 ML VIAL IV PRN (11:22)
[2021-05-27] MEDS ORDERED: ONDANSETRON 4 MG/2 ML VIAL IVP PRN (11:22)
--- NOTE | 2021-05-27 11:26 | P.OP ---
Date of Procedure: 05/27/21 Preoperative Diagnosis: Hiatal hernia Postoperative Diagnosis: Severe intra-abdominal adhesions Hiatal hernia Procedure(s) Performed: Laparoscopic lysis of adhesions Anesthesia: SERENITY Surgeon: Robert Uribe Estimated Blood Loss (ml): 25 Pathology: none sent Condition: stable Disposition: PACU Description of Procedure: Patient's placed the operative table in supine position. He received general anesthesia. He was then placed in dorsal lithotomy position. His abdomen was prepped and draped usual fashion. The patient appears midline scar. Using a optical trocar under direct visualization the pleural cavity is entered in the left lateral position. The abdomen was insufflated and then the laparoscope placed back. Cavity. There is significant adhesions seen throughout the abdominal cavity. Another trochars placed in the left epigastric position and another trochars placed in the left mid abdomen position. Approximately 20 minutes of operative time used to lyse adhesions. The hiatal hernia was visualized. At this point decided to abort the procedure due to adhesions. The trochars withdrawn. There is no bleeding seen. Skin was closed interrupted 3-0 Monocryl suture. Dermabond dressings applied. Patient top she will was sent to recovery room in stable condition.
[2021-05-27] MEDS: HYDROcodone/APAP 5-325MG 1 EACH TAB PO PRN (13:57)
[2021-05-27] MEDS: D5-0.45% NACL WITH KCL 20MEQ/L 1,000 ML IV SCH (14:32)
[2021-05-27] MEDS: QUEtiapine 100 MG TAB PO SCH (20:40)
[2021-05-27] MEDS ORDERED: MELATONIN 3 MG TABLET PO SCH (21:00)
[2021-05-28] MEDS: D5-0.45% NACL WITH KCL 20MEQ/L 1,000 ML IV SCH ×3 (00:10→15:47)
[2021-05-28] MEDS: LACTATED RINGERS 1,000 ML IV SCH (06:57)
[2021-05-28] MEDS: HYDROcodone/APAP 5-325MG 1 EACH TAB PO PRN (07:47)
[2021-05-28] MEDS: QUEtiapine 100 MG TAB PO SCH (07:48)
[2021-05-28] MEDS ORDERED: LORATADINE 10 MG TAB PO PRN (07:52)
[2021-05-28] MEDS ORDERED: GABAPENTIN 300 MG CAP PO SCH (09:00)
[2021-05-28] MEDS ORDERED: DULoxetine HCL 60 MG CAPSULE.DR PO SCH (09:00)
[2021-05-28] MEDS ORDERED: ENOXAPARIN 40 MG/0.4 ML SYRINGE SQ SCH (09:00)
[2021-05-28] MEDS ORDERED: POTASSIUM CHLORIDE ER 10 MEQ TAB.ER.PRT PO SCH (09:00)
[2021-05-28] MEDS ORDERED: ASPIRIN 81 MG PO SCH (09:00)
[2021-05-28] MEDS ORDERED: PANTOPRAZOLE 40 MG TABLET PO SCH (09:00)
[2021-05-28] MEDS ORDERED: ATORVASTATIN 10 MG TAB PO SCH (09:00)
[2021-05-28 09:05] LABS: Basophils # (A) 0.01 X 10*3/uL (0.00-0.10); Basophils % (A) 0.1 %; Eosinophils # (A) 0.03 X 10*3/uL (0.04-0.35); Eosinophils % (A) 0.4 %; HCT 23.9 % (39.6-50.0); HGB 7.9 g/dL (13.0-17.0); Lymphocytes # (A) 1.78 X 10*3/uL (0.90-5.00); Lymphocytes % (A) 22.5 %; MCH 31.5 pg (27.0-32.0); MCHC 33.1 g/dL (32.0-37.0); MCV 95.2 fL (80.0-97.0); Mean Platelet Volume 9.9 fL (9.5-12.2); Monocytes # (A) 0.41 X 10*3/uL (0.20-1.00); Monocytes % (A) 5.2 %; Neutrophils # (A) 5.65 X 10*3/uL (1.80-7.70); Neutrophils % (A) 71.5 %; Platelet Count 180 X 10*3/uL (140-440); RBC 2.51 X 10*6/uL (4.40-5.60); RDW 12.4 % (11.5-14.5)
[2021-05-28 09:34] LABS: African American GFR (CKD) 72.6 (60.0-200.0); Albumin 3.3 g/dL (3.80-4.90); Albumin/Globulin Ratio 1.74 (1.60-3.17); Anion Gap 8.4 mmol/L (4.00-12.00); BUN/Creat Ratio 12.73 Ratio (12.00-20.00); Calcium 8.5 mg/dL (8.7-10.3); Carbon Dioxide 20.6 mmol/L (21.6-31.8); Globulin 1.9 g/dL (1.6-3.3); Non-African American GFR(CKD) 62.6 (60.0-200.0); Potassium 4.1 mmol/L (3.5-5.5); Total Bilirubin 0.3 mg/dL (0.3-1.2); Total Protein 5.2 g/dL (6.2-8.2)
[2021-05-28 13:58] VITALS: BP 150/76; PULSE 76; RESP 16; TEMP 98
[2021-05-28] MEDS ORDERED: FLUDROCORTISONE 0.1 MG TAB PO SCH (21:00)
== END 2021-05-28 16:51 | disposition home or self-care (01) ==
LOC: OR 08:11 → 4SSUR 12:30 → OR 05-28 16:51
PROVIDERS: ATTEND Surgery
DX: K66.0 Peritoneal adhesions (postprocedural) (postinfection) (principal); K44.9 Diaphragmatic hernia without obstruction or gangrene; E78.5 Hyperlipidemia, unspecified; I10 Essential (primary) hypertension; I25.10 Atherosclerotic heart disease of native coronary artery without angina pectoris; K21.9 Gastro-esophageal reflux disease without esophagitis; M19.90 Unspecified osteoarthritis, unspecified site; Z79.82 Long term (current) use of aspirin; Z79.899 Other long term (current) drug therapy; Z82.49 Family history of ischemic heart disease and other diseases of the circulatory system; Z85.46 Personal history of malignant neoplasm of prostate; Z87.891 Personal history of nicotine dependence; Z90.49 Acquired absence of other specified parts of digestive tract; Z95.1 Presence of aortocoronary bypass graft; Z85.038 Personal history of other malignant neoplasm of large intestine
CPT/HCPCS: 44180; 80053; 85025; J0360; J1100; J2710; J0690; J2405; J2001; J1650; J3010; J0330; J2704; J1644

== ENCOUNTER 2021-06-17 07:02 | Day surgery (SDC) | payer MEDICARE, BC ==
[2021-06-10 15:48] VITALS: BMI 22.7
[~2021-06-17 07:02] MED LIST changes: -ACETAMINOPHEN TAB 500 MG TAB PO PRN; +FAMOTIDINE 20 MG/2 ML VIAL IV PRN; -HEPARIN SODIUM,PORCINE/PF 5,000 UNIT/0.5 ML SYRINGE SQ PRN; +LACTATED RINGERS 1,000 ML IV SCH; +ONDANSETRON 4 MG/2 ML VIAL IVP PRN
[2021-06-17] MEDS ORDERED: PROPOFOL 10 MG/ML 20 ML VIAL IV ONE (08:32)
[2021-06-17] MEDS ORDERED: fentaNYL (PF) 50 MCG/ML 2 ML AMP ONE (08:32)
[2021-06-17] MEDS ORDERED: LIDOCAINE 1% INJ 10MG/ML (20 ML MDV) ONE (08:32)
[2021-06-17] MEDS ORDERED: SUCCINYLCHOLINE CHLORIDE 100 MG/5 ML SYR IV ONE (08:32)
[2021-06-17] MEDS ORDERED: LIDOCAINE 1%-EPI 1:100,000 20 ML VIAL SQ ONE (08:56)
[2021-06-17] MEDS ORDERED: BACITRACIN ZINC 500 UNIT/GM OINT 28.4 GM TUBE TOPICAL ONE (09:15)
--- NOTE | 2021-06-17 09:27 | P.OP ---
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 He did have positive margin at that point but elected to observe only and this appears to have recurred. He has a nonhealing lesion right external auditory meatus Operative Findings: Raw excoriated lesion right external auditory meatus approximately 1.3 cm posteriorly but extending from 12:00 to 7:00 in the anatomic position and extending minimally into the external auditory canal grossly oh sterilely Description of Procedure: The patient was brought in the operative suite and placed in a supine position. Patient underwent induction of general anesthesia with oral endotracheal intubation without difficulty. The patient was prepped and draped in usual aseptic fashion. Zeiss microscope was brought into position to visualize the field and 1% lidocaine with 1-100,000 epinephrine was infused subcutaneously in field block fashion posterior external auditory meatus on the right. This was left to work for 7 minutes vasoconstrictive effect. Incision was then made posterior and lateral to the lesion including the underlying cartilage posteriorly at the external auditory meatus. This then extended medially to remove the lesion grossly entirely. Additional margin was taken medially of the posterior external auditory canal. Hemostasis was gained with needlepoint electrocautery. Due to the area this will be left to heal by secondary intention. Bacitracin ointment and a Merocel sponge pack was placed moistened with oh Floxin Otic suspension. The patient was then allowed to emerge from general anesthesia having tolerated procedure well was excised in the operating suite and transferred to postop recovery area in satisfactory condition.
[2021-06-17 09:39] VITALS: TEMP 97.2
[2021-06-17] MEDS ORDERED: LABETALOL SYRINGE 5 MG/ML IVP ONE (10:02)
[2021-06-17] MEDS ORDERED: diphenhydrAMINE 50 MG/ML 1 ML VIAL IVP ONE (10:42)
[2021-06-17] MEDS ORDERED: diphenhydrAMINE 50 MG/ML 1 ML VIAL ONE (10:44)
[2021-06-17] MEDS ORDERED: LACTATED RINGERS 1,000 ML IV ONE (10:50)
[2021-06-17 11:23] VITALS: RESP 20
[2021-06-17 11:52] VITALS: BP 163/70; PULSE 70
== END 2021-06-17 12:18 | disposition home or self-care (01) ==
LOC: OR 07:02
PROVIDERS: ATTEND Otolaryngology
DX: C44.212 Basal cell carcinoma of skin of right ear and external auricular canal (principal); I25.2 Old myocardial infarction; I25.10 Atherosclerotic heart disease of native coronary artery without angina pectoris; E78.5 Hyperlipidemia, unspecified; N40.0 Benign prostatic hyperplasia without lower urinary tract symptoms; K21.9 Gastro-esophageal reflux disease without esophagitis; Z85.038 Personal history of other malignant neoplasm of large intestine; Z79.82 Long term (current) use of aspirin; Z79.899 Other long term (current) drug therapy; Z95.1 Presence of aortocoronary bypass graft
CPT/HCPCS: 88305; 11642; J1200; J1100; J2405; J0690; J2001; J3010; J0330; J2704; J1170

== ENCOUNTER 2021-11-09 20:41 | Inpatient (IN) | payer MEDICARE, BC ==
--- NOTE | 2021-11-09 21:39 | ED ---
Altered Mental Status HPI - General Stated Complaint: Altered Mental Status Time Seen by Provider: 11/09/21 21:03 Limitations: altered mental status - History of Present Illness Initial Comments: This patient is an 80-year-old man who is brought to emergency department for reportedly having altered mental status. I am not able to obtain any useful history, the patient keeps repeating a couple of phrases. He states"I just can 't help it" and "she won't do it with me." He is unable to elaborate on either this statements. Patient not otherwise answering questions. He did respond when one of the techs asked how much she had to drink he stated "one and a half cans." MD Complaint: altered mental status -: unknown Severity: severe - Related Data Home Medications Medication Instructions Recorded Confirmed Aspirin EC [Ecotrin Low Dose] 81 mg PO DAILY 07/29/16 06/17/21 Simvastatin [Zocor] 20 mg PO DAILY 04/21/19 06/17/21 DULoxetine HCL [Cymbalta] 60 mg PO BID 04/04/20 06/17/21 Fluticasone Nasal [place] [Flonase 2 spr EA NOSTRIL DAILY PRN 04/04/20 06/17/21 Nasal [place]] Multivitamins, Thera [Multivitamin 1 tab PO DAILY 10/30/20 06/17/21 (formulary)] Acetaminophen Tab [Tylenol] 650 mg PO Q6H PRN 12/15/20 06/17/21 Loratadine [Claritin] 10 mg PO DAILY PRN 12/15/20 06/17/21 Ergocalciferol (Vitamin D2) 1,250 mcg PO Q7D 03/26/21 06/17/21 [Drisdol (50,000 Iu)] Melatonin Gummy ([place] Strength) 1 cap PO HS PRN 03/26/21 06/17/21 Octreotide Acetate,Mi-Spheres 10 mg IM Q21D 03/26/21 06/17/21 [SandoSTATIN [place]AR [place]] Octreotide Acetate,Mi-Spheres 30 mg IM Q21D 03/26/21 06/17/21 [SandoSTATIN [place]] Omeprazole 40 mg PO DAILY 03/26/21 06/17/21 Potassium Chloride ER [K-Dur 10] 10 meq PO DAILY 03/26/21 06/17/21 QUEtiapine XR [SEROquel XR] 200 mg PO HS 03/26/21 06/17/21 Previous Rx's Medication Instructions Recorded Diphenox-Atrop 2.5-0.025 mg 2 tab PO QID PRN #24 tab 12/16/20 [Lomotil] Gabapentin [Neurontin] 600 mg PO BID #6 tab 12/16/20 Fludrocortisone [Florinef] 0.1 mg PO HS #30 tablet 03/30/21 Allergies Allergy/AdvReac Type Severity Reaction Status Date / Time No Known Allergies Allergy Verified 06/17/21 07:20 Review of Systems ROS Statement: Those systems with pertinent positive or pertinent negative responses have been documented in the HPI. ROS Other: All systems not noted in ROS Statement are negative. 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 Past Anesthesia/Blood Transfusion Reactions: No Reported Reaction Smoking Status: Former smoker, Light tobacco smoker - Past Family History Father Family Medical History: Myocardial Infarction (SD) Additional Family Medical History / Comment(s): Pt did not know his father but they were told he of a SD at the age of 42 yrs. Mother Family Medical History: Vascular Disorder Additional Family Medical History / Comment(s): Mother at age 68yrs, pt was told possible d/t ruptured aneurysm in her neck. General Exam General appearance: alert Head exam: Present: atraumatic, normocephalic Eye exam: Present: normal appearance, PERRL, EOMI. Absent: scleral icterus, conjunctival injection ENT exam: Present: mucous membranes dry Neck exam: Present: normal inspection, full ROM. Absent: tenderness, meningismus Respiratory exam: Present: normal lung sounds bilaterally. Absent: respiratory distress, wheezes, rales, rhonchi, stridor Cardiovascular Exam: Present: regular rate, normal rhythm, normal heart sounds. Absent: systolic murmur, diastolic murmur, rubs, gallop GI/Abdominal exam: Present: soft. Absent: distended, tenderness, guarding, rebound, rigid, mass Extremities exam: Present: normal inspection, full ROM, normal capillary refill. Absent: tenderness, pedal edema, calf tenderness Back exam: Present: normal inspection. Absent: vertebral tenderness Neurological exam: Present: other (Patient does not following any commands and is not able to cooperate with the mental status exam or neurologic exam. He does move all 4 extremities. Speech is not dysarthric.). Absent: motor sensory deficit Skin exam: Present: warm, dry, intact, normal color. Absent: rash Medical Decision Making - EKG Data -: EKG Interpreted by Me (There is moderate amount of motion artifact.) EKG shows normal: sinus rhythm, axis (Normal), intervals (Normal), QRS complexes (Normal), ST-T waves (ST and T wave abnormality, possible anterolateral ischemia. This is present on the comparison ECG.) Rate: normal (Rate 90 bpm) When compared to previous EKG there are: no significant change Disposition Referrals: Gail Tidwell DO [Primary Care Provider] - 1-2 days
--- NOTE | 2021-11-09 21:54 | XR ---
EXAMINATION TYPE: XR chest 1V portable DATE OF EXAM: 11/09/2021 COMPARISON: 03/26/2021 HISTORY: Syncope altered mental status TECHNIQUE: FINDINGS: Heart is normal. Lungs are clear of infiltrate. There is no heart failure. There are no hil ar masses. There are sternal wires. Costophrenic angles are clear. There are chest leads. IMPRESSION: No active cardiopulmonary disease. Normal heart. No change.
[2021-11-09 21:55] LABS: Basophils % (A) 0 %; Eosinophils % (A) 0 %; HCT 33.4 % (39.0-53.0); HGB 11.5 gm/dL (13.0-17.5); Lymphocytes # (A) 2.6 k/uL (1.0-4.8); Lymphocytes % (A) 24 %; MCH 32.3 pg (25.0-35.0); MCHC 34.3 g/dL (31.0-37.0); MCV 94.1 fL (80.0-100.0); Monocytes # (A) 0.7 k/uL (0-1.0); Monocytes % (A) 6 %; Neutrophils # (A) 7.2 k/uL (1.3-7.7); Neutrophils % (A) 68 %; Platelet Count 265 k/uL (150-450); RBC 3.55 m/uL (4.30-5.90); RDW 12.3 % (11.5-15.5); WBC 10.6 k/uL (3.8-10.6)
[2021-11-09 22:04] LABS: ALT 19 U/L (4-49); AST 41 U/L (17-59); African American GFR (CKD) 43 (>60 ml/min/1.73 sqM); Albumin 4.7 g/dL (3.5-5.0); Alcohol <10 mg/dL; Alkaline Phosphatase 102 U/L (38-126); Anion Gap 14 mmol/L; Blood Urea Nitrogen 24 mg/dL (9-20); Calcium 9.8 mg/dL (8.4-10.2); Carbon Dioxide 18 mmol/L (22-30); Chloride 102 mmol/L (98-107); Glucose 140 mg/dL (74-99); Non-African American GFR(CKD) 37 (>60 ml/min/1.73 sqM); Potassium 3.9 mmol/L (3.5-5.1); Sodium 134 mmol/L (137-145); Total Bilirubin 1.1 mg/dL (0.2-1.3); Total Protein 7.9 g/dL (6.3-8.2)
[2021-11-09 22:09] LABS: INR 1.1 (<1.2); Partial Thromboplastin Time 25.5 sec (22.0-30.0); Prothrombin Time 11.7 sec (9.0-12.0)
--- NOTE | 2021-11-09 23:16 | CT ---
EXAMINATION TYPE: CT brain wo con DATE OF EXAM: 11/09/2021 COMPARISON: 11/23/2020 HISTORY: AMS CT DLP: 1269.4 mGycm Automated exposure control for dose reduction was used. There is cerebral cortical atrophy. There is no mass effect or midline shift. There is no sign of int racranial hemorrhage. There is some hypodensity in the periventricular white matter. Calvarium is int act. There is normal aeration of the mastoid sinuses. IMPRESSION: Cerebral atrophy. No acute intracranial abnormality. Chronic small vessel ischemia. No change.
[2021-11-10 00:19] LABS: Appearance,Urine Clear (Clear); Bilirubin,Urine Negative (Negative); Blood,Urine Negative (Negative); Color,Urine Yellow; Glucose,Urine (UA) Negative (Negative); Hyaline Casts,Urine 8 /lpf (0-2); Ketones,Urine 1+ (Negative); Leukocyte Esterase,Urine Negative (Negative); Mucus,Urine Rare /hpf; Nitrite,Urine Negative (Negative); PH, Urine 8.5 (5.0-8.0); Protein,Urine 1+ (Negative); RBC,Urine <1 /hpf (0-5); Urobilinogen,Urine <2.0 mg/dL (<2.0); WBC,Urine 1 /hpf (0-5)
[2021-11-10 00:23] LABS: Cocaine Screen,Urine Not Detected (NotDetected); Opiate Screen,Urine Not Detected (NotDetected); Phencyclidine Screen,Urine Not Detected (NotDetected); Urn Cannabinoid Scrn Not Detected (NotDetected)
[2021-11-10 00:24] LABS: Amphetamine Screen,Urine Not Detected (NotDetected); Barbiturate Screen,Urine Not Detected (NotDetected); Benzodiazepines Screen,Urine Not Detected (NotDetected); Methadone Screen, Urine Not Detected (NotDetected); Oxycodone Screen, Urine Not Detected (NotDetected); Tricyclic Antidepressant,Urine Detected (NotDetected)
[2021-11-10] MEDS ORDERED: LORazepam 2 MG/ML INJ IV STA (02:26)
[2021-11-10] MEDS ORDERED: NALOXONE 0.4 MG/ML 1 ML VIAL IV PRN (02:55)
[2021-11-10] MEDS ORDERED: ONDANSETRON 4 MG/2 ML VIAL IVP PRN (02:55)
[2021-11-10] MEDS: SODIUM CHLORIDE 0.9% 1,000 ML IV SCH ×3 (03:19→22:15)
[2021-11-10] MEDS ORDERED: hydrALAZINE HCL 20 MG/ML 1 ML VIAL IVP STA (08:15)
[2021-11-10] MEDS ORDERED: LORATADINE 10 MG TAB PO PRN (08:40)
[2021-11-10] MEDS: TAMSULOSIN 0.4 MG CAP.ER.24H PO SCH (10:16)
[2021-11-10] MEDS: ASPIRIN 81 MG PO SCH (10:16)
[2021-11-10] MEDS: POTASSIUM CHLORIDE ER 10 MEQ TAB.ER.PRT PO SCH (10:16)
[2021-11-10] MEDS: QUEtiapine 100 MG TAB PO SCH (10:16)
[2021-11-10] MEDS: amLODIPine 10 MG TAB PO SCH (10:16)
[2021-11-10] MEDS: FLUDROCORTISONE 0.1 MG TAB PO SCH (10:16)
[2021-11-10] MEDS: ATORVASTATIN 10 MG TAB PO SCH (10:16)
[2021-11-10] MEDS: DULoxetine HCL 60 MG CAPSULE.DR PO SCH (10:16)
[2021-11-10] MEDS: FAMOTIDINE 20 MG TAB PO SCH (10:16)
[2021-11-10] MEDS: PANTOPRAZOLE 40 MG TABLET PO SCH (10:17)
--- NOTE | 2021-11-10 10:24 | P.CNNES ---
History of Present Illness Consult date: 11/10/21 Requesting physician: Rey Gonzalez Reason for Consult: altered mental status/acute delerium History of Present Illness: This is an 80-year-old gentleman syncopal episodes, prostate cancer status post radiation, partial small bowel obstruction status post laparotomy, CABG who presented emergency department on 11/10/2021 for altered mental status. Some of the history is obtained from medical record as well as the patient nurse at. Per the patient's nurse the son stated that the patient lives by himself and he is usually alert oriented 4. He stated that the patient was the hallucinating and confused yesterday but seems to be doing somewhat better today compared to yesterday. Some of the patient on medication consist of aspirin 81 mg daily, Cymbalta 120 mg daily, or puzzle, Seroquel 200 mg daily at bedtime, Zocor 20 mg daily, Pepcid, Flomax, Singulair, vitamin D2, testosterone, potassium Some other workup in the hospital consisted of: Initial vitals sign is 194/103, hr 91, rr 20, pulse oxygen is 95% at room air. Next blood pressure is 221/114. Temp 98.5 wbc is 103K. Sodium is 134, Creatnine 1.7, glucose 140, calcium 9.8, AST, 41 and ALT 19. Ammonia level is less than 9. Urine analysis is negative for UTI. Urine drug screen is positive to tricylics.Otherwise not detected and serum alcohol is <10. Elaine virus PCR is not detected. CT of the head is reported as cerebral atrophy. No acute intracranial abnormality. Chronic small vessel ischemia. No change. I personally reviewed that a CT of the head and I agree with the finding. I feel the patient had generalized atrophy appropriate for his age. Review of Systems Review of system is limited but the prone positive and negative as per HPI. 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 Past Anesthesia/Blood Transfusion Reactions: No Reported Reaction Past Psychological History: No Psychological Hx Reported Smoking Status: Former smoker, Light tobacco smoker - Past Family History Father Family Medical History: Myocardial Infarction (IN) Additional Family Medical History / Comment(s): Pt did not know his father but they were told he of a IN at the age of 42 yrs. Mother Family Medical History: Vascular Disorder Additional Family Medical History / Comment(s): Mother at age 68yrs, pt was told possible d/t ruptured aneurysm in her neck. Medications and Allergies Home Medications Medication Instructions Recorded Confirmed Type Aspirin EC [Ecotrin Low Dose] 81 mg PO DAILY 07/29/16 11/09/21 History Simvastatin [Zocor] 20 mg PO DAILY 04/21/19 11/09/21 History DULoxetine HCL [Cymbalta] 120 mg PO DAILY 04/04/20 11/09/21 History Loratadine [Claritin] 10 mg PO DAILY PRN 12/15/20 11/09/21 History Diphenox-Atrop 2.5-0.025 mg 2 tab PO QID PRN #24 tab 12/16/20 11/09/21 Rx [Lomotil] Octreotide Acetate,Mi-Spheres 10 mg IM Q21D 03/26/21 11/09/21 History [SandoSTATIN [place]] Octreotide Acetate,Mi-Spheres 30 mg IM Q21D 03/26/21 11/09/21 History [SandoSTATIN [place]] Omeprazole 40 mg PO DAILY 03/26/21 11/09/21 History Potassium Chloride ER [K-Dur 10] 10 meq PO DAILY 03/26/21 11/09/21 History QUEtiapine XR [SEROquel XR] 200 mg PO HS 03/26/21 11/09/21 History Acetaminophen Tab [Tylenol Tab] 500 - 1,000 mg PO Q6H PRN 11/09/21 11/09/21 History Dm/Acetaminophen/Doxylamine [Vicks 30 ml PO HS PRN 11/09/21 11/09/21 History Nyquil Cold-Flu Liquid] Famotidine [Pepcid] 20 mg PO DAILY 11/09/21 11/09/21 History Fludrocortisone [Florinef] 0.2 mg PO DAILY 11/09/21 11/09/21 History Ibuprofen [Motrin] 800 mg PO TID PRN 11/09/21 11/09/21 History Tamsulosin HCl [Flomax] 0.4 mg PO DAILY 11/09/21 11/09/21 History Testosterone Cypionate 100 mg IM Q28D 11/09/21 11/10/21 History [Depo-Testosterone] Triamcinolone Acetonide 1 spr EA NOSTRIL DAILY 11/09/21 11/09/21 History [Triamcinolone Acetonide 0.055MG Nasal] Ergocalciferol [Vitamin D2 (1250 1,250 mcg PO Q7D 11/10/21 11/10/21 History Mcg = 21669 Iu)] Montelukast [Singulair] 10 mg PO DAILY 11/10/21 11/10/21 History Allergies Allergy/AdvReac Type Severity Reaction Status Date / Time No Known Allergies Allergy Verified 06/17/21 07:20 Physical Examination - Vital Signs Vital Signs: Vital Signs Pulse Resp BP Pulse Ox 11/10/21 08:37 99 18 172/91 99 11/10/21 07:51 93 16 201/115 97 11/10/21 05:59 91 16 179/105 98 11/10/21 05:21 92 18 178/107 98 11/10/21 04:00 97 18 95 11/10/21 02:37 81 18 197/103 95 11/10/21 01:03 86 18 202/107 94 L 11/10/21 00:28 93 18 221/114 95 11/09/21 22:41 83 18 190/108 95 11/09/21 22:38 91 20 194/103 95 Intake and Output 11/09/21 11/10/21 11/10/21 22:59 06:59 14:59 Other: Weight 72.575 kg GENERAL: The patient is lying in bed and is not in acute distress. CHEST: The heart rate is regular rate rhythm. No murmurs to auscultation. LUNG: Clear to auscultation bilaterally no wheezing noted throughout. Not labored breathing. ABDOMEN/GI: Bowel sounds present in all 4 quadrants. No tenderness to palpation throughout. NEUROLOGICAL: Higher mental function: The patient is awake, alert, oriented to self. He states he is in the hospital and states the year is 2021 and correctly states the month. He is able to name objects (watch and glasses). Patient is following simple commands. He is somewhat to slow to follow and had to be instructed a few time. I felt there were minimal paraphasic errors. Otherwise language is normal. No neglect. Cranial nerves: The pupils are round, equal and reactive to light. Visual laboy are full to confrontation throughout. Extraocular movement is intact no nystagmus is noted. Facial sensation is normal to touch throughout. The facial strength is normal throughout. Hearing is severely decrease bilaterally to hand rub. Tongue is midline and moved [id number] without any difficulty. No dysarthria is noted. Shoulder shrug is normal bilaterally. Motor: Gait is deferred. The strength is left upper extremity is 4+. Otherwise was lifting all extremities above gravity and not focality. Normal tone and bulk. Cerebellum: Normal finger to nose bilaterally. Sensation: Sensation is normal to touch throughout. Reflexes (right/left): 1+ throughout. Plantars are mute bilaterally. Results - Laboratory Findings CBC and BMP: 11/09/21 21:24 11/09/21 21:24 Abnormal Lab Findings: Abnormal Labs 11/09/21 11/09/21 11/09/21 21:24 21:24 22:35 RBC 3.55 L Hgb 11.5 L Hct 33.4 L Sodium 134 L Carbon Dioxide 18 L BUN 24 H Creatinine 1.70 H Glucose 140 H Urine pH 8.5 H Urine Protein 1+ H Urine Ketones 1+ H Hyaline Casts 8 H Urine Mucus Rare H U Tricyclic Antidepress Detected H Assessment and Plan Assessment: * Encephalopathy of unknown etiology. Patient has uncontrolled hypertension as high as 221/114 and one of the possibilities is uncontrolled hypertension can lead to an encephalopathy. On examination had left upper extremity weakness: Rule out stroke.--mentation is improving. * Hypertensive urgency * Acute on chronic kidney insufficiency * History of syncopal episode * History of prostate cancer status post radiation * Partial small bowel obstruction status post laparotomy * History of CABG Plan: I ordered a routine EEG. I'll not start the patient on an antiepileptic drug unless there is epileptiform discharges or seizure on the EEG. Ordered TSH, vitamin B12, folate. Ordered MRI of the brain to rule out stroke. Ordered carotid duplex. I will order rest of stroke work-up if positive for stroke. Currently on his home medication of ASA 81mg daily and Lipitor 10mg daily which is sufficient for secondary stroke prophylaxis at this time. Every 4 hours neuro checks We'll defer hypertension management to the primary team. Please avoid aggressive blood pressure control. We'll defer the rest of the medical management to the primary team The plan is discussed with the patient's nurse. Thank you for the consultation. Rodrigue Stuart M.D. Neuro-hospitalist Time with Patient: Greater than 30
[2021-11-10] MEDS: SIMETHICONE 80 MG CHEWABLE PO SCH ×4 (11:56→22:14)
--- NOTE | 2021-11-10 13:05 | US ---
EXAMINATION TYPE: US carotid duplex BILAT DATE OF EXAM: 11/10/2021 COMPARISON: NONE CLINICAL HISTORY: stroke. AMS, poor historian EXAM MEASUREMENTS: RIGHT: Peak Systolic Velocity (PSV) cm/sec ----- Right CCA: 79.7 ----- Right ICA: 104.0 ----- Right ECA: 115.6 ICA/CCA ratio: 1.3 RIGHT: End Diastole cm/sec ----- Right CCA: 19.5 ----- Right ICA: 42.5 ----- Right ECA: 8.2 LEFT: Peak Systolic Velocity (PSV) cm/sec ----- Left CCA: 115.7 ----- Left ICA: 110.4 ----- Left ECA: 103.9 ICA/CCA ratio: 1.0 LEFT: End Diastole cm/sec ----- Left CCA: 36.6 ----- Left ICA: 37.9 ----- Left ECA: 12.0 VERTEBRALS (direction of flow): Right Vertebral: Antegrade Left Vertebral: Antegrade Rhythm: Normal Heterogeneous plaque with no significant stenosis seen IMPRESSION: No evidence for hemodynamically significant stenosis. Criteria for Assigning % of Stenosis / Diameter reduction (Estimation based on the indirect measurements of the internal carotid artery velocities (ICA PSV). 1. Normal (no stenosis)=ICA PSV < 125 cm/s: ratio < 2.0: ICA EDV<40 cm/s. 2. Less than 50% stenosis=ICA PSV < 125 cm/s: ratio < 2.0: ICA EDV<40 cm/s. 3. 50 to 69% stenosis=ICA PSV of 125 to 230 cm/s: ration 2.0 ? 4.0: ICA EDV 40-100 cm/s. 4. Greater than 70% stenosis to near occlusion= ICA PSV > 230 cm/s: ratio > 4.0: ICA EDV > 100 cm/s. 5. Near occlusion= ICA PSV velocities may be low or undetectable: variable ratio and ICA EDV. 6. Total occlusion=unable to detect flow.
--- NOTE | 2021-11-10 15:49 | EEG ---
ELECTROENCEPHALOGRAM REPORT DATE OF SERVICE: 11/10/2021. CLINICAL HISTORY: This is an 80-year-old gentleman who presented to the emergency department because of altered mental status. The video EEG was obtained to evaluate for seizure epileptiform activity. RELEVANT MEDICATION: The patient received 2 mg Ativan. EEG TYPE: A routine 21 channel EEG was performed with video using the 10/20 electrode placement system. DESCRIPTION: Sleep state was only obtained. Throughout the entire study, the patient was in a sleep state. I could not evaluate the patient's background since the patient was in sleep state. There was no focal slowing. Interictal and ictal: None. ACTIVATION PROCEDURE: Photic stimulation did not evoke a posterior driving response. There was no abnormality during the photic stimulation. Hyperventilation was not performed. CLINICAL INTERPRETATION: This was a normal routine EEG during sleep state. The entire study was captured during sleep. I cannot comment on the patient's background since was in a sleep state. Otherwise, there was no focal slowing, epileptiform discharges or seizure on the EEG. Clinical correlation is recommended. MMEVERARDO / DANNIELLEN: [id number] / MTDD
[2021-11-10] MEDS ORDERED: QUEtiapine 100 MG TAB PO STA (21:54)
--- NOTE | 2021-11-10 23:21 | P.HPIM ---
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 He had apparently been drinking and his family noticed him with nonsensical speaking so brought him in to the ED. On presentation his BP was 220/114, Hgb 11.5, Cr 1.7, trop negative, UA negative. CT head with no acute process. Pt given hydralazine with improvement in BP. Review of Systems All systems: negative Constitutional: Reports malaise, Reports weakness, Denies chills, Denies fever Eyes: denies blurred vision, denies pain Ears, nose, mouth and throat: Denies headache, Denies sore throat Cardiovascular: Denies chest pain, Denies shortness of breath Respiratory: Denies cough Gastrointestinal: Denies abdominal pain, Denies diarrhea, Denies nausea, Denies vomiting Musculoskeletal: Denies myalgias Integumentary: Denies pruritus, Denies rash Neurological: Reports change in mentation, Reports confusion, Reports weakness, Denies numbness Psychiatric: Denies anxiety, Denies depression Endocrine: Denies fatigue, Denies weight change Past Medical History Past Medical History: Coronary Artery Disease (CAD), Cancer, GERD/Reflux, Hype rlipidemia, Hypertension, Osteoarthritis (OA), Prostate Disorder, Syncope Additional Past Medical History / Comment(s): Syncope with FALLS, prostate cancer with radiated seed placed, colon cancer with small bowel resection/chronic diarrhea which has improved with medication, partial small bowel obstructions with conservative treatment/laparotomy with lysis of adhesions, ileus, 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 Past Anesthesia/Blood Transfusion Reactions: No Reported Reaction Past Psychological History: No Psychological Hx Reported Smoking Status: Former smoker, Light tobacco smoker - Past Family History Father Family Medical History: Myocardial Infarction (CT) Additional Family Medical History / Comment(s): Pt did not know his father but they were told he of a CT at the age of 42 yrs. Mother Family Medical History: Vascular Disorder Additional Family Medical History / Comment(s): Mother at age 68yrs, pt was told possible d/t ruptured aneurysm in her neck. Medications and Allergies Home Medications Medication Instructions Recorded Confirmed Type Aspirin EC [Ecotrin Low Dose] 81 mg PO DAILY 07/29/16 11/09/21 History Simvastatin [Zocor] 20 mg PO DAILY 04/21/19 11/09/21 History DULoxetine HCL [Cymbalta] 120 mg PO DAILY 04/04/20 11/09/21 History Loratadine [Claritin] 10 mg PO DAILY PRN 12/15/20 11/09/21 History Diphenox-Atrop 2.5-0.025 mg 2 tab PO QID PRN #24 tab 12/16/20 11/09/21 Rx [Lomotil] Octreotide Acetate,Mi-Spheres 10 mg IM Q21D 03/26/21 11/09/21 History [SandoSTATIN LAR Depot] Octreotide Acetate,Mi-Spheres 30 mg IM Q21D 03/26/21 11/09/21 History [SandoSTATIN LAR Depot] Omeprazole 40 mg PO DAILY 03/26/21 11/09/21 History Potassium Chloride ER [K-Dur 10] 10 meq PO DAILY 03/26/21 11/09/21 History QUEtiapine XR [SEROquel XR] 200 mg PO HS 03/26/21 11/09/21 History Acetaminophen Tab [Tylenol Tab] 500 - 1,000 mg PO Q6H PRN 11/09/21 11/09/21 History Dm/Acetaminophen/Doxylamine [Vicks 30 ml PO HS PRN 11/09/21 11/09/21 History Nyquil Cold-Flu Liquid] Famotidine [Pepcid] 20 mg PO DAILY 11/09/21 11/09/21 History Fludrocortisone [Florinef] 0.2 mg PO DAILY 11/09/21 11/09/21 History Ibuprofen [Motrin] 800 mg PO TID PRN 11/09/21 11/09/21 History Tamsulosin HCl [Flomax] 0.4 mg PO DAILY 11/09/21 11/09/21 History Testosterone Cypionate 100 mg IM Q28D 11/09/21 11/10/21 History [Depo-Testosterone] Triamcinolone Acetonide 1 spr EA NOSTRIL DAILY 11/09/21 11/09/21 History [Triamcinolone Acetonide 0.055MG Nasal] Ergocalciferol [Vitamin D2 (1250 1,250 mcg PO Q7D 11/10/21 11/10/21 History Mcg = 47211 Iu)] Montelukast [Singulair] 10 mg PO DAILY 11/10/21 11/10/21 History Allergies Allergy/AdvReac Type Severity Reaction Status Date / Time No Known Allergies Allergy Verified 06/17/21 07:20 Physical Exam Vitals: Vital Signs Temp Pulse Pulse Resp BP BP Pulse Ox 11/10/21 20:00 98 F 89 12 136/76 98 11/10/21 16:35 89 16 117/66 96 11/10/21 13:00 92 16 127/74 98 11/10/21 10:56 93 18 152/79 96 11/10/21 09:00 98.5 F 92 18 149/81 11/10/21 08:37 99 18 172/91 99 11/10/21 07:51 93 16 201/115 97 11/10/21 05:59 91 16 179/105 98 11/10/21 05:21 92 18 178/107 98 11/10/21 04:00 97 18 95 11/10/21 02:37 81 18 197/103 95 11/10/21 01:03 86 18 202/107 94 L 11/10/21 00:28 93 18 221/114 95 Intake and Output 11/10/21 11/10/21 11/11/21 14:59 22:59 06:59 Other: Weight 72.575 kg General: well nourished, well developed, NAD. Vitals reviewed Eyes: PERRL, EOMI, conjunctiva normal HENT: normocephalic, mucus membranes moist Neck: supple, no JVD Lungs: normal respiratory effort, no wheezes or rales CV: Regular rate and rhythm, no murmur. Peripheral pulses 2+ Abdomen: soft, nondistended, no organomegaly Lymph: no cervical or axillary LAD Skin: warm and dry. Neuro: A&Ox3, normal mood and affect No focal deficit Results CBC & Chem 7: 11/09/21 21:24 11/09/21 21:24 Labs: Abnormal Lab Results - Last 24 Hours (Table) 11/09/21 Range/Units 22:35 Urine pH 8.5 H (5.0-8.0) Urine Protein 1+ H (Negative) Urine Ketones 1+ H (Negative) Hyaline Casts 8 H (0-2) /lpf Urine Mucus Rare H (None) /hpf U Tricyclic Antidepress Detected H (NotDetected) Thrombosis Risk Factor Assmnt - Choose All That Apply Any of the Below Risk Factors Present?: No Other Risk Factors: Yes Each Risk Factor Represents 3 Points: Age 75 years or older Thrombosis Risk Factor Assessment Total Risk Factor Score: 3 Thrombosis Risk Factor Assessment Level: Moderate Risk Assessment and Plan Plan: 1. Acute encephalopathy secondary to hypertensive emergency. S/p hydralazine, start Norvasc. Consult neurology, rule out CVA 2. CAD. Continue lipitor, ASA 3. Carcinoid syndrome. continue cortef, lomotil prn 4. Depression. Continue seroquel
[2021-11-11] MEDS: SODIUM CHLORIDE 0.9% 1,000 ML IV SCH ×3 (05:22→16:22)
[2021-11-11] MEDS: amLODIPine 10 MG TAB PO SCH (08:18)
[2021-11-11] MEDS: FAMOTIDINE 20 MG TAB PO SCH (08:18)
[2021-11-11] MEDS: DULoxetine HCL 60 MG CAPSULE.DR PO SCH (08:18)
[2021-11-11] MEDS: POTASSIUM CHLORIDE ER 10 MEQ TAB.ER.PRT PO SCH (08:19)
[2021-11-11] MEDS: ASPIRIN 81 MG PO SCH (08:19)
[2021-11-11] MEDS: TAMSULOSIN 0.4 MG CAP.ER.24H PO SCH (08:19)
[2021-11-11] MEDS: PANTOPRAZOLE 40 MG TABLET PO SCH (08:19)
[2021-11-11] MEDS: ATORVASTATIN 10 MG TAB PO SCH (08:19)
[2021-11-11] MEDS: SIMETHICONE 80 MG CHEWABLE PO SCH ×5 (08:20→19:59)
[2021-11-11] MEDS: QUEtiapine 100 MG TAB PO SCH ×2 (08:20→19:59)
[2021-11-11] MEDS: FLUDROCORTISONE 0.1 MG TAB PO SCH (08:20)
--- NOTE | 2021-11-11 11:04 | P.PN ---
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 He had apparently been drinking and his family noticed him with nonsensical speaking so brought him in to the ED. On presentation his BP was 220/114, Hgb 11.5, Cr 1.7, trop negative, UA negative. CT head with no acute process. Pt given hydralazine with improvement in BP. 11-11-21 sensorium significantly improved. Evaluated by neurology and recommen dations noted and appreciated. Neuro workup in progress with MRI pending. Carotid Doppler study reported no hemodynamic significant stenosis. Norvasc added to med. regimen yesterday with blood pressures controlled. Denies chest pain, palpitations or shortness of breath. Denies lightheadedness dizziness or focal deficits. Labs pending. Objective - Vital Signs Vital signs: Vital Signs Temp 97.8 F 11/11/21 08:00 Pulse 89 11/11/21 08:00 Resp 16 11/11/21 08:00 BP 137/46 11/11/21 08:00 Pulse Ox 99 11/11/21 08:00 Intake & Output 11/10/21 11/11/21 11/11/21 18:59 06:59 18:59 Output Total 200 Balance -200 Weight 72.575 kg Output: Urine 200 Other: Voiding Method Urinal Diaper Incontinent # Voids 2 - Exam General: Alert and oriented 3, Lying in bed, NAD. Vitals reviewed, Eyes: PERRL, EOMI, conjunctiva normal HENT: normocephalic, mucus membranes moist Neck: supple, no JVD Lungs: normal respiratory effort, no wheezes or rales CV: Regular rate and rhythm, no murmur. Peripheral pulses 2+ Abdomen: soft, nondistended, no organomegaly,+BS Skin: warm and dry. Neuro: No focal deficits. - Labs CBC & Chem 7: 11/09/21 21:24 11/09/21 21:24 Labs: Microbiology - Last 24 Hours (Table) 11/09/21 21:24 Blood Culture - Preliminary Blood No Growth after 24 hours 11/09/21 21:40 Blood Culture - Preliminary Blood No Growth after 24 hours Assessment and Plan Assessment: Acute encephalopathy secondary to hypertensive emergency, rule out CVA. Hypertensive urgency Acute on chronic renal failure, stage III Anemia of chronic disease Gastroesophageal reflux disease CAD, history of CABG History of syncope Carcinoid syndrome Depression Plan: Continue on current medication regime ,monitoring and symptomatic treatment. Labs pending. Gentle IV fluid hydration with IV fluids decreased. Neuro workup in progress, MRI pending. The impression and plan of care has been dictated as directed. : I performed a history and examination of this patient, discussed the same with the dictator. I agree with the dictator's note ,documented as a scribe. Any additional findings or plans will be noted.
--- NOTE | 2021-11-11 11:44 | P.PN ---
Subjective Progress Note Date: 11/11/21 The patient is seen at bedside and he feels he is doing better. Objective - Vital Signs Vital signs: Vital Signs Temp 97.8 F 11/11/21 08:00 Pulse 89 11/11/21 08:00 Resp 16 11/11/21 08:00 BP 137/46 11/11/21 08:00 Pulse Ox 99 11/11/21 08:00 Intake & Output 11/10/21 11/11/21 11/11/21 18:59 06:59 18:59 Output Total 200 Balance -200 Weight 72.575 kg Output: Urine 200 Other: Voiding Method Urinal Diaper Incontinent # Voids 2 - Exam GENERAL: The patient is lying in bed and is not in acute distress. NEUROLOGICAL: Higher mental function: The patient is awake, alert, oriented to self and time. With options he states he is in the hospital. He correctly states the current state. He is able to name objects correcty (pen and watch). . He seems more responsive today compared to yesterday. Patient is following simple commands. No aphasia or neglect. Cranial nerves: The pupils are round, equal and reactive to light. Visual laboy are full to confrontation throughout. Extraocular movement is intact no nystagmus is noted. Facial sensation is normal to touch throughout. The facial strength is normal throughout. Hearing is severely decrease bilaterally to hand rub. Tongue is midline and moved [id number] without any difficulty. No dysarthria is noted. Shoulder shrug is normal bilaterally. Motor: Gait is deferred. The strength is left upper extremity is 4+ to 5-. Otherwise was lifting all extremities above gravity and not focality. Normal tone and bulk. Cerebellum: Normal finger to nose bilaterally. Sensation: Sensation is normal to touch throughout. Reflexes (right/left): 1+ throughout. Plantars are mute bilaterally. WORK-UP: Sodium is 134, Creatnine 1.7, glucose 140, calcium 9.8, AST, 41 and ALT 19. Ammonia level is less than 9. Vitamin B12 is 549 Serum Folate is a 12.4 TSH is 2.070 Urine analysis is negative for UTI. Urine drug screen is positive to tricylics.Otherwise not detected and serum alcohol is <10. Elaine virus PCR is not detected. CT of the head is reported as cerebral atrophy. No acute intracranial abnormality. Chronic small vessel ischemia. No change. I personally reviewed that a CT of the head and I agree with the finding. I feel the patient had generalized atrophy appropriate for his age. Routine EEG 11/10/2021: This was a normal routine EEG during sleep state. The entire study was captured during sleep. I cannot comment on the patient background since he was in a sleep state. Otherwise, there was no focal slowing, epileptiform discharges or seizure on the EEG. - Labs CBC & Chem 7: 11/09/21 21:24 11/09/21 21:24 Labs: Microbiology - Last 24 Hours (Table) 11/09/21 21:24 Blood Culture - Preliminary Blood No Growth after 24 hours 11/09/21 21:40 Blood Culture - Preliminary Blood No Growth after 24 hours Assessment and Plan Assessment: * Encephalopathy of unknown etiology. Patient has uncontrolled hypertension as high as 221/114 and one of the possibilities is uncontrolled hypertension can lead to an encephalopathy. On examination had left upper extremity weakness: Rule out stroke.--mentation is improving. * Hypertensive urgency * Acute on chronic kidney insufficiency * History of syncopal episode * History of prostate cancer status post radiation * Partial small bowel obstruction status post laparotomy * History of CABG Plan: MRI of the brain is pending to rule out stroke. Ordered carotid duplex. I will order rest of stroke work-up if positive for stroke. Currently on his home medication of ASA 81mg daily and Lipitor 10mg daily which is sufficient for secondary stroke prophylaxis at this time. Every 4 hours neuro checks We'll defer hypertension management to the primary team. Please avoid aggressive blood pressure control. We'll defer the rest of the medical management to the primary team The plan is discussed with the patient's nurse. Rodrigue Stuart M.D. Neuro-hospitalist Time with Patient: Less than 30
--- NOTE | 2021-11-11 11:59 | CDI ---
Documentation Clarification Form Date: 11/11/2021 11:47:16 AM From: Jessie SolizGamezRAZ hughes, CCDS Admit Date: 11/10/2021 12:39:00 PM Patient Name: Reinier Bajwa Visit Number: [id number] Discharge Date: ATTENTION: The Clinical Documentation Specialists (CDI) and [facility] Coding Staff appreciate your assistance in clarifying documentation. Please respond to the clarification below the line at the bottom and electronically sign. The CDI & [facility] Coding staff will review the response and follow-up if needed. Please note: Queries are made part of the Legal Health Record. If you have any questions, please contact the author of this message via ITS. Dr. Kenneth Luciano: Conflicting documentation has been found in the medical record: Per the 11/10 History & Physical: Acute encephalopathy secondary to Hypertensive Emergency. Per the 11/10 Neuro Consult: Hypertensive Urgency per the 11/11 Attending Physician Progress Note: Hypertensive Emergency and Hypertensive Urgency is documented. As attending physician, please provide clarification. History/Risk Factors per the 11/10 H/P: CAD status post CABG, Prostate Cancer status post Radiation Seeds, Colon Cancer status post Small Bowel Resection, Skin Cancer status post removal, Hypertension, Hyperlipidemia, GERD, Syncope with Falls, Partial SBOs, Ileus, Dysphagia & Tortuous Esophagus with possible Distal Esophageal Polyp, Esophageal Strictures, UTI. Former smoker. Clinical Indicators: Presented to the ED on 11/09 with Altered Mental Status. Admit with same. 11/09 VS: T ( ), P 91, R 20, BP 194/103, 190/118, 221/114, 202/117; PO 95 RA, BMI: 24.3 11/09 LAB: Hgb 11.5, Hct 33.4; Na 134, CO2 18, BUN 24, Creatinine 1.70, Glucose 140 11/09 UA: Clear, pH 8.5, 1+ Protein, 1+ Ketone. 11/09 Toxicology: Antidepressants 11/09 Serum Alcohol:<10 11/09 CXR & CT Brain: negative for acute processes 11/09 EKG: R 90 nsr, ST & T wave abnormality, consider anterolateral ischemia Treatment 11/09: Fall precautions, Neuro checks, Blood culture, Neuro Consult, O2 prn, IV Ativan 2 mg x1, IV Na Cl 1,000 ms @ 75 mls/hr q13H, IV Apresoline 10 mg x1 Please clarify which diagnosis is most appropriate: [ ] Hypertensive Emergency [ ] Hypertensive Urgency [ ] Other (please specify) [ ] Unable to determine (Template Last Revised: December 2020) Hypertensive Emergency MTDD
[2021-11-11 12:24] LABS: African American GFR (CKD) 85 (>60 ml/min/1.73 sqM); Anion Gap 8 mmol/L; Blood Urea Nitrogen 17 mg/dL (9-20); Calcium 8.6 mg/dL (8.4-10.2); Carbon Dioxide 17 mmol/L (22-30); Chloride 111 mmol/L (98-107); Glucose 107 mg/dL (74-99); Non-African American GFR(CKD) 74 (>60 ml/min/1.73 sqM); Potassium 3.4 mmol/L (3.5-5.1); Sodium 136 mmol/L (137-145)
[2021-11-11] MEDS: POTASSIUM CHLORIDE ER 20 MEQ TAB.ER PO SCH (13:17)
[2021-11-11] MEDS: ACETAMINOPHEN TAB 325 MG TAB PO PRN ×2 (13:20→19:58)
[2021-11-12] MEDS ORDERED: MAGNESIUM SULFATE-D5W PMX 1 GM in DEXTROSE/WATER 1 100ML.BAG IVPB ONE (01:22)
[2021-11-12] MEDS: SODIUM CHLORIDE 0.9% 1,000 ML IV SCH (06:40)
[2021-11-12 07:48] LABS: Basophils % (A) 0 %; Eosinophils # (A) 0.3 k/uL (0-0.7); Eosinophils % (A) 5 %; HCT 31.7 % (39.0-53.0); HGB 11.1 gm/dL (13.0-17.5); Lymphocytes # (A) 1.3 k/uL (1.0-4.8); Lymphocytes % (A) 21 %; MCH 34.2 pg (25.0-35.0); MCHC 34.8 g/dL (31.0-37.0); MCV 98.1 fL (80.0-100.0); Mean Platelet Volume 7.4; Monocytes # (A) 0.3 k/uL (0-1.0); Monocytes % (A) 5 %; Neutrophils # (A) 4.4 k/uL (1.3-7.7); Neutrophils % (A) 67 %; Platelet Count 221 k/uL (150-450); RBC 3.24 m/uL (4.30-5.90); WBC 6.5 k/uL (3.8-10.6)
[2021-11-12 08:05] LABS: African American GFR (CKD) >90 (>60 ml/min/1.73 sqM); Anion Gap 7 mmol/L; Blood Urea Nitrogen 12 mg/dL (9-20); Calcium 8.6 mg/dL (8.4-10.2); Carbon Dioxide 18 mmol/L (22-30); Chloride 112 mmol/L (98-107); Glucose 104 mg/dL (74-99); Non-African American GFR(CKD) 81 (>60 ml/min/1.73 sqM); Potassium 3.4 mmol/L (3.5-5.1); Sodium 137 mmol/L (137-145)
[2021-11-12] MEDS: DULoxetine HCL 60 MG CAPSULE.DR PO SCH (08:44)
[2021-11-12] MEDS: ATORVASTATIN 10 MG TAB PO SCH (08:44)
[2021-11-12] MEDS: POTASSIUM CHLORIDE ER 10 MEQ TAB.ER.PRT PO SCH (08:45)
[2021-11-12] MEDS: PANTOPRAZOLE 40 MG TABLET PO SCH (08:45)
[2021-11-12] MEDS: ASPIRIN 81 MG PO SCH (08:45)
[2021-11-12] MEDS: SIMETHICONE 80 MG CHEWABLE PO SCH ×4 (08:45→21:01)
[2021-11-12] MEDS: TAMSULOSIN 0.4 MG CAP.ER.24H PO SCH (08:45)
[2021-11-12] MEDS: FAMOTIDINE 20 MG TAB PO SCH (08:45)
[2021-11-12] MEDS: FLUDROCORTISONE 0.1 MG TAB PO SCH (08:45)
[2021-11-12] MEDS: amLODIPine 10 MG TAB PO SCH (08:45)
[2021-11-12] MEDS: QUEtiapine 100 MG TAB PO SCH ×2 (08:46→21:01)
--- NOTE | 2021-11-12 09:24 | XR ---
EXAMINATION TYPE: XR chest 1V portable DATE OF EXAM: 11/12/2021 CLINICAL HISTORY: Difficulty breathing progress study. History of aspiration. TECHNIQUE: Single AP portable frontal view of the chest is obtained. COMPARISON: Chest x-ray from 3 days earlier FINDINGS: Overlying sternal wires redemonstrated. Lungs remain clear. Cardiac silhouette size is sta ble and upper limits of normal. Osseous structures are intact. IMPRESSION: No acute pulmonary process. No significant change from prior.
--- NOTE | 2021-11-12 11:38 | P.PN ---
Subjective Progress Note Date: 11/12/21 The patient is seen at bedside and per nurse she stated he was doing well until he was eating and had shocking episode. But currently she stated he is doing well. Patient states he is feeling well. Pending clearance for MRI Brain. Objective - Vital Signs Vital signs: Vital Signs Temp 97.8 F 11/12/21 08:00 Pulse 101 H 11/12/21 08:00 Resp 16 11/12/21 08:00 BP 151/76 11/12/21 08:00 Pulse Ox 99 11/12/21 08:00 Intake & Output 11/11/21 11/12/21 11/12/21 18:59 06:59 18:59 Intake Total 600 Output Total 200 Balance 600 -200 Intake: Intake, IV Titration 600 Amount Sodium Chloride 0.9% 1, 600 000 ml @ 75 mls/hr IV . [id number] [facility] Rx#:[id number] Output: Urine 200 Other: Voiding Method Urinal Urinal Diaper Diaper Incontinent Incontinent # Voids 1 # Bowel Movements 1 - Exam GENERAL: The patient is lying in bed and is not in acute distress. NEUROLOGICAL: Higher mental function: The patient is awake, alert, oriented to self and time. He states he is in the hospital.. He is able to name objects correcty (pen and watch). .. Patient is following simple commands. No aphasia or neglect. Cranial nerves: The pupils are round, equal and reactive to light. Visual fiel ds are full to confrontation throughout. Extraocular movement is intact no nystagmus is noted. Facial sensation is normal to touch throughout. The facial strength is normal throughout. Hearing is severely decrease bilaterally to hand rub. Tongue is midline and moved [id number] without any difficulty. No dysarthria is noted. Shoulder shrug is normal bilaterally. Motor: Gait is deferred. The strength is left upper extremity is 4+ to 5-. Otherwise was lifting all extremities above gravity and not focality. Normal tone and bulk. Cerebellum: Normal finger to nose bilaterally. Sensation: Sensation is normal to touch throughout. Reflexes (right/left): 1+ throughout. Plantars are mute bilaterally. WORK-UP: Sodium is 134, Creatnine 1.7, glucose 140, calcium 9.8, AST, 41 and ALT 19. Ammonia level is less than 9. Vitamin B12 is 549 Serum Folate is a 12.4 TSH is 2.070 Urine analysis is negative for UTI. Urine drug screen is positive to tricylics.Otherwise not detected and serum alcohol is <10. Elaine virus PCR is not detected. CT of the head is reported as cerebral atrophy. No acute intracranial abnormality. Chronic small vessel ischemia. No change. I personally reviewed that a CT of the head and I agree with the finding. I feel the patient had generalized atrophy appropriate for his age. Bilateral carotid duplex on 11/10/21: Is reported as no evidence for hemodynamically significant stenosis. Routine EEG 11/10/2021: This was a normal routine EEG during sleep state. The entire study was captured during sleep. I cannot comment on the patient backg round since he was in a sleep state. Otherwise, there was no focal slowing, epileptiform discharges or seizure on the EEG. - Labs CBC & Chem 7: 11/12/21 06:48 11/12/21 06:48 Labs: Abnormal Lab Results - Last 24 Hours (Table) 11/11/21 11/12/21 11/12/21 Range/Units 11:17 06:48 06:48 RBC 3.24 L (4.30-5.90) m/uL Hgb 11.1 L (13.0-17.5) gm/dL Hct 31.7 L (39.0-53.0) % Sodium 136 L (137-145) mmol/L Potassium 3.4 L 3.4 L (3.5-5.1) mmol/L Chloride 111 H 112 H (98-107) mmol/L Carbon Dioxide 17 L 18 L (22-30) mmol/L Glucose 107 H 104 H (74-99) mg/dL Microbiology - Last 24 Hours (Table) 11/09/21 21:24 Blood Culture - Preliminary Blood No Growth after 48 hours 11/09/21 21:40 Blood Culture - Preliminary Blood No Growth after 48 hours Assessment and Plan Assessment: * Encephalopathy of unknown etiology. Patient has uncontrolled hypertension as high as 221/114 and one of the possibilities is uncontrolled hypertension can lead to an encephalopathy. On examination had left upper extremity weakness: Rule out stroke.--mentation is improving. * Hypertensive urgency---improving * Acute on chronic kidney insufficiency--resolved * History of syncopal episode * History of prostate cancer status post radiation * Partial small bowel obstruction status post laparotomy * History of CABG Plan: MRI of the brain is pending to rule out stroke. I will order rest of stroke work-up if positive for stroke. Currently on his home medication of ASA 81mg daily and Lipitor 10mg daily which is sufficient for secondary stroke prophylaxis at this time. Every 4 hours neuro checks We'll defer hypertension management to the primary team. We'll defer the rest of the medical management to the primary team The plan is discussed with the patient's nurse. Rodrigue Stuart M.D. Neuro-hospitalist Time with Patient: Less than 30
[2021-11-12] MEDS ORDERED: Potassium Replacement Protocol 1 EACH MISC MISCELLANE PRN (12:23)
[2021-11-12] MEDS ORDERED: Magnesium Replacement Protocol 1 EACH MISC MISCELLANE PRN (12:26)
--- NOTE | 2021-11-12 12:27 | P.PN ---
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 He had apparently been drinking and his family noticed him with nonsensical speaking so brought him in to the ED. On presentation his BP was 220/114, Hgb 11.5, Cr 1.7, trop negative, UA negative. CT head with no acute process. Pt given hydralazine with improvement in BP. 11-11-21 sensorium significantly improved. Evaluated by neurology and recommen dations noted and appreciated. Neuro workup in progress with MRI pending. Carotid Doppler study reported no hemodynamic significant stenosis. Norvasc added to med. regimen yesterday with blood pressures controlled. Denies chest pain, palpitations or shortness of breath. Denies lightheadedness dizziness or focal deficits. Labs pending. 11/12/2021 patient appeared to aspirate during breakfast, speech therapy consulted for further evaluation. Chest x-ray reported no acute pulmonary process, no significant change. Pain MRI pending clearance. Systolic blood pressures ranging in the 130s to the 150s. Maintaining O2 sats in the high 90s on room air. Denies chest pain, palpitations or shortness of breath. Afebrile, normal WBC, preliminary blood cultures no growth at 48 hours. Potassium 3.4. Objective - Vital Signs Vital signs: Vital Signs Temp 97.8 F 11/12/21 08:00 Pulse 101 H 11/12/21 08:00 Resp 16 11/12/21 08:00 BP 151/76 11/12/21 08:00 Pulse Ox 99 11/12/21 08:00 Intake & Output 11/11/21 11/12/21 11/12/21 18:59 06:59 18:59 Intake Total 600 Output Total 200 Balance 600 -200 Intake: Intake, IV Titration 600 Amount Sodium Chloride 0.9% 1, 600 000 ml @ 75 mls/hr IV . [id number] MYLA Rx#:[id number] Output: Urine 200 Other: Voiding Method Urinal Urinal Diaper Diaper Incontinent Incontinent # Voids 1 # Bowel Movements 1 - Exam General: Alert and oriented 3, Lying in bed, NAD. Vitals reviewed, Eyes: PERRL, EOMI, conjunctiva normal HENT: normocephalic, mucus membranes moist Neck: supple, no JVD Lungs: normal respiratory effort, no wheezes or rales CV: Regular rate and rhythm, no murmur. Peripheral pulses 2+ Abdomen: soft, nondistended, no organomegaly,+BS Skin: warm and dry. Neuro: No focal deficits. - Labs CBC & Chem 7: 11/12/21 06:48 11/12/21 06:48 Labs: Abnormal Lab Results - Last 24 Hours (Table) 11/11/21 11/12/21 11/12/21 Range/Units 11:17 06:48 06:48 RBC 3.24 L (4.30-5.90) m/uL Hgb 11.1 L (13.0-17.5) gm/dL Hct 31.7 L (39.0-53.0) % Sodium 136 L (137-145) mmol/L Potassium 3.4 L 3.4 L (3.5-5.1) mmol/L Chloride 111 H 112 H (98-107) mmol/L Carbon Dioxide 17 L 18 L (22-30) mmol/L Glucose 107 H 104 H (74-99) mg/dL Microbiology - Last 24 Hours (Table) 11/09/21 21:24 Blood Culture - Preliminary Blood No Growth after 48 hours 11/09/21 21:40 Blood Culture - Preliminary Blood No Growth after 48 hours Assessment and Plan Assessment: Acute encephalopathy secondary to hypertensive emergency, rule out CVA. Acute on chronic renal failure, stage III Anemia of chronic disease Gastroesophageal reflux disease CAD, history of CABG History of syncope Carcinoid syndrome Depression Hypokalemia Plan: Continue on current medication regime ,monitoring and symptomatic treatment. Potassium replacement protocol ordered, magnesium level ordered. Speech therapy consulted regarding potential aspiration. Aspiration precautions initiated. Neuro workup in progress, MRI auth.pending. The impression and plan of care has been dictated as directed. : I performed a history and examination of this patient, discussed the same with the dictator. I agree with the dictator's note ,documented as a scribe. Any additional findings or plans will be noted.
[2021-11-13] MEDS: SODIUM CHLORIDE 0.9% 1,000 ML IV SCH ×3 (08:55→20:27)
[2021-11-13] MEDS: ASPIRIN 81 MG PO SCH ×2 (09:18→10:24)
[2021-11-13] MEDS: amLODIPine 10 MG TAB PO SCH ×2 (09:18→10:25)
[2021-11-13 09:39] LABS: African American GFR (CKD) 72.6 (60.0-200.0); BUN/Creat Ratio 8.09 Ratio (12.00-20.00); Blood Urea Nitrogen 8.9 mg/dL (9.0-27.0); Calcium 8.8 mg/dL (8.7-10.3); Magnesium 1.9 mg/dL (1.5-2.4); Non-African American GFR(CKD) 62.6 (60.0-200.0); Potassium 3.3 mmol/L (3.5-5.5)
[2021-11-13] MEDS: PANTOPRAZOLE 40 MG TABLET PO SCH (09:49)
[2021-11-13] MEDS: SIMETHICONE 80 MG CHEWABLE PO SCH ×4 (10:23→20:27)
[2021-11-13] MEDS: QUEtiapine 100 MG TAB PO SCH ×2 (10:23→20:35)
[2021-11-13] MEDS: TAMSULOSIN 0.4 MG CAP.ER.24H PO SCH (10:23)
[2021-11-13] MEDS: FAMOTIDINE 20 MG TAB PO SCH (10:24)
[2021-11-13] MEDS: POTASSIUM CHLORIDE ER 10 MEQ TAB.ER.PRT PO SCH (10:24)
[2021-11-13] MEDS: DULoxetine HCL 60 MG CAPSULE.DR PO SCH (10:24)
[2021-11-13] MEDS: FLUDROCORTISONE 0.1 MG TAB PO SCH (10:24)
[2021-11-13] MEDS: ATORVASTATIN 10 MG TAB PO SCH (10:24)
[2021-11-13] MEDS: PANTOPRAZOLE 40 MG/10 ML VIAL IVP SCH ×2 (10:37→20:35)
--- NOTE | 2021-11-13 12:06 | P.CONS ---
History of Present Illness - Reason for Consult Consult date: 11/13/21 Esophageal stricture Requesting physician: Kenneth Luciano - Chief Complaint Altered mental status changes - History of Present Illness 80-year-old man who was brought into the emergency department on Tuesday for altered mental status changes. He been complaining is no difficulty with swallowing especially solids. Some pain exam with swallowing his liquids and pills. He has a history of a hiatal hernia and esophageal stricture. And 03/19/2021 and he underwent EGD with Dr. Uribe with findings of a paraesophageal hernia. He was then scheduled for repair hiatal hernia in July [address] Uribe however the procedure was aborted due to multiple adhesions. In December 2019 when he came in with food bolus and underwent EGD with removal of foreign body. During this admission he underwent a speech evaluation with findings of functional oropharyngeal swallow. Swallow difficulties appeared esophageal in nature demonstrating recurrent burping with complaints of sensation of residuals within the distal esophagus following by mouth 2. Findings were consistent with patient's history of esophageal stricture and GERD. Review of Systems REVIEW OF SYSTEMS: CARDIOPULMONARY: No chest pain or shortness of breath. Gastrointestinal: No abdominal pain. Difficulty with swallowing solids and some discomfort with liquids. No nausea or vomiting. No hematemesis, coffee-ground emesis. No rectal bleeding, or melena. GENITOURINARY: No dysuria or hematuria. MUSCULOSKELETAL: Reports normal range of motion., Joint pain. SKIN: No rashes. No jaundice. ENDOCRINE: No chills, fevers. No excessive weight gain or loss. No polydipsia or polyuria. PSYCHIATRIC: Unremarkable. NEUROLOGY: No change in mental status. Denies dizziness, headache. ENT: Vision unremarkable. CONSTITUTIONAL: No recent weight loss. No fever, chills, night sweats. 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 Past Anesthesia/Blood Transfusion Reactions: No Reported Reaction Past Psychological History: No Psychological Hx Reported Smoking Status: Former smoker, Light tobacco smoker - Past Family History Father Family Medical History: Myocardial Infarction (CO) Additional Family Medical History / Comment(s): Pt did not know his father but they were told he of a CO at the age of 42 yrs. Mother Family Medical History: Vascular Disorder Additional Family Medical History / Comment(s): Mother at age 68yrs, pt was told possible d/t ruptured aneurysm in her neck. Medications and Allergies Home Medications Medication Instructions Recorded Confirmed Type Aspirin EC [Ecotrin Low Dose] 81 mg PO DAILY 07/29/16 11/09/21 History Simvastatin [Zocor] 20 mg PO DAILY 04/21/19 11/09/21 History DULoxetine HCL [Cymbalta] 120 mg PO DAILY 04/04/20 11/09/21 History Loratadine [Claritin] 10 mg PO DAILY PRN 12/15/20 11/09/21 History Diphenox-Atrop 2.5-0.025 mg 2 tab PO QID PRN #24 tab 12/16/20 11/09/21 Rx [Lomotil] Octreotide Acetate,Mi-Spheres 10 mg IM Q21D 03/26/21 11/09/21 History [SandoSTATIN LAR [place]] Octreotide Acetate,Mi-Spheres 30 mg IM Q21D 03/26/21 11/09/21 History [SandoSTATIN LAR [place]] Omeprazole 40 mg PO DAILY 03/26/21 11/09/21 History Potassium Chloride ER [K-Dur 10] 10 meq PO DAILY 03/26/21 11/09/21 History QUEtiapine XR [SEROquel XR] 200 mg PO HS 03/26/21 11/09/21 History Acetaminophen Tab [Tylenol Tab] 500 - 1,000 mg PO Q6H PRN 11/09/21 11/09/21 History Dm/Acetaminophen/Doxylamine [Vicks 30 ml PO HS PRN 11/09/21 11/09/21 History Nyquil Cold-Flu Liquid] Famotidine [Pepcid] 20 mg PO DAILY 11/09/21 11/09/21 History Fludrocortisone [Florinef] 0.2 mg PO DAILY 11/09/21 11/09/21 History Ibuprofen [Motrin] 800 mg PO TID PRN 11/09/21 11/09/21 History Tamsulosin HCl [Flomax] 0.4 mg PO DAILY 11/09/21 11/09/21 History Testosterone Cypionate 100 mg IM Q28D 11/09/21 11/10/21 History [Depo-Testosterone] Triamcinolone Acetonide 1 spr EA NOSTRIL DAILY 11/09/21 11/09/21 History [Triamcinolone Acetonide 0.055MG Nasal] Ergocalciferol [Vitamin D2 (1250 1,250 mcg PO Q7D 11/10/21 11/10/21 History Mcg = 03055 Iu)] Montelukast [Singulair] 10 mg PO DAILY 11/10/21 11/10/21 History Allergies Allergy/AdvReac Type Severity Reaction Status Date / Time No Known Allergies Allergy Verified 06/17/21 07:20 Physical Exam Vitals: Vital Signs Temp Pulse Resp BP Pulse Ox 11/13/21 08:38 98 11/13/21 07:20 98.2 F 87 16 161/113 98 11/13/21 01:38 98.4 F 83 16 144/74 99 11/12/21 20:00 99 F 83 16 175/95 100 11/12/21 19:20 16 11/12/21 14:00 97.9 F 90 18 159/96 100 Intake and Output 11/12/21 11/13/21 11/13/21 22:59 06:59 14:59 Output Total 200 Balance -200 Output: Urine 200 Other: Voiding Method Urinal Diaper Incontinent # Voids 5 # Bowel Movements 0 General appearance: The patient is alert, oriented, appears in no acute distress. HET: Head is normocephalic and atraumatic. Conjunctiva pink. Sclera anicteric. Neck: Supple without lymphadenopathy. Trachea midline. Heart: S1 S2. Regular rate and rhythm. Lungs: Clear to auscultation. Abdomen: Soft, diffuse tenderness, greatest in the epigastric region, nondistended with bowel sounds. No guarding or rigidity. Skin: No rashes. No jaundice. Extremities: Normal skin color and turgor. No pedal edema. Neurological: No focal deficits. Alert and oriented x3. Results CBC & Chem 7: 11/12/21 06:48 11/13/21 05:46 Labs: Microbiology - Last 24 Hours (Table) 11/09/21 21:24 Blood Culture - Preliminary Blood No Growth after 72 hours 11/09/21 21:40 Blood Culture - Preliminary Blood No Growth after 72 hours Assessment and Plan (1) Dysphagia Narrative/Plan: 80-year-old male who presented to the emergency department with altered mental status changes several days ago. Also is here with complaints of difficulty with swallowing. He underwent a swallow evaluation that was showing esophageal dysmotility consistent with his history of esophageal stricture of recommending gastroenterology consult. Patient does have a history of esophageal stricture in the past as well as a food bolus for which he underwent an EGD in December 2020. In March 2021 he underwent an EGD which showed fair esophageal hiatal hernia for which he was supposed to undergo a hiatal hernia repair in May 2021. He had multiple adhesions so that was aborted. He is still having some difficulty with swallowing especially solids however became worse over the last few days duration. Will proceed with EGD tomorrow. Continue with Protonix 40 mg for GI prophylaxis. Current Visit: Yes Status: Acute Code(s): R13.10 - DYSPHAGIA, UNSPECIFIED SNOMED Code(s): 61724328 (2) GERD (gastroesophageal reflux disease) Current Visit: No Status: Acute Code(s): K21.9 - GASTRO-ESOPHAGEAL REFLUX DISEASE WITHOUT ESOPHAGITIS SNOMED Code(s): 681798863 (3) Hiatal hernia Current Visit: Yes Status: Acute Code(s): K44.9 - DIAPHRAGMATIC HERNIA WITHOUT OBSTRUCTION OR GANGRENE SNOMED Code(s): 10678012 Plan: 1. Continue symptomatic and supportive care 2. Continue ground diet, nothing by mouth after midnight 3. Protonix 40 mg daily 4. We'll plan for EGD tomorrow with possible esophageal dilation. The procedure discussed with patient including risks and benefits, patient is willing to proceed. Thank you for allowing us to participate in the care of the patient, the GI service will sign off, gastroenterology will not be available at the hospital this weekend and through next week. If further evaluation by gastroenterology is required the patient will need transfer as per the primary team's discretion. Dr. Shelton Gould I agree with the dictator's note, documented as a scribe by Teresa Glover.
--- NOTE | 2021-11-13 14:56 | MR ---
MRI brain without contrast. HISTORY: Left upper extremity weakness and confusion. COMPARISON: None. TECHNIQUE: Multiecho multiplanar images the brain were obtained FINDINGS: Exam is moderately limited by involuntary patient motion. On the T1-weighted sagittal images, the midline structures including the craniovertebral junction rel ationships and prevertebral soft tissues are normal. The ventricles, basal cisterns and sulci over convexities are moderately to markedly enlarged consist ent with moderate to marked atrophy. There is diffuse abnormal signal intensity in the periventricular white matter both cerebral hemisphe res consistent with moderate ischemic white matter demyelination event. The posterior fossa including the brainstem, fourth ventricle and cerebellar pontine angles are gross ly normal. Intraorbital contents appear normal and symmetric. Visualized paranasal sinuses are well aerated. The re is mild fluid in the left mastoid air cells. IMPRESSION: 1. Limited study as described above. 2. Moderate to marked atrophy and moderate ischemic white matter demyelination. 3. No acute ischemic event, mass effect or shift of the midline structures.
--- NOTE | 2021-11-13 15:39 | P.PN ---
Subjective Progress Note Date: 11/13/21 The patient is seen at bedside and he feels he is doing well today. Per nurse no issues today so far and pending MRI Brain to be done. Today he is suppose to get Endoscopy for his swallowing issues. Objective - Vital Signs Vital signs: Vital Signs Temp 98.2 F 11/13/21 07:20 Pulse 87 11/13/21 07:20 Resp 16 11/13/21 07:20 BP 161/113 11/13/21 07:20 Pulse Ox 98 11/13/21 08:38 Intake & Output 11/12/21 11/13/21 11/13/21 18:59 06:59 18:59 Output Total 200 Balance -200 Output: Urine 200 Other: Voiding Method Urinal Urinal Urinal Diaper Diaper Diaper Incontinent Incontinent Incontinent # Voids 5 # Bowel Movements 0 - Exam GENERAL: The patient is lying in bed and is not in acute distress. NEUROLOGICAL: Higher mental function: The patient is awake, alert, oriented to self and time. He states he is in the hospital.. He is able to name objects correcty (pen and watch). .. Patient is following simple commands. No aphasia or neglect. Cranial nerves: The pupils are round, equal and reactive to light. Visual laboy are full to confrontation throughout. Extraocular movement is intact no nystagmus is noted. Facial sensation is normal to touch throughout. The facial strength is normal throughout. Hearing is severely decrease bilaterally to hand rub. Tongue is midline and moved [id number] without any difficulty. No dysarthria is noted. Shoulder shrug is normal bilaterally. Motor: Gait is deferred. The strength is lifting all extremities above gravity and no focality noted. Normal tone and bulk. Cerebellum: Normal finger to nose bilaterally. Sensation: Sensation is normal to touch throughout. Reflexes (right/left): 1+ throughout. Plantars are mute bilaterally. WORK-UP: Sodium is 134, Creatnine 1.7, glucose 140, calcium 9.8, AST, 41 and ALT 19. Ammonia level is less than 9. Vitamin B12 is 549 Serum Folate is a 12.4 TSH is 2.070 Urine analysis is negative for UTI. Urine drug screen is positive to tricylics.Otherwise not detected and serum alcohol is <10. Elaine virus PCR is not detected. CT of the head is reported as cerebral atrophy. No acute intracranial abn ormality. Chronic small vessel ischemia. No change. I personally reviewed that a CT of the head and I agree with the finding. I feel the patient had generalized atrophy appropriate for his age. Bilateral carotid duplex on 11/10/21: Is reported as no evidence for hemodynamically significant stenosis. Routine EEG 11/10/2021: This was a normal routine EEG during sleep state. The entire study was captured during sleep. I cannot comment on the patient background since he was in a sleep state. Otherwise, there was no focal slowing, epileptiform discharges or seizure on the EEG. - Labs CBC & Chem 7: 11/12/21 06:48 11/13/21 05:46 Labs: Abnormal Lab Results - Last 24 Hours (Table) 11/13/21 Range/Units 05:46 Potassium 3.3 L (3.5-5.5) mmol/L Carbon Dioxide 19.0 L (20.0-27.5) mmol/L BUN 8.9 L (9.0-27.0) mg/dL BUN/Creatinine Ratio 8.09 L (12.00-20.00) Ratio Glucose 118 H (70-110) mg/dL Microbiology - Last 24 Hours (Table) 11/09/21 21:24 Blood Culture - Preliminary Blood No Growth after 72 hours 11/09/21 21:40 Blood Culture - Preliminary Blood No Growth after 72 hours Assessment and Plan Assessment: * Encephalopathy of unknown etiology. Patient has uncontrolled hypertension as high as 221/114 and one of the possibilities is uncontrolled hypertension can lead to an encephalopathy--mentation is improving. * Hypertensive urgency---improving * Acute on chronic kidney insufficiency--resolved * History of syncopal episode * History of prostate cancer status post radiation * Partial small bowel obstruction status post laparotomy * History of CABG Plan: MRI of the brain is pending to rule out stroke since was felt he had initially left upper extremity weakness. I will order rest of stroke work-up if positive for stroke. Currently on his home medication of ASA 81mg daily and Lipitor 10mg daily which is sufficient for secondary stroke prophylaxis at this time. Every 4 hours neuro checks We'll defer hypertension management to the primary team. We'll defer the rest of the medical management to the primary team. Recommend patient to follow-up with neurologist as outpatient within 2-3 weeks. The plan is discussed with the patient's nurse. UPDATE: MRI Brain w/o: Is reported as limited study. Moderate to marked atrophy and moderate ischemic white matter demyelination. No acute ischemic event, mass effect or shift of the midline structure. I personally reviewed MRI and agree with report. There is no further neurological work-up. Neurology will sign off. Please reconsult if needed. Rodrigue Stuart M.D. Neuro-hospitalist Time with Patient: Less than 30
--- NOTE | 2021-11-13 17:29 | P.PN ---
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 He had apparently been drinking and his family noticed him with nonsensical speaking so brought him in to the ED. On presentation his BP was 220/114, Hgb 11.5, Cr 1.7, trop negative, UA negative. CT head with no acute process. Pt given hydralazine with improvement in BP. 11-11-21 sensorium significantly improved. Evaluated by neurology and recommen dations noted and appreciated. Neuro workup in progress with MRI pending. Carotid Doppler study reported no hemodynamic significant stenosis. Norvasc added to med. regimen yesterday with blood pressures controlled. Denies chest pain, palpitations or shortness of breath. Denies lightheadedness dizziness or focal deficits. Labs pending. 11/12/2021 patient appeared to aspirate during breakfast, speech therapy consulted for further evaluation. Chest x-ray reported no acute pulmonary process, no significant change. Pain MRI pending clearance. Systolic blood pressures ranging in the 130s to the 150s. Maintaining O2 sats in the high 90s on room air. Denies chest pain, palpitations or shortness of breath. Afebrile, normal WBC, preliminary blood cultures no growth at 48 hours. Potassium 3.4. 11/13/2021 neurology workup in progress, MRI pending. Evaluated by speech therapy yesterday, swallowing difficulties appeared esophageal in nature, recurrent burping and complains of sensation of residuals within the distal esophagus following by mouth attempts consistent with patient's history of esophageal stricture and gastroesophageal reflux disease. GI consulted secondary to esophageal stricture for further workup. Objective - Vital Signs Vital signs: Vital Signs Temp 98.2 F 11/13/21 07:20 Pulse 87 11/13/21 07:20 Resp 16 11/13/21 07:20 BP 161/113 11/13/21 07:20 Pulse Ox 99 11/13/21 16:13 Intake & Output 11/12/21 11/13/21 11/13/21 18:59 06:59 18:59 Output Total 200 Balance -200 Output: Urine 200 Other: Voiding Method Urinal Urinal Urinal Diaper Diaper Diaper Incontinent Incontinent Incontinent # Voids 5 # Bowel Movements 0 - Exam General: Alert and oriented 3, Lying in bed, NAD. Vitals reviewed, Eyes: PERRL, EOMI, conjunctiva normal HENT: normocephalic, mucus membranes moist Neck: supple, no JVD Lungs: normal respiratory effort, no wheezes or rales CV: Regular rate and rhythm, no murmur. Peripheral pulses 2+ Abdomen: soft, nondistended, minimal epigastric tenderness, no organomegaly,+BS Skin: warm and dry. Neuro: No focal deficits. - Labs CBC & Chem 7: 11/12/21 06:48 11/13/21 05:46 Labs: Abnormal Lab Results - Last 24 Hours (Table) 11/13/21 Range/Units 05:46 Potassium 3.3 L (3.5-5.5) mmol/L Carbon Dioxide 19.0 L (20.0-27.5) mmol/L BUN 8.9 L (9.0-27.0) mg/dL BUN/Creatinine Ratio 8.09 L (12.00-20.00) Ratio Glucose 118 H (70-110) mg/dL Microbiology - Last 24 Hours (Table) 11/09/21 21:24 Blood Culture - Preliminary Blood No Growth after 72 hours 11/09/21 21:40 Blood Culture - Preliminary Blood No Growth after 72 hours Assessment and Plan Assessment: Acute encephalopathy secondary to hypertensive emergency, rule out CVA. Acute on chronic renal failure, stage III Dysphagia, in a patient with history of esophageal stricture Anemia of chronic disease Gastroesophageal reflux disease CAD, history of CABG History of syncope Carcinoid syndrome Depression Hypokalemia Plan: Continue on current medication regime ,monitoring and symptomatic treatment. Maintain PPI. GI consulted for EGD with possible esophageal dilatation. MRI pending. Potassium 3.3, to be supplemented with replacement protocol previously ordered. Discharge planning in progress for tomorrow pending completion of neuro and GI workup. The impression and plan of care has been dictated as directed. : I performed a history and examination of this patient, discussed the same with the dictator. I agree with the dictator's note ,documented as a scribe. Any additional findings or plans will be noted.
[2021-11-13] MEDS ORDERED: LIDOCAINE 1% (10MG/ML) FOR IV START INTRADERMA PRN (19:08)
[2021-11-13] MEDS: LACTATED RINGERS 1,000 ML IV SCH (19:19)
[2021-11-14] MEDS: amLODIPine 10 MG TAB PO SCH (07:37)
[2021-11-14] MEDS: PANTOPRAZOLE 40 MG/10 ML VIAL IVP SCH ×2 (07:37→21:19)
[2021-11-14] MEDS: FAMOTIDINE 20 MG TAB PO SCH (07:37)
[2021-11-14 08:13] LABS: African American GFR (CKD) 73 (>60 ml/min/1.73 sqM); Anion Gap 8 mmol/L; Blood Urea Nitrogen 13 mg/dL (9-20); Calcium 9.3 mg/dL (8.4-10.2); Carbon Dioxide 20 mmol/L (22-30); Chloride 110 mmol/L (98-107); Glucose 123 mg/dL (74-99); Non-African American GFR(CKD) 63 (>60 ml/min/1.73 sqM); Potassium 3.3 mmol/L (3.5-5.1); Sodium 138 mmol/L (137-145)
[2021-11-14] MEDS ORDERED: SODIUM CHLORIDE 0.9% 500 ML 500 ML IV ONE ×2 (08:23)
--- NOTE | 2021-11-14 09:02 | P.PCN ---
Date of Procedure: 11/14/21 Procedure(s) Performed: BRIEF HISTORY: Patient is a 80-year-old, pleasant, white male admitted hospital with progressive dysphagia to solids and liquids for the last 1 month duration. He had an esophageal foreign body in December 2020 for which she underwent an upper endoscopy by Dr. Graham and was noted to have a tortuous esophagus that was dilated with a possible distal esophageal diverticulum.. The patient up and he had esophageal surgery at [facility] many years ago and details are not available at this time. PROCEDURE PERFORMED: Esophagogastroduodenoscopy with foreign body removal. PREOPERATIVE DIAGNOSIS: Progressive dysphagia to solids and liquids of 1 month duration. IV sedation per anesthesia. PROCEDURE: After informed consent was obtained, the patient was brought into the endoscopy unit. IV sedation was administered by Anesthesia under continuous monitoring. Initially the Olympus GIF-140 video endoscope was inserted into the mouth. Esophagus intubated without any difficulty. The esophagus was dilated tortuous and was completely filled with solid food. Gently using the Barraza net I was able to remove some of the food particles. Subsequently I was gradually able to advance the scope through the food into the distal esophagus and finally into the stomach. It was gradually advanced into the stomach and duodenum and carefully examined. The bulb and the second part of the duodenum appeared normal. The scope at this time was withdrawn to the stomach, adequately insufflated with air, and upon careful examination, mucosa of the antrum, body, cardia and the fundus appeared normal. The scope was then withdrawn into the esophagus. The GE junction was located at 42 cm from the incisors. It appeared that an acute angulation with a large distal esophageal diverticulum that was completely filled with food articles. At this time the scope I pushed the entire food particles from the esophagus into the stomach and took almost 30 minutes. Following this the esophagus was carefully examined. It was very tortuous especially in the distal esophagus with the GE junction was located at an acute angulation causing a functional obstruction. Vitamin this area there was a large esophageal diverticulum noted. The proximal esophagus appeared normal. Ther patient tolerated the procedure well. IMPRESSION: 1. Dilated tortuous esophagus which was completely filled with solid food. 2. GE junction was very angulated with a large distal esophageal diverticulum n oted filled with food causing functional distal esophageal obstruction 3. Severe esophageal dysmotility 4. All the food in the esophagus was pushed into the stomach withscope RECOMMENDATIONS: The findings of this examination were discussed with the patient .. At this time will be on a full liquid diet. Advised not to consume any solid food because of the severe esophageal dysmotility. He will follow up in office in 2 weeks and will discuss further options either having the PEG tube for feeding or referred him to defer hospital for consideration of surgical intervention.
[2021-11-14] MEDS: FLUDROCORTISONE 0.1 MG TAB PO SCH (09:24)
[2021-11-14] MEDS: QUEtiapine 100 MG TAB PO SCH ×2 (09:24→21:19)
[2021-11-14] MEDS: POTASSIUM CHLORIDE ER 10 MEQ TAB.ER.PRT PO SCH (09:24)
[2021-11-14] MEDS: ATORVASTATIN 10 MG TAB PO SCH (09:24)
[2021-11-14] MEDS: ASPIRIN 81 MG PO SCH (09:24)
[2021-11-14] MEDS: DULoxetine HCL 60 MG CAPSULE.DR PO SCH (09:24)
[2021-11-14] MEDS: SIMETHICONE 80 MG CHEWABLE PO SCH ×4 (09:25→21:19)
[2021-11-14] MEDS: TAMSULOSIN 0.4 MG CAP.ER.24H PO SCH (09:25)
[2021-11-14] MEDS: POTASSIUM CHLORIDE 10 MEQ in WATER FOR INJECTION 1 100ML.BAG IVPB SCH ×4 (14:21→17:35)
[2021-11-14] MEDS: SODIUM CHLORIDE 0.9% 1,000 ML IV SCH (14:25)
[2021-11-14] MEDS: ACETAMINOPHEN TAB 325 MG TAB PO PRN ×2 (16:17→21:19)
[2021-11-14] MEDS: LACTATED RINGERS 1,000 ML IV SCH (16:17)
--- NOTE | 2021-11-14 23:45 | P.PN ---
Subjective Progress Note Date: 11/14/21 11/14/2021 Patient evaluated today s/p EGD with severe esophageal dysmotility and a large distal esophageal diverticulum noted that was filled with food. Patient recommended for full liquid diet only and to follow up in the office with Dr Gould in 2 weeks for evaluation for PEG tube placement. Brain MRI completed yesterday shows moderate to marked atrophy and moderate ischemic white matter demyelination, no acute ischemic event, mass effect, or midline shift. No evidence for acute stroke per neurology and recommended to follow up with neurologist in 2 weeks. He is to continue on aspirin 81 mg po daily and lipitor 10 mg po daily. Patient is recommended for subacute rehab on discharge as not safe for return home alone due to high risk for falls with periods of confusion although alert and oriented. Labs today; hgb 11.1, sodium 138, potassium 3.3, chloride 110, co2 20, BUN 13, creat 1.09, glucose 123. Plan is for [facility] on tuesday. ROS Constitutional: Denied any fatigue denied any fever. Cardio vascular: denied any chest pain, palpitations Gastrointestinal denied any nausea vomiting, denies diarrhea Pulmonary: Denied any shortness of breath cough Neurologic denied any new focal deficits All inpatient medications were reviewed and appropriate changes in these medications as dictated in the interval history and assessment and plan. PHYSICAL EXAMINATION: GENERAL: The patient is alert and oriented x3, not in any acute distress. Well developed, well nourished. HEENT: Pupils are round and equally reacting to light. EOMI. No scleral icterus. No conjunctival pallor. Normocephalic, atraumatic. No pharyngeal erythema. No thyromegaly. CARDIOVASCULAR: S1 and S2 present. No murmurs, rubs, or gallops. PULMONARY: Chest is clear to auscultation, no wheezing or crackles. ABDOMEN: Soft, nontender, nondistended, normoactive bowel sounds. No palpable organomegaly. MUSCULOSKELETAL: No joint swelling or deformity. EXTREMITIES: No cyanosis, clubbing, or pedal edema. NEUROLOGICAL: Gross neurological examination did not reveal any focal deficits. SKIN: No rashes. Assessment and plan Assessment Acute encephalopathy secondary to hypertensive emergency, CVA ruled out, mentation improving Acute on chronic renal failure, stage III, creatinine now 1.09 Hypokalemia due to poor oral intake Non anion gap metabolic acidosis secondary to kidney disease and dehydration Dysphagia, in a patient with history of esophageal stricture and tortuous esophagus s/p EGD findings discussed above, now on full liquid diet Anemia of chronic disease Gastroesophageal reflux disease CAD, history of CABG History of syncope Depression Hypokalemia GI Prophylaxis DVT Prophylaxis Pepcid FULL CODE Plan Continue IV fluids Replace potassium Full liquid diet [facility] on discharge tuesday Repeat labs in AM Prognosis guarded Objective - Vital Signs Vital signs: Vital Signs Temp 97.7 F 11/14/21 14:00 Pulse 93 11/14/21 14:00 Resp 16 11/14/21 14:00 BP 159/96 11/14/21 14:00 Pulse Ox 97 11/14/21 14:00 Intake & Output 11/13/21 11/14/21 11/14/21 18:59 06:59 18:59 Intake Total 250 200 Balance 250 200 Intake: IV 200 Oral 250 Other: Voiding Method Urinal Urinal Diaper Diaper Incontinent Incontinent # Voids 2 3 - Labs CBC & Chem 7: 11/12/21 06:48 11/14/21 06:02 Labs: Abnormal Lab Results - Last 24 Hours (Table) 11/14/21 Range/Units 06:02 Potassium 3.3 L (3.5-5.1) mmol/L Chloride 110 H (98-107) mmol/L Carbon Dioxide 20 L (22-30) mmol/L Glucose 123 H (74-99) mg/dL Microbiology - Last 24 Hours (Table) 11/09/21 21:40 Blood Culture - Preliminary Blood No Growth after 96 hours 11/09/21 21:24 Blood Culture - Preliminary Blood No Growth after 96 hours
[2021-11-15] MEDS: SODIUM CHLORIDE 0.9% 1,000 ML IV SCH ×2 (04:25→13:31)
[2021-11-15] MEDS: ACETAMINOPHEN TAB 325 MG TAB PO PRN ×2 (08:31→21:13)
[2021-11-15] MEDS: PANTOPRAZOLE 40 MG/10 ML VIAL IVP SCH ×2 (08:31→21:13)
[2021-11-15] MEDS: FLUDROCORTISONE 0.1 MG TAB PO SCH (08:31)
[2021-11-15] MEDS: ASPIRIN 81 MG PO SCH (08:31)
[2021-11-15] MEDS: SIMETHICONE 80 MG CHEWABLE PO SCH ×4 (08:31→21:13)
[2021-11-15] MEDS: POTASSIUM CHLORIDE ER 10 MEQ TAB.ER.PRT PO SCH (08:32)
[2021-11-15] MEDS: ATORVASTATIN 10 MG TAB PO SCH (08:32)
[2021-11-15] MEDS: QUEtiapine 100 MG TAB PO SCH ×2 (08:32→21:13)
[2021-11-15] MEDS: DULoxetine HCL 60 MG CAPSULE.DR PO SCH (08:32)
[2021-11-15] MEDS: FAMOTIDINE 20 MG TAB PO SCH (08:32)
[2021-11-15] MEDS: amLODIPine 10 MG TAB PO SCH (08:32)
[2021-11-15] MEDS: TAMSULOSIN 0.4 MG CAP.ER.24H PO SCH (08:32)
[2021-11-15 11:27] LABS: African American GFR (CKD) 78 (>60 ml/min/1.73 sqM); Anion Gap 9 mmol/L; Blood Urea Nitrogen 10 mg/dL (9-20); Calcium 8.9 mg/dL (8.4-10.2); Carbon Dioxide 18 mmol/L (22-30); Chloride 111 mmol/L (98-107); Glucose 200 mg/dL (74-99); Non-African American GFR(CKD) 67 (>60 ml/min/1.73 sqM); Sodium 138 mmol/L (137-145)
[2021-11-15 11:33] LABS: Potassium 3.8 mmol/L (3.5-5.1)
--- NOTE | 2021-11-15 15:08 | P.PN ---
Subjective Progress Note Date: 11/15/21 11/14/2021 Patient evaluated today s/p EGD with severe esophageal dysmotility and a large distal esophageal diverticulum noted that was filled with food. Patient recommended for full liquid diet only and to follow up in the office with Dr Gould in 2 weeks for evaluation for PEG tube placement. Brain MRI completed yesterday shows moderate to marked atrophy and moderate ischemic white matter demyelination, no acute ischemic event, mass effect, or midline shift. No evidence for acute stroke per neurology and recommended to follow up with neurologist in 2 weeks. He is to continue on aspirin 81 mg po daily and lipitor 10 mg po daily. Patient is recommended for subacute rehab on discharge as not safe for return home alone due to high risk for falls with periods of confusion although alert and oriented. Labs today; hgb 11.1, sodium 138, potassium 3.3, chloride 110, co2 20, BUN 13, creat 1.09, glucose 123. Plan is for [facility] on tuesday. 11/15/2021 Patient evaluated today in the restroom. No acute events overnight, tolerating diet well. Neurological status appears baseline, pt alert and oriented. Denies pain. Plan is for rehab tomorrow for discharge. Sodium today 138, potassium 3.8, chloride 111, CO2 18, BUN 10, creatinine 1.04, blood sugar 200. Afebrile, heart rate 93, blood pressure 147/78 and he is 97% on room air. Patient does have positive I's and O's with oral intake 1300 mLS in the last 24 hours. Continue with full liquid diet. Dr Luciano will resume care of patient tomorrow. ROS Constitutional: Denied any fatigue denied any fever. Cardio vascular: denied any chest pain, palpitations Gastrointestinal denied any nausea vomiting, denies diarrhea Pulmonary: Denied any shortness of breath cough Neurologic denied any new focal deficits All inpatient medications were reviewed and appropriate changes in these medications as dictated in the interval history and assessment and plan. PHYSICAL EXAMINATION: GENERAL: The patient is alert and oriented x3, not in any acute distress. Well developed, well nourished. HEENT: Pupils are round and equally reacting to light. EOMI. No scleral icterus. No conjunctival pallor. Normocephalic, atraumatic. No pharyngeal erythema. No thyromegaly. CARDIOVASCULAR: S1 and S2 present. No murmurs, rubs, or gallops. PULMONARY: Chest is clear to auscultation, no wheezing or crackles. ABDOMEN: Soft, nontender, nondistended, normoactive bowel sounds. No palpable organomegaly. MUSCULOSKELETAL: No joint swelling or deformity. EXTREMITIES: No cyanosis, clubbing, or pedal edema. NEUROLOGICAL: Gross neurological examination did not reveal any focal deficits. SKIN: No rashes. Assessment and plan Assessment Acute encephalopathy secondary to hypertensive emergency, CVA ruled out, mentation improving Acute on chronic renal failure, stage III, creatinine now 1.04 Hypokalemia due to poor oral intake, improving Non anion gap metabolic acidosis secondary to kidney disease and dehydration Dysphagia, in a patient with history of esophageal stricture and tortuous esophagus s/p EGD findings discussed above, now on full liquid diet Anemia of chronic disease Gastroesophageal reflux disease CAD, history of CABG History of syncope Depression Hypokalemia GI Prophylaxis DVT Prophylaxis Pepcid FULL CODE Plan Continue IV fluids Replace potassium Full liquid diet [facility] on discharge tuesday Prognosis guarded Objective - Vital Signs Vital signs: Vital Signs Temp 98.4 F 11/15/21 13:26 Pulse 93 11/15/21 13:26 Resp 17 11/15/21 13:26 BP 147/78 11/15/21 13:26 Pulse Ox 97 11/15/21 13:26 Intake & Output 11/14/21 11/15/21 11/15/21 18:59 06:59 18:59 Intake Total 1220 300 Output Total 450 Balance 770 300 Intake: IV 200 Intake, IV Titration 300 Amount Sodium Chloride 0.9% 1, 300 000 ml @ 75 mls/hr IV . [id number] [facility] Rx#:[id number] Oral 1020 Output: Urine 450 Other: Voiding Method Urinal Diaper Diaper Incontinent Incontinent # Voids 3 - Labs CBC & Chem 7: 11/12/21 06:48 11/15/21 10:36 Labs: Abnormal Lab Results - Last 24 Hours (Table) 11/15/21 Range/Units 10:36 Chloride 111 H (98-107) mmol/L Carbon Dioxide 18 L (22-30) mmol/L Glucose 200 H (74-99) mg/dL Microbiology - Last 24 Hours (Table) 11/09/21 21:24 Blood Culture - Preliminary Blood No Growth after 120 hours 11/09/21 21:40 Blood Culture - Preliminary Blood No Growth after 120 hours
[2021-11-15 16:30] LABS: Glucose,Whole Blood 107 mg/dL (75-99)
[2021-11-15] MEDS: INSULIN ASPART (NovoLOG) 100 UNIT/ML VIAL SQ SCH ×2 (16:31→22:00)
[2021-11-15] MEDS: LACTATED RINGERS 1,000 ML IV SCH (16:31)
[2021-11-15 20:23] LABS: Glucose,Whole Blood 99 mg/dL (75-99)
[2021-11-16] MEDS: SODIUM CHLORIDE 0.9% 1,000 ML IV SCH (06:04)
[2021-11-16 07:08] LABS: Glucose,Whole Blood 122 mg/dL (75-99)
[2021-11-16] MEDS: INSULIN ASPART (NovoLOG) 100 UNIT/ML VIAL SQ SCH ×2 (07:14→12:02)
[2021-11-16] MEDS: ATORVASTATIN 10 MG TAB PO SCH (08:13)
[2021-11-16] MEDS: ASPIRIN 81 MG PO SCH (08:13)
[2021-11-16] MEDS: amLODIPine 10 MG TAB PO SCH (08:13)
[2021-11-16] MEDS: TAMSULOSIN 0.4 MG CAP.ER.24H PO SCH (08:13)
[2021-11-16] MEDS: FAMOTIDINE 20 MG TAB PO SCH (08:14)
[2021-11-16] MEDS: SIMETHICONE 80 MG CHEWABLE PO SCH (08:14)
[2021-11-16] MEDS: QUEtiapine 100 MG TAB PO SCH (08:14)
[2021-11-16] MEDS: DULoxetine HCL 60 MG CAPSULE.DR PO SCH (08:14)
[2021-11-16] MEDS: PANTOPRAZOLE 40 MG/10 ML VIAL IVP SCH (08:14)
[2021-11-16] MEDS: FLUDROCORTISONE 0.1 MG TAB PO SCH (08:14)
[2021-11-16 09:18] VITALS: BP 138/78; PULSE 84; RESP 18; TEMP 98.4
--- NOTE | 2021-11-16 11:15 | P.DS ---
Providers Date of admission: 11/10/21 12:39 Expected date of discharge: 11/16/21 Attending physician: Kenneth Luciano MD Consults: 11/10/21 02:56 Consult Physician Urgent Consulting Provider: Rodrigue Stuart Consult Reason/Comments: Altered mental status/acute delirium Do you want consulting provider notified?: Yes 11/12/21 14:53 Consult Physician Routine Consulting Provider: Joanna Gould Consult Reason/Comments: esophageal stricture Do you want consulting provider notified?: Yes Primary care physician: Gail Tidwell Hospital Course: Acute encephalopathy secondary to hypertensive emergency, CVA ruled out, sensorium significantly improved. Acute on chronic renal failure, stage III, creatinine 1.04 Progressive Dysphagia, in a patient with history of esophageal stricture. EGD reporting severe esophageal dysmotility; no solid foods. 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 He had apparently been drinking and his family noticed him with nonsensical speaking so brought him in to the ED. On presentation his BP was 220/114, Hgb 11.5, Cr 1.7, trop negative, UA negative. CT head with no acute process. Pt given hydralazine with improvement in BP. 11-11-21 sensorium significantly improved. Evaluated by neurology and recommendations noted and appreciated. Neuro workup in progress with MRI pending. Carotid Doppler study reported no hemodynamic significant stenosis. Norvasc added to med. regimen yesterday with blood pressures controlled. Denies chest pain, palpitations or shortness of breath. Denies lightheadedness dizziness or focal deficits. Labs pending. 11/12/2021 patient appeared to aspirate during breakfast, speech therapy consulted for further evaluation. Chest x-ray reported no acute pulmonary process, no significant change. Pain MRI pending clearance. Systolic blood pressures ranging in the 130s to the 150s. Maintaining O2 sats in the high 90s on room air. Denies chest pain, palpitations or shortness of breath. Afebrile, normal WBC, preliminary blood cultures no growth at 48 hours. Potassium 3.4. 11/13/2021 neurology workup in progress, MRI pending. Evaluated by speech therapy yesterday, swallowing difficulties appeared esophageal in nature, recurrent burping and complains of sensation of residuals within the distal esophagus following by mouth attempts consistent with patient's history of esophageal stricture and gastroesophageal reflux disease. GI consulted secondary to esophageal stricture for further workup. Brain MRI completed reporting limited study, moderate to marked atrophy and moderate ischemic white matter demyelination, no acute ischemic event, mass effect or shift of the midline structures-no evidence for acute stroke per neurology. Cleared by neurology for discharge. Patient underwent EGD with GI reporting dilated tortuous esophagus completely filled with solid food, GE junction. He ambulated with large distal esophageal diverticulum noted with food causing functional distal esophageal obstruction, severe esophageal dysmotility. At this time GI recommends. Liquid diet, no solid food secondary to severe esophageal dysmotility. Patient has been advised to follow-up with GI in 2 weeks to discuss further options including potential PEG tube. Significant clinical improvement. Maintain strict aspiration precautions. Patient will be discharged to [facility] today in stable condition with guarded prognosis. The impression and plan of care has been dictated as directed. : I performed a history and examination of this patient, discussed the same with the dictator. I agree with the dictator's note ,documented as a scribe. Any additional findings or plans will be noted. Patient Condition at Discharge: Stable Plan - Discharge Summary New Discharge Prescriptions: New amLODIPine [Norvasc] 10 mg PO DAILY tab Pantoprazole Sodium [Protonix] 40 mg PO BID #60 tab Simethicone Chew [Mylicon Chew] 80 mg PO QID tab QUEtiapine [SEROquel] 100 mg PO BID tab Acetaminophen Tab [Tylenol] 650 mg PO Q6HR PRN tab PRN Reason: Mild Pain Or Fever > 100.5 Continue Aspirin EC [Ecotrin Low Dose] 81 mg PO DAILY Simvastatin [Zocor] 20 mg PO DAILY DULoxetine HCL [Cymbalta] 120 mg PO DAILY Loratadine [Claritin] 10 mg PO DAILY PRN PRN Reason: Allergy Symptoms Octreotide Acetate,Mi-Spheres [SandoSTATIN [place]AR [place]] 30 mg IM Q21D Octreotide Acetate,Mi-Spheres [SandoSTATIN LAR [place]] 10 mg IM Q21D Famotidine [Pepcid] 20 mg PO DAILY Fludrocortisone [Florinef] 0.2 mg PO DAILY Triamcinolone Acetonide [Triamcinolone Acetonide 0.055MG Nasal] 1 spr EA NOSTRIL DAILY Testosterone Cypionate [Depo-Testosterone] 100 mg IM Q28D Tamsulosin HCl [Flomax] 0.4 mg PO DAILY Dm/Acetaminophen/Doxylamine [Vicks Nyquil Cold-Flu Liquid] 30 ml PO HS PRN PRN Reason: sleep Montelukast [Singulair] 10 mg PO DAILY Ergocalciferol [Vitamin D2 (1250 Mcg = 32638 Iu)] 1,250 mcg PO Q7D Potassium Chloride ER [K-Dur 10] 10 meq PO DAILY Discontinued Diphenox-Atrop 2.5-0.025 mg [Lomotil] 2 tab PO QID PRN #24 tab PRN Reason: Diarrhea QUEtiapine XR [SEROquel XR] 200 mg PO HS Acetaminophen Tab [Tylenol Tab] 500 - 1,000 mg PO Q6H PRN PRN Reason: Pain Or Fever > 100.5 Ibuprofen [Motrin] 800 mg PO TID PRN PRN Reason: Pain Or Fever > 100.5 Omeprazole 40 mg PO DAILY Discharge Medication List Aspirin EC [Ecotrin Low Dose] 81 mg PO DAILY 07/29/16 [History] Simvastatin [Zocor] 20 mg PO DAILY 04/21/19 [History] DULoxetine HCL [Cymbalta] 120 mg PO DAILY 04/04/20 [History] Loratadine [Claritin] 10 mg PO DAILY PRN 12/15/20 [History] Octreotide Acetate,Mi-Spheres [SandoSTATIN [place]AR [place]] 10 mg IM Q21D 03/26/21 [History] Octreotide Acetate,Mi-Spheres [SandoSTATIN [place]AR [place]] 30 mg IM Q21D 03/26/21 [History] Potassium Chloride ER [K-Dur 10] 10 meq PO DAILY 03/26/21 [History] Dm/Acetaminophen/Doxylamine [Vicks Nyquil Cold-Flu Liquid] 30 ml PO HS PRN 11/09/21 [History] Famotidine [Pepcid] 20 mg PO DAILY 11/09/21 [History] Fludrocortisone [Florinef] 0.2 mg PO DAILY 11/09/21 [History] Tamsulosin HCl [Flomax] 0.4 mg PO DAILY 11/09/21 [History] Testosterone Cypionate [Depo-Testosterone] 100 mg IM Q28D 11/09/21 [History] Triamcinolone Acetonide [Triamcinolone Acetonide 0.055MG Nasal] 1 spr EA NOSTRIL DAILY 11/09/21 [History] Ergocalciferol [Vitamin D2 (1250 Mcg = 47343 Iu)] 1,250 mcg PO Q7D 11/10/21 [History] Montelukast [Singulair] 10 mg PO DAILY 11/10/21 [History] Acetaminophen Tab [Tylenol] 650 mg PO Q6HR PRN tab 11/16/21 [Rx] Pantoprazole Sodium [Protonix] 40 mg PO BID #60 tab 11/16/21 [Rx] QUEtiapine [SEROquel] 100 mg PO BID tab 11/16/21 [Rx] Simethicone Chew [Mylicon Chew] 80 mg PO QID tab 11/16/21 [Rx] amLODIPine [Norvasc] 10 mg PO DAILY tab 11/16/21 [Rx] Follow up Appointment(s)/Referral(s): [facility], [NON-STAFF] - As Needed Joanna Gould MD [STAFF PHYSICIAN] - 1 Week Kenneth Luciano MD [STAFF PHYSICIAN] - 1 Week (After discharge from subacute rehab) Patient Instructions/Handouts: Fall Prevention (DC) Activity/Diet/Wound Care/Special Instructions: [facility] Cardiac: Full liquid, No solids. Strict aspiration precautions. Boosts/ensure supplements TID between meals and QHS Discharge Disposition: TRANSFER TO SNF/ECF
[2021-11-16 11:53] LABS: Glucose,Whole Blood 123 mg/dL (75-99)
[2021-11-16] MEDS: POTASSIUM CHLORIDE ER 10 MEQ TAB.ER.PRT PO SCH (12:01)
[2021-11-16 13:29] VITALS: BMI 24.3
== END 2021-11-16 14:44 | disposition home health service (06) | DRG 305 ==
LOC: EC 20:41 → 4SSUR 11-10 02:55 → OBSVTOIN 11-10 12:39 → 4SSUR 11-10 16:12
PROVIDERS: ADMIT Family Medicine; ATTEND Family Medicine
PROC: 0DC58ZZ Extirpation of Matter from Esophagus, Via Natural or Artificial Opening Endoscopic (ICD-10-PCS; principal; 2021-11-14 08:15)
DX: I16.1 Hypertensive emergency (principal); I67.4 Hypertensive encephalopathy; E34.0 Carcinoid syndrome; I67.82 Cerebral ischemia; N17.9 Acute kidney failure, unspecified; E87.2 Acidosis; K22.2 Esophageal obstruction; D63.1 Anemia in chronic kidney disease; T18.128A Food in esophagus causing other injury, initial encounter; E11.22 Type 2 diabetes mellitus with diabetic chronic kidney disease; G31.9 Degenerative disease of nervous system, unspecified; N18.30 Chronic kidney disease, stage 3 unspecified; Z20.822 Contact with and (suspected) exposure to COVID-19; I12.9 Hypertensive chronic kidney disease with stage 1 through stage 4 chronic kidney disease, or unspecified chronic kidney disease; K22.81 Esophageal polyp; K22.4 Dyskinesia of esophagus; K22.5 Diverticulum of esophagus, acquired; R13.10 Dysphagia, unspecified; K44.9 Diaphragmatic hernia without obstruction or gangrene; E87.6 Hypokalemia; E86.0 Dehydration; K21.00 Gastro-esophageal reflux disease with esophagitis, without bleeding; I25.10 Atherosclerotic heart disease of native coronary artery without angina pectoris; F32.A Depression, unspecified; E78.5 Hyperlipidemia, unspecified; M19.90 Unspecified osteoarthritis, unspecified site; Z79.82 Long term (current) use of aspirin; Z79.52 Long term (current) use of systemic steroids; Z79.890 Hormone replacement therapy; Z79.899 Other long term (current) drug therapy; Z87.891 Personal history of nicotine dependence; Z91.81 History of falling; Z92.3 Personal history of irradiation; Z85.46 Personal history of malignant neoplasm of prostate; Z85.038 Personal history of other malignant neoplasm of large intestine; Z90.49 Acquired absence of other specified parts of digestive tract; Z85.89 Personal history of malignant neoplasm of other organs and systems; Z87.440 Personal history of urinary (tract) infections; Z87.81 Personal history of (healed) traumatic fracture; Z95.1 Presence of aortocoronary bypass graft; Z98.52 Vasectomy status; Z96.0 Presence of urogenital implants; Z86.69 Personal history of other diseases of the nervous system and sense organs; Z98.890 Other specified postprocedural states; Z82.49 Family history of ischemic heart disease and other diseases of the circulatory system
CPT/HCPCS: 36415; 43247; 70450; 70551; 71045; 80048; 80053; 80306; 80320; 81001; 82140; 82607; 82746; 83735; 84443; 84484; 85025; 85610; 85730; 87040; 87635; 93005; 93880; 94760; 95816; 99285

== ENCOUNTER → 2021-12-11 | Outpatient (CLI) | payer MEDICARE, BC ==
--- NOTE | 2021-12-11 12:29 | CT ---
EXAMINATION TYPE: CT ChestAbdPelvis w con DATE OF EXAM: 12/11/2021 COMPARISON: CT dated 06/01/2020 and 06/18/2014 HISTORY: Malignant carcinoid tumor of the ileum CT DLP: 427.00 mGycm Automated exposure control for dose reduction was used. CONTRAST: CT scan of the chest, abdomen and pelvis is performed with Oral Contrast and with IV Contrast, patien t injected with 100 ml mL of Isovue 300. FINDINGS: LUNGS: Mild fibrotic changes and subpleural reticulations are seen at the posterior aspect of the rig ht lower lobe, progressed compared to 2014 CT scan. Milder changes are seen on the left side. Please correlate with pulmonary function tests. No definite lung nodule or suspicious lesion. Patent trachea and main bronchi. No pleural effusion. MEDIASTINUM: There are no greater than 1 cm hilar or mediastinal lymph nodes. Cardiomegaly and previo us CABG. Scattered arterial atherosclerotic calcifications. No pericardial effusion is seen. OTHER: Sternotomy wire sutures. No aggressive bone lesion. LIVER/GB: No definite hepatic focal lesion. Previous cholecystectomy. Dilated CBD, likely related to post cholecystectomy status. PANCREAS: Atrophic with fatty infiltration mainly of the pancreatic head. SPLEEN: No significant abnormality is seen. ADRENALS: No significant abnormality is seen. KIDNEYS: No significant abnormality is seen. BOWEL: Hiatal hernia with suspected previous surgery at the gastroesophageal junction. Thickened gas tric wall, nonspecific. Unremarkable duodenum and small bowel unremarkable small bowel anastomosis in the right side of the abdomen. No evidence of bowel obstruction. Fecal loading of the colon with sca ttered uncomplicated colonic diverticulosis. Severe fecal loading of the cecum. REPRODUCTIVE ORGANS: Prostatic fiducial markers. Unremarkable seminal vesicles. Penile prosthesis with a reservoir in the right lower quadrant. Density seen in the right inguinal re gion which could represent undescended testicle or loculated fluid, stable. LYMPH NODES: 8 mm mesenteric lymph node (image 88, series 3), nonspecific. No greater than 1 cm abdom inal or pelvic lymph nodes are appreciated. OSSEOUS STRUCTURES: Reduced density of the sacrum, probably related to previous radiation. No aggress jackelyn bone lesion. OTHER: Scattered arterial atherosclerotic calcifications. No ascites. Left paraumbilical small hernia containing a small portion of a small bowel loop without bowel obstruction. This could cause mechani ree small bowel obstruction in the future. IMPRESSION: No evidence of local tumor recurrence or metastatic disease in the chest, abdomen or the pelvis. Mult iple incidental findings and recommendations as detailed above.
== END | disposition home or self-care (01) ==
LOC: RADCTMAIN 10:18
PROVIDERS: ATTEND Internal Medicine Hematology & Oncology
DX: C7A.012 Malignant carcinoid tumor of the ileum (principal)
CPT/HCPCS: 82565; 84520; 71260; 74177; 36415; Q9967

== ENCOUNTER → 2022-02-11 | Outpatient (CLI) | payer MEDICARE, BC ==
--- NOTE | 2022-02-11 10:32 | FL ---
EXAMINATION TYPE: FL UGI air w esophagus DATE OF EXAM: 02/11/2022 LIMITED UGI-ESOPHAGRAM: CLINICAL HISTORY: Dysphasia for over 20 years. Increasing in severity recently over the proximal eso phagus. Esophageal stricture per order. TECHNIQUE: UGI is performed utilizing 50 oz of barium. A total of 69 seconds of fluoroscopic time wa s utilized during procedure and 86 images obtained. Comparison: Most recent CT December 11, 2021 and multiple older CTs. FINDINGS: [employer] image shows cholecystectomy clips. There is partial visualization of sternal wires f rom CABG procedure. Epicardial pacer wires are noted. Surgical changes at level of diaphragmatic hiat us consistent with history of Ron fundoplication surgery are redemonstrated. The patient swallowed contrast without difficulty or delay. Esophageal peristalsis and motility are within normal limits during upright drinking. There is some delayed emptying on prone drinking. No proximal diverticulum. No obvious significant narrowing or stricture with particular attention to the proximal esophagus at area of patient concern. Persistent small to borderline moderate size hiatal hernia above the diaphra gm is redemonstrated unchanged from multiple prior older CTs. There is good flow of contrast along th e diaphragmatic hiatus into the stomach, there is no evidence of contrast extravasation to suggest le ak. Patient shows no increased symptoms of nausea or vomiting. Poor distention of stomach due to sing le contrast technique given history of prior surgery. Duodenal bulb and sweep appear within normal li mits. IMPRESSION: Stable small to moderate size fixed hiatal hernia. No esophageal stricture or significant focal stenosis noted.
== END | disposition home or self-care (01) ==
LOC: RADUSWWP 08:51
PROVIDERS: ATTEND Surgery
DX: K44.9 Diaphragmatic hernia without obstruction or gangrene (principal)
CPT/HCPCS: 74246

== ENCOUNTER 2022-04-02 13:04 | Emergency (ER) | payer MEDICARE, BC ==
--- NOTE | 2022-04-02 14:20 | ED ---
Medical Decision Making - Medical Decision Making Medical screening exam: She is an 81-year-old male presents to the emergency department per instruction by his primary care physician to be evaluated. Patient's not entirely clear why he was sent to the ER here he suspects that he was sent here for evaluation of syncope. Patient had 2 episodes of syncope yesterday. States that he was seen on a couch watching TV when he stood up and felt lightheaded and woke up on the ground. He suspects that he was unconscious for approximately 1-2 minutes. He had 2 episodes of these. Patient had outpatient blood work drawn here in the second floor 2 days ago. Patient has not had the results from these blood work yet. He tried to call his primary care physician's office yesterday but his PCP wasn't on the phone. He said he spoke with another individual from his staff. Today he received a call and was told to come to the emergency room. Patient's asymptomatic at this time. Patient's history of coronary artery bypass that was done 10 years ago. Focused physical exam shows well-appearing male without any gait ataxia. He is in no acute distress. Patient is not dyspneic. Vital signs are stable. A medical screening exam was performed and at this time the patient does not have an emergency medical condition that requires immediate intervention. The patient is currently hemodynamically stable and should wait for a complete history and physical and appropriate diagnostic testing. - Lab Data Result diagrams: 04/02/22 14:50 04/02/22 14:50 Disposition Clinical Impression: Syncope, Dehydration Disposition: HOME SELF-CARE Condition: Fair Instructions (If sedation given, give patient instructions): Dehydration (ED), Syncope (ED) Is patient prescribed a controlled substance at d/c from ED?: No Referrals: Gail Tidwell DO [Primary Care Provider] - 1-2 days
[2022-04-02 14:23] VITALS: BP 138/69; RESP 18; TEMP 98.4
[2022-04-02] MEDS ORDERED: SODIUM CHLORIDE 0.9% 500 ML 500 ML IV ONE (15:21)
--- NOTE | 2022-04-02 15:21 | ED ---
General Adult HPI - General Chief complaint: Syncope Stated complaint: Passing out Time Seen by Provider: 04/02/22 14:29 Source: patient, RN notes reviewed, old records reviewed Mode of arrival: wheelchair Limitations: no limitations - History of Present Illness Initial comments: 81-year-old male with chief complaint of sudden loss of consciousness sink she states this has happened to him in the past. He denies any preceding palpitations or chest pain. He denies cough or fever. Denies abdominal pain. Denies nausea vomiting. He states he does not drink enough water. He states that he passed out twice today. He was unconscious for several minutes. There is no head trauma. No injuries reported. He has no complaints time my evaluation. - Related Data Home Medications Medication Instructions Recorded Confirmed Aspirin EC [Ecotrin Low Dose] 81 mg PO DAILY 07/29/16 11/09/21 Simvastatin [Zocor] 20 mg PO DAILY 04/21/19 11/09/21 DULoxetine HCL [Cymbalta] 120 mg PO DAILY 04/04/20 11/09/21 Loratadine [Claritin] 10 mg PO DAILY PRN 12/15/20 11/09/21 Octreotide Acetate,Mi-Spheres 10 mg IM Q21D 03/26/21 11/09/21 [SandoSTATIN LAR [place]] Octreotide Acetate,Mi-Spheres 30 mg IM Q21D 03/26/21 11/09/21 [SandoSTATIN [place]AR [place]] Potassium Chloride ER [K-Dur 10] 10 meq PO DAILY 03/26/21 11/09/21 Dm/Acetaminophen/Doxylamine [Vicks 30 ml PO HS PRN 11/09/21 11/09/21 Nyquil Cold-Flu Liquid] Famotidine [Pepcid] 20 mg PO DAILY 11/09/21 11/09/21 Fludrocortisone [Florinef] 0.2 mg PO DAILY 11/09/21 11/09/21 Tamsulosin HCl [Flomax] 0.4 mg PO DAILY 11/09/21 11/09/21 Testosterone Cypionate 100 mg IM Q28D 11/09/21 11/10/21 [Depo-Testosterone] Triamcinolone Acetonide 1 spr EA NOSTRIL DAILY 11/09/21 11/09/21 [Triamcinolone Acetonide 0.055MG Nasal] Ergocalciferol [Vitamin D2 (1250 1,250 mcg PO Q7D 11/10/21 11/10/21 Mcg = 71214 Iu)] Montelukast [Singulair] 10 mg PO DAILY 11/10/21 11/10/21 Previous Rx's Medication Instructions Recorded Acetaminophen Tab [Tylenol] 650 mg PO Q6HR PRN tab 11/16/21 Pantoprazole Sodium [Protonix] 40 mg PO BID #60 tab 11/16/21 QUEtiapine XR [SEROquel XR] 200 mg PO HS #1 tab 11/16/21 Simethicone Chew [Mylicon Chew] 80 mg PO QID tab 11/16/21 amLODIPine [Norvasc] 10 mg PO DAILY #30 tablet 11/16/21 Allergies Allergy/AdvReac Type Severity Reaction Status Date / Time No Known Allergies Allergy Verified 04/02/22 14:23 Review of Systems ROS Statement: Those systems with pertinent positive or pertinent negative responses have been documented in the HPI. ROS Other: All systems not noted in ROS Statement are negative. 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 Past Anesthesia/Blood Transfusion Reactions: No Reported Reaction Past Psychological History: No Psychological Hx Reported Smoking Status: Former smoker, Light tobacco smoker Past Alcohol Use History: None Reported Past Drug Use History: None Reported - Past Family History Father Family Medical History: Myocardial Infarction ([place]) Additional Family Medical History / Comment(s): Pt did not know his father but they were told he of a [place] at the age of 42 yrs. Mother Family Medical History: Vascular Disorder Additional Family Medical History / Comment(s): Mother at age 68yrs, pt was told possible d/t ruptured aneurysm in her neck. General Exam General appearance: alert, in no apparent distress Head exam: Present: atraumatic, normocephalic Eye exam: Present: normal appearance, PERRL ENT exam: Present: mucous membranes dry Neck exam: Present: normal inspection. Absent: tenderness, meningismus Respiratory exam: Present: normal lung sounds bilaterally. Absent: respiratory distress, wheezes Cardiovascular Exam: Present: regular rate, normal rhythm GI/Abdominal exam: Present: soft. Absent: distended, tenderness, guarding, rebound Extremities exam: Present: normal inspection, normal capillary refill. Absent: pedal edema Neurological exam: Present: alert, oriented X3, CN II-XII intact. Absent: motor sensory deficit Psychiatric exam: Present: normal affect, normal mood Skin exam: Present: warm, dry, intact. Absent: cyanosis, diaphoretic Course Vital Signs 04/02/22 14:19 Temperature 98.4 F Pulse Rate 87 Respiratory 18 Rate Blood Pressure 138/69 O2 Sat by Pulse 100 Oximetry EKG Findings - EKG Comments: EKG Findings:: EKG: Sinus rhythm ST segment depression and T-wave inversion in the precordial leads, rate of 76, TN interval 195, QRS duration 80, QTC 399, similar appearance to prior obtained in October of this year. Medical Decision Making - Medical Decision Making 81-year-old male presenting with syncopal episode. Patient well-appearing without complaint. He stable vitals. He is in sinus rhythm. Chest x-rays unremarkable. Laboratory testing reveals mild anemia, mild elevation in serum creatinine at 1.44. Patient does admit to not drinking as much as he should. Urinalysis unremarkable, troponin negative. I did reassess the patient. He is adamant that he be discharged. He does not want observation for monitoring or hydration. He will drink more at home. He states he will return if things w orsen or change. Again the patient is eager for discharge. - Lab Data Result diagrams: 04/02/22 14:50 04/02/22 14:50 Lab Results 04/02/22 04/02/22 04/02/22 Range/Units 14:30 14:50 14:50 WBC 7.8 (3.8-10.6) k/uL RBC 3.89 L (4.30-5.90) m/uL Hgb 12.3 L (13.0-17.5) gm/dL Hct 36.5 L (39.0-53.0) % MCV 93.8 (80.0-100.0) fL MCH 31.7 (25.0-35.0) pg MCHC 33.8 (31.0-37.0) g/dL RDW 12.0 (11.5-15.5) % Plt Count 205 (150-450) k/uL MPV 7.8 Neutrophils % 68 % Lymphocytes % 22 % Monocytes % 5 % Eosinophils % 3 % Basophils % 1 % Neutrophils # 5.2 (1.3-7.7) k/uL Lymphocytes # 1.7 (1.0-4.8) k/uL Monocytes # 0.4 (0-1.0) k/uL Eosinophils # 0.3 (0-0.7) k/uL Basophils # 0.1 (0-0.2) k/uL Sodium 134 L (137-145) mmol/L Potassium 4.9 (3.5-5.1) mmol/L Chloride 103 (98-107) mmol/L Carbon Dioxide 22 (22-30) mmol/L Anion Gap 9 mmol/L BUN 22 H (9-20) mg/dL Creatinine 1.44 H (0.66-1.25) mg/dL Est GFR (CKD-EPI)AfAm 52 (>60 ml/min/1.73 sqM) Est GFR (CKD-EPI)NonAf 45 (>60 ml/min/1.73 sqM) Glucose 119 H (74-99) mg/dL Calcium 9.4 (8.4-10.2) mg/dL Magnesium 1.6 (1.6-2.3) mg/dL Total Bilirubin 0.3 (0.2-1.3) mg/dL AST 31 (17-59) U/L ALT 23 (4-49) U/L Alkaline Phosphatase 89 (38-126) U/L Troponin I (0.000-0.034) ng/mL Total Protein 7.2 (6.3-8.2) g/dL Albumin 4.4 (3.5-5.0) g/dL Urine Color Light Yellow Urine Appearance Clear (Clear) Urine pH 7.0 (5.0-8.0) Ur Specific [place] 1.011 (1.001-1.035) Urine Protein Negative (Negative) Urine Glucose (UA) Negative (Negative) Urine Ketones Negative (Negative) Urine Blood Negative (Negative) Urine Nitrite Negative (Negative) Urine Bilirubin Negative (Negative) Urine Urobilinogen <2.0 (<2.0) mg/dL Ur Leukocyte Esterase Negative (Negative) 04/02/22 Range/Units 14:50 WBC (3.8-10.6) k/uL RBC (4.30-5.90) m/uL Hgb (13.0-17.5) gm/dL Hct (39.0-53.0) % MCV (80.0-100.0) fL MCH (25.0-35.0) pg MCHC (31.0-37.0) g/dL RDW (11.5-15.5) % Plt Count (150-450) k/uL MPV Neutrophils % % Lymphocytes % % Monocytes % % Eosinophils % % Basophils % % Neutrophils # (1.3-7.7) k/uL Lymphocytes # (1.0-4.8) k/uL Monocytes # (0-1.0) k/uL Eosinophils # (0-0.7) k/uL Basophils # (0-0.2) k/uL Sodium (137-145) mmol/L Potassium (3.5-5.1) mmol/L Chloride (98-107) mmol/L Carbon Dioxide (22-30) mmol/L Anion Gap mmol/L BUN (9-20) mg/dL Creatinine (0.66-1.25) mg/dL Est GFR (CKD-EPI)AfAm (>60 ml/min/1.73 sqM) Est GFR (CKD-EPI)NonAf (>60 ml/min/1.73 sqM) Glucose (74-99) mg/dL Calcium (8.4-10.2) mg/dL Magnesium (1.6-2.3) mg/dL Total Bilirubin (0.2-1.3) mg/dL AST (17-59) U/L ALT (4-49) U/L Alkaline Phosphatase (38-126) U/L Troponin I <0.012 (0.000-0.034) ng/mL Total Protein (6.3-8.2) g/dL Albumin (3.5-5.0) g/dL Urine Color Urine Appearance (Clear) Urine pH (5.0-8.0) Ur Specific [place] (1.001-1.035) Urine Protein (Negative) Urine Glucose (UA) (Negative) Urine Ketones (Negative) Urine Blood (Negative) Urine Nitrite (Negative) Urine Bilirubin (Negative) Urine Urobilinogen (<2.0) mg/dL Ur Leukocyte Esterase (Negative) Disposition Clinical Impression: Syncope, Dehydration Disposition: HOME SELF-CARE Condition: Fair Instructions (If sedation given, give patient instructions): Syncope (ED), Dehydration (ED) Is patient prescribed a controlled substance at d/c from ED?: No Referrals: Gail Tidwell DO [Primary Care Provider] - 1-2 days Time of Disposition: 17:29
[2022-04-02 15:43] LABS: Basophils # (A) 0.1 k/uL (0-0.2); Basophils % (A) 1 %; Eosinophils # (A) 0.3 k/uL (0-0.7); Eosinophils % (A) 3 %; HCT 36.5 % (39.0-53.0); HGB 12.3 gm/dL (13.0-17.5); Lymphocytes # (A) 1.7 k/uL (1.0-4.8); Lymphocytes % (A) 22 %; MCH 31.7 pg (25.0-35.0); MCHC 33.8 g/dL (31.0-37.0); MCV 93.8 fL (80.0-100.0); Mean Platelet Volume 7.8; Monocytes # (A) 0.4 k/uL (0-1.0); Monocytes % (A) 5 %; Neutrophils # (A) 5.2 k/uL (1.3-7.7); Neutrophils % (A) 68 %; Platelet Count 205 k/uL (150-450); RBC 3.89 m/uL (4.30-5.90); WBC 7.8 k/uL (3.8-10.6)
--- NOTE | 2022-04-02 15:51 | XR ---
EXAMINATION TYPE: XR chest 2V DATE OF EXAM: 04/02/2022 3:48 PM COMPARISON: Chest radiographs from 11/12/2021 TECHNIQUE: XR chest 2V Frontal and lateral views of the chest. CLINICAL INDICATION:Male, 81 years old with history of syncope; FINDINGS: Lungs/Pleura: There is no evidence of pleural effusion, focal consolidation, or pneumothorax. Pulmonary vascularity: Unremarkable. Heart/mediastinum: Cardiomediastinal silhouette is unremarkable. Musculoskeletal: No acute osseous pathology. Midline sternotomy wires are noted and stable. IMPRESSION: No acute cardiopulmonary disease/process.
[2022-04-02 15:52] LABS: Albumin 4.4 g/dL (3.5-5.0); Calcium 9.4 mg/dL (8.4-10.2); Magnesium 1.6 mg/dL (1.6-2.3); Potassium 4.9 mmol/L (3.5-5.1); Total Bilirubin 0.3 mg/dL (0.2-1.3); Total Protein 7.2 g/dL (6.3-8.2)
[2022-04-02 17:26] LABS: Appearance,Urine Clear (Clear); Bilirubin,Urine Negative (Negative); Blood,Urine Negative (Negative); Color,Urine Light Yellow; Glucose,Urine (UA) Negative (Negative); Ketones,Urine Negative (Negative); Leukocyte Esterase,Urine Negative (Negative); Nitrite,Urine Negative (Negative); Protein,Urine Negative (Negative); Specific Gravity,Urine 1.011 (1.001-1.035); Urobilinogen,Urine <2.0 mg/dL (<2.0)
[2022-04-02 17:43] VITALS: PULSE 81
== END 2022-04-02 17:43 | disposition home or self-care (01) ==
LOC: EC 13:04
DX: R55 Syncope and collapse (principal); E86.0 Dehydration; I25.10 Atherosclerotic heart disease of native coronary artery without angina pectoris; Z79.1 Long term (current) use of non-steroidal anti-inflammatories (NSAID); E78.5 Hyperlipidemia, unspecified; I10 Essential (primary) hypertension; Z82.49 Family history of ischemic heart disease and other diseases of the circulatory system; Z87.891 Personal history of nicotine dependence
CPT/HCPCS: 36415; 71046; 80053; 81003; 83735; 84484; 85025; 93005

== ENCOUNTER 2022-05-03 10:19 | Day surgery (SDC) | payer MEDICARE, BC ==
[2022-05-03] MEDS ORDERED: LACTATED RINGERS 1,000 ML IV ONE (10:34)
[2022-05-03 10:48] VITALS: TEMP 97.4
[2022-05-03] MEDS ORDERED: LIDOCAINE 1% (10MG/ML) FOR IV START INTRADERMA ONE ×2 (11:02→11:05)
[2022-05-03 11:35] LABS: Glucose,Whole Blood 105 mg/dL (70-110)
[2022-05-03] MEDS ORDERED: PROPOFOL 10 MG/ML 20 ML VIAL IV ONE (12:00)
--- NOTE | 2022-05-03 12:05 | P.GSHP ---
History of Present Illness H&P Date: 05/03/22 Chief Complaint: Esophageal stricture This a 7-year-old male who's had complaints of dysphagia. 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 Past Anesthesia/Blood Transfusion Reactions: No Reported Reaction Smoking Status: Former smoker, Light tobacco smoker - Past Family History Father Family Medical History: Myocardial Infarction (MN) Additional Family Medical History / Comment(s): Pt did not know his father but they were told he of a [place] at the age of 42 yrs. Mother Family Medical History: Vascular Disorder Additional Family Medical History / Comment(s): Mother at age 68yrs, pt was told possible d/t ruptured aneurysm in her neck. Medications and Allergies Home Medications Medication Instructions Recorded Confirmed Type Aspirin EC [Ecotrin Low Dose] 81 mg PO DAILY 07/29/16 05/03/22 History Simvastatin [Zocor] 40 mg PO DAILY 04/21/19 05/03/22 History Octreotide Acetate,Mi-Spheres 10 mg IM Q21D 03/26/21 05/03/22 History [SandoSTATIN LAR [place]] Octreotide Acetate,Mi-Spheres 30 mg IM Q21D 03/26/21 05/03/22 History [SandoSTATIN LAR [place]] Fludrocortisone [Florinef] 1 mg PO DAILY 11/09/21 05/03/22 History QUEtiapine XR [SEROquel XR] 200 mg PO HS #1 tab 11/16/21 05/03/22 Rx Colestipol HCl 2 tab PO DAILY 04/30/22 05/03/22 History Diphenoxylate HCl/Atropine 1 - 2 tab PO QID 04/30/22 05/03/22 History [Lomotil 2.5-0.025 mg Tablet] Folic Acid 1 mg PO DAILY 04/30/22 05/03/22 History Gabapentin [Neurontin] 400 mg PO TID 04/30/22 05/03/22 History Omeprazole [PriLOSEC] 40 mg PO DAILY 04/30/22 05/03/22 History Allergies Allergy/AdvReac Type Severity Reaction Status Date / Time No Known Allergies Allergy Verified 05/03/22 10:30 Surgical - Exam Vital Signs Temp Pulse Resp BP Pulse Ox 97.4 F L 88 18 203/98 98 05/03/22 10:40 05/03/22 10:40 05/03/22 10:40 05/03/22 10:40 05/03/22 10:40 - General well developed, well nourished, no distress - Eyes PERRL - ENT normal pinna - Neck no masses - Respiratory normal expansion - Cardiovascular Rhythm: regular - Abdomen Abdomen: soft, non tender Assessment and Plan Assessment: Dysphagia related to esophageal stricture. She'll undergo EGD with possible balloon dilatation.
--- NOTE | 2022-05-03 12:15 | P.OP ---
Date of Procedure: 05/03/22 Preoperative Diagnosis: Dysphagia Postoperative Diagnosis: Hiatal hernia Procedure(s) Performed: EGD Anesthesia: MAC Surgeon: Robert Uribe Pathology: other (Esophagus) Condition: stable Disposition: PACU Description of Procedure: Patient's placed on the endoscopy table in the lateral position. He received IV sedation. The gastroscope placed oropharynx passed in the esophagus and stomach. Scope some placed through the pylorus. First and second portion of the duodenum appeared normal. The scope was brought back the pylorus appeared normal. The antrum appeared normal. Scope was retroflexed and there was a moderate fixed hiatal hernia. The GE junction was at 38 cm the distal esophagus appeared minimally inflamed and a biopsies was performed. The proximal esophagus appeared normal. The scope was withdrawn for patient.
[2022-05-03 12:19] VITALS: RESP 16
[2022-05-03 12:31] VITALS: BP 183/67; PULSE 83
== END 2022-05-03 12:48 | disposition home or self-care (01) ==
LOC: ORWHC2ENDO 10:19
PROVIDERS: ATTEND Surgery
DX: K20.90 Esophagitis, unspecified without bleeding (principal); K44.9 Diaphragmatic hernia without obstruction or gangrene; I25.10 Atherosclerotic heart disease of native coronary artery without angina pectoris; I10 Essential (primary) hypertension; E78.5 Hyperlipidemia, unspecified; M19.90 Unspecified osteoarthritis, unspecified site; K21.9 Gastro-esophageal reflux disease without esophagitis; Z85.46 Personal history of malignant neoplasm of prostate; Z79.899 Other long term (current) drug therapy; Z85.038 Personal history of other malignant neoplasm of large intestine; Z90.49 Acquired absence of other specified parts of digestive tract; Z95.1 Presence of aortocoronary bypass graft; Z87.891 Personal history of nicotine dependence; Z82.49 Family history of ischemic heart disease and other diseases of the circulatory system; Z79.82 Long term (current) use of aspirin; Z79.52 Long term (current) use of systemic steroids
CPT/HCPCS: 88305; 43239; J2704

== ENCOUNTER → 2022-05-21 | Outpatient (CLI) | payer MEDICARE, BC ==
--- NOTE | 2022-05-21 10:39 | FL ---
ESOPHOGRAM. HISTORY: Dysphagia Esophagram was performed per the air contrast technique. The patient swallowed barium and effervesce nt crystals without difficulty or delay. Esophageal peristalsis and motility appear to be within normal limits. There is no evidence for filling defect, mass or diverticulum. Small fixed hiatal hernia noted. Subsequently single contrast cervical esophagram was performed which fails demonstrate evidence for a spiration penetration or mass. IMPRESSION: Small fixed hiatal hernia noted.
== END | disposition home or self-care (01) ==
LOC: RADUSWWP 08:54
PROVIDERS: ATTEND Surgery
DX: K44.9 Diaphragmatic hernia without obstruction or gangrene (principal)
CPT/HCPCS: 74220

== ENCOUNTER → 2022-06-28 | Outpatient (CLI) | payer MEDICARE, BC ==
--- NOTE | 2022-06-29 12:03 | CT ---
EXAMINATION TYPE: CT abdomen wo con DATE OF EXAM: 06/28/2022 COMPARISON: 12/11/2021 INDICATION: pain, history of colon cancer DLP: 458 mGycm, Automated exposure control for dose reduction was used. CONTRAST: 0 mL of Isovue 300. Study performed with Oral Contrast TECHNIQUE: Axial images were obtained from above the diaphragm to the pubic rami in the axial plane a t 5 mm thick sections. Reconstructed images are reviewed on the computer in the coronal plane. FINDINGS: Limited CT sections are obtained the lung bases. Some mild pneumonitis changes in the posterior late ral right lung base. Correlate for atelectasis or scarring. Some coronary artery calcification is not ed. Hiatal hernia is present. Reflux into the distal esophagus is evident.. CT ABDOMEN: Liver: Normal Spleen: Normal Pancreas: Atrophic Adrenal glands: The adrenal glands are normal. Gallbladder: Surgically absent Kidneys: No masses are evident. No hydronephrosis is present. No cysts are present. No renal stone s are evident. Aorta: Vascular calcification is within the aorta. Inferior vena cava: Normal. Bowel: Postsurgical changes are in the right lower quadrant. Oral contrast extends to the distal smal l bowel loops. No dilated loops of bowel are evident. IMPRESSIONS: 1. Hiatal hernia with gastroesophageal reflux into the distal esophagus. 2. No suspicious changes to suggest recurrent or metastatic carcinoid within the abdomen.
== END | disposition home or self-care (01) ==
LOC: RADCTMAIN 13:14
PROVIDERS: ATTEND Family Medicine
DX: K21.9 Gastro-esophageal reflux disease without esophagitis (principal); K44.9 Diaphragmatic hernia without obstruction or gangrene; E34.0 Carcinoid syndrome; Z85.038 Personal history of other malignant neoplasm of large intestine
CPT/HCPCS: 74150; Q9967

== ENCOUNTER 2022-07-07 14:07 | Emergency (ER) | payer MEDICARE, BC ==
[2022-07-07 15:46] VITALS: BP 132/82; PULSE 77; RESP 16; TEMP 97.9
--- NOTE | 2022-07-07 16:27 | XR ---
EXAMINATION TYPE: XR chest 2V DATE OF EXAM: 07/07/2022 COMPARISON: 04/02/2022 INDICATION: Syncope TECHNIQUE: Single frontal view of the chest is obtained. FINDINGS: The heart size is normal. The pulmonary vasculature is normal. The lungs are clear. Sternotomy wires are in the midline. IMPRESSION: 1. No acute pulmonary process.
== END 2022-07-07 19:00 | disposition left against medical advice (07) ==
LOC: EC 14:07
DX: Z53.21 Procedure and treatment not carried out due to patient leaving prior to being seen by health care provider (principal)
CPT/HCPCS: 71046; 93005; 99499

== ENCOUNTER → 2022-07-12 | Outpatient (CLI) | payer MEDICARE, BC ==
[~2022-07-12] MED LIST changes: -DEXAMETHASONE SOD PHOSPHATE 4 MG/ML 1 ML VIAL IV ONE; -FAMOTIDINE 20 MG/2 ML VIAL IV PRN; -HYDROmorphone 0.5 MG/0.5 ML SYRINGE IVP PRN; -LACTATED RINGERS 1,000 ML IV SCH; -LIDOCAINE 1% (10MG/ML) FOR IV START INTRADERMA PRN; -ONDANSETRON 4 MG/2 ML VIAL IVP ONE; -ONDANSETRON 4 MG/2 ML VIAL IVP PRN; +REGADENOSON 0.4 MG/5 ML SYRINGE IV PRN
--- NOTE | 2022-07-12 14:07 | NM ---
EXAMINATION TYPE: NM stress lexiscan cardiolite DATE OF EXAM: 07/12/2022 COMPARISON: NONE HISTORY: Shortness of breath. TECHNIQUE: After the intravenous administration of 10 mCi Tc 99m Sestamibi - Cardiolite resting SPEC T images acquired 65 minutes post injection. The patient received 0.4mg Lexiscan, 25.4 mCi Tc 99m Sestamibi - Stress images obtained [address] injection FINDINGS: Review of stress and rest SPECT images demonstrates no distinct perfusion abnormality. Gated analysi s shows normal wall motion with an estimated left ventricular ejection fraction of 78 %. IMPRESSION: No scintigraphic evidence for reversible ischemia.
--- NOTE | 2022-07-13 09:24 | CA ---
Lexiscan Nuclear Stress Test Report Name: Reinier Bajwa Exam Date: 07/12/2022 11:52 Exam Location: [facility] Stress Ht (in): 67 Wt (lb): 155 BSA: 1.81 Ordering Phys: Kenneth Luciano MD Referring Phys: Kenneth Luciano MD Technologist: RIMMA,, Age: 81 Gender: M : 1940 Procedure CPT: Indications: R06.02 SHORTNESS OF BREATH ICD-10 Codes: Patient History: Chest Pain Medications: Meds past 24 hrs: Pretest Chest Pain: STRESS TEST Lexiscan Protocol Exercise Duration (min:sec): 02:[address] Depressions (mm): Angina Score: Rooney Score: Resting HR (bpm): 83 Peak HR (bpm): 92 Resting BP (mmHg): 175 / 98 Peak BP (mmHg): 153 / 83 MPHR: 138 Target HR: 117 % MPHR: 67 METS: 1.0 Total Dose: Peak Dose: Atropine: Double Product: 27949 BP Response: Stress Termination: Infusion complete Stress Symptoms: No chest pain or symptoms Stress Summary: ECG ANALYSIS Resting ECG: Sinus rhythm. Normal conduction. No arrhythmias. Normal repolarization. Stress ECG: No ECG changes from baseline with Lexiscan infusion. CONCLUSIONS No ECG evidence of ischemia with Lexiscan infusion. Nuclear test results to follow. Dr. Kristy Hong MD (Electronically Signed) Final Date: 13 July 2022 09:23
== END | disposition home or self-care (01) ==
LOC: RADNMMAIN 08:24
PROVIDERS: ATTEND Family Medicine
DX: R06.02 Shortness of breath (principal)
CPT/HCPCS: 93017; 78452; A9500; J2785

== ENCOUNTER 2022-09-10 13:55 | Observation (INO) | payer MEDICARE, BC ==
--- NOTE | 2022-09-10 15:46 | XR ---
EXAMINATION TYPE: XR chest 2V DATE OF EXAM: 09/10/2022 COMPARISON: Chest x-ray July 07, 2022 HISTORY: Syncope and weakness. TECHNIQUE: Frontal and lateral views of the chest are obtained. FINDINGS: There is chronic parenchymal change bilaterally without suspicious new focal air space [place], pleural effusion, or pneumothorax seen. Overlying sternal wires and mediastinal clips redemons trated. The cardiac silhouette size is stable and within normal limits. The osseous structures luis in demineralized. IMPRESSION: Chronic changes without acute pulmonary process. No significant change from prior.
[2022-09-10 17:20] LABS: Appearance,Urine Clear (Clear); Bilirubin,Urine Negative (Negative); Blood,Urine Negative (Negative); Color,Urine Yellow; Glucose,Urine (UA) Negative (Negative); Ketones,Urine Negative (Negative); Leukocyte Esterase,Urine Negative (Negative); Nitrite,Urine Negative (Negative); PH, Urine 6.5 (5.0-8.0); Protein,Urine Negative (Negative); Specific Gravity,Urine 1.012 (1.001-1.035); Urobilinogen,Urine <2.0 mg/dL (<2.0)
[2022-09-10 17:20] LABS: Basophils # (A) 0.1 k/uL (0-0.2); Basophils % (A) 1 %; Eosinophils # (A) 0.3 k/uL (0-0.7); Eosinophils % (A) 4 %; HCT 34.9 % (39.0-53.0); Lymphocytes # (A) 1.9 k/uL (1.0-4.8); Lymphocytes % (A) 25 %; MCH 31.4 pg (25.0-35.0); MCHC 34.4 g/dL (31.0-37.0); Mean Platelet Volume 8.1; Monocytes # (A) 0.4 k/uL (0-1.0); Monocytes % (A) 5 %; Neutrophils # (A) 4.6 k/uL (1.3-7.7); Neutrophils % (A) 63 %; Platelet Count 231 k/uL (150-450); RBC 3.84 m/uL (4.30-5.90); RDW 12.5 % (11.5-15.5); WBC 7.3 k/uL (3.8-10.6)
[2022-09-10 17:27] LABS: Prothrombin Time 10.5 sec (9.0-12.0)
[2022-09-10 17:44] LABS: Albumin 4.7 g/dL (3.5-5.0); Potassium 3.8 mmol/L (3.5-5.1); Total Bilirubin 0.6 mg/dL (0.2-1.3); Total Protein 7.8 g/dL (6.3-8.2)
--- NOTE | 2022-09-10 20:30 | ED ---
General Adult HPI - General Chief complaint: Syncope Stated complaint: Syncope Time Seen by Provider: 09/10/22 19:59 Source: patient, RN notes reviewed Mode of arrival: EMS - History of Present Illness Initial comments: 79-year-old male presents to the emergency department via EMS from home for evaluation of syncopal episode. Patient states he has dizziness with falls approximately 2-3 times per week. Patient states he had a syncopal episode today after getting up off the couch. States was uninjured in this fall, but did strike his head on carpeted floor. Able to get himself up off the ground after approximately 5 minutes. Complaints of generalized weakness. No other injuries reported. However patient does have a cotton ball in the right ear and when asked about it, he reports receiving antibiotic eardrops for an external ear infection. States this is an ongoing issue for the past 6 months. Reports no pain or discomfort. Denies fever, chills, headache, chest pain, shortness of breath, difficulty breathing, abdominal pain, nausea, vomiting, diarrhea, dysur ia. - Related Data Home Medications Medication Instructions Recorded Confirmed Aspirin EC [Ecotrin Low Dose] 81 mg PO DAILY 07/29/16 05/03/22 Simvastatin [Zocor] 40 mg PO DAILY 04/21/19 05/03/22 Octreotide Acetate,Mi-Spheres 10 mg IM Q21D 03/26/21 05/03/22 [SandoSTATIN LAR [place]] Octreotide Acetate,Mi-Spheres 30 mg IM Q21D 03/26/21 05/03/22 [SandoSTATIN LAR [place]] Fludrocortisone [Florinef] 1 mg PO DAILY 11/09/21 05/03/22 Colestipol HCl 2 tab PO DAILY 04/30/22 05/03/22 Diphenoxylate HCl/Atropine 1 - 2 tab PO QID 04/30/22 05/03/22 [Lomotil 2.5-0.025 mg Tablet] Folic Acid 1 mg PO DAILY 04/30/22 05/03/22 Gabapentin [Neurontin] 400 mg PO TID 04/30/22 05/03/22 Omeprazole [PriLOSEC] 40 mg PO DAILY 04/30/22 05/03/22 Previous Rx's Medication Instructions Recorded QUEtiapine XR [SEROquel XR] 200 mg PO HS #1 tab 11/16/21 Allergies Allergy/AdvReac Type Severity Reaction Status Date / Time No Known Allergies Allergy Verified 09/10/22 14:11 Review of Systems ROS Statement: Those systems with pertinent positive or pertinent negative responses have been documented in the HPI. ROS Other: All systems not noted in ROS Statement are negative. 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 Past Anesthesia/Blood Transfusion Reactions: No Reported Reaction Past Psychological History: No Psychological Hx Reported Smoking Status: Former smoker, Light tobacco smoker Past Alcohol Use History: None Reported Past Drug Use History: Marijuana - Past Family History Father Family Medical History: Myocardial Infarction (MT) Additional Family Medical History / Comment(s): Pt did not know his father but they were told he of a MT at the age of 42 yrs. Mother Family Medical History: Vascular Disorder Additional Family Medical History / Comment(s): Mother at age 68yrs, pt was told possible d/t ruptured aneurysm in her neck. General Exam Limitations: no limitations General appearance: alert, in no apparent distress Head exam: Present: atraumatic, normocephalic, normal inspection Eye exam: Present: normal appearance. Absent: scleral icterus, conjunctival injection, periorbital swelling, periorbital tenderness ENT exam: Present: mucous membranes dry, other (unable to visualize right TM) Expanded TM/Canal exam: Canal Discharge: Right TM (pinkish-brown drainage ), Canal Tenderness: Right TM (erythematous edematous ear canal) Neck exam: Present: normal inspection, full ROM. Absent: lymphadenopathy Respiratory exam: Present: normal lung sounds bilaterally. Absent: respiratory distress, wheezes, rales, rhonchi, stridor, chest wall tenderness Cardiovascular Exam: Present: regular rate, normal rhythm, normal heart sounds. Absent: systolic murmur, diastolic murmur, rubs, gallop, clicks GI/Abdominal exam: Present: soft, normal bowel sounds. Absent: distended, tenderness, guarding, rebound, rigid Extremities exam: Present: normal inspection, normal capillary refill. Absent: pedal edema Back exam: Absent: CVA tenderness (R) Neurological exam: Present: alert, oriented X3, CN II-XII intact Expanded Patient oriented to: Present: person, place, time Speech: Present: fluid speech Cranial nerves: Nystagmus: Normal Cerebellar function: Romberg: Normal Motor strength exam: RUE: 5, LUE: 5, RLE: 5, LLE: 5 Eye Response: (4) open spontaneously Motor Response: (6) obeys commands Verbal Response: (5) oriented Hayden Total: 15 Psychiatric exam: Present: normal affect, normal mood Course Vital Signs 09/10/22 09/10/22 14:09 20:50 Temperature 98 F Pulse Rate 88 73 Respiratory 18 18 Rate Blood Pressure 180/100 172/95 O2 Sat by Pulse 100 99 Oximetry - Reevaluation(s) Reevaluation #1: 09/10/22 20:31 Orthostatic measurements negative 09/10/22 21:28 Notified of critical lab. D-dimer 0.69. Age-adjusted places this within normal range. 09/10/22 22:21 Discussed results with patient. He is agreeable to stay in the hospital for further evaluation and treatment. Medical Decision Making - Medical Decision Making This is an 81-year-old male with a past medical history of CAD, hypertension, and syncope who presents to the emergency department for evaluation status post syncopal episode today in which patient ru from the couch then fell striking his head in the carpeted floor. Upon exam, patient is well-appearing and in no acute distress. No neurological deficits. He does complain of generalized weakness and fatigue. CT brain shows no acute findings. Laboratory studies were reviewed and show chronic mild anemia. D-dimer 0.69, age-adjusted, merits no further action. EKG shows normal sinus rhythm with no ectopy. Patient does have a right otitis externa that is stable for patient. It is not painful and he is currently on an antibiotic ear drop prescribed by ENT. Given that patient lives alone and has had multiple syncopal episodes with falls recently, he will be admitted for further evaluation and treatment. I spoke with Geoff Mora NP who agrees to accept this admission. Attending: Dr. Tidwell. - Lab Data Result diagrams: 09/10/22 16:13 09/10/22 16:13 Lab Results 09/10/22 09/10/22 09/10/22 Range/Units 16:13 16:13 16:13 WBC 7.3 (3.8-10.6) k/uL RBC 3.84 L (4.30-5.90) m/uL Hgb 12.0 L (13.0-17.5) gm/dL Hct 34.9 L (39.0-53.0) % MCV 91.0 (80.0-100.0) fL MCH 31.4 (25.0-35.0) pg MCHC 34.4 (31.0-37.0) g/dL RDW 12.5 (11.5-15.5) % Plt Count 231 (150-450) k/uL MPV 8.1 Neutrophils % 63 % Lymphocytes % 25 % Monocytes % 5 % Eosinophils % 4 % Basophils % 1 % Neutrophils # 4.6 (1.3-7.7) k/uL Lymphocytes # 1.9 (1.0-4.8) k/uL Monocytes # 0.4 (0-1.0) k/uL Eosinophils # 0.3 (0-0.7) k/uL Basophils # 0.1 (0-0.2) k/uL PT 10.5 (9.0-12.0) sec INR 1.0 (<1.2) APTT 30.0 (22.0-30.0) sec D-Dimer (<0.60) mg/L FEU Sodium 140 (137-145) mmol/L Potassium 3.8 (3.5-5.1) mmol/L Chloride 101 (98-107) mmol/L Carbon Dioxide 28 (22-30) mmol/L Anion Gap 11 mmol/L BUN 17 (9-20) mg/dL Creatinine 1.21 (0.66-1.25) mg/dL Est GFR (CKD-EPI)AfAm 64 (>60 ml/min/1.73 sqM) Est GFR (CKD-EPI)NonAf 56 (>60 ml/min/1.73 sqM) Glucose 138 H (74-99) mg/dL Calcium 9.0 (8.4-10.2) mg/dL Total Bilirubin 0.6 (0.2-1.3) mg/dL AST 30 (17-59) U/L ALT 25 (4-49) U/L Alkaline Phosphatase 114 (38-126) U/L Troponin I (0.000-0.034) ng/mL Total Protein 7.8 (6.3-8.2) g/dL Albumin 4.7 (3.5-5.0) g/dL Urine Color Urine Appearance (Clear) Urine pH (5.0-8.0) Ur Specific Gar[place] (1.001-1.035) Urine Protein (Negative) Urine Glucose (UA) (Negative) Urine Ketones (Negative) Urine Blood (Negative) Urine Nitrite (Negative) Urine Bilirubin (Negative) Urine Urobilinogen (<2.0) mg/dL Ur Leukocyte Esterase (Negative) 09/10/22 09/10/22 09/10/22 Range/Units 16:13 16:17 20:43 WBC (3.8-10.6) k/uL RBC (4.30-5.90) m/uL Hgb (13.0-17.5) gm/dL Hct (39.0-53.0) % MCV (80.0-100.0) fL MCH (25.0-35.0) pg MCHC (31.0-37.0) g/dL RDW (11.5-15.5) % Plt Count (150-450) k/uL MPV Neutrophils % % Lymphocytes % % Monocytes % % Eosinophils % % Basophils % % Neutrophils # (1.3-7.7) k/uL Lymphocytes # (1.0-4.8) k/uL Monocytes # (0-1.0) k/uL Eosinophils # (0-0.7) k/uL Basophils # (0-0.2) k/uL PT (9.0-12.0) sec INR (<1.2) APTT (22.0-30.0) sec D-Dimer 0.69 H (<0.60) mg/L FEU Sodium (137-145) mmol/L Potassium (3.5-5.1) mmol/L Chloride (98-107) mmol/L Carbon Dioxide (22-30) mmol/L Anion Gap mmol/L BUN (9-20) mg/dL Creatinine (0.66-1.25) mg/dL Est GFR (CKD-EPI)AfAm (>60 ml/min/1.73 sqM) Est GFR (CKD-EPI)NonAf (>60 ml/min/1.73 sqM) Glucose (74-99) mg/dL Calcium (8.4-10.2) mg/dL Total Bilirubin (0.2-1.3) mg/dL AST (17-59) U/L ALT (4-49) U/L Alkaline Phosphatase (38-126) U/L Troponin I <0.012 (0.000-0.034) ng/mL Total Protein (6.3-8.2) g/dL Albumin (3.5-5.0) g/dL Urine Color Yellow Urine Appearance Clear (Clear) Urine pH 6.5 (5.0-8.0) Ur Specific [place] 1.012 (1.001-1.035) Urine Protein Negative (Negative) Urine Glucose (UA) Negative (Negative) Urine Ketones Negative (Negative) Urine Blood Negative (Negative) Urine Nitrite Negative (Negative) Urine Bilirubin Negative (Negative) Urine Urobilinogen <2.0 (<2.0) mg/dL Ur Leukocyte Esterase Negative (Negative) - EKG Data EKG shows normal: sinus rhythm Rate: normal EKG Comments: EKG obtained at 1617 shows sinus rhythm with possible right ventricular conduction delay, moderate voltage criteria for LVH, nonspecific ST and T-wave abnormalities. Ventricular rate 74, ME interval 186, QRS duration 84, QT/QTC 390/417. Interpretation borderline ECG. I see no ectopy or evidence of acute ischemic changes. Compared with previous EKG shows no significant change. - Radiology Data Radiology results: report reviewed, image reviewed CT of the brain without contrast was obtained. Report was reviewed in its entirety. Impression per Dr. Cramer is cerebral atrophy and chronic small vessel ischemia. No acute intracranial abnormality. No change compared to old exam. Two-view chest x-ray was obtained. Report was reviewed in its entirety. Impression per Dr. Dickey shows chronic changes without acute pulmonary process. No significant change from prior. Disposition Clinical Impression: Generalized weakness, Syncope Disposition: ADMITTED IP TO THIS [facility] Condition: Serious Is patient prescribed a controlled substance at d/c from ED?: No Referrals: Kenneth Luciano MD [Primary Care Provider] - 1-2 days Decision Date: 09/10/22 Decision Time: 22:35
--- NOTE | 2022-09-10 21:28 | CT ---
EXAMINATION TYPE: CT brain wo con DATE OF EXAM: 09/10/2022 COMPARISON: 11/09/2021 HISTORY: syncopal episode CT DLP: 1253.4 mGycm Automated exposure control for dose reduction was used. Images obtained of the brain with no contrast. There is cerebral cortical atrophy. There is no mass effect or midline shift. No sign of intracranial hemorrhage. There is hypodensity in the periventricular white matter. The calvarium is intact. IMPRESSION: Cerebral atrophy and chronic small vessel ischemia. No acute intracranial abnormality. No change comp ared to old exam
[2022-09-10] MEDS ORDERED: HYDROmorphone 0.5 MG/0.5 ML SYRINGE IVP PRN (22:41)
[2022-09-10] MEDS ORDERED: ONDANSETRON 4 MG/2 ML VIAL IVP PRN (22:41)
[2022-09-10] MEDS ORDERED: NALOXONE 0.4 MG/ML 1 ML VIAL IV PRN (22:41)
[2022-09-10] MEDS ORDERED: ACETAMINOPHEN TAB 325 MG TAB PO PRN (22:41)
[2022-09-10] MEDS: QUEtiapine 100 MG TAB PO SCH (23:29)
[2022-09-11 05:38] LABS: Basophils % (A) 1 %; Eosinophils # (A) 0.2 k/uL (0-0.7); Eosinophils % (A) 4 %; HCT 28.3 % (39.0-53.0); Lymphocytes # (A) 1.7 k/uL (1.0-4.8); Lymphocytes % (A) 27 %; MCH 31.3 pg (25.0-35.0); MCHC 34.4 g/dL (31.0-37.0); MCV 90.8 fL (80.0-100.0); Mean Platelet Volume 8.7; Monocytes # (A) 0.4 k/uL (0-1.0); Monocytes % (A) 6 %; Neutrophils # (A) 3.8 k/uL (1.3-7.7); Neutrophils % (A) 61 %; Platelet Count 201 k/uL (150-450); RBC 3.12 m/uL (4.30-5.90); WBC 6.2 k/uL (3.8-10.6)
[2022-09-11 06:08] LABS: HGB 9.8 gm/dL (13.0-17.5)
[2022-09-11 06:13] LABS: Calcium 8.1 mg/dL (8.4-10.2); Potassium 3.8 mmol/L (3.5-5.1)
[2022-09-11] MEDS: ATORVASTATIN 20 MG TAB PO SCH (08:50)
[2022-09-11] MEDS: QUEtiapine 100 MG TAB PO SCH ×2 (08:50→20:23)
[2022-09-11] MEDS: GABAPENTIN 400 MG CAP PO SCH ×3 (08:50→20:23)
[2022-09-11] MEDS: ASPIRIN 81 MG PO SCH (08:50)
[2022-09-11] MEDS: FOLIC ACID 1 MG TAB PO SCH (08:50)
[2022-09-11] MEDS ORDERED: FAMOTIDINE 20 MG TAB PO SCH (09:00)
--- NOTE | 2022-09-11 11:36 | P.HPIM ---
History of Present Illness H&P Date: 09/11/22 History of present illness; patient is 81-year-old gentleman past medical history significant for coronary artery disease, hyperlipidemia, hypertension who presented to the ER because of a syncopal episode. Patient stated that he has been having syncopal episodes 2-3 times per week. Patient denies any warning symptoms prior to passing out. This time patient was getting out of the couch when he passed out. Patient denies any lightheadedness or dizziness prior to it. There was no fecal or urinary incontinence associated with it. Denied any post ictal confusion. Patient denies any chest pain or shortness of breath prior to passing out. Did mention that patient had some right ear infection for which he was getting antibiotics eardrops. In the ER, patient was worked up, hemoglobin was 12, platelet count was 231, d-dimer was slightly elevated at 0.69. Sodium was 138, potassium was 3.8. CT head was negative for any acute intracranial process. Patient was admitted for further evaluation and treatment REVIEW OF SYSTEMS: CONSTITUTIONAL: No fever, no malaise, no fatigue. HEENT: No recent visual problems or hearing problems. Denied any sore throat. CARDIOVASCULAR: No chest pain, orthopnea, PND, no palpitations, no syncope. PULMONARY: No shortness of breath, no cough, no hemoptysis. GASTROINTESTINAL: No diarrhea, no nausea, no vomiting, no abdominal pain. NEUROLOGICAL: No headaches, no weakness, no numbness. HEMATOLOGICAL: Denies any bleeding or petechiae. GENITOURINARY: Denies any burning micturition, frequency, or urgency. MUSCULOSKELETAL/RHEUMATOLOGICAL: Denies any joint pain, swelling, or any muscle pain. ENDOCRINE: Denies any polyuria or polydipsia. The rest of the 14-point review of systems is negative. PHYSICAL EXAMINATION: GENERAL: The patient is alert and oriented x3, not in any acute distress. Well developed, well nourished. HEENT: Pupils are round and equally reacting to light. EOMI. No scleral icterus. No conjunctival pallor. Normocephalic, atraumatic. No pharyngeal erythema. No thyromegaly. CARDIOVASCULAR: S1 and S2 present. No murmurs, rubs, or gallops. PULMONARY: Chest is clear to auscultation, no wheezing or crackles. ABDOMEN: Soft, nontender, nondistended, normoactive bowel sounds. No palpable organomegaly. MUSCULOSKELETAL: No joint swelling or deformity. EXTREMITIES: No cyanosis, clubbing, or pedal edema. NEUROLOGICAL: Gross neurological examination did not reveal any focal deficits. SKIN: No rashes. Assessment and plan Syncope History of right ear infection. Coronary artery disease Hypertension Hyperlipidemia Plan; Continue telemetry monitoring. Orthostatic vital signs Ordered CTA chest. 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 Past Anesthesia/Blood Transfusion Reactions: No Reported Reaction Past Psychological History: No Psychological Hx Reported Additional Psychological History / Comment(s): Pt resides in a trailer in [place]. Smoking Status: Former smoker, Light tobacco smoker Past Alcohol Use History: None Reported Additional Past Alcohol Use History / Comment(s): Patient reports that he would smoke cigars occasionally but none for many years. Past Drug Use History: Marijuana - Past Family History Father Family Medical History: Myocardial Infarction (AL) Additional Family Medical History / Comment(s): Pt did not know his father but they were told he of a AL at the age of 42 yrs. Mother Family Medical History: Vascular Disorder Additional Family Medical History / Comment(s): Mother at age 68yrs, pt was told possible d/t ruptured aneurysm in her neck. Medications and Allergies Home Medications Medication Instructions Recorded Confirmed Type Aspirin EC [Ecotrin Low Dose] 81 mg PO DAILY 07/29/16 05/03/22 History Simvastatin [Zocor] 40 mg PO DAILY 04/21/19 05/03/22 History Octreotide Acetate,Mi-Spheres 10 mg IM Q21D 03/26/21 05/03/22 History [SandoSTATIN LAR [place]] Octreotide Acetate,Mi-Spheres 30 mg IM Q21D 03/26/21 05/03/22 History [SandoSTATIN [place]AR [place]] Fludrocortisone [Florinef] 1 mg PO DAILY 11/09/21 05/03/22 History QUEtiapine XR [SEROquel XR] 200 mg PO HS #1 tab 11/16/21 05/03/22 Rx Colestipol HCl 2 tab PO DAILY 04/30/22 05/03/22 History Diphenoxylate HCl/Atropine 1 - 2 tab PO QID 04/30/22 05/03/22 History [Lomotil 2.5-0.025 mg Tablet] Folic Acid 1 mg PO DAILY 04/30/22 05/03/22 History Gabapentin [Neurontin] 400 mg PO TID 04/30/22 05/03/22 History Omeprazole [PriLOSEC] 40 mg PO DAILY 04/30/22 05/03/22 History Allergies Allergy/AdvReac Type Severity Reaction Status Date / Time No Known Allergies Allergy Verified 09/10/22 14:11 Physical Exam Vitals: Vital Signs Temp Pulse Pulse Resp BP BP Pulse Ox 09/11/22 08:00 80 16 09/11/22 07:10 98.3 F 80 16 170/102 98 09/11/22 02:15 101 H 18 09/11/22 01:50 119/75 09/11/22 00:30 97.6 F 101 H 18 195/118 96 09/10/22 23:47 83 18 153/95 98 09/10/22 20:50 73 18 172/95 99 09/10/22 14:09 98 F 88 18 180/100 100 Intake and Output 09/10/22 09/11/22 09/11/22 22:59 06:59 14:59 Other: Voiding Method Toilet Toilet # Voids 1 Weight 70.307 kg Results CBC & Chem 7: 09/11/22 05:01 09/11/22 05:01 Labs: Abnormal Lab Results - Last 24 Hours (Table) 09/10/22 09/10/22 09/10/22 Range/Units 16:13 16:13 20:43 RBC 3.84 L (4.30-5.90) m/uL Hgb 12.0 L (13.0-17.5) gm/dL Hct 34.9 L (39.0-53.0) % D-Dimer 0.69 H (<0.60) mg/L FEU Glucose 138 H (74-99) mg/dL Calcium (8.4-10.2) mg/dL 09/11/22 09/11/22 Range/Units 05:01 05:01 RBC 3.12 L (4.30-5.90) m/uL Hgb 9.8 L D (13.0-17.5) gm/dL Hct 28.3 L (39.0-53.0) % D-Dimer (<0.60) mg/L FEU Glucose 128 H (74-99) mg/dL Calcium 8.1 L (8.4-10.2) mg/dL Thrombosis Risk Factor Assmnt - Choose All That Apply Any of the Below Risk Factors Present?: No Other Risk Factors: No Each Risk Factor Represents 3 Points: Age 75 years or older Thrombosis Risk Factor Assessment Total Risk Factor Score: 3 Thrombosis Risk Factor Assessment Level: Very Low Risk
--- NOTE | 2022-09-11 11:37 | CT ---
EXAMINATION TYPE: CT chest angio for PE CT DLP: 470 mGycm, Automated exposure control for dose reduction was used. DATE OF EXAM: 09/11/2022 10:53 AM COMPARISON: Chest radiograph from same day. Multiple CTs of the chest with most recent on 12/11/2021. CLINICAL INDICATION:Male, 81 years old with history of syncopal episode; TECHNIQUE/CONTRAST: CTA scan of the thorax is performed with IV Contrast, patient injected with 57 mL of Isovue 370, pulm onary embolism protocol. MIP images are created and reviewed. FINDINGS: Pulmonary Artery: There is no evidence for a filling defect within the pulmonary vasculature to sugge st acute pulmonary embolism. The pulmonary artery is of normal size. Lungs/Pleura: No evidence of focal consolidation, pleural effusion or pneumothorax. Posterior predomi nantly peripheral scattered reticular probable atelectasis changes Airway: Large airways are patent. Heart: Heart is within normal limits for size. Moderate coronary artery atherosclerosis. Vasculature: No evidence of aortic aneurysm. Mediastinum: No gross evidence of adenopathy. Musculoskeletal: No acute osseous abnormalities, sternotomy wires are present. Multilevel disc degene ration changes are present throughout the spine. Soft Tissues: Increased density posterior to the nipples bilaterally consistent with gynecomastia. Lower neck: No significant findings. Upper Abdomen: No obstructing left renal calculus. The gallbladder surgically absent. Small hiatal he rnia. Postsurgical changes gastroesophageal junction. IMPRESSION: 1. No evidence of pulmonary embolism. 2. Small hiatal hernia. 3. Left obstructing renal calculus. 4. Mild pulmonary fibrotic changes thought to be similar given phase of inspiration.
[2022-09-11] MEDS: NON FORMULARY DRUG (Colestipol Hcl [Colestipol Hcl] 1 GM Tablet) PO SCH (11:39)
[2022-09-11] MEDS: SODIUM CHLORIDE 0.9% 1,000 ML IV SCH ×2 (17:51)
--- NOTE | 2022-09-11 22:19 | CONS ---
CONSULTATION CHIEF COMPLAINT: Syncope. HISTORY OF PRESENT ILLNESS: Mr. Hills is an 81-year-old gentleman with history of coronary artery disease, hypertension, and dyslipidemia, who was admitted to hospital with syncope. The patient has been having episodes of near syncope and suddenly had a syncopal event yesterday. There were no clear-cut warning symptoms, did not have any injury, did not have bladder or bowel incontinence, and did not have focal neurological deficits. Since being admitted, he has been doing well and did not have significant tachy or bradyarrhythmias. EKG showed sinus rhythm with nonspecific ST-T wave changes. His CT scan of the brain was unremarkable. Two-view CT scan of the chest was negative for pulmonary embolism. His hemoglobin, however, dropped from 12 to 9.8. He denies any melenic stools. Three sets of cardiac enzymes have been negative. The patient has had orthostatic hypotension in the past and also had uncontrolled hypertension. He takes midodrine regularly at home and in the past, his syncopal events were related to the hypotension. PAST MEDICAL HISTORY: Significant for CAD, hypertension, dyslipidemia, osteoarthritis, and prostate disorder. PAST SURGICAL HISTORY: Significant for bypass surgery, cholecystectomy, bowel resection, and prostate surgery. MEDICATIONS: Included simvastatin, Seroquel, K-Dur, aspirin, Prilosec, Singulair, midodrine, Claritin, Florinef, Pepcid, and Cymbalta. ALLERGIES: There are no known drug allergies. FAMILY HISTORY: Negative for premature coronary artery disease. SOCIAL HISTORY: Negative for current smoking issues or drug abuse. REVIEW OF SYSTEMS: 14 out of 14 review of systems has been performed. Pertinents are as documented. PHYSICAL EXAMINATION: GENERAL: Comfortable at rest. VITAL SIGNS: Afebrile. Heart rate is 80 beats per minute, and blood pressure is 170/100, O2 saturation is 98% on room air. NECK: There is no jugular venous distention. Carotid upstroke is normal. There is no bruit. CHEST: Exam reveals good air entry bilaterally. HEART: Exam reveals first and second heart sounds. Systolic murmur at the left lower sternal border. ABDOMEN: Soft. EXTREMITIES: Exam of extremities did not reveal any edema. Peripheral pulses are felt. LABORATORY DATA: Labs show hemoglobin of 9.8, platelet count is 201, potassium is 3.8, creatinine is 1. Troponins are negative. ASSESSMENT: 1. Syncope rule out cardiac causes. 2. Coronary artery disease, status post coronary artery bypass grafting. 3. History of orthostatic hypotension. PLAN: His syncope could be related to the orthostatic hypotension, but since being admitted, he is doing well. We will check his orthostatics. Please hold midodrine at this time as his blood pressures have been quite high. Hold the Florinef also. We will watch him on telemetry. We will obtain a 2D echo and decide on further course of action based on how he responds. MONICA / DANNIELLEN: [id number] /
[2022-09-12] MEDS: SODIUM CHLORIDE 0.9% 1,000 ML IV SCH (02:31)
[2022-09-12] MEDS: GABAPENTIN 400 MG CAP PO SCH (08:48)
[2022-09-12] MEDS: ASPIRIN 81 MG PO SCH (08:48)
[2022-09-12] MEDS: QUEtiapine 100 MG TAB PO SCH (08:48)
[2022-09-12] MEDS: FOLIC ACID 1 MG TAB PO SCH (08:48)
[2022-09-12] MEDS: ATORVASTATIN 20 MG TAB PO SCH (08:48)
[2022-09-12] MEDS: NON FORMULARY DRUG (Colestipol Hcl [Colestipol Hcl] 1 GM Tablet) PO SCH (08:49)
[2022-09-12] MEDS ORDERED: FAMOTIDINE 20 MG TAB PO SCH (09:00)
[2022-09-12 09:01] VITALS: RESP 16; TEMP 98.4
[2022-09-12 09:21] VITALS: BP 170/98
[2022-09-12 10:41] VITALS: PULSE 94
--- NOTE | 2022-09-12 11:03 | P.DS ---
Providers Date of admission: 09/10/22 23:15 Expected date of discharge: 09/12/22 Attending physician: Sharon Velásquez Consults: 09/11/22 09:09 Consult Physician Routine Consulting Provider: Maximus oGuld Consult Reason/Comments: syncoplal episode Do you want consulting provider notified?: Yes 09/11/22 18:24 Consult Physician Routine Consulting Provider: Nazia Austin Consult Reason/Comments: "elevated d dimer neg cta pe " Do you want consulting provider notified?: Yes Primary care physician: Kenneth Luciano MD Hospital Course: Discharge diagnoses; Syncope History of right ear infection. Coronary artery disease Hypertension Hyperlipidemia History of Orthostatic hypotension Hospital course; patient is 81-year-old gentleman past medical history significant for coronary artery disease, hyperlipidemia, hypertension who presented to the ER because of a syncopal episode. Patient stated that he has been having syncopal episodes 2- 3 times per week. Patient denies any warning symptoms prior to passing out. This time patient was getting out of the couch when he passed out. Patient denies any lightheadedness or dizziness prior to it. There was no fecal or urinary incontinence associated with it. Denied any post ictal confusion. Patient denies any chest pain or shortness of breath prior to passing out. Did mention that patient had some right ear infection for which he was getting antibiotics eardrops. In the ER, patient was worked up, hemoglobin was 12, platelet count was 231, d-dimer was slightly elevated at 0.69. Sodium was 138, potassium was 3.8. CT head was negative for any acute intracranial process. Patient was admitted for further evaluation and treatment Cardiology were consulted, they recommended checking orthostatics, CT chest was done was negative for any PE. Cardiology cleared the patient for discharge PHYSICAL EXAMINATION: GENERAL: The patient is alert and oriented x3, not in any acute distress. Well developed, well nourished. HEENT: Pupils are round and equally reacting to light. EOMI. No scleral icterus. No conjunctival pallor. Normocephalic, atraumatic. No pharyngeal erythema. No thyromegaly. CARDIOVASCULAR: S1 and S2 present. No murmurs, rubs, or gallops. PULMONARY: Chest is clear to auscultation, no wheezing or crackles. ABDOMEN: Soft, nontender, nondistended, normoactive bowel sounds. No palpable organomegaly. MUSCULOSKELETAL: No joint swelling or deformity. EXTREMITIES: No cyanosis, clubbing, or pedal edema. NEUROLOGICAL: Gross neurological examination did not reveal any focal deficits. SKIN: No rashes. Patient Condition at Discharge: Serious Plan - Discharge Summary Discharge Rx Participant: No New Discharge Prescriptions: Continue Aspirin EC [Ecotrin Low Dose] 81 mg PO DAILY Simvastatin [Zocor] 20 mg PO DAILY Octreotide Acetate,Mi-Spheres [SandoSTATIN [place]] 30 mg IM QMONTHLY Octreotide Acetate,Mi-Spheres [SandoSTATIN [place]] 10 mg IM QMONTHLY Fludrocortisone [Florinef] 0.1 mg PO BID QUEtiapine XR [SEROquel XR] 200 mg PO HS #1 tab Diphenoxylate HCl/Atropine [Lomotil 2.5-0.025 mg Tablet] 1 - 2 tab PO QID Midodrine [ProAmatine] 5 mg PO TID Loratadine [Claritin] 10 mg PO DAILY Famotidine [Pepcid] 20 mg PO DAILY Omeprazole [PriLOSEC] 40 mg PO DAILY Potassium Chloride ER [K-Dur 10] 10 meq PO DAILY Montelukast [Singulair] 10 mg PO DAILY DULoxetine HCL [Cymbalta] 60 mg PO BID Tamsulosin HCl [Flomax] 0.4 mg PO DAILY Discharge Medication List Aspirin EC [Ecotrin Low Dose] 81 mg PO DAILY 07/29/16 [History] Simvastatin [Zocor] 20 mg PO DAILY 04/21/19 [History] Octreotide Acetate,Mi-Spheres [SandoSTATIN [place]] 10 mg IM QMONTHLY 03/26/21 [History] Octreotide Acetate,Mi-Spheres [SandoSTATIN [place]] 30 mg IM QMONTHLY 03/26/21 [History] Fludrocortisone [Florinef] 0.1 mg PO BID 11/09/21 [History] QUEtiapine XR [SEROquel XR] 200 mg PO HS #1 tab 11/16/21 [Rx] Diphenoxylate HCl/Atropine [Lomotil 2.5-0.025 mg Tablet] 1 - 2 tab PO QID 04/30/22 [History] Omeprazole [PriLOSEC] 40 mg PO DAILY 04/30/22 [History] DULoxetine HCL [Cymbalta] 60 mg PO BID 09/11/22 [History] Famotidine [Pepcid] 20 mg PO DAILY 09/11/22 [History] Loratadine [Claritin] 10 mg PO DAILY 09/11/22 [History] Midodrine [ProAmatine] 5 mg PO TID 09/11/22 [History] Montelukast [Singulair] 10 mg PO DAILY 09/11/22 [History] Potassium Chloride ER [K-Dur 10] 10 meq PO DAILY 09/11/22 [History] Tamsulosin HCl [Flomax] 0.4 mg PO DAILY 09/11/22 [History] Follow up Appointment(s)/Referral(s): Kenneth Luciano MD [Primary Care Provider] - 1-2 days Discharge Disposition: HOME SELF-CARE
[2022-09-12 11:29] LABS: Basophils % (A) 1 %; Eosinophils # (A) 0.2 k/uL (0-0.7); Eosinophils % (A) 4 %; HCT 31.4 % (39.0-53.0); HGB 10.5 gm/dL (13.0-17.5); Lymphocytes # (A) 1.3 k/uL (1.0-4.8); Lymphocytes % (A) 24 %; MCH 31.5 pg (25.0-35.0); MCHC 33.5 g/dL (31.0-37.0); MCV 93.8 fL (80.0-100.0); Mean Platelet Volume 7.7; Monocytes # (A) 0.2 k/uL (0-1.0); Monocytes % (A) 4 %; Neutrophils # (A) 3.5 k/uL (1.3-7.7); Neutrophils % (A) 66 %; Platelet Count 222 k/uL (150-450); RBC 3.35 m/uL (4.30-5.90); RDW 13.1 % (11.5-15.5); WBC 5.4 k/uL (3.8-10.6)
--- NOTE | 2022-09-12 11:56 | PN ---
PROGRESS NOTE SUBJECTIVE: Reinier is an 81-year-old gentleman with history of coronary artery disease status post CABG, history of orthostatic hypotension, who presented to hospital with a syncopal event. The patient has had prior syncopes also. Since being admitted to hospital, he has been doing well and has orthostatic changes, ruled out for myocardial infarction. He is anemic with a hemoglobin of 9.8, and I do not have labs from this morning, he ruled out for myocardial infarction. This morning he is doing well and is free of symptoms. Continues to have orthostatic changes. OBJECTIVE: CHEST: Reveals good air entry bilaterally. HEART: Reveals first and second heart sounds, no gallop. ABDOMEN: Soft . EXTREMITIES: Did not reveal any edema. Peripheral pulses are felt. ASSESSMENT AND PLAN: Syncope probably related to the orthostatic hypotension. We will continue the patient on aspirin, Lipitor, midodrine, and Florinef and add amlodipine to control the hypertension episodes. MMODL / IJN: [id number] /
--- NOTE | 2022-09-12 16:39 | P.CNPUL ---
History of Present Illness Consult date: 09/12/22 Requesting physician: Carlos Mandujano Reason for consult: other (Syncope) Chief complaint: Recurrent syncope History of present illness: This is an 81-year-old white male with history of multiple medical problems including coronary artery disease, dyslipidemia, hypertension, orthostatic hypotension, normally maintained on midodrine and Florinef. Patient was admitted this time with recurrent syncope, and I was asked to see him, no clear- cut evidence of any pulmonary history whatsoever. His CT angiogram of the chest is negative for pulmonary embolism and no specific pulmonary findings related to his main complaint. Hence I'm recommending cardiology evaluation, and we will see the patient on as-needed basis. Patient had no cough no wheezing no shortness of breath no chest pain, he had no active pulmonary symptoms whatsoever. Review of Systems CONSTITUTIONAL: Negative HEENT: No recent visual problems or hearing problems. Denied any sore throat. CARDIOVASCULAR: Recurrent syncope but no chest pain no palpitations. PULMONARY: Negative GASTROINTESTINAL: No diarrhea, no nausea, no vomiting, no abdominal pain. NEUROLOGICAL: Recurrent syncope HEMATOLOGICAL: Denies any bleeding or petechiae. GENITOURINARY: Denies any burning micturition, frequency, or urgency. 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 Past Anesthesia/Blood Transfusion Reactions: No Reported Reaction Past Psychological History: No Psychological Hx Reported Additional Psychological History / Comment(s): Pt resides in a trailer in [place]. Smoking Status: Former smoker, Light tobacco smoker Past Alcohol Use History: None Reported Additional Past Alcohol Use History / Comment(s): Patient reports that he would smoke cigars occasionally but none for many years. Past Drug Use History: Marijuana - Past Family History Father Family Medical History: Myocardial Infarction ([place]) Additional Family Medical History / Comment(s): Pt did not know his father but they were told he of a [place] at the age of 42 yrs. Mother Family Medical History: Vascular Disorder Additional Family Medical History / Comment(s): Mother at age 68yrs, pt was told possible d/t ruptured aneurysm in her neck. Medications and Allergies Home Medications Medication Instructions Recorded Confirmed Type Aspirin EC [Ecotrin Low Dose] 81 mg PO DAILY 07/29/16 09/11/22 History Simvastatin [Zocor] 20 mg PO DAILY 04/21/19 09/11/22 History Octreotide Acetate,Mi-Spheres 10 mg IM QMONTHLY 03/26/21 09/11/22 History [SandoSTATIN [place]] Octreotide Acetate,Mi-Spheres 30 mg IM QMONTHLY 03/26/21 09/11/22 History [SandoSTATIN [place]] Fludrocortisone [Florinef] 0.1 mg PO BID 11/09/21 09/11/22 History QUEtiapine XR [SEROquel XR] 200 mg PO HS #1 tab 11/16/21 09/11/22 Rx Diphenoxylate HCl/Atropine 1 - 2 tab PO QID 04/30/22 09/11/22 History [Lomotil 2.5-0.025 mg Tablet] Omeprazole [PriLOSEC] 40 mg PO DAILY 04/30/22 09/11/22 History DULoxetine HCL [Cymbalta] 60 mg PO BID 09/11/22 09/11/22 History Famotidine [Pepcid] 20 mg PO DAILY 09/11/22 09/11/22 History Loratadine [Claritin] 10 mg PO DAILY 09/11/22 09/11/22 History Midodrine [ProAmatine] 5 mg PO TID 09/11/22 09/11/22 History Montelukast [Singulair] 10 mg PO DAILY 09/11/22 09/11/22 History Potassium Chloride ER [K-Dur 10] 10 meq PO DAILY 09/11/22 09/11/22 History Tamsulosin HCl [Flomax] 0.4 mg PO DAILY 09/11/22 09/11/22 History Allergies Allergy/AdvReac Type Severity Reaction Status Date / Time No Known Allergies Allergy Verified 09/11/22 12:13 Physical Exam Vitals: Vital Signs Temp Pulse Pulse Pulse Pulse Resp BP 09/12/22 09:18 102 H 107 H 89 149/93 09/12/22 08:00 94 102 H 107 H 89 16 09/12/22 07:20 98.4 F 94 16 09/12/22 03:04 98.3 F 95 18 09/12/22 01:41 93 16 09/11/22 20:23 93 16 09/11/22 20:19 98.2 F 86 17 BP BP BP Pulse Ox 09/12/22 09:18 119/78 170/98 98 09/12/22 08:00 09/12/22 07:20 170/88 97 09/12/22 03:04 132/75 97 09/12/22 01:41 09/11/22 20:23 09/11/22 20:19 154/101 100 Intake and Output 09/12/22 09/12/22 09/12/22 06:59 14:59 22:59 Other: Voiding Method Toilet Toilet # Voids 2 Physical Exam: Revealed an 81-year-old white male in no distress Head: Atraumatic normocephalic HEENT:[Neck is supple.] [No neck masses.] [No thyromegaly.] [No JVD.] Chest: [Clear throughout, no crackles, no rhonchi, no wheezes.] Cardiac Exam: [Normal S1 and S2, no S3 gallop, no murmur.] Abdomen: [Soft, nontender, no megaly, no rebound, no guarding, normal bowel sounds.] Extremities: [No clubbing, no edema, no cyanosis.] Neurological Exam: [No focal neurologic deficit.] Alert oriented 3 Psychiatric: Normal mood and normal affect and normal mental status exam Results - Laboratory Findings CBC and BMP: 09/12/22 10:37 09/11/22 05:01 PT/INR, D-dimer PT 10.5 sec (9.0-12.0) 09/10/22 16:13 INR 1.0 (<1.2) 09/10/22 16:13 D-Dimer 0.69 mg/L FEU (<0.60) H 09/10/22 20:43 Abnormal lab findings: Abnormal Labs 09/10/22 09/10/22 09/10/22 16:13 16:13 20:43 RBC 3.84 L Hgb 12.0 L Hct 34.9 L D-Dimer 0.69 H Glucose 138 H Calcium 09/11/22 09/11/22 09/12/22 05:01 05:01 10:37 RBC 3.12 L 3.35 L Hgb 9.8 L D 10.5 L Hct 28.3 L 31.4 L D-Dimer Glucose 128 H Calcium 8.1 L - Diagnostic Findings CT scan - chest: image reviewed (As noted in HPI) Assessment and Plan Assessment: Impression: Recurrent syncope, not pulmonary related patient has no active pulmonary symptoms whatsoever and his CT of the chest is unremarkable. Recommendation: Continue present treatment plan Cardiology/neurology to evaluate the patient for his syncope Will follow as needed Time with Patient: Greater than 30
== END 2022-09-12 13:15 | disposition home or self-care (01) ==
LOC: EC 13:55 → 6NMEDSUR 23:15
PROVIDERS: ADMIT Hospitalist; ATTEND Hospitalist
DX: R55 Syncope and collapse (principal); R53.1 Weakness; I10 Essential (primary) hypertension; I25.10 Atherosclerotic heart disease of native coronary artery without angina pectoris; E78.5 Hyperlipidemia, unspecified; M19.90 Unspecified osteoarthritis, unspecified site; N42.9 Disorder of prostate, unspecified; K21.9 Gastro-esophageal reflux disease without esophagitis; H60.91 Unspecified otitis externa, right ear; Z85.46 Personal history of malignant neoplasm of prostate; Z85.038 Personal history of other malignant neoplasm of large intestine; Z87.891 Personal history of nicotine dependence; Z95.1 Presence of aortocoronary bypass graft; Z79.82 Long term (current) use of aspirin; Z79.899 Other long term (current) drug therapy
CPT/HCPCS: 99285; 36415; 93005; 85379; 80053; 80048; 84484 ×2; 85025 ×3; 85610; 85730; 81003; 71046; 70450; 71275; G0378 ×3; Q9967

== ENCOUNTER → 2023-02-17 | Outpatient (CLI) | payer MEDICARE, BC | END | disposition home or self-care (01) | LOC: RADCTMAIN 13:19 | PROVIDERS: ATTEND Internal Medicine Hematology & Oncology | DX: Z53.9 Procedure and treatment not carried out, unspecified reason (principal) ==

== ENCOUNTER → 2023-02-25 | Outpatient (CLI) | payer MEDICARE, BC ==
--- NOTE | 2023-02-25 13:18 | CT ---
EXAMINATION TYPE: CT abdomen pelvis wo con DATE OF EXAM: 02/25/2023 COMPARISON: 06/28/2022 HISTORY: 82-year-old male C7A.012, malignant carcinoid tumor of the ileum, abdominal pain CT DLP: 317.4 mGycm. Automated exposure control for dose reduction was used. TECHNIQUE: Contiguous axial scanning of the abdomen and pelvis without IV contrast. Coronal and sagit jayme reconstructions performed. FINDINGS: Median sternotomy wires. Heart upper limits of normal in size. Post surgical changes at the GE juncti on but with an moderate sized hiatal hernia, possible recurrent hiatal hernia. Some interstitial scar ring and reticulation at the lung bases is similar. No pleural effusion. Noncontrast appearance of the liver, adrenal glands, spleen, and atrophic pancreas show no gross abno rmality. Tiny inferior hilar splenule. A few punctate 3 mm smaller bilateral renal calculi. No hydronephrosis. Mild atherosclerotic calcifications infrarenal abdominal aorta with mild fusiform ectasia to 2.4 cm. No dilated small bowel, free fluid, free air. Previous small bowel surgery anterior right abdomen. No mesenteric or retroperitoneal lymphadenopathy. Some soft tissue thickening involving the anterior wall of the cecum, a axial image 59. Unclear if th is represents solid stool material. Mild stool elsewhere throughout the colon. Sigmoid diverticulosis . No pericolonic inflammatory change. [place] anterior right side of the pelvis and penile implant. Brachytherapy seeds within the prosta te gland. Bladder urine distended. Otherwise, no abnormal fluid collection the pelvis or pelvic lymph adenopathy. Possible intracanalicular right testicle. Foci of air in the subcutaneous adipose overlying the bilateral gluteal regions and some soft tissue nodularity here as well. Bones: Anterior endplate spondylosis lower thoracic and upper lumbar spine. Facet arthropathy lower l umbar spine. IMPRESSION: 1. Some possible focal mural thickening along the anterior wall of the cecum versus solid stool mater ial. Correlate with findings on colonoscopy to exclude a mucosal lesion. 2. Otherwise, allowing for noncontrast technique,, no suspicious mass or adenopathy is clearly identi fied. Previous small bowel surgery in the right anterior abdomen. 3. Sigmoid diverticulosis without acute diverticulitis. 4. Foci of air and cutaneous fat layer overlying the bilateral gluteal regions. Some associated soft tissue nodularity. Query for ongoing subcutaneous injections here. 5. Correlate for recurrent moderate-sized hiatal hernia after prior repair. If symptomatic, consider referring back to the surgeon.
== END | disposition home or self-care (01) ==
LOC: RADCTMAIN 12:26
PROVIDERS: ATTEND Internal Medicine Hematology & Oncology
DX: C7A.012 Malignant carcinoid tumor of the ileum (principal); K57.30 Diverticulosis of large intestine without perforation or abscess without bleeding; K63.89 Other specified diseases of intestine
CPT/HCPCS: 74176

== ENCOUNTER 2023-03-14 18:27 | Emergency (ER) | payer MEDICARE, BC ==
[2023-03-14 18:44] VITALS: BP 184/96; PULSE 71; TEMP 97.8
--- NOTE | 2023-03-14 20:20 | XR ---
EXAMINATION TYPE: XR chest 2V DATE OF EXAM: 03/14/2023 8:11 PM COMPARISON: Chest radiographs from 09/10/2022 TECHNIQUE: XR chest 2V Frontal and lateral views of the chest. CLINICAL INDICATION:Male, 82 years old with history of difficulty breathing; FINDINGS: Lungs/Pleura: Prominent interstitial lung markings are seen scattered throughout the lungs. No eviden ce of focal consolidation, pneumothorax or pleural effusion. Pulmonary vascularity: Unremarkable. Heart/mediastinum: Cardiomediastinal silhouette is unremarkable. Musculoskeletal: No acute osseous pathology. Midline sternotomy wires are noted. IMPRESSION: No acute cardiopulmonary disease/process.
[2023-03-14 20:21] LABS: Basophils % (A) 0 %; Eosinophils # (A) 0.3 k/uL (0-0.7); Eosinophils % (A) 5 %; HCT 30.5 % (39.0-53.0); HGB 10.6 gm/dL (13.0-17.5); Lymphocytes # (A) 1.6 k/uL (1.0-4.8); Lymphocytes % (A) 28 %; MCH 31.3 pg (25.0-35.0); MCHC 34.9 g/dL (31.0-37.0); MCV 89.7 fL (80.0-100.0); Mean Platelet Volume 7.6; Monocytes # (A) 0.3 k/uL (0-1.0); Monocytes % (A) 5 %; Neutrophils # (A) 3.5 k/uL (1.3-7.7); Neutrophils % (A) 59 %; Platelet Count 231 k/uL (150-450); RDW 12.8 % (11.5-15.5); WBC 5.9 k/uL (3.8-10.6)
[2023-03-14 20:34] LABS: INR 1.1 (<1.2); Partial Thromboplastin Time 26.7 sec (22.0-30.0); Prothrombin Time 11.5 sec (9.0-12.0)
[2023-03-14 20:38] LABS: ALT 16 U/L (4-49); AST 26 U/L (17-59); African American GFR (CKD) 56 (>60 ml/min/1.73 sqM); Albumin 4.2 g/dL (3.5-5.0); Alkaline Phosphatase 84 U/L (38-126); Anion Gap 13 mmol/L; Blood Urea Nitrogen 12 mg/dL (9-20); Calcium 9.3 mg/dL (8.4-10.2); Carbon Dioxide 26 mmol/L (22-30); Chloride 98 mmol/L (98-107); Glucose 136 mg/dL (74-99); Non-African American GFR(CKD) 48 (>60 ml/min/1.73 sqM); Potassium 3.2 mmol/L (3.5-5.1); Sodium 137 mmol/L (137-145); Total Bilirubin 0.6 mg/dL (0.2-1.3); Total Protein 7.1 g/dL (6.3-8.2)
--- NOTE | 2023-03-14 21:52 | ED ---
General Adult HPI - General Chief complaint: Recheck/Abnormal Lab/Rx Stated complaint: high blood pressure body aches upset stomach Time Seen by Provider: 03/14/23 18:45 Source: patient Mode of arrival: ambulatory Limitations: no limitations - History of Present Illness Initial comments: 82-year-old male with past history of coronary artery disease status post bypass, hypertension, hyperlipidemia who reports to shortness of breath and high blood pressure. States that over the past couple of days he has had full body aching, shortness of breath and high blood pressure. He denies fevers or chills. No sick contacts. Denies chest pain. No lower extremity swelling. No calf pain. No history of DVT or PE. He is not on any blood thinners. Patient has been taking his blood pressure medications as directed however states that he has been suffering from high blood pressure. No nausea or vomiting. 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 - Related Data Home Medications Medication Instructions Recorded Confirmed Aspirin EC [Ecotrin Low Dose] 81 mg PO DAILY 07/29/16 09/11/22 Simvastatin [Zocor] 20 mg PO DAILY 04/21/19 09/11/22 Octreotide Acetate,Mi-Spheres 10 mg IM QMONTHLY 03/26/21 09/11/22 [SandoSTATIN LAR [place]] Octreotide Acetate,Mi-Spheres 30 mg IM QMONTHLY 03/26/21 09/11/22 [SandoSTATIN LAR [place]] Fludrocortisone [Florinef] 0.1 mg PO BID 11/09/21 09/11/22 Diphenoxylate HCl/Atropine 1 - 2 tab PO QID 04/30/22 09/11/22 [Lomotil 2.5-0.025 mg Tablet] Omeprazole [PriLOSEC] 40 mg PO DAILY 04/30/22 09/11/22 DULoxetine HCL [Cymbalta] 60 mg PO BID 09/11/22 09/11/22 Famotidine [Pepcid] 20 mg PO DAILY 09/11/22 09/11/22 Loratadine [Claritin] 10 mg PO DAILY 09/11/22 09/11/22 Midodrine [ProAmatine] 5 mg PO TID 09/11/22 09/11/22 Montelukast [Singulair] 10 mg PO DAILY 09/11/22 09/11/22 Potassium Chloride ER [K-Dur 10] 10 meq PO DAILY 09/11/22 09/11/22 Tamsulosin HCl [Flomax] 0.4 mg PO DAILY 09/11/22 09/11/22 Previous Rx's Medication Instructions Recorded QUEtiapine XR [SEROquel XR] 200 mg PO HS #1 tab 11/16/21 Allergies Allergy/AdvReac Type Severity Reaction Status Date / Time No Known Allergies Allergy Verified 03/14/23 18:44 Review of Systems ROS Statement: Those systems with pertinent positive or pertinent negative responses have been documented in the HPI. ROS Other: All systems not noted in ROS Statement are negative. 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 Past Anesthesia/Blood Transfusion Reactions: No Reported Reaction Past Psychological History: No Psychological Hx Reported Smoking Status: Former smoker, Light tobacco smoker Past Alcohol Use History: None Reported Past Drug Use History: None Reported - Past Family History Father Family Medical History: Myocardial Infarction (UT) Additional Family Medical History / Comment(s): Pt did not know his father but they were told he of a UT at the age of 42 yrs. Mother Family Medical History: Vascular Disorder Additional Family Medical History / Comment(s): Mother at age 68yrs, pt was told possible d/t ruptured aneurysm in her neck. General Exam Limitations: no limitations General appearance: alert, in no apparent distress Head exam: Present: atraumatic, normocephalic, normal inspection Eye exam: Present: normal appearance, PERRL, EOMI. Absent: scleral icterus, conjunctival injection, periorbital swelling ENT exam: Present: normal exam, mucous membranes moist Neck exam: Present: normal inspection. Absent: tenderness, meningismus, lymp hadenopathy Respiratory exam: Present: normal lung sounds bilaterally. Absent: respiratory distress, wheezes, rales, rhonchi, stridor Cardiovascular Exam: Present: regular rate, normal rhythm, normal heart sounds. Absent: systolic murmur, diastolic murmur, rubs, gallop, clicks GI/Abdominal exam: Present: soft, normal bowel sounds. Absent: distended, tenderness, guarding, rebound, rigid Extremities exam: Present: normal inspection, full ROM, normal capillary refill. Absent: tenderness, pedal edema, joint swelling, calf tenderness Back exam: Present: normal inspection Neurological exam: Present: alert, oriented X3, CN II-XII intact Psychiatric exam: Present: normal affect, normal mood Skin exam: Present: warm, dry, intact, normal color. Absent: rash Course Vital Signs 03/14/23 03/14/23 18:41 22:17 Temperature 97.8 F Pulse Rate 71 Respiratory 18 20 Rate Blood Pressure 184/96 O2 Sat by Pulse 100 95 Oximetry Medical Decision Making - Medical Decision Making Was pt. sent in by a medical professional or institution (, PA, SILVER CHASER, urgent care, hospital, or fdc...) When possible be specific @ -No Did you speak to anyone other than the patient for history (EMS, parent, family, police, friend...)? What history was obtained from this source @ -No Did you review nursing and triage notes (agree or disagree)? Why? @ -I reviewed and agree with nursing and triage notes Were old charts reviewed (outside hosp., previous admission, EMS record, old EKG, old radiological studies, urgent care reports/EKG's, fdc records)? Report findings @ -Old charts were reviewed. I reviewed the patient's latest discharge summary, echo for which she was evaluated for similar complaint Differential Diagnosis (chest pain, altered mental status, abdominal pain women, abdominal pain men, vaginal bleeding, weakness, fever, dyspnea, syncope, headache, dizziness, GI bleed, back pain, seizure, CVA, palpatations, mental health, musculoskeletal)? @ -Differential Dyspnea: Coronary syndrome, arrhythmia, tamponade, asthma, COPD, pulmonary embolism, pneumonia, pneumothorax, pulmonary effusion, anaphylaxis, diabetic ketoacidosis, flailed chest, pulmonary contusion, diaphragmatic rupture, anemia, neuromuscular, this is not meant to be an all-inclusive list. EKG interpreted by me (3pts min.). @ -EKG interpreted by me demonstrates sinus rhythm with a rate of 67. DE [id number]. QRS 89. QTC of 357. Mild ST depression 2, 3 as well as V3 throug h V6. No acute ST segment elevation X-rays interpreted by me (1pt min.). @ -Yes and demonstrates no acute process CT interpreted by me (1pt min.). @ -None done U/S interpreted by me (1pt. min.). @ -None done What testing was considered but not performed or refused? (CT, X-rays, U/S, labs)? Why? @ -CT however patient refused What meds were considered but not given or refused? Why? @ -None Did you discuss the management of the patient with other professionals (professionals i.e. , PA, SILVER CHASER, lab, RT, psych nurse, web content & social media manager, tire rebuilder, teacher, operations officer, supervisor case loading)? Give summary @ -No Was smoking cessation discussed for >3mins.? @ -No Was critical care preformed (if so, how long)? @ -No Were there social determinants of health that impacted care today? How? (H omelessness, low income, unemployed, alcoholism, drug addiction, transportation, low edu. Level, literacy, decrease access to med. care, fpc, rehab)? @ -No Was there de-escalation of care discussed even if they declined (Discuss DNR or withdrawal of care, Hospice)? DNR status @ -No What co-morbidities impacted this encounter? (DM, HTN, Smoking, COPD, CAD, Cancer, CVA, ARF, Chemo, Hep., AIDS, mental health diagnosis, sleep apnea, morbid obesity)? @ -Coronary artery disease Was patient admitted / discharged? Hospital course, mention meds given and route, prescriptions, significant lab abnormalities, going to OR and other pertinent info. @ -Upon arrival patient was placed into room 30. Thorough history and physical exam was performed. IV access is established laboratory studies were conducted. Troponin is negative. D-dimer is negative. Chest x-ray demonstrates no acute process. Results are discussed the patient. He'll be discharged at this time. He is to follow-up with his primary care doctor for further evaluation of symptoms. He was offered a CT in the emergency department however he refused. He is instructed to return for any new or worsening symptoms. Patient agreeable with the plan and is discharged home in stable condition Undiagnosed new problem with uncertain prognosis? @ -Yes Drug Therapy requiring intensive monitoring for toxicity (Heparin, Nitro, Insulin, Cardizem)? @ -No Were any procedures done? @ -No Diagnosis/symptom? @ -Acute respiratory insufficiency Acute, or Chronic, or Acute on Chronic? @ -Acute Uncomplicated (without systemic symptoms) or Complicated (systemic symptoms)? @ -Complicated Side effects of treatment? @ -No Exacerbation, Progression, or Severe Exacerbation? @ -No Poses a threat to life or bodily function? How? (Chest pain, USA, UT, pneumonia, PE, COPD, DKA, ARF, appy, cholecystitis, CVA, Diverticulitis, Homicidal, Suicidal, threat to staff... and all critical care pts) @ -Possibly. No explained reason for patient's symptoms - Lab Data Result diagrams: 03/14/23 19:50 03/14/23 19:50 Lab Results 03/14/23 03/14/23 03/14/23 Range/Units 19:50 19:50 19:50 WBC 5.9 (3.8-10.6) k/uL RBC 3.40 L (4.30-5.90) m/uL Hgb 10.6 L (13.0-17.5) gm/dL Hct 30.5 L (39.0-53.0) % MCV 89.7 (80.0-100.0) fL MCH 31.3 (25.0-35.0) pg MCHC 34.9 (31.0-37.0) g/dL RDW 12.8 (11.5-15.5) % Plt Count 231 (150-450) k/uL MPV 7.6 Neutrophils % 59 % Lymphocytes % 28 % Monocytes % 5 % Eosinophils % 5 % Basophils % 0 % Neutrophils # 3.5 (1.3-7.7) k/uL Lymphocytes # 1.6 (1.0-4.8) k/uL Monocytes # 0.3 (0-1.0) k/uL Eosinophils # 0.3 (0-0.7) k/uL Basophils # 0.0 (0-0.2) k/uL PT 11.5 (9.0-12.0) sec INR 1.1 (<1.2) APTT 26.7 (22.0-30.0) sec D-Dimer 0.48 (<0.60) mg/L FEU Sodium 137 (137-145) mmol/L Potassium 3.2 L (3.5-5.1) mmol/L Chloride 98 (98-107) mmol/L Carbon Dioxide 26 (22-30) mmol/L Anion Gap 13 mmol/L BUN 12 (9-20) mg/dL Creatinine 1.35 H (0.66-1.25) mg/dL Est GFR (CKD-EPI)AfAm 56 (>60 ml/min/1.73 sqM) Est GFR (CKD-EPI)NonAf 48 (>60 ml/min/1.73 sqM) Glucose 136 H (74-99) mg/dL Calcium 9.3 (8.4-10.2) mg/dL Total Bilirubin 0.6 (0.2-1.3) mg/dL AST 26 (17-59) U/L ALT 16 (4-49) U/L Alkaline Phosphatase 84 (38-126) U/L Troponin I (0.000-0.034) ng/mL NT-Pro-B Natriuret Pep pg/mL Total Protein 7.1 (6.3-8.2) g/dL Albumin 4.2 (3.5-5.0) g/dL 03/14/23 03/14/23 Range/Units 19:50 19:50 WBC (3.8-10.6) k/uL RBC (4.30-5.90) m/uL Hgb (13.0-17.5) gm/dL Hct (39.0-53.0) % MCV (80.0-100.0) fL MCH (25.0-35.0) pg MCHC (31.0-37.0) g/dL RDW (11.5-15.5) % Plt Count (150-450) k/uL MPV Neutrophils % % Lymphocytes % % Monocytes % % Eosinophils % % Basophils % % Neutrophils # (1.3-7.7) k/uL Lymphocytes # (1.0-4.8) k/uL Monocytes # (0-1.0) k/uL Eosinophils # (0-0.7) k/uL Basophils # (0-0.2) k/uL PT (9.0-12.0) sec INR (<1.2) APTT (22.0-30.0) sec D-Dimer (<0.60) mg/L FEU Sodium (137-145) mmol/L Potassium (3.5-5.1) mmol/L Chloride (98-107) mmol/L Carbon Dioxide (22-30) mmol/L Anion Gap mmol/L BUN (9-20) mg/dL Creatinine (0.66-1.25) mg/dL Est GFR (CKD-EPI)AfAm (>60 ml/min/1.73 sqM) Est GFR (CKD-EPI)NonAf (>60 ml/min/1.73 sqM) Glucose (74-99) mg/dL Calcium (8.4-10.2) mg/dL Total Bilirubin (0.2-1.3) mg/dL AST (17-59) U/L ALT (4-49) U/L Alkaline Phosphatase (38-126) U/L Troponin I <0.012 (0.000-0.034) ng/mL NT-Pro-B Natriuret Pep 917 pg/mL Total Protein (6.3-8.2) g/dL Albumin (3.5-5.0) g/dL Disposition Clinical Impression: Acute respiratory insufficiency Disposition: HOME SELF-CARE Condition: Stable Instructions (If sedation given, give patient instructions): Shortness of Breath (ED) Additional Instructions: Please follow-up with your heart doctor for your high blood pressure and sh ortness of breath. If you are taking midodrine at home, stop taking it while your blood pressure is reading high. Keep a log. You can take magnesium oxide 400 mg daily for your restless legs and please return for any new or worsening symptoms Is patient prescribed a controlled substance at d/c from ED?: No Referrals: Kenneth Luciano MD [Primary Care Provider] - 1-2 days Maximus Gould MD [STAFF PHYSICIAN] - 1-2 days Time of Disposition: 21:52
[2023-03-14 22:18] VITALS: RESP 20
== END 2023-03-14 22:18 | disposition home or self-care (01) ==
LOC: EC 18:27
DX: J96.00 Acute respiratory failure, unspecified whether with hypoxia or hypercapnia (principal); I25.10 Atherosclerotic heart disease of native coronary artery without angina pectoris; K21.9 Gastro-esophageal reflux disease without esophagitis; E78.5 Hyperlipidemia, unspecified; I10 Essential (primary) hypertension; M19.90 Unspecified osteoarthritis, unspecified site; F17.200 Nicotine dependence, unspecified, uncomplicated; Z79.82 Long term (current) use of aspirin; Z79.899 Other long term (current) drug therapy
CPT/HCPCS: 36415; 71046; 80053; 83880; 84484; 85025; 85379; 85610; 85730; 93005; 99284

== ENCOUNTER 2023-03-16 02:45 | Observation (INO) | payer MEDICARE, BC ==
[2023-03-16] MEDS ORDERED: SODIUM CHLORIDE 0.9% 500 ML 500 ML IV STA (03:46)
[2023-03-16] MEDS ORDERED: LABETALOL 5 MG/ML VIAL MDV IVP STA (03:48)
[2023-03-16 04:55] LABS: Basophils % (A) 0 %; Eosinophils # (A) 0.6 k/uL (0-0.7); Eosinophils % (A) 8 %; HGB 11.9 gm/dL (13.0-17.5); Lymphocytes # (A) 2.1 k/uL (1.0-4.8); Lymphocytes % (A) 29 %; MCH 31.5 pg (25.0-35.0); MCV 89.9 fL (80.0-100.0); Mean Platelet Volume 7.3; Monocytes # (A) 0.3 k/uL (0-1.0); Monocytes % (A) 5 %; Neutrophils % (A) 57 %; Platelet Count 244 k/uL (150-450); RBC 3.78 m/uL (4.30-5.90); RDW 12.6 % (11.5-15.5); WBC 7.1 k/uL (3.8-10.6)
[2023-03-16 05:10] LABS: ALT 17 U/L (4-49); AST 30 U/L (17-59); African American GFR (CKD) 50 (>60 ml/min/1.73 sqM); Albumin 4.6 g/dL (3.5-5.0); Alkaline Phosphatase 97 U/L (38-126); Anion Gap 14 mmol/L; Blood Urea Nitrogen 19 mg/dL (9-20); Calcium 9.3 mg/dL (8.4-10.2); Carbon Dioxide 28 mmol/L (22-30); Chloride 99 mmol/L (98-107); Glucose 142 mg/dL (74-99); Magnesium 1.6 mg/dL (1.6-2.3); Non-African American GFR(CKD) 43 (>60 ml/min/1.73 sqM); Phosphorus 3.3 mg/dL (2.5-4.5); Sodium 141 mmol/L (137-145); Total Bilirubin 0.8 mg/dL (0.2-1.3); Total Protein 8.1 g/dL (6.3-8.2)
--- NOTE | 2023-03-16 05:17 | XR ---
EXAM: XR Chest, 2 Views CLINICAL HISTORY: ITS.REASON XR Reason: Weakness TECHNIQUE: Frontal and lateral views of the chest. COMPARISON: 03/14/23 FINDINGS: Lungs: Unremarkable. No consolidation. Pleural space: Unremarkable. No pneumothorax. Heart: Unremarkable. No cardiomegaly. Mediastinum: Unremarkable. Bones/joints: Sequela from sternotomy redemonstrated. IMPRESSION: No acute cardiopulmonary process or significant change from prior.
[2023-03-16 05:20] LABS: Prothrombin Time 10.9 sec (9.0-12.0)
[2023-03-16] MEDS ORDERED: POTASSIUM CHLORIDE ER 20 MEQ TAB.ER PO STA (05:22)
[2023-03-16 05:30] LABS: Partial Thromboplastin Time 19.3 sec (22.0-30.0)
[2023-03-16] MEDS ORDERED: SODIUM CHLORIDE 0.9% 1,000 ML IV STA (06:18)
--- NOTE | 2023-03-16 07:22 | ED ---
General Adult HPI <Brennan Thomas - Last Filed: 03/16/23 11:59> - General Source: patient, EMS, RN notes reviewed, old records reviewed Mode of arrival: EMS Limitations: no limitations <Torsten Tidwell - Last Filed: 03/17/23 06:30> - General Chief complaint: Weakness Stated complaint: Generalized Pain Time Seen by Provider: 03/16/23 04:05 - History of Present Illness Initial comments: Patient is an 82-year-old male presents emergency department a bilateral lower extremity pain, numbness as well as poorly controlled hypertension. His hypertension is to 229/119. Denies chest pain. He is endorsing abnormal lower extremity pain as well as intermittent numbness. Denies any shortness of breath, abdominal pain, nausea, vomiting. No other acute complaints at this time. Denies any headaches. States she is not on any blood pressure medications but does notice his blood pressures have been elevated lately. Presents for further evaluation. (Torsten Tidwell) - Related Data Home Medications Medication Instructions Recorded Confirmed Aspirin EC [Ecotrin Low Dose] 81 mg PO DAILY 07/29/16 03/16/23 Simvastatin [Zocor] 20 mg PO DAILY 04/21/19 03/16/23 Octreotide Acetate,Mi-Spheres 10 mg IM QMONTHLY 03/26/21 03/16/23 [SandoSTATIN LAR [place]] Octreotide Acetate,Mi-Spheres 30 mg IM QMONTHLY 03/26/21 03/16/23 [SandoSTATIN LAR [place]] Fludrocortisone [Florinef] 0.1 mg PO BID 11/09/21 03/16/23 Diphenoxylate HCl/Atropine 2 tab PO QID PRN 04/30/22 03/16/23 [Lomotil 2.5-0.025 mg Tablet] Omeprazole [PriLOSEC] 40 mg PO DAILY 04/30/22 03/16/23 DULoxetine HCL [Cymbalta] 60 mg PO BID 09/11/22 03/16/23 Famotidine [Pepcid] 20 mg PO DAILY 09/11/22 03/16/23 Loratadine [Claritin] 10 mg PO DAILY 09/11/22 03/16/23 Midodrine [ProAmatine] 5 mg PO TID 09/11/22 03/16/23 Montelukast [Singulair] 10 mg PO DAILY 09/11/22 03/16/23 Tamsulosin HCl [Flomax] 0.4 mg PO DAILY 09/11/22 03/16/23 Previous Rx's Medication Instructions Recorded QUEtiapine XR [SEROquel XR] 200 mg PO HS #1 tab 11/16/21 Allergies Allergy/AdvReac Type Severity Reaction Status Date / Time No Known Allergies Allergy Verified 03/16/23 13:18 Review of Systems ROS Other: All systems not noted in ROS Statement are negative. <Brennan Thomas - Last Filed: 03/16/23 11:59> ROS Other: All systems not noted in ROS Statement are negative. <Torsten Tidwell - Last Filed: 03/17/23 06:30> ROS Statement: Those systems with pertinent positive or pertinent negative responses have been documented in the HPI. 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 Past Anesthesia/Blood Transfusion Reactions: No Reported Reaction Past Psychological History: No Psychological Hx Reported Smoking Status: Former smoker, Light tobacco smoker Past Alcohol Use History: None Reported Past Drug Use History: None Reported - Past Family History Father Family Medical History: Myocardial Infarction (DC) Additional Family Medical History / Comment(s): Pt did not know his father but they were told he of a DC at the age of 42 yrs. Mother Family Medical History: Vascular Disorder Additional Family Medical History / Comment(s): Mother at age 68yrs, pt was told possible d/t ruptured aneurysm in her neck. <YawTorsten - Last Filed: 03/17/23 06:30> General Exam Limitations: no limitations <YawTorsten - Last Filed: 03/17/23 06:30> - General Exam Comments Initial Comments: General: Appears in no acute distress. HEAD: Normal with no signs of head trauma. EYES: PERRLA, EOMI, conjunctiva normal, no discharge. ENT: Hearing grossly intact, normal oropharynx. RESPIRATORY: Clear breath sounds bilaterally. No wheezes, rales, or rhonchi. C/V: Regular rate and rhythm. S1 and S2 auscultated, no edema, peripheral pulses 2+ and intact throughout ABD: Abd is soft, nontender, nondistended EXT: Normal range of motion, no obvious deformity. No obvious swelling of the lower extremities. Neurovascular intact in the lower extremities. Normal range of motion. Nonspecific pain in the lower extremities. SKIN: No rashes or lesions observed on exposed skin. NEURO: Alert and oriented 4. No focal deficits. Neurovascular intact throughout. Subjective paresthesias in the lower feet. (Torsten Tidwell) Course Vital Signs 03/16/23 03/16/23 03/16/23 02:58 05:42 06:42 Temperature 98.4 F Pulse Rate 81 68 69 Respiratory 18 18 18 Rate Blood Pressure 229/119 182/84 171/55 O2 Sat by Pulse 97 96 96 Oximetry 03/16/23 03/16/23 03/16/23 11:10 12:23 12:30 Temperature Pulse Rate 67 71 69 Respiratory 16 18 18 Rate Blood Pressure 200/106 170/113 170/113 O2 Sat by Pulse 98 99 97 Oximetry 03/16/23 03/16/23 13:18 14:45 Temperature 98.0 F Pulse Rate 66 73 Respiratory 19 17 Rate Blood Pressure 176/92 188/102 O2 Sat by Pulse 96 99 Oximetry Medical Decision Making - Lab Data Result diagrams: 03/16/23 04:40 03/16/23 04:40 <Brennan Thomas - Last Filed: 03/16/23 11:59> - Lab Data Result diagrams: 03/16/23 04:40 03/16/23 04:40 - EKG Data -: EKG Interpreted by Me <Torsten Tidwell - Last Filed: 03/17/23 06:30> - Medical Decision Making CT report reviewed. Blood pressure has elevated again updated 200/106. Additional medications orde red. Patient reevaluated. Patient resting comfortably in bed. Patient states he is not able to walk even at this time. Patient is updated on results and plan. Case was discussed in detail with Dr. Saez, who will admit. He did request cardiology consult for hypertensive urgency I will add computed tomography scan of the brain. Diagnosis: Hypertensive urgency Acute (Brennan Thomas) Was pt. sent in by a medical professional or institution (, PA, CORONER TECHNICIAN, urgent care, hospital, or longterm...) When possible be specific @ -No Did you speak to anyone other than the patient for history (EMS, parent, family, police, friend...)? What history was obtained from this source @ -No Did you review nursing and triage notes (agree or disagree)? Why? @ -I reviewed and agree with nursing and triage notes Were old charts reviewed (outside hosp., previous admission, EMS record, old EKG, old radiological studies, urgent care reports/EKG's, longterm records)? Report findings @ -No old charts were reviewed Differential Diagnosis (chest pain, altered mental status, abdominal pain women, abdominal pain men, vaginal bleeding, weakness, fever, dyspnea, syncope, headache, dizziness, GI bleed, back pain, seizure, CVA, palpatations, mental health, musculoskeletal)? @ -Aortic injury, lower extremity pain, poorly controlled hypertension, this list is not all inclusive. EKG interpreted by me (3pts min.). @ -As above X-rays interpreted by me (1pt min.). @ -X-ray revealed no acute cardio pulmonary process. CT interpreted by me (1pt min.). @ -CT pending. U/S interpreted by me (1pt. min.). @ -None done What testing was considered but not performed or refused? (CT, X-rays, U/S, labs)? Why? @ -None What meds were considered but not given or refused? Why? @ -None Did you discuss the management of the patient with other professionals (professionals i.e. , PA, CORONER TECHNICIAN, lab, RT, psych nurse, director social welfare, aligner, teacher, aeronautical engineering officer, showcase maker)? Give summary @ -No Was smoking cessation discussed for >3mins.? @ -No Was critical care preformed (if so, how long)? @ -No Were there social determinants of health that impacted care today? How? (Homelessness, low income, unemployed, alcoholism, drug addiction, transp ortation, low edu. Level, literacy, decrease access to med. care, senior living, rehab)? @ -No Was there de-escalation of care discussed even if they declined (Discuss DNR or withdrawal of care, Hospice)? DNR status @ -No What co-morbidities impacted this encounter? (DM, HTN, Smoking, COPD, CAD, Cancer, CVA, ARF, Chemo, Hep., AIDS, mental health diagnosis, sleep apnea, morbid obesity)? @ -None Was patient admitted / discharged? Hospital course, mention meds given and route, prescriptions, significant lab abnormalities, going to OR and other pertinent info. @ -Based on the patient's presentation and physical exam, I'm concerned for possible vascular injury the patient's lower extremity is concerning he is having intermittent nonspecific pain and numbness over the last day. He is actually hypertensive. We'll obtain CT angiogram with runoff to evaluate for any evidence of dissection. He was in agreement with this plan. We also obtain basic labs. He'll be given IV fluids as well as labetalol for his blood pressure. He was in agreement this plan. Vital signs remarkable for hypertension. There was a long delay in obtaining labs. Patient was a difficult IV access. Eventually these were obtained and were remarkable for a chronic anemia with a hemoglobin of 11.9. Patient is hypokalemic at 3.0 and this was replenished. CK D. Troponin indeterminate. X-ray unremarkable. CT imaging still pending. Patient's blood pressure did improve with 1 dose of [address] imaging still pending. Signed out to physician Dr. Thomas for further care. Patient likely will be admitted. Undiagnosed new problem with uncertain prognosis? @ -No Drug Therapy requiring intensive monitoring for toxicity (Heparin, Nitro, Insulin, Cardizem)? @ -No Were any procedures done? @ -No (Torsten Tidwell) - Lab Data Lab Results 03/16/23 03/16/23 03/16/23 Range/Units 04:40 04:40 04:40 WBC 7.1 (3.8-10.6) k/uL RBC 3.78 L (4.30-5.90) m/uL Hgb 11.9 L (13.0-17.5) gm/dL Hct 34.0 L (39.0-53.0) % MCV 89.9 (80.0-100.0) fL MCH 31.5 (25.0-35.0) pg MCHC 35.0 (31.0-37.0) g/dL RDW 12.6 (11.5-15.5) % Plt Count 244 (150-450) k/uL MPV 7.3 Neutrophils % 57 % Lymphocytes % 29 % Monocytes % 5 % Eosinophils % 8 % Basophils % 0 % Neutrophils # 4.0 (1.3-7.7) k/uL Lymphocytes # 2.1 (1.0-4.8) k/uL Monocytes # 0.3 (0-1.0) k/uL Eosinophils # 0.6 (0-0.7) k/uL Basophils # 0.0 (0-0.2) k/uL PT 10.9 (9.0-12.0) sec INR 1.0 (<1.2) APTT 19.3 L (22.0-30.0) sec Sodium 141 (137-145) mmol/L Potassium 3.0 L (3.5-5.1) mmol/L Chloride 99 (98-107) mmol/L Carbon Dioxide 28 (22-30) mmol/L Anion Gap 14 mmol/L BUN 19 (9-20) mg/dL Creatinine 1.49 H (0.66-1.25) mg/dL Est GFR (CKD-EPI)AfAm 50 (>60 ml/min/1.73 sqM) Est GFR (CKD-EPI)NonAf 43 (>60 ml/min/1.73 sqM) Glucose 142 H (74-99) mg/dL Estimated Ave Glu mg/dL mg/dL Hemoglobin A1c (<=6.0) % Plasma Lactic Acid J Carlos (0.7-2.0) mmol/L Calcium 9.3 (8.4-10.2) mg/dL Phosphorus 3.3 (2.5-4.5) mg/dL Magnesium 1.6 (1.6-2.3) mg/dL Total Bilirubin 0.8 (0.2-1.3) mg/dL AST 30 (17-59) U/L ALT 17 (4-49) U/L Alkaline Phosphatase 97 (38-126) U/L Creatine Kinase (35-257) U/L Troponin I (0.000-0.034) ng/mL Total Protein 8.1 (6.3-8.2) g/dL Albumin 4.6 (3.5-5.0) g/dL TSH 1.270 (0.465-4.680) mIU/L Urine Color Urine Appearance (Clear) Urine pH (5.0-8.0) Ur Specific [place] (1.001-1.035) Urine Protein (Negative) Urine Glucose (UA) (Negative) Urine Ketones (Negative) Urine Blood (Negative) Urine Nitrite (Negative) Urine Bilirubin (Negative) Urine Urobilinogen (<2.0) mg/dL Ur Leukocyte Esterase (Negative) 03/16/23 03/16/23 03/16/23 Range/Units 04:40 04:40 04:40 WBC (3.8-10.6) k/uL RBC (4.30-5.90) m/uL Hgb (13.0-17.5) gm/dL Hct (39.0-53.0) % MCV (80.0-100.0) fL MCH (25.0-35.0) pg MCHC (31.0-37.0) g/dL RDW (11.5-15.5) % Plt Count (150-450) k/uL MPV Neutrophils % % Lymphocytes % % Monocytes % % Eosinophils % % Basophils % % Neutrophils # (1.3-7.7) k/uL Lymphocytes # (1.0-4.8) k/uL Monocytes # (0-1.0) k/uL Eosinophils # (0-0.7) k/uL Basophils # (0-0.2) k/uL PT (9.0-12.0) sec INR (<1.2) APTT (22.0-30.0) sec Sodium (137-145) mmol/L Potassium (3.5-5.1) mmol/L Chloride (98-107) mmol/L Carbon Dioxide (22-30) mmol/L Anion Gap mmol/L BUN (9-20) mg/dL Creatinine (0.66-1.25) mg/dL Est GFR (CKD-EPI)AfAm (>60 ml/min/1.73 sqM) Est GFR (CKD-EPI)NonAf (>60 ml/min/1.73 sqM) Glucose (74-99) mg/dL Estimated Ave Glu mg/dL 134 mg/dL Hemoglobin A1c 6.3 H (<=6.0) % Plasma Lactic Acid J Carlos 1.6 (0.7-2.0) mmol/L Calcium (8.4-10.2) mg/dL Phosphorus (2.5-4.5) mg/dL Magnesium (1.6-2.3) mg/dL Total Bilirubin (0.2-1.3) mg/dL AST (17-59) U/L ALT (4-49) U/L Alkaline Phosphatase (38-126) U/L Creatine Kinase (35-257) U/L Troponin I 0.014 (0.000-0.034) ng/mL Total Protein (6.3-8.2) g/dL Albumin (3.5-5.0) g/dL TSH (0.465-4.680) mIU/L Urine Color Urine Appearance (Clear) Urine pH (5.0-8.0) Ur Specific [place] (1.001-1.035) Urine Protein (Negative) Urine Glucose (UA) (Negative) Urine Ketones (Negative) Urine Blood (Negative) Urine Nitrite (Negative) Urine Bilirubin (Negative) Urine Urobilinogen (<2.0) mg/dL Ur Leukocyte Esterase (Negative) 03/16/23 03/16/23 Range/Units 04:40 06:44 WBC (3.8-10.6) k/uL RBC (4.30-5.90) m/uL Hgb (13.0-17.5) gm/dL Hct (39.0-53.0) % MCV (80.0-100.0) fL MCH (25.0-35.0) pg MCHC (31.0-37.0) g/dL RDW (11.5-15.5) % Plt Count (150-450) k/uL MPV Neutrophils % % Lymphocytes % % Monocytes % % Eosinophils % % Basophils % % Neutrophils # (1.3-7.7) k/uL Lymphocytes # (1.0-4.8) k/uL Monocytes # (0-1.0) k/uL Eosinophils # (0-0.7) k/uL Basophils # (0-0.2) k/uL PT (9.0-12.0) sec INR (<1.2) APTT (22.0-30.0) sec Sodium (137-145) mmol/L Potassium (3.5-5.1) mmol/L Chloride (98-107) mmol/L Carbon Dioxide (22-30) mmol/L Anion Gap mmol/L BUN (9-20) mg/dL Creatinine (0.66-1.25) mg/dL Est GFR (CKD-EPI)AfAm (>60 ml/min/1.73 sqM) Est GFR (CKD-EPI)NonAf (>60 ml/min/1.73 sqM) Glucose (74-99) mg/dL Estimated Ave Glu mg/dL mg/dL Hemoglobin A1c (<=6.0) % Plasma Lactic Acid J Carlos (0.7-2.0) mmol/L Calcium (8.4-10.2) mg/dL Phosphorus (2.5-4.5) mg/dL Magnesium (1.6-2.3) mg/dL Total Bilirubin (0.2-1.3) mg/dL AST (17-59) U/L ALT (4-49) U/L Alkaline Phosphatase (38-126) U/L Creatine Kinase 169 (35-257) U/L Troponin I (0.000-0.034) ng/mL Total Protein (6.3-8.2) g/dL Albumin (3.5-5.0) g/dL TSH (0.465-4.680) mIU/L Urine Color Colorless Urine Appearance Clear (Clear) Urine pH 7.0 (5.0-8.0) Ur Specific [place] 1.004 (1.001-1.035) Urine Protein Negative (Negative) Urine Glucose (UA) Negative (Negative) Urine Ketones Negative (Negative) Urine Blood Negative (Negative) Urine Nitrite Negative (Negative) Urine Bilirubin Negative (Negative) Urine Urobilinogen <2.0 (<2.0) mg/dL Ur Leukocyte Esterase Negative (Negative) - EKG Data EKG Comments: 12-lead Electrocardiogram Interpretation Note EKG was reviewed and interpreted by myself. 12-lead ECG performed at 0738 is interpreted by me as revealing normal sinus rhythm at a rate of 70 beats per minute. [place] is normal. [place] interval is 166 ms, QRS duration is 82 ms, QTc is 419 ms.. There were no ST or T wave abnormalities to suggest myocardial ischemia or injury. R wave progression across the precordium was satisfactory. By my interpretation this EKG is non-diagnostic for acute ischemia. (Torsten Tidwell) Disposition Is patient prescribed a controlled substance at d/c from ED?: No Time of Disposition: 12:01 <Brennan Thomas - Last Filed: 03/16/23 11:59> <Torsten Tidwell - Last Filed: 03/17/23 06:30> Clinical Impression: Hypertensive urgency Disposition: ADMITTED IP TO THIS HOSP
[2023-03-16 07:31] LABS: Appearance,Urine Clear (Clear); Bilirubin,Urine Negative (Negative); Blood,Urine Negative (Negative); Color,Urine Colorless; Glucose,Urine (UA) Negative (Negative); Ketones,Urine Negative (Negative); Leukocyte Esterase,Urine Negative (Negative); Nitrite,Urine Negative (Negative); Protein,Urine Negative (Negative); Specific Gravity,Urine 1.004 (1.001-1.035); Urobilinogen,Urine <2.0 mg/dL (<2.0)
--- NOTE | 2023-03-16 10:13 | CT ---
EXAMINATION TYPE: CT angio tho/abd W Run Off DATE OF EXAM: 03/16/2023 COMPARISON: CT abdomen February 25, 2023. CTA chest September 11, 2022 HISTORY: Bilateral leg weakness and numbness with pain and hypertension. CT DLP: 2225.7 mGycm, Automated Exposure Control for Dose Reduction was Utilized. CONTRAST: CTA scan of the thorax abdomen and pelvis with bilateral lower extremity runoff is performed with ora l and without and with IV Contrast, patient injected with 80ml mL of Isovue 370. Three-D reconstructe d images are created on an independent workstation and reviewed. FINDINGS: Vascular: No suspicious hyperdense material to suggest intramural hematoma. Normal three-vessel origi n from the aortic arch without significant stenosis. Normal origin celiac artery and SMA without sign ificant stenosis. Single bilateral renal arteries without significant stenosis. Patent COCO. Mild to m oderate peripheral mixed plaque in the abdominal aorta. No significant stenosis. Mild peripheral plaq ue in the common iliac arteries bilaterally. No significant stenosis in the common or external iliac arteries. Mild to moderate peripheral plaque right common femoral artery without significant stenosis . No significant plaque or stenosis left common femoral artery. No significant plaque or stenosis in the proximal and mid superficial femoral arteries bilaterally. Mild to moderate peripheral plaque in the distal superficial femoral arteries extending into the popl iteal arteries without significant stenosis. Satisfactory bifurcation trifurcation bilaterally. There is good three-vessel flow in the mid legs bilaterally. There is good two-vessel flow in the mid to d istal legs. Suboptimal bolus passes point Limited evaluation of the distal tibial metaphyseal level. No linear hypodensity to suggest dissection in the aorta. Lungs: Dependent opacity favors atelectatic change. Mediastinum: Post-CABG changes with sternal wires and mediastinal clips are redemonstrated. No cardio megaly or pericardial effusion. Other: Left greater than right subareolar gynecomastia is present. LIVER/GB: Cholecystectomy clips are seen. PANCREAS: At least moderate atrophy. SPLEEN: No significant abnormality is seen. ADRENALS: No significant abnormality is seen. KIDNEYS: Cortical thinning in both kidneys. Single 3 mm upper pole calculus left kidney axial image 6 0. No hydronephrosis seen bilaterally. BOWEL: Small to moderate size hiatal hernia. Bowel anastomosis anterior right upper pelvis axial imag e 55. No suspicious bowel dilatation. PROSTATE/SEMINAL VESICLES: Numerous brachytherapy seeds throughout normal-sized prostate. Penile pump is present. LYMPH NODES: No greater than 1cm abdominal or pelvic lymph nodes are appreciated. OSSEOUS STRUCTURES: No significant abnormality is seen. Lower extremities: Postsurgical change to the distal fibula with lateral fixating plate is seen. Ther e are surgical clips posterior medially popliteal region in the right knee. OTHER: No significant additional abnormality is seen. IMPRESSION: 1. No aortic dissection. No significant stenosis from thorax to the distal leg level. Suboptimal eval uation below distal leg level. 2. No acute findings are evident.
[2023-03-16] MEDS ORDERED: ENALAPRILAT 1.25 MG/ML 1 ML VIAL IVP STA (11:49)
[2023-03-16] MEDS ORDERED: NALOXONE 0.4 MG/ML 1 ML VIAL IV PRN (12:04)
--- NOTE | 2023-03-16 13:23 | CT ---
EXAMINATION TYPE: CT brain wo con DATE OF EXAM: 03/16/2023 HISTORY: Weakness. CT DLP: 1131.4 mGycm. Automated Exposure Control for Dose Reduction was Utilized. TECHNIQUE: CT scan of the head is performed without contrast. COMPARISON: CT brain September 10, 2022. FINDINGS: There is no acute intracranial hemorrhage or midline shift identified. There is mild-to-m oderate diffuse ventricular and sulcal prominence redemonstrated. There is moderate to severe low-at tenuation in the deep and periventricular white matter redemonstrated. The globes are intact and the visualized sinuses are clear. There is now marked heterogeneous perhaps enhancing tissue completel y filling the right external auditory canal without definitive bony destruction partially opacified m astoid air cells bilaterally are new on the right. IMPRESSION: No acute intracranial hemorrhage or midline shift. There is mild to moderate diffuse ce rebral atrophy and moderate to severe chronic small vessel ischemic change redemonstrated. No signifi cant change from most recent prior CT. New heterogeneous enhancing tissue completely occluding right external auditory canal. Mass or neoplasm at this level cannot be excluded. Advise direct visualizat ion to further evaluate.
--- NOTE | 2023-03-16 15:03 | P.CNNES ---
History of Present Illness Consult date: 03/16/23 Requesting physician: Brennan Thomas Reason for Consult: leg weakness History of Present Illness: This is an 82-year-old gentleman with history of colon cancer, syncopal episode hypertension, CABG who presented emergency department because of leg weakness. History was somewhat difficult to be retrieved from the patient since at times he seems inconsistent. He stated that he has a new lower posterior lower back pain and he stated that happened within the last 1 week and he felt his leg is weak in the same duration. He states he's been having falls. He denies any head injury. He denies any passing out. I asked him about passing out multiple times and he denied it and and he states that he is only following. He denies any weakness of the upper extremity. Denies any bowel or urinary issues. He states that he has a cane or walker at home but does not use them. Also seems to the patient had that CT abdomen and pelvis without contrast on 02/25/2023 which is reported as some possible focal mural thickening along the anterior wall of the cecum versus solid stool material. Sigmoid diverticulosis. Correlate for recurrent moderate size hiatal hernia. Of note I personally seen the patient in November 2021 for confusion and one of the possibilities was his uncontrolled hypertension. At that time he had an EEG which was normal. Please refer to my notes for the details Some of the workup during this hospital visit consisted of: He presented with blood pressure of 229/119. TSH: 1.270 Calcium, magnesium, phosphorus, sodium within normal limits. Review of Systems Review of system: The 12 point system was reviewed and apparent positive and negative per HPI. 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 Past Anesthesia/Blood Transfusion Reactions: No Reported Reaction Past Psychological History: No Psychological Hx Reported Smoking Status: Former smoker, Light tobacco smoker Past Alcohol Use History: None Reported Past Drug Use History: None Reported - Past Family History Father Family Medical History: Myocardial Infarction ([place]) Additional Family Medical History / Comment(s): Pt did not know his father but they were told he of a ID at the age of 42 yrs. Mother Family Medical History: Vascular Disorder Additional Family Medical History / Comment(s): Mother at age 68yrs, pt was told possible d/t ruptured aneurysm in her neck. Medications and Allergies Home Medications Medication Instructions Recorded Confirmed Type Aspirin EC [Ecotrin Low Dose] 81 mg PO DAILY 07/29/16 03/16/23 History Simvastatin [Zocor] 20 mg PO DAILY 04/21/19 03/16/23 History Octreotide Acetate,Mi-Spheres 10 mg IM QMONTHLY 03/26/21 03/16/23 History [SandoSTATIN LAR Depot] Octreotide Acetate,Mi-Spheres 30 mg IM QMONTHLY 03/26/21 03/16/23 History [SandoSTATIN LAR Depot] Fludrocortisone [Florinef] 0.1 mg PO BID 11/09/21 03/16/23 History QUEtiapine XR [SEROquel XR] 200 mg PO HS #1 tab 11/16/21 03/16/23 Rx Diphenoxylate HCl/Atropine 2 tab PO QID PRN 04/30/22 03/16/23 History [Lomotil 2.5-0.025 mg Tablet] Omeprazole [PriLOSEC] 40 mg PO DAILY 04/30/22 03/16/23 History DULoxetine HCL [Cymbalta] 60 mg PO BID 09/11/22 03/16/23 History Famotidine [Pepcid] 20 mg PO DAILY 09/11/22 03/16/23 History Loratadine [Claritin] 10 mg PO DAILY 09/11/22 03/16/23 History Midodrine [ProAmatine] 5 mg PO TID 09/11/22 03/16/23 History Montelukast [Singulair] 10 mg PO DAILY 09/11/22 03/16/23 History Tamsulosin HCl [Flomax] 0.4 mg PO DAILY 09/11/22 03/16/23 History Allergies Allergy/AdvReac Type Severity Reaction Status Date / Time No Known Allergies Allergy Verified 03/16/23 13:18 Physical Examination - Vital Signs Vital Signs: Vital Signs Temp Pulse Resp BP Pulse Ox 03/16/23 14:45 98.0 F 73 17 188/102 99 03/16/23 13:18 66 19 176/92 96 03/16/23 12:30 69 18 170/113 97 03/16/23 12:23 71 18 170/113 99 03/16/23 11:10 67 16 200/106 98 03/16/23 06:42 69 18 171/55 96 03/16/23 05:42 68 18 182/84 96 03/16/23 02:58 98.4 F 81 18 229/119 97 Intake and Output 03/15/23 03/16/23 03/16/23 22:59 06:59 14:59 Other: Weight 72.575 kg GENERAL: The patient is lying in bed and is not in acute distress. NEUROLOGICAL: Higher mental function: The patient is awake, alert, oriented to self, place and time. Patient is following commands. No aphasia and no neglect. Cranial nerves: The pupils are round, equal and reactive to light and acco mmodation. Visual laboy are full to confrontation throughout. Extraocular movement is intact no nystagmus is noted. Facial sensation is normal to touch throughout. The facial strength is normal throughout. Hearing is normal bilaterally to hand rub. Tongue is midline and moved [id number] without any difficulty. No dysarthria is noted. Shoulder shrug is normal bilaterally. Motor: Gait was assisted by nursing staff and patient was unsteady walking but was not leaning towards either side. The strength is 5 over 5 throughout. Normal tone and bulk. Cerebellum: Normal finger to nose bilaterally. Sensation: Sensation is normal to touch throughout. Reflexes (right/left):2+ in uppers while lowers are 1+. Plantars are mute bilaterally. Results - Laboratory Findings CBC and BMP: 03/16/23 04:40 03/16/23 04:40 Abnormal Lab Findings: Abnormal Labs 03/16/23 03/16/23 03/16/23 04:40 04:40 04:40 RBC 3.78 L Hgb 11.9 L Hct 34.0 L APTT 19.3 L Potassium 3.0 L Creatinine 1.49 H Glucose 142 H Assessment and Plan Assessment: This is a 82-year-old gentleman who presented because of leg weakness and falls. He is complaining of lower back pain recently in the last 1 week. Low back pain with reported leg weakness and falls: Rule out any metastases to the lumbar spinal region especially with a history of colon cancer. On examination the patient had no focal weakness in the lowers but was unsteady walk-in. Hypertensive emergency (229/119) History of hypertension and also presented with uncontrolled hypertension the past Syncopal episode had a prior EEG in 2021 which is normal History of coronary artery disease status post CABG History of prostate cancer per EMR the patient denies that. Plan: I ordered MRI lumbar spine w/o and w/o to rule out mets. Ordered CK level, hemoglobin A1c. PT is consulted I also consulted OT Patient states that he has a cane or walker at home but does not use them. I advised him of using them. We'll defer the rest of the medical management to primary team The plan was discussed with the patient in the ED team Thank you for the consultation Dr. Ya will start neurology service tomorrow A.M. Time with Patient: Greater than 30
[2023-03-16] MEDS ORDERED: hydrALAZINE HCL 20 MG/ML 1 ML VIAL IVP PRN (15:38)
[2023-03-16] MEDS: amLODIPine 10 MG TAB PO SCH (16:39)
[2023-03-16] MEDS: QUEtiapine 100 MG TAB PO SCH (20:29)
[2023-03-16] MEDS: DULoxetine HCL 60 MG CAPSULE.DR PO SCH (20:29)
[2023-03-17] MEDS: PANTOPRAZOLE 40 MG TABLET PO SCH (06:35)
[2023-03-17] MEDS ORDERED: amLODIPine 5 MG TAB PO SCH (09:00)
[2023-03-17] MEDS: FAMOTIDINE 20 MG TAB PO SCH (09:39)
[2023-03-17] MEDS: ATORVASTATIN 10 MG TAB PO SCH (09:39)
[2023-03-17] MEDS: QUEtiapine 100 MG TAB PO SCH ×2 (09:39→19:57)
[2023-03-17] MEDS: DULoxetine HCL 60 MG CAPSULE.DR PO SCH ×2 (09:39→19:57)
[2023-03-17] MEDS: MONTELUKAST 10 MG TAB PO SCH (09:39)
[2023-03-17] MEDS: TAMSULOSIN 0.4 MG CAP.ER.24H PO SCH (09:39)
[2023-03-17] MEDS: amLODIPine 10 MG TAB PO SCH (09:39)
[2023-03-17] MEDS: ASPIRIN 81 MG PO SCH (09:40)
[2023-03-17] MEDS: LORATADINE 10 MG TAB PO SCH (09:40)
--- NOTE | 2023-03-17 10:36 | P.CRDCN ---
History of Present Illness History of present illness: HISTORY OF PRESENT ILLNESS: This is a 82-year-old male with a past medical history significant for peripheral vascular disease, hyperlipidemia, coronary artery disease with previous three-vessel CABG, and mild cardiomyopathy. Patient follows in the office with Dr. Gould but has not been seen in the office since April 2021. We have been asked to see the patient in consultation for hypertension. Patient examined at the bedside. Patient states he presented to the hospital with shortness of breath and bilateral lower extremity numbness and weakness. He denies having any chest pain or pressure. This morning he denies any shortness of breath. He states the weakness in his legs feels better today. He does report that the weakness seems to be worse at night. The patient was found to be hypertensive. He was prescribed Florinef and Midodrine on an outpatient basis. The patient states his blood pressures have been labile recently. He was started on Norvasc per internal medicine. The patient's vital signs are currently stable. * EKG reveals sinus mechanism with no signs of acute ischemia * Chest xray negative for acute process * Laboratory data: WBC 7.1. Hemoglobin 11.9. Platelet count 144. Sodium 141. Potassium 3.0. B UN 19. Creatinine 1.49. Troponin negative 1. TSH 1.270. * Current home cardiac medications include simvastatin 20 mg daily, Florinef 0.1 mg twice a day, and Midodrine 5mg TID * Most recent echocardiogram obtained in November 2020 revealed ejection fraction 60-65% with mild TR * Patient underwent Lexiscan stress test in July 2022 which was negative for ischemia REVIEW OF SYSTEMS: At the time of my exam: CONSTITUTIONAL: Denies fever or chills. HEENT: Denies blurred vision, vision changes, or eye pain. Denies hemoptysis CARDIOVASCULAR: Denies chest pain. Denies orthopnea. Denies PND. Denies palpitations RESPIRATORY: Denies shortness of breath. GASTROINTESTINAL: Denies abdominal pain. Denies nausea or vomiting. HEMATOLOGIC: Denies bleeding disorders. GENITOURINARY: Denies any blood in urine. SKIN: Denies pruitis. Denies rash. PHYSICAL EXAM: VITAL SIGNS: Reviewed. GENERAL: Well-developed in no acute distress. HEENT: Head is normocephalic. Pupils are equal, round. Sclerae anicteric. Mucous membranes of the mouth are moist. Neck supple. No JVD or thyromegaly LUNGS: Respirations even and unlabored. Lungs essentially clear to auscultation bilaterally. HEART: Regular rate and rhythm. S1 and S2 heard. ABDOMEN: Soft. Nondistended. Nontender. EXTREMITIES: Normal range of motion. No clubbing or cyanosis. Peripheral pulses intact. No lower extremity edema NEUROLOGIC: Awake and alert. Oriented x 3. ASSESSMENT: Bilateral lower extremity numbness and weakness Hypertension Labile blood pressures at home, per patient History of hypotension, on Florinef and Midodrine on an outpatient basis Coronary artery disease with previous three-vessel CABG History of mild ischemic cardiomyopathy, 45% in 2013, with recovery in EF Peripheral vascular disease Hyperlipidemia PLAN: Obtain 2-D echo to assess cardiac structure and function Obtain carotid Doppler Agree with amlodipine which was started by primary medicine Hold Florinef and Midodrine Continue to monitor blood pressure Further recommendations pending patient course Nurse practitioner note has been reviewed by physician. Signing provider agrees with the documented findings, assessment, and plan of care. 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 R ankle fracture 2020, "poor circulation in my legs", current dysphagia to liquids & solids, has increased recently History of Any Multi-Drug Resistant Organisms: None Reported Past Surgical History: Bowel Resection, Cholecystectomy, Coronary Bypass/CABG, Heart Catheterization, Hernia Repair, Prostate Surgery Additional Past Surgical History / Comment(s): Small bowel resection, exp loratory laparotomy/lysis of adhesions, EGDs/dilations/FB removal, recent EGD 03/19/21 showed paraesophageal hernia per report, colonoscopy, prostate seed implants, 2 penile implants, vasectomy, 2006 CABG 3 vessel, R ankle ORIF, lasik eye surgery for vision correction. Past Anesthesia/Blood Transfusion Reactions: No Reported Reaction Past Psychological History: No Psychological Hx Reported Smoking Status: Former smoker, Light tobacco smoker Past Alcohol Use History: None Reported Past Drug Use History: None Reported - Past Family History Father Family Medical History: Myocardial Infarction ([place]) Additional Family Medical History / Comment(s): Pt did not know his father but they were told he of a [place] at the age of 42 yrs. Mother Family Medical History: Vascular Disorder Additional Family Medical History / Comment(s): Mother at age 68yrs, pt was told possible d/t ruptured aneurysm in her neck. Medications and Allergies Home Medications Medication Instructions Recorded Confirmed Type Aspirin EC [Ecotrin Low Dose] 81 mg PO DAILY 07/29/16 03/16/23 History Simvastatin [Zocor] 20 mg PO DAILY 04/21/19 03/16/23 History Octreotide Acetate,Mi-Spheres 10 mg IM QMONTHLY 03/26/21 03/16/23 History [SandoSTATIN LAR Depot] Octreotide Acetate,Mi-Spheres 30 mg IM QMONTHLY 03/26/21 03/16/23 History [SandoSTATIN LAR Depot] Fludrocortisone [Florinef] 0.1 mg PO BID 11/09/21 03/16/23 History QUEtiapine XR [SEROquel XR] 200 mg PO HS #1 tab 11/16/21 03/16/23 Rx Diphenoxylate HCl/Atropine 2 tab PO QID PRN 04/30/22 03/16/23 History [Lomotil 2.5-0.025 mg Tablet] Omeprazole [PriLOSEC] 40 mg PO DAILY 04/30/22 03/16/23 History DULoxetine HCL [Cymbalta] 60 mg PO BID 09/11/22 03/16/23 History Famotidine [Pepcid] 20 mg PO DAILY 09/11/22 03/16/23 History Loratadine [Claritin] 10 mg PO DAILY 09/11/22 03/16/23 History Midodrine [ProAmatine] 5 mg PO TID 09/11/22 03/16/23 History Montelukast [Singulair] 10 mg PO DAILY 09/11/22 03/16/23 History Tamsulosin HCl [Flomax] 0.4 mg PO DAILY 09/11/22 03/16/23 History Allergies Allergy/AdvReac Type Severity Reaction Status Date / Time No Known Allergies Allergy Verified 03/16/23 13:18 Physical Exam Vitals: Vital Signs Temp Pulse Pulse Resp BP BP BP 03/17/23 02:00 88 03/17/23 00:04 98.9 F 86 16 133/75 03/16/23 20:00 16 03/16/23 19:30 98.6 F 88 16 143/67 03/16/23 16:38 153/85 03/16/23 15:36 98.8 F 73 16 227/110 03/16/23 15:34 193/109 170/144 03/16/23 14:45 98.0 F 73 17 188/102 03/16/23 13:18 66 19 176/92 03/16/23 12:30 69 18 170/113 03/16/23 12:23 71 18 170/113 03/16/23 11:10 67 16 200/106 Pulse Ox 03/17/23 02:00 03/17/23 00:04 98 03/16/23 20:00 03/16/23 19:30 99 03/16/23 16:38 03/16/23 15:36 98 03/16/23 15:34 03/16/23 14:45 99 03/16/23 13:18 96 03/16/23 12:30 97 03/16/23 12:23 99 03/16/23 11:10 98 Intake and Output 03/16/23 03/17/23 03/17/23 22:59 06:59 14:59 Output Total 375 Balance -375 Output: Urine 375 Other: Voiding Method Urinal Urinal # Voids 0 2 Weight 72.575 kg Results 03/16/23 04:40 03/16/23 04:40 Current Medications Generic Name Dose Route Start Last Admin Trade Name Freq PRN Reason Stop Dose Admin Amlodipine Besylate 10 mg 03/16/23 16:00 03/16/23 16:39 Amlodipine 10 Mg Tab PO 10 mg DAILY MYLA Administration Aspirin 81 mg 03/17/23 09:00 Aspirin 81 Mg PO DAILY MYLA Atorvastatin Calcium 10 mg 03/17/23 09:00 Atorvastatin 10 Mg Tab PO DAILY MYLA Duloxetine HCl 60 mg 03/16/23 21:00 03/16/23 20:29 Duloxetine Hcl 60 Mg Capsule.Dr PO 60 mg BID MYLA Administration Famotidine 20 mg 03/17/23 09:00 Famotidine 20 Mg Tab PO DAILY MYLA Loratadine 10 mg 03/17/23 09:00 Loratadine 10 Mg Tab PO DAILY MYLA Montelukast Sodium 10 mg 03/17/23 09:00 Montelukast 10 Mg Tab PO DAILY MYLA Naloxone HCl 0.2 mg 03/16/23 12:04 Naloxone 0.4 Mg/Ml 1 Ml Vial IV Q2M PRN Opioid Reversal Pantoprazole Sodium 40 mg 03/17/23 07:30 03/17/23 06:35 Pantoprazole 40 Mg Tablet PO 40 mg [id number] MYLA Administration Quetiapine Fumarate 100 mg 03/16/23 21:00 03/16/23 20:29 Quetiapine 100 Mg Tab PO 100 mg BID MYLA Administration Tamsulosin HCl 0.4 mg 03/17/23 09:00 Tamsulosin 0.4 Mg Cap.Er.24h PO DAILY MYLA Intake and Output 03/16/23 03/17/23 03/17/23 22:59 06:59 14:59 Output Total 375 Balance -375 Output: Urine 375 Other: Voiding Method Urinal Urinal # Voids 0 2 Weight 72.575 kg 03/16/23 04:40 03/16/23 04:40
--- NOTE | 2023-03-17 13:31 | US ---
EXAMINATION TYPE: US carotid duplex BILAT DATE OF EXAM: 03/17/2023 COMPARISON: Carotid ultrasound 11/10/2021, 04/05/2020 CLINICAL INDICATION: Male, 82 years old with history of leg weakness, htn; no h/o stroke, legs are we ak TECHNIQUE: Carotid duplex ultrasound examination. Indirect Doppler criteria was utilized. FINDINGS: EXAM MEASUREMENTS: RIGHT: Peak Systolic Velocity (PSV) cm/sec ----- Right CCA: 100.0 ----- Right ICA: 81.9 ----- Right ECA: 126 ICA/CCA ratio: 0.8 RIGHT: End Diastole cm/sec ----- Right CCA: 19.5 ----- Right ICA: 20.1 ----- Right ECA: 10.3 LEFT: Peak Systolic Velocity (PSV) cm/sec ----- Left CCA: 111 ----- Left ICA: 108 ----- Left ECA: 109 ICA/CCA ratio: 0.9 LEFT: End Diastole cm/sec ----- Left CCA: 18.9 ----- Left ICA: 22.1 ----- Left ECA: 10.4 VERTEBRALS (direction of flow): Right Vertebral: Antegrade Left Vertebral: Antegrade Rhythm: PURCHASING AND CLAIMS SUPERVISOR NOTES: Heterogeneous plaque bilaterally with no significant stenosis seen Mild bilateral atherosclerotic plaque most pronounced in the bilateral carotid bulbs. IMPRESSION: No ultrasound evidence for hemodynamically significant stenosis of the bilateral internal carotid art eries. Criteria for Assigning % of Stenosis / Diameter reduction (Estimation based on the indirect measurements of the internal carotid artery velocities (ICA PSV). 1. Normal (no stenosis)=ICA PSV < 125 cm/s: ratio < 2.0: ICA EDV<40 cm/s. 2. Less than 50% stenosis=ICA PSV < 125 cm/s: ratio < 2.0: ICA EDV<40 cm/s. 3. 50 to 69% stenosis=ICA PSV of 125 to 230 cm/s: ration 2.0 ? 4.0: ICA EDV 40-100 cm/s. 4. Greater than 70% stenosis to near occlusion= ICA PSV > 230 cm/s: ratio > 4.0: ICA EDV > 100 cm/s. 5. Near occlusion= ICA PSV velocities may be low or undetectable: variable ratio and ICA EDV. 6. Total occlusion=unable to detect flow.
[2023-03-17] MEDS ORDERED: Magnesium Replacement Protocol 1 EACH MISC MISCELLANE PRN (15:29)
[2023-03-17] MEDS ORDERED: Potassium Replacement Protocol 1 EACH MISC MISCELLANE PRN (15:29)
--- NOTE | 2023-03-17 15:44 | MR ---
EXAMINATION TYPE: MR lspine/sacrum wo con DATE OF EXAM: 03/17/2023 COMPARISON: Prior CT abdomen and pelvis February 25, 2023 HISTORY: Lower back pain, unsteady gait, hx colon cancer. TECHNIQUE: Multiplanar, multisequence imaging of the lumbar spine and sacrum are performed without IV contrast. FINDINGS: Sagittal images of the lumbar spine show vertebral body heights and alignment to appear sta ble and satisfactory. Multilevel disc desiccation but the disc space heights are preserved. The conu s medullaris is normal in position and signal ending at L1 level. The bone marrow signal intensity i s within normal limits. Axial images show mild to moderate facet arthropathy beginning at L2-L3 level extending through L5-S1 levels. No significant focal disc herniation or spinal canal effacement is identified. Bilateral amisha ral foramina are grossly patent. Sacrum appears intact. Sacroiliac joints are symmetric and felt within normal limits. No adjacent lelia ma. Bone marrow signal intensity is maintained. No bony destruction is evident. Small sized prostate redemonstrated. No free fluid in the pelvis. A few distal sigmoid colonic diverticula are redemonstra kyle. IMPRESSION: No significant findings seen to account for patient's symptoms.
[2023-03-17 16:53] LABS: Magnesium 1.7 mg/dL (1.6-2.3); Potassium 3.2 mmol/L (3.5-5.1)
[2023-03-17] MEDS: POTASSIUM CHLORIDE ER 20 MEQ TAB.ER PO SCH ×2 (19:57→21:06)
--- NOTE | 2023-03-17 22:24 | P.HPIM ---
History of Present Illness H&P Date: 03/17/23 Chief Complaint: shortness of breath Reinier Bajwa is an 82 yo M with PMH of carcinoid syndrome, CAD, hx CABG, cardiomyopathy who presented to the ED with increasing shortness of breath and weakness over the past few days. He states he has continued on his home medications and has been drinking more beer, states he has been eating a lot of salt recently. He denies any chest pain or headache, just feels winded both at rest and with ambulation. On presentation pt hypertensive to 229/120, EKG NSR, WBC 7.1, Hgb 11.9, Cr 1.49, trop negative. Review of Systems All systems: negative Constitutional: Reports malaise, Reports weakness, Denies chills, Denies fever Eyes: denies blurred vision, denies pain Ears, nose, mouth and throat: Denies headache, Denies sore throat Cardiovascular: Reports dyspnea on exertion, Denies chest pain, Denies shortness of breath Respiratory: Reports dyspnea, Denies cough Gastrointestinal: Denies abdominal pain, Denies diarrhea, Denies nausea, Denies vomiting Musculoskeletal: Denies myalgias Integumentary: Denies pruritus, Denies rash Neurological: Denies numbness, Denies weakness Psychiatric: Denies anxiety, Denies depression Endocrine: Denies fatigue, Denies weight change Past Medical History Past Medical History: Coronary Artery Disease (CAD), Cancer, GERD/Reflux, Hyperlipidemia, Hypertension, Osteoarthritis (OA), Prostate Disorder, Syncope Additional Past Medical History / Comment(s): Syncope with FALLS, prostate cancer with radiated seed placed, colon cancer with small bowel resection/chronic diarrhea which has improved with medication, partial small bowel obstructions with conservative treatment/laparotomy with lysis of adhesions, ileus, 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 Past Anesthesia/Blood Transfusion Reactions: No Reported Reaction Past Psychological History: No Psychological Hx Reported Smoking Status: Former smoker, Light tobacco smoker Past Alcohol Use History: None Reported Past Drug Use History: None Reported - Past Family History Father Family Medical History: Myocardial Infarction (PR) Additional Family Medical History / Comment(s): Pt did not know his father but they were told he of a PR at the age of 42 yrs. Mother Family Medical History: Vascular Disorder Additional Family Medical History / Comment(s): Mother at age 68yrs, pt was told possible d/t ruptured aneurysm in her neck. Medications and Allergies Home Medications Medication Instructions Recorded Confirmed Type Aspirin EC [Ecotrin Low Dose] 81 mg PO DAILY 07/29/16 03/16/23 History Simvastatin [Zocor] 20 mg PO DAILY 04/21/19 03/16/23 History Octreotide Acetate,Mi-Spheres 10 mg IM QMONTHLY 03/26/21 03/16/23 History [SandoSTATIN LAR Depot] Octreotide Acetate,Mi-Spheres 30 mg IM QMONTHLY 03/26/21 03/16/23 History [SandoSTATIN LAR [place]] Fludrocortisone [Florinef] 0.1 mg PO BID 11/09/21 03/16/23 History QUEtiapine XR [SEROquel XR] 200 mg PO HS #1 tab 11/16/21 03/16/23 Rx Diphenoxylate HCl/Atropine 2 tab PO QID PRN 04/30/22 03/16/23 History [Lomotil 2.5-0.025 mg Tablet] Omeprazole [PriLOSEC] 40 mg PO DAILY 04/30/22 03/16/23 History DULoxetine HCL [Cymbalta] 60 mg PO BID 09/11/22 03/16/23 History Famotidine [Pepcid] 20 mg PO DAILY 09/11/22 03/16/23 History Loratadine [Claritin] 10 mg PO DAILY 09/11/22 03/16/23 History Midodrine [ProAmatine] 5 mg PO TID 09/11/22 03/16/23 History Montelukast [Singulair] 10 mg PO DAILY 09/11/22 03/16/23 History Tamsulosin HCl [Flomax] 0.4 mg PO DAILY 09/11/22 03/16/23 History Allergies Allergy/AdvReac Type Severity Reaction Status Date / Time No Known Allergies Allergy Verified 03/16/23 13:18 Physical Exam Vitals: Vital Signs Temp Pulse Resp BP Pulse Ox 03/17/23 14:03 98.6 F 92 16 119/60 98 03/17/23 07:00 98.4 F 80 16 129/73 96 03/17/23 02:00 88 03/17/23 00:04 98.9 F 86 16 133/75 98 Intake and Output 03/17/23 03/17/23 03/17/23 06:59 14:59 22:59 Intake Total 118 Output Total 300 Balance -182 Intake: Oral 118 Output: Urine 300 Other: Voiding Method Urinal Urinal # Voids 2 Gen: well developed, elderly male in NAD HEENT: NC/AT, mmm Neck: supple, no JVD or thyromegaly CV: RRR, no murmur Lungs: normal effort, clear throughout Abd: soft, nontender, non distended Neuro: AAOx3, no focal deficit Skin: warm and dry Results CBC & Chem 7: 03/16/23 04:40 03/17/23 16:18 Labs: Abnormal Lab Results - Last 24 Hours (Table) 03/16/23 03/17/23 Range/Units 04:40 16:18 Potassium 3.2 L (3.5-5.1) mmol/L Hemoglobin A1c 6.3 H (<=6.0) % Thrombosis Risk Factor Assmnt - Choose All That Apply Any of the Below Risk Factors Present?: Yes Other Risk Factors: Yes Each Risk Factor Represents 3 Points: Age 75 years or older Thrombosis Risk Factor Assessment Total Risk Factor Score: 3 Thrombosis Risk Factor Assessment Level: Moderate Risk Assessment and Plan Plan: 1. Hypertensive emergency. Admit, consult to cardiology. Hold midodrine and fludrocortisone. Start norvasc. Continue to closely monitor BP 2. CAD. Hx CABG. Continue with lipitor, ASA 3. Major depression. Continue with seroquel 4. Carcinoid syndrome. Hold sandostatin and lomotil for now
--- NOTE | 2023-03-17 23:06 | P.PN ---
Subjective Progress Note Date: 03/17/23 Patient was initially seen by Dr. Rodrigue Stuart. Please refer to his note for details. Patient is a 82-year-old male with leg weakness and unsteady gait with a past 1 week. Patient has history of colon cancer. I spoke to patient's nurse, who mentioned the patient had fairly acute onset of gait difficulty. He has been seen by physical therapy and is about 1-2 people assist. He is very unsteady on his feet. He needs significant help with ambulation. This is new onset. Patient tells me that he has history of colon cancer 8-9 years ago in which about 1-1/2 feet of colon was removed. He has completed chemotherapy although he is receiving some injection monthly. Review of his medication list, probably Sandostatin. Patient says that he sat in the chair for an hour and he feels much better. Blood pressure is better controlled, most recent blood pressure 149/87. Objective - Vital Signs Vital signs: Vital Signs Temp 98.6 F 03/17/23 14:03 Pulse 92 03/17/23 14:03 Resp 16 03/17/23 14:03 BP 119/60 03/17/23 14:03 Pulse Ox 98 03/17/23 14:03 FiO2 Intake & Output 03/16/23 03/17/23 03/17/23 18:59 06:59 18:59 Intake Total 118 Output Total 125 250 300 Balance -125 -250 -182 Weight 72.575 kg Intake: Oral 118 Output: Urine 125 250 300 Other: Voiding Method Urinal Urinal # Voids 0 2 - Exam Patient's mental status is normal. He is alert and awake. Speech and leg which functions are normal. On muscle strength testing, patient strength is normal in the upper limbs. In the lower limbs, hip flexion is 4+ bilaterally, ankle dorsiflexion 5, hip adduction 5, hip abduction 5 bilaterally. Deep tendon reflexes are symmetric, 2 at the biceps, 2 brachioradialis, 1 at the knees, absent ankles and plantars are flat bilaterally. Sensory to touch is equal with no neglect. No ataxia for [id number] testing. - Labs CBC & Chem 7: 03/16/23 04:40 03/17/23 16:18 Labs: Abnormal Lab Results - Last 24 Hours (Table) 03/16/23 Range/Units 04:40 Hemoglobin A1c 6.3 H (<=6.0) % Assessment and Plan Assessment: This is a 82-year-old gentleman who presented because of leg weakness and falls. He is complaining of lower back pain recently in the last 1 week. Low back pain with reported leg weakness and falls: Rule out any metastases to the lumbar spinal region especially with a history of colon cancer. On examination the patient had no focal weakness in the lowers but was unsteady walk-in. Hypertensive emergency (229/119) History of hypertension and also presented with uncontrolled hypertension the past Syncopal episode had a prior EEG in 2021 which is normal History of coronary artery disease status post CABG History of prostate cancer per EMR the patient denies that. Plan: MRI lumbar spine w/o revealed moderate facet arthropathy beginning at L2-L3 level extending below 2 L5-S1 level. No significant spinal stenosis or significant neural foraminal narrowing. No abnormal marrow signal. I personally reviewed MRI of the lumbar spine, agree with the findings. No abnormal signal. Carotid Doppler revealed no significant stenosis. Antegrade flow in both vertebral arteries. Patient has fairly acute onset of gait difficulty. He does have borderline diabetes, elevated blood pressure. We will check MRI of the brain to rule out acute stroke. CK level normal 169, hemoglobin A1c borderline 6.3. PT is consulted I also consulted OT Patient states that he has a cane or walker at home but does not use them. I advised him of using them. Continue aspirin 81 mg and Lipitor 10 mg daily for now. We'll defer the rest of the medical management to primary team
[2023-03-18 03:02] VITALS: RESP 16
[2023-03-18] MEDS: PANTOPRAZOLE 40 MG TABLET PO SCH (06:31)
[2023-03-18 06:40] LABS: Magnesium 1.6 mg/dL (1.6-2.3)
[2023-03-18 08:14] VITALS: TEMP 98.5
[2023-03-18] MEDS: DULoxetine HCL 60 MG CAPSULE.DR PO SCH (08:22)
[2023-03-18] MEDS: ATORVASTATIN 10 MG TAB PO SCH (08:22)
[2023-03-18] MEDS: QUEtiapine 100 MG TAB PO SCH (08:22)
[2023-03-18] MEDS: TAMSULOSIN 0.4 MG CAP.ER.24H PO SCH (08:22)
[2023-03-18] MEDS: LORATADINE 10 MG TAB PO SCH (08:22)
[2023-03-18] MEDS: FAMOTIDINE 20 MG TAB PO SCH (08:23)
[2023-03-18] MEDS: amLODIPine 10 MG TAB PO SCH (08:23)
[2023-03-18] MEDS: ASPIRIN 81 MG PO SCH (08:23)
[2023-03-18] MEDS: MONTELUKAST 10 MG TAB PO SCH (08:23)
--- NOTE | 2023-03-18 11:37 | P.PN ---
Subjective HISTORY OF PRESENT ILLNESS: This is a 82-year-old male with a past medical history significant for peripheral vascular disease, hyperlipidemia, coronary artery disease with previous three-vessel CABG, and mild cardiomyopathy. Patient follows in the office with Dr. Gould but has not been seen in the office since April 2021. We have been asked to see the patient in consultation for hypertension. Patient examined at the bedside. Patient states he presented to the hospital with shortness of breath and bilateral lower extremity numbness and weakness. He denies having any chest pain or pressure. This morning he denies any shortness of breath. He states the weakness in his legs feels better today. He does report that the weakness seems to be worse at night. The patient was found to be hypertensive. He was prescribed Florinef and Midodrine on an outpatient basis. The patient states his blood pressures have been labile recently. He was started on Norvasc per internal medicine. The patient's vital signs are cu rrently stable. * EKG reveals sinus mechanism with no signs of acute ischemia * Chest xray negative for acute process * Laboratory data: WBC 7.1. Hemoglobin 11.9. Platelet count 144. Sodium 141. Potassium 3.0. B UN 19. Creatinine 1.49. Troponin negative 1. TSH 1.270. * Current home cardiac medications include simvastatin 20 mg daily, Florinef 0.1 mg twice a day, and Midodrine 5mg TID * Most recent echocardiogram obtained in November 2020 revealed ejection fraction 60-65% with mild TR * Patient underwent Lexiscan stress test in July 2022 which was negative for ischemia 03/18/2023 Patient examined this morning at the bedside. Patient denies chest pain or pressure. He denies shortness of breath. Blood pressure has improved today. Most recent reading 137/67. Carotid Doppler with no evidence of hemodynamically significant stenosis of bilateral internal carotid arteries. PHYSICAL EXAM: VITAL SIGNS: Reviewed. GENERAL: Well-developed in no acute distress. HEENT: Head is normocephalic. Pupils are equal, round. Sclerae anicteric. Mucous membranes of the mouth are moist. Neck supple. No JVD or thyromegaly LUNGS: Respirations even and unlabored. Lungs essentially clear to auscultation bilaterally. HEART: Regular rate and rhythm. S1 and S2 heard. ABDOMEN: Soft. Nondistended. Nontender. EXTREMITIES: Normal range of motion. No clubbing or cyanosis. Peripheral pulses intact. No lower extremity edema NEUROLOGIC: Awake and alert. Oriented x 3. ASSESSMENT: Bilateral lower extremity numbness and weakness Hypertension Labile blood pressures at home, per patient History of hypotension, on Florinef and Midodrine on an outpatient basis Coronary artery disease with previous three-vessel CABG History of mild ischemic cardiomyopathy, 45% in 2013, with recovery in EF Peripheral vascular disease Hyperlipidemia PLAN: 2-D echo ordered. Await results Continue current cardiac medications Patient instructed to follow a low-sodium diet Patient is stable for discharge home today from a cardiac standpoint Nurse practitioner note has been reviewed by physician. Signing provider agrees with the documented findings, assessment, and plan of care. Objective - Vital Signs Vital signs: Vital Signs Temp 98.5 F 03/18/23 08:00 Pulse 83 03/18/23 08:00 Resp 16 03/18/23 08:00 BP 134/67 03/18/23 08:00 Pulse Ox 97 03/18/23 08:00 FiO2 Intake & Output 03/17/23 03/18/23 03/18/23 18:59 06:59 18:59 Intake Total 118 Output Total 300 250 200 Balance -182 -250 -200 Intake: Oral 118 Output: Urine 300 250 200 Other: Voiding Method Urinal Urinal Urinal # Voids 1 - Labs CBC & Chem 7: 03/16/23 04:40 03/18/23 06:13 Labs: Abnormal Lab Results - Last 24 Hours (Table) 03/17/23 Range/Units 16:18 Potassium 3.2 L (3.5-5.1) mmol/L
--- NOTE | 2023-03-18 12:12 | P.DS ---
Providers Date of admission: 03/16/23 12:04 Expected date of discharge: 03/18/23 Attending physician: Kenenth Luciano MD Consults: 03/16/23 12:04 Consult Physician Routine Consulting Provider: Rodrigue Stuart Consult Reason/Comments: leg weakness Do you want consulting provider notified?: Yes Consult Physician Routine Consulting Provider: Beto Torre Consult Reason/Comments: htn urgency Do you want consulting provider notified?: Yes Primary care physician: Kenneth Luciano MD Hospital Course: Final Diagnoses: Hypertensive emergency, continue holding midodrine and fludrocortisone.Norvasc initiated. Continue to closely monitor BP CAD, history of CABG Major depression Carcinoid syndrome, holding Sandostatin and Lomotil for now. Hospital course:Reinier Bajwa is an 82 yo M with PMH of carcinoid syndrome, CAD, hx CABG, cardiomyopathy who presented to the ED with increasing shortness of breath and weakness over the past few days. He states he has continued on his home medications and has been drinking more beer, states he has been eating a lot of salt recently. He denies any chest pain or headache, just feels winded both at rest and with ambulation. On presentation pt hypertensive to 229/120, EKG NSR, WBC 7.1, Hgb 11.9, Cr 1.49, trop negative. Evaluated by cardiology and neurology. Neurology workup in progress. 2-D echo completed, results pending. Carotid Doppler reported no hemodynamic significant stenosis. MRI of lumbar spine reported no significant findings to account for patient's symptoms. Mild to moderate facet arthropathy beginning at L2-L3 extending to L5-S1 levels, no focal disc herniation or spinal canal effacement. MRI of the brain pending . Evaluated by PT recommending home/home care. Home care declined.Low sodium diet recommended at discharge, including alcohol abstinence. Midodrine and fludrocortisone remains on hold, Norvasc initiated, systolic pressure currently in the 130s. Significant clinical improvement. Denies chest pain, palpitations or shortness of breath. Cleared by cardiology for discharge. Patient will be discharged home today in a stable condition with guarded prognosis, pending brain MRI, final DC recommendations and clearance per neurology. The impression and plan of care has been dictated as directed. : I performed a history and examination of this patient, discussed the same with the dictator. I agree with the dictator's note ,documented as a scribe. Any additional findings or plans will be noted. Patient Condition at Discharge: Stable Plan - Discharge Summary Discharge Rx Participant: No New Discharge Prescriptions: New amLODIPine [Norvasc] 5 mg PO DAILY #14 tab Continue Aspirin EC [Ecotrin Low Dose] 81 mg PO DAILY Simvastatin [Zocor] 20 mg PO DAILY Octreotide Acetate,Mi-Spheres [SandoSTATIN [place]AR [place]] 30 mg IM QMONTHLY Octreotide Acetate,Mi-Spheres [SandoSTATIN [place]] 10 mg IM QMONTHLY QUEtiapine XR [SEROquel XR] 200 mg PO HS #1 tab Diphenoxylate HCl/Atropine [Lomotil 2.5-0.025 mg Tablet] 2 tab PO QID PRN PRN Reason: Diarrhea Loratadine [Claritin] 10 mg PO DAILY Famotidine [Pepcid] 20 mg PO DAILY Omeprazole [PriLOSEC] 40 mg PO DAILY Montelukast [Singulair] 10 mg PO DAILY DULoxetine HCL [Cymbalta] 60 mg PO BID Tamsulosin HCl [Flomax] 0.4 mg PO DAILY Discontinued Fludrocortisone [Florinef] 0.1 mg PO BID Midodrine [ProAmatine] 5 mg PO TID Discharge Medication List Aspirin EC [Ecotrin Low Dose] 81 mg PO DAILY 07/29/16 [History] Simvastatin [Zocor] 20 mg PO DAILY 04/21/19 [History] Octreotide Acetate,Mi-Spheres [SandoSTATIN [place]] 10 mg IM QMONTHLY 03/26/21 [History] Octreotide Acetate,Mi-Spheres [SandoSTATIN [place]] 30 mg IM QMONTHLY 03/26/21 [History] QUEtiapine XR [SEROquel XR] 200 mg PO HS #1 tab 11/16/21 [Rx] Diphenoxylate HCl/Atropine [Lomotil 2.5-0.025 mg Tablet] 2 tab PO QID PRN 04/30/22 [History] Omeprazole [PriLOSEC] 40 mg PO DAILY 04/30/22 [History] DULoxetine HCL [Cymbalta] 60 mg PO BID 09/11/22 [History] Famotidine [Pepcid] 20 mg PO DAILY 09/11/22 [History] Loratadine [Claritin] 10 mg PO DAILY 09/11/22 [History] Montelukast [Singulair] 10 mg PO DAILY 09/11/22 [History] Tamsulosin HCl [Flomax] 0.4 mg PO DAILY 09/11/22 [History] amLODIPine [Norvasc] 5 mg PO DAILY #14 tab 03/18/23 [Rx] Follow up Appointment(s)/Referral(s): Kenneth Luciano MD [Primary Care Provider] - 03/23/23 3:30 pm (Appointment in the [facility]) [facility], [NON-STAFF] - 1 Week Activity/Diet/Wound Care/Special Instructions: At this time Florinef and midodrine will remain on hold and to be further addressed in office with PCP.Blood pressure every morning prior to starting today, maintain log and take to follow-up visit with PCP for further rec ommendations. Low Sodium Diet.
--- NOTE | 2023-03-18 12:35 | CA ---
Transthoracic Echo Report Name: Reinier Bajwa Age: 82 Gender: M : 1940 Exam Date: 03/17/2023 09:06 Exam Location: [facility] Ht (in): 67 Wt (lb): 160 Ordering Physician: Génesis Barker Attending/Referring Phys: [id number], [employer] Supervisor Keily Vaughan RDCS Procedure CPT: Indications: HTN, LV function Cardiac Hx: Technical Quality: Fair Contrast 1: Total Dose (mL): Contrast 2: Total Dose (mL): MEASUREMENTS (Male / Female) Normal Values 2D ECHO LV Diastolic Diameter PLAX 4.7 cm 4.2 - 5.9 / 3.9 - 5.3 cm LV Systolic Diameter PLAX 2.6 cm IVS Diastolic Thickness 1.3 cm 0.6 - 1.0 / 0.6 - 0.9 cm LVPW Diastolic Thickness 1.6 cm 0.6 - 1.0 / 0.6 - 0.9 cm LV Relative Wall Thickness 0.6 RV Internal Dim ED PLAX 3.4 cm LA Volume 55.0 cm??? 18 - 58 / 22 - 52 cm??? M-MODE Aortic Root Diameter MM 3.8 cm LA Systolic Diameter MM 4.4 cm LA Ao Ratio MM 1.2 AV Cusp Separation MM 1.8 cm DOPPLER AV Peak Velocity 148.0 cm/s AV Peak Gradient 8.8 mmHg AV Mean Velocity 94.0 cm/s AV Mean Gradient 4.1 mmHg AV Velocity Time Integral 26.1 cm LVOT Peak Velocity 100.1 cm/s LVOT Peak Gradient 4.0 mmHg LVOT Velocity Time Integral 22.0 cm MV Area PHT 3.4 cm??? Mitral E Point Velocity 78.3 cm/s Mitral A Point Velocity 119.0 cm/s Mitral E to A Ratio 0.7 MV Deceleration Time 221.0 ms MV E' Velocity 3.7 cm/s Mitral E to MV E' Ratio 21.4 TR Peak Velocity 216.4 cm/s TR Peak Gradient 18.7 mmHg Right Ventricular Systolic Press 23.1 mmHg FINDINGS Left Ventricle Mildly increased left ventricular wall thickness. Left ventricular cavity size normal. Normal left ventricular systolic function with no obvious regional wall motion abnormalities. Left ventricular ejection fraction is estimated at 55 %. Right Ventricle Mild right ventricular dilatation. Right ventricular systolic pressure within normal limits. Right Atrium Normal right atrial size. Left Atrium Normal left atrial size. Mitral Valve Structurally normal mitral valve. Mild mitral regurgitation. Aortic Valve No aortic valve stenosis or regurgitation. Tricuspid Valve Mild tricuspid regurgitation. Pulmonic Valve Trace pulmonic regurgitation. Pericardium Small pericardial effusion. Prominent epicardial fat. Aorta Normal size aortic root and proximal ascending aorta. CONCLUSIONS Normal LV systolic function Previewed by: Dr. Amanuel Prince MD (Electronically Signed) Final Date: 18 March 2023 12:34
--- NOTE | 2023-03-18 13:35 | MR ---
EXAMINATION TYPE: MR brain wo con DATE OF EXAM: 03/18/2023 1:23 PM COMPARISON: CT brain 03/16/2023. CLINICAL INDICATION:Male, 82 years old with history of Gait imbalance; PHH, Gait imbalance TECHNIQUE: Multi planar, multi sequence imaging was performed through the brain including: T1, T2, In version recovery, Diffusion weighted imaging, and gradient echo imaging. No gadolinium was given. FINDINGS: Generalized cerebral atrophy with proportional dilation of the ventricles. The kaufman-white junctions, ventricular system, and cisterns appear unremarkable. Scattered foci of hi gh T2 signal intensity are seen within the periventricular white matter. Midline structures show no a bnormality. Diffusion-weighted imaging shows no evidence of restricted diffusion. The susceptibility weighted images do not reveal any evidence for micro-hemorrhage. The bone marrow signal is within normal limits. Paranasal sinuses and mastoid air cells: No significant paranasal sinus disease. Trace bilateral sign al in the mastoid air cells. Visualized orbits: Orbital contents are intact. IMPRESSION: 1. No evidence of intracranial mass or acute/subacute infarct. 2. Nonspecific white matter changes, likely secondary to small vessel ischemic disease. 3. Trace bilateral mastoid air cell effusions. 4. Cerebral atrophy.
[2023-03-18 15:29] VITALS: BP 147/77; PULSE 89
--- NOTE | 2023-03-20 13:31 | P.PN ---
Subjective Progress Note Date: 03/18/23 03/18/2023: Patient was seen for a follow-up. Patient is laying comfortably in the bed. Patient mentions that prior to arrival, his symptoms happened overnight. He couldn't walk, both legs were feeling weak. He couldn't stand up, prior to that, he was walking without any assistive device. Patient denied any slurred speech, facial droop, or any visual disturbance. Overall patient states that he is feeling better at this time. 03/17/2023: Patient was initially seen by Dr. Rodrigue Stuart. Please refer to his note for details. Patient is a 82-year-old male with leg weakness and unsteady gait with a past 1 week. Patient has history of colon cancer. I spoke to patient's nurse, who mentioned the patient had fairly acute onset of gait difficulty. He has been seen by physical therapy and is about 1-2 people assist. He is very unsteady on his feet. He needs significant help with ambulation. This is new onset. Patient tells me that he has history of colon cancer 8-9 years ago in which about 1-1/2 feet of colon was removed. He has completed chemotherapy although jose guadalupe alexandre is receiving some injection monthly. Review of his medication list, probably Sandostatin. Patient says that he sat in the chair for an hour and he feels much better. Blood pressure is better controlled, most recent blood pressure 149/87. Objective - Vital Signs Vital signs: Vital Signs Temp 98.5 F 03/18/23 15:00 Pulse 89 03/18/23 15:00 Resp 16 03/18/23 15:00 BP 147/77 03/18/23 15:00 Pulse Ox 99 03/18/23 15:00 FiO2 - Exam Patient's mental status is normal. He is alert and awake. Speech and language functions are normal. On muscle strength testing, patient strength is normal in the upper limbs. There is no pronator drift. In the lower limbs, hip flexion is 4+ bilaterally, ankle dorsiflexion 5, hip adduction 5, hip abduction 5 bilaterally. Deep tendon reflexes are symmetric, 2 at the biceps, 2 brachioradialis, 1 at the knees, absent ankles and plantars are flat bilaterally. Sensory to touch is equal with no neglect. No ataxia for [id number] testing. - Labs CBC & Chem 7: 03/16/23 04:40 03/18/23 06:13 Assessment and Plan Assessment: This is a 82-year-old gentleman who presented because of leg weakness and falls. He is complaining of lower back pain recently in the last 1 week. Low back pain with reported leg weakness and falls: Rule out any metastases to the lumbar spinal region especially with a history of colon cancer. On examination the patient had no focal weakness in the lowers but was unsteady walking. Hypertensive emergency (229/119) History of hypertension and also presented with uncontrolled hypertension the past Syncopal episode had a prior EEG in 2021 which is normal History of coronary artery disease status post CABG History of prostate cancer per EMR the patient denies that. Plan: MRI lumbar spine w/o revealed moderate facet arthropathy beginning at L2-L3 level extending below 2 L5-S1 level. No significant spinal stenosis or significant neural foraminal narrowing. No abnormal marrow signal. I personally reviewed MRI of the lumbar spine, agree with the findings. No abnormal signal. Carotid Doppler revealed no significant stenosis. Antegrade flow in both vertebral arteries. MRI of the brain showed no evidence of intracranial mass or acute/subacute infarct. Nonspecific white matter changes, likely secondary to small vessel ischemic disease. Trace bilateral mastoid air cell effusion. Recommend course of antibiotics for possible mastoiditis. Patient given Augmentin 875 mg 1 tablet twice a day for 10 days. If dizziness persists, may need ENT follow-up as outpatient. CK level normal 169, hemoglobin A1c borderline 6.3. B12 549 on 11/09/2021. Folate was 12.4. PT OT Patient states that he has a cane or walker at home but does not use them. I advised him of using them. Continue aspirin 81 mg and Lipitor 10 mg daily for now. We'll defer the rest of the medical management to primary team Neurologically clear for discharge. Addendum 03/20/2023 I personally reviewed MRI of the brain. Also reviewed CT head from 03/16/2023. There is complete opacification of the right external auditory canal. I spoke to patient on the phone on 03/20/2023 at 1:27 PM. 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 He has seen Dr. Davenport a few times for right hearing loss. He recommended not to follow with him. I will review patient's MRI/computed tomography scan of the head with radiologist in the morning.
== END 2023-03-18 18:51 | disposition home or self-care (01) ==
LOC: EC 02:45 → 6NMEDSUR 12:04
PROVIDERS: ADMIT Family Medicine; ATTEND Family Medicine
DX: I16.1 Hypertensive emergency (principal); R55 Syncope and collapse; I25.10 Atherosclerotic heart disease of native coronary artery without angina pectoris; Z95.1 Presence of aortocoronary bypass graft; R26.81 Unsteadiness on feet; R29.6 Repeated falls; F32.9 Major depressive disorder, single episode, unspecified; E34.0 Carcinoid syndrome; I42.9 Cardiomyopathy, unspecified; I99.9 Unspecified disorder of circulatory system; M47.817 Spondylosis without myelopathy or radiculopathy, lumbosacral region; Z85.038 Personal history of other malignant neoplasm of large intestine; K21.9 Gastro-esophageal reflux disease without esophagitis; M19.90 Unspecified osteoarthritis, unspecified site; Z85.46 Personal history of malignant neoplasm of prostate; Z92.21 Personal history of antineoplastic chemotherapy; Z92.3 Personal history of irradiation; Z90.49 Acquired absence of other specified parts of digestive tract; Z98.890 Other specified postprocedural states; R13.10 Dysphagia, unspecified; Z98.52 Vasectomy status; Z87.891 Personal history of nicotine dependence; Z82.49 Family history of ischemic heart disease and other diseases of the circulatory system; Z79.82 Long term (current) use of aspirin; Z79.899 Other long term (current) drug therapy
CPT/HCPCS: 96376; 96361; 96374; 96375; 99285; 36415; 93005; 93306; 97162; 97166; 80053; 82550; 83605; 83735 ×3; 84100; 84132 ×2; 84443; 84484; 85025; 85610; 85730; 81003; 83036; 71046; 93880; 70450; 75635; 71275; 70551; 72148; 72195; G0378 ×3; J0360; Q9967

== ENCOUNTER → 2023-04-04 | Outpatient (CLI) | payer MEDICARE, BC ==
[2023-04-04 16:29] LABS: HCT 37.3 % (39.6-50.0); HGB 12.2 d/dL (12.0-15.0); MCH 30.9 pg (27.0-32.0); MCHC 32.7 d/dL (32.0-37.0); MCV 94.4 FL (80.0-97.0); Mean Platelet Volume 11.2 FL (9.5-12.2); NRBC Per 100 WBC 0 X 10*3/uL (0.00-0.01); Platelet Count 195 X 10*3/uL (140-440); RBC 3.95 X 10*6/uL (4.40-5.60); WBC 8.07 X 10*3/uL (4.50-10.00)
[2023-04-04 20:05] LABS: ALT 14 U/L (10-49); AST 20 U/L (14-35); Albumin 4.4 d/dL (3.8-4.9); Albumin/Globulin Ratio 1.47 Ratio (1.60-3.17); Alkaline Phosphatase 100 U/L (41-126); BUN/Creat Ratio 12.06 Ratio (12.00-20.00); Blood Urea Nitrogen 19.3 mg/dL (9.0-27.0); Calcium 9.7 mg/dL (8.7-10.3); Carbon Dioxide 18.5 mmol/L (21.6-31.8); Chloride 101 mmol/L (96-109); Chol/HDL Ratio 2.93 Ratio; Glucose 230 mg/dL (70-110); LDL Cholesterol,Calculated 36.4 mg/dL (0.0-131.0); Potassium 4.4 mmol/L (3.5-5.5); Sodium 136 mmol/L (135-145); Total Bilirubin 0.4 mg/dL (0.3-1.2); Total Protein 7.4 d/dL (6.2-8.2)
[2023-04-04 20:07] LABS: PSA Annual Screen <0.14 ng/mL (0.00-4.00)
== END | disposition home or self-care (01) ==
LOC: LABWHC1 11:59
PROVIDERS: ATTEND Family Medicine
DX: Z12.5 Encounter for screening for malignant neoplasm of prostate (principal); I10 Essential (primary) hypertension; F33.1 Major depressive disorder, recurrent, moderate
CPT/HCPCS: 80061; 80053; 84443; 85027; 83036; 36415; G0103

== ENCOUNTER 2023-06-03 22:53 | Inpatient (IN) | payer MEDICARE, BC ==
[2023-06-03] MEDS ORDERED: SODIUM CHLORIDE 0.9% 1,000 ML IV STA (22:58)
--- NOTE | 2023-06-03 23:03 | ED ---
Weakness HPI - General Stated complaint: Weakness Time Seen by Provider: 06/03/23 22:58 Source: RN notes reviewed, old records reviewed Limitations: no limitations - History of Present Illness Initial comments: This is a 2-year-old male presents today for evaluation patient Dese for evaluation of severe weakness and inability status and inability ablate. He started to 3 month period of severe weight gain 50 with nausea no vomiting can keep anything down persistently symptoms are worsening. Patient has no travel show sick contacts did see 5 primary care doctor last week for diarrhea and illness and was put on medication which is not helping. MD Complaint: generalized weakness -: hour(s) Location: generalized Severity: moderate Severity scale (1-10): 5 Quality: tingling, aching Consistency: constant Improves with: none Worsens with: none Context: history of similar Associated Symptoms: denies other symptoms - Related Data Home Medications Medication Instructions Recorded Confirmed Aspirin EC [Ecotrin Low Dose] 81 mg PO DAILY 07/29/16 03/16/23 Simvastatin [Zocor] 20 mg PO DAILY 04/21/19 03/16/23 Diphenoxylate HCl/Atropine 2 tab PO QID PRN 04/30/22 03/16/23 [Lomotil 2.5-0.025 mg Tablet] Omeprazole [PriLOSEC] 40 mg PO DAILY 04/30/22 03/16/23 DULoxetine HCL [Cymbalta] 60 mg PO BID 09/11/22 03/16/23 Famotidine [Pepcid] 20 mg PO DAILY 09/11/22 03/16/23 Loratadine [Claritin] 10 mg PO DAILY 09/11/22 03/16/23 Montelukast [Singulair] 10 mg PO DAILY 09/11/22 03/16/23 Tamsulosin HCl [Flomax] 0.4 mg PO DAILY 09/11/22 03/16/23 Previous Rx's Medication Instructions Recorded QUEtiapine XR [SEROquel XR] 200 mg PO HS #1 tab 11/16/21 Amoxic-Pot Clav 875-125Mg 1 tab PO BID 10 Days #20 tab 03/18/23 [Augmentin 875-125] amLODIPine [Norvasc] 5 mg PO DAILY #14 tab 03/18/23 Allergies Allergy/AdvReac Type Severity Reaction Status Date / Time No Known Allergies Allergy Verified 03/16/23 13:18 Review of Systems ROS Statement: Those systems with pertinent positive or pertinent negative responses have been documented in the HPI. ROS Other: All systems not noted in ROS Statement are negative. 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 Past Anesthesia/Blood Transfusion Reactions: No Reported Reaction Past Psychological History: No Psychological Hx Reported Smoking Status: Former smoker, Light tobacco smoker Past Alcohol Use History: None Reported Past Drug Use History: None Reported - Past Family History Father Family Medical History: Myocardial Infarction (ME) Additional Family Medical History / Comment(s): Pt did not know his father but they were told he of a ME at the age of 42 yrs. Mother Family Medical History: Vascular Disorder Additional Family Medical History / Comment(s): Mother at age 68yrs, pt was told possible d/t ruptured aneurysm in her neck. General Exam General appearance: alert, in no apparent distress Head exam: Present: atraumatic, normocephalic, normal inspection Eye exam: Present: normal appearance, PERRL, EOMI. Absent: scleral icterus, conjunctival injection, periorbital swelling ENT exam: Present: normal exam, mucous membranes moist Neck exam: Present: normal inspection. Absent: tenderness, meningismus, lymphadenopathy Respiratory exam: Present: normal lung sounds bilaterally. Absent: respiratory distress, wheezes, rales, rhonchi, stridor Cardiovascular Exam: Present: regular rate, normal rhythm, normal heart sounds. Absent: systolic murmur, diastolic murmur, rubs, gallop, clicks GI/Abdominal exam: Present: soft, normal bowel sounds. Absent: distended, tenderness, guarding, rebound, rigid Extremities exam: Present: normal inspection, full ROM, normal capillary refill. Absent: tenderness, pedal edema, joint swelling, calf tenderness Back exam: Present: normal inspection Neurological exam: Present: alert, oriented X3, CN II-XII intact Psychiatric exam: Present: normal affect, normal mood Skin exam: Present: warm, dry, intact, normal color. Absent: rash Course Vital Signs 06/03/23 06/03/23 22:55 23:08 Temperature 97.8 F Pulse Rate 86 84 Respiratory 16 17 Rate Blood Pressure 107/75 116/66 O2 Sat by Pulse 98 99 Oximetry - Reevaluation(s) Reevaluation #1: 06/03/23 23:44 Record is reviewed Reevaluation #2: 06/03/23 23:44 Patient symptoms are very Reevaluation #3: 06/04/23 03:52 Patient informed results questions answered Reevaluation #4: 06/03/23 23:07 Was pt. sent in by a medical professional or institution (Dr. PA, GRINDING AND SPRAYING SUPERVISOR, urgent care, hospital, or [facility]...) When possible be specific @ -no Did you speak to anyone other than the patient for history (EMS, parent, family, police, friend...)? What history was obtained from this source @ -no Did you review nursing and triage notes (agree or disagree)? Why? @ -agree Are old charts reviewed (outside hosp., previous admission, EMS record, old EKG, old radiological studies, urgent care reports/EKG's, [facility] records)? Report findings @ -yes Differential Diagnosis (chest pain, altered mental status, abdominal pain women, abdominal pain men, vaginal bleeding, weakness, fever, dyspnea, syncope, headache, dizziness, GI bleed, back pain, seizure, CVA, palpatations, mental health, musculoskeletal)? @ -prior EKG interpreted by me (3pts min.). @ -yes X-rays interpreted by me (1pt min.). @ -yes CT interpreted by me (1pt min.). @ -no U/S interpreted by me (1pt. min.). @ -no What testing was considered but not performed or refused? (CT, X-rays, U/S, labs)? Why? @ -none What meds were considered but not given or refused? Why? @ -none Did you discuss the management of the patient with other professionals (professionals i.e. , PA, GR[employer]ING AND SPRAYING SUPERVISOR, lab, RT, psych nurse, director social, welding machine operator thermit, teacher, electrical engineering drafting officer, case monitor)? Give summary @ -no Was smoking cessation discussed for >3mins.? @ -no Was critical care preformed (if so, how long)? @ -no Were there social determinants of health that impacted care today? How? (Homelessness, low income, unemployed, alcoholism, drug addiction, transportation, low edu. Level, literacy, decrease access to med. care, detention, rehab)? @ -none Was there de-escalation of care discussed even if they declined (Discuss DNR or withdrawal of care, Hospice)? DNR status @ -no What co-morbidities impacted this encounter? (DM, HTN, Smoking, COPD, CAD, Cancer, CVA, ARF, Chemo, Hep., AIDS, mental health diagnosis, sleep apnea, morbid obesity)? @ -none Was patient admitted / discharged? Hospital course, mention meds given and route, prescriptions, significant lab abnormalities, going to OR and other pertinent info. @ - Undiagnosed new problem with uncertain prognosis? @ -no Drug Therapy requiring intensive monitoring for toxicity (Heparin, Nitro, Insulin, Cardizem)? @ -no Were any procedures done? @ -no Diagnosis/symptom? @ - Acute, or Chronic, or Acute on Chronic? @ -Acute Uncomplicated (without systemic symptoms) or Complicated (systemic symptoms)? @ -Complicated Side effects of treatment? @ -no Exacerbation, Progression, or Severe Exacerbation? @ -exacerbation Poses a threat to life or bodily function? How? (Chest pain, USA, ME, pneumonia, PE, COPD, DKA, ARF, appy, cholecystitis, CVA, Diverticulitis, Homicidal, Suicidal, threat to staff... and all critical care pts) @ -yes Reevaluation #5: 06/04/23 03:52 Differential Weakness: Hypoglycemia, shock, sepsis, hyponatremia, anemia, infection, ME, ETOH, adverse medicine reaction, overdose, stroke, this is not meant to be an all-inclusive list. - Consultations Consultation #1: Spoke with [facility] were agreeable to admit the patient Medical Decision Making - Medical Decision Making 82 male D to the emergency department F for evaluation of severe weakness. P rubio is able move all extremities but he states she's having can barely stand up due to increasing weakness. Patient has had nausea vomiting diarrhea and recent place on antibiotics. Patient today has inability to ambulate secondary to weakness elevated troponin will admit for further evaluation management - Lab Data Result diagrams: 06/03/23 23:30 06/03/23 23:30 Lab Results 06/03/23 06/03/23 06/03/23 Range/Units 23:30 23:30 23:30 WBC 8.3 (3.8-10.6) k/uL RBC 3.84 L (4.30-5.90) m/uL Hgb 11.9 L (13.0-17.5) gm/dL Hct 35.4 L (39.0-53.0) % MCV 92.3 (80.0-100.0) fL MCH 31.0 (25.0-35.0) pg MCHC 33.6 (31.0-37.0) g/dL RDW 12.5 (11.5-15.5) % Plt Count 165 (150-450) k/uL MPV 8.7 Neutrophils % 68 % Lymphocytes % 25 % Monocytes % 5 % Eosinophils % 1 % Basophils % 0 % Neutrophils # 5.6 (1.3-7.7) k/uL Lymphocytes # 2.0 (1.0-4.8) k/uL Monocytes # 0.4 (0-1.0) k/uL Eosinophils # 0.1 (0-0.7) k/uL Basophils # 0.0 (0-0.2) k/uL PT 12.2 H (9.0-12.0) sec INR 1.2 H (<1.2) APTT 27.5 (22.0-30.0) sec Sodium 131 L (137-145) mmol/L Potassium 4.6 (3.5-5.1) mmol/L Chloride 104 (98-107) mmol/L Carbon Dioxide 17 L (22-30) mmol/L Anion Gap 10 mmol/L BUN 46 H (9-20) mg/dL Creatinine 2.17 H (0.66-1.25) mg/dL Est GFR (CKD-EPI)AfAm 31 (>60 ml/min/1.73 sqM) Est GFR (CKD-EPI)NonAf 27 (>60 ml/min/1.73 sqM) Glucose 131 H (74-99) mg/dL Lactic Ac Sepsis Rflx Plasma Lactic Acid J Carlos (0.7-2.0) mmol/L Calcium 9.0 (8.4-10.2) mg/dL Phosphorus 4.2 (2.5-4.5) mg/dL Magnesium 1.6 (1.6-2.3) mg/dL Total Bilirubin 1.0 (0.2-1.3) mg/dL AST 46 (17-59) U/L ALT 26 (4-49) U/L Alkaline Phosphatase 92 (38-126) U/L Creatine Kinase (55-170) U/L CK-MB (CK-2) (0.0-3.4) ng/mL Troponin I (0.000-0.034) ng/mL NT-Pro-B Natriuret Pep 2070 pg/mL Total Protein 6.8 (6.3-8.2) g/dL Albumin 3.6 (3.5-5.0) g/dL Urine Color Urine Appearance (Clear) Urine pH (5.0-8.0) Ur Specific Beaver (1.001-1.035) Urine Protein (Negative) Urine Glucose (UA) (Negative) Urine Ketones (Negative) Urine Blood (Negative) Urine Nitrite (Negative) Urine Bilirubin (Negative) Urine Urobilinogen (<2.0) mg/dL Ur Leukocyte Esterase (Negative) 06/03/23 06/03/23 06/03/23 Range/Units 23:30 23:30 23:50 WBC (3.8-10.6) k/uL RBC (4.30-5.90) m/uL Hgb (13.0-17.5) gm/dL Hct (39.0-53.0) % MCV (80.0-100.0) fL MCH (25.0-35.0) pg MCHC (31.0-37.0) g/dL RDW (11.5-15.5) % Plt Count (150-450) k/uL MPV Neutrophils % % Lymphocytes % % Monocytes % % Eosinophils % % Basophils % % Neutrophils # (1.3-7.7) k/uL Lymphocytes # (1.0-4.8) k/uL Monocytes # (0-1.0) k/uL Eosinophils # (0-0.7) k/uL Basophils # (0-0.2) k/uL PT (9.0-12.0) sec INR (<1.2) APTT (22.0-30.0) sec Sodium (137-145) mmol/L Potassium (3.5-5.1) mmol/L Chloride (98-107) mmol/L Carbon Dioxide (22-30) mmol/L Anion Gap mmol/L BUN (9-20) mg/dL Creatinine (0.66-1.25) mg/dL Est GFR (CKD-EPI)AfAm (>60 ml/min/1.73 sqM) Est GFR (CKD-EPI)NonAf (>60 ml/min/1.73 sqM) Glucose (74-99) mg/dL Lactic Ac Sepsis Rflx Plasma Lactic Acid J Carlos 2.2 H* (0.7-2.0) mmol/L Calcium (8.4-10.2) mg/dL Phosphorus (2.5-4.5) mg/dL Magnesium (1.6-2.3) mg/dL Total Bilirubin (0.2-1.3) mg/dL AST (17-59) U/L ALT (4-49) U/L Alkaline Phosphatase (38-126) U/L Creatine Kinase (55-170) U/L CK-MB (CK-2) (0.0-3.4) ng/mL Troponin I 0.112 H* (0.000-0.034) ng/mL NT-Pro-B Natriuret Pep pg/mL Total Protein (6.3-8.2) g/dL Albumin (3.5-5.0) g/dL Urine Color Yellow Urine Appearance Clear (Clear) Urine pH 5.5 (5.0-8.0) Ur Specific Beaver 1.021 (1.001-1.035) Urine Protein Trace H (Negative) Urine Glucose (UA) Negative (Negative) Urine Ketones Negative (Negative) Urine Blood Negative (Negative) Urine Nitrite Negative (Negative) Urine Bilirubin Negative (Negative) Urine Urobilinogen <2.0 (<2.0) mg/dL Ur Leukocyte Esterase Negative (Negative) 06/04/23 06/04/23 06/04/23 Range/Units 00:00 00:00 00:53 WBC (3.8-10.6) k/uL RBC (4.30-5.90) m/uL Hgb (13.0-17.5) gm/dL Hct (39.0-53.0) % MCV (80.0-100.0) fL MCH (25.0-35.0) pg MCHC (31.0-37.0) g/dL RDW (11.5-15.5) % Plt Count (150-450) k/uL MPV Neutrophils % % Lymphocytes % % Monocytes % % Eosinophils % % Basophils % % Neutrophils # (1.3-7.7) k/uL Lymphocytes # (1.0-4.8) k/uL Monocytes # (0-1.0) k/uL Eosinophils # (0-0.7) k/uL Basophils # (0-0.2) k/uL PT (9.0-12.0) sec INR (<1.2) APTT (22.0-30.0) sec Sodium (137-145) mmol/L Potassium (3.5-5.1) mmol/L Chloride (98-107) mmol/L Carbon Dioxide (22-30) mmol/L Anion Gap mmol/L BUN (9-20) mg/dL Creatinine (0.66-1.25) mg/dL Est GFR (CKD-EPI)AfAm (>60 ml/min/1.73 sqM) Est GFR (CKD-EPI)NonAf (>60 ml/min/1.73 sqM) Glucose (74-99) mg/dL Lactic Ac Sepsis Rflx Y Plasma Lactic Acid J Carlos (0.7-2.0) mmol/L Calcium (8.4-10.2) mg/dL Phosphorus (2.5-4.5) mg/dL Magnesium (1.6-2.3) mg/dL Total Bilirubin (0.2-1.3) mg/dL AST (17-59) U/L ALT (4-49) U/L Alkaline Phosphatase (38-126) U/L Creatine Kinase 149 (55-170) U/L CK-MB (CK-2) 4.2 H (0.0-3.4) ng/mL Troponin I (0.000-0.034) ng/mL NT-Pro-B Natriuret Pep pg/mL Total Protein (6.3-8.2) g/dL Albumin (3.5-5.0) g/dL Urine Color Urine Appearance (Clear) Urine pH (5.0-8.0) Ur Specific Beaver (1.001-1.035) Urine Protein (Negative) Urine Glucose (UA) (Negative) Urine Ketones (Negative) Urine Blood (Negative) Urine Nitrite (Negative) Urine Bilirubin (Negative) Urine Urobilinogen (<2.0) mg/dL Ur Leukocyte Esterase (Negative) - Radiology Data Radiology results: report reviewed (X-ray chest and lumbar spine are negative for traumatic injury), image reviewed Disposition Clinical Impression: Weakness, NSTEMI (non-ST elevated myocardial infarction), Generalized weakness, Multiple falls Disposition: ADMITTED IP TO THIS HOSP Condition: Fair Is patient prescribed a controlled substance at d/c from ED?: No Referrals: Kenneth Luciano MD [Primary Care Provider] - 1-2 days Time of Disposition: 03:50
[2023-06-04 00:19] LABS: Appearance,Urine Clear (Clear); Bilirubin,Urine Negative (Negative); Blood,Urine Negative (Negative); Glucose,Urine (UA) Negative (Negative); Ketones,Urine Negative (Negative); Leukocyte Esterase,Urine Negative (Negative); Nitrite,Urine Negative (Negative); PH, Urine 5.5 (5.0-8.0); Protein,Urine Trace (Negative); Specific Gravity,Urine 1.021 (1.001-1.035); Urobilinogen,Urine <2.0 mg/dL (<2.0)
[2023-06-04 00:20] LABS: INR 1.2 (<1.2); Partial Thromboplastin Time 27.5 sec (22.0-30.0); Prothrombin Time 12.2 sec (9.0-12.0)
[2023-06-04 00:23] LABS: ALT 26 U/L (4-49); AST 46 U/L (17-59); African American GFR (CKD) 31 (>60 ml/min/1.73 sqM); Albumin 3.6 g/dL (3.5-5.0); Alkaline Phosphatase 92 U/L (38-126); Anion Gap 10 mmol/L; Blood Urea Nitrogen 46 mg/dL (9-20); Carbon Dioxide 17 mmol/L (22-30); Chloride 104 mmol/L (98-107); Glucose 131 mg/dL (74-99); Magnesium 1.6 mg/dL (1.6-2.3); Non-African American GFR(CKD) 27 (>60 ml/min/1.73 sqM); Phosphorus 4.2 mg/dL (2.5-4.5); Potassium 4.6 mmol/L (3.5-5.1); Sodium 131 mmol/L (137-145); Total Protein 6.8 g/dL (6.3-8.2)
[2023-06-04 00:29] LABS: Color,Urine Yellow
[2023-06-04 00:30] LABS: NT-Pro-B-Type Natriuretic Pept 2070 pg/mL
[2023-06-04 00:35] LABS: Basophils % (A) 0 %; Eosinophils # (A) 0.1 k/uL (0-0.7); Eosinophils % (A) 1 %; HCT 35.4 % (39.0-53.0); HGB 11.9 gm/dL (13.0-17.5); Lymphocytes % (A) 25 %; MCHC 33.6 g/dL (31.0-37.0); MCV 92.3 fL (80.0-100.0); Mean Platelet Volume 8.7; Monocytes # (A) 0.4 k/uL (0-1.0); Monocytes % (A) 5 %; Neutrophils # (A) 5.6 k/uL (1.3-7.7); Neutrophils % (A) 68 %; Platelet Count 165 k/uL (150-450); RBC 3.84 m/uL (4.30-5.90); RDW 12.5 % (11.5-15.5); WBC 8.3 k/uL (3.8-10.6)
--- NOTE | 2023-06-04 03:28 | XR ---
EXAMINATION TYPE: XR chest 1V DATE OF EXAM: 06/04/2023 COMPARISON: 03/16/2023 HISTORY: 82-year-old male with weakness TECHNIQUE: Single frontal view of the chest is obtained. FINDINGS: Median sternotomy wires are present with post-CABG clips in the mediastinum. Heart upper l imits of normal in size. Prominent skin folds project over both hemithoraces. No consolidation, pneum othorax, or pleural effusion seen. IMPRESSION: Post-CABG changes. No definite acute process.
--- NOTE | 2023-06-04 03:31 | XR ---
EXAMINATION TYPE: XR lumbar spine 2 or 3V, XR pelvis AP view DATE OF EXAM: 06/04/2023 Comparison: None Clinical History: 82-year-old male weak Findings: Lumbar spine: 5 lumbar type vertebral bodies. Hypertrophic facet arthropathy throughout. Mild multilevel degenerati ve disc disease along with endplate spondylosis. Trace grade 1 anterolisthesis L4-L5. Remaining align ment is maintained. Several levels of bridging anterior endplate spondylosis suggest T11-T12 and L1-L 2. Vertebral body heights are preserved. Pelvis: Brachytherapy seeds at the level of the prostate gland. Mild degenerative change in both hips. Penile implant noted. External rotation at the hips limits assessment of the femoral neck regions. No displ aced fracture seen. Surgical material quadrant from prior bowel surgery. Impression: 1. Lumbar spine: Hypertrophic facet arthropathy. Mild multilevel degenerative disc disease and endpla te spondylosis. Trace degenerative grade 1 anterolisthesis L4-L5. No vertebral compression collapse. 2. Pelvis: Mild bilateral hip OA. Slightly limited assessment of the femoral neck regions due to hip positioning. No displaced fracture seen. Brachytherapy seeds in the prostate gland and penile implant .
[2023-06-04] MEDS ORDERED: ONDANSETRON 4 MG/2 ML VIAL IVP PRN (03:44)
[2023-06-04] MEDS ORDERED: MORPHINE SULFATE 4 MG/ML SYRINGE IV PRN (03:44)
[2023-06-04] MEDS ORDERED: NALOXONE 0.4 MG/ML 1 ML VIAL IV PRN (03:44)
[2023-06-04] MEDS ORDERED: ACETAMINOPHEN TAB 325 MG TAB PO PRN (10:52)
--- NOTE | 2023-06-04 11:58 | P.HPIM ---
History of Present Illness Patient is an 82-year-old male came in with comments of diarrhea nausea vomiting secondary to antibiotic he was started on by PCP recently. Patient was comparing of generalized tiredness and weakness was comparing of back pain patie nt has lumbar degenerative disc disease on the x-rays that would obtain in the ER. Patient nausea vomiting and diarrhea improved at this time patient stopped taking his antibiotic came to ER patient is found to be in acute renal failure does have chronic kidney disease stage IV with baseline creatinine of 1.7 present creatinine being 2.17. Patient was also hyponatremic. Patient has mildly elevated troponins with no significant acute ST-T wave changes denied any chest pain first troponin was 0.113 and secondary 0.097. Because of this cardiology was consulted from ER. REVIEW OF SYSTEMS: CONSTITUTIONAL: As mentioned in HPI HEENT: No recent visual problems or hearing problems. Denied any sore throat. CARDIOVASCULAR: No chest pain, orthopnea, PND, no palpitations, no syncope. PULMONARY: No shortness of breath, no cough, no hemoptysis. GASTROINTESTINAL: no abdominal pain. NEUROLOGICAL: No headaches, no weakness, no numbness. HEMATOLOGICAL: Denies any bleeding or petechiae. GENITOURINARY: Denies any burning micturition, frequency, or urgency. MUSCULOSKELETAL/RHEUMATOLOGICAL: Denies any joint pain, swelling, or any muscle pain. ENDOCRINE: Denies any polyuria or polydipsia. The rest of the 14-point review of systems is negative. PHYSICAL EXAMINATION: GENERAL: The patient is alert and oriented x3, not in any acute distress. Well developed, well nourished. HEENT: Pupils are round and equally reacting to light. EOMI. No scleral icterus. No conjunctival pallor. Normocephalic, atraumatic. No pharyngeal erythema. No thyromegaly. CARDIOVASCULAR: S1 and S2 present. No murmurs, rubs, or gallops. PULMONARY: Chest is clear to auscultation, no wheezing or crackles. ABDOMEN: Soft, nontender, nondistended, normoactive bowel sounds. No palpable organomegaly. MUSCULOSKELETAL: No joint swelling or deformity. EXTREMITIES: No cyanosis, clubbing, or pedal edema. NEUROLOGICAL: Gross neurological examination did not reveal any focal deficits. SKIN: No rashes. Assessment and plan -Antibiotic associated diarrhea: We'll obtain C. diff if he continues to have diarrhea. Unknown what antibiotic patient is on and why patient is on antibiotic patient was not able to give a good history -Generalized fatigue: Seconded to dehydration from diarrhea -Dehydration -Acute renal failure, prerenal azotemia secondary to diarrhea IV fluids were started monitor overnight hospital discharge tomorrow -Hypovolemic hyponatremia: Secondary to diarrhea -Hyperchloremic metabolic acidosis -Mild troponin elevation: No evidence of acute microinfarction patient has troponin leak and type II non-ST elevation DC -History of coronary artery disease -Gases visual reflux disease -Hyperlipidemia -Hypertension -benign prostatic hypertrophy For above-mentioned chronic medical problems patient will be resumed on appropriate home medications DVT prophylaxis: Subcutaneous heparin Past Medical History Past Medical History: Coronary Artery Disease (CAD), Cancer, GERD/Reflux, Hyperlipidemia, Hypertension, Osteoarthritis (OA), Prostate Disorder, Syncope Additional Past Medical History / Comment(s): Syncope with FALLS, prostate cancer with radiated seed placed, colon cancer with small bowel resection/chronic diarrhea which has improved with medication, partial small bowel obstructions with conservative treatment/laparotomy with lysis of adhesions, ileus, 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 Past Anesthesia/Blood Transfusion Reactions: No Reported Reaction Past Psychological History: No Psychological Hx Reported Smoking Status: Former smoker, Light tobacco smoker Past Alcohol Use History: None Reported Past Drug Use History: None Reported - Past Family History Father Family Medical History: Myocardial Infarction (DC) Additional Family Medical History / Comment(s): Pt did not know his father but t hey were told he of a DC at the age of 42 yrs. Mother Family Medical History: Vascular Disorder Additional Family Medical History / Comment(s): Mother at age 68yrs, pt was told possible d/t ruptured aneurysm in her neck. Medications and Allergies Home Medications Medication Instructions Recorded Confirmed Type Aspirin EC [Ecotrin Low Dose] 81 mg PO DAILY 07/29/16 06/04/23 History Simvastatin [Zocor] 20 mg PO DAILY 04/21/19 06/04/23 History QUEtiapine XR [SEROquel XR] 200 mg PO HS #1 tab 11/16/21 06/04/23 Rx Diphenoxylate HCl/Atropine 2 tab PO QID PRN 04/30/22 03/16/23 History [Lomotil 2.5-0.025 mg Tablet] Omeprazole [PriLOSEC] 40 mg PO DAILY 04/30/22 06/04/23 History Famotidine [Pepcid] 20 mg PO DAILY 09/11/22 06/04/23 History Loratadine [Claritin] 10 mg PO DAILY 09/11/22 06/04/23 History Montelukast [Singulair] 10 mg PO DAILY 09/11/22 06/04/23 History Tamsulosin HCl [Flomax] 0.4 mg PO DAILY 09/11/22 06/04/23 History amLODIPine [Norvasc] 5 mg PO DAILY #14 tab 03/18/23 06/04/23 Rx Allergies Allergy/AdvReac Type Severity Reaction Status Date / Time No Known Allergies Allergy Verified 03/16/23 13:18 Physical Exam Vitals: Vital Signs Temp Pulse Pulse Resp BP BP Pulse Ox 06/04/23 08:01 97.6 F 81 17 159/83 99 06/04/23 07:50 97.9 F 77 18 119/68 100 06/04/23 04:10 138/74 98 06/04/23 04:00 68 126/77 98 06/04/23 00:00 75 140/80 97 06/03/23 23:08 84 17 116/66 99 06/03/23 22:55 97.8 F 86 16 107/75 98 Intake and Output 06/03/23 06/04/23 06/04/23 22:59 06:59 14:59 Other: Voiding Method Bedside Commode Urinal Diaper Weight 61.235 kg 56 kg Results CBC & Chem 7: 06/03/23 23:30 06/03/23 23:30 Labs: Abnormal Lab Results - Last 24 Hours (Table) 06/03/23 06/03/23 06/03/23 Range/Units 23:30 23:30 23:30 RBC 3.84 L (4.30-5.90) m/uL Hgb 11.9 L (13.0-17.5) gm/dL Hct 35.4 L (39.0-53.0) % PT 12.2 H (9.0-12.0) sec INR 1.2 H (<1.2) Sodium 131 L (137-145) mmol/L Carbon Dioxide 17 L (22-30) mmol/L BUN 46 H (9-20) mg/dL Creatinine 2.17 H (0.66-1.25) mg/dL Glucose 131 H (74-99) mg/dL Plasma Lactic Acid J Carlos (0.7-2.0) mmol/L CK-MB (CK-2) (0.0-3.4) ng/mL Troponin I (0.000-0.034) ng/mL Urine Protein (Negative) 06/03/23 06/03/23 06/03/23 Range/Units 23:30 23:30 23:50 RBC (4.30-5.90) m/uL Hgb (13.0-17.5) gm/dL Hct (39.0-53.0) % PT (9.0-12.0) sec INR (<1.2) Sodium (137-145) mmol/L Carbon Dioxide (22-30) mmol/L BUN (9-20) mg/dL Creatinine (0.66-1.25) mg/dL Glucose (74-99) mg/dL Plasma Lactic Acid [place] 2.2 H* (0.7-2.0) mmol/L CK-MB (CK-2) (0.0-3.4) ng/mL Troponin I 0.112 H* (0.000-0.034) ng/mL Urine Protein Trace H (Negative) 06/04/23 06/04/23 06/04/23 Range/Units 00:00 03:45 09:24 RBC (4.30-5.90) m/uL Hgb (13.0-17.5) gm/dL Hct (39.0-53.0) % PT (9.0-12.0) sec INR (<1.2) Sodium (137-145) mmol/L Carbon Dioxide (22-30) mmol/L BUN (9-20) mg/dL Creatinine (0.66-1.25) mg/dL Glucose (74-99) mg/dL Plasma Lactic Acid [place] (0.7-2.0) mmol/L CK-MB (CK-2) 4.2 H (0.0-3.4) ng/mL Troponin I 0.113 H* 0.097 H* (0.000-0.034) ng/mL Urine Protein (Negative)
[2023-06-04] MEDS: SODIUM CHLORIDE 0.9% 1,000 ML IV SCH (12:03)
[2023-06-04 13:21] VITALS: BMI 19.3
[2023-06-04] MEDS: CIPRODEX RIGHT EAR SCH ×2 (14:21→21:20)
[2023-06-04] MEDS: CIPROFLOXACIN HCL 500 MG PO SCH ×2 (14:21→21:20)
[2023-06-04] MEDS: ASPIRIN 81 MG PO SCH (16:54)
[2023-06-04] MEDS: HEPARIN SODIUM,PORCINE 5,000 UNIT/ML 1 ML VIAL SQ SCH (21:21)
[2023-06-04] MEDS: FAMOTIDINE 20 MG TAB PO SCH (21:21)
--- NOTE | 2023-06-04 22:28 | P.CRDCN ---
History of Present Illness Consult date: 06/04/23 History of present illness: HISTORY OF PRESENTING ILLNESS 82 year old who has been dealing with diarrhea, nausea and vomiting with poor oral intake was seen recently by PCP. Because of generalized weakness and low blood pressure he was referred to the ER. On admission he was noticed to have evidence of dehydration with ARTUR and elevated lactate. He also had an evidence of elevated troponin of 0.1138 0.097. For this cardiology was consulted His EKG shows normal sinus rhythm with no significant ST-T wave changes. He does have prior history of coronary artery disease. His chest x-ray does not show any acute cardiopulmonary process. REVIEW OF SYSTEMS 14 point review of system is negative except what is mentioned above in HPI. PHYSICAL EXAMINATION Vital signs reviewed. Head: Normocephalic. Eyes: Sclerae nonicteric. Neck: Brisk carotid upstroke, no jugular venous distention. Lungs: Clear to auscultation. Heart: Regular rate and rhythm, S1-S2, no S3, no murmur or rub. Abdomen: Soft nontender, positive bowel sounds no organomegaly. Extremities: No edema, intact distal pulses. ASSESSMENT Elevated troponin, likely due to poor renal clearance and dehydration. Noncardiac-related Prior history of coronary artery disease Dehydration and ARTUR Elevated lactate due to dehydration Hypertension Dyslipidemia BPH PLAN Start patient on aspirin because of prior history of coronary artery disease. Once he starts taking oral intake and his diet improves, I would recommend adding atorvastatin factor discharge. No further cardiac testing is recommended at this time. Patient follow-up with cardiology clinic with an echocardiogram Cardiology was sign off Past Medical History Past Medical History: Coronary Artery Disease (CAD), Cancer, GERD/Reflux, Hyperlipidemia, Hypertension, Osteoarthritis (OA), Prostate Disorder, Syncope Additional Past Medical History / Comment(s): Syncope with FALLS, prostate cancer with radiated seed placed, colon cancer with small bowel resection/chronic diarrhea which has improved with medication, partial small bowel obstructions with conservative treatment/laparotomy with lysis of adhesions, ileus, 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 Past Anesthesia/Blood Transfusion Reactions: No Reported Reaction Past Psychological History: No Psychological Hx Reported Additional Psychological History / Comment(s): Pt resides in a trailer in [place]. Smoking Status: Former smoker, Light tobacco smoker Past Alcohol Use History: None Reported Additional Past Alcohol Use History / Comment(s): Patient reports that he would smoke cigars occasionally but none for many years. Past Drug Use History: None Reported - Past Family History Father Family Medical History: Myocardial Infarction (RI) Additional Family Medical History / Comment(s): Pt did not know his father but they were told he of a RI at the age of 42 yrs. Mother Family Medical History: Vascular Disorder Additional Family Medical History / Comment(s): Mother at age 68yrs, pt was told possible d/t ruptured aneurysm in her neck. Medications and Allergies Home Medications Medication Instructions Recorded Confirmed Type QUEtiapine XR [SEROquel XR] 200 mg PO HS #1 tab 11/16/21 06/04/23 Rx Diphenoxylate HCl/Atropine 2 tab PO QID PRN 04/30/22 06/04/23 History [Lomotil 2.5-0.025 mg Tablet] Tamsulosin HCl [Flomax] 0.4 mg PO DAILY 09/11/22 06/04/23 History Ciprofloxacin HCl [Cipro] 500 mg PO BID 06/04/23 06/04/23 History Ciprofloxacin HCl/Dexameth 4 drop RIGHT EAR BID 06/04/23 06/04/23 History [Ciproflox-Dexameth Otic Susp] DULoxetine HCL [Cymbalta] 30 mg PO DAILY 06/04/23 06/04/23 History Doxycycline Hyclate 100 mg PO BID 06/04/23 06/04/23 History HYDROcodone/APAP 5-325MG [[place] 1 tab PO QID PRN 06/04/23 06/04/23 History 5-325] Octreotide Acetate,Mi-Spheres 10 mg IM Q30D 06/04/23 06/04/23 History [SandoSTATIN LAR Depot] Octreotide Acetate,Mi-Spheres 30 mg IM Q30D 06/04/23 06/04/23 History [SandoSTATIN [place]] Ondansetron Odt [Zofran Odt] 4 mg PO QID PRN 06/04/23 06/04/23 History Ondansetron [Zofran] 4 mg PO Q12HR PRN 06/04/23 06/04/23 History rOPINIRole HCL [Requip] 0.25 mg PO HS PRN 06/04/23 06/04/23 History Allergies Allergy/AdvReac Type Severity Reaction Status Date / Time No Known Allergies Allergy Verified 06/04/23 13:19 Physical Exam Vitals: Vital Signs Temp Pulse Pulse Resp BP BP Pulse Ox 06/04/23 16:01 95 149/75 97 06/04/23 12:05 97.6 F 81 17 159/83 99 06/04/23 12:03 86 17 128/78 98 06/04/23 08:01 97.6 F 81 17 159/83 99 06/04/23 07:50 97.9 F 77 18 119/68 100 06/04/23 04:10 138/74 98 06/04/23 04:00 68 126/77 98 06/04/23 00:00 75 140/80 97 06/03/23 23:08 84 17 116/66 99 06/03/23 22:55 97.8 F 86 16 107/75 98 Intake and Output 06/04/23 06/04/23 06/04/23 06:59 14:59 22:59 Intake Total 118 Output Total 450 Balance -332 Intake: Oral 118 Output: Urine 450 Other: Voiding Method Bedside Commode Urinal Diaper # Bowel Movements 1 Weight 56 kg Results 06/03/23 23:30 06/03/23 23:30 Cardiac Enzymes 06/03/23 06/03/23 06/04/23 Range/Units 23:30 23:30 00:00 AST 46 (17-59) U/L CK-MB (CK-2) 4.2 H (0.0-3.4) ng/mL Troponin I 0.112 H* (0.000-0.034) ng/mL 06/04/23 06/04/23 06/04/23 Range/Units 03:45 09:24 12:03 AST (17-59) U/L CK-MB (CK-2) (0.0-3.4) ng/mL Troponin I 0.113 H* 0.097 H* 0.112 H* (0.000-0.034) ng/mL Coagulation 06/03/23 Range/Units 23:30 PT 12.2 H (9.0-12.0) sec APTT 27.5 (22.0-30.0) sec CBC 06/03/23 Range/Units 23:30 WBC 8.3 (3.8-10.6) k/uL RBC 3.84 L (4.30-5.90) m/uL Hgb 11.9 L (13.0-17.5) gm/dL Hct 35.4 L (39.0-53.0) % Plt Count 165 (150-450) k/uL Comprehensive Metabolic Panel 06/03/23 Range/Units 23:30 Sodium 131 L (137-145) mmol/L Potassium 4.6 (3.5-5.1) mmol/L Chloride 104 (98-107) mmol/L Carbon Dioxide 17 L (22-30) mmol/L BUN 46 H (9-20) mg/dL Creatinine 2.17 H (0.66-1.25) mg/dL Glucose 131 H (74-99) mg/dL Calcium 9.0 (8.4-10.2) mg/dL AST 46 (17-59) U/L ALT 26 (4-49) U/L Alkaline Phosphatase 92 (38-126) U/L Total Protein 6.8 (6.3-8.2) g/dL Albumin 3.6 (3.5-5.0) g/dL Current Medications Generic Name Dose Route Start Last Admin Trade Name Freq PRN Reason Stop Dose Admin Acetaminophen 650 mg 06/04/23 10:52 Acetaminophen Tab 325 Mg Tab PO Q4HR PRN Fever and/ or Pain Aspirin 81 mg 06/04/23 16:45 06/04/23 16:54 Aspirin 81 Mg PO 81 mg DAILY MYLA Administration Famotidine 20 mg 06/04/23 21:00 06/04/23 21:21 Famotidine 20 Mg Tab PO 20 mg HS MYLA Administration Heparin Sodium (Porcine) 5,000 unit 06/04/23 21:00 06/04/23 21:21 Heparin Sodium,Porcine 5,000 Unit/Ml 1 Ml Vial SQ 5,000 unit Q12HR MYLA Administration Sodium Chloride 1,000 mls @ 75 mls/hr 06/04/23 11:00 06/04/23 12:03 Saline 0.9% IV 75 mls/hr .[id number] MYLA Administration Naloxone HCl 0.2 mg 06/04/23 03:44 Naloxone 0.4 Mg/Ml 1 Ml Vial IV Q2M PRN Opioid Reversal Doxycycline Hyclate 1 each 06/04/23 14:30 06/04/23 21:20 100mg Capsule PO 1 each BID MYLA Administration Ciprofloxacin Hcl 1 each 06/04/23 14:30 06/04/23 21:20 500mg Tablet PO 1 each BID MYLA Administration Ciprodex ( 4 each 06/04/23 14:30 06/04/23 21:20 Ciprofloxacin 0.3% RIGHT EAR 4 each And Dexamethasone 0. BID MYLA Administration 1%) Otic Suspension Ondansetron HCl 4 mg 06/04/23 03:44 06/04/23 14:18 Ondansetron 4 Mg/2 Ml Vial IVP 4 mg Q8HR PRN Administration Nausea And Vomiting Intake and Output 06/04/23 06/04/23 06/04/23 06:59 14:59 22:59 Intake Total 118 Output Total 450 Balance -332 Intake: Oral 118 Output: Urine 450 Other: Voiding Method Bedside Commode Urinal Diaper # Bowel Movements 1 Weight 56 kg Patient Weight 06/05/23 06:59 Weight 56 kg 06/03/23 23:30 06/03/23 23:30
[2023-06-05] MEDS: SODIUM CHLORIDE 0.9% 1,000 ML IV SCH (02:17)
[2023-06-05 08:35] LABS: African American GFR (CKD) 51 (>60 ml/min/1.73 sqM); Blood Urea Nitrogen 31 mg/dL (9-20); Calcium 8.2 mg/dL (8.4-10.2); Carbon Dioxide 17 mmol/L (22-30); Glucose 114 mg/dL (74-99); Magnesium 1.5 mg/dL (1.6-2.3); Non-African American GFR(CKD) 44 (>60 ml/min/1.73 sqM); Phosphorus 2.9 mg/dL (2.5-4.5); Sodium 132 mmol/L (137-145)
[2023-06-05 09:16] LABS: Anion Gap 6 mmol/L; Chloride 109 mmol/L (98-107)
[2023-06-05] MEDS: HEPARIN SODIUM,PORCINE 5,000 UNIT/ML 1 ML VIAL SQ SCH ×2 (09:33→20:31)
[2023-06-05] MEDS: ASPIRIN 81 MG PO SCH (09:33)
[2023-06-05] MEDS: CIPRODEX RIGHT EAR SCH ×2 (09:33→20:31)
[2023-06-05] MEDS: CIPROFLOXACIN HCL 500 MG PO SCH ×2 (09:33→20:31)
--- NOTE | 2023-06-05 12:49 | P.PN ---
Subjective Patient is an 82-year-old male came in with comments of diarrhea nausea vomiting secondary to antibiotic he was started on by PCP recently. Patient was comparing of generalized tiredness and weakness was comparing of back pain patient has lumbar degenerative disc disease on the x-rays that would obtain in the ER. Patient nausea vomiting and diarrhea improved at this time patient stopped taking his antibiotic came to ER patient is found to be in acute renal failure does have chronic kidney disease stage IV with baseline creatinine of 1.7 present creatinine being 2.17. Patient was also hyponatremic. Patient has mildly elevated troponins with no significant acute ST-T wave changes denied any chest pain first troponin was 0.113 and secondary 0.097. Because of this cardiology was consulted from ER. 06/05/2023 Patient the serum creatinine improved no overnight events marginal improvement in serum sodium. Patient will be continued on IV fluids tonight. Physical therapy and occupational Evaluation. Constitutional: Denied any fatigue denied any fever. Cardio vascular: denied any chest pain, palpitations Gastrointestinal denied any nausea vomiting Pulmonary: Denied any shortness of breath cough Neurologic denied any new focal deficits All inpatient medications were reviewed and appropriate changes in these medications as dictated in the interval history and assessment and plan. PHYSICAL EXAMINATION: GENERAL: The patient is alert and oriented x3, not in any acute distress. Well developed, well nourished. HEENT: Pupils are round and equally reacting to light. EOMI. No scleral icterus. No conjunctival pallor. Normocephalic, atraumatic. No pharyngeal erythema. No thyromegaly. CARDIOVASCULAR: S1 and S2 present. No murmurs, rubs, or gallops. PULMONARY: Chest is clear to auscultation, no wheezing or crackles. ABDOMEN: Soft, nontender, nondistended, normoactive bowel sounds. No palpable organomegaly. MUSCULOSKELETAL: No joint swelling or deformity. EXTREMITIES: No cyanosis, clubbing, or pedal edema. NEUROLOGICAL: Gross neurological examination did not reveal any focal deficits. SKIN: No rashes. Assessment and plan -Antibiotic associated diarrhea: Resolved at this time -Generalized fatigue: Seconded to dehydration from diarrhea -Dehydration improved with IV fluids -Acute renal failure, prerenal azotemia secondary to diarrhea improved with IV fluids physical therapy and outpatient therapy evaluation possibility of discharge tomorrow -Hypovolemic hyponatremia: Secondary to diarrhea -Hyperchloremic metabolic acidosis -Mild troponin elevation: No evidence of acute myocardial infarction patient has troponin leak and type II non-ST elevation MA -History of coronary artery disease -Gases visual reflux disease -Hyperlipidemia -Hypertension -benign prostatic hypertrophy For above-mentioned chronic medical problems patient will be resumed on appropriate home medications DVT prophylaxis: Subcutaneous heparin Objective - Vital Signs Vital signs: Vital Signs Temp 98.6 F 06/05/23 09:31 Pulse 85 06/05/23 11:23 Resp 17 06/05/23 11:23 BP 142/58 06/05/23 11:23 Pulse Ox 95 06/05/23 11:23 FiO2 Intake & Output 06/04/23 06/05/23 06/05/23 18:59 06:59 18:59 Intake Total 118 Output Total 250 400 300 Balance -132 -400 -300 Weight 56 kg Intake: Oral 118 Output: Urine 250 400 300 Other: Voiding Method Bedside Commode Bedside Commode Bedside Commode Urinal Urinal Urinal Diaper Diaper Diaper # Voids 2 # Bowel Movements 1 1 - Labs CBC & Chem 7: 06/03/23 23:30 06/05/23 07:40 Labs: Abnormal Lab Results - Last 24 Hours (Table) 06/04/23 06/05/23 Range/Units 12:03 07:40 Sodium 132 L (137-145) mmol/L Chloride 109 H (98-107) mmol/L Carbon Dioxide 17 L (22-30) mmol/L BUN 31 H (9-20) mg/dL Creatinine 1.45 H (0.66-1.25) mg/dL Glucose 114 H (74-99) mg/dL Calcium 8.2 L (8.4-10.2) mg/dL Magnesium 1.5 L (1.6-2.3) mg/dL Troponin I 0.112 H* (0.000-0.034) ng/mL
[2023-06-05 19:25] LABS: Appearance,Urine Clear (Clear); Bilirubin,Urine Negative (Negative); Blood,Urine Negative (Negative); Color,Urine Yellow; Glucose,Urine (UA) 1+ (Negative); Ketones,Urine Negative (Negative); Leukocyte Esterase,Urine Negative (Negative); Nitrite,Urine Negative (Negative); PH, Urine 5.5 (5.0-8.0); Protein,Urine Negative (Negative); Specific Gravity,Urine 1.017 (1.001-1.035); Urobilinogen,Urine <2.0 mg/dL (<2.0)
[2023-06-05] MEDS: QUEtiapine 100 MG TAB PO SCH (20:31)
[2023-06-05] MEDS: FAMOTIDINE 20 MG TAB PO SCH (20:31)
[2023-06-06] MEDS: HEPARIN SODIUM,PORCINE 5,000 UNIT/ML 1 ML VIAL SQ SCH ×2 (08:27→22:14)
[2023-06-06] MEDS: TAMSULOSIN 0.4 MG CAP.ER.24H PO SCH (08:28)
[2023-06-06] MEDS: QUEtiapine 100 MG TAB PO SCH ×2 (08:28→22:15)
[2023-06-06] MEDS: ASPIRIN 81 MG PO SCH (08:28)
[2023-06-06] MEDS: CIPROFLOXACIN HCL 500 MG PO SCH ×2 (08:29→22:17)
[2023-06-06] MEDS: CIPRODEX RIGHT EAR SCH ×2 (08:30→22:16)
--- NOTE | 2023-06-06 08:43 | P.DS ---
Providers Date of admission: 06/04/23 03:44 Expected date of discharge: 06/06/23 Attending physician: Kenneth Luciano MD Consults: 06/04/23 03:44 Consult Physician Routine Consulting Provider: Kristy Hong Consult Reason/Comments: elevTrop Do you want consulting provider notified?: Yes Primary care physician: Kenneth Luciano MD Hospital Course: Patient is an 82-year-old male came in with comments of diarrhea nausea vomiting secondary to antibiotic he was started on by PCP recently. Patient was comparing of generalized tiredness and weakness was comparing of back pain pat ient has lumbar degenerative disc disease on the x-rays that would obtain in the ER. Patient nausea vomiting and diarrhea improved at this time patient stopped taking his antibiotic came to ER patient is found to be in acute renal failure does have chronic kidney disease stage IV with baseline creatinine of 1.7 present creatinine being 2.17. Patient was also hyponatremic. Patient has mildly elevated troponins with no significant acute ST-T wave changes denied any chest pain first troponin was 0.113 and secondary 0.097. Because of this cardiology was consulted from ER. Pt admitted to medicine, Cardiology consulted. He was recommended to start ASA and Cardiology otherwise signed off. Pt given IVF hydration with improvement of his renal function. On day of discharge his diarrhea had resolved and renal function normalized. Pt is discharged in stable condition and recommened to follow up with his PCP and Plastic Surgeon on discharge. Patient Condition at Discharge: Fair Plan - Discharge Summary New Discharge Prescriptions: New Aspirin 81 mg PO DAILY #30 tab Continue QUEtiapine XR [SEROquel XR] 200 mg PO HS #1 tab Diphenoxylate HCl/Atropine [Lomotil 2.5-0.025 mg Tablet] 2 tab PO QID PRN PRN Reason: Diarrhea Octreotide Acetate,Mi-Spheres [SandoSTATIN [place]] 10 mg IM Q30D Ondansetron [Zofran] 4 mg PO Q12HR PRN PRN Reason: Nausea Ondansetron Odt [Zofran ODT] 4 mg PO QID PRN PRN Reason: Nausea HYDROcodone/APAP 5-325MG [[place] 5-325] 1 tab PO QID PRN PRN Reason: Pain DULoxetine HCL [Cymbalta] 30 mg PO DAILY Ciprofloxacin HCl/Dexameth [Ciproflox-Dexameth Otic Susp] 4 drop RIGHT EAR BID Tamsulosin HCl [Flomax] 0.4 mg PO DAILY rOPINIRole HCL [Requip] 0.25 mg PO HS PRN PRN Reason: RESTLESS LEGS Octreotide Acetate,Mi-Spheres [SandoSTATIN [place]] 30 mg IM Q30D Discontinued Ciprofloxacin HCl [Cipro] 500 mg PO BID Doxycycline Hyclate 100 mg PO BID Discharge Medication List QUEtiapine XR [SEROquel XR] 200 mg PO HS #1 tab 11/16/21 [Rx] Diphenoxylate HCl/Atropine [Lomotil 2.5-0.025 mg Tablet] 2 tab PO QID PRN 04/30/22 [History] Tamsulosin HCl [Flomax] 0.4 mg PO DAILY 09/11/22 [History] Ciprofloxacin HCl/Dexameth [Ciproflox-Dexameth Otic Susp] 4 drop RIGHT EAR BID 0 06/04/23 [History] DULoxetine HCL [Cymbalta] 30 mg PO DAILY 06/04/23 [History] HYDROcodone/APAP 5-325MG [[place] 5-325] 1 tab PO QID PRN 06/04/23 [History] Octreotide Acetate,Mi-Spheres [SandoSTATIN [place]] 10 mg IM Q30D 06/04/23 [History] Octreotide Acetate,Mi-Spheres [SandoSTATIN [place]] 30 mg IM Q30D 06/04/23 [History] Ondansetron Odt [Zofran ODT] 4 mg PO QID PRN 06/04/23 [History] Ondansetron [Zofran] 4 mg PO Q12HR PRN 06/04/23 [History] rOPINIRole HCL [Requip] 0.25 mg PO HS PRN 06/04/23 [History] Aspirin 81 mg PO DAILY #30 tab 06/06/23 [Rx] Follow up Appointment(s)/Referral(s): Kenneth Luciano MD [Primary Care Provider] - 1-2 days Discharge Disposition: HOME SELF-CARE
--- NOTE | 2023-06-06 11:40 | CA ---
Transthoracic Echo Report Name: Reinier Bajwa Age: 82 Gender: M : 1940 Exam Date: 06/06/2023 09:21 Exam Location: [facility] Ht (in): 67 Wt (lb): 123 Ordering Physician: Abel Sands MD ([id number]) Attending/Referring Phys: Embossing Press Operator Apprentice Laurita Ospina RDCS Procedure CPT: Indications: elevated trops Cardiac Hx: Hx of CABG Technical Quality: Good Contrast 1: Total Dose (mL): Contrast 2: Total Dose (mL): MEASUREMENTS (Male / Female) Normal Values 2D ECHO LV Diastolic Diameter PLAX 5.6 cm 4.2 - 5.9 / 3.9 - 5.3 cm LV Systolic Diameter PLAX 2.9 cm IVS Diastolic Thickness 1.1 cm 0.6 - 1.0 / 0.6 - 0.9 cm LVPW Diastolic Thickness 1.2 cm 0.6 - 1.0 / 0.6 - 0.9 cm LV Relative Wall Thickness 0.4 RV Internal Dim ED PLAX 2.9 cm LA Systolic Diameter LX 3.7 cm 3.0 - 4.0 / 2.7 - 3.8 cm LA Volume 44.2 cm??? 18 - 58 / 22 - 52 cm??? M-MODE Aortic Root Diameter MM 3.6 cm MV E Point Septal Separation 0.8 cm AV Cusp Separation MM 2.1 cm DOPPLER AV Peak Velocity 140.9 cm/s AV Peak Gradient 7.9 mmHg MV Area PHT 2.7 cm??? Mitral E Point Velocity 51.8 cm/s Mitral A Point Velocity 94.8 cm/s Mitral E to A Ratio 0.5 MV Deceleration Time 277.7 ms MV E' Velocity 3.9 cm/s Mitral E to MV E' Ratio 13.3 TR Peak Velocity 265.3 cm/s TR Peak Gradient 28.2 mmHg Right Ventricular Systolic Press 33.2 mmHg FINDINGS Left Ventricle Left ventricular ejection fraction is estimated at 60-65 %. Left ventricular cavity size normal. Mildly increased septal wall thickness. Right Ventricle Normal right ventricular size. Right ventricular systolic pressure within normal limits. Right Atrium Normal right atrial size. Left Atrium Normal left atrial size. Mitral Valve Structurally normal mitral valve. Mild mitral regurgitation. Aortic Valve Trileaflet aortic valve. Tricuspid Valve Structurally normal tricuspid valve. Mild tricuspid regurgitation. Pulmonic Valve Pulmonic valve not well visualized. Pericardium Small pericardial effusion. Aorta Normal size aortic root and proximal ascending aorta. CONCLUSIONS Normal LV systolic function. Mild concentric LVH. The ejection fraction is 60-65% Mild mitral and tricuspid regurgitation Small pericardial effusion Previewed by: Dr. Amanuel Prince MD (Electronically Signed) Final Date: 06 June 2023 11:39
[2023-06-06 14:13] LABS: African American GFR (CKD) 54 (>60 ml/min/1.73 sqM); Anion Gap 11 mmol/L; Blood Urea Nitrogen 25 mg/dL (9-20); Calcium 8.9 mg/dL (8.4-10.2); Carbon Dioxide 17 mmol/L (22-30); Chloride 105 mmol/L (98-107); Glucose 111 mg/dL (74-99); Non-African American GFR(CKD) 47 (>60 ml/min/1.73 sqM); Sodium 133 mmol/L (137-145)
[2023-06-06 14:17] LABS: Potassium 4.6 mmol/L (3.5-5.1)
[2023-06-06] MEDS: FAMOTIDINE 20 MG TAB PO SCH (22:15)
[2023-06-07] MEDS: ASPIRIN 81 MG PO SCH (08:33)
[2023-06-07] MEDS: TAMSULOSIN 0.4 MG CAP.ER.24H PO SCH (08:33)
[2023-06-07] MEDS: HEPARIN SODIUM,PORCINE 5,000 UNIT/ML 1 ML VIAL SQ SCH (08:33)
[2023-06-07] MEDS: QUEtiapine 100 MG TAB PO SCH (08:33)
[2023-06-07] MEDS: CIPRODEX RIGHT EAR SCH (08:34)
[2023-06-07] MEDS: CIPROFLOXACIN HCL 500 MG PO SCH (08:35)
[2023-06-07 08:39] VITALS: RESP 16; TEMP 98.7
[2023-06-07 11:56] VITALS: BP 111/70; PULSE 93
== END 2023-06-07 12:58 | disposition home or self-care (01) | DRG 682 ==
LOC: EC 22:53 → 3SCARD 06-04 03:44
PROVIDERS: ADMIT Family Medicine; ATTEND Family Medicine
DX: N17.9 Acute kidney failure, unspecified (principal); I21.A1 Myocardial infarction type 2; K52.1 Toxic gastroenteritis and colitis; E87.1 Hypo-osmolality and hyponatremia; E87.29 Other acidosis; R53.1 Weakness; T36.95XA Adverse effect of unspecified systemic antibiotic, initial encounter; E86.0 Dehydration; E86.1 Hypovolemia; E87.8 Other disorders of electrolyte and fluid balance, not elsewhere classified; E78.5 Hyperlipidemia, unspecified; M51.36 Other intervertebral disc degeneration, lumbar region; I25.10 Atherosclerotic heart disease of native coronary artery without angina pectoris; K21.9 Gastro-esophageal reflux disease without esophagitis; N18.4 Chronic kidney disease, stage 4 (severe); X58.XXXA Exposure to other specified factors, initial encounter; N40.0 Benign prostatic hyperplasia without lower urinary tract symptoms; R29.6 Repeated falls; Z79.82 Long term (current) use of aspirin; Z79.899 Other long term (current) drug therapy; Z82.49 Family history of ischemic heart disease and other diseases of the circulatory system; Z85.038 Personal history of other malignant neoplasm of large intestine; Z85.46 Personal history of malignant neoplasm of prostate; Z87.891 Personal history of nicotine dependence; Z95.1 Presence of aortocoronary bypass graft; Z87.19 Personal history of other diseases of the digestive system; Z90.49 Acquired absence of other specified parts of digestive tract
CPT/HCPCS: 36415; 71045; 72100; 72170; 80048; 80053; 81003; 82550; 82553; 83605; 83735; 83880; 84100; 84484; 85025; 85610; 85730; 93005; 93306; 94760

== ENCOUNTER → 2023-11-07 | Outpatient (CLI) | payer MEDICARE, BC ==
[2023-11-08 02:33] LABS: ALT 12 U/L (10-49); AST 21 U/L (14-35); Albumin 4.7 g/dL (3.8-4.9); Albumin/Globulin Ratio 1.62 Ratio (1.60-3.17); Alkaline Phosphatase 92 U/L (41-126); BUN/Creat Ratio 13.93 Ratio (12.00-20.00); Blood Urea Nitrogen 20.9 mg/dL (9.0-27.0); Calcium 9.6 mg/dL (8.7-10.3); Chloride 103 mmol/L (96-109); Chol/HDL Ratio 4.28 Ratio; Globulin 2.9 g/dL (1.6-3.3); Glucose 134 mg/dL (70-110); LDL Cholesterol,Calculated 151.7 mg/dL (0.0-131.0); Potassium 5.4 mmol/L (3.5-5.5); Sodium 137 mmol/L (135-145); Total Bilirubin 0.4 mg/dL (0.3-1.2); Total Protein 7.6 g/dL (6.2-8.2)
[2023-11-08 02:44] LABS: Prostate Specific Antigen <0.01 ng/mL (0.000-6.500)
[2023-11-08 03:28] LABS: HCT 32.7 % (39.6-50.0); HGB 10.6 g/dL (13.0-17.0); MCH 31.2 pg (27.0-32.0); MCHC 32.4 g/dL (32.0-37.0); MCV 96.2 FL (80.0-97.0); Mean Platelet Volume 10.4 FL (9.5-12.2); NRBC Per 100 WBC 0 X 10*3/uL (0.00-0.01); Platelet Count 335 X 10*3/uL (140-440); RDW 12.9 % (11.5-14.5); WBC 6.26 X 10*3/uL (4.50-10.00)
== END | disposition home or self-care (01) ==
LOC: LABWHC1 16:16
PROVIDERS: ATTEND Family Medicine
DX: I25.10 Atherosclerotic heart disease of native coronary artery without angina pectoris (principal)
CPT/HCPCS: 36415; 80053; 80061; 84153; 84443; 85027

== ENCOUNTER 2023-11-17 22:15 | Inpatient (IN) | payer MEDICARE, BC ==
[2023-11-17 22:41] LABS: Glucose,Whole Blood 165 mg/dL (70-110)
--- NOTE | 2023-11-17 22:56 | ED ---
General Adult HPI - General Chief complaint: Neuro Symptoms/Deficit Stated complaint: Stroke Time Seen by Provider: 11/17/23 22:20 Source: patient, EMS Mode of arrival: EMS Limitations: no limitations - History of Present Illness Initial comments: 83-year-old male with past medical history of coronary artery bypass surgery who presents the emergency department with left-sided facial droop and right lower extremity weakness. He states his symptoms started at 3 PM. He went to lunch with a friend. The friend reports that he was his normal self entering into the restaurant. When they were leaving the patient had notable facial droop and some difficulty ambulating. He dropped him off at home. The patient then ended up calling his friend this evening as he was reporting that his symptoms were worse and he was unable to ambulate on his own. The patient denies any falls. No history of stroke. The patient does not take any blood thinners. No headache or visual changes. Patient does have some slurred speech. 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, precipitating or modifying factors - Related Data Home Medications Medication Instructions Recorded Confirmed Tamsulosin HCl [Flomax] 0.4 mg PO HS 09/11/22 11/18/23 Octreotide Acetate,Mi-Spheres 10 mg IM Q30D 06/04/23 11/18/23 [SandoSTATIN LAR [place]] Ciprofloxacin-Dexameth [Ciprodex 2 drops BOTH EARS BID 11/18/23 11/18/23 Otic Susp] Diphenoxylate HCl/Atropine 2 tab PO Q6H PRN 11/18/23 11/18/23 [Lomotil 2.5-0.025 mg Tablet] Losartan [Cozaar] 25 mg PO DAILY 11/18/23 11/18/23 Meclizine [Antivert] 25 mg PO BID PRN 11/18/23 11/18/23 Metoclopramide HCl [Reglan] 5 mg PO BID PRN 11/18/23 11/18/23 QUEtiapine [SEROquel] 400 mg PO HS 11/18/23 11/18/23 buPROPion XL [Wellbutrin XL] 150 mg PO DAILY 11/18/23 11/18/23 rOPINIRole HCL [Requip] 1 mg PO HS 11/18/23 11/18/23 Previous Rx's Medication Instructions Recorded Aspirin 81 mg PO DAILY #21 tab 11/20/23 Atorvastatin [Lipitor] 40 mg PO DAILY 30 Days #30 tab 11/20/23 Clopidogrel [Plavix] 75 mg PO DAILY 30 Days #30 tab 11/20/23 Allergies Allergy/AdvReac Type Severity Reaction Status Date / Time No Known Allergies Allergy Verified 11/18/23 06:55 Review of Systems ROS Statement: Those systems with pertinent positive or pertinent negative responses have been documented in the HPI. ROS Other: All systems not noted in ROS Statement are negative. 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 Past Anesthesia/Blood Transfusion Reactions: No Reported Reaction Past Psychological History: No Psychological Hx Reported Smoking Status: Former smoker, Light tobacco smoker Past Alcohol Use History: None Reported Past Drug Use History: None Reported - Past Family History Father Family Medical History: Myocardial Infarction (IA) Additional Family Medical History / Comment(s): Pt did not know his father but they were told he of a IA at the age of 42 yrs. Mother Family Medical History: Vascular Disorder Additional Family Medical History / Comment(s): Mother at age 68yrs, pt was told possible d/t ruptured aneurysm in her neck. General Exam Limitations: no limitations General appearance: alert, in no apparent distress Head exam: Present: atraumatic, normocephalic, other (Notable left lower facial droop. Flattening of the nasolabial fold) Eye exam: Present: normal appearance, PERRL, EOMI. Absent: scleral icterus, conjunctival injection, periorbital swelling ENT exam: Present: normal exam, mucous membranes moist Neck exam: Present: normal inspection. Absent: tenderness, meningismus, lymphadenopathy Respiratory exam: Present: normal lung sounds bilaterally. Absent: respiratory distress, wheezes, rales, rhonchi, stridor Cardiovascular Exam: Present: regular rate, normal rhythm, normal heart sounds. Absent: systolic murmur, diastolic murmur, rubs, gallop, clicks GI/Abdominal exam: Present: soft, normal bowel sounds. Absent: distended, tenderness, guarding, rebound, rigid Extremities exam: Present: full ROM, normal capillary refill, other (Patient has weakness in the right lower extremity. There is no movement against gravity). Absent: tenderness, pedal edema, joint swelling, calf tenderness Back exam: Present: normal inspection Neurological exam: Present: alert, oriented X3, CN II-XII intact Psychiatric exam: Present: normal affect, normal mood Skin exam: Present: warm, dry, intact, normal color. Absent: rash Course Vital Signs 11/17/23 11/17/23 11/17/23 22:19 23:08 23:15 Temperature 97.3 F L Pulse Rate 90 87 82 Pulse Rate [ Pulse Oximetery ] Respiratory 18 24 18 Rate Blood Pressure 118/75 152/84 150/84 Blood Pressure [Left Arm] Blood Pressure [Right Arm] O2 Sat by Pulse 100 98 98 Oximetry 11/17/23 11/18/23 11/18/23 23:45 00:15 01:00 Temperature Pulse Rate 77 75 80 Pulse Rate [ Pulse Oximetery ] Respiratory 18 16 14 Rate Blood Pressure 143/84 124/74 114/68 Blood Pressure [Left Arm] Blood Pressure [Right Arm] O2 Sat by Pulse 98 97 97 Oximetry 11/18/23 11/18/23 11/18/23 02: 04:16 06:43 Temperature Pulse Rate 79 73 79 Pulse Rate [ Pulse Oximetery ] Respiratory 16 14 16 Rate Blood Pressure 150/90 150/84 161/84 Blood Pressure [Left Arm] Blood Pressure [Right Arm] O2 Sat by Pulse 100 98 Oximetry 11/18/23 11/18/2324 08:00 09:09 12:30 Temperature 97.8 F Pulse Rate Pulse Rate [ 81 81 82 Pulse Oximetery ] Respiratory 18 18 18 Rate Blood Pressure Blood Pressure 181/111 [Left Arm] Blood Pressure 151/89 [Right Arm] O2 Sat by Pulse 99 99 Oximetry Medical Decision Making - Medical Decision Making Was pt. sent in by a medical professional or institution (, PA, IMPLANT COORDINATOR, urgent c are, hospital, or skilled nursing...) When possible be specific @ -No Did you speak to anyone other than the patient for history (EMS, parent, family, police, friend...)? What history was obtained from this source @ -Spoke with EMS Did you review nursing and triage notes (agree or disagree)? Why? @ -I reviewed and agree with nursing and triage notes Were old charts reviewed (outside hosp., previous admission, EMS record, old EKG, old radiological studies, urgent care reports/EKG's, skilled nursing records)? Report findings @ -No old charts were reviewed Differential Diagnosis (chest pain, altered mental status, abdominal pain women, abdominal pain men, vaginal bleeding, weakness, fever, dyspnea, syncope, headache, dizziness, GI bleed, back pain, seizure, CVA, palpatations, mental health, musculoskeletal)? @ -Differential CVA Ischemic stroke, hemorrhagic stroke, brain tumor, atypical migraine, Wernicke's encephalopathy, seizure, multiple sclerosis, meningitis, encephalitis, hypoglyc emia, Guillain-Parikh, electrolytes disturbance, myasthenia gravis.... This is not meant to be an all-inclusive list EKG interpreted by me (3pts min.). @ -Yes and demonstrates sinus rhythm with a rate of 87. IN interval 204. QRS 94. QTc 423. No acute ST segment elevations. Inverted T wave V2 X-rays interpreted by me (1pt min.). @ -Yes and demonstrates no acute process CT interpreted by me (1pt min.). @ -Yes and demonstrates no acute process U/S interpreted by me (1pt. min.). @ -None done What testing was considered but not performed or refused? (CT, X-rays, U/S, labs)? Why? @ -None What meds were considered but not given or refused? Why? @ -Alteplase was considered however patient is outside the window Did you discuss the management of the patient with other professionals (adrien rodriges i.e. , PA, IMPLANT COORDINATOR, lab, RT, psych nurse, social worker assistant, full service supervisor, teacher, special weapons and tactics officer, community case manager)? Give summary @ -Spoke with Dr. Pate, the neurointensivist. Also spoke with Tulio from [facility] Was smoking cessation discussed for >3mins.? @ -No Was critical care preformed (if so, how long)? @ -Yes, 35 minutes for code stroke activation Were there social determinants of health that impacted care today? How? (Homelessness, low income, unemployed, alcoholism, drug addiction, transpo rtation, low edu. Level, literacy, decrease access to med. care, [facility], rehab)? @ -No Was there de-escalation of care discussed even if they declined (Discuss DNR or withdrawal of care, Hospice)? DNR status @ -No What co-morbidities impacted this encounter? (DM, HTN, Smoking, COPD, CAD, Cancer, CVA, ARF, Chemo, Hep., AIDS, mental health diagnosis, sleep apnea, morbid obesity)? @ -None Was patient admitted / discharged? Hospital course, mention meds given and route, prescriptions, significant lab abnormalities, going to OR and other pertinent info. @ -Upon arrival patient was placed into trauma 2. Thorough history and physical exam was performed. NIH is assessed. Last known well was 3 PM. Patient is outside of the tenecteplase window. He is sent over for CT and CTA. Discussed the results with Dr. pate. Medical management at this time as there is no large vessel occlusion. Patient was given an aspirin and a statin. He was admitted to [facility] with neurology to consult Undiagnosed new problem with uncertain prognosis? @ -Yes Drug Therapy requiring intensive monitoring for toxicity (Heparin, Nitro, Insulin, Cardizem)? @ -No Were any procedures done? @ -No Diagnosis/symptom? @ -Acute left-sided facial droop, acute right lower extremity weakness, suspected CVA Acute, or Chronic, or Acute on Chronic? @ -Acute Uncomplicated (without systemic symptoms) or Complicated (systemic symptoms)? @ -Complicated Side effects of treatment? @ -No Exacerbation, Progression, or Severe Exacerbation? @ -No Poses a threat to life or bodily function? How? (Chest pain, USA, IA, pneumonia, PE, COPD, DKA, ARF, appy, cholecystitis, CVA, Diverticulitis, Homicidal, Suicidal, threat to staff... and all critical care pts) @ -No - Lab Data Result diagrams: 11/19/23 08:51 11/19/23 16:42 Lab Results 11/17/23 11/17/23 11/17/23 Range/Units 22:39 22:51 22:51 WBC 7.0 (3.8-10.6) k/uL RBC 3.45 L (4.30-5.90) m/uL Hgb 11.3 L (13.0-17.5) gm/dL Hct 32.6 L (39.0-53.0) % MCV 94.7 (80.0-100.0) fL MCH 32.9 (25.0-35.0) pg MCHC 34.7 (31.0-37.0) g/dL RDW 12.6 (11.5-15.5) % Plt Count 218 (150-450) k/uL MPV 7.8 Neutrophils % 70 % Lymphocytes % 20 % Monocytes % 5 % Eosinophils % 3 % Basophils % 1 % Neutrophils # 4.9 (1.3-7.7) k/uL Lymphocytes # 1.4 (1.0-4.8) k/uL Monocytes # 0.4 (0-1.0) k/uL Eosinophils # 0.2 (0-0.7) k/uL Basophils # 0.0 (0-0.2) k/uL PT 10.9 (10.0-12.5) sec INR 1.0 (<1.2) APTT 25.0 (22.0-30.0) sec Sodium (137-145) mmol/L Potassium (3.5-5.1) mmol/L Chloride (98-107) mmol/L Carbon Dioxide (22-30) mmol/L Anion Gap mmol/L BUN (9-20) mg/dL Creatinine (0.66-1.25) mg/dL Est GFR (CKD-EPI)AfAm (>60 ml/min/1.73 sqM) Est GFR (CKD-EPI)NonAf (>60 ml/min/1.73 sqM) Glucose (74-99) mg/dL POC Glucose (mg/dL) 165 H (70-110) mg/dL POC Glu Manager Transit ID Jenna Ruiz Calcium (8.4-10.2) mg/dL Total Bilirubin (0.2-1.3) mg/dL AST (17-59) U/L ALT (4-49) U/L Alkaline Phosphatase (38-126) U/L Creatine Kinase (55-170) U/L Troponin I (0.000-0.034) ng/mL Total Protein (6.3-8.2) g/dL Albumin (3.5-5.0) g/dL 11/17/23 11/17/23 Range/Units 22:51 22:51 WBC (3.8-10.6) k/uL RBC (4.30-5.90) m/uL Hgb (13.0-17.5) gm/dL Hct (39.0-53.0) % MCV (80.0-100.0) fL MCH (25.0-35.0) pg MCHC (31.0-37.0) g/dL RDW (11.5-15.5) % Plt Count (150-450) k/uL MPV Neutrophils % % Lymphocytes % % Monocytes % % Eosinophils % % Basophils % % Neutrophils # (1.3-7.7) k/uL Lymphocytes # (1.0-4.8) k/uL Monocytes # (0-1.0) k/uL Eosinophils # (0-0.7) k/uL Basophils # (0-0.2) k/uL PT (10.0-12.5) sec INR (<1.2) APTT (22.0-30.0) sec Sodium 136 L (137-145) mmol/L Potassium 4.9 (3.5-5.1) mmol/L Chloride 108 H (98-107) mmol/L Carbon Dioxide 15 L (22-30) mmol/L Anion Gap 13 mmol/L BUN 30 H (9-20) mg/dL Creatinine 1.89 H (0.66-1.25) mg/dL Est GFR (CKD-EPI)AfAm 37 (>60 ml/min/1.73 sqM) Est GFR (CKD-EPI)NonAf 32 (>60 ml/min/1.73 sqM) Glucose 137 H (74-99) mg/dL POC Glucose (mg/dL) (70-110) mg/dL POC Glu Manager Transit ID Calcium 9.3 (8.4-10.2) mg/dL Total Bilirubin 0.4 (0.2-1.3) mg/dL AST 21 (17-59) U/L ALT 11 (4-49) U/L Alkaline Phosphatase 72 (38-126) U/L Creatine Kinase 69 (55-170) U/L Troponin I <0.012 (0.000-0.034) ng/mL Total Protein 7.5 (6.3-8.2) g/dL Albumin 4.6 (3.5-5.0) g/dL Disposition Clinical Impression: Facial droop, Cerebrovascular accident (CVA) Disposition: ADMITTED IP TO THIS [facility] Condition: Stable Is patient prescribed a controlled substance at d/c from ED?: No Time of Disposition: 01:03 Decision to Admit Reason: Admit from EC Decision Date: 11/18/23 Decision Time: 01:03
--- NOTE | 2023-11-17 23:21 | CT ---
EXAM: CT Head Without Intravenous Contrast CLINICAL HISTORY: ITS.REASON CT Reason: Neuro deficit, acute, stroke suspected TECHNIQUE: Axial computed tomography images of the head/brain without intravenous contrast. CTDI is 54.6 mGy and DLP is 1409 mGy-cm. This CT exam was performed using one or more of the following dose reduction techniques: automated exposure control, adjustment of the mA and/or kV according to patient size, and/or use of iterative reconstruction technique. COMPARISON: MRI brain 03/18/2023. CT head 03/16/2023. FINDINGS: Brain: Global parenchymal volume loss with chronic microvascular ischemic changes. No hemorrhage. Ventricles: Unremarkable. No ventriculomegaly. Bones/joints: Unremarkable. No acute fracture. Soft tissues: Unremarkable. Sinuses: Unremarkable as visualized. Mastoid air cells: Left mastoid effusion. Orbits: Bilateral lens replacement. IMPRESSION: 1. No intracranial hemorrhage or evidence of large territorial infarction. 2. Global parenchymal volume loss with chronic microvascular ischemic changes.
--- NOTE | 2023-11-17 23:27 | CT ---
EXAM: CT Angiography Head With Intravenous Contrast CLINICAL HISTORY: ITS.REASON CT Reason: Neuro deficit, acute, stroke suspected TECHNIQUE: Axial computed tomographic angiography images of the head with intravenous contrast. CTDI is 8.6 mGy and DLP is 414.7 mGy-cm. This CT exam was performed using one or more of the following dose reduction techniques: automated exposure control, adjustment of the mA and/or kV according to patient size, and/or use of iterative reconstruction technique. MIP reconstructed images were created and reviewed. COMPARISON: No relevant prior studies available. FINDINGS: Right internal carotid artery: Atherosclerotic calcifications within the right internal carotid artery causing less than 50% stenosis. No aneurysm. Right anterior cerebral artery: Unremarkable. No occlusion or significant stenosis. No aneurysm. Right middle cerebral artery: Unremarkable. No occlusion or significant stenosis. No aneurysm. Right posterior cerebral artery: Unremarkable. No occlusion or significant stenosis. No aneurysm. Right vertebral artery: Unremarkable as visualized. Left internal carotid artery: Atherosclerotic calcifications within the left internal carotid artery causing less than 50% stenosis. No aneurysm. Left anterior cerebral artery: Unremarkable. No occlusion or significant stenosis. No aneurysm. Left middle cerebral artery: Unremarkable. No occlusion or significant stenosis. No aneurysm. Left posterior cerebral artery: Unremarkable. No occlusion or significant stenosis. No aneurysm. Left vertebral artery: Atherosclerotic calcifications within the left vertebral artery causing 50% stenosis. Basilar artery: Unremarkable. No occlusion or significant stenosis. No aneurysm. IMPRESSION: No large vessel occlusion or flow-limiting stenosis. EXAM: CT Angiography Neck With Intravenous Contrast CLINICAL HISTORY: ITS.REASON CT Reason: Neuro deficit, acute, stroke suspected TECHNIQUE: Routine carotid CT angiography protocol was performed with intravenous contrast. NASCET criteria using the distal ICAs for comparison were used for evaluation of stenoses. CTDI is 50.4 mGy and DLP is 50.4 mGy-cm. This CT exam was performed using one or more of the following dose reduction techniques: automated exposure control, adjustment of the mA and/or kV according to patient size, and/or use of iterative reconstruction technique. MIP reconstructed images were created and reviewed. COMPARISON: None. FINDINGS: VASCULATURE: Right common carotid artery: Unremarkable. No occlusion or significant stenosis. No dissection. Right internal carotid artery: Mild [id number] atherosclerotic calcifications at the right carotid bulb. Right vertebral artery: Unremarkable. No occlusion or significant stenosis. No dissection. Left common carotid artery: Unremarkable. No occlusion or significant stenosis. No dissection. Left internal carotid artery: Mild [id number] atherosclerotic calcifications at the left carotid bulb. Left vertebral artery: Unremarkable. No occlusion or significant stenosis. No dissection. NECK: Bones/joints: Unremarkable. No acute fracture. Soft tissues: Unremarkable. Lung apices: Clear. CAROTID STENOSIS REFERENCE USING NASCET CRITERIA: % ICA stenosis = (1 - narrowest ICA diameter/diameter of distal cervical ICA) x 100. Mild - <50% stenosis. Moderate - 50-69% stenosis. Severe - 70-94% stenosis. Near occlusion - 95-99% stenosis. Occluded - 100% stenosis. IMPRESSION: No flow limiting stenosis.
[2023-11-17 23:43] LABS: Basophils % (A) 1 %; Eosinophils # (A) 0.2 k/uL (0-0.7); Eosinophils % (A) 3 %; HCT 32.6 % (39.0-53.0); HGB 11.3 gm/dL (13.0-17.5); Lymphocytes # (A) 1.4 k/uL (1.0-4.8); Lymphocytes % (A) 20 %; MCH 32.9 pg (25.0-35.0); MCHC 34.7 g/dL (31.0-37.0); MCV 94.7 fL (80.0-100.0); Mean Platelet Volume 7.8; Monocytes # (A) 0.4 k/uL (0-1.0); Monocytes % (A) 5 %; Neutrophils # (A) 4.9 k/uL (1.3-7.7); Neutrophils % (A) 70 %; Platelet Count 218 k/uL (150-450); RBC 3.45 m/uL (4.30-5.90); RDW 12.6 % (11.5-15.5)
[2023-11-17 23:53] LABS: ALT 11 U/L (4-49); AST 21 U/L (17-59); African American GFR (CKD) 37 (>60 ml/min/1.73 sqM); Albumin 4.6 g/dL (3.5-5.0); Alkaline Phosphatase 72 U/L (38-126); Anion Gap 13 mmol/L; Blood Urea Nitrogen 30 mg/dL (9-20); Calcium 9.3 mg/dL (8.4-10.2); Carbon Dioxide 15 mmol/L (22-30); Chloride 108 mmol/L (98-107); Creatine Kinase 69 U/L (55-170); Glucose 137 mg/dL (74-99); Non-African American GFR(CKD) 32 (>60 ml/min/1.73 sqM); Potassium 4.9 mmol/L (3.5-5.1); Prothrombin Time 10.9 sec (10.0-12.5); Sodium 136 mmol/L (137-145); Total Bilirubin 0.4 mg/dL (0.2-1.3); Total Protein 7.5 g/dL (6.3-8.2)
--- NOTE | 2023-11-18 01:01 | XR ---
EXAM: XR Chest, 1 View CLINICAL HISTORY: ITS.REASON XR Reason: altered mental status TECHNIQUE: Frontal view of the chest. COMPARISON: 06/04/2023 FINDINGS: Lungs: No consolidation. No overt edema. Pleural space: No pleural effusion. No pneumothorax. Heart: Status post CABG. No cardiomegaly. IMPRESSION: No acute findings in the chest.
[2023-11-18] MEDS ORDERED: NALOXONE 0.4 MG/ML 1 ML VIAL IV PRN ×2 (01:04→09:45)
[2023-11-18] MEDS: ASPIRIN 325 MG TAB PO STA (02:04)
[2023-11-18] MEDS: ATORVASTATIN 40 MG TAB PO SCH (09:26)
[2023-11-18] MEDS ORDERED: MAG HYDROX/AL HYDROX/SIMETH 30 ML CUP PO PRN (09:45)
[2023-11-18] MEDS ORDERED: ONDANSETRON 4 MG/2 ML VIAL IVP PRN (09:45)
[2023-11-18] MEDS ORDERED: ACETAMINOPHEN TAB 325 MG TAB PO PRN (09:45)
[2023-11-18] MEDS ORDERED: MECLIZINE 25 MG TAB PO PRN (10:49)
--- NOTE | 2023-11-18 10:49 | P.HPIM ---
History of Present Illness H&P Date: 11/18/23 History of present illness; patient is a 83-year-old gentleman past medical significant for coronary disease status post CABG presented to ER for acute onset of left-sided facial droop and weakness of right leg. Patient said he was all right yesterday afternoon around 3 PM after enjoying lunch with his friend he noticed that he was having hard time ambulating, there was also facial droop. Patient initially did not pay much noticed to it and went home but later ended up calling his friend as his symptoms were getting worse and he was having inability to walk on its own. Patient was also noticing facial droop. There was no complaint of chest pain or shortness of breath. No complaint of pal pitation. Because of the symptoms, patient came to the ER Initial lab work done in the ER showed WBC 7, hemoglobin 9.3, platelet count 218, sodium 130, potassium 4.9, BUN 30, creatinine 1.89, glucose 137 EKG done in the ER showed heart rate of 87, no ST segment elevation or depression seen, no T-wave inversions seen. Chest x-ray done in the ER showed no acute findings CT head done showed no acute intracranial process, no intracranial hemorrhage CTA head and neck done showed no significant stenosis, aneurysm or thrombus in the intracranial circulation Patient admitted to internal medicine service. Patient symptoms improved while in the ER. REVIEW OF SYSTEMS: CONSTITUTIONAL: No fever, no malaise, no fatigue. HEENT: No recent visual problems or hearing problems. Denied any sore throat. CARDIOVASCULAR: No chest pain, orthopnea, PND, no palpitations, no syncope. PULMONARY: No shortness of breath, no cough, no hemoptysis. GASTROINTESTINAL: No diarrhea, no nausea, no vomiting, no abdominal pain. NEUROLOGICAL: As mentioned above HEMATOLOGICAL: Denies any bleeding or petechiae. GENITOURINARY: Denies any burning micturition, frequency, or urgency. MUSCULOSKELETAL/RHEUMATOLOGICAL: Denies any joint pain, swelling, or any muscle pain. ENDOCRINE: Denies any polyuria or polydipsia. The rest of the 14-point review of systems is negative. PHYSICAL EXAMINATION: GENERAL: The patient is alert and oriented x3, not in any acute distress. Well developed, well nourished. HEENT: Pupils are round and equally reacting to light. EOMI. No scleral icterus. No conjunctival pallor. Normocephalic, atraumatic. No pharyngeal erythema. No thyromegaly. CARDIOVASCULAR: S1 and S2 present. No murmurs, rubs, or gallops. PULMONARY: Chest is clear to auscultation, no wheezing or crackles. ABDOMEN: Soft, nontender, nondistended, normoactive bowel sounds. No palpable organomegaly. MUSCULOSKELETAL: No joint swelling or deformity. EXTREMITIES: No cyanosis, clubbing, or pedal edema. NEUROLOGICAL: Alert awake and x 3, muscle strength 5 by 5 in all extremities, no facial droop seen. Cranial nerves II to XII intact SKIN: No rashes. Assessment and plan Acute CVA Hypertension Acute kidney injury Hyperlipidemia Monitor vital signs Monitor CBC Monitor CMP Continue telemetry monitoring Continue neurochecks MRI brain ordered 2D echo ordered Continue aspirin, Lipitor Neurology consulted PT OT, speech consulted Labs and medication were reviewed.. Continue same treatment. Continue with symptomatic treatment. Resume home medication. Monitor labs and vitals. DVT and GI prophylaxis. Further recommendations as per clinical course of the patient Dictation was produced using [employer] dictation software. please excuse any grammatical, word or spelling errors. 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 Past Anesthesia/Blood Transfusion Reactions: No Reported Reaction Past Psychological History: No Psychological Hx Reported Additional Psychological History / Comment(s): Pt resides in a trailer in [place]. Smoking Status: Former smoker, Light tobacco smoker Past Alcohol Use History: None Reported Additional Past Alcohol Use History / Comment(s): Patient reports that he would smoke cigars occasionally but none for many years. Past Drug Use History: None Reported - Past Family History Father Family Medical History: Myocardial Infarction ([place]) Additional Family Medical History / Comment(s): Pt did not know his father but they were told he of a IN at the age of 42 yrs. Mother Family Medical History: Vascular Disorder Additional Family Medical History / Comment(s): Mother at age 68yrs, pt was told possible d/t ruptured aneurysm in her neck. Medications and Allergies Home Medications Medication Instructions Recorded Confirmed Type Tamsulosin HCl [Flomax] 0.4 mg PO HS 09/11/22 11/18/23 History Octreotide Acetate,Mi-Spheres 10 mg IM Q30D 06/04/23 11/18/23 History [SandoSTATIN LAR Depot] Octreotide Acetate,Mi-Spheres 30 mg IM Q30D 06/04/23 11/18/23 History [SandoSTATIN LAR [place]] Aspirin 81 mg PO DAILY #30 tab 06/06/23 11/18/23 Rx Atorvastatin [Lipitor] 10 mg PO HS 11/18/23 11/18/23 History Ciprofloxacin-Dexameth [Ciprodex 2 drops BOTH EARS BID 11/18/23 11/18/23 History Otic Susp] Diphenoxylate HCl/Atropine 2 tab PO Q6H PRN 11/18/23 11/18/23 History [Lomotil 2.5-0.025 mg Tablet] Losartan [Cozaar] 25 mg PO DAILY 11/18/23 11/18/23 History Meclizine [Antivert] 25 mg PO BID PRN 11/18/23 11/18/23 History Metoclopramide HCl [Reglan] 5 mg PO BID PRN 11/18/23 11/18/23 History QUEtiapine [SEROquel] 400 mg PO HS 11/18/23 11/18/23 History buPROPion XL [Wellbutrin XL] 150 mg PO DAILY 11/18/23 11/18/23 History rOPINIRole HCL [Requip] 1 mg PO HS 11/18/23 11/18/23 History Allergies Allergy/AdvReac Type Severity Reaction Status Date / Time No Known Allergies Allergy Verified 11/18/23 06:55 Physical Exam Vitals: Vital Signs Temp Pulse Pulse Resp BP BP Pulse Ox 11/18/23 09:09 97.8 F 81 18 151/89 99 11/18/23 06:43 79 16 161/84 98 11/18/23 04:16 73 14 150/84 100 11/18/23 02:24 79 16 150/90 11/18/23 01:00 80 14 114/68 97 11/18/23 00:15 75 16 124/74 97 11/17/23 23:45 77 18 143/84 98 11/17/23 23:15 82 18 150/84 98 11/17/23 23:08 97.3 F L 87 24 152/84 98 11/17/23 22:19 90 18 118/75 100 Intake and Output 11/17/23 11/18/23 11/18/23 22:59 06:59 14:59 Other: Weight 71.1 kg 71.1 kg Results CBC & Chem 7: 11/17/23 22:51 11/17/23 22:51 Labs: Abnormal Lab Results - Last 24 Hours (Table) 11/17/23 11/17/23 11/17/23 Range/Units 22:39 22:51 22:51 RBC 3.45 L (4.30-5.90) m/uL Hgb 11.3 L (13.0-17.5) gm/dL Hct 32.6 L (39.0-53.0) % Sodium 136 L (137-145) mmol/L Chloride 108 H (98-107) mmol/L Carbon Dioxide 15 L (22-30) mmol/L BUN 30 H (9-20) mg/dL Creatinine 1.89 H (0.66-1.25) mg/dL Glucose 137 H (74-99) mg/dL POC Glucose (mg/dL) 165 H (70-110) mg/dL Thrombosis Risk Factor Assmnt - Choose All That Apply Other Risk Factors: Yes Each Risk Factor Represents 3 Points: Age 75 years or older Thrombosis Risk Factor Assessment Total Risk Factor Score: 3 Thrombosis Risk Factor Assessment Level: Moderate Risk
--- NOTE | 2023-11-18 12:56 | CA ---
Transthoracic Echo Report Name: Reinier Bajwa Age: 83 Gender: M : 1940 Exam Date: 11/18/2023 12:33 Exam Location: [place] [facility] Ht (in): 67 Wt (lb): 156 Ordering Physician: Carlos Mandujano MD Attending/Referring Phys: Customer Marketing Assistant Celestine Lira RD Procedure CPT: Indications: Slurred speech, CVA Cardiac Hx: Technical Quality: Technically difficult study Contrast 1: Definity Total Dose (mL): 2 Contrast 2: Total Dose (mL): MEASUREMENTS (Male / Female) Normal Values 2D ECHO LV Diastolic Diameter PLAX 4.8 cm 4.2 - 5.9 / 3.9 - 5.3 cm LV Systolic Diameter PLAX 3.3 cm IVS Diastolic Thickness 0.8 cm 0.6 - 1.0 / 0.6 - 0.9 cm LVPW Diastolic Thickness 1.1 cm 0.6 - 1.0 / 0.6 - 0.9 cm LV Relative Wall Thickness 0.4 RV Internal Dim ED PLAX 3.2 cm LVOT Diameter 2.3 cm Aortic Root Diameter 3.0 cm LA Systolic Diameter LX 2.0 cm 3.0 - 4.0 / 2.7 - 3.8 cm LV Diastolic Volume MOD 4C 30.6 cm??? LV Systolic Volume MOD 4C 10.1 cm??? LV Ejection Fraction MOD 4C 67.1 % LV Diastolic Length 4C 6.4 cm LV Systolic Length 4C 6.2 cm DOPPLER AV Peak Velocity 100.7 cm/s AV Peak Gradient 4.1 mmHg AV Mean Velocity 70.5 cm/s AV Mean Gradient 2.3 mmHg AV Velocity Time Integral 19.7 cm LVOT Peak Velocity 80.1 cm/s LVOT Peak Gradient 2.6 mmHg LVOT Velocity Time Integral 15.1 cm LVOT Stroke Volume 63.0 cm??? LVOT Stroke Volume Index 34.6 ml/m??? AV Area Cont Eq vti 3.2 cm??? AV Area Cont Eq pk 3.3 cm??? MV Peak Velocity 111.8 cm/s MV Peak Gradient 5.0 mmHg MV Mean Velocity 56.0 cm/s MV Mean Gradient 1.5 mmHg MV Velocity Time Integral 26.7 cm Mitral E Point Velocity 55.7 cm/s Mitral A Point Velocity 111.8 cm/s Mitral E to A Ratio 0.5 MV Deceleration Time 303.8 ms TR Peak Velocity 207.8 cm/s TR Peak Gradient 17.3 mmHg PV Peak Velocity 93.1 cm/s PV Peak Gradient 3.5 mmHg FINDINGS Left Ventricle Normal LV size. Left ventricular ejection fraction is estimated at 55-60 %.Normal left ventricular systolic function with no obvious regional wall motion abnormalities. Right Ventricle Normal right ventricular size. Right Atrium Normal right atrial size. Left Atrium Normal left atrial size. Mitral Valve Structurally normal mitral valve. No mitral regurgitation. No mitral stenosis. Aortic Valve Grossly normal. No aortic valve stenosis or regurgitation. Tricuspid Valve Structurally normal tricuspid valve. Trace TR. Pulmonic Valve Pulmonic valve not well visualized. No pulmonic regurgitation. Pericardium Not well visualized. Grossly normal. Aorta Normal size aortic root. CONCLUSIONS Technically difficult study. Definity ECHO contrast used for improved visualization of the endocardial borders (inadequate visualization of two or more contiguous segments). Normal left ventricle size and systolic function Limited Doppler study with trace tricuspid regurgitation Previewed by: Dr. Kristy Hong MD (Electronically Signed) Final Date: 18 November 2023 12:55
--- NOTE | 2023-11-18 13:34 | MR ---
EXAMINATION TYPE: MR brain wo con DATE OF EXAM: 11/18/2023 1:30 PM COMPARISON: NONE HISTORY: Facial droop, rt sided weakness FINDINGS: The ventricles, basal cisterns and sulci overlying the cerebral convexities are mildly enlarged. There is evidence of mild to moderate periventricular white matter ischemic demyelination. Remote deep white matter insults are also noted. No acute edema is seen on diffusion weighted imaging. There is no evidence for midline shift or mass effect. Acute intracranial hemorrhage or extra-axial collection is not evident. The paranasal sinuses and mastoid air cells are well-aerated. IMPRESSION: Age-related atrophic and chronic small vessel ischemic change. No acute intracranial process at this time.
--- NOTE | 2023-11-18 17:03 | P.CNNES ---
History of Present Illness Consult date: 11/18/23 Requesting physician: Maya Carrion Reason for Consult: left sided facial droop,suspected cva History of Present Illness: Patient is a 83-year-old left-handed male came to the hospital by ambulance yesterday at 10:15 PM for possible strokelike symptoms. Patient states that last month he was having episodes of lightheadedness and dizziness. He saw his primary physician, who gave him some medication twice a day. It was not working. Yesterday at 3 PM his right leg went out and he fell and then he could not get up by himself. It was like a weight. He has to crawl. He tried to grab something but could not get up. He required help. About an hour later, he noticed some facial droop, but he could still feel it on the left side. He was brought to the hospital by EMS. As per EMS flowsheet, when they arrived, found patient sitting in the chair, alert and orient x 4 and conversant. Patient mentioned that earlier today he became weak and had difficulty walking, and it has progressed to the point that he is unable to get up or walk. He states that he has this off and on for the past couple weeks and has not sought treatment for it. He states it started about 3 PM today. He was able to walk with assistance. Patient was noted to have left-sided facial droop and dysphasia, which was apparently new for the patient. Patient's blood pressure was 104/67, pulse rate 97, respiration 15, saturation 98%, blood sugar 178. Blood test shows normal WBC hemoglobin 11.3, platelets 218. PT PTT normal, s odium 136 potassium 4.9, BUN 30, creatinine 1.89. Hepatic panel, troponin are normal. EKG shows sinus rhythm. CT head showed no acute process. Global parenchymal volume loss with chronic microvascular ischemic changes. Chest x- ray is normal. Patient has never smoked. Does not drink alcohol. Patient does have hypertension but denies diabetes. Patient believes his right leg is back to baseline. Patient was seen by neurology team in March 2023 because he presented with leg weakness and fall. He was complaining of lower back pain. Patient has history of colon cancer. Patient was found to have hypertensive emergency patient's MRI of the brain was negative for any acute ischemic process. Trace bilateral mastoid air cell effusion. Patient was given course of antibiotics with Augment in. He was recommended to follow-up with the ENT. Patient was maintained on aspirin 81 mg and Lipitor 10 mg. Review of Systems Constitutional: Denies chills, Denies fever Eyes: denies blurred vision, denies diplopia, denies pain, denies loss of peripheral vision Ears: right: decreased hearing, deny: tinnitus Ears, nose, mouth and throat: Reports headache, Reports vertigo, Denies sore throat Cardiovascular: Reports lightheadedness, Denies chest pain, Denies shortness of breath Respiratory: Denies cough, Denies excessive sputum Gastrointestinal: Reports diarrhea (occasional), Reports nausea, Denies abdominal pain, Denies vomiting Genitourinary: Denies dysuria, Denies hematuria, Denies urge incontinence Musculoskeletal: Reports low back pain, Reports neck pain Integumentary: Denies pruritus, Denies rash Neurological: Reports as per HPI Psychiatric: Denies anxiety, Denies depression Hematologic/Lymphatic: Reports easy bruising, Denies easy bleeding Past Medical History Past Medical History: Coronary Artery Disease (CAD), Cancer, GERD/Reflux, Hyperlipidemia, Hypertension, Osteoarthritis (OA), Prostate Disorder, Syncope Additional Past Medical History / Comment(s): Syncope with FALLS, prostate cancer with radiated seed placed, colon cancer with small bowel resectio n/chronic diarrhea which has improved with medication, partial small bowel obstructions with conservative treatment/laparotomy with lysis of adhesions, ileus, 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 Past Anesthesia/Blood Transfusion Reactions: No Reported Reaction Past Psychological History: No Psychological Hx Reported Additional Psychological History / Comment(s): Pt resides in a trailer in [place]. Smoking Status: Former smoker, Light tobacco smoker Past Alcohol Use History: None Reported Additional Past Alcohol Use History / Comment(s): Patient reports that he would smoke cigars occasionally but none for many years. Past Drug Use History: None Reported - Past Family History Father Family Medical History: Myocardial Infarction (HI) Additional Family Medical History / Comment(s): Pt did not know his father but they were told he of a HI at the age of 42 yrs. Mother Family Medical History: Vascular Disorder Additional Family Medical History / Comment(s): Mother at age 68yrs, pt was told possible d/t ruptured aneurysm in her neck. Medications and Allergies Home Medications Medication Instructions Recorded Confirmed Type Tamsulosin HCl [Flomax] 0.4 mg PO HS 09/11/22 11/18/23 History Octreotide Acetate,Mi-Spheres 10 mg IM Q30D 06/04/23 11/18/23 History [SandoSTATIN LAR Depot] Octreotide Acetate,Mi-Spheres 30 mg IM Q30D 06/04/23 11/18/23 History [SandoSTATIN LAR [place]] Aspirin 81 mg PO DAILY #30 tab 06/06/23 11/18/23 Rx Atorvastatin [Lipitor] 10 mg PO HS 11/18/23 11/18/23 History Ciprofloxacin-Dexameth [Ciprodex 2 drops BOTH EARS BID 11/18/23 11/18/23 History Otic Susp] Diphenoxylate HCl/Atropine 2 tab PO Q6H PRN 11/18/23 11/18/23 History [Lomotil 2.5-0.025 mg Tablet] Losartan [Cozaar] 25 mg PO DAILY 11/18/23 11/18/23 History Meclizine [Antivert] 25 mg PO BID PRN 11/18/23 11/18/23 History Metoclopramide HCl [Reglan] 5 mg PO BID PRN 11/18/23 11/18/23 History QUEtiapine [SEROquel] 400 mg PO HS 11/18/23 11/18/23 History buPROPion XL [Wellbutrin XL] 150 mg PO DAILY 11/18/23 11/18/23 History rOPINIRole HCL [Requip] 1 mg PO HS 11/18/23 11/18/23 History Allergies Allergy/AdvReac Type Severity Reaction Status Date / Time No Known Allergies Allergy Verified 11/18/23 06:55 Physical Examination - Vital Signs Vital Signs: Vital Signs Temp Pulse Pulse Resp BP BP Pulse Ox 11/18/23 09:09 97.8 F 81 18 151/89 99 11/18/23 08:00 81 18 11/18/23 06:43 79 16 161/84 98 11/18/23 04:16 73 14 150/84 100 11/18/23 02:24 79 16 150/90 11/18/23 01:00 80 14 114/68 97 11/18/23 00:15 75 16 124/74 97 11/17/23 23:45 77 18 143/84 98 11/17/23 23:15 82 18 150/84 98 11/17/23 23:08 97.3 F L 87 24 152/84 98 11/17/23 22:19 90 18 118/75 100 Intake and Output 11/17/23 11/18/23 11/18/23 22:59 06:59 14:59 Other: Voiding Method Urinal Weight 71.1 kg 71.1 kg Patient is an elderly male, very pleasant, in no acute distress. Patient is alert awake oriented to time place and person. Speech and language functions are normal. Patient can name and repeat very well. No aphasia or dysarthria. Attention, concentration and fund of knowledge is adequate. On cranial nerve examination, pupils are equal, round and reacting to light, visual laboy are full on confrontation, with no neglect on double simultaneous stimulation. Extraocular muscles are intact with no nystagmus. Patient has mild left facial asymmetry, central type, as the forehead wrinkling appears normal. Patient is also edentulous, which may be contributing to this asymmetry. On active testing, it appeared fairly symmetric. His tongue protrudes to the midline. Palatal elevation and sensation normal, hearing is severely decreased bilaterally, right worse and shoulder shrug normal, facial sensation normal. On muscle strength testing, there is no pronator drift and the strength is normal in arms and legs distally and proximally, except hip flexion, which is 5- on the right, normal on the left. Deep tendon reflexes are symmetric 1+ at the biceps, 1+ brachioradialis, 1 at the knees, and ankles and plantars are withdrawal bilaterally. Sensory to touch is equal with no neglect on double simultaneous stimulation. Cerebellar function showed no ataxia for [id number] testing. No dysdiadochokinesia. No ataxia for [id number] testing on either side. Tone and bulk of muscles normal. Gait deferred.. On general examination, there is no carotid bruit or murmur, S1-S2 audible. Chest is clear on consultation. Abdomen is soft nontender. No organomegaly, bowel sounds present. Peripheral pulses are present. No peripheral edema. Results - Laboratory Findings CBC and BMP: 11/17/23 22:51 11/17/23 22:51 Abnormal Lab Findings: Abnormal Labs 11/17/23 11/17/23 11/17/23 22:39 22:51 22:51 RBC 3.45 L Hgb 11.3 L Hct 32.6 L Sodium 136 L Chloride 108 H Carbon Dioxide 15 L BUN 30 H Creatinine 1.89 H Glucose 137 H POC Glucose (mg/dL) 165 H Assessment and Plan Assessment: * Stroke/TIA, manifesting with transient right leg weakness, left facial droop. Patient is edentulous, therefore uncertain if asymmetry is related to lack of support from dentition. 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 Normal left ventricular size and systolic function with EF 55 to 60%. Normal left atrial size. No valvular abnormalities. CTA head and neck showed: No flow-limiting stenosis, no large vessel occlusion or aneurysm reported. Fasting a.m. lipid panel with cholesterol 240, LDL 151, HDL 56, triglycerides 161. Patient was on Lipitor 10 mg at home. Dose increased to 40 mg. Hemoglobin A1c 6.5 on 10/04/2023, suggestive of borderline/mild diabetes. Recommend healthy lifestyles, dietary adjustment. Permissive hypertension for next 24-48 hours Patient takes aspirin 81 mg daily. Patient given loading dose of aspirin 325 mg in the ER. Patient has probably failed aspirin regimen. Patient will be started on Plavix 75 mg daily as well. After 21 days, may stop aspirin and continue Plavix. Neuro checks as per protocol. Telemetry monitoring rule out any arrhythmia PT, OT, speech therapy DVT prophylaxis: Heparin 5000 units subcu every 8 hours Neurology will continue to follow. Thank you for the consult.
[2023-11-18] MEDS: SODIUM CHLORIDE 0.9% 1,000 ML IV SCH (18:07)
[2023-11-18] MEDS: CLOPIDOGREL 75 MG TAB PO SCH (18:07)
[2023-11-18] MEDS: MELATONIN 3 MG TABLET PO PRN (20:45)
[2023-11-18] MEDS: TAMSULOSIN 0.4 MG CAP.ER.24H PO SCH (20:45)
[2023-11-18] MEDS: CIPROFLOXACIN-DEXAMETH 0.3-0.1% DROPS 7.5 ML BTL BOTH EARS SCH (23:27)
[2023-11-18] MEDS: QUEtiapine 400 MG TAB PO SCH (23:27)
[2023-11-19] MEDS ORDERED: ASPIRIN 325 MG TAB PO SCH (09:00)
[2023-11-19 09:35] LABS: Basophils # (A) 0.1 k/uL (0-0.2); Basophils % (A) 1 %; Eosinophils # (A) 0.4 k/uL (0-0.7); Eosinophils % (A) 6 %; HCT 31.3 % (39.0-53.0); HGB 10.2 gm/dL (13.0-17.5); Lymphocytes # (A) 1.4 k/uL (1.0-4.8); Lymphocytes % (A) 22 %; MCH 31.8 pg (25.0-35.0); MCHC 32.7 g/dL (31.0-37.0); Mean Platelet Volume 7.3; Monocytes # (A) 0.3 k/uL (0-1.0); Monocytes % (A) 6 %; Neutrophils # (A) 3.8 k/uL (1.3-7.7); Neutrophils % (A) 63 %; Platelet Count 210 k/uL (150-450); RBC 3.23 m/uL (4.30-5.90); RDW 12.7 % (11.5-15.5); WBC 6.1 k/uL (3.8-10.6)
[2023-11-19] MEDS: buPROPion XL 150 MG TAB.ER.24H PO SCH (09:49)
[2023-11-19] MEDS: ASPIRIN 81 MG PO SCH (09:49)
[2023-11-19 09:50] LABS: African American GFR (CKD) 51 (>60 ml/min/1.73 sqM); Anion Gap 8 mmol/L; Blood Urea Nitrogen 24 mg/dL (9-20); Calcium 8.9 mg/dL (8.4-10.2); Carbon Dioxide 14 mmol/L (22-30); Chloride 113 mmol/L (98-107); Glucose 111 mg/dL (74-99); Non-African American GFR(CKD) 44 (>60 ml/min/1.73 sqM); Potassium 5.3 mmol/L (3.5-5.1); Sodium 135 mmol/L (137-145)
[2023-11-19] MEDS: DEXTROSE 50% SYRINGE 50 ML IVP ONE (10:59)
[2023-11-19] MEDS: INSULIN REGULAR 100 UNIT/ML VIAL (IV) IV ONE (11:00)
--- NOTE | 2023-11-19 13:03 | P.PN ---
Subjective Progress Note Date: 11/19/23 patient is a 83-year-old gentleman past medical significant for coronary disease status post CABG presented to ER for acute onset of left-sided facial droop and weakness of right leg. Patient said he was all right yesterday afternoon around 3 PM after enjoying lunch with his friend he noticed that he was having hard time ambulating, there was also facial droop. Patient initially did not pay much noticed to it and went home but later ended up calling his friend as his symptoms were getting worse and he was having inability to walk on its own. Patient was also noticing facial droop. There was no complaint of chest pain or shortness of breath. No complaint of palpitation. Because of the symptoms, patient came to the ER Initial lab work done in the ER showed WBC 7, hemoglobin 9.3, platelet count 218, sodium 130, potassium 4.9, BUN 30, creatinine 1.89, glucose 137 EKG done in the ER showed heart rate of 87, no ST segment elevation or depression seen, no T-wave inversions seen. Chest x-ray done in the ER showed no acute findings CT head done showed no acute intracranial process, no intracranial hemorrhage CTA head and neck done showed no significant stenosis, aneurysm or thrombus in the intracranial circulation Patient admitted to internal medicine service. Patient symptoms improved while in the ER. 11/19. Patient seen and examined 2-D echo revealed technically difficult study. Normal left ventricular size and systolic function with EF 55 to 60%. Normal left atrial size. No valvular abnormalities. CTA head and neck showed: No flow-limiting stenosis, no large vessel occlusion or aneurysm reported. MRI brain negative for any acute intracranial process Neurology recommended aspirin and Plavix for 21 days followed by Plavix indefinitely Complaining of lethargy, blood pressure on lower side REVIEW OF SYSTEMS: CONSTITUTIONAL: No fever, no malaise,. CARDIOVASCULAR: No chest pain, no palpitations, no syncope. PULMONARY: No shortness of breath, no cough, GASTROINTESTINAL: No diarrhea, no nausea, no vomiting, no abdominal pain. NEUROLOGICAL: No headaches, no weakness, PHYSICAL EXAMINATION: GENERAL: The patient is alert and oriented x3, not in any acute distress. Well developed, well nourished. HEENT: Pupils are round and equally reacting to light. EOMI. No scleral icterus. No conjunctival pallor. Normocephalic, atraumatic. No pharyngeal erythema. No thyromegaly. CARDIOVASCULAR: S1 and S2 present. No murmurs, rubs, or gallops. PULMONARY: Chest is clear to auscultation, no wheezing or crackles. ABDOMEN: Soft, nontender, nondistended, normoactive bowel sounds. No palpable organomegaly. MUSCULOSKELETAL: No joint swelling or deformity. EXTREMITIES: No cyanosis, clubbing, or pedal edema. NEUROLOGICAL: Gross neurological examination did not reveal any focal deficits. SKIN: No rashes. Assessment and plan TIA Hypertension Acute kidney injury Hyperkalemia Hyperlipidemia Monitor vital signs Monitor CBC Monitor CMP Continue telemetry monitoring Continue neurochecks Continue IV fluid Potassium was 5.3, avoid high potassium diet 2-D echo revealed technically difficult study. Normal left ventricular size and systolic function with EF 55 to 60%. Normal left atrial size. No valvular abnormalities. CTA head and neck showed: No flow-limiting stenosis, no large vessel occlusion or aneurysm reported. Neurology recommended aspirin and Plavix for 21 days followed by Plavix indefinitely Labs and medication were reviewed.. Continue same treatment. Continue with symptomatic treatment. Resume home medication. Monitor labs and vitals. DVT and GI prophylaxis. Further recommendations as per clinical course of the patient Dictation was produced using [employer] dictation software. please excuse any grammatical, word or spelling errors. Objective - Vital Signs Vital signs: Vital Signs Temp 97.6 F 11/19/23 09:34 Pulse 61 11/19/23 09:34 Resp 20 11/19/23 09:34 BP 93/66 11/19/23 09:34 Pulse Ox 92 L 11/19/23 09:34 FiO2 Intake & Output 11/18/23 11/19/23 11/19/23 18:59 06:59 18:59 Intake Total 360 Balance 360 Weight 71.1 kg Intake: Oral 360 Other: Voiding Method Urinal Urinal # Voids 2 - Labs CBC & Chem 7: 11/19/23 08:51 11/19/23 08:51 Labs: Abnormal Lab Results - Last 24 Hours (Table) 11/19/23 11/19/23 Range/Units 08:51 08:51 RBC 3.23 L (4.30-5.90) m/uL Hgb 10.2 L (13.0-17.5) gm/dL Hct 31.3 L (39.0-53.0) % Sodium 135 L (137-145) mmol/L Potassium 5.3 H (3.5-5.1) mmol/L Chloride 113 H (98-107) mmol/L Carbon Dioxide 14 L (22-30) mmol/L BUN 24 H (9-20) mg/dL Creatinine 1.45 H (0.66-1.25) mg/dL Glucose 111 H (74-99) mg/dL
[2023-11-19 13:50] LABS: Chol/HDL Ratio 2.43 Ratio
[2023-11-19 14:08] LABS: LDL Cholesterol,Calculated 71.1 mg/dL (0.0-131.0); VLDL Calculation 15.96 mg/dL (5.00-40.00)
[2023-11-19 17:15] LABS: African American GFR (CKD) 48 (>60 ml/min/1.73 sqM); Anion Gap 6 mmol/L; Blood Urea Nitrogen 23 mg/dL (9-20); Calcium 8.5 mg/dL (8.4-10.2); Carbon Dioxide 18 mmol/L (22-30); Chloride 113 mmol/L (98-107); Glucose 139 mg/dL (74-99); Non-African American GFR(CKD) 41 (>60 ml/min/1.73 sqM); Potassium 4.7 mmol/L (3.5-5.1); Sodium 137 mmol/L (137-145)
[2023-11-20 08:55] VITALS: BP 155/89; PULSE 100; RESP 20; TEMP 97.8
--- NOTE | 2023-11-20 09:43 | P.PN ---
Subjective Progress Note Date: 11/19/23 Patient was seen for follow-up. Offers no complaints. Laying comfortably in the bed. Objective - Vital Signs Vital signs: Vital Signs Temp 98.2 F 11/19/23 11:12 Pulse 101 H 11/19/23 11:17 Resp 18 11/19/23 11:12 BP 96/61 11/19/23 11:17 Pulse Ox 93 L 11/19/23 11:12 FiO2 Intake & Output 11/18/23 11/19/23 11/19/23 18:59 06:59 18:59 Intake Total 360 Balance 360 Weight 71.1 kg Intake: Oral 360 Other: Voiding Method Urinal Urinal Urinal # Voids 2 - Exam Examination unchanged. Continues to have some left facial asymmetry, but im proves with active testing. Suspect may be from lack of dentition and sagging of the facial region. Rest of the examination is nonfocal. Patient does have cotton inserted into the right EAC. On taking out part of the cotton, it appears patient has some pus. Patient follows up with Dr. Davenport. - Labs CBC & Chem 7: 11/19/23 08:51 11/19/23 16:42 Labs: Abnormal Lab Results - Last 24 Hours (Table) 11/19/23 11/19/23 Range/Units 08:51 08:51 RBC 3.23 L (4.30-5.90) m/uL Hgb 10.2 L (13.0-17.5) gm/dL Hct 31.3 L (39.0-53.0) % Sodium 135 L (137-145) mmol/L Potassium 5.3 H (3.5-5.1) mmol/L Chloride 113 H (98-107) mmol/L Carbon Dioxide 14 L (22-30) mmol/L BUN 24 H (9-20) mg/dL Creatinine 1.45 H (0.66-1.25) mg/dL Glucose 111 H (74-99) mg/dL Assessment and Plan Assessment: * Stroke/TIA, manifesting with transient right leg weakness, left facial droop. Patient is edentulous, therefore uncertain if asymmetry is related to lack of support from dentition. 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 Plan: MRI of the brain without contrast, revealed age-related atrophy and chronic small vessel ischemic change. No acute intracranial process seen at this time. 2-D echo revealed technically difficult study. Normal left ventricular size and systolic function with EF 55 to 60%. Normal left atrial size. No valvular abnormalities. CTA head and neck showed: No flow-limiting stenosis, no large vessel occlusion or aneurysm reported. Fasting a.m. lipid panel with cholesterol 240, LDL 151, HDL 56, triglycerides 161. Patient was on Lipitor 10 mg at home. Dose increased to 40 mg. Hemoglobin A1c 6.5 on 10/04/2023, suggestive of borderline/mild diabetes. Recommend healthy lifestyles, dietary adjustment. Optimize control of blood pressure. Patient takes aspirin 81 mg daily. Patient given loading dose of aspirin 325 mg in the ER. Patient has probably failed aspirin regimen. Patient will be started on Plavix 75 mg daily as well. After 21 days, may stop aspirin and continue Plavix. Patient's right ear seems to have some drainage. Patient has placed cotton in the right EAC. Patient strongly recommended to follow-up with his ENT specialist Dr. Davenport. Discussed with primary physician here as well. Telemetry monitoring rule out any arrhythmia PT, OT, speech therapy DVT prophylaxis: Heparin 5000 units subcu every 8 hours Neurologically clear for discharge. Discussed with primary physician.
--- NOTE | 2023-11-20 11:22 | P.DS ---
Providers Date of admission: 11/18/23 01:05 Expected date of discharge: 11/20/23 Attending physician: Sharon Velásquez Consults: 11/18/23 01:04 Consult Physician Urgent Consulting Provider: Artemio Ya Consult Reason/Comments: left sided facial droop,suspected cva Do you want consulting provider notified?: Yes Primary care physician: Kenneth Luciano MD Hospital Course: Discharge diagnoses; TIA Hypertension Acute kidney injury Hyperkalemia Hyperlipidemia Hospital course; patient is a 83-year-old gentleman past medical significant for coronary disease status post CABG presented to ER for acute onset of left-sided facial droop and weakness of right leg. Patient said he was all right yesterday afternoon around 3 PM after enjoying lunch with his friend he noticed that he was having hard time ambulating, there was also facial droop. Patient initially did not pay much noticed to it and went home but later ended up calling his friend as his symptoms were getting worse and he was having inability to walk on its own. Patient was also noticing facial droop. There was no complaint of chest pain or shortness of breath. No complaint of palpitation. Because of the symptoms, patient came to the ER Initial lab work done in the ER showed WBC 7, hemoglobin 9.3, platelet count 218, sodium 130, potassium 4.9, BUN 30, creatinine 1.89, glucose 137 EKG done in the ER showed heart rate of 87, no ST segment elevation or depression seen, no T-wave inversions seen. Chest x-ray done in the ER showed no acute findings CT head done showed no acute intracranial process, no intracranial hemorrhage CTA head and neck done showed no significant stenosis, aneurysm or thrombus in the intracranial circulation Patient admitted to internal medicine service. Patient symptoms improved while in the ER. 11/19. Patient seen and examined 2-D echo revealed technically difficult study. Normal left ventricular size and systolic function with EF 55 to 60%. Normal left atrial size. No valvular abnormalities. CTA head and neck showed: No flow-limiting stenosis, no large vessel occlusion or aneurysm reported. MRI brain negative for any acute intracranial process Neurology recommended aspirin and Plavix for 21 days followed by Plavix indefinitely Complaining of lethargy, blood pressure on lower side 11/20. Patient seen and examined. Hyperkalemia has resolved. Blood pressure better. Discussed with patient regarding taking aspirin and Plavix for 21 days followed by Plavix indefinitely. Neurology cleared the patient for discharge PHYSICAL EXAMINATION: GENERAL: The patient is alert and oriented x3, not in any acute distress. Well developed, well nourished. HEENT: Pupils are round and equally reacting to light. EOMI. No scleral icterus. No conjunctival pallor. Normocephalic, atraumatic. No pharyngeal erythema. No thyromegaly. CARDIOVASCULAR: S1 and S2 present. No murmurs, rubs, or gallops. PULMONARY: Chest is clear to auscultation, no wheezing or crackles. ABDOMEN: Soft, nontender, nondistended, normoactive bowel sounds. No palpable organomegaly. MUSCULOSKELETAL: No joint swelling or deformity. EXTREMITIES: No cyanosis, clubbing, or pedal edema. NEUROLOGICAL: Gross neurological examination did not reveal any focal deficits. SKIN: No rashes. Dictation was produced using [employer] dictation software. please excuse any grammatical, word or spelling errors. Patient Condition at Discharge: Stable Plan - Discharge Summary New Discharge Prescriptions: New Atorvastatin [Lipitor] 40 mg PO DAILY 30 Days #30 tab Clopidogrel [Plavix] 75 mg PO DAILY 30 Days #30 tab Continue Octreotide Acetate,Mi-Spheres [SandoSTATIN [place]] 10 mg IM Q30D Ciprofloxacin-Dexameth [Ciprodex Otic Susp] 2 drops BOTH EARS BID Diphenoxylate HCl/Atropine [Lomotil 2.5-0.025 mg Tablet] 2 tab PO Q6H PRN PRN Reason: Diarrhea Aspirin 81 mg PO DAILY #21 tab Tamsulosin HCl [Flomax] 0.4 mg PO HS buPROPion XL [Wellbutrin XL] 150 mg PO DAILY Losartan [Cozaar] 25 mg PO DAILY Meclizine [Antivert] 25 mg PO BID PRN PRN Reason: dizziness Metoclopramide HCl [Reglan] 5 mg PO BID PRN PRN Reason: Nausea QUEtiapine [SEROquel] 400 mg PO HS rOPINIRole HCL [Requip] 1 mg PO HS Discontinued Atorvastatin [Lipitor] 10 mg PO HS Octreotide Acetate,Mi-Spheres [SandoSTATIN [place]] 30 mg IM Q30D Discharge Medication List Tamsulosin HCl [Flomax] 0.4 mg PO HS 09/11/22 [History] Octreotide Acetate,Mi-Spheres [SandoSTATIN [place]] 10 mg IM Q30D 06/04/23 [History] Ciprofloxacin-Dexameth [Ciprodex Otic Susp] 2 drops BOTH EARS BID 11/18/23 [History] Diphenoxylate HCl/Atropine [Lomotil 2.5-0.025 mg Tablet] 2 tab PO Q6H PRN 11/18/23 [History] Losartan [Cozaar] 25 mg PO DAILY 11/18/23 [History] Meclizine [Antivert] 25 mg PO BID PRN 11/18/23 [History] Metoclopramide HCl [Reglan] 5 mg PO BID PRN 11/18/23 [History] QUEtiapine [SEROquel] 400 mg PO HS 11/18/23 [History] buPROPion XL [Wellbutrin XL] 150 mg PO DAILY 11/18/23 [History] rOPINIRole HCL [Requip] 1 mg PO HS 11/18/23 [History] Aspirin 81 mg PO DAILY #21 tab 11/20/23 [Rx] Atorvastatin [Lipitor] 40 mg PO DAILY 30 Days #30 tab 11/20/23 [Rx] Clopidogrel [Plavix] 75 mg PO DAILY 30 Days #30 tab 11/20/23 [Rx] Follow up Appointment(s)/Referral(s): Kenneth Luciano MD [Primary Care Provider] - 1-2 days Activity/Diet/Wound Care/Special Instructions: Continue aspirin and Plavix for 21 days, after 21 days continue taking Plavix indefinitely and stop taking aspirin 81 mg. Discharge Disposition: HOME SELF-CARE
== END 2023-11-20 11:19 | disposition home or self-care (01) | DRG 69 ==
LOC: EC 22:15 → 3SCARD 11-18 01:05
PROVIDERS: ADMIT Hospitalist; ATTEND Hospitalist
DX: G45.9 Transient cerebral ischemic attack, unspecified (principal); N17.9 Acute kidney failure, unspecified; I16.1 Hypertensive emergency; E87.5 Hyperkalemia; E78.5 Hyperlipidemia, unspecified; R29.810 Facial weakness; F17.290 Nicotine dependence, other tobacco product, uncomplicated; H66.91 Otitis media, unspecified, right ear; I10 Essential (primary) hypertension; I25.10 Atherosclerotic heart disease of native coronary artery without angina pectoris; M19.90 Unspecified osteoarthritis, unspecified site; R29.6 Repeated falls; Z91.81 History of falling; Z87.19 Personal history of other diseases of the digestive system; K52.9 Noninfective gastroenteritis and colitis, unspecified; K21.9 Gastro-esophageal reflux disease without esophagitis; Z79.02 Long term (current) use of antithrombotics/antiplatelets; Z79.82 Long term (current) use of aspirin; Z79.899 Other long term (current) drug therapy; Z82.49 Family history of ischemic heart disease and other diseases of the circulatory system; Z85.038 Personal history of other malignant neoplasm of large intestine; Z85.46 Personal history of malignant neoplasm of prostate; Z95.1 Presence of aortocoronary bypass graft
CPT/HCPCS: 36415; 70450; 70496; 70498; 70551; 71045; 80048; 80053; 80061; 82550; 84132; 84484; 85025; 85610; 85730; 93306; 99291

== ENCOUNTER → 2024-02-28 | Outpatient (CLI) | payer MEDICARE, BC ==
--- NOTE | 2024-03-01 17:37 | CT ---
EXAMINATION TYPE: CT iac wo con DATE OF EXAM: 02/28/2024 COMPARISON: None HISTORY: BASAL CELL CARCINOMA SKIN/ R EAR CT DLP: 142.70mGycm Automated exposure control for dose reduction was used. FINDINGS: There is diffuse soft tissue density filling the right external auditory canal proximally to the leve l of the tympanic membrane. There is no definite osseous destruction. Laterally it extends to the rig ht ear, raising a question of neoplasm given the provided history. There is mild scattered fluid in t he right mastoid air cells. The middle ear cavity is well aerated. The ossicles are intact. The inner ear structures and internal auditory canal are unremarkable. There is mild scattered fluid in the left mastoid air cells. The left external and internal auditory canals are within normal limits. There is no bony destruction. The ossicles are intact. Inner ear structures are unremarkable IMPRESSION: 1.Abnormal soft tissue density involving the right ear extending into the right external auditory can al to the level of the tympanic membrane. The findings suspicious for neoplasm given the provided his tory. Differential diagnosis includes cholesteatoma and malignant otitis externa. There is no definit e osseous destruction. No abnormality of the middle or inner ear structures on the right.. 2. The left temporal bone is unremarkable. 3. Mild scattered fluid in the mastoid air cells bilaterally.
== END | disposition home or self-care (01) ==
LOC: RADCTMAIN 11:49
PROVIDERS: ATTEND Otolaryngology
DX: C44.212 Basal cell carcinoma of skin of right ear and external auricular canal (principal); D49.2 Neoplasm of unspecified behavior of bone, soft tissue, and skin
CPT/HCPCS: 70480

== ENCOUNTER → 2024-02-28 | Outpatient (CLI) | payer MEDICARE, BC ==
[2024-02-28 12:52] LABS: African American GFR (CKD) 43 (>60 ml/min/1.73 sqM); Blood Urea Nitrogen 25 mg/dL (9-20); Non-African American GFR(CKD) 37 (>60 ml/min/1.73 sqM)
--- NOTE | 2024-03-01 17:24 | CT ---
EXAMINATION TYPE: CT abdomen pelvis wo con CT DLP: 339.70 mGycm, Automated exposure control for dose reduction was used. 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 TECHNIQUE: Axial CT abdomen pelvis wo con;Sagittal and coronal reformats were created on a separate workstation. Contrast used: mL of , (none if empty) Oral contrast used: without Oral Contrast (none if empty) FINDINGS: LOWER CHEST: Unremarkable ABDOMEN LIVER: Unremarkable GALLBLADDER AND BILE DUCTS: The gallbladder is surgically absent. PANCREAS: Unremarkable. SPLEEN: Unremarkable. ADRENAL GLANDS: Unremarkable. KIDNEYS AND URETERS: Atrophic kidneys nonobstructing left 3 mm calculus. No right renal calculi. No o bstructive uropathy. Ureters are grossly unremarkable. PELVIS BLADDER: Unremarkable REPRODUCTIVE: Penile prosthesis with reservoir intact. Brachytherapy beads in the prostate. ABDOMEN & PELVIS STOMACH AND BOWEL: No evidence of bowel obstruction. Scattered colonic diverticula. Moderate amount s tool throughout colon. Small to moderate hiatal hernia. Gastroesophageal reflux versus dysmotility. PERITONEUM/RETROPERITONEUM: No evidence of pneumoperitoneum or free fluid. VASCULATURE: Mild atherosclerotic calcifications are present throughout the abdominal aorta and its b ranches. No evidence of aortic aneurysm. MUSCULOSKELETAL: No acute osseous abnormalities LYMPH NODES: No gross evidence for lymphadenopathy. SOFT TISSUE/ABDOMINAL WALL: Unremarkable IMPRESSION: 1. No evidence for lymphadenopathy or abdominal tumor. 2. Small hiatal hernia. 3. Gastroesophageal reflux/dysmotility. 4. Colonic diverticulosis. 5. Atrophic kidneys. 6. Moderate stool burden throughout the colon.
== END | disposition home or self-care (01) ==
LOC: RADCTMAIN 11:46
PROVIDERS: ATTEND Internal Medicine Hematology & Oncology
DX: C7A.012 Malignant carcinoid tumor of the ileum (principal); G89.3 Neoplasm related pain (acute) (chronic); K44.9 Diaphragmatic hernia without obstruction or gangrene; K21.9 Gastro-esophageal reflux disease without esophagitis; K57.30 Diverticulosis of large intestine without perforation or abscess without bleeding; N26.1 Atrophy of kidney (terminal); R19.7 Diarrhea, unspecified
CPT/HCPCS: 36415; 74176; 82565; 84520

== ENCOUNTER → 2024-04-06 | Outpatient (CLI) | payer MEDICARE, BC ==
[2024-04-06 13:57] LABS: African American GFR (CKD) 54 (>60 ml/min/1.73 sqM); Blood Urea Nitrogen 19 mg/dL (9-20); Non-African American GFR(CKD) 47 (>60 ml/min/1.73 sqM)
--- NOTE | 2024-04-11 14:37 | CT ---
EXAMINATION TYPE: CT soft tissue neck w con DATE OF EXAM: 04/06/2024 COMPARISON: None HISTORY: NEOPLASM OF PAROTID SALIVARY GLAND CT DLP: 481 mGycm CONTRAST: CT scan of the neck is performed with IV Contrast, patient injected with 80cc mL of Isovue 300. Contrast enhanced CT of the neck was performed from the skull base through the lung apices. AIRWAY: The supraglottic, glottic, and subglottic portions of the airway appear patent and free of mass. SALIVARY GLANDS: The submandibular and parotid glands are free of mass or inflammatory process. THYROID GLAND: No nodules or masses seen. LYMPH NODES: No adenopathy seen greater than 1cm. LUNG APICES: No nodule or mass is seen. OTHER: Vascular structures are patent. No significant degenerative change of the cervical spine. N o abscess seen. IMPRESSION: No distinct mass appreciated.
== END | disposition home or self-care (01) ==
LOC: RADCTMAIN 11:59
PROVIDERS: ATTEND Otolaryngology Otology & Neurotology
DX: D37.030 Neoplasm of uncertain behavior of the parotid salivary glands (principal); I10 Essential (primary) hypertension
CPT/HCPCS: 82565; 84520; 70491; 36415; Q9967

== ENCOUNTER → 2024-04-28 | Outpatient (CLI) | payer MEDICARE, BC ==
--- NOTE | 2024-04-28 12:30 | MR ---
EXAMINATION TYPE: MR neck wo/w con DATE OF EXAM: 04/28/2024 11:09 AM CLINICAL INDICATION:Male, 83 years old with history of M54.16 RADICULOPATHY, Auricle cancer right brandy e COMPARISON: 04/06/2024. TECHNIQUE: Multi planar, multi sequence imaging was performed of the neck soft tissues. MR contrast: IV Contrast: 6 cc Gadavist FINDINGS: Abnormal soft tissue extends into the internal auditory canal and terminates near the tympanic membra ne and measures up to 38 mm in length and 7 mm in thickness on DWI sequences. On postcontrast sequenc es enhancement is seen extending into the external auditory canal approximately 13 mm. Enhancement ar ound the trachea is in size and Pedro is present. There is asymmetric narrowing of the external audit ory canal. The glottis appears unremarkable. Several nonenlarged anterior chain lymph nodes are identified. The cervical vertebral bodies have preserved heights and alignment. Multilevel disc desiccation and anterior osteophytosis are present. The cervical spinal cord demonstrates a normal appearance. Jenkins otomy wires are present partially visualized. IMPRESSION: There is enhancement within the external auditory canal extending approximately 13 mm into the canal however soft tissue extends only to the tympanic membrane is seen on prior CT. There is also enhancem ent around the opening of the external auditory canal compatible with neoplasm. No greater than 1.0 c m short axis lymph node seen within the soft tissues. Overall findings similar prior CT 04/06/2024.
== END | disposition home or self-care (01) ==
LOC: RADMRIMAIN 09:59
PROVIDERS: ATTEND Otolaryngology
DX: M54.10 Radiculopathy, site unspecified (principal)
CPT/HCPCS: 70543; A9585

== ENCOUNTER 2024-07-21 12:18 | Inpatient (IN) | payer MEDICARE, BC ==
--- NOTE | 2024-07-21 12:51 | ED ---
General Adult HPI - General Source: patient, EMS, RN notes reviewed, old records reviewed Mode of arrival: EMS Limitations: no limitations <Grey Hardin - Last Filed: 07/21/24 13:38> <Brennan Thomas - Last Filed: 07/21/24 15:32> - General Chief complaint: Abdominal Pain Stated complaint: abd pain Time Seen by Provider: 07/21/24 12:25 - History of Present Illness Initial comments: This is an 83-year-old male who presents to the emergency department complaining of abdominal pain for a month. Patient states she has had intermittent vomiting and intermittent diarrhea over the same period of time. Patient has any fever or chills. Patient states the abdominal pain is diffuse. 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 Patient denies chest pain difficulty breathing shortness of breath. Patient denies any fever chills or cough. Patient denies any black or bloody stools. (Grey Hardin) - Related Data Home Medications Medication Instructions Recorded Confirmed Tamsulosin HCl [Flomax] 0.4 mg PO HS 09/11/22 11/18/23 Octreotide Acetate,Mi-Spheres 10 mg IM Q30D 06/04/23 11/18/23 [SandoSTATIN LAR [place]] Ciprofloxacin-Dexameth [Ciprodex 2 drops BOTH EARS BID 11/18/23 11/18/23 Otic Susp] Diphenoxylate HCl/Atropine 2 tab PO Q6H PRN 11/18/23 11/18/23 [Lomotil 2.5-0.025 mg Tablet] Losartan [Cozaar] 25 mg PO DAILY 11/18/23 11/18/23 Meclizine [Antivert] 25 mg PO BID PRN 11/18/23 11/18/23 Metoclopramide HCl [Reglan] 5 mg PO BID PRN 11/18/23 11/18/23 QUEtiapine [SEROquel] 400 mg PO HS 11/18/23 11/18/23 buPROPion XL [Wellbutrin XL] 150 mg PO DAILY 11/18/23 11/18/23 rOPINIRole HCL [Requip] 1 mg PO HS 11/18/23 11/18/23 Previous Rx's Medication Instructions Recorded Aspirin 81 mg PO DAILY #21 tab 11/20/23 Atorvastatin [Lipitor] 40 mg PO DAILY 30 Days #30 tab 11/20/23 Clopidogrel [Plavix] 75 mg PO DAILY 30 Days #30 tab 11/20/23 Allergies Allergy/AdvReac Type Severity Reaction Status Date / Time No Known Allergies Allergy Verified 07/21/24 12:27 Review of Systems ROS Other: All systems not noted in ROS Statement are negative. <Grey Hardin - Last Filed: 07/21/24 13:38> ROS Other: All systems not noted in ROS Statement are negative. <Brennan Thomas - Last Filed: 07/21/24 15:32> ROS Statement: Those systems with pertinent positive or pertinent negative responses have been documented in the HPI. 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 Past Anesthesia/Blood Transfusion Reactions: No Reported Reaction Past Psychological History: No Psychological Hx Reported Smoking Status: Former smoker, Light tobacco smoker Past Alcohol Use History: None Reported Past Drug Use History: None Reported - Past Family History Father Family Medical History: Myocardial Infarction ([place]) Additional Family Medical History / Comment(s): Pt did not know his father but they were told he of a [place] at the age of 42 yrs. Mother Family Medical History: Vascular Disorder Additional Family Medical History / Comment(s): Mother at age 68yrs, pt was told possible d/t ruptured aneurysm in her neck. <Grey Hardin - Last Filed: 07/21/24 13:38> General Exam Limitations: no limitations <Grey Hardin - Last Filed: 07/21/24 13:38> - General Exam Comments Initial Comments: GENERAL: Patient is well-developed and well-nourished. Patient is nontoxic and well- hydrated and is in moderate distress. ENT: Neck is soft and supple. No significant lymphadenopathy is noted. Oropharynx is clear. Moist mucous membranes. Neck has full range of motion without eliciting any pain. EYES: The sclera were anicteric and conjunctiva were pink and moist. Extraocular movements were intact and pupils were equal round and reactive to light. Eyelids were unremarkable. PULMONARY: Unlabored respirations. Good breath sounds bilaterally. No audible rales rhonchi or wheezing was noted. CARDIOVASCULAR: There is a regular rate and rhythm without any murmurs gallops or rubs. ABDOMEN: Diffuse abdominal pain SKIN: Skin is clear with no lesions or rashes and otherwise unremarkable. NEUROLOGIC: Patient is alert and oriented x3. Cranial nerves II through XII are grossly intact. Motor and sensory are also intact. Normal speech, volume and content. Symmetrical smile. MUSCULOSKELETAL: Normal extremities with adequate strength and full range of motion. LYMPHATICS: No significant lymphadenopathy is noted PSYCHIATRIC: Normal psychiatric evaluation. (Grey Hardin) Course Vital Signs 07/21/24 07/21/24 07/21/24 12:23 13:33 15:05 Temperature 97.6 F Pulse Rate 85 90 78 Respiratory 18 16 18 Rate Blood Pressure 182/100 154/88 156/77 O2 Sat by Pulse 99 96 93 L Oximetry Medical Decision Making - Lab Data Result diagrams: 07/21/24 12:43 <Grey Hardin - Last Filed: 07/21/24 13:38> - Lab Data Result diagrams: 07/21/24 12:43 07/21/24 12:43 <Brennan Thomas - Last Filed: 07/21/24 15:32> - Medical Decision Making Was pt. sent in by a medical professional or institution (, PA, SALES MARKETING COORDINATOR, urgent care, hospital, or [place] health care facility...) When possible be specific @ -[No] Did you speak to anyone other than the patient for history (EMS, parent, family, police, friend...)? What history was obtained from this source @ -[No] Did you review nursing and triage notes (agree or disagree)? Why? @ -[I reviewed and agree with nursing and triage notes] Were old charts reviewed (outside hosp., previous admission, EMS record, old EKG, old radiological studies, urgent care reports/EKG's, [place] health care facility records)? Report findings @ -[No old charts were reviewed] Differential Diagnosis? @ -Differential Abdominal Pain Men: Appendicitis, cholecystitis, diverticulosis, ischemic bowel, pancreatitis, hepatitis, UTI, gastroenteritis, AAA, incarcerated hernia, bowel obstruction, constipation, inflammatory bowel, hepatitis, peptic ulcer disease, splenic infarction, perforated viscus, testicular torsion, this is not meant to be an all-inclusive list EKG interpreted by me (3pts min.). @ -[As above] X-rays interpreted by me (1pt min.). @ -[None done] CT interpreted by me (1pt min.). @ -[None done] U/S interpreted by me (1pt. min.). @ -[None done] What testing was considered but not performed or refused? (CT, X-rays, U/S, labs)? Why? @ -[None] What meds were considered but not given or refused? Why? @ -[None] Did you discuss the management of the patient with other professionals (professionals i.e. , PA, SALES MARKETING COORDINATOR, lab, RT, psych nurse, child welfare social worker, glaze grinder, teacher, soil science technical officer, caseworker)? Give summary @ -[No] Was smoking cessation discussed for >3mins.? @ -[No] Was critical care preformed (if so, how long)? @ -[No] Were there social determinants of health that impacted care today? How? (Homelessness, low income, unemployed, alcoholism, drug addiction, transportation, low edu. Level, literacy, decrease access to med. care, care home, rehab)? @ -[No] Was there de-escalation of care discussed even if they declined (Discuss DNR or withdrawal of care, Hospice)? DNR status @ -[No] What co-morbidities impacted this encounter? (DM, HTN, Smoking, COPD, CAD, Cancer, CVA, ARF, Chemo, Hep., AIDS, mental health diagnosis, sleep apnea, morbid obesity)? @ -[None] Was patient admitted / discharged? Hospital course, mention meds given and route, prescriptions, significant lab abnormalities, going to OR and other pertinent info. @ -[facility] Patient reevaluated by myself, Dr. Thomas. Patient resting comfortably in bed. Patient states he does have abdominal discomfort for weeks, worse the past day or 2. CT scan interpreted by myself does show increase stool. In addition there is some mild free fluid adjacent to the cecum. Case discussed with Dr. Nava who will admit covering Dr. Luciano. Patient will be admitted for promotility and reevaluation for unlikely but shahbaz ble to rule out appendicitis. Diagnosis: Abdominal pain Acute Risks of bowel function (Brennan Thomas) - Lab Data Lab Results 07/21/24 07/21/24 07/21/24 Range/Units 12:43 12:43 12:43 WBC 7.8 (3.8-10.6) k/uL RBC 3.55 L (4.30-5.90) m/uL Hgb 11.1 L (13.0-17.5) gm/dL Hct 33.3 L (39.0-53.0) % MCV 93.8 (80.0-100.0) fL MCH 31.2 (25.0-35.0) pg MCHC 33.3 (31.0-37.0) g/dL RDW 12.1 (11.5-15.5) % Plt Count 358 (150-450) k/uL MPV 6.5 Neutrophils % 75 % Lymphocytes % 17 % Monocytes % 4 % Eosinophils % 2 % Basophils % 0 % Neutrophils # 5.8 (1.3-7.7) k/uL Lymphocytes # 1.3 (1.0-4.8) k/uL Monocytes # 0.3 (0-1.0) k/uL Eosinophils # 0.2 (0-0.7) k/uL Basophils # 0.0 (0-0.2) k/uL PT 10.5 (10.0-12.5) sec INR 1.0 (<1.2) APTT 26.0 (22.0-30.0) sec Sodium 130 L (137-145) mmol/L Potassium 4.8 (3.5-5.1) mmol/L Chloride 98 (98-107) mmol/L Carbon Dioxide 21 L (22-30) mmol/L Anion Gap 11 mmol/L BUN 24 H (9-20) mg/dL Creatinine 1.72 H (0.66-1.25) mg/dL Est GFR (CKD-EPI)AfAm 41 (>60 ml/min/1.73 sqM) Est GFR (CKD-EPI)NonAf 36 (>60 ml/min/1.73 sqM) Glucose 139 H (74-99) mg/dL Plasma Lactic Acid J Carlos (0.7-2.0) mmol/L Calcium 10.0 (8.4-10.2) mg/dL Total Bilirubin 0.6 (0.2-1.3) mg/dL AST 21 (17-59) U/L ALT 10 (4-49) U/L Alkaline Phosphatase 80 (38-126) U/L Total Protein 7.0 (6.3-8.2) g/dL Albumin 4.4 (3.5-5.0) g/dL Amylase 39 (30-110) U/L Lipase 10 L (23-300) U/L 07/21/24 Range/Units 12:43 WBC (3.8-10.6) k/uL RBC (4.30-5.90) m/uL Hgb (13.0-17.5) gm/dL Hct (39.0-53.0) % MCV (80.0-100.0) fL MCH (25.0-35.0) pg MCHC (31.0-37.0) g/dL RDW (11.5-15.5) % Plt Count (150-450) k/uL MPV Neutrophils % % Lymphocytes % % Monocytes % % Eosinophils % % Basophils % % Neutrophils # (1.3-7.7) k/uL Lymphocytes # (1.0-4.8) k/uL Monocytes # (0-1.0) k/uL Eosinophils # (0-0.7) k/uL Basophils # (0-0.2) k/uL PT (10.0-12.5) sec INR (<1.2) APTT (22.0-30.0) sec Sodium (137-145) mmol/L Potassium (3.5-5.1) mmol/L Chloride (98-107) mmol/L Carbon Dioxide (22-30) mmol/L Anion Gap mmol/L BUN (9-20) mg/dL Creatinine (0.66-1.25) mg/dL Est GFR (CKD-EPI)AfAm (>60 ml/min/1.73 sqM) Est GFR (CKD-EPI)NonAf (>60 ml/min/1.73 sqM) Glucose (74-99) mg/dL Plasma Lactic Acid J Carlos 1.8 (0.7-2.0) mmol/L Calcium (8.4-10.2) mg/dL Total Bilirubin (0.2-1.3) mg/dL AST (17-59) U/L ALT (4-49) U/L Alkaline Phosphatase (38-126) U/L Total Protein (6.3-8.2) g/dL Albumin (3.5-5.0) g/dL Amylase (30-110) U/L Lipase (23-300) U/L Disposition <Grey Hardin - Last Filed: 07/21/24 13:38> Is patient prescribed a controlled substance at d/c from ED?: No Time of Disposition: 15:12 <Brennan Thomas - Last Filed: 07/21/24 15:32> Clinical Impression: Abdominal pain Disposition: ADMITTED IP TO THIS HOSP
[2024-07-21 13:08] LABS: Basophils % (A) 0 %; Eosinophils # (A) 0.2 k/uL (0-0.7); Eosinophils % (A) 2 %; HCT 33.3 % (39.0-53.0); HGB 11.1 gm/dL (13.0-17.5); Lymphocytes # (A) 1.3 k/uL (1.0-4.8); Lymphocytes % (A) 17 %; MCH 31.2 pg (25.0-35.0); MCHC 33.3 g/dL (31.0-37.0); MCV 93.8 fL (80.0-100.0); Mean Platelet Volume 6.5; Monocytes # (A) 0.3 k/uL (0-1.0); Monocytes % (A) 4 %; Neutrophils # (A) 5.8 k/uL (1.3-7.7); Neutrophils % (A) 75 %; Platelet Count 358 k/uL (150-450); RBC 3.55 m/uL (4.30-5.90); RDW 12.1 % (11.5-15.5); WBC 7.8 k/uL (3.8-10.6)
[2024-07-21 13:19] LABS: Prothrombin Time 10.5 sec (10.0-12.5)
[2024-07-21] MEDS: HYDROmorphone 0.5 MG/0.5 ML SYRINGE IVP STA ×2 (13:22→14:01)
[2024-07-21] MEDS: ONDANSETRON 4 MG/2 ML VIAL IVP STA (13:23)
[2024-07-21 13:48] LABS: ALT 10 U/L (4-49); AST 21 U/L (17-59); African American GFR (CKD) 41 (>60 ml/min/1.73 sqM); Albumin 4.4 g/dL (3.5-5.0); Alkaline Phosphatase 80 U/L (38-126); Amylase 39 U/L (30-110); Anion Gap 11 mmol/L; Blood Urea Nitrogen 24 mg/dL (9-20); Carbon Dioxide 21 mmol/L (22-30); Chloride 98 mmol/L (98-107); Glucose 139 mg/dL (74-99); Lipase 10 U/L (23-300); Non-African American GFR(CKD) 36 (>60 ml/min/1.73 sqM); Potassium 4.8 mmol/L (3.5-5.1); Sodium 130 mmol/L (137-145); Total Bilirubin 0.6 mg/dL (0.2-1.3)
[2024-07-21] MEDS: SODIUM CHLORIDE 0.9% 1,000 ML IV STA (13:56)
--- NOTE | 2024-07-21 15:01 | CT ---
EXAMINATION TYPE: CT abdomen pelvis w con DATE OF EXAM: 07/21/2024 COMPARISON: 02/28/2024 INDICATION: Abdominal pain, burning and cramping, nausea and diarrhea x 1 month. DLP: 604.8 mGycm, Automated exposure control for dose reduction was used. CONTRAST: 80 mL of Isovue 300. Study performed without Oral Contrast TECHNIQUE: Axial images were obtained from above the diaphragm to the pubic rami in the axial plane a t 5 mm thick sections. Reconstructed images are reviewed on the computer in the coronal plane. FINDINGS: Limited CT sections are obtained the lung bases. Lung bases are clear.. There is a small to moderat e sized hiatal hernia CT ABDOMEN: Liver: Normal Spleen: Normal Pancreas: Atrophic Adrenal glands: The adrenal glands are normal. Gallbladder: Surgically absent Kidneys: No masses are evident. No hydronephrosis is present. No cysts are present. Nonobstructing punctate renal stone is in the superior pole right kidney. Aorta: Vascular calcification is within the aorta. Inferior vena cava: Normal. CT PELVIS: Penile prosthesis is present on the right. There is moderate fecal retention. The distal sigmoid colon has mild diffuse wall thickening. Conside r some mild colitis. Significant diverticular disease without evidence. Anterior Bowel anastomosis ap pears unremarkable This study is performed without oral contrast limiting bowel evaluation. Appendix: Normal as visualized. Small amount of fluid is adjacent to the cecum. No dilated tubular st ructure or inflammatory change evident. Clinical management recommended. Suspected appendicitis. Urinary bladder: Normal. Genitourinary structures: Multiple brachytherapy seeds within the prostate. Osseous structures: No suspicious lytic or sclerotic lesions. IMPRESSION: 1. Moderate fecal retention. 2. There is some mild diffuse wall thickening of the mid sigmoid colon. Consider mild colitis. 3. Moderate size hiatal hernia. 4. Small amount of free fluid adjacent to the cecum. No suspicious dilated or inflamed appendix is id entified. Clinical management for any suspected appendicitis recommended. 5. Punctate nonobstructing right renal stone [facility], , 07/21/2024 2:59 PM
[2024-07-21] MEDS ORDERED: DOCUSATE 100 MG CAP PO PRN (15:12)
[2024-07-21] MEDS ORDERED: NALOXONE 0.4 MG/ML 1 ML VIAL IV PRN (15:12)
[2024-07-21] MEDS: SODIUM CHLORIDE 0.9% 1,000 ML IV SCH (15:24)
[2024-07-21] MEDS: LACTULOSE 20 GM/30 ML CUP PO ONE (15:24)
[2024-07-21 16:32] LABS: Appearance,Urine Clear (Clear); Bilirubin,Urine Negative (Negative); Blood,Urine Negative (Negative); Color,Urine Colorless; Glucose,Urine (UA) Negative (Negative); Ketones,Urine Negative (Negative); Leukocyte Esterase,Urine Negative (Negative); Nitrite,Urine Negative (Negative); Protein,Urine Negative (Negative); Specific Gravity,Urine 1.023 (1.001-1.035); Urobilinogen,Urine <2.0 mg/dL (<2.0)
[2024-07-21] MEDS: HYDROmorphone 0.5 MG/0.5 ML SYRINGE IVP PRN (17:08)
[2024-07-21] MEDS: ERIVEDGE 150 MG PO SCH (21:26)
[2024-07-21] MEDS: LACTULOSE 20 GM/30 ML CUP PO PRN (21:34)
[2024-07-21] MEDS: FAMOTIDINE 20 MG TAB PO SCH (21:34)
[2024-07-21] MEDS: QUEtiapine 400 MG TAB PO SCH (21:34)
[2024-07-22] MEDS: FAMOTIDINE 20 MG TAB PO SCH (09:12)
[2024-07-22] MEDS: ASPIRIN 81 MG PO SCH (09:12)
[2024-07-22] MEDS: CLOPIDOGREL 75 MG TAB PO SCH (09:13)
[2024-07-22] MEDS: LOSARTAN 25 MG TAB PO SCH (09:13)
[2024-07-22 12:33] LABS: Basophils # (A) 0.04 X 10*3/uL (0.00-0.10); Basophils % (A) 0.4 %; HCT 28.1 % (39.6-50.0); HGB 9.4 g/dL (13.0-17.0); Lymphocytes # (A) 1.39 X 10*3/uL (0.90-5.00); Lymphocytes % (A) 14.2 %; MCH 32.2 pg (27.0-32.0); MCHC 33.5 g/dL (32.0-37.0); MCV 96.2 FL (80.0-97.0); Mean Platelet Volume 9.4 FL (9.5-12.2); Monocytes # (A) 0.77 X 10*3/uL (0.20-1.00); Monocytes % (A) 7.9 %; NRBC Per 100 WBC 0 X 10*3/uL (0.00-0.01); Neutrophils # (A) 7.34 X 10*3/uL (1.80-7.70); Neutrophils % (A) 75.1 %; Platelet Count 289 X 10*3/uL (140-440); RBC 2.92 X 10*6/uL (4.40-5.60); RDW 12.6 % (11.5-14.5); WBC 9.78 X 10*3/uL (4.50-10.00)
--- NOTE | 2024-07-22 13:18 | P.HPIM ---
History of Present Illness H&P Date: 07/22/24 History of present illness; patient is a 83-year-old gentleman with past medical history significant for hypertension who presented to the ER because of abdominal pain that has been going on for the last month. Patient stated that abdominal pain is generalized, intermittent, states it is cramping in nature, associated with vomiting and altered bowel movements in the form of diarrhea. Patient is complaining of loss of appetite. Patient is complaining of loss of weight. Denies any fever or chills. There is no complaint of chest pain or difficulty breathing. Because of this abdominal pain, patient went to the ER Initial lab work done in the ER showed WBC 7.8, hemoglobin 11.1, sodium 130, potassium 4.8, chloride 98, carbon 21, BUN 24, creatinine 1.72, glucose 139, bilirubin 0.6, AST 21, ALT 10, UA negative for any infection CT abdomen and pelvis done showed moderate fecal retention, there is mild diffuse wall thickening of the mid sigmoid colon consider mild colitis. Moderate sized hiatal hernia Small mount of free fluid adjacent to the cecum, no suspicious dilated or inflamed appendix is not identified Patient admitted to internal medicine service REVIEW OF SYSTEMS: CONSTITUTIONAL: No fever, no malaise, no fatigue. HEENT: No recent visual problems or hearing problems. Denied any sore throat. CARDIOVASCULAR: No chest pain, orthopnea, PND, no palpitations, no syncope. PULMONARY: No shortness of breath, no cough, no hemoptysis. GASTROINTESTINAL: As mentioned above NEUROLOGICAL: No headaches, no weakness, no numbness. HEMATOLOGICAL: Denies any bleeding or petechiae. GENITOURINARY: Denies any burning micturition, frequency, or urgency. MUSCULOSKELETAL/RHEUMATOLOGICAL: Denies any joint pain, swelling, or any muscle pain. ENDOCRINE: Denies any polyuria or polydipsia. The rest of the 14-point review of systems is negative. PHYSICAL EXAMINATION: GENERAL: The patient is alert and oriented x3, not in any acute distress. Well developed, well nourished. HEENT: Pupils are round and equally reacting to light. EOMI. No scleral icterus. No conjunctival pallor. Normocephalic, atraumatic. No pharyngeal erythema. No thyromegaly. CARDIOVASCULAR: S1 and S2 present. No murmurs, rubs, or gallops. PULMONARY: Chest is clear to auscultation, no wheezing or crackles. ABDOMEN: Soft, nontender, nondistended, normoactive bowel sounds. No palpable organomegaly. MUSCULOSKELETAL: No joint swelling or deformity. EXTREMITIES: No cyanosis, clubbing, or pedal edema. NEUROLOGICAL: Gross neurological examination did not reveal any focal deficits. SKIN: No rashes. Assessment and plan Acute colitis Hyponatremia Abdominal pain Acute kidney injury Hypertension History of TIA Monitor vital signs Monitor CBC Monitor CMP Continue telemetry monitoring Start IV Rocephin Start IV Flagyl Start IV fluids Start pain management with IV Dilaudid and oral [place] Resume home med Consult surgery Labs and medication were reviewed.. Continue same treatment. Continue with symptomatic treatment. Resume home medication. Monitor labs and vitals. DVT and GI prophylaxis. Further recommendations as per clinical course of the patient Dictation was produced using Memvu dictation software. please excuse any grammatical, word or spelling errors. 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 Past Anesthesia/Blood Transfusion Reactions: No Reported Reaction Past Psychological History: No Psychological Hx Reported Additional Psychological History / Comment(s): Pt resides in a trailer in [place]. Smoking Status: Former smoker, Light tobacco smoker Past Alcohol Use History: None Reported Additional Past Alcohol Use History / Comment(s): Patient reports that he would smoke cigars occasionally but none for many years. Past Drug Use History: None Reported - Past Family History Father Family Medical History: Myocardial Infarction ([place]) Additional Family Medical History / Comment(s): Pt did not know his father but they were told he of a [place] at the age of 42 yrs. Mother Family Medical History: Vascular Disorder Additional Family Medical History / Comment(s): Mother at age 68yrs, pt was told possible d/t ruptured aneurysm in her neck. Medications and Allergies Home Medications Medication Instructions Recorded Confirmed Type Losartan [Cozaar] 25 mg PO DAILY 11/18/23 07/21/24 History QUEtiapine [SEROquel] 400 mg PO HS 11/18/23 07/21/24 History rOPINIRole HCL [Requip] 1 mg PO HS 11/18/23 07/21/24 History Aspirin 81 mg PO DAILY #21 tab 11/20/23 07/21/24 Rx Clopidogrel [Plavix] 75 mg PO DAILY 30 Days #30 tab 11/20/23 07/21/24 Rx Erivedge 150mg 150 mg PO HS 07/21/24 07/21/24 History Famotidine 40 mg PO DAILY 07/21/24 07/21/24 History Octreotide Lar [SandoSTATIN LAR] 40 mg SQ Q28D 07/21/24 07/21/24 History Ondansetron [Zofran] 4 mg PO Q4H PRN 07/21/24 07/21/24 History Allergies Allergy/AdvReac Type Severity Reaction Status Date / Time No Known Allergies Allergy Verified 07/21/24 15:58 Physical Exam Vitals: Vital Signs Temp Pulse Pulse Pulse Resp BP BP 07/22/24 07:45 103 H 105 H 16 07/22/24 07:07 97.8 F 103 H 16 92/55 07/22/24 05:14 105 H 07/22/24 01:11 98.1 F 85 17 07/21/24 21:35 98.1 F 78 21 07/21/24 16:37 97.3 F L 96 18 07/21/24 15:35 98 F 78 18 151/77 07/21/24 15:05 78 18 156/77 07/21/24 13:33 90 16 154/88 BP Pulse Ox 07/22/24 07:45 07/22/24 07:07 94 L 07/22/24 05:14 116/77 07/22/24 01:11 96/52 96 07/21/24 21:35 132/65 99 07/21/24 16:37 156/83 99 07/21/24 15:35 97 07/21/24 15:05 93 L 07/21/24 13:33 96 Intake and Output 07/21/24 07/22/24 07/22/24 22:59 06:59 14:59 Intake Total 180 Balance 180 Intake: Oral 180 Other: # Voids 2 4 4 Weight 58.967 kg Results CBC & Chem 7: 07/22/24 07:11 07/21/24 12:43 Labs: Abnormal Lab Results - Last 24 Hours (Table) 07/21/24 07/22/24 Range/Units 12:43 07:11 RBC 2.92 L (4.40-5.60) X 10*6/uL Hgb 9.4 L (13.0-17.0) g/dL Hct 28.1 L (39.6-50.0) % MCH 32.2 H (27.0-32.0) pg MPV 9.4 L (9.5-12.2) FL Sodium 130 L (137-145) mmol/L Carbon Dioxide 21 L (22-30) mmol/L BUN 24 H (9-20) mg/dL Creatinine 1.72 H (0.66-1.25) mg/dL Glucose 139 H (74-99) mg/dL Lipase 10 L (23-300) U/L Thrombosis Risk Factor Assmnt - Choose All That Apply Any of the Below Risk Factors Present?: Yes Other Risk Factors: Yes Each Risk Factor Represents 3 Points: Age 75 years or older Thrombosis Risk Factor Assessment Total Risk Factor Score: 3 Thrombosis Risk Factor Assessment Level: Moderate Risk
--- NOTE | 2024-07-22 13:27 | P.CON ---
Consult Note - . Consult date: 07/22/24 Assessment/Plan:: This is an 83-year-old male who presents to the emergency department complaining of abdominal pain for a month. Patient states he has had intermittent vomiting and intermittent diarrhea over the same period of time. Patient has any fever or chills. Patient states the abdominal pain is diffuse. 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 Patient denies chest pain difficulty breathing shortness of breath. Patient denies any fever chills or cough. Patient denies any black or bloody stools. CT-AP shows inflammation around the sigmoid colon concerning for colitis. There is also some free fluid adjacent to the cecum but no evidence of appendicitis. Patient states his abdominal pain is worse today and diffuse. He also states he is more distended. Patient is diffusely tender on exam. Review of Systems ROS Other: All systems not noted in ROS Statement are negative. 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 Past Anesthesia/Blood Transfusion Reactions: No Reported Reaction Past Psychological History: No Psychological Hx Reported Smoking Status: Former smoker, Light tobacco smoker Past Alcohol Use History: None Reported Past Drug Use History: None Reported - Past Family History Father Family Medical History: Myocardial Infarction (ME) Additional Family Medical History / Comment(s): Pt did not know his father but they were told he of a ME at the age of 42 yrs. Mother Family Medical History: Vascular Disorder Additional Family Medical History / Comment(s): Mother at age 68yrs, pt was told possible d/t ruptured aneurysm in her neck. General Exam Limitations: no limitations GENERAL: Patient is well-developed and well-nourished. Patient is nontoxic and well- hydrated and is in moderate distress. ENT: Neck is soft and supple. No significant lymphadenopathy is noted. Oropharynx is clear. Moist mucous membranes. Neck has full range of motion without eliciting any pain. EYES: The sclera were anicteric and conjunctiva were pink and moist. Extraocular movements were intact and pupils were equal round and reactive to light. Eyelids were unremarkable. PULMONARY: Unlabored respirations. Good breath sounds bilaterally. No audible rales rhonchi or wheezing was noted. CARDIOVASCULAR: There is a regular rate and rhythm without any murmurs gallops or rubs. ABDOMEN: Diffuse abdominal pain. Diffuse TTP, distended SKIN: Skin is clear with no lesions or rashes and otherwise unremarkable. NEUROLOGIC: Patient is alert and oriented x3. Cranial nerves II through XII are grossly intact. Motor and sensory are also intact. Normal speech, volume and content. Symmetrical smile. MUSCULOSKELETAL: Normal extremities with adequate strength and full range of motion. LYMPHATICS: No significant lymphadenopathy is noted PSYCHIATRIC: Normal psychiatric evaluation. 83 year old male with diffuse abdominal pain. CT-AP shows sigmoid colitis and some free fluid adjacent to the cecum without evidence of appendicitis -Patient made NPO due to worsening pain -Repeat CT-AP ordered -Rocephin/Flagyl -Pain and Nausea Control -Further recs to follow CT-AP Darius Paniagua [facility] [phone]
[2024-07-22 14:37] LABS: ALT 13 U/L (4-49); AST 27 U/L (17-59); African American GFR (CKD) 48 (>60 ml/min/1.73 sqM); Albumin 3.9 g/dL (3.5-5.0); Albumin/Globulin Ratio 1.6; Alkaline Phosphatase 90 U/L (38-126); Anion Gap 8 mmol/L; Blood Urea Nitrogen 19 mg/dL (9-20); Calcium 9.2 mg/dL (8.4-10.2); Carbon Dioxide 20 mmol/L (22-30); Chloride 107 mmol/L (98-107); Globulin 2.5 g/dL; Glucose 149 mg/dL (74-99); Non-African American GFR(CKD) 42 (>60 ml/min/1.73 sqM); Potassium 4.7 mmol/L (3.5-5.1); Sodium 135 mmol/L (137-145); Total Bilirubin 0.6 mg/dL (0.2-1.3); Total Protein 6.4 g/dL (6.3-8.2)
[2024-07-22] MEDS: metroNIDAZOLE-NS PMX 500 MG in SALINE 1 100ML.BAG IVPB SCH (16:10)
--- NOTE | 2024-07-22 16:53 | CT ---
EXAMINATION TYPE: CT abdomen pelvis w con DATE OF EXAM: 07/22/2024 COMPARISON: 07/21/2024 INDICATION: Abdominal pain, burning and cramping, nausea and diarrhea x 1 month. History of prostate ca and colon ca. Currently on oral chemo. DLP: 598.7 mGycm, Automated exposure control for dose reduction was used. CONTRAST: 80ml mL of Isovue 300. Study performed without Oral Contrast TECHNIQUE: Axial images were obtained from above the diaphragm to the pubic rami in the axial plane a t 5 mm thick sections. Reconstructed images are reviewed on the computer in the coronal plane. FINDINGS: Limited CT sections are obtained the lung bases. There is interval development of some mild streak o pacities in the bilateral lung bases likely on the basis of atelectasis.. Small to moderate sized hi atal hernia is present. CT ABDOMEN: Some minimal fluid is formed adjacent to the tip of the right lobe of the liver. Liver: Normal Spleen: Normal Pancreas: Atrophic. The patient's pancreatic cancer is not identified. Adrenal glands: The adrenal glands are normal. Gallbladder: Surgically absent Kidneys: No masses are evident. No hydronephrosis is present. No cysts are present. Delayed images were obtained through the kidneys, which remain unremarkable. Aorta: Vascular calcification is within the aorta. Inferior vena cava: Normal. CT PELVIS: Postsurgical changes within the mid abdomen. There are fluid-filled small bowel loops are slightly pr ominent but no definite obstruction identified. Fecal debris is within the colon similar to compariso n. Previous sigmoid wall mild thickening is not as apparent. A few scattered small diverticula hypert rophy present. Cecum is prominent and may be increasing in size from prior fecal debris is in the asc ending colon. Lesser fecal debris within the descending colon. Minimal fluid is adjacent to the cecum present previously Appendix: Not identified. Urinary bladder: Contrast-filled urinary bladder appears unremarkable Genitourinary structures: Brachytherapy seeds within prostate. Osseous structures: No suspicious lytic or sclerotic lesions. IMPRESSION: 1. Increasing air-filled cecum measuring 8.6 cm diameter. Fecal debris filled ascending colon with l hubert fecal debris within the descending colon region. Correlate for constipation. 2. Fluid-filled dilated small bowel loops. No focal stenosis at the anastomosis. Correlate for ileus. 3. Improved appearance of the sigmoid wall without thickening or inflammatory changes. 4. Interval development of minimal fluid adjacent to the liver and within the pelvis. 5. No mild streak atelectasis bilateral lung bases. [facility], Workstation: [facility], 07/22/2024 4:50 PM
--- NOTE | 2024-07-22 22:08 | P.PN ---
Progress Note - Text Progress Note Date: 07/22/[address]-AP that was ordered earlier today reviewed. Patient has very prominent bowel loops concerning for ileus or obstruction although there is no definite transition point seen. Patient is still having a lot of abdominal pain and some nausea. He denies vomiting. Patient discussed with nursing staff and nurse is going to place a Nasogastric Tube to LIS. Will continue to follow patient closely. Darius Paniagua DO [facility] [phone]
[2024-07-22] MEDS: NA PHOS,M-B/NA PHOS,DI-BA 133 ML ENEMA RECTAL PRN (23:16)
[2024-07-23] MEDS: bisacodyL 10 MG SUPP RECTAL PRN (00:34)
[2024-07-23] MEDS: ONDANSETRON 4 MG/2 ML VIAL IVP PRN (06:46)
[2024-07-23] MEDS: FAMOTIDINE 20 MG TAB PO SCH (08:22)
[2024-07-23 09:24] LABS: African American GFR (CKD) 52 (>60 ml/min/1.73 sqM); Anion Gap 9 mmol/L; Blood Urea Nitrogen 18 mg/dL (9-20); Carbon Dioxide 19 mmol/L (22-30); Chloride 105 mmol/L (98-107); Glucose 167 mg/dL (74-99); Non-African American GFR(CKD) 45 (>60 ml/min/1.73 sqM); Potassium 4.6 mmol/L (3.5-5.1); Sodium 133 mmol/L (137-145)
[2024-07-23] MEDS: bisacodyL 10 MG SUPP RECTAL STA (09:43)
--- NOTE | 2024-07-23 13:38 | P.PN ---
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 Repeat CT of abdomen pelvis reported increasing air-filled cecum, prominent bowel loops. Maintained on IV fluid hydration, pain management ,unable to tolerate NG tube, positive nausea minimal emesis. Positive abdominal pain throughout. Maintained on Flagyl, ceftriaxone, IV fluids. Afebrile. Sodium 133, bicarb 19, BUN 18, creatinine 1.42. Objective - Vital Signs Vital signs: Vital Signs Temp 98.0 F 07/23/24 08:00 Pulse 79 07/23/24 08:00 Resp 16 07/23/24 08:00 BP 95/66 07/23/24 08:00 Pulse Ox 97 07/23/24 08:00 FiO2 Intake & Output 07/22/24 07/23/24 07/23/24 18:59 06:59 18:59 Output Total 100 Balance -100 Output: Urine 100 Other: # Voids 2 # Bowel Movements 2 - Exam Gen: well developed, elderly male in mod. distress HEENT: NC/AT,sclera anicteric Neck: supple, no JVD CV: RRR, no murmur Lungs: normal effort, clear throughout Abd: soft distended, diffuse tenderness Neuro: AAOx3, no focal deficit Skin: warm and dry - Labs CBC & Chem 7: 07/23/24 08:36 07/23/24 08:36 Labs: Abnormal Lab Results - Last 24 Hours (Table) 07/22/24 07/23/24 Range/Units 13:54 08:36 Sodium 135 L 133 L (137-145) mmol/L Carbon Dioxide 20 L 19 L (22-30) mmol/L Creatinine 1.52 H 1.42 H (0.66-1.25) mg/dL Glucose 149 H 167 H (74-99) mg/dL Assessment and Plan Assessment: Abdominal pain , possible ileus, possible acute sigmoid colitis-repeat CT reported improved appearance of the sigmoid wall without thickening or inflammatory changes Constipation Hyponatremia Acute kidney injury CAD, history of CABG Hypertenion History of TIA Major depression Carcinoid syndrome Plan: Continue on current medication resume ,monitoring and symptomatic treatment. NPO, IV fluids, ceftriaxone/Flagyl. Lactulose and suppositories as per general surgery. pain management. Increase ambulation as tolerated. Close monitoring of coags, renal function, electrolytes with repeat labs ordered for am. The impression and plan of care has been dictated as directed. : I performed a history and examination of this patient, discussed the same with the dictator. I agree with the dictator's note ,documented as a scribe. Any additional findings or plans will be noted.
[2024-07-23] MEDS: bisacodyL 10 MG SUPP RECTAL SCH (14:03)
[2024-07-23] MEDS: LACTULOSE 20 GM/30 ML CUP PO SCH (14:03)
[2024-07-23 15:01] LABS: Basophils # (A) 0.04 X 10*3/uL (0.00-0.10); Basophils % (A) 0.3 %; Eosinophils # (A) 0.04 X 10*3/uL (0.04-0.35); Eosinophils % (A) 0.3 %; HGB 10.1 g/dL (13.0-17.0); Lymphocytes # (A) 0.85 X 10*3/uL (0.90-5.00); Lymphocytes % (A) 6.1 %; MCH 30.9 pg (27.0-32.0); MCHC 32.6 g/dL (32.0-37.0); MCV 94.8 FL (80.0-97.0); Mean Platelet Volume 9.1 FL (9.5-12.2); Monocytes # (A) 0.62 X 10*3/uL (0.20-1.00); Monocytes % (A) 4.5 %; NRBC Per 100 WBC 0 X 10*3/uL (0.00-0.01); Neutrophils # (A) 12.24 X 10*3/uL (1.80-7.70); Neutrophils % (A) 88.4 %; Platelet Count 305 X 10*3/uL (140-440); RBC 3.27 X 10*6/uL (4.40-5.60); RDW 12.7 % (11.5-14.5); WBC 13.85 X 10*3/uL (4.50-10.00)
--- NOTE | 2024-07-23 15:20 | P.PN ---
Subjective Progress Note Date: 07/23/24 CHIEF COMPLAINT: Abdominal pain HISTORY OF PRESENT ILLNESS: Surgical service following in regards to ileus versus bowel obstruction. Patient is having flatus. No bowel movements. He did vomit during the night. Nursing staff did try to place an NG tube. Patient had the NG tube for about 5 minutes and then had a removed. Patient cannot tolerate the NG tube. Afebrile. Mildly tachycardic. WBC 13.8 patient on antibiotics. Hgb 10.1 platelets [address] scan abdomen pelvis reports increasing air-filled cecum measuring 8.6 cm diameter. Fecal debris filled ascending colon with lesser fecal debris within the descending colon region. Correlate for constipation. Fluid-filled dilated small bowel loops. correlate for ileus. Improved appearance of the sigmoid wall without thickening of inflammatory changes. PHYSICAL EXAM: VITAL SIGNS: Reviewed. GENERAL: no acute distress. ABDOMEN: Distended. Tenderness with palpation of the lower abdomen NEUROLOGIC: Alert and oriented. Cranial nerves II through XII grossly intact. ASSESSMENT: 1. Ileus 2. Constipation 3. Possible colitis. Mild diffuse wall thickening of the mid sigmoid colon noted on first CAT scan now resolved on repeat CAT scan PLAN: -Lactulose twice daily and declog suppositories ordered to help stimulate bowel movements -Continue antibiotics -Keep patient n.p.o. -Patient refused NG tube -Continue IV fluids -Encourage patient to ambulate Physician Supervisor Chlorine Liquefaction note has been reviewed by physician. Signing provider agrees with the documented findings, assessment, and plan of care. Attestation Patient seen and examined at bedside. Patient had some increase in distention and abdominal pain and CT of the abdomen and pelvis was ordered with finding of some distention of the cecum with fecal debris filled ascending colon. Recommendation was made for correlation for constipation with some fluid-filled dilated small bowel loops correlated for ileus. There is improved inflammatory changes at the sigmoid colon. The patient still complaining of abdominal pain. Denying any bowel movements at this time. Continue with bowel regimen. Repeat abdominal x-ray for evaluation to be performed in the morning. Patient noted to have leukocytosis today. Recommendation was made to the patient for nasogastric decompression. Apparently this was attempted by nursing staff and was placed for short period of time of less than 10 minutes and was then removed by the patient. He is refusing to replace the NG tube at this time. Will continue to follow. Tulio Jauregui, DO Objective - Vital Signs Vital signs: Vital Signs Temp 97.1 F L 07/23/24 14:00 Pulse 100 07/23/24 14:00 Resp 17 07/23/24 14:00 BP 139/81 07/23/24 14:00 Pulse Ox 94 L 07/23/24 14:00 FiO2 Intake & Output 07/22/24 07/23/24 07/23/24 18:59 06:59 18:59 Output Total 100 Balance -100 Output: Urine 100 Other: # Voids 2 # Bowel Movements 2 - Labs CBC & Chem 7: 07/23/24 08:36 07/23/24 08:36 Labs: Abnormal Lab Results - Last 24 Hours (Table) 07/23/24 07/23/24 Range/Units 08:36 08:36 WBC 13.85 H (4.50-10.00) X 10*3/uL RBC 3.27 L (4.40-5.60) X 10*6/uL Hgb 10.1 L (13.0-17.0) g/dL Hct 31.0 L (39.6-50.0) % MPV 9.1 L (9.5-12.2) FL Immature Gran # 0.06 H (0.00-0.04) X 10*3/uL Neutrophils # 12.24 H (1.80-7.70) X 10*3/uL Lymphocytes # 0.85 L (0.90-5.00) X 10*3/uL Sodium 133 L (137-145) mmol/L Carbon Dioxide 19 L (22-30) mmol/L Creatinine 1.42 H (0.66-1.25) mg/dL Glucose 167 H (74-99) mg/dL
[2024-07-23] MEDS: ACETAMINOPHEN TAB 325 MG TAB PO PRN (21:37)
--- NOTE | 2024-07-24 09:44 | P.PN ---
Subjective Progress Note Date: 07/24/24 This is an 83-year-old gentleman admitted with abdominal pain over the last month accompanied by nausea and vomiting presented to the ER with diffuse abdominal pain in a patient with carcinoid syndrome on Sandostatin outpatient-on hold CT of abdomen pelvis suggested sigmoid colitis. Repeat CT of abdomen pelvis reported increasing air-filled cecum, prominent bowel loops. Maintained on IV fluid hydration, pain management ,unable to tolerate NG tube, positive nausea minimal emesis. Positive abdominal pain throughout. Maintained on Flagyl, ceftriaxone, IV fluids. Afebrile. Sodium 133, bicarb 19, BUN 18, creatinine 1.42. 07/24/2024 maintained on ceftriaxone, Flagyl and IV fluid hydration .afebrile, yesterday WBCI ncreased to 13.85 with improvement in renal function. a.m. labs pending. nausea and vomiting this morning, subsided after having nonpainful ,small bowel movement. continues to have abdominal pain worse on the right lower quadrant. denies chest pain, palpitations or shortness of breath. Maintaining O2 sats in the mid 90s on room air. Denies cough, congestion. Objective - Vital Signs Vital signs: Vital Signs Temp 98.3 F 07/24/24 07:26 Pulse 108 H 07/24/24 07:26 Resp 16 07/24/24 07:26 BP 143/85 07/24/24 07:26 Pulse Ox 94 L 07/24/24 07:26 FiO2 Intake & Output 07/23/24 07/24/24 07/24/24 18:59 06:59 18:59 Output Total 150 Balance -150 Output: Emesis 150 Other: # Voids 2 2 # Bowel Movements 1 - Exam Gen: AAOX3,sitting up in bed,NAD HEENT: NC/AT,sclera anicteric Neck: supple, no JVD CV: RRR, no murmur Lungs: normal effort, clear throughout Abd: soft distended, diffuse tenderness, greatest right lower quadrant Neuro:CNII-XII WNL,no focal deficit Skin: warm and dry - Labs CBC & Chem 7: 07/23/24 08:36 07/23/24 08:36 Labs: Abnormal Lab Results - Last 24 Hours (Table) 07/23/24 Range/Units 08:36 WBC 13.85 H (4.50-10.00) X 10*3/uL RBC 3.27 L (4.40-5.60) X 10*6/uL Hgb 10.1 L (13.0-17.0) g/dL Hct 31.0 L (39.6-50.0) % MPV 9.1 L (9.5-12.2) FL Immature Gran # 0.06 H (0.00-0.04) X 10*3/uL Neutrophils # 12.24 H (1.80-7.70) X 10*3/uL Lymphocytes # 0.85 L (0.90-5.00) X 10*3/uL Assessment and Plan Assessment: Abdominal pain , possible ileus, possible acute sigmoid colitis-repeat CT reported improved appearance of the sigmoid wall without thickening or inflammatory changes Constipation Hyponatremia Acute kidney injury CAD, history of CABG Hypertenion History of TIA Major depression Carcinoid syndrome Plan: Continue on current medication resume ,monitoring and symptomatic treatment. A.m. labs pending. NPO, IV fluids, ceftriaxone/Flagyl. PRN Lactulose and suppositories as per general surgery. pain management. Increase ambulation as tolerated. The impression and plan of care has been dictated as directed. : I performed a history and examination of this patient, discussed the same with the dictator. I agree with the dictator's note ,documented as a scribe. Any additional findings or plans will be noted.
--- NOTE | 2024-07-24 09:59 | XR ---
EXAMINATION TYPE: XR abdomen 2V DATE OF EXAM: 07/24/2024 9:26 AM CLINICAL INDICATION: Male, 83 years old with history of ileus; [facility] COMPARISON: CT one day prior TECHNIQUE: Two views of the abdomen were obtained. FINDINGS/IMPRESSION: 1. Large amount stool throughout the bowel with gaseous dilation air-fluid levels of the small bowel . Findings compatible with ileus 2. Excreted IV contrast seen within the urinary bladder. 3. Brachytherapy beads in the prostate gland. [facility], , 07/24/2024 9:57 AM
[2024-07-24 11:21] LABS: Basophils % (A) 0 %; Eosinophils % (A) 0 %; HCT 29.4 % (39.0-53.0); Lymphocytes # (A) 0.7 k/uL (1.0-4.8); Lymphocytes % (A) 4 %; MCH 30.9 pg (25.0-35.0); MCHC 31.9 g/dL (31.0-37.0); MCV 96.8 fL (80.0-100.0); Mean Platelet Volume 6.5; Monocytes # (A) 0.4 k/uL (0-1.0); Monocytes % (A) 3 %; Neutrophils # (A) 14.4 k/uL (1.3-7.7); Neutrophils % (A) 92 %; Platelet Count 326 k/uL (150-450); RBC 3.04 m/uL (4.30-5.90); RDW 12.6 % (11.5-15.5); WBC 15.7 k/uL (3.8-10.6)
[2024-07-24 11:22] LABS: HGB 9.4 gm/dL (13.0-17.5)
[2024-07-24 11:25] LABS: African American GFR (CKD) 61 (>60 ml/min/1.73 sqM); Anion Gap 8 mmol/L; Blood Urea Nitrogen 20 mg/dL (9-20); Calcium 8.6 mg/dL (8.4-10.2); Carbon Dioxide 17 mmol/L (22-30); Chloride 112 mmol/L (98-107); Glucose 167 mg/dL (74-99); Non-African American GFR(CKD) 53 (>60 ml/min/1.73 sqM); Potassium 3.8 mmol/L (3.5-5.1); Sodium 137 mmol/L (137-145)
--- NOTE | 2024-07-24 15:43 | P.PN ---
Subjective Progress Note Date: 07/24/24 CHIEF COMPLAINT: Abdominal pain HISTORY OF PRESENT ILLNESS: Surgical service following in regards to ileus. Patient is having flatus. His abdominal distention is less. He did have a moderate-sized bowel movement. He did have vomiting last night and 1 episode this morning prior to the bowel movement. Patient reports that he is feeling better. Follow-up abdominal x-ray ordered which reported large amount of stool throughout the bowel with gaseous dilation air-fluid levels of the small bowel findings compatible with ileus. Afebrile. Mildly tachycardic improved. WBC is up from 13.8-15.7 Hgb 9.4 creatinine 1.25 PHYSICAL EXAM: VITAL SIGNS: Reviewed. GENERAL: no acute distress. ABDOMEN: Less distended. Nontender. No guarding. NEUROLOGIC: Alert and oriented. Cranial nerves II through XII grossly intact. ASSESSMENT: 1. Ileus 2. Constipation 3. Possible colitis. Mild diffuse wall thickening of the mid sigmoid colon noted on first CAT scan now resolved on repeat CAT scan PLAN: -Repeat CBC in a.m. -Advance diet to clear liquids -Continue lactulose -Soap dmitry enemas daily x 2 days -Continue antibiotics -Continue IV fluids -Encourage patient to ambulate Physician Amphibious Operations Officer note has been reviewed by physician. Signing provider agrees with the documented findings, assessment, and plan of care. Objective - Vital Signs Vital signs: Vital Signs Temp 97.1 F L 07/24/24 13:33 Pulse 66 07/24/24 13:33 Resp 17 07/24/24 13:33 BP 151/87 07/24/24 13:33 Pulse Ox 97 07/24/24 13:33 FiO2 Intake & Output 07/23/24 07/24/24 07/24/24 18:59 06:59 18:59 Output Total 150 Balance -150 Output: Emesis 150 Other: # Voids 2 2 # Bowel Movements 1 - Labs CBC & Chem 7: 07/24/24 11:06 07/24/24 11:06 Labs: Abnormal Lab Results - Last 24 Hours (Table) 07/24/24 07/24/24 Range/Units 11:06 11:06 WBC 15.7 H (3.8-10.6) k/uL RBC 3.04 L (4.30-5.90) m/uL Hgb 9.4 L D (13.0-17.5) gm/dL Hct 29.4 L (39.0-53.0) % Neutrophils # 14.4 H (1.3-7.7) k/uL Lymphocytes # 0.7 L (1.0-4.8) k/uL Chloride 112 H (98-107) mmol/L Carbon Dioxide 17 L (22-30) mmol/L Glucose 167 H (74-99) mg/dL Assessment and Plan Assessment: passing flatus w/ moderate sized bowel movement this am. Still complaining of nausea, patient has abdominal xray demonstrate large stool load in left colon. Continue enemas and dulcolax suppository. Time with Patient: Less than 30
[2024-07-24] MEDS: MINERAL OIL 133 ML ENEMA RECTAL STA (16:19)
[2024-07-25] MEDS: ONDANSETRON 4 MG/2 ML VIAL IVP PRN (04:14)
[2024-07-25 04:56] LABS: Basophils # (A) 0.2 k/uL (0-0.2); Basophils % (A) 1 %; Eosinophils # (A) 0.2 k/uL (0-0.7); Eosinophils % (A) 1 %; HCT 29.6 % (39.0-53.0); HGB 10.3 gm/dL (13.0-17.5); Lymphocytes # (A) 2.1 k/uL (1.0-4.8); Lymphocytes % (A) 13 %; MCH 33.6 pg (25.0-35.0); MCHC 34.9 g/dL (31.0-37.0); MCV 96.2 fL (80.0-100.0); Mean Platelet Volume 9.5; Monocytes # (A) 0.8 k/uL (0-1.0); Monocytes % (A) 5 %; Neutrophils # (A) 12.6 k/uL (1.3-7.7); Neutrophils % (A) 78 %; Platelet Count 260 k/uL (150-450); RBC 3.08 m/uL (4.30-5.90); RDW 13.3 % (11.5-15.5); WBC 16.1 k/uL (3.8-10.6)
[2024-07-25] MEDS: LACTULOSE 20 GM/30 ML CUP PO SCH (09:53)
[2024-07-25 12:32] LABS: African American GFR (CKD) 61 (>60 ml/min/1.73 sqM); Anion Gap 11 mmol/L; Blood Urea Nitrogen 18 mg/dL (9-20); Calcium 8.2 mg/dL (8.4-10.2); Carbon Dioxide 16 mmol/L (22-30); Chloride 115 mmol/L (98-107); Glucose 224 mg/dL (74-99); Non-African American GFR(CKD) 53 (>60 ml/min/1.73 sqM); Potassium 3.6 mmol/L (3.5-5.1); Sodium 142 mmol/L (137-145)
--- NOTE | 2024-07-25 13:06 | P.PN ---
Subjective Progress Note Date: 07/25/24 CHIEF COMPLAINT: Abdominal pain HISTORY OF PRESENT ILLNESS: Surgical service following in regards to ileus. Patient is having flatus. Patient did have diarrhea yesterday. He had no results with the enemas. Patient has had no vomiting. He does have episodes of nausea. Patient did walk in the hallway with nursing staff this morning. Abdominal x-ray reviewed with surgeon with evidence of stool balls in the colon. Afebrile. Mildly tachycardic. WBC is up from 15.7-16.1 Hgb 10.3 platelets 260 PHYSICAL EXAM: VITAL SIGNS: Reviewed. GENERAL: no acute distress. ABDOMEN: distended. Nontender. No guarding. NEUROLOGIC: Alert and oriented. Cranial nerves II through XII grossly intact. ASSESSMENT: 1. Ileus 2. Constipation 3. Possible colitis. Mild diffuse wall thickening of the mid sigmoid colon noted on first CAT scan now resolved on repeat CAT scan 4. Leukocytosis PLAN: -Increase lactulose to 3 times a day. Continue daily Dulcolax suppository -Encourage patient to ambulate -Continue antibiotics -Repeat CBC in AM -Unable to add Reglan for ileus because interacts with the Seroquel and Requip Physician Clay Temperer note has been reviewed by physician. Signing provider agrees with the documented findings, assessment, and plan of care. Objective - Vital Signs Vital signs: Vital Signs Temp 99.0 F 07/25/24 07:24 Pulse 107 H 07/25/24 07:24 Resp 17 07/25/24 09:33 BP 105/65 07/25/24 07:24 Pulse Ox 93 L 07/25/24 07:24 FiO2 Intake & Output 07/24/24 07/25/24 07/25/24 18:59 06:59 18:59 Output Total 1 Balance -1 Output: Stool 1 Other: # Voids 4 1 # Bowel Movements 1 - Labs CBC & Chem 7: 07/25/24 02:48 07/25/24 11:55 Labs: Abnormal Lab Results - Last 24 Hours (Table) 07/25/24 07/25/24 Range/Units 02:48 11:55 WBC 16.1 H (3.8-10.6) k/uL RBC 3.08 L (4.30-5.90) m/uL Hgb 10.3 L (13.0-17.5) gm/dL Hct 29.6 L (39.0-53.0) % Neutrophils # 12.6 H (1.3-7.7) k/uL Chloride 115 H (98-107) mmol/L Carbon Dioxide 16 L (22-30) mmol/L Glucose 224 H (74-99) mg/dL Calcium 8.2 L (8.4-10.2) mg/dL Assessment and Plan Assessment: 83 yo male w/ constipation -continue bowel regimen -npo for now Time with Patient: Less than 30
--- NOTE | 2024-07-25 14:40 | P.PN ---
Subjective Progress Note Date: 07/25/24 This is an 83-year-old gentleman admitted with abdominal pain over the last month accompanied by nausea and vomiting presented to the ER with diffuse abdominal pain in a patient with carcinoid syndrome on Sandostatin outpatient-on hold CT of abdomen pelvis suggested sigmoid colitis. Repeat CT of abdomen pelvis reported increasing air-filled cecum, prominent bowel loops. Maintained on IV fluid hydration, pain management ,unable to tolerate NG tube, positive nausea minimal emesis. Positive abdominal pain throughout. Maintained on Flagyl, ceftriaxone, IV fluids. Afebrile. Sodium 133, bicarb 19, BUN 18, creatinine 1.42. 07/24/2024 maintained on ceftriaxone, Flagyl and IV fluid hydration .afebrile, yesterday WBCI ncreased to 13.85 with improvement in renal function. a.m. labs pending. nausea and vomiting this morning, subsided after having nonpainful ,small bowel movement. continues to have abdominal pain worse on the right lower quadrant. denies chest pain, palpitations or shortness of breath. Maintaining O2 sats in the mid 90s on room air. Denies cough, congestion. 07/25/2024 abdominal x-ray completed yesterday reported large amount of stool throughout the bowel with gaseous dilation and air-fluid levels of the small bowel compatible with ileus .reports minimal diarrhea yesterday, positive bowel movement on lactulose. Continues to have abdominal pain rated at a 5 out of 10 greatest on the left lower quadrant. Tmax 99, WBC increased to 16.1. Mild tachycardia. Hemoglobin 10.3, platelets 260. BMP pending. ambulated this morning with assistance in the hallway, tolerated exertion well Objective - Vital Signs Vital signs: Vital Signs Temp 98.6 F 07/25/24 13:19 Pulse 97 07/25/24 13:19 Resp 15 07/25/24 13:19 BP 113/71 07/25/24 13:19 Pulse Ox 95 07/25/24 13:19 FiO2 Intake & Output 07/24/24 07/25/24 07/25/24 18:59 06:59 18:59 Output Total 1 Balance -1 Output: Stool 1 Other: # Voids 4 1 # Bowel Movements 1 - Exam Gen: AAOX3,sitting up in bed,NAD HEENT: NC/AT,sclera anicteric Neck: supple, no JVD CV: RRR, no murmur Lungs: normal effort, clear throughout Abd: soft distended, diffuse tenderness, greatest left lower quadrant Neuro:CNII-XII WNL,no focal deficit Skin: warm and dry - Labs CBC & Chem 7: 07/25/24 02:48 07/25/24 11:55 Labs: Abnormal Lab Results - Last 24 Hours (Table) 07/25/24 07/25/24 Range/Units 02:48 11:55 WBC 16.1 H (3.8-10.6) k/uL RBC 3.08 L (4.30-5.90) m/uL Hgb 10.3 L (13.0-17.5) gm/dL Hct 29.6 L (39.0-53.0) % Neutrophils # 12.6 H (1.3-7.7) k/uL Chloride 115 H (98-107) mmol/L Carbon Dioxide 16 L (22-30) mmol/L Glucose 224 H (74-99) mg/dL Calcium 8.2 L (8.4-10.2) mg/dL Assessment and Plan Assessment: Abdominal pain , possible ileus, possible acute sigmoid colitis-repeat CT reported improved appearance of the sigmoid wall without thickening or inflammatory changes Constipation Leukocytosis Hyponatremia, resolved Acute kidney injury CAD, history of CABG Hypertenion History of TIA Major depression Carcinoid syndrome Plan: Continue on current medication resume ,monitoring and symptomatic treatment. BMP pending. Maintaining O2 sats in the lower 90s,aggressive pulmonary toileting with incentive spirometer ordered. PRN Lactulose and sup positories as per general surgery. pain management. Increase ambulation as tolerated. The impression and plan of care has been dictated as directed. : I performed a history and examination of this patient, discussed the same with the dictator. I agree with the dictator's note ,documented as a scribe. Any additional findings or plans will be noted.
[2024-07-25] MEDS: PEG 3350 (236 GM/BTL) + LYTES 4,000 ML BOTTLE PO ONE (15:40)
[2024-07-26 08:37] LABS: Basophils # (A) 0.02 X 10*3/uL (0.00-0.10); Basophils % (A) 0.2 %; Eosinophils # (A) 0.04 X 10*3/uL (0.04-0.35); Eosinophils % (A) 0.4 %; HCT 26.7 % (39.6-50.0); HGB 8.9 g/dL (13.0-17.0); Lymphocytes # (A) 0.84 X 10*3/uL (0.90-5.00); Lymphocytes % (A) 8.4 %; MCH 31.8 pg (27.0-32.0); MCHC 33.3 g/dL (32.0-37.0); MCV 95.4 FL (80.0-97.0); Mean Platelet Volume 9.4 FL (9.5-12.2); Monocytes # (A) 0.66 X 10*3/uL (0.20-1.00); Monocytes % (A) 6.6 %; NRBC Per 100 WBC 0 X 10*3/uL (0.00-0.01); Neutrophils # (A) 8.43 X 10*3/uL (1.80-7.70); Platelet Count 310 X 10*3/uL (140-440); RDW 13.4 % (11.5-14.5); WBC 10.03 X 10*3/uL (4.50-10.00)
[2024-07-26 08:42] LABS: Blood Urea Nitrogen 18.2 mg/dL (9.0-27.0); Calcium 8.2 mg/dL (8.7-10.3); Carbon Dioxide 17.9 mmol/L (21.6-31.8); Chloride 114 mmol/L (96-109); Glucose 188 mg/dL (70-110); Potassium 3.6 mmol/L (3.5-5.5); Sodium 143 mmol/L (135-145)
--- NOTE | 2024-07-26 11:31 | P.PN ---
Subjective Progress Note Date: 07/26/24 This is an 83-year-old gentleman admitted with abdominal pain over the last month accompanied by nausea and vomiting presented to the ER with diffuse abdominal pain in a patient with carcinoid syndrome on Sandostatin outpatient-on hold CT of abdomen pelvis suggested sigmoid colitis. Repeat CT of abdomen pelvis reported increasing air-filled cecum, prominent bowel loops. Maintained on IV fluid hydration, pain management ,unable to tolerate NG tube, positive nausea minimal emesis. Positive abdominal pain throughout. Maintained on Flagyl, ceftriaxone, IV fluids. Afebrile. Sodium 133, bicarb 19, BUN 18, creatinine 1.42. 07/24/2024 maintained on ceftriaxone, Flagyl and IV fluid hydration .afebrile, yesterday WBCI ncreased to 13.85 with improvement in renal function. a.m. labs pending. nausea and vomiting this morning, subsided after having nonpainful ,small bowel movement. continues to have abdominal pain worse on the right lower quadrant. denies chest pain, palpitations or shortness of breath. Maintaining O2 sats in the mid 90s on room air. Denies cough, congestion. 07/25/2024 abdominal x-ray completed yesterday reported large amount of stool throughout the bowel with gaseous dilation and air-fluid levels of the small bowel compatible with ileus .reports minimal diarrhea yesterday, positive bowel movement on lactulose. Continues to have abdominal pain rated at a 5 out of 10 greatest on the left lower quadrant. Tmax 99, WBC increased to 16.1. Mild tachycardia. Hemoglobin 10.3, platelets 260. BMP pending. ambulated this morning with assistance in the hallway, tolerated exertion well. 07/26/24 lactulose increased yesterday in addition to the Dulcolax suppository as per general surgery. Reports bowel movement last night. Continues to have significant pain especially in the left lower quadrant. Reports no appetite, positive nausea and vomiting yesterday-none today. Maintained on ceftriaxone and IV fluid hydration.WBC has normalized, afebrile, mild tachycardia. Denies chest pain, palpitations or shortness of breath. Maintaining O2 sats in the 90s on room air. Hemoglobin 8.9, platelets 310 ,renal function stable. Objective - Vital Signs Vital signs: Vital Signs Temp 98.4 F 07/26/24 07:01 Pulse 103 H 07/26/24 07:50 Resp 16 07/26/24 07:50 BP 135/80 07/26/24 07:01 Pulse Ox 94 L 07/26/24 07:01 FiO2 Intake & Output 07/25/24 07/26/24 07/26/24 18:59 06:59 18:59 Other: Voiding Method Toilet Toilet Urinal Urinal # Voids 3 2 - Exam Gen: AAOX3,sitting up in bed,NAD HEENT: NC/AT,sclera anicteric Neck: supple, no JVD CV: RRR, no murmur Lungs: normal effort, clear throughout Abd: soft distended, diffuse tenderness, greatest left lower quadrant Neuro:CNII-XII WNL,no focal deficit Skin: warm and dry - Labs CBC & Chem 7: 07/26/24 03:10 07/26/24 03:10 Labs: Abnormal Lab Results - Last 24 Hours (Table) 07/25/24 07/26/24 07/26/24 Range/Units 11:55 03:10 03:10 WBC 10.03 H (4.50-10.00) X 10*3/uL RBC 2.80 L (4.40-5.60) X 10*6/uL Hgb 8.9 L (13.0-17.0) g/dL Hct 26.7 L (39.6-50.0) % MPV 9.4 L (9.5-12.2) FL Neutrophils # 8.43 H (1.80-7.70) X 10*3/uL Lymphocytes # 0.84 L (0.90-5.00) X 10*3/uL Chloride 115 H 114 H (98-107) mmol/L Carbon Dioxide 16 L 17.9 L (22-30) mmol/L Est GFR (CKD-EPI) 54 L (>=60) Glucose 224 H 188 H (74-99) mg/dL Calcium 8.2 L 8.2 L (8.4-10.2) mg/dL Assessment and Plan Assessment: Abdominal pain , possible ileus, possible acute sigmoid colitis-repeat CT reported improved appearance of the sigmoid wall without thickening or i nflammatory changes Constipation Leukocytosis Hyponatremia, resolved Acute kidney injury CAD, history of CABG Hypertenion History of TIA Major depression Carcinoid syndrome Plan: Continue on current medication resume ,monitoring and symptomatic treatment. Increase ambulation,aggressive pulmonary toileting with incentive spirometer ordered. Lactulose and suppositories as per general surgery. pain management. The impression and plan of care has been dictated as directed. : I performed a history and examination of this patient, discussed the same with the dictator. I agree with the dictator's note ,documented as a scribe. Any additional findings or plans will be noted.
[2024-07-26 13:27] VITALS: BMI 19.8
--- NOTE | 2024-07-26 14:28 | P.PN ---
Subjective Progress Note Date: 07/26/24 CHIEF COMPLAINT: Abdominal pain HISTORY OF PRESENT ILLNESS: Surgical service following in regards to ileus and stool balls. Patient is having flatus. She had 1 episode of diarrhea yesterday. Patient still reports feeling distended and pain in the left lower abdomen. He is having flatus. Denies any nausea or vomiting. He is only drank a small amount of the GoLytely bowel prep. And he has taken a few of the doses of the lactulose. Afebrile. Mildly tachycardic. WBC is down from 16.1-10.03 Hgb 8.9 creatinine 1.3 PHYSICAL EXAM: VITAL SIGNS: Reviewed. GENERAL: no acute distress. ABDOMEN: distended. Tenderness with palpation of the lower left side of the abdomen and suprapubic area NEUROLOGIC: Alert and oriented. Cranial nerves II through XII grossly intact. ASSESSMENT: 1. Ileus 2. Constipation 3. Possible colitis. Mild diffuse wall thickening of the mid sigmoid colon noted on first CAT scan now resolved on repeat CAT scan 4. Leukocytosis improving PLAN: -Continue GoLytely bowel prep, lactulose and Dulcolax suppository -Repeat CBC in a.m. -Continue antibiotics -Encourage patient to ambulate -Will place Plavix on hold in case of any surgical intervention Physician Boy'S Adviser note has been reviewed by physician. Signing provider agrees with the documented findings, assessment, and plan of care. Objective - Vital Signs Vital signs: Vital Signs Temp 98.2 F 07/26/24 13:27 Pulse 106 H 07/26/24 13:27 Resp 12 07/26/24 13:27 BP 118/70 07/26/24 13:27 Pulse Ox 94 L 07/26/24 07:01 FiO2 Intake & Output 07/25/24 07/26/24 07/26/24 18:59 06:59 18:59 Weight 58.967 kg Other: Voiding Method Toilet Toilet Urinal Urinal # Voids 3 2 - Labs CBC & Chem 7: 07/26/24 03:10 07/26/24 03:10 Labs: Abnormal Lab Results - Last 24 Hours (Table) 07/26/24 07/26/24 Range/Units 03:10 03:10 WBC 10.03 H (4.50-10.00) X 10*3/uL RBC 2.80 L (4.40-5.60) X 10*6/uL Hgb 8.9 L (13.0-17.0) g/dL Hct 26.7 L (39.6-50.0) % MPV 9.4 L (9.5-12.2) FL Neutrophils # 8.43 H (1.80-7.70) X 10*3/uL Lymphocytes # 0.84 L (0.90-5.00) X 10*3/uL Chloride 114 H (96-109) mmol/L Carbon Dioxide 17.9 L (21.6-31.8) mmol/L Est GFR (CKD-EPI) 54 L (>=60) Glucose 188 H (70-110) mg/dL Calcium 8.2 L (8.7-10.3) mg/dL
[2024-07-26] MEDS: HEPARIN SODIUM,PORCINE 5,000 UNIT/ML 1 ML VIAL SQ SCH (21:24)
[2024-07-27 09:44] LABS: Basophils % (A) 0 %; Eosinophils # (A) 0.1 k/uL (0-0.7); Eosinophils % (A) 2 %; HCT 28.7 % (39.0-53.0); Lymphocytes # (A) 1.1 k/uL (1.0-4.8); Lymphocytes % (A) 16 %; MCH 30.5 pg (25.0-35.0); MCHC 31.2 g/dL (31.0-37.0); MCV 97.7 fL (80.0-100.0); Mean Platelet Volume 7.2; Monocytes # (A) 0.3 k/uL (0-1.0); Monocytes % (A) 4 %; Neutrophils # (A) 5.1 k/uL (1.3-7.7); Neutrophils % (A) 76 %; Platelet Count 367 k/uL (150-450); RBC 2.94 m/uL (4.30-5.90); WBC 6.7 k/uL (3.8-10.6)
[2024-07-27 09:58] LABS: African American GFR (CKD) 70 (>60 ml/min/1.73 sqM); Anion Gap 7 mmol/L; Blood Urea Nitrogen 19 mg/dL (9-20); Calcium 8.2 mg/dL (8.4-10.2); Carbon Dioxide 16 mmol/L (22-30); Chloride 121 mmol/L (98-107); Glucose 158 mg/dL (74-99); Non-African American GFR(CKD) 60 (>60 ml/min/1.73 sqM); Potassium 3.1 mmol/L (3.5-5.1); Sodium 144 mmol/L (137-145)
--- NOTE | 2024-07-27 12:31 | P.PN ---
Subjective Progress Note Date: 07/27/24 This is an 83-year-old gentleman admitted with abdominal pain over the last month accompanied by nausea and vomiting presented to the ER with diffuse abdominal pain in a patient with carcinoid syndrome on Sandostatin outpatient-on hold CT of abdomen pelvis suggested sigmoid colitis. Repeat CT of abdomen pelvis reported increasing air-filled cecum, prominent bowel loops. Maintained on IV fluid hydration, pain management ,unable to tolerate NG tube, positive nausea minimal emesis. Positive abdominal pain throughout. Maintained on Flagyl, ceftriaxone, IV fluids. Afebrile. Sodium 133, bicarb 19, BUN 18, creatinine 1.42. 07/24/2024 maintained on ceftriaxone, Flagyl and IV fluid hydration .afebrile, yesterday WBCI ncreased to 13.85 with improvement in renal function. a.m. labs pending. nausea and vomiting this morning, subsided after having nonpainful ,small bowel movement. continues to have abdominal pain worse on the right lower quadrant. denies chest pain, palpitations or shortness of breath. Maintaining O2 sats in the mid 90s on room air. Denies cough, congestion. 07/25/2024 abdominal x-ray completed yesterday reported large amount of stool throughout the bowel with gaseous dilation and air-fluid levels of the small bowel compatible with ileus .reports minimal diarrhea yesterday, positive bowel movement on lactulose. Continues to have abdominal pain rated at a 5 out of 10 greatest on the left lower quadrant. Tmax 99, WBC increased to 16.1. Mild tachycardia. Hemoglobin 10.3, platelets 260. BMP pending. ambulated this morning with assistance in the hallway, tolerated exertion well. 07/26/24 lactulose increased yesterday in addition to the Dulcolax suppository as per general surgery. Reports bowel movement last night. Continues to have significant pain especially in the left lower quadrant. Reports no appetite, positive nausea and vomiting yesterday-none today. Maintained on ceftriaxone and IV fluid hydration.WBC has normalized, afebrile, mild tachycardia. Denies chest pain, palpitations or shortness of breath. Maintaining O2 sats in the 90s on room air. Hemoglobin 8.9, platelets 310 ,renal function stable. 07/27/2024 continues on his lactulose, sipping his GoLytely, 5 bowel movements reported between last night and this morning. Potassium 3.1, supplementation ordered .Creatinine decreased 1.12. continues to have abdominal pain, denies nausea and vomiting. Ambulating, tolerating exertion well. Maintained on ceftriaxone, Flagyl and IV fluids denies chills, sweats. Afebrile, normal WBC 6.7. Hemoglobin 9, platelets 367. Objective - Vital Signs Vital signs: Vital Signs Temp 97.8 F 07/27/24 08:00 Pulse 99 07/27/24 08:00 Resp 16 07/27/24 08:00 BP 144/80 07/27/24 08:00 Pulse Ox 95 07/27/24 08:00 FiO2 Intake & Output 07/26/24 07/27/24 07/27/24 18:59 06:59 18:59 Intake Total 1375 Output Total 1 Balance 1375 -1 Weight 58.967 kg Intake: Intake, IV Titration 725 Amount Sodium Chloride 0.9% 1, 475 000 ml @ 75 mls/hr IV . [id number] [facility] Rx#:[id number] cefTRIAXone 1 gm In 50 Sodium Chloride 0.9% 50 ml @ 100 mls/hr IVPB Q24HR [facility] Rx#:[id number] metroNIDAZOLE-NS PMX 500 200 mg In Saline 1 100ml.bag @ 100 mls/hr IVPB Q8HR [facility] Rx#:[id number] Oral 650 Output: Stool 1 Other: Voiding Method Toilet Toilet Urinal Urinal # Voids 2 4 # Bowel Movements 3 1 - Exam Gen: AAOX3,sitting up in bed,NAD HEENT: NC/AT,sclera anicteric Neck: supple, no JVD CV: RRR, no murmur Lungs: normal effort, clear throughout Abd: soft distended, diffuse tenderness, greatest left lower quadrant, mildly lessened. Neuro:CNII-XII WNL,no focal deficit Skin: warm and dry - Labs CBC & Chem 7: 07/27/24 09:10 07/27/24 09:10 Labs: Abnormal Lab Results - Last 24 Hours (Table) 07/27/24 07/27/24 Range/Units 09:10 09:10 RBC 2.94 L (4.30-5.90) m/uL Hgb 9.0 L (13.0-17.5) gm/dL Hct 28.7 L (39.0-53.0) % Potassium 3.1 L (3.5-5.1) mmol/L Chloride 121 H (98-107) mmol/L Carbon Dioxide 16 L (22-30) mmol/L Glucose 158 H (74-99) mg/dL Calcium 8.2 L (8.4-10.2) mg/dL Assessment and Plan Assessment: Abdominal pain,possible ileus, possible acute sigmoid colitis-repeat CT reported improved appearance of the sigmoid wall without thickening or inflammatory changes Constipation Leukocytosis Hyponatremia, resolved Acute kidney injury CAD, history of CABG Hypertenion History of TIA Major depression Carcinoid syndrome Plan: Continue on current medication resume ,monitoring and symptomatic treatment. Encouraged to continue drinking his GoLytely, as well as lactulose, increase ambulation. Continue aggressive pulmonary toileting with incentive spirometer ordered. Pain management. The impression and plan of care has been dictated as directed. : I performed a history and examination of this patient, discussed the same with the dictator. I agree with the dictator's note ,documented as a scribe. Any additional findings or plans will be noted.
--- NOTE | 2024-07-27 14:38 | P.PN ---
Subjective Progress Note Date: 07/27/24 CHIEF COMPLAINT: Abdominal pain HISTORY OF PRESENT ILLNESS: Patient had bowel movements. Some of the stool was formed. Patient reports overall feeling better. However, his abdomen still remains distended and he has tenderness along that left lower quadrant. Afebrile. He has been mildly tachycardic. WBC is down from 10-6.7 normal. Hemoglobin 9.0 potassium is 3.1 creatinine 1.12 magnesium 2.4. PHYSICAL EXAM: VITAL SIGNS: Reviewed. GENERAL: no acute distress. ABDOMEN: distended. Tenderness with palpation of the lower left side of the abdomen and suprapubic area NEUROLOGIC: Alert and oriented. Cranial nerves II through XII grossly intact. ASSESSMENT: 1. Ileus 2. Constipation 3. Possible colitis. Mild diffuse wall thickening of the mid sigmoid colon noted on first CAT scan now resolved on repeat CAT scan 4. Leukocytosis improving PLAN: -Encourage patient to continue to drink the GoLytely bowel prep. Apparently he has been refusing the lactulose. Continue to collect suppository. -Encourage patient to ambulate -Continue to monitor closely -Continue antibiotics -Encourage patient to ambulate -Will place Plavix on hold in case of any surgical intervention -Medicine service replacing potassium Physician Cage Loader note has been reviewed by physician. Signing provider agrees with the documented findings, assessment, and plan of care. Objective - Vital Signs Vital signs: Vital Signs Temp 97.8 F 07/27/24 08:00 Pulse 99 07/27/24 08:00 Resp 16 07/27/24 08:00 BP 144/80 07/27/24 08:00 Pulse Ox 95 07/27/24 08:00 FiO2 Intake & Output 07/26/24 07/27/24 07/27/24 18:59 06:59 18:59 Intake Total 1375 Output Total 1 Balance 1375 -1 Weight 58.967 kg Intake: Intake, IV Titration 725 Amount Sodium Chloride 0.9% 1, 475 000 ml @ 75 mls/hr IV . [id number] [facility] Rx#:[id number] cefTRIAXone 1 gm In 50 Sodium Chloride 0.9% 50 ml @ 100 mls/hr IVPB Q24HR [facility] Rx#:[id number] metroNIDAZOLE-NS PMX 500 200 mg In Saline 1 100ml.bag @ 100 mls/hr IVPB Q8HR [facility] Rx#:[id number] Oral 650 Output: Stool 1 Other: Voiding Method Toilet Toilet Urinal Urinal # Voids 2 4 # Bowel Movements 3 1 - Labs CBC & Chem 7: 07/27/24 09:10 07/27/24 09:10 Labs: Abnormal Lab Results - Last 24 Hours (Table) 07/27/24 07/27/24 07/27/24 Range/Units 09:10 09:10 09:10 RBC 2.94 L (4.30-5.90) m/uL Hgb 9.0 L (13.0-17.5) gm/dL Hct 28.7 L (39.0-53.0) % Potassium 3.1 L (3.5-5.1) mmol/L Chloride 121 H (98-107) mmol/L Carbon Dioxide 16 L (22-30) mmol/L Glucose 158 H (74-99) mg/dL Calcium 8.2 L (8.4-10.2) mg/dL Magnesium 2.4 H (1.6-2.3) mg/dL
[2024-07-27] MEDS: POTASSIUM CHLORIDE ER 20 MEQ TAB.ER PO SCH (16:37)
[2024-07-28 10:22] LABS: HCT 23.5 % (39.6-50.0); HGB 7.8 g/dL (13.0-17.0); MCH 31.1 pg (27.0-32.0); MCHC 33.2 g/dL (32.0-37.0); MCV 93.6 FL (80.0-97.0); Mean Platelet Volume 9.7 FL (9.5-12.2); NRBC Per 100 WBC 0 X 10*3/uL (0.00-0.01); Platelet Count 330 X 10*3/uL (140-440); RBC 2.51 X 10*6/uL (4.40-5.60); RDW 13.7 % (11.5-14.5); WBC 7.19 X 10*3/uL (4.50-10.00)
[2024-07-28 10:36] LABS: BUN/Creat Ratio 14.64 Ratio (12.00-20.00); Blood Urea Nitrogen 16.1 mg/dL (9.0-27.0); Carbon Dioxide 16.9 mmol/L (21.6-31.8); Chloride 122 mmol/L (96-109); Glucose 130 mg/dL (70-110); Potassium 3.8 mmol/L (3.5-5.5); Sodium 149 mmol/L (135-145)
--- NOTE | 2024-07-28 11:34 | P.PN ---
Progress Note - Text Progress Note Date: 07/28/24 CHIEF COMPLAINT: Abdominal pain HISTORY OF PRESENT ILLNESS: Patient had bowel movements. Patient reports overall feeling better. His abdominal pain is resolved and he is hungry. PHYSICAL EXAM: VITAL SIGNS: Reviewed. GENERAL: no acute distress. ABDOMEN: distended. Tenderness with palpation of the lower left side of the abdomen and suprapubic area NEUROLOGIC: Alert and oriented. Cranial nerves II through XII grossly intact. ASSESSMENT: 1. Ileus 2. Constipation 3. Possible colitis. Mild diffuse wall thickening of the mid sigmoid colon noted on first CAT scan now resolved on repeat CAT scan 4. Leukocytosis improving PLAN: -Advanced to Full Liquid Diet -Encourage patient to ambulate -Continue to monitor closely -Continue antibiotics -Encourage patient to ambulate -Will place Plavix on hold in case of any surgical intervention Darius Paniagua DO [facility] [phone]
--- NOTE | 2024-07-28 14:08 | P.PN ---
Subjective Progress Note Date: 07/28/24 This is an 83-year-old gentleman admitted with abdominal pain over the last month accompanied by nausea and vomiting presented to the ER with diffuse abdominal pain in a patient with carcinoid syndrome on Sandostatin outpatient-on hold CT of abdomen pelvis suggested sigmoid colitis. Repeat CT of abdomen pelvis reported increasing air-filled cecum, prominent bowel loops. Maintained on IV fluid hydration, pain management ,unable to tolerate NG tube, positive nausea minimal emesis. Positive abdominal pain throughout. Maintained on Flagyl, ceftriaxone, IV fluids. Afebrile. Sodium 133, bicarb 19, BUN 18, creatinine 1.42. 07/24/2024 maintained on ceftriaxone, Flagyl and IV fluid hydration .afebrile, yesterday WBCI ncreased to 13.85 with improvement in renal function. a.m. labs pending. nausea and vomiting this morning, subsided after having nonpainful ,small bowel movement. continues to have abdominal pain worse on the right lower quadrant. denies chest pain, palpitations or shortness of breath. Maintaining O2 sats in the mid 90s on room air. Denies cough, congestion. 07/25/2024 abdominal x-ray completed yesterday reported large amount of stool throughout the bowel with gaseous dilation and air-fluid levels of the small bowel compatible with ileus .reports minimal diarrhea yesterday, positive bowel movement on lactulose. Continues to have abdominal pain rated at a 5 out of 10 greatest on the left lower quadrant. Tmax 99, WBC increased to 16.1. Mild tachycardia. Hemoglobin 10.3, platelets 260. BMP pending. ambulated this morning with assistance in the hallway, tolerated exertion well. 07/26/24 lactulose increased yesterday in addition to the Dulcolax suppository as per general surgery. Reports bowel movement last night. Continues to have significant pain especially in the left lower quadrant. Reports no appetite, positive nausea and vomiting yesterday-none today. Maintained on ceftriaxone and IV fluid hydration.WBC has normalized, afebrile, mild tachycardia. Denies chest pain, palpitations or shortness of breath. Maintaining O2 sats in the 90s on room air. Hemoglobin 8.9, platelets 310 ,renal function stable. 07/27/2024 continues on his lactulose, sipping his GoLytely, 5 bowel movements reported between last night and this morning. Potassium 3.1, supplementation ordered .Creatinine decreased 1.12. continues to have abdominal pain, denies nausea and vomiting. Ambulating, tolerating exertion well. Maintained on ceftriaxone, Flagyl and IV fluids denies chills, sweats. Afebrile, normal WBC 6.7. Hemoglobin 9, platelets 367. 07/28. Patient seen and examined. Denies abdominal pain. Diet advanced to full liquid. Vital signs stable REVIEW OF SYSTEMS: CONSTITUTIONAL: No fever, no malaise,. CARDIOVASCULAR: No chest pain, no palpitations, no syncope. PULMONARY: No shortness of breath, no cough, GASTROINTESTINAL: As mentioned above NEUROLOGICAL: No headaches, no weakness, PHYSICAL EXAMINATION: GENERAL: The patient is alert and oriented x3, not in any acute distress. Well developed, well nourished. HEENT: Pupils are round and equally reacting to light. EOMI. No scleral icterus. No conjunctival pallor. Normocephalic, atraumatic. No pharyngeal erythema. No thyromegaly. CARDIOVASCULAR: S1 and S2 present. No murmurs, rubs, or gallops. PULMONARY: Chest is clear to auscultation, no wheezing or crackles. ABDOMEN: Soft, nontender, nondistended, normoactive bowel sounds. No palpable organomegaly. MUSCULOSKELETAL: No joint swelling or deformity. EXTREMITIES: No cyanosis, clubbing, or pedal edema. NEUROLOGICAL: Gross neurological examination did not reveal any focal deficits. SKIN: No rashes. Assessment and plan Abdominal pain,possible ileus, possible acute sigmoid colitis-repeat CT reported improved appearance of the sigmoid wall without thickening or inflammatory goldstein ges Constipation Leukocytosis Hyponatremia, resolved Acute kidney injury CAD, history of CABG Hypertenion History of TIA Major depression Carcinoid syndrome Monitor vital signs Monitor CBC Monitor CMP Continue IV Rocephin and Flagyl Continue lactulose Advance diet to full liquid Continue IV fluid Surgery following Labs and medication were reviewed.. Continue same treatment. Continue with symptomatic treatment. Resume home medication. Monitor labs and vitals. DVT and GI prophylaxis. Further recommendations as per clinical course of the patient Dictation was produced using [employer] dictation software. please excuse any grammatical, word or spelling errors. Objective - Vital Signs Vital signs: Vital Signs Temp 98.3 F 07/28/24 07:00 Pulse 93 07/28/24 07:00 Resp 17 07/28/24 07:00 BP 165/80 07/28/24 07:00 Pulse Ox 96 07/28/24 07:00 FiO2 Intake & Output 07/27/24 07/28/24 07/28/24 18:59 06:59 18:59 Output Total 1 Balance -1 Weight 58.967 kg Output: Stool 1 Other: Voiding Method Toilet Bedside Commode Diaper # Voids 4 1 # Bowel Movements 8 1 - Labs CBC & Chem 7: 07/28/24 03:18 07/28/24 03:18 Labs: Abnormal Lab Results - Last 24 Hours (Table) 07/27/24 07/28/24 07/28/24 Range/Units 09:10 03:18 03:18 RBC 2.51 L (4.40-5.60) X 10*6/uL Hgb 7.8 L (13.0-17.0) g/dL Hct 23.5 L (39.6-50.0) % Sodium 149 H (135-145) mmol/L Chloride 122 H (96-109) mmol/L Carbon Dioxide 16.9 L (21.6-31.8) mmol/L Glucose 130 H (70-110) mg/dL Calcium 8.0 L (8.7-10.3) mg/dL Magnesium 2.4 H (1.6-2.3) mg/dL
--- NOTE | 2024-07-29 05:05 | P.PN ---
Progress Note - Text Progress Note Date: 07/29/24 CHIEF COMPLAINT: Abdominal pain HISTORY OF PRESENT ILLNESS: Patient had bowel movements. Patient reports overall feeling better. His abdominal pain is resolved and he is hungry. PHYSICAL EXAM: VITAL SIGNS: Reviewed. GENERAL: no acute distress. ABDOMEN: distended. Tenderness with palpation of the lower left side of the abdomen and suprapubic area NEUROLOGIC: Alert and oriented. Cranial nerves II through XII grossly intact. ASSESSMENT: 1. Ileus 2. Constipation 3. Possible colitis. Mild diffuse wall thickening of the mid sigmoid colon noted on first CAT scan now resolved on repeat CAT scan 4. Leukocytosis improving PLAN: -Advanced to Heart Healthy Diet this AM -Encourage patient to ambulate -Continue to monitor closely -Continue antibiotics -Encourage patient to ambulate -Ok to restart Plavix Darius Paniagua DO [facility] [phone]
--- NOTE | 2024-07-29 12:46 | P.PN ---
Subjective Progress Note Date: 07/29/24 This is an 83-year-old gentleman admitted with abdominal pain over the last month accompanied by nausea and vomiting presented to the ER with diffuse abdominal pain in a patient with carcinoid syndrome on Sandostatin outpatient-on hold CT of abdomen pelvis suggested sigmoid colitis. Repeat CT of abdomen pelvis reported increasing air-filled cecum, prominent bowel loops. Maintained on IV fluid hydration, pain management ,unable to tolerate NG tube, positive nausea minimal emesis. Positive abdominal pain throughout. Maintained on Flagyl, ceftriaxone, IV fluids. Afebrile. Sodium 133, bicarb 19, BUN 18, creatinine 1.42. 07/24/2024 maintained on ceftriaxone, Flagyl and IV fluid hydration .afebrile, yesterday WBCI ncreased to 13.85 with improvement in renal function. a.m. labs pending. nausea and vomiting this morning, subsided after having nonpainful ,small bowel movement. continues to have abdominal pain worse on the right lower quadrant. denies chest pain, palpitations or shortness of breath. Maintaining O2 sats in the mid 90s on room air. Denies cough, congestion. 07/25/2024 abdominal x-ray completed yesterday reported large amount of stool throughout the bowel with gaseous dilation and air-fluid levels of the small bowel compatible with ileus .reports minimal diarrhea yesterday, positive bowel movement on lactulose. Continues to have abdominal pain rated at a 5 out of 10 greatest on the left lower quadrant. Tmax 99, WBC increased to 16.1. Mild tachycardia. Hemoglobin 10.3, platelets 260. BMP pending. ambulated this morning with assistance in the hallway, tolerated exertion well. 07/26/24 lactulose increased yesterday in addition to the Dulcolax suppository as per general surgery. Reports bowel movement last night. Continues to have significant pain especially in the left lower quadrant. Reports no appetite, positive nausea and vomiting yesterday-none today. Maintained on ceftriaxone and IV fluid hydration.WBC has normalized, afebrile, mild tachycardia. Denies chest pain, palpitations or shortness of breath. Maintaining O2 sats in the 90s on room air. Hemoglobin 8.9, platelets 310 ,renal function stable. 07/27/2024 continues on his lactulose, sipping his GoLytely, 5 bowel movements reported between last night and this morning. Potassium 3.1, supplementation ordered .Creatinine decreased 1.12. continues to have abdominal pain, denies nausea and vomiting. Ambulating, tolerating exertion well. Maintained on ceftriaxone, Flagyl and IV fluids denies chills, sweats. Afebrile, normal WBC 6.7. Hemoglobin 9, platelets 367. 07/28. Patient seen and examined. Denies abdominal pain. Diet advanced to full liquid. Vital signs stable 07/29. Patient seen and examined. States he feels much better. Diet advanced to regular REVIEW OF SYSTEMS: CONSTITUTIONAL: No fever, no malaise,. CARDIOVASCULAR: No chest pain, no palpitations, no syncope. PULMONARY: No shortness of breath, no cough, GASTROINTESTINAL: As mentioned above NEUROLOGICAL: No headaches, no weakness, PHYSICAL EXAMINATION: GENERAL: The patient is alert and oriented x3, not in any acute distress. Well developed, well nourished. HEENT: Pupils are round and equally reacting to light. EOMI. No scleral icterus. No conjunctival pallor. Normocephalic, atraumatic. No pharyngeal erythema. No thyromegaly. CARDIOVASCULAR: S1 and S2 present. No murmurs, rubs, or gallops. PULMONARY: Chest is clear to auscultation, no wheezing or crackles. ABDOMEN: Soft, nontender, nondistended, normoactive bowel sounds. No palpable organomegaly. MUSCULOSKELETAL: No joint swelling or deformity. EXTREMITIES: No cyanosis, clubbing, or pedal edema. NEUROLOGICAL: Gross neurological examination did not reveal any focal deficits. SKIN: No rashes. Assessment and plan Abdominal pain,possible ileus, possible acute sigmoid colitis-repeat CT reported improved appearance of the sigmoid wall without thickening or inflammatory changes Constipation Leukocytosis Hyponatremia, resolved Acute kidney injury CAD, history of CABG Hypertenion History of TIA Major depression Carcinoid syndrome Monitor vital signs Monitor CBC Monitor CMP Continue IV Rocephin and Flagyl Continue lactulose Advance diet to regular DC fluids Surgery following, recommended resuming Plavix Labs and medication were reviewed.. Continue same treatment. Continue with symptomatic treatment. Resume home medication. Monitor labs and vitals. DVT and GI prophylaxis. Further recommendations as per clinical course of the patient Dictation was produced using [employer] dictation software. please excuse any grammatical, word or spelling errors. Objective - Vital Signs Vital signs: Vital Signs Temp 98.3 F 07/29/24 07:10 Pulse 79 07/29/24 07:10 Resp 17 07/29/24 07:10 BP 154/75 07/29/24 07:10 Pulse Ox 98 07/29/24 07:10 FiO2 Intake & Output 07/28/24 07/29/24 07/29/24 18:59 06:59 18:59 Intake Total 700 1080 200 Output Total 200 Balance 700 880 200 Intake: Oral 700 1080 200 Output: Urine 200 Other: # Voids 3 2 # Bowel Movements 3 2 - Labs CBC & Chem 7: 07/28/24 03:18 07/28/24 03:18
[2024-07-29] MEDS: CLOPIDOGREL 75 MG TAB PO SCH (12:52)
[2024-07-30 07:43] VITALS: BP 139/85; PULSE 90; RESP 17; TEMP 98
[2024-07-30 08:31] LABS: Basophils # (A) 0.05 X 10*3/uL (0.00-0.10); Basophils % (A) 0.7 %; Eosinophils # (A) 0.33 X 10*3/uL (0.04-0.35); Eosinophils % (A) 4.5 %; HCT 24.1 % (39.6-50.0); HGB 8.2 g/dL (13.0-17.0); Lymphocytes # (A) 1.92 X 10*3/uL (0.90-5.00); Lymphocytes % (A) 26.3 %; MCH 31.4 pg (27.0-32.0); MCV 92.3 FL (80.0-97.0); Mean Platelet Volume 9.5 FL (9.5-12.2); Monocytes # (A) 0.42 X 10*3/uL (0.20-1.00); Monocytes % (A) 5.8 %; NRBC Per 100 WBC 0 X 10*3/uL (0.00-0.01); Neutrophils # (A) 4.39 X 10*3/uL (1.80-7.70); Neutrophils % (A) 60.1 %; Platelet Count 337 X 10*3/uL (140-440); RBC 2.61 X 10*6/uL (4.40-5.60); RDW 13.5 % (11.5-14.5)
[2024-07-30 09:07] LABS: ALT 8 U/L (10-49); AST 21 U/L (14-35); Albumin 2.7 g/dL (3.8-4.9); Albumin/Globulin Ratio 1.59 Ratio (1.60-3.17); Alkaline Phosphatase 55 U/L (41-126); BUN/Creat Ratio 12.45 Ratio (12.00-20.00); Blood Urea Nitrogen 13.7 mg/dL (9.0-27.0); Calcium 7.6 mg/dL (8.7-10.3); Carbon Dioxide 16.1 mmol/L (21.6-31.8); Chloride 110 mmol/L (96-109); Globulin 1.7 g/dL (1.6-3.3); Glucose 136 mg/dL (70-110); Potassium 3.3 mmol/L (3.5-5.5); Sodium 139 mmol/L (135-145); Total Bilirubin <0.2 mg/dL (0.3-1.2); Total Protein 4.4 g/dL (6.2-8.2)
--- NOTE | 2024-07-30 09:23 | P.DS ---
Providers Date of admission: 07/23/24 10:38 Expected date of discharge: 07/30/24 Attending physician: Kenneth Luciano MD Consults: 07/21/24 15:12 Consult Physician Routine Consulting Provider: Darius Paniagua Consult Reason/Comments: abp, please review ct Do you want consulting provider notified?: Yes Primary care physician: Kenneth Luciano MD Hospital Course: This is an 83-year-old gentleman admitted with abdominal pain over the last month accompanied by nausea and vomiting presented to the ER with diffuse abdominal pain in a patient with carcinoid syndrome on Sandostatin outpatient-on hold CT of abdomen pelvis suggested sigmoid colitis. Repeat CT of abdomen pelvis reported increasing air-filled cecum, prominent bowel loops. Maintained on IV fluid hydration, pain management ,unable to tolerate NG tube, positive nausea minimal emesis. Positive abdominal pain throughout. Maintained on Flagyl, ceftriaxone, IV fluids. Afebrile. Sodium 133, bicarb 19, BUN 18, creatinine 1.42. 07/24/2024 maintained on ceftriaxone, Flagyl and IV fluid hydration .afebrile, yesterday WBCI ncreased to 13.85 with improvement in renal function. a.m. labs pending. nausea and vomiting this morning, subsided after having nonpainful ,small bowel movement. continues to have abdominal pain worse on the right lower quadrant. denies chest pain, palpitations or shortness of breath. Maintaining O2 sats in the mid 90s on room air. Denies cough, congestion. 07/25/2024 abdominal x-ray completed yesterday reported large amount of stool throughout the bowel with gaseous dilation and air-fluid levels of the small bowel compatible with ileus .reports minimal diarrhea yesterday, positive bowel movement on lactulose. Continues to have abdominal pain rated at a 5 out of 10 greatest on the left lower quadrant. Tmax 99, WBC increased to 16.1. Mild tachycardia. Hemoglobin 10.3, platelets 260. BMP pending. ambulated this morning with assistance in the hallway, tolerated exertion well. 07/26/24 lactulose increased yesterday in addition to the Dulcolax suppository as per general surgery. Reports bowel movement last night. Continues to have significant pain especially in the left lower quadrant. Reports no appetite, positive nausea and vomiting yesterday-none today. Maintained on ceftriaxone and IV fluid hydration.WBC has normalized, afebrile, mild tachycardia. Denies chest pain, palpitations or shortness of breath. Maintaining O2 sats in the 90s on room air. Hemoglobin 8.9, platelets 310 ,renal function stable. 07/27/2024 continues on his lactulose, sipping his GoLytely, 5 bowel movements reported between last night and this morning. Potassium 3.1, supplementation ordered .Creatinine decreased 1.12. continues to have abdominal pain, denies nausea and vomiting. Ambulating, tolerating exertion well. Maintained on ceftriaxone, Flagyl and IV fluids denies chills, sweats. Afebrile, normal WBC 6.7. Hemoglobin 9, platelets 367. 07/28. Patient seen and examined. Denies abdominal pain. Diet advanced to full liquid. Vital signs stable 07/29. Patient seen and examined. States he feels much better. Diet advanced to regular 07/30. On day of discharge pt denies abdominal pain, nausea, vomiting, constipation. He is tolerating regular diet. He is discharged in stable condition and recommended to follow up with his PCP and continue with lactulose. Patient Condition at Discharge: Stable Plan - Discharge Summary Discharge Rx Participant: Yes New Discharge Prescriptions: New Lactulose [Cephulac] 20 gm PO DAILY #1000 ml Continue Aspirin 81 mg PO DAILY #21 tab Famotidine 40 mg PO DAILY Losartan [Cozaar] 25 mg PO DAILY QUEtiapine [SEROquel] 400 mg PO HS rOPINIRole HCL [Requip] 1 mg PO HS Clopidogrel [Plavix] 75 mg PO DAILY 30 Days #30 tab Erivedge 150mg 150 mg PO HS Octreotide Lar [SandoSTATIN LAR] 40 mg SQ Q28D Ondansetron [Zofran] 4 mg PO Q4H PRN PRN Reason: Nausea And Vomiting Discharge Medication List Losartan [Cozaar] 25 mg PO DAILY 11/18/23 [History] QUEtiapine [SEROquel] 400 mg PO HS 11/18/23 [History] rOPINIRole HCL [Requip] 1 mg PO HS 11/18/23 [History] Aspirin 81 mg PO DAILY #21 tab 11/20/23 [Rx] Clopidogrel [Plavix] 75 mg PO DAILY 30 Days #30 tab 11/20/23 [Rx] Erivedge 150mg 150 mg PO HS 07/21/24 [History] Famotidine 40 mg PO DAILY 07/21/24 [History] Octreotide Lar [SandoSTATIN LAR] 40 mg SQ Q28D 07/21/24 [History] Ondansetron [Zofran] 4 mg PO Q4H PRN 07/21/24 [History] Lactulose [Cephulac] 20 gm PO DAILY #1000 ml 07/30/24 [Rx] Follow up Appointment(s)/Referral(s): Kenneth Luciano MD [Primary Care Provider] - 1-2 days [facility], [NON-STAFF] - As Needed Discharge Disposition: HOME SELF-CARE
--- NOTE | 2024-07-30 11:46 | P.PN ---
Subjective Progress Note Date: 07/30/24 CHIEF COMPLAINT: Abdominal pain HISTORY OF PRESENT ILLNESS: Patient is feeling better. He is sitting at bedside chair. He is having bowel movements. He is tolerating regular diet. Abdominal pain has improved. He is scheduled for discharge today. Afebrile. WBC 7.3 Hgb 8.2 potassium 3.3 PHYSICAL EXAM: VITAL SIGNS: Reviewed. GENERAL: no acute distress. ABDOMEN: Soft. Nontender nondistended NEUROLOGIC: Alert and oriented. Cranial nerves II through XII grossly intact. ASSESSMENT: 1. Ileus improved 2. Constipation improved 3. Possible colitis. Mild diffuse wall thickening of the mid sigmoid colon noted on first CAT scan now resolved on repeat CAT scan 4. Leukocytosis resolved 5. Hypokalemia PLAN: -Patient is stable for discharge from surgical standpoint -Recommend continue a good bowel prep -Replace potassium prior to discharge Physician [employer] Sales[employer] note has been reviewed by physician. Signing provider agrees with the documented findings, assessment, and plan of care. Attestation Patient seen and examined at bedside. Abdominal pain has completely resolved. Having bowel movements. Ileus and constipation have resolved. No plan for surgical intervention. Patient surgically stable for discharge. Tulio Jauregui DO Objective - Vital Signs Vital signs: Vital Signs Temp 98.0 F 07/30/24 07:00 Pulse 90 07/30/24 07:00 Resp 17 07/30/24 07:00 BP 139/85 07/30/24 07:00 Pulse Ox 97 07/30/24 07:00 FiO2 Intake & Output 07/29/24 07/30/24 07/30/24 18:59 06:59 18:59 Intake Total 600 1080 Output Total 200 Balance 400 1080 Intake: Oral 600 1080 Output: Urine 200 Other: Voiding Method Toilet Bedside Commode Diaper # Voids 2 3 - Labs CBC & Chem 7: 07/30/24 02:25 07/30/24 02:25 Labs: Abnormal Lab Results - Last 24 Hours (Table) 07/30/24 07/30/24 Range/Units 02:25 02:25 RBC 2.61 L (4.40-5.60) X 10*6/uL Hgb 8.2 L (13.0-17.0) g/dL Hct 24.1 L (39.6-50.0) % Immature Gran # 0.19 H (0.00-0.04) X 10*3/uL Potassium 3.3 L (3.5-5.5) mmol/L Chloride 110 H (96-109) mmol/L Carbon Dioxide 16.1 L (21.6-31.8) mmol/L Anion Gap 12.90 H (4.00-12.00) mmol/L Glucose 136 H (70-110) mg/dL Calcium 7.6 L (8.7-10.3) mg/dL Total Bilirubin <0.2 L (0.3-1.2) mg/dL ALT 8 L (10-49) U/L Total Protein 4.4 L (6.2-8.2) g/dL Albumin 2.7 L (3.8-4.9) g/dL Albumin/Globulin Ratio 1.59 L (1.60-3.17) Ratio
[2024-07-30] MEDS: POTASSIUM CHLORIDE ER 20 MEQ TAB.ER PO STA (11:52)
== END 2024-07-30 12:10 | disposition home or self-care (01) | DRG 389 ==
LOC: EC 12:18 → 4SSUR 15:12 → OBSVTOIN 07-23 10:38 → 4SSUR 07-24 21:08
PROVIDERS: ADMIT Family Medicine; ATTEND Family Medicine
PROC: 05HY33Z Insertion of Infusion Device into Upper Vein, Percutaneous Approach (ICD-10-PCS; principal; 2024-07-23 19:05)
DX: K56.7 Ileus, unspecified (principal); E34.00 Carcinoid syndrome, unspecified; E87.1 Hypo-osmolality and hyponatremia; N17.9 Acute kidney failure, unspecified; E78.5 Hyperlipidemia, unspecified; E87.6 Hypokalemia; F17.290 Nicotine dependence, other tobacco product, uncomplicated; M19.90 Unspecified osteoarthritis, unspecified site; F32.9 Major depressive disorder, single episode, unspecified; D72.829 Elevated white blood cell count, unspecified; I10 Essential (primary) hypertension; I25.10 Atherosclerotic heart disease of native coronary artery without angina pectoris; K44.9 Diaphragmatic hernia without obstruction or gangrene; K52.9 Noninfective gastroenteritis and colitis, unspecified; Z79.02 Long term (current) use of antithrombotics/antiplatelets; Z79.82 Long term (current) use of aspirin; Z79.899 Other long term (current) drug therapy; Z85.038 Personal history of other malignant neoplasm of large intestine; Z85.46 Personal history of malignant neoplasm of prostate; Z86.73 Personal history of transient ischemic attack (TIA), and cerebral infarction without residual deficits; Z95.1 Presence of aortocoronary bypass graft; Z85.828 Personal history of other malignant neoplasm of skin; Z96.0 Presence of urogenital implants
CPT/HCPCS: 36410; 36415; 74019; 74177; 76937; 80048; 80053; 81003; 82150; 83605; 83690; 83735; 85025; 85027; 85610; 85730; 96361; 96374; 96375; 96376; 99285

== ENCOUNTER 2024-08-21 13:48 | Emergency (ER) | payer MEDICARE, BC ==
[2024-08-21 13:55] VITALS: RESP 18
--- NOTE | 2024-08-21 14:22 | ED ---
Fall HPI - General Chief Complaint: Fall Stated Complaint: Fall-L hip injury Time Seen by Provider: 08/21/24 14:20 Source: patient, EMS, RN notes reviewed Mode of arrival: EMS Limitations: no limitations - History of Present Illness Initial Comments: 83-year-old male presenting to the ER with a chief complaint of left hip pain. Patient states he tripped while going to the bathroom Tuesday morning on an extension cord causing him to fall onto his left hip. Patient states he was able to get up by himself but since has been experiencing pain to his left posterior thigh since incident. He has been able to walk. He denies head injury, loss of consciousness. Patient does take Plavix. Patient denies any paresthesias to the left lower extremity. Patient has been taking [id number] Tylenol for pain relief. Patient also is reporting pain that radiates to her is left lower back and buttock. He denies any saddle paresthesias, bowel or bladder incontinence, fevers. No other complaints. - Related Data Home Medications Medication Instructions Recorded Confirmed Losartan [Cozaar] 25 mg PO DAILY 11/18/23 07/21/24 QUEtiapine [SEROquel] 400 mg PO HS 11/18/23 07/21/24 rOPINIRole HCL [Requip] 1 mg PO HS 11/18/23 07/21/24 Erivedge 150mg 150 mg PO HS 07/21/24 07/21/24 Famotidine 40 mg PO DAILY 07/21/24 07/21/24 Octreotide Lar [SandoSTATIN LAR] 40 mg SQ Q28D 07/21/24 07/21/24 Ondansetron [Zofran] 4 mg PO Q4H PRN 07/21/24 07/21/24 Previous Rx's Medication Instructions Recorded Aspirin 81 mg PO DAILY #21 tab 11/20/23 Clopidogrel [Plavix] 75 mg PO DAILY 30 Days #30 tab 11/20/23 Lactulose [Cephulac] 20 gm PO DAILY #1000 ml 07/30/24 Allergies Allergy/AdvReac Type Severity Reaction Status Date / Time No Known Allergies Allergy Verified 08/21/24 13:54 Review of Systems ROS Statement: Those systems with pertinent positive or pertinent negative responses have been documented in the HPI. ROS Other: All systems not noted in ROS Statement are negative. 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 Past Anesthesia/Blood Transfusion Reactions: No Reported Reaction Past Psychological History: No Psychological Hx Reported Smoking Status: Former smoker, Light tobacco smoker Past Alcohol Use History: None Reported Past Drug Use History: None Reported - Past Family History Father Family Medical History: Myocardial Infarction ([place]) Additional Family Medical History / Comment(s): Pt did not know his father but they were told he of a [place] at the age of 42 yrs. Mother Family Medical History: Vascular Disorder Additional Family Medical History / Comment(s): Mother at age 68yrs, pt was told possible d/t ruptured aneurysm in her neck. General Exam General appearance: alert, in no apparent distress Head exam: Present: atraumatic, normocephalic, normal inspection Respiratory exam: Present: normal lung sounds bilaterally. Absent: respiratory distress, wheezes, rales, rhonchi, stridor Cardiovascular Exam: Present: regular rate, normal rhythm, normal heart sounds. Absent: systolic murmur, diastolic murmur, rubs, gallop, clicks Extremities exam: Present: full ROM, tenderness (Left posterior thigh. There is a small contusion to left flank), other (2+ left dorsalis pedis and posterior tibialis pulses. 5+ bilateral dorsiflexion and plantarflexion. Straight leg raise negative.) Back exam: Present: normal inspection Neurological exam: Present: alert, oriented X3, CN II-XII intact Skin exam: Present: warm, dry, intact, normal color. Absent: rash Course Vital Signs 08/21/24 13:50 Temperature 97.6 F Pulse Rate 83 Respiratory 18 Rate Blood Pressure 115/77 O2 Sat by Pulse 99 Oximetry Medical Decision Making - Medical Decision Making Was pt. sent in by a medical professional or institution (, PA, RELEASE OF INFORMATION CLERK, urgent care, hospital, or halfway...) When possible be specific @ -[No] Did you speak to anyone other than the patient for history (EMS, parent, family, police, friend...)? What history was obtained from this source @ -[No] Did you review nursing and triage notes (agree or disagree)? Why? @ -[I reviewed and agree with nursing and triage notes] Were old charts reviewed (outside hosp., previous admission, EMS record, old EKG, old radiological studies, urgent care reports/EKG's, halfway records)? Report findings @ -[No old charts were reviewed] Differential Diagnosis (chest pain, altered mental status, abdominal pain women, abdominal pain men, vaginal bleeding, weakness, fever, dyspnea, syncope, headache, dizziness, GI bleed, back pain, seizure, CVA, palpatations, mental health, musculoskeletal)? @ -Differential Musculoskeletal: Muscular strain, contusion, ligament sprain, fracture, arthritis, septic arthritis, bursitis, cellulitis, muscle spasm, nerve compression, DVT, arterial occlusion, herpes zoster, electrolyte abnormality, tumor.... This is not meant to be in all inclusive list EKG interpreted by me (3pts min.). @ -[None done] X-rays interpreted by me (1pt min.). @ -[None done] CT interpreted by me (1pt min.). @ -[None done] U/S interpreted by me (1pt. min.). @ -[None done] What testing was considered but not performed or refused? (CT, X-rays, U/S, labs)? Why? @ -[None] What meds were considered but not given or refused? Why? @ -[None] Did you discuss the management of the patient with other professionals (professionals i.e. , PA, RELEASE OF INFORMATION CLERK, lab, RT, psych nurse, director social welfare, custom tailor, teacher, inshore undersea warfare officer, rn case manager)? Give summary @ -[No] Was smoking cessation discussed for >3mins.? @ -[No] Was critical care preformed (if so, how long)? @ -[No] Were there social determinants of health that impacted care today? How? (Homelessness, low income, unemployed, alcoholism, drug addiction, transportation, low edu. Level, literacy, decrease access to med. care, penitentiary, rehab)? @ -[No] Was there de-escalation of care discussed even if they declined (Discuss DNR or withdrawal of care, Hospice)? DNR status @ -[No] What co-morbidities impacted this encounter? (DM, HTN, Smoking, COPD, CAD, Cancer, CVA, ARF, Chemo, Hep., AIDS, mental health diagnosis, sleep apnea, morbid obesity)? @ -[None] Was patient admitted / discharged? Hospital course, mention meds given and route, prescriptions, significant lab abnormalities, going to OR and other pertinent info. @ -[hospital course] Undiagnosed new problem with uncertain prognosis? @ -[No] Drug Therapy requiring intensive monitoring for toxicity (Heparin, Nitro, Insuli n, Cardizem)? @ -[No] Were any procedures done? @ -[No] Diagnosis/symptom? @ -[default] Acute, or Chronic, or Acute on Chronic? @ -[default] Uncomplicated (without systemic symptoms) or Complicated (systemic symptoms)? @ -[default] Side effects of treatment? @ -[No] Exacerbation, Progression, or Severe Exacerbation? @ -[No] Poses a threat to life or bodily function? How? (Chest pain, [place], [place], pneumonia, PE, COPD, DKA, ARF, appy, cholecystitis, CVA, Diverticulitis, Homicidal, Suicidal, threat to staff... and all critical care pts) @ -[No] Disposition Clinical Impression: Contusion of leg Disposition: HOME SELF-CARE Condition: Stable Instructions (If sedation given, give patient instructions): Fall Prevention for Older Adults (ED) Additional Instructions: Follow-up with PCP in the next 1 to 2 days. Return to the ER for any new or worsening concerns. Is patient prescribed a controlled substance at d/c from ED?: No Referrals: Kenneth Luciano MD [Primary Care Provider] - 1-2 days Time of Disposition: 15:42
--- NOTE | 2024-08-21 15:20 | XR ---
EXAMINATION TYPE: XR Hip LT and AP Pelvis, XR lumbar spine 2 or 3V DATE OF EXAM: 08/21/2024 3:11 PM COMPARISON: Previous pelvis radiograph 826 and 23. CLINICAL INDICATION: Male, 83 years old with history of pain s/p fall 3 days ago; [facility] TECHNIQUE: XR Hip LT and AP Pelvis, XR lumbar spine 2 or 3V; hip was examined in the frontal and late ral projections and a AP pelvis. FINDINGS: Left hip: Surgical clips overlying the prostate gland. Penile prosthesis noted in place. No acute fracture or d islocation. Moderate degenerative arthritis of the left hip. No focal osseous erosion or aggressive p eriosteal reaction. Lumbosacral spine: No acute fracture or traumatic subluxation. Multilevel intervertebral disc space loss and anterior os teophyte formation. Multilevel facet arthropathy, most pronounced at L4-5 and L5-S1. Surgical clips i n the right upper quadrant suggesting previous cholecystectomy. Nonspecific bowel gas pattern with ga s-filled left lower quadrant small bowel loops partially visualized. IMPRESSION: Left hip: No acute fracture dislocation. Lumbosacral spine: No acute fracture or dislocation. [facility], Workstation: [employer], 08/21/2024 3:17 PM
[2024-08-21 16:06] VITALS: BP 112/89; PULSE 81; TEMP 98.1
== END 2024-08-21 16:06 | disposition home or self-care (01) ==
LOC: EC 13:48
DX: S70.12XA Contusion of left thigh, initial encounter (principal); F17.200 Nicotine dependence, unspecified, uncomplicated; W01.0XXA Fall on same level from slipping, tripping and stumbling without subsequent striking against object, initial encounter
CPT/HCPCS: 72100; 73502; 99283

== ENCOUNTER 2024-09-24 18:42 | Emergency (ER) | payer MEDICARE, BC ==
[2024-09-24 18:59] VITALS: RESP 19
--- NOTE | 2024-09-24 19:12 | ED ---
Abdominal Pain HPI - General Chief Complaint: Abdominal Pain Stated Complaint: ABDOMINAL PAIN Time Seen by Provider: 09/24/24 18:58 Source: patient, EMS, RN notes reviewed, old records reviewed Mode of arrival: EMS Limitations: no limitations - History of Present Illness Initial Comments: This is a 83 male to the ED co abdominal pain. MD Complaint: abdominal pain -: days(s) Location: diffuse, epigastric, suprapubic Radiation: epigastric, suprapubic Migration to: no migration Severity: moderate Severity scale (1-10): 6 Quality: fullness Consistency: constant Improves With: nothing Worsens With: nothing Associated Symptoms: denies other symptoms, nausea, vomiting Treatments Prior to Arrival: other (0) - Related Data Home Medications Medication Instructions Recorded Confirmed Losartan [Cozaar] 25 mg PO DAILY 11/18/23 07/21/24 QUEtiapine [SEROquel] 400 mg PO HS 11/18/23 07/21/24 rOPINIRole HCL [Requip] 1 mg PO HS 11/18/23 07/21/24 Erivedge 150mg 150 mg PO HS 07/21/24 07/21/24 Famotidine 40 mg PO DAILY 07/21/24 07/21/24 Octreotide Lar [SandoSTATIN LAR] 40 mg SQ Q28D 07/21/24 07/21/24 Ondansetron [Zofran] 4 mg PO Q4H PRN 07/21/24 07/21/24 Previous Rx's Medication Instructions Recorded Aspirin 81 mg PO DAILY #21 tab 11/20/23 Clopidogrel [Plavix] 75 mg PO DAILY 30 Days #30 tab 11/20/23 Lactulose [Cephulac] 20 gm PO DAILY #1000 ml 07/30/24 Allergies Allergy/AdvReac Type Severity Reaction Status Date / Time No Known Allergies Allergy Verified 08/21/24 13:54 Review of Systems ROS Statement: Those systems with pertinent positive or pertinent negative responses have been documented in the HPI. ROS Other: All systems not noted in ROS Statement are negative. 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 Past Anesthesia/Blood Transfusion Reactions: No Reported Reaction Past Psychological History: No Psychological Hx Reported Smoking Status: Former smoker, Light tobacco smoker Past Alcohol Use History: None Reported Past Drug Use History: None Reported - Past Family History Father Family Medical History: Myocardial Infarction ([place]) Additional Family Medical History / Comment(s): Pt did not know his father but they were told he of a [place] at the age of 42 yrs. Mother Family Medical History: Vascular Disorder Additional Family Medical History / Comment(s): Mother at age 68yrs, pt was told possible d/t ruptured aneurysm in her neck. General Exam Limitations: no limitations Course Vital Signs 09/24/24 09/24/24 18:51 21:55 Temperature 97.4 F L 98.4 F Pulse Rate 68 70 Respiratory 19 19 Rate Blood Pressure 167/83 155/78 O2 Sat by Pulse 98 97 Oximetry - Reevaluation(s) Reevaluation #1: Records reviewed Reevaluation #2: Yeah patient symptoms unchanged Reevaluation #3: Patient informed of results and questions answered Reevaluation #4: Was pt. sent in by a medical professional or institution (, PA, FORK LIFT TRUCK OPERATOR, urgent care, hospital, or senior living...) When possible be specific @ -no Did you speak to anyone other than the patient for history (EMS, parent, family, police, friend...)? What history was obtained from this source @ -no Did you review nursing and triage notes (agree or disagree)? Why? @ -agree Are old charts reviewed (outside hosp., previous admission, EMS record, old EKG, old radiological studies, urgent care reports/EKG's, senior living records)? Report findings @ -yes Differential Diagnosis (chest pain, altered mental status, abdominal pain women, abdominal pain men, vaginal bleeding, weakness, fever, dyspnea, syncope, headache, dizziness, GI bleed, back pain, seizure, CVA, palpatations, mental health, musculoskeletal)? @ -prior EKG interpreted by me (3pts min.). @ -yes X-rays interpreted by me (1pt min.). @ -no CT interpreted by me (1pt min.). @ -yes negative for acute disease U/S interpreted by me (1pt. min.). @ -no What testing was considered but not performed or refused? (CT, X-rays, U/S, labs)? Why? @ -none What meds were considered but not given or refused? Why? @ -none Did you discuss the management of the patient with other professionals (professionals i.e. , PA, FORK LIFT TRUCK OPERATOR, lab, RT, psych nurse, social director, homicide squad commanding officer, teacher, water resources technical officer, rn case management)? Give summary @ -no Was smoking cessation discussed for >3mins.? @ -no Was critical care preformed (if so, how long)? @ -no Were there social determinants of health that impacted care today? How? (Homelessness, low income, unemployed, alcoholism, drug addiction, transportation, low edu. Level, literacy, decrease access to med. care, group home, rehab)? @ -none Was there de-escalation of care discussed even if they declined (Discuss DNR or withdrawal of care, Hospice)? DNR status @ -no What co-morbidities impacted this encounter? (DM, HTN, Smoking, COPD, CAD, Cancer, CVA, ARF, Chemo, Hep., AIDS, mental health diagnosis, sleep apnea, morbid obesity)? @ -none Was patient admitted / discharged? Hospital course, mention meds given and route, prescriptions, significant lab abnormalities, going to OR and other pertinent info. @ - 83 male to the ER for evaluation of severe abdominal pain, patient has no acute findings and can be discharged home Discharge Undiagnosed new problem with uncertain prognosis? @ -no Drug Therapy requiring intensive monitoring for toxicity (Heparin, Nitro, Insulin, Cardizem)? @ -no Were any procedures done? @ -no Diagnosis/symptom? @ -Abdominal pain NOS Acute, or Chronic, or Acute on Chronic? @ -Acute Uncomplicated (without systemic symptoms) or Complicated (systemic symptoms)? @ -Complicated Side effects of treatment? @ -no Exacerbation, Progression, or Severe Exacerbation? @ -exacerbation Poses a threat to life or bodily function? How? (Chest pain, [place], [place], pneumonia, PE, COPD, DKA, ARF, appy, cholecystitis, CVA, Diverticulitis, Homicidal, Suicidal, threat to staff... and all critical care pts) @ -yes extremes of age Reevaluation #5: Differential Abdominal Pain Men: Appendicitis, cholecystitis, diverticulosis, ischemic bowel, pancreatitis, hepatitis, UTI, gastroenteritis, AAA, incarcerated hernia, bowel obstruction, constipation, inflammatory bowel, hepatitis, peptic ulcer disease, splenic infarction, perforated viscus, testicular torsion, this is not meant to be an all-inclusive list Medical Decision Making - Medical Decision Making 83 male to the ER for evaluation of severe abdominal pain, patient has no acute findings and can be discharged home - Lab Data Result diagrams: 09/24/24 20:00 09/24/24 20:00 Lab Results 09/24/24 09/24/24 09/24/24 Range/Units 20:00 20:00 20:00 WBC 7.4 (3.8-10.6) k/uL RBC 3.73 L (4.30-5.90) m/uL Hgb 11.5 L (13.0-17.5) gm/dL Hct 35.0 L (39.0-53.0) % MCV 93.9 (80.0-100.0) fL MCH 30.8 (25.0-35.0) pg MCHC 32.8 (31.0-37.0) g/dL RDW 13.3 (11.5-15.5) % Plt Count 331 (150-450) k/uL MPV 6.7 Neutrophils % 68 % Lymphocytes % 25 % Monocytes % 4 % Eosinophils % 2 % Basophils % 0 % Neutrophils # 5.0 (1.3-7.7) k/uL Lymphocytes # 1.8 (1.0-4.8) k/uL Monocytes # 0.3 (0-1.0) k/uL Eosinophils # 0.1 (0-0.7) k/uL Basophils # 0.0 (0-0.2) k/uL PT 11.2 (10.0-12.5) sec INR 1.0 (<1.2) APTT 25.0 (22.0-30.0) sec Sodium 134 L (137-145) mmol/L Potassium 4.1 (3.5-5.1) mmol/L Chloride 106 (98-107) mmol/L Carbon Dioxide 18 L (22-30) mmol/L Anion Gap 10 mmol/L BUN 21 H (9-20) mg/dL Creatinine 1.26 H (0.66-1.25) mg/dL Est GFR (CKD-EPI)AfAm 60 (>60 ml/min/1.73 sqM) Est GFR (CKD-EPI)NonAf 52 (>60 ml/min/1.73 sqM) Glucose 117 H (74-99) mg/dL Plasma Lactic Acid J Carlos (0.7-2.0) mmol/L Calcium 9.4 (8.4-10.2) mg/dL Total Bilirubin 0.5 (0.2-1.3) mg/dL AST 21 (17-59) U/L ALT 10 (4-49) U/L Alkaline Phosphatase 70 (38-126) U/L Total Protein 6.5 (6.3-8.2) g/dL Albumin 4.0 (3.5-5.0) g/dL Amylase 45 (30-110) U/L Lipase <10 L (23-300) U/L 09/24/24 Range/Units 20:00 WBC (3.8-10.6) k/uL RBC (4.30-5.90) m/uL Hgb (13.0-17.5) gm/dL Hct (39.0-53.0) % MCV (80.0-100.0) fL MCH (25.0-35.0) pg MCHC (31.0-37.0) g/dL RDW (11.5-15.5) % Plt Count (150-450) k/uL MPV Neutrophils % % Lymphocytes % % Monocytes % % Eosinophils % % Basophils % % Neutrophils # (1.3-7.7) k/uL Lymphocytes # (1.0-4.8) k/uL Monocytes # (0-1.0) k/uL Eosinophils # (0-0.7) k/uL Basophils # (0-0.2) k/uL PT (10.0-12.5) sec INR (<1.2) APTT (22.0-30.0) sec Sodium (137-145) mmol/L Potassium (3.5-5.1) mmol/L Chloride (98-107) mmol/L Carbon Dioxide (22-30) mmol/L Anion Gap mmol/L BUN (9-20) mg/dL Creatinine (0.66-1.25) mg/dL Est GFR (CKD-EPI)AfAm (>60 ml/min/1.73 sqM) Est GFR (CKD-EPI)NonAf (>60 ml/min/1.73 sqM) Glucose (74-99) mg/dL Plasma Lactic Acid J Carlos 1.7 (0.7-2.0) mmol/L Calcium (8.4-10.2) mg/dL Total Bilirubin (0.2-1.3) mg/dL AST (17-59) U/L ALT (4-49) U/L Alkaline Phosphatase (38-126) U/L Total Protein (6.3-8.2) g/dL Albumin (3.5-5.0) g/dL Amylase (30-110) U/L Lipase (23-300) U/L - EKG Data -: EKG Interpreted by Me (EKG is sinus 68 NE 160 QRS 82 QTc 420) - Radiology Data Radiology results: report reviewed (CT abdomen pelvis is negative for acute disease), image reviewed Disposition Clinical Impression: Abdominal colic, Generalized weakness, Weakness Disposition: HOME SELF-CARE Condition: Good Instructions (If sedation given, give patient instructions): Abdominal Pain (ED) Is patient prescribed a controlled substance at d/c from ED?: No Referrals: Kenneth Luciano MD [Primary Care Provider] - 1-2 days Time of Disposition: 21:00
[2024-09-24] MEDS: ONDANSETRON 4 MG/2 ML VIAL IVP STA (20:00)
[2024-09-24] MEDS: HYDROmorphone 1 MG/ML 1 ML SYRINGE IVP STA (20:01)
[2024-09-24] MEDS: SODIUM CHLORIDE 0.9% 1,000 ML IV STA (20:01)
[2024-09-24] MEDS: PANTOPRAZOLE 40 MG/10 ML VIAL IVP STA (20:01)
[2024-09-24 20:17] LABS: Basophils % (A) 0 %; Eosinophils # (A) 0.1 k/uL (0-0.7); Eosinophils % (A) 2 %; HGB 11.5 gm/dL (13.0-17.5); Lymphocytes # (A) 1.8 k/uL (1.0-4.8); Lymphocytes % (A) 25 %; MCH 30.8 pg (25.0-35.0); MCHC 32.8 g/dL (31.0-37.0); MCV 93.9 fL (80.0-100.0); Mean Platelet Volume 6.7; Monocytes # (A) 0.3 k/uL (0-1.0); Monocytes % (A) 4 %; Neutrophils % (A) 68 %; Platelet Count 331 k/uL (150-450); RBC 3.73 m/uL (4.30-5.90); RDW 13.3 % (11.5-15.5); WBC 7.4 k/uL (3.8-10.6)
[2024-09-24 20:25] LABS: Prothrombin Time 11.2 sec (10.0-12.5)
--- NOTE | 2024-09-24 20:26 | CT ---
EXAMINATION TYPE: CT abdomen pelvis wo con CT DLP: 331.3 mGycm, Automated exposure control for dose reduction was used. DATE OF EXAM: 09/24/2024 7:42 PM COMPARISON: CT abdomen pelvis 07/22/2024 CLINICAL INDICATION:Male, 83 years old with history of abdominal pain; Abd pain and nausea for the pa st few day. Hx of colon cancer 8-9 years ago and SBOs. TECHNIQUE: Axial CT abdomen pelvis wo con;Sagittal and coronal reformats were created on a separate workstation. Contrast used: mL of , (none if empty) Oral contrast used: without Oral Contrast (none if empty) FINDINGS: LOWER CHEST: There is a 6 mm subpleural right lower lobe nodule seen. There is bibasilar atelectasis/ scarring. ABDOMEN LIVER: Unremarkable GALLBLADDER AND BILE DUCTS: The gallbladder is surgically absent. PANCREAS: Atrophic. SPLEEN: Unremarkable. ADRENAL GLANDS: Unremarkable. KIDNEYS AND URETERS: No evidence of hydronephrosis. Nonobstructive punctate vascular calcifications v ersus nonobstructing renal calculi.. The ureters are unremarkable. PELVIS BLADDER: Unremarkable REPRODUCTIVE: Penile prosthesis is noted with reservoir in similar position within the right hemipelv is abutting the urinary bladder. Multiple attenuated foci within the prostate likely represent post r adiotherapy changes. ABDOMEN & PELVIS STOMACH AND BOWEL: Postsurgical changes at the GE junction with a small hiatal hernia present.Small b owel is of normal caliber. Postsurgical changes of the small bowel appreciated. No evidence of bowel obstruction. PERITONEUM/RETROPERITONEUM: No evidence of pneumoperitoneum or free fluid. VASCULATURE: No evidence of aortic aneurysm. MUSCULOSKELETAL: No acute osseous abnormalities LYMPH NODES: No gross evidence for lymphadenopathy. SOFT TISSUE/ABDOMINAL WALL: Mild soft tissue edema. Small soft tissue nodules versus cystic changes a re appreciated in the posterior right soft tissues. IMPRESSION: 1. No acute intra-abdominal/pelvic process. 2. Postsurgical changes. 3. Small hiatal hernia. 4. Mild soft tissue anasarca. 5. Nonspecific 6 mm right lower lobe subpleural nodule may be infectious/inflammatory attention on fo llow-up. [facility], , 09/24/2024 8:24 PM
[2024-09-24 20:33] LABS: ALT 10 U/L (4-49); AST 21 U/L (17-59); African American GFR (CKD) 60 (>60 ml/min/1.73 sqM); Alkaline Phosphatase 70 U/L (38-126); Amylase 45 U/L (30-110); Anion Gap 10 mmol/L; Blood Urea Nitrogen 21 mg/dL (9-20); Calcium 9.4 mg/dL (8.4-10.2); Carbon Dioxide 18 mmol/L (22-30); Chloride 106 mmol/L (98-107); Glucose 117 mg/dL (74-99); Lipase <10 U/L (23-300); Non-African American GFR(CKD) 52 (>60 ml/min/1.73 sqM); Potassium 4.1 mmol/L (3.5-5.1); Sodium 134 mmol/L (137-145); Total Bilirubin 0.5 mg/dL (0.2-1.3); Total Protein 6.5 g/dL (6.3-8.2)
[2024-09-24 21:57] VITALS: BP 155/78; PULSE 70; TEMP 98.4
== END 2024-09-24 21:56 | disposition home or self-care (01) ==
LOC: EC 18:42
DX: R10.84 Generalized abdominal pain (principal); R53.1 Weakness; F17.200 Nicotine dependence, unspecified, uncomplicated
CPT/HCPCS: 36415; 80053; 82150; 83605; 83690; 85025; 85610; 85730; 74176; 99284; 96374; 96375 ×2; 96361; J2405; J1171; J2470

== ENCOUNTER → 2024-09-25 | Outpatient (CLI) | payer MEDICARE, BC ==
--- NOTE | 2024-09-25 13:59 | MR ---
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 FINDINGS: The ventricles, basal cisterns and sulci overlying the cerebral convexities are mildly enlarged. There is evidence of mild to moderate and somewhat confluent periventricular white matter ischemic de myelination. Remote deep white matter insults are also noted. No acute edema is seen on diffusion weighted imaging. There is no evidence for midline shift or mass effect. Acute intracranial hemorrhage or extra-axial collection is not evident. The paranasal sinuses are well-aerated. IMPRESSION: Age-related atrophic and chronic small vessel ischemic change. No acute intracranial process at this time. [facility], , 09/25/2024 1:56 PM
== END | disposition home or self-care (01) ==
LOC: RADMRIMAIN 12:47
PROVIDERS: ATTEND Student in an Organized Health Care Education/Training Program
DX: C44.212 Basal cell carcinoma of skin of right ear and external auricular canal (principal); I67.82 Cerebral ischemia; R20.0 Anesthesia of skin
CPT/HCPCS: 70551

== ENCOUNTER 2024-10-06 15:17 | Inpatient (IN) | payer MEDICARE, BC ==
[2024-10-06] MEDS: SODIUM CHLORIDE 0.9% 1,000 ML IV ONE (15:50)
[2024-10-06 15:55] LABS: Glucose,Whole Blood 109 mg/dL (70-110)
--- NOTE | 2024-10-06 15:56 | ED ---
Altered Mental Status HPI - General Chief Complaint: Altered Mental Status Stated Complaint: AMS Time Seen by Provider: 10/06/24 15:39 Source: RN/MD, RN notes reviewed, old records reviewed Mode of arrival: wheelchair Limitations: no limitations - History of Present Illness Initial Comments: This is an 83-year-old male presenting for altered mental status, patient presents from outpatient MRI for deteriorating mental status, altered on presentation for outpatient MRI as patient drove himself to the hospital and worse throughout testing MD Complaint: altered mental status, confusion, decreased responsiveness, weakness -: unknown Severity: moderate Consistency of Symptoms: getting worse Context: history of similar presentation Associated Symptoms: denies other symptoms Treatments Prior to Arrival: oxygen - Related Data Home Medications Medication Instructions Recorded Confirmed Losartan [Cozaar] 25 mg PO DAILY 11/18/23 10/06/24 QUEtiapine [SEROquel] 400 mg PO HS 11/18/23 10/06/24 Erivedge 150mg 150 mg PO HS 07/21/24 10/06/24 Famotidine 40 mg PO DAILY 07/21/24 10/06/24 Octreotide Lar [SandoSTATIN LAR] 40 mg SQ Q28D 07/21/24 10/06/24 Ondansetron [Zofran] 4 mg PO Q4H PRN 07/21/24 10/06/24 Dicyclomine [Bentyl] 20 mg PO TID PRN 10/06/24 10/06/24 Fludrocortisone [Florinef] 0.1 mg PO DAILY 10/06/24 10/06/24 Lactulose [Cephulac] 20 gm PO DAILY PRN 10/06/24 10/06/24 rOPINIRole HCL [Requip] 0.5 mg PO HS 10/06/24 10/06/24 Previous Rx's Medication Instructions Recorded Aspirin 81 mg PO DAILY #21 tab 11/20/23 Clopidogrel [Plavix] 75 mg PO DAILY 30 Days #30 tab 11/20/23 Atorvastatin [Lipitor] 40 mg PO HS #30 tab 10/09/24 levETIRAcetam [Keppra] 500 mg PO Q12HR #60 tab 10/09/24 Allergies Allergy/AdvReac Type Severity Reaction Status Date / Time No Known Allergies Allergy Verified 10/06/24 15:28 Review of Systems ROS Statement: Those systems with pertinent positive or pertinent negative responses have been documented in the HPI. ROS Other: All systems not noted in ROS Statement are negative. 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 Past Anesthesia/Blood Transfusion Reactions: No Reported Reaction Past Psychological History: No Psychological Hx Reported Smoking Status: Former smoker, Light tobacco smoker Past Alcohol Use History: None Reported Past Drug Use History: None Reported - Past Family History Father Family Medical History: Myocardial Infarction (TN) Additional Family Medical History / Comment(s): Pt did not know his father but they were told he of a [place] at the age of 42 yrs. Mother Family Medical History: Vascular Disorder Additional Family Medical History / Comment(s): Mother at age 68yrs, pt was told possible d/t ruptured aneurysm in her neck. General Exam Limitations: altered mental status, physical limitation General appearance: alert, in no apparent distress Head exam: Present: atraumatic, normocephalic, normal inspection Eye exam: Present: normal appearance, PERRL, EOMI. Absent: scleral icterus, conjunctival injection, periorbital swelling ENT exam: Present: normal exam, mucous membranes moist Neck exam: Present: normal inspection. Absent: tenderness, meningismus, lymphadenopathy Respiratory exam: Present: normal lung sounds bilaterally. Absent: respiratory distress, wheezes, rales, rhonchi, stridor Cardiovascular Exam: Present: regular rate, normal rhythm, normal heart sounds. Absent: systolic murmur, diastolic murmur, rubs, gallop, clicks GI/Abdominal exam: Present: soft, normal bowel sounds. Absent: distended, tenderness, guarding, rebound, rigid Extremities exam: Present: normal inspection, full ROM, normal capillary refill. Absent: tenderness, pedal edema, joint swelling, calf tenderness Back exam: Present: normal inspection Neurological exam: Present: alert, oriented X3, CN II-XII intact Psychiatric exam: Present: normal affect, normal mood Skin exam: Present: warm, dry, intact, normal color. Absent: rash Course Vital Signs 10/06/24 10/06/24 10/06/24 15:24 15:54 18:39 Temperature Pulse Rate 98 90 88 Respiratory 18 20 20 Rate Blood Pressure 162/103 171/110 174/99 O2 Sat by Pulse 100 100 94 L Oximetry 10/06/24 10/07/24 10/07/24 20:57 00:00 01:00 Temperature 98.1 F Pulse Rate 87 71 77 Respiratory 16 18 18 Rate Blood Pressure 149/78 159/85 153/84 O2 Sat by Pulse 97 97 98 Oximetry 10/07/24 10/07/24 10/07/24 02:00 05:00 09:00 Temperature 97.7 F 97.8 F Pulse Rate 72 74 89 Respiratory 18 18 18 Rate Blood Pressure 161/88 163/74 131/69 O2 Sat by Pulse 98 98 96 Oximetry 10/07/24 10/07/24 10/07/24 10:00 11:00 11:51 Temperature Pulse Rate 80 79 88 Respiratory 18 18 18 Rate Blood Pressure 131/69 O2 Sat by Pulse 98 97 98 Oximetry 10/07/24 14:15 Temperature Pulse Rate 82 Respiratory 18 Rate Blood Pressure 179/90 O2 Sat by Pulse 96 Oximetry - Reevaluation(s) Reevaluation #1: 10/06/24 16:46 Medical records reviewed Recent hospital ER visit including visit for abdominal pain with normal testing, patient had outpatient MRI today Reevaluation #2: 10/06/24 16:47 Patient symptoms unchanged Reevaluation #3: 10/06/24 16:47 Patient and family informed of results questions answered, family at bedside who states this is a significant alteration from patient's normal mental state Reevaluation #4: Was pt. sent in by a medical professional or institution (NEERU Amato, [employer], urgent care, hospital, or [facility]...) When possible be specific @ -no Did you speak to anyone other than the patient for history (EMS, parent, family, police, friend...)? What history was obtained from this source @ -no Did you review nursing and triage notes (agree or disagree)? Why? @ -agree Are old charts reviewed (outside hosp., previous admission, EMS record, old EKG, old radiological studies, urgent care reports/EKG's, [facility] records)? Report findings @ -yes Differential Diagnosis (chest pain, altered mental status, abdominal pain women, abdominal pain men, vaginal bleeding, weakness, fever, dyspnea, syncope, headache, dizziness, GI bleed, back pain, seizure, CVA, palpatations, mental health, musculoskeletal)? @ -prior EKG interpreted by me (3pts min.). @ -yes X-rays interpreted by me (1pt min.). @ -yes negative for acute disease CT interpreted by me (1pt min.). @ -Yes negative for acute disease U/S interpreted by me (1pt. min.). @ -no What testing was considered but not performed or refused? (CT, X-rays, U/S, labs)? Why? @ -none What meds were considered but not given or refused? Why? @ -none Did you discuss the management of the patient with other professionals (professionals i.e. NEERU Amato, [employer], lab, RT, psych nurse, elementary school social worker, code official, teacher, forest fire management officer, case resolution specialist)? Give summary @ -no Was smoking cessation discussed for >3mins.? @ -no Was critical care preformed (if so, how long)? @ -yes31 Were there social determinants of health that impacted care today? How? ( Homelessness, low income, unemployed, alcoholism, drug addiction, transportation, low edu. Level, literacy, decrease access to med. care, longterm, rehab)? @ -none Was there de-escalation of care discussed even if they declined (Discuss DNR or withdrawal of care, Hospice)? DNR status @ -no What co-morbidities impacted this encounter? (DM, HTN, Smoking, COPD, CAD, Cancer, CVA, ARF, Chemo, Hep., AIDS, mental health diagnosis, sleep apnea, morbid obesity)? @ -none Was patient admitted / discharged? Hospital course, mention meds given and route, prescriptions, significant lab abnormalities, going to OR and other pertinent info. @ - 83 male presenting with altered mental status today from outpatient MRI 83 open patient will be admitted for monitoring of altered mental status although it is improving here in the ER Admitted Undiagnosed new problem with uncertain prognosis? @ -no Drug Therapy requiring intensive monitoring for toxicity (Heparin, Nitro, Insulin, Cardizem)? @ -no Were any procedures done? @ -no Diagnosis/symptom? @ -Altered mental status unresponsiveness Acute, or Chronic, or Acute on Chronic? @ -Acute Uncomplicated (without systemic symptoms) or Complicated (systemic symptoms)? @ -Complicated Side effects of treatment? @ -no Exacerbation, Progression, or Severe Exacerbation? @ -exacerbation Poses a threat to life or bodily function? How? (Chest pain, [place], [place], pneumonia, PE, COPD, DKA, ARF, appy, cholecystitis, CVA, Diverticulitis, Homicidal, Suicidal, threat to staff... and all critical care pts) @ -yes extremes of age Reevaluation #5: Differential Altered Mental Status: Hypoglycemia, DKA, hypercapnia, ETOH, overdose, CO poisoning, trauma, myxedema coma, HTN encephalopathy, infection, encephalitis, psychosis, intercranial hem orrhage, hepatic encephalopathy, meningitis, CVA, this is not meant to be an all-inclusive list - Consultations Consultation #1: Spoke with [facility] who agrees to admit this patient Medical Decision Making - Medical Decision Making 83 male presenting with altered mental status today from outpatient MRI 83 open patient will be admitted for monitoring of altered mental status although it is improving here in the ER - Lab Data Result diagrams: 10/08/24 07:25 10/09/24 03:45 Lab Results 10/06/24 10/06/24 10/06/24 Range/Units 15:39 15:47 16:50 WBC 6.7 (3.8-10.6) k/uL RBC 4.24 L (4.30-5.90) m/uL Hgb 13.1 (13.0-17.5) gm/dL Hct 39.2 (39.0-53.0) % MCV 92.5 (80.0-100.0) fL MCH 30.9 (25.0-35.0) pg MCHC 33.4 (31.0-37.0) g/dL RDW 13.3 (11.5-15.5) % Plt Count 377 (150-450) k/uL MPV 7.1 Immature Gran % (Auto) % Absolute Nucleated RBC % Neutrophils % 70 % Lymphocytes % 22 % Monocytes % 4 % Eosinophils % 1 % Basophils % 1 % Immature Gran # (0.00-0.04) X 10*3/uL Neutrophils # 4.7 (1.3-7.7) k/uL Lymphocytes # 1.5 (1.0-4.8) k/uL Monocytes # 0.3 (0-1.0) k/uL Eosinophils # 0.1 (0-0.7) k/uL Basophils # 0.0 (0-0.2) k/uL NRBC/100 WBC Diff (0.00-0.01) X 10*3/uL Manual Slide Review Poikilocytosis (manual Anisocytosis (manual) PT (10.0-12.5) sec INR (<1.2) APTT (22.0-30.0) sec Sodium 139 (137-145) mmol/L Potassium 3.7 (3.5-5.1) mmol/L Chloride 109 H (98-107) mmol/L Carbon Dioxide 12 L (22-30) mmol/L Anion Gap 18 mmol/L BUN 23 H (9-20) mg/dL Creatinine 1.38 H (0.66-1.25) mg/dL Est GFR (CKD-EPI) (>=60) Est GFR (CKD-EPI)AfAm 54 (>60 ml/min/1.73 sqM) Est GFR (CKD-EPI)NonAf 47 (>60 ml/min/1.73 sqM) BUN/Creatinine Ratio (12.00-20.00) Ratio Glucose 103 H (74-99) mg/dL POC Glucose (mg/dL) 109 (70-110) mg/dL POC Glu Optics Engineer [address] Glu mg/dL mg/dL Hemoglobin A1c (<=6.0) % Calcium 8.9 (8.4-10.2) mg/dL Phosphorus 3.4 (2.5-4.5) mg/dL Magnesium 1.4 L (1.6-2.3) mg/dL Total Bilirubin 0.3 (0.2-1.3) mg/dL AST 22 (17-59) U/L ALT 7 (4-49) U/L Alkaline Phosphatase 62 (38-126) U/L Ammonia (<30) umol/L Troponin I (0.000-0.034) ng/mL Total Protein 6.4 (6.3-8.2) g/dL Albumin 3.9 (3.5-5.0) g/dL Globulin (1.6-3.3) g/dL Albumin/Globulin Ratio (1.60-3.17) Ratio Triglycerides (0.00-149.00) mg/dL Cholesterol (0.00-200.00) mg/dL LDL Cholesterol Direct LDL Cholesterol, Calc (0.0-131.0) mg/dL VLDL Cholesterol, Calc (5.00-40.00) mg/dL HDL Cholesterol (40.00-60.00) mg/dL Cholesterol/HDL Ratio Ratio Urine Color Urine Appearance (Clear) Urine pH (5.0-8.0) Ur Specific [place] (1.001-1.035) Urine Protein (Negative) Urine Glucose (UA) (Negative) Urine Ketones (Negative) Urine Blood (Negative) Urine Nitrite (Negative) Urine Bilirubin (Negative) Urine Urobilinogen (<2.0) mg/dL Ur Leukocyte Esterase (Negative) Urine Opiates Screen (NotDetected) Ur Oxycodone Screen (NotDetected) Urine Methadone Screen (NotDetected) Ur Barbiturates Screen (NotDetected) U Tricyclic Antidepress (NotDetected) Ur Phencyclidine Scrn (NotDetected) Ur Amphetamines Screen (NotDetected) U Methamphetamines Scrn (NotDetected) U Benzodiazepines Scrn (NotDetected) Urine Cocaine Screen (NotDetected) U Marijuana (THC) Screen (NotDetected) 10/06/24 10/06/24 10/06/24 Range/Units 16:50 16:50 18:37 WBC (3.8-10.6) k/uL RBC (4.30-5.90) m/uL Hgb (13.0-17.5) gm/dL Hct (39.0-53.0) % MCV (80.0-100.0) fL MCH (25.0-35.0) pg MCHC (31.0-37.0) g/dL RDW (11.5-15.5) % Plt Count (150-450) k/uL MPV Immature Gran % (Auto) % Absolute Nucleated RBC % Neutrophils % % Lymphocytes % % Monocytes % % Eosinophils % % Basophils % % Immature Gran # (0.00-0.04) X 10*3/uL Neutrophils # (1.3-7.7) k/uL Lymphocytes # (1.0-4.8) k/uL Monocytes # (0-1.0) k/uL Eosinophils # (0-0.7) k/uL Basophils # (0-0.2) k/uL NRBC/100 WBC Diff (0.00-0.01) X 10*3/uL Manual Slide Review Poikilocytosis (manual Anisocytosis (manual) PT 12.8 H (10.0-12.5) sec INR 1.2 H (<1.2) APTT 29.0 (22.0-30.0) sec Sodium (137-145) mmol/L Potassium (3.5-5.1) mmol/L Chloride (98-107) mmol/L Carbon Dioxide (22-30) mmol/L Anion Gap mmol/L BUN (9-20) mg/dL Creatinine (0.66-1.25) mg/dL Est GFR (CKD-EPI) (>=60) Est GFR (CKD-EPI)AfAm (>60 ml/min/1.73 sqM) Est GFR (CKD-EPI)NonAf (>60 ml/min/1.73 sqM) BUN/Creatinine Ratio (12.00-20.00) Ratio Glucose (74-99) mg/dL POC Glucose (mg/dL) (70-110) mg/dL POC Glu Optics Engineer ID Estimated Ave Glu mg/dL mg/dL Hemoglobin A1c (<=6.0) % Calcium (8.4-10.2) mg/dL Phosphorus (2.5-4.5) mg/dL Magnesium (1.6-2.3) mg/dL Total Bilirubin (0.2-1.3) mg/dL AST (17-59) U/L ALT (4-49) U/L Alkaline Phosphatase (38-126) U/L Ammonia <9 (<30) umol/L Troponin I 0.015 (0.000-0.034) ng/mL Total Protein (6.3-8.2) g/dL Albumin (3.5-5.0) g/dL Globulin (1.6-3.3) g/dL Albumin/Globulin Ratio (1.60-3.17) Ratio Triglycerides (0.00-149.00) mg/dL Cholesterol (0.00-200.00) mg/dL LDL Cholesterol Direct LDL Cholesterol, Calc (0.0-131.0) mg/dL VLDL Cholesterol, Calc (5.00-40.00) mg/dL HDL Cholesterol (40.00-60.00) mg/dL Cholesterol/HDL Ratio Ratio Urine Color Urine Appearance (Clear) Urine pH (5.0-8.0) Ur Specific [place] (1.001-1.035) Urine Protein (Negative) Urine Glucose (UA) (Negative) Urine Ketones (Negative) Urine Blood (Negative) Urine Nitrite (Negative) Urine Bilirubin (Negative) Urine Urobilinogen (<2.0) mg/dL Ur Leukocyte Esterase (Negative) Urine Opiates Screen (NotDetected) Ur Oxycodone Screen (NotDetected) Urine Methadone Screen (NotDetected) Ur Barbiturates Screen (NotDetected) U Tricyclic Antidepress (NotDetected) Ur Phencyclidine Scrn (NotDetected) Ur Amphetamines Screen (NotDetected) U Methamphetamines Scrn (NotDetected) U Benzodiazepines Scrn (NotDetected) Urine Cocaine Screen (NotDetected) U Marijuana (THC) Screen (NotDetected) 10/07/24 10/07/24 10/07/24 Range/Units 06:50 06:50 06:50 WBC 6.14 (3.8-10.6) k/uL RBC 3.12 L (4.30-5.90) m/uL Hgb 9.6 L (13.0-17.5) gm/dL Hct 28.6 L (39.0-53.0) % MCV 91.7 (80.0-100.0) fL MCH 30.8 (25.0-35.0) pg MCHC 33.6 (31.0-37.0) g/dL RDW 13.2 (11.5-15.5) % Plt Count 276 (150-450) k/uL MPV 9.9 Immature Gran % (Auto) 0.50 % Absolute Nucleated RBC 0 % Neutrophils % 62.5 % Lymphocytes % 28.3 % Monocytes % 6.7 % Eosinophils % 1.5 % Basophils % 0.5 % Immature Gran # 0.03 (0.00-0.04) X 10*3/uL Neutrophils # 3.84 (1.3-7.7) k/uL Lymphocytes # 1.74 (1.0-4.8) k/uL Monocytes # 0.41 (0-1.0) k/uL Eosinophils # 0.09 (0-0.7) k/uL Basophils # 0.03 (0-0.2) k/uL NRBC/100 WBC Diff 0 (0.00-0.01) X 10*3/uL Manual Slide Review Poikilocytosis (manual Anisocytosis (manual) PT (10.0-12.5) sec INR (<1.2) APTT (22.0-30.0) sec Sodium 141 (137-145) mmol/L Potassium 3.4 L (3.5-5.1) mmol/L Chloride 107 (98-107) mmol/L Carbon Dioxide 14.2 L (22-30) mmol/L Anion Gap 19.80 H mmol/L BUN 19.2 (9-20) mg/dL Creatinine 1.3 (0.66-1.25) mg/dL Est GFR (CKD-EPI) 54 L (>=60) Est GFR (CKD-EPI)AfAm (>60 ml/min/1.73 sqM) Est GFR (CKD-EPI)NonAf (>60 ml/min/1.73 sqM) BUN/Creatinine Ratio 14.77 (12.00-20.00) Ratio Glucose 103 (74-99) mg/dL POC Glucose (mg/dL) (70-110) mg/dL POC Glu Optics Engineer ID Estimated Ave Glu mg/dL 120 mg/dL Hemoglobin A1c 5.8 (<=6.0) % Calcium 8.1 L (8.4-10.2) mg/dL Phosphorus 2.5 (2.5-4.5) mg/dL Magnesium 1.3 L (1.6-2.3) mg/dL Total Bilirubin 0.2 L (0.2-1.3) mg/dL AST 17 (17-59) U/L ALT 5 L (4-49) U/L Alkaline Phosphatase 55 (38-126) U/L Ammonia (<30) umol/L Troponin I (0.000-0.034) ng/mL Total Protein 5.8 L (6.3-8.2) g/dL Albumin 3.5 L (3.5-5.0) g/dL Globulin 2.3 (1.6-3.3) g/dL Albumin/Globulin Ratio 1.52 L (1.60-3.17) Ratio Triglycerides (0.00-149.00) mg/dL Cholesterol (0.00-200.00) mg/dL LDL Cholesterol Direct LDL Cholesterol, Calc (0.0-131.0) mg/dL VLDL Cholesterol, Calc (5.00-40.00) mg/dL HDL Cholesterol (40.00-60.00) mg/dL Cholesterol/HDL Ratio Ratio Urine Color Urine Appearance (Clear) Urine pH (5.0-8.0) Ur Specific [place] (1.001-1.035) Urine Protein (Negative) Urine Glucose (UA) (Negative) Urine Ketones (Negative) Urine Blood (Negative) Urine Nitrite (Negative) Urine Bilirubin (Negative) Urine Urobilinogen (<2.0) mg/dL Ur Leukocyte Esterase (Negative) Urine Opiates Screen (NotDetected) Ur Oxycodone Screen (NotDetected) Urine Methadone Screen (NotDetected) Ur Barbiturates Screen (NotDetected) U Tricyclic Antidepress (NotDetected) Ur Phencyclidine Scrn (NotDetected) Ur Amphetamines Screen (NotDetected) U Methamphetamines Scrn (NotDetected) U Benzodiazepines Scrn (NotDetected) Urine Cocaine Screen (NotDetected) U Marijuana (THC) Screen (NotDetected) 10/07/24 10/07/24 10/08/24 Range/Units 06:50 11:46 07:25 WBC 8.1 (3.8-10.6) k/uL RBC 3.55 L (4.30-5.90) m/uL Hgb 11.1 L (13.0-17.5) gm/dL Hct 32.9 L (39.0-53.0) % MCV 92.6 (80.0-100.0) fL MCH 31.2 (25.0-35.0) pg MCHC 33.7 (31.0-37.0) g/dL RDW 13.4 (11.5-15.5) % Plt Count 229 (150-450) k/uL MPV 7.4 Immature Gran % (Auto) % Absolute Nucleated RBC % Neutrophils % 69 % Lymphocytes % 23 % Monocytes % 4 % Eosinophils % 2 % Basophils % 0 % Immature Gran # (0.00-0.04) X 10*3/uL Neutrophils # 5.6 (1.3-7.7) k/uL Lymphocytes # 1.9 (1.0-4.8) k/uL Monocytes # 0.4 (0-1.0) k/uL Eosinophils # 0.2 (0-0.7) k/uL Basophils # 0.0 (0-0.2) k/uL NRBC/100 WBC Diff (0.00-0.01) X 10*3/uL Manual Slide Review Performed Poikilocytosis (manual Present Anisocytosis (manual) Present PT (10.0-12.5) sec INR (<1.2) APTT (22.0-30.0) sec Sodium (137-145) mmol/L Potassium (3.5-5.1) mmol/L Chloride (98-107) mmol/L Carbon Dioxide (22-30) mmol/L Anion Gap mmol/L BUN (9-20) mg/dL Creatinine (0.66-1.25) mg/dL Est GFR (CKD-EPI) (>=60) Est GFR (CKD-EPI)AfAm (>60 ml/min/1.73 sqM) Est GFR (CKD-EPI)NonAf (>60 ml/min/1.73 sqM) BUN/Creatinine Ratio (12.00-20.00) Ratio Glucose (74-99) mg/dL POC Glucose (mg/dL) (70-110) mg/dL POC Glu Optics Engineer ID Estimated Ave Glu mg/dL mg/dL Hemoglobin A1c (<=6.0) % Calcium (8.4-10.2) mg/dL Phosphorus (2.5-4.5) mg/dL Magnesium (1.6-2.3) mg/dL Total Bilirubin (0.2-1.3) mg/dL AST (17-59) U/L ALT (4-49) U/L Alkaline Phosphatase (38-126) U/L Ammonia (<30) umol/L Troponin I (0.000-0.034) ng/mL Total Protein (6.3-8.2) g/dL Albumin (3.5-5.0) g/dL Globulin (1.6-3.3) g/dL Albumin/Globulin Ratio (1.60-3.17) Ratio Triglycerides 147.00 (0.00-149.00) mg/dL Cholesterol 173.00 (0.00-200.00) mg/dL LDL Cholesterol Direct LDL Cholesterol, Calc 92.5 (0.0-131.0) mg/dL VLDL Cholesterol, Calc 29.40 (5.00-40.00) mg/dL HDL Cholesterol 51.10 (40.00-60.00) mg/dL Cholesterol/HDL Ratio 3.39 Ratio Urine Color Yellow Urine Appearance Clear (Clear) Urine pH 6.0 (5.0-8.0) Ur Specific [place] 1.025 (1.001-1.035) Urine Protein Trace H (Negative) Urine Glucose (UA) Negative (Negative) Urine Ketones 2+ H (Negative) Urine Blood Negative (Negative) Urine Nitrite Negative (Negative) Urine Bilirubin Negative (Negative) Urine Urobilinogen <2.0 (<2.0) mg/dL Ur Leukocyte Esterase Negative (Negative) Urine Opiates Screen Not Detected (NotDetected) Ur Oxycodone Screen Not Detected (NotDetected) Urine Methadone Screen Not Detected (NotDetected) Ur Barbiturates Screen Not Detected (NotDetected) U Tricyclic Antidepress Detected H (NotDetected) Ur Phencyclidine Scrn Not Detected (NotDetected) Ur Amphetamines Screen Not Detected (NotDetected) U Methamphetamines Scrn Not Detected (NotDetected) U Benzodiazepines Scrn Not Detected (NotDetected) Urine Cocaine Screen Not Detected (NotDetected) U Marijuana (THC) Screen Detected H (NotDetected) 10/08/24 Range/Units 07:25 WBC (3.8-10.6) k/uL RBC (4.30-5.90) m/uL Hgb (13.0-17.5) gm/dL Hct (39.0-53.0) % MCV (80.0-100.0) fL MCH (25.0-35.0) pg MCHC (31.0-37.0) g/dL RDW (11.5-15.5) % Plt Count (150-450) k/uL MPV Immature Gran % (Auto) % Absolute Nucleated RBC % Neutrophils % % Lymphocytes % % Monocytes % % Eosinophils % % Basophils % % Immature Gran # (0.00-0.04) X 10*3/uL Neutrophils # (1.3-7.7) k/uL Lymphocytes # (1.0-4.8) k/uL Monocytes # (0-1.0) k/uL Eosinophils # (0-0.7) k/uL Basophils # (0-0.2) k/uL NRBC/100 WBC Diff (0.00-0.01) X 10*3/uL Manual Slide Review Poikilocytosis (manual Anisocytosis (manual) PT (10.0-12.5) sec INR (<1.2) APTT (22.0-30.0) sec Sodium 141 (137-145) mmol/L Potassium 3.4 L (3.5-5.1) mmol/L Chloride 110 H (98-107) mmol/L Carbon Dioxide 14 L (22-30) mmol/L Anion Gap 17 mmol/L BUN 15 (9-20) mg/dL Creatinine 0.97 (0.66-1.25) mg/dL Est GFR (CKD-EPI) (>=60) Est GFR (CKD-EPI)AfAm 83 (>60 ml/min/1.73 sqM) Est GFR (CKD-EPI)NonAf 72 (>60 ml/min/1.73 sqM) BUN/Creatinine Ratio (12.00-20.00) Ratio Glucose 110 H (74-99) mg/dL POC Glucose (mg/dL) (70-110) mg/dL POC Glu Optics Engineer ID Estimated Ave Glu mg/dL mg/dL Hemoglobin A1c (<=6.0) % Calcium 8.6 (8.4-10.2) mg/dL Phosphorus (2.5-4.5) mg/dL Magnesium (1.6-2.3) mg/dL Total Bilirubin (0.2-1.3) mg/dL AST (17-59) U/L ALT (4-49) U/L Alkaline Phosphatase (38-126) U/L Ammonia (<30) umol/L Troponin I (0.000-0.034) ng/mL Total Protein (6.3-8.2) g/dL Albumin (3.5-5.0) g/dL Globulin (1.6-3.3) g/dL Albumin/Globulin Ratio (1.60-3.17) Ratio Triglycerides Cancelled (0.00-149.00) mg/dL Cholesterol Cancelled (0.00-200.00) mg/dL LDL Cholesterol Direct Cancelled LDL Cholesterol, Calc Cancelled (0.0-131.0) mg/dL VLDL Cholesterol, Calc Cancelled (5.00-40.00) mg/dL HDL Cholesterol Cancelled (40.00-60.00) mg/dL Cholesterol/HDL Ratio Cancelled Ratio Urine Color Urine Appearance (Clear) Urine pH (5.0-8.0) Ur Specific [place] (1.001-1.035) Urine Protein (Negative) Urine Glucose (UA) (Negative) Urine Ketones (Negative) Urine Blood (Negative) Urine Nitrite (Negative) Urine Bilirubin (Negative) Urine Urobilinogen (<2.0) mg/dL Ur Leukocyte Esterase (Negative) Urine Opiates Screen (NotDetected) Ur Oxycodone Screen (NotDetected) Urine Methadone Screen (NotDetected) Ur Barbiturates Screen (NotDetected) U Tricyclic Antidepress (NotDetected) Ur Phencyclidine Scrn (NotDetected) Ur Amphetamines Screen (NotDetected) U Methamphetamines Scrn (NotDetected) U Benzodiazepines Scrn (NotDetected) Urine Cocaine Screen (NotDetected) U Marijuana (THC) Screen (NotDetected) - EKG Data -: EKG Interpreted by Me (EKG is sinus 99 RI 213 QRS 83 QTc 278) - Radiology Data Radiology results: report reviewed (CT brain chest x-ray negative for acute disease), image reviewed Critical Care Time Critical Care Time: Yes Total Critical Care Time: 31 Disposition Clinical Impression: Weakness, Delirium due to general medical condition, AMS (altered mental status), Hypertensive urgency Disposition: ADMITTED IP TO THIS HOSP Condition: Fair Is patient prescribed a controlled substance at d/c from ED?: No Time of Disposition: 18:30
[2024-10-06 16:12] LABS: Basophils % (A) 1 %; Eosinophils # (A) 0.1 k/uL (0-0.7); Eosinophils % (A) 1 %; HCT 39.2 % (39.0-53.0); HGB 13.1 gm/dL (13.0-17.5); Lymphocytes # (A) 1.5 k/uL (1.0-4.8); Lymphocytes % (A) 22 %; MCH 30.9 pg (25.0-35.0); MCHC 33.4 g/dL (31.0-37.0); MCV 92.5 fL (80.0-100.0); Mean Platelet Volume 7.1; Monocytes # (A) 0.3 k/uL (0-1.0); Monocytes % (A) 4 %; Neutrophils # (A) 4.7 k/uL (1.3-7.7); Neutrophils % (A) 70 %; Platelet Count 377 k/uL (150-450); RBC 4.24 m/uL (4.30-5.90); RDW 13.3 % (11.5-15.5); WBC 6.7 k/uL (3.8-10.6)
--- NOTE | 2024-10-06 16:35 | XR ---
EXAMINATION TYPE: XR chest 2V DATE OF EXAM: 10/06/2024 4:23 PM COMPARISON: Chest radiographs from 11/17/2023 CLINICAL INDICATION: Male, 83 years old with history of altered mental status; LOCATED WITHIN [facility] TECHNIQUE: XR chest 2V Frontal and lateral views of the chest. FINDINGS: Lungs/Pleura: There is no evidence of pleural effusion, focal consolidation, or pneumothorax. Pulmonary vascularity: Unremarkable. Heart/mediastinum: Cardiomediastinal silhouette is unremarkable. Musculoskeletal: No acute osseous pathology. Midline sternotomy wires are noted. IMPRESSION: No acute cardiopulmonary disease/process. [facility], , 10/06/2024 4:33 PM
--- NOTE | 2024-10-06 17:21 | CT ---
EXAMINATION TYPE: CT brain wo con DATE OF EXAM: 10/06/2024 4:40 PM COMPARISON: None. CLINICAL INDICATION: Male, 83 years old with history of Altered mental status, AMS TECHNIQUE: Brain: Axial CT images of the brain were obtained with coronal and sagittal reformats created and rev iewed. Contrast used: None. Oral contrast used: None. CT DLP: 1190.4 mGycm, Automated exposure control for dose reduction was used. FINDINGS: Brain: Extra-axial spaces: No abnormal extra-axial fluid collections. Ventricular system: Dilatation in proportion to cerebral atrophy. Cerebral parenchyma: Cerebral atrophy. No acute intraparenchymal hemorrhage or mass effect. The kaufman -white junction is well differentiated. Scattered hypoattenuating areas are seen within the white mat ter. Cerebellum: Unremarkable. Mass effect: No evidence of midline shift. Intracranial vasculature: Atherosclerotic calcifications of the intracranial vessels. Soft tissues: Normal. Calvarium/osseous structures: No depressed skull fracture. Paranasal sinuses and mastoid air cells: Mild scattered paranasal sinus disease. Visualized orbits: Bilateral aphakia IMPRESSION: 1. No acute intracranial process. 2. Nonspecific white matter changes, likely secondary to chronic small vessel ischemic disease. [facility], , 10/06/2024 5:19 PM
[2024-10-06 18:33] LABS: ALT 7 U/L (4-49); AST 22 U/L (17-59); African American GFR (CKD) 54 (>60 ml/min/1.73 sqM); Albumin 3.9 g/dL (3.5-5.0); Alkaline Phosphatase 62 U/L (38-126); Anion Gap 18 mmol/L; Blood Urea Nitrogen 23 mg/dL (9-20); Calcium 8.9 mg/dL (8.4-10.2); Carbon Dioxide 12 mmol/L (22-30); Chloride 109 mmol/L (98-107); Glucose 103 mg/dL (74-99); Magnesium 1.4 mg/dL (1.6-2.3); Non-African American GFR(CKD) 47 (>60 ml/min/1.73 sqM); Phosphorus 3.4 mg/dL (2.5-4.5); Potassium 3.7 mmol/L (3.5-5.1); Sodium 139 mmol/L (137-145); Total Bilirubin 0.3 mg/dL (0.2-1.3); Total Protein 6.4 g/dL (6.3-8.2)
[2024-10-06 18:45] LABS: INR 1.2 (<1.2); Prothrombin Time 12.8 sec (10.0-12.5)
[2024-10-06] MEDS ORDERED: NALOXONE 0.4 MG/ML 1 ML VIAL IV PRN (18:50)
[2024-10-06] MEDS ORDERED: ONDANSETRON 4 MG/2 ML VIAL IVP PRN (18:50)
[2024-10-06] MEDS: SODIUM CHLORIDE 0.9% 1,000 ML IV SCH (19:06)
[2024-10-07 09:53] LABS: Basophils # (A) 0.03 X 10*3/uL (0.00-0.10); Basophils % (A) 0.5 %; Eosinophils # (A) 0.09 X 10*3/uL (0.04-0.35); Eosinophils % (A) 1.5 %; HCT 28.6 % (39.6-50.0); HGB 9.6 g/dL (13.0-17.0); Lymphocytes # (A) 1.74 X 10*3/uL (0.90-5.00); Lymphocytes % (A) 28.3 %; MCH 30.8 pg (27.0-32.0); MCHC 33.6 g/dL (32.0-37.0); MCV 91.7 FL (80.0-97.0); Mean Platelet Volume 9.9 FL (9.5-12.2); Monocytes # (A) 0.41 X 10*3/uL (0.20-1.00); Monocytes % (A) 6.7 %; NRBC Per 100 WBC 0 X 10*3/uL (0.00-0.01); Neutrophils # (A) 3.84 X 10*3/uL (1.80-7.70); Neutrophils % (A) 62.5 %; Platelet Count 276 X 10*3/uL (140-440); RBC 3.12 X 10*6/uL (4.40-5.60); RDW 13.2 % (11.5-14.5); WBC 6.14 X 10*3/uL (4.50-10.00)
[2024-10-07 10:05] LABS: ALT 5 U/L (10-49); AST 17 U/L (14-35); Albumin 3.5 g/dL (3.8-4.9); Albumin/Globulin Ratio 1.52 Ratio (1.60-3.17); Alkaline Phosphatase 55 U/L (41-126); BUN/Creat Ratio 14.77 Ratio (12.00-20.00); Blood Urea Nitrogen 19.2 mg/dL (9.0-27.0); Calcium 8.1 mg/dL (8.7-10.3); Carbon Dioxide 14.2 mmol/L (21.6-31.8); Chloride 107 mmol/L (96-109); Globulin 2.3 g/dL (1.6-3.3); Glucose 103 mg/dL (70-110); Magnesium 1.3 mg/dL (1.5-2.4); Phosphorus 2.5 mg/dL (2.4-5.1); Potassium 3.4 mmol/L (3.5-5.5); Sodium 141 mmol/L (135-145); Total Bilirubin 0.2 mg/dL (0.3-1.2); Total Protein 5.8 g/dL (6.2-8.2)
[2024-10-07 12:51] LABS: Appearance,Urine Clear (Clear); Bilirubin,Urine Negative (Negative); Blood,Urine Negative (Negative); Color,Urine Yellow; Glucose,Urine (UA) Negative (Negative); Ketones,Urine 2+ (Negative); Leukocyte Esterase,Urine Negative (Negative); Nitrite,Urine Negative (Negative); Protein,Urine Trace (Negative); Specific Gravity,Urine 1.025 (1.001-1.035); Urobilinogen,Urine <2.0 mg/dL (<2.0)
[2024-10-07] MEDS: CALCIUM ACETATE 667 MG TAB PO ONE (12:57)
[2024-10-07] MEDS: MAGNESIUM OXIDE 400 MG TAB PO STA (12:57)
[2024-10-07] MEDS: POTASSIUM CHLORIDE ER 20 MEQ TAB.ER PO STA (12:57)
[2024-10-07 13:12] LABS: Amphetamine Screen,Urine Not Detected (NotDetected); Barbiturate Screen,Urine Not Detected (NotDetected); Benzodiazepines Screen,Urine Not Detected (NotDetected); Cocaine Screen,Urine Not Detected (NotDetected); Methadone Screen, Urine Not Detected (NotDetected); Opiate Screen,Urine Not Detected (NotDetected); Oxycodone Screen, Urine Not Detected (NotDetected); Phencyclidine Screen,Urine Not Detected (NotDetected); Tricyclic Antidepressant,Urine Detected (NotDetected); Urn Cannabinoid Scrn Detected (NotDetected)
[2024-10-07] MEDS: MAGNESIUM SULFATE-D5W PMX 1 GM in DEXTROSE/WATER 1 100ML.BAG IVPB SCH (13:16)
[2024-10-07] MEDS ORDERED: DICYCLOMINE 20 MG TAB PO PRN (17:15)
[2024-10-07] MEDS ORDERED: LACTULOSE 20 GM/30 ML CUP PO PRN (17:15)
--- NOTE | 2024-10-07 17:28 | P.HPIM ---
History of Present Illness H&P Date: 10/07/24 History of present illness: This is an 83-year-old male patient with past medical history significant for coronary artery disease/PCI, CABG, history of colon cancer with small bowel resection, history of SBO, history of dysphagia, esophageal strictures, history of peripheral arterial disease, history of prostate cancer, syncope who was sent to ER from outpatient MRI for deteriorated mental status. Patient mental status improved in the ER, patient was alert and oriented x 4 on my evaluation, patient reported that he has right ear cancer and is following ENT. Patient was complaining of abdominal discomfort, denied any nausea or vomiting, was tolerating p.o. intake, denied any diarrhea. Patient denied any fever, chills, headache, weakness or numbness of extremities, dysuria urgency frequency, chest pain, palpitation, sore throat, cough. In the ED patient was afebrile, heart rate 78, respiratory rate 18, blood pressure was elevated 194/84, saturating 97% on room air. WBC 6.1, hemoglobin 9.6, platelet 276. Sodium 141, potassium 3.4, CO2 14.2, creatinine 1.3, GFR 54, magnesium 1.3. LFTs unremarkable. UA was negative. Urine drug screen showed marijuana and tricyclic antidepressants. CT head 10/06 was negative for acute process. MRI neck 10/06showed findings suggesting progression of basal cell carcinoma of right ear with increased size of enhancement of the brennan and increased e nhancement extension into the external auditory canal. MRI brain ge-related atrophic and chronic small vessel ischemic changes, no acute process at that time. REVIEW OF SYSTEMS: CONSTITUTIONAL: No fever, no malaise, no fatigue. HEENT: No recent visual problems or hearing problems. Denied any sore throat. CARDIOVASCULAR: No chest pain, orthopnea, PND, no palpitations, no syncope. PULMONARY: No shortness of breath, no cough, no hemoptysis. GASTROINTESTINAL: No diarrhea, no nausea, no vomiting, no abdominal pain. NEUROLOGICAL: No headaches, no weakness, no numbness. HEMATOLOGICAL: Denies any bleeding or petechiae. GENITOURINARY: Denies any burning micturition, frequency, or urgency. MUSCULOSKELETAL/RHEUMATOLOGICAL: Denies any joint pain, swelling, or any muscle pain. ENDOCRINE: Denies any polyuria or polydipsia. The rest of the 14-point review of systems is negative. PHYSICAL EXAMINATION: GENERAL: The patient is A&O x3, NAD HEENT: EOMI, Sclerae anicteric, Moist Mucous membranes Neck: Supple, Non tender, No JVD PULMONARY: Equal breath souds B/L, No wheezing, No crackles. CARDIOVASCULAR: S1, S2 present. No murmurs, rubs, or gallops. ABDOMEN: Soft, nontender, nondistended, normoactive bowel sounds. No guarding or rebound tenderness. MUSCULOSKELETAL: No edema, No cyanosis. No clubbing. Normal ROM. Intact peripheral pulses. NEUROLOGICAL: CN 2-12 grossly intact. No FND Assessment and plan: Altered mental status: Resolved Right ear basilar carcinoma: Presented with altered mental status from outpatient MRI CT head negative for acute process. Monitor with neurochecks Infection workup negative Outpatient MRI showed progression of right ear basal cell carcinoma Neurology consulted Outpatient follow-up with ENT History of coronary artery disease/PCI and CABG: Peripheral arterial disease History of TIA: Hypertension Of colon cancer s/p resection/colostomy: History of prostate cancer: History of SBO: CKD: Baseline creatinine 1.3 Resume home meds DVT prophylaxis Subcutaneous Lovenox Monitor vital signs and labs Labs and medication were reviewed. Continue same treatment. Further recommendations as per clinical course of the patient Dictation was produced using [employer] dictation software. please excuse any grammatical, word or spelling errors. 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 R ankle fracture 2020, "poor circulation in my legs", current dysphagia to liquids & solids, has increased recently History of Any Multi-Drug Resistant Organisms: None Reported Past Surgical History: Bowel Resection, Cholecystectomy, Coronary Bypass/CABG, Heart Catheterization, Hernia Repair, Prostate Surgery Additional Past Surgical History / Comment(s): Small bowel resection, exploratory laparotomy/lysis of adhesions, EGDs/dilations/FB removal, recent EGD 03/19/21 showed paraesophageal hernia per report, colonoscopy, prostate seed implants, 2 penile implants, vasectomy, 2007 CABG 3 vessel, R ankle ORIF, lasik eye surgery for vision correction. Past Anesthesia/Blood Transfusion Reactions: No Reported Reaction Past Psychological History: No Psychological Hx Reported Additional Psychological History / Comment(s): Pt resides in a trailer in [place]. Smoking Status: Never smoker, Light tobacco smoker Past Alcohol Use History: None Reported Past Drug Use History: None Reported - Past Family History Father Family Medical History: Myocardial Infarction ([place]) Additional Family Medical History / Comment(s): Pt did not know his father but they were told he of a [place] at the age of 42 yrs. Mother Family Medical History: Vascular Disorder Additional Family Medical History / Comment(s): Mother at age 68yrs, pt was told possible d/t ruptured aneurysm in her neck. Medications and Allergies Home Medications Medication Instructions Recorded Confirmed Type Losartan [Cozaar] 25 mg PO DAILY 11/18/23 10/06/24 History QUEtiapine [SEROquel] 400 mg PO HS 11/18/23 10/06/24 History Aspirin 81 mg PO DAILY #21 tab 11/20/23 10/06/24 Rx Clopidogrel [Plavix] 75 mg PO DAILY 30 Days #30 tab 11/20/23 10/06/24 Rx Erivedge 150mg 150 mg PO HS 07/21/24 10/06/24 History Famotidine 40 mg PO DAILY 07/21/24 10/06/24 History Octreotide Lar [SandoSTATIN LAR] 40 mg SQ Q28D 07/21/24 10/06/24 History Ondansetron [Zofran] 4 mg PO Q4H PRN 07/21/24 10/06/24 History Dicyclomine [Bentyl] 20 mg PO TID PRN 10/06/24 10/06/24 History Fludrocortisone [Florinef] 0.1 mg PO DAILY 10/06/24 10/06/24 History Lactulose [Cephulac] 20 gm PO DAILY PRN 10/06/24 10/06/24 History rOPINIRole HCL [Requip] 0.5 mg PO HS 10/06/24 10/06/24 History Allergies Allergy/AdvReac Type Severity Reaction Status Date / Time No Known Allergies Allergy Verified 10/06/24 15:28 Physical Exam Vitals: Vital Signs Temp Pulse Pulse Resp BP BP Pulse Ox 10/07/24 15:00 97.7 F 78 18 194/84 97 10/07/24 14:15 82 18 179/90 96 10/07/24 11:51 88 18 98 10/07/24 11:00 79 18 131/69 97 10/07/24 10:00 80 18 98 10/07/24 09:00 97.8 F 89 18 131/69 96 10/07/24 05:00 97.7 F 74 18 163/74 98 10/07/24 02:00 72 18 161/88 98 10/07/24 01:00 77 18 153/84 98 10/07/24 00:00 71 18 159/85 97 10/06/24 20:57 98.1 F 87 16 149/78 97 10/06/24 18:39 88 20 174/99 94 L Intake and Output 10/07/24 10/07/24 10/07/24 06:59 14:59 22:59 Other: Voiding Method External Catheter Weight 54.431 kg Results CBC & Chem 7: 10/07/24 06:50 10/07/24 06:50 Labs: Abnormal Lab Results - Last 24 Hours (Table) 10/06/24 10/06/24 10/07/24 Range/Units 16:50 16:50 06:50 RBC 3.12 L (4.40-5.60) X 10*6/uL Hgb 9.6 L (13.0-17.0) g/dL Hct 28.6 L (39.6-50.0) % PT 12.8 H (10.0-12.5) sec INR 1.2 H (<1.2) Potassium (3.5-5.5) mmol/L Chloride 109 H (98-107) mmol/L Carbon Dioxide 12 L (22-30) mmol/L Anion Gap (4.00-12.00) mmol/L BUN 23 H (9-20) mg/dL Creatinine 1.38 H (0.66-1.25) mg/dL Est GFR (CKD-EPI) (>=60) Glucose 103 H (74-99) mg/dL Calcium (8.7-10.3) mg/dL Magnesium 1.4 L (1.6-2.3) mg/dL Total Bilirubin (0.3-1.2) mg/dL ALT (10-49) U/L Total Protein (6.2-8.2) g/dL Albumin (3.8-4.9) g/dL Albumin/Globulin Ratio (1.60-3.17) Ratio Urine Protein (Negative) Urine Ketones (Negative) U Tricyclic Antidepress (NotDetected) U Marijuana (THC) Screen (NotDetected) 10/07/24 10/07/24 Range/Units 06:50 11:46 RBC (4.40-5.60) X 10*6/uL Hgb (13.0-17.0) g/dL Hct (39.6-50.0) % PT (10.0-12.5) sec INR (<1.2) Potassium 3.4 L (3.5-5.5) mmol/L Chloride (98-107) mmol/L Carbon Dioxide 14.2 L (22-30) mmol/L Anion Gap 19.80 H (4.00-12.00) mmol/L BUN (9-20) mg/dL Creatinine (0.66-1.25) mg/dL Est GFR (CKD-EPI) 54 L (>=60) Glucose (74-99) mg/dL Calcium 8.1 L (8.7-10.3) mg/dL Magnesium 1.3 L (1.6-2.3) mg/dL Total Bilirubin 0.2 L (0.3-1.2) mg/dL ALT 5 L (10-49) U/L Total Protein 5.8 L (6.2-8.2) g/dL Albumin 3.5 L (3.8-4.9) g/dL Albumin/Globulin Ratio 1.52 L (1.60-3.17) Ratio Urine Protein Trace H (Negative) Urine Ketones 2+ H (Negative) U Tricyclic Antidepress Detected H (NotDetected) U Marijuana (THC) Screen Detected H (NotDetected)
[2024-10-07] MEDS: CLOPIDOGREL 75 MG TAB PO SCH (17:39)
[2024-10-07] MEDS: ASPIRIN 81 MG PO SCH (17:39)
[2024-10-07] MEDS: ACETAMINOPHEN TAB 500 MG TAB PO PRN (17:39)
[2024-10-07] MEDS: FAMOTIDINE 20 MG TAB PO SCH (17:39)
[2024-10-07] MEDS: FLUDROCORTISONE 0.1 MG TAB PO SCH (17:40)
--- NOTE | 2024-10-07 20:14 | P.CNNES ---
History of Present Illness Consult date: 10/07/24 Requesting physician: Cholo Carver Reason for Consult: Altered mental status History of Present Illness: Patient is a 83-year-old left-handed male came to the hospital yesterday at 3:17 PM for "problems with stomach". Patient is not a good historian. As per electronic records, patient presents from outpatient MRI for deteriorating mental status. Patient drove himself to the hospital. I spoke to patient's son on the phone, who provided with additional history. He mentions that yesterday he received a call from the hospital MRI department, that patient was confused, talking gibberish, not connecting words and sentences. He did not recognize his son and was incoherent. Therefore he was taken to the ER. Patient's son did not notice any other focal deficits like facial droop, focal numbness, tingling weakness or problem with the vision. Patient's son also noticed that for the last 3 days he has not been taking his aspirin, Plavix and Pepcid. Patient does have history of basal cell carcinoma of the right ear, which has been getting worse. He is getting chemotherapy for that. Patient is on mentions that today he is much better. However he has no memory of what happened earlier today or yesterday. Patient says mentions that he has a walker at home, sometimes he passes out when he stands up. He denies any tobacco or alcohol use. Vital signs on arrival blood pressure 162/103, pulse rate 98, temperature 98.1. Blood test shows normal CBC, INR 1.2, normal electrolytes, BUN 23 creatinine 1.38. Hepatic panel normal. Troponin negative, ammonia less than 9. EKG showed sinus rhythm with first-degree AV block. Chest x-ray showed no acute cardiopulmonary process. CT head showed no acute intracranial process. Nonspecific white matter changes, likely secondary chronic small vessel ischemic disease. I personally reviewed CT head agree with the findings. Patient has been seen by myself on 11/19/2023 for stroke/TIA manifesting with transient right leg weakness, left facial droop. MRI of the brain was negative for any acute stroke. Patient states that he lives by himself but then he said he lives with a friend. He uses walker sometimes. Patient denies any tobacco or alcohol use. He smokes marijuana. Patient's previous workup performed on last admission on 11/29/2023 revealed: MRI of the brain without contrast, revealed age-related atrophy and chronic small vessel ischemic change. No acute intracranial process seen at this time. 2-D echo revealed technically difficult study. Normal left ventricular size and systolic function with EF 55 to 60%. Normal left atrial size. No valvular abnormalities. CTA head and neck showed: No flow-limiting stenosis, no large vessel occlusion or aneurysm reported. Fasting a.m. lipid panel with cholesterol 240, LDL 151, HDL 56, triglycerides 161. Patient was on Lipitor 10 mg at home. Dose was increased to 40 mg. However at present patient is not taking any statins. Hemoglobin A1c 6.5 on 10/04/2023, suggestive of borderline/mild diabetes. Recommend healthy lifestyles, dietary adjustment. Optimize control of blood pressure. Patient takes aspirin 81 mg daily. Patient given loading dose of aspirin 325 mg in the ER. Patient has probably failed aspirin regimen. Patient will be started on Plavix 75 mg daily as well. After 21 days, may stop aspirin and continue Plavix. Patient however continues to be on aspirin and Plavix at this time. Review of Systems All pertinent positive and negatives review of systems mentioned in the HPI. 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 Past Anesthesia/Blood Transfusion Reactions: No Reported Reaction Past Psychological History: No Psychological Hx Reported Smoking Status: Former smoker, Light tobacco smoker Past Alcohol Use History: None Reported Past Drug Use History: None Reported - Past Family History Father Family Medical History: Myocardial Infarction ([place]) Additional Family Medical History / Comment(s): Pt did not know his father but they were told he of a [place] at the age of 42 yrs. Mother Family Medical History: Vascular Disorder Additional Family Medical History / Comment(s): Mother at age 68yrs, pt was told possible d/t ruptured aneurysm in her neck. Medications and Allergies Home Medications Medication Instructions Recorded Confirmed Type Losartan [Cozaar] 25 mg PO DAILY 11/18/23 10/06/24 History QUEtiapine [SEROquel] 400 mg PO HS 11/18/23 10/06/24 History Aspirin 81 mg PO DAILY #21 tab 11/20/23 10/06/24 Rx Clopidogrel [Plavix] 75 mg PO DAILY 30 Days #30 tab 11/20/23 10/06/24 Rx Erivedge 150mg 150 mg PO HS 07/21/24 10/06/24 History Famotidine 40 mg PO DAILY 07/21/24 10/06/24 History Octreotide Lar [SandoSTATIN LAR] 40 mg SQ Q28D 07/21/24 10/06/24 History Ondansetron [Zofran] 4 mg PO Q4H PRN 07/21/24 10/06/24 History Dicyclomine [Bentyl] 20 mg PO TID PRN 10/06/24 10/06/24 History Fludrocortisone [Florinef] 0.1 mg PO DAILY 10/06/24 10/06/24 History Lactulose [Cephulac] 20 gm PO DAILY PRN 10/06/24 10/06/24 History rOPINIRole HCL [Requip] 0.5 mg PO HS 10/06/24 10/06/24 History Allergies Allergy/AdvReac Type Severity Reaction Status Date / Time No Known Allergies Allergy Verified 10/06/24 15:28 Physical Examination - Vital Signs Vital Signs: Vital Signs Temp Pulse Resp BP Pulse Ox 10/07/24 11:51 88 18 98 10/07/24 11:00 79 18 131/69 97 10/07/24 10:00 80 18 98 10/07/24 09:00 97.8 F 89 18 131/69 96 10/07/24 05:00 97.7 F 74 18 163/74 98 10/07/24 02:00 72 18 161/88 98 10/07/24 01:00 77 18 153/84 98 10/07/24 00:00 71 18 159/85 97 10/06/24 20:57 98.1 F 87 16 149/78 97 10/06/24 18:39 88 20 174/99 94 L 10/06/24 15:54 90 20 171/110 100 10/06/24 15:24 98 18 162/103 100 Intake and Output 10/06/24 10/07/24 10/07/24 22:59 06:59 14:59 Other: Weight 54.431 kg Patient is is an elderly male, in no acute distress. Patient is alert awake fairly well oriented. Patient knows it is September and the year states is 25. He knows that he is in [facility] in [place], but could not tell the CT. However he knows that he lives in [facility]. He knows name of the current president Mr. Mittal. Patient can name and repeat very well. No aphasia or dysarthria. Attention, concentration and fund of knowledge are somewhat limited. On cranial nerve examination, pupils are equal, round and reacting to light, visual laboy are full on confrontation, with no neglect on double simultaneous stimulation. Extraocular muscles are intact with no nystagmus. Face is symmetric, tongue protrudes to the midline. Palatal elevation and sensation normal, hearing is decreased bilaterally and shoulder shrug normal, facial sensation normal. On muscle strength testing, there is no pronator drift and the strength is normal in arms and legs distally and proximally, except hip flexion which is 4 bilaterally. Deep tendon reflexes are symmetric 1 in the upper limbs, trace in the lower limbs and plantars are flat. Sensory to touch is equal with no neglect on double simultaneous stimulation. Cerebellar function showed no ataxia for [id number] testing. No dysdiadochokinesia. No ataxia for [id number] testing on either side. Tone and bulk of muscles normal. Gait deferred.. On general examination, there is no carotid bruit or murmur, S1-S2 audible. Chest is clear on consultation. Abdomen is soft nontender. No organomegaly, bowel sounds present. Peripheral pulses are present. No peripheral edema. Results - Laboratory Findings CBC and BMP: 10/07/24 06:50 10/07/24 06:50 Abnormal Lab Findings: Abnormal Labs 10/06/24 10/06/24 10/06/24 15:47 16:50 16:50 RBC 4.24 L Hgb Hct PT 12.8 H INR 1.2 H Potassium Chloride 109 H Carbon Dioxide 12 L Anion Gap BUN 23 H Creatinine 1.38 H Est GFR (CKD-EPI) Glucose 103 H Calcium Magnesium 1.4 L Total Bilirubin ALT Total Protein Albumin Albumin/Globulin Ratio 10/07/24 10/07/24 06:50 06:50 RBC 3.12 L Hgb 9.6 L Hct 28.6 L PT INR Potassium 3.4 L Chloride Carbon Dioxide 14.2 L Anion Gap 19.80 H BUN Creatinine Est GFR (CKD-EPI) 54 L Glucose Calcium 8.1 L Magnesium 1.3 L Total Bilirubin 0.2 L ALT 5 L Total Protein 5.8 L Albumin 3.5 L Albumin/Globulin Ratio 1.52 L Assessment and Plan Assessment: * Acute encephalopathy with loss of memory and gibberish speech. Exact cause uncertain. Rule out TIA, as patient has not been taking his aspirin and Plavix for last 3 days. Patient's urine drug screen positive for marijuana and tricyclic, although patient's home medications does not list about any t ricyclic antidepressant, and his son not aware of patient using any marijuana. 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 * Patient will be resumed on aspirin 81 mg and Plavix 75 mg. * MRI of the neck revealed findings suggesting progression of basal cell carcinoma of the right ear with increasing size of enhancement of the brennan and increased enhancement extension into the external auditory canal. Oncology following outpatient. * Patient already had CTA, echo performed recently and were normal. No need to repeat. * Check hemoglobin A1c, fasting lipid panel. Patient is not taking any statins, which was recommended in the past. May have to start statins. * We will check EEG rule out any epileptiform activity. * Recommend not to use marijuana. * Dr. Rodrigue Stuart will resume neurology service in the morning. * Thank you for the consult.
[2024-10-07] MEDS: QUEtiapine 400 MG TAB PO SCH (20:25)
[2024-10-07] MEDS: ERIVEDGE 150 MG PO SCH (20:26)
[2024-10-08 08:34] LABS: Basophils % (A) 0 %; Eosinophils # (A) 0.2 k/uL (0-0.7); Eosinophils % (A) 2 %; HCT 32.9 % (39.0-53.0); HGB 11.1 gm/dL (13.0-17.5); Lymphocytes # (A) 1.9 k/uL (1.0-4.8); Lymphocytes % (A) 23 %; MCH 31.2 pg (25.0-35.0); MCHC 33.7 g/dL (31.0-37.0); MCV 92.6 fL (80.0-100.0); Mean Platelet Volume 7.4; Monocytes # (A) 0.4 k/uL (0-1.0); Monocytes % (A) 4 %; Neutrophils # (A) 5.6 k/uL (1.3-7.7); Neutrophils % (A) 69 %; Platelet Count 229 k/uL (150-450); RBC 3.55 m/uL (4.30-5.90); RDW 13.4 % (11.5-15.5); WBC 8.1 k/uL (3.8-10.6)
[2024-10-08 08:39] LABS: African American GFR (CKD) 83 (>60 ml/min/1.73 sqM); Anion Gap 17 mmol/L; Blood Urea Nitrogen 15 mg/dL (9-20); Calcium 8.6 mg/dL (8.4-10.2); Carbon Dioxide 14 mmol/L (22-30); Chloride 110 mmol/L (98-107); Glucose 110 mg/dL (74-99); Non-African American GFR(CKD) 72 (>60 ml/min/1.73 sqM); Potassium 3.4 mmol/L (3.5-5.1); Sodium 141 mmol/L (137-145)
[2024-10-08] MEDS: LOSARTAN 25 MG TAB PO SCH (08:46)
[2024-10-08 09:10] LABS: Anisocytosis (M) Present; Poikilocytosis (M) Present
[2024-10-08 13:11] LABS: Chol/HDL Ratio 3.39 Ratio; LDL Cholesterol,Calculated 92.5 mg/dL (0.0-131.0)
[2024-10-08] MEDS ORDERED: Potassium Replacement Protocol 1 EACH MISC MISCELLANE PRN (15:10)
--- NOTE | 2024-10-08 15:10 | P.PN ---
Subjective Progress Note Date: 10/08/24 Interval History: This is an 83-year-old male patient with past medical history significant for coronary artery disease/PCI, CABG, history of colon cancer with small bowel resection, history of SBO, history of dysphagia, esophageal strictures, history of peripheral arterial disease, history of prostate cancer, syncope who was sent to ER from outpatient MRI for deteriorated mental status. Patient mental status improved in the ER, patient was alert and oriented x 4 on my evaluation, patient reported that he has right ear cancer and is following ENT. Patient was complaining of abdominal discomfort, denied any nausea or vomiting, was tolerating p.o. intake, denied any diarrhea. Patient denied any fever, chills, headache, weakness or numbness of extremities, dysuria urgency frequency, chest pain, palpitation, sore throat, cough. In the ED patient was afebrile, heart rate 78, respiratory rate 18, blood pressure was elevated 194/84, saturating 97% on room air. WBC 6.1, hemoglobin 9.6, platelet 276. Sodium 141, potassium 3.4, CO2 14.2, creatinine 1.3, GFR 54, magnesium 1.3. LFTs unremarkable. UA was negative. Urine drug screen showed marijuana and tricyclic antidepressants. CT head 10/06 was negative for acute process. 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 MRI brain ge-related atrophic and chronic small vessel ischemic changes, no acute process at that time. 10/08--patient was seen and examined today. No issues overnight. Alert and oriented x 3, mild forgetfulness. Remained afebrile, heart rate is 65, respiratory 16, blood pressure 148/77, saturating 94% on room air. WBC 8.1, hemoglobin 11.1, platelet 229. BMP unremarkable, mildly low potassium 3.4. UA negative. Assessment and plan: Altered mental status: Resolved Right ear basilar carcinoma: Presented with altered mental status from outpatient MRI CT head negative for acute process. 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 Outpatient follow-up with ENT History of coronary artery disease/PCI and CABG: Peripheral arterial disease History of TIA: Hypertension Of colon cancer s/p resection/colostomy: History of prostate cancer: History of SBO: CKD: Baseline creatinine 1.3 Resume home meds DVT prophylaxis Subcutaneous Lovenox Disposition: PT/OT consult Monitor vital signs and labs Labs and medication were reviewed. Continue same treatment. Further recommendations as per clinical course of the patient PHYSICAL EXAMINATION: GENERAL: The patient is A&O x3, NAD HEENT: EOMI, Sclerae anicteric, Moist Mucous membranes Neck: Supple, Non tender, No JVD PULMONARY: Equal breath souds B/L, No wheezing, No crackles. CARDIOVASCULAR: S1, S2 present. No murmurs, rubs, or gallops. ABDOMEN: Soft, nontender, nondistended, normoactive bowel sounds. No guarding or rebound tenderness. MUSCULOSKELETAL: No edema, No cyanosis. No clubbing. Normal ROM. Intact peripheral pulses. NEUROLOGICAL: CN 2-12 grossly intact. No FND Skin: No Rash REVIEW OF SYSTEMS: CONSTITUTIONAL: No fever or chills. CARDIOVASCULAR: No chest pain, palpitations or syncope. PULMONARY: No shortness of breath, no cough, sore throat. GASTROINTESTINAL: No nausea, vomiting, diarrhea, abdominal pain. : No Dysuria, urgency, frequency. Extremities: No edema. NEUROLOGICAL: No headaches, no weakness, or numbness Dictation was produced using [employer] dictation software. please excuse any grammatical, word or spelling errors. Objective - Vital Signs Vital signs: Vital Signs Temp 97.9 F 10/08/24 07:00 Pulse 65 10/08/24 07:00 Resp 16 10/08/24 07:00 BP 148/77 10/08/24 07:00 Pulse Ox 94 L 10/08/24 07:00 FiO2 Intake & Output 10/07/24 10/08/24 10/08/24 18:59 06:59 18:59 Output Total 425 220 Balance -425 -220 Weight 54.431 kg Output: Urine 425 220 Other: Voiding Method External Catheter External Catheter Urinal # Bowel Movements 2 - Labs CBC & Chem 7: 10/08/24 07:25 10/08/24 07:25 Labs: Abnormal Lab Results - Last 24 Hours (Table) 10/08/24 10/08/24 Range/Units 07:25 07:25 RBC 3.55 L (4.30-5.90) m/uL Hgb 11.1 L (13.0-17.5) gm/dL Hct 32.9 L (39.0-53.0) % Potassium 3.4 L (3.5-5.1) mmol/L Chloride 110 H (98-107) mmol/L Carbon Dioxide 14 L (22-30) mmol/L Glucose 110 H (74-99) mg/dL
[2024-10-08] MEDS: POTASSIUM CHLORIDE ER 20 MEQ TAB.ER PO SCH (15:54)
--- NOTE | 2024-10-08 16:15 | P.PN ---
Subjective Progress Note Date: 10/08/24 I am seeing the patient for the first time during this admission. Please refer to Dr. Ya's note for further details. Seems the patient had episode of acute encephalopathy with loss of memory and gibberish speech and his symptoms has resolved. Patient does not recall what transpired but according to the nurse he is drastically better and continues to not to remember what he comes to the hospital for. He denies of any headache, nausea vomiting, focal weakness. His speech is drastically better Objective - Vital Signs Vital signs: Vital Signs Temp 97.5 F L 10/08/24 15:00 Pulse 82 10/08/24 15:00 Resp 16 10/08/24 15:00 BP 137/62 10/08/24 15:00 Pulse Ox 99 10/08/24 15:00 FiO2 Intake & Output 10/07/24 10/08/24 10/08/24 18:59 06:59 18:59 Intake Total 118 Output Total 425 420 Balance -425 -302 Weight 54.431 kg Intake: Oral 118 Output: Urine 425 420 Other: Voiding Method External Catheter External Catheter Urinal # Bowel Movements 2 2 - Exam GENERAL: The patient is lying in bed and is not in acute distress. NEUROLOGICAL: Higher mental function: The patient is awake, alert, oriented to self, place. Stated the month is October. Patient is following commands. No aphasia and no neglect. Cranial nerves: The pupils are round, equal and reactive to light and accommodation. Visual laboy are full to confrontation throughout. Extraocular movement is intact no nystagmus is noted. Facial sensation is normal to touch throughout. The facial strength is normal throughout. No dysarthria is noted. Shoulder shrug is normal bilaterally. Motor: The strength is 5 over 5 throughout. Normal tone and bulk. Cerebellum: Normal finger to nose bilaterally. Sensation: Sensation is normal to touch throughout. - Labs CBC & Chem 7: 10/08/24 07:25 10/08/24 07:25 Labs: Abnormal Lab Results - Last 24 Hours (Table) 10/08/24 10/08/24 Range/Units 07:25 07:25 RBC 3.55 L (4.30-5.90) m/uL Hgb 11.1 L (13.0-17.5) gm/dL Hct 32.9 L (39.0-53.0) % Potassium 3.4 L (3.5-5.1) mmol/L Chloride 110 H (98-107) mmol/L Carbon Dioxide 14 L (22-30) mmol/L Glucose 110 H (74-99) mg/dL Assessment and Plan Assessment: * Acute encephalopathy with loss of memory and gibberish speech. Exact cause uncertain. The patient is having underlying seizure episode especially with history of basal cell carcinoma that is increasing in size and causing cortical irritability especially with multiple neurological issues in the past with confusion, right-sided or left-sided weakness. Patient's urine drug screen positive for marijuana and tricyclic, although patient's home m edications does not list about any tricyclic antidepressant, and his son not aware of patient using any marijuana. ---mentation and speech is drastically better. 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 Patient has not been taking his aspirin and Plavix for last 3 days. I do not suspect this is a TIA but cannot rule it out because of his multiple different neurological issues and my concern is questionable seizure. * MRI of the neck revealed findings suggesting progression of basal cell carcinoma of the right ear with increasing size of enhancement of the brennan and increased enhancement extension into the external auditory canal. Oncology following outpatient. * Patient already had CTA, echo performed recently and were normal. No need to repeat. * Check hemoglobin A1c, fasting lipid panel. Patient is not taking any statins, which was recommended in the past. May have to start statins. * EEG is completed and pending final read. * I will consider starting him on antiseizure medication such as Keppra 500 mg twice a day * If EEG is negative for any seizure discharges I recommend a repeat EEG or prolonged EEG as an outpatient because of his recurrent different neurological issues in the past. Recommend the patient to follow-up with a neurologist as an outpatient within 2 weeks. * Will defer the rest of the medical management the primary team and other specialist. Time with Patient: Less than 30
[2024-10-08] MEDS: POTASSIUM BICARBONATE/CIT AC 20 MEQ TABLET.EFF PO SCH ×2 (17:31→21:55)
[2024-10-08] MEDS: levETIRAcetam 500 MG TAB PO STA (17:31)
[2024-10-08] MEDS: levETIRAcetam 500 MG TAB PO SCH (19:59)
[2024-10-08] MEDS: ATORVASTATIN 40 MG TAB PO SCH (20:25)
[2024-10-09 02:41] VITALS: RESP 16
--- NOTE | 2024-10-09 02:44 | EEG ---
ELECTROENCEPHALOGRAM REPORT CLINICAL HISTORY: This is an 83-year-old gentleman with episode of confusion. The video EEG is obtained to evaluate for seizure epileptiform activity. RELEVANT MEDICATION: Seroquel. EEG TYPE: This is a routine 21-channel EEG with video using the 10/20 electrode placement system. DESCRIPTION: Wakefulness and drowsiness are obtained. During awake state, the background consists of [id number] voltage of 9 hertz activity that is well modulated, well sustained. There is no physiological stage 2 sleep architecture. There is no focal slowing. Interictal and ictal is nearly continuous, sharply contoured activity over the left temporal more than right. No clear epileptiform discharge or seizure on the EEG. ACTIVATION PROCEDURE: Photic stimulation did not evoke a posterior driving response. There is no abnormality during the photic stimulation. Hyperventilation is not performed. CLINICAL INTERPRETATION: This is an abnormal routine EEG. The background is normal. There is sharply contoured activity over the left temporal more than the right, which can cause cortical irritability. No clear seizure or discharges noted during the study. Recommend a repeat EEG or prolonged EEG and that can be considered as an outpatient. Clinical correlation is recommended. MMODL / IJN: [id number] / MTDD
[2024-10-09] MEDS: POTASSIUM BICARBONATE/CIT AC 20 MEQ TABLET.EFF PO SCH (05:51)
[2024-10-09 08:03] VITALS: BP 161/82; PULSE 87; TEMP 98
[2024-10-09] MEDS: FAMOTIDINE 20 MG TAB PO SCH (09:00)
--- NOTE | 2024-10-09 11:12 | P.PN ---
Subjective Progress Note Date: 10/09/24 I am following up with the patient and patient states that he is doing drastically better today compared to initial presentation. No further episodes of confusion. Objective - Vital Signs Vital signs: Vital Signs Temp 98 F 10/09/24 07:35 Pulse 87 10/09/24 07:35 Resp 16 10/09/24 07:35 BP 161/82 10/09/24 07:35 Pulse Ox 100 10/09/24 07:35 FiO2 Intake & Output 10/08/24 10/09/24 10/09/24 18:59 06:59 18:59 Intake Total 238 Output Total 420 Balance -182 Intake: Oral 238 Output: Urine 420 Other: Voiding Method Urinal Toilet Toilet Diaper Urinal Diaper # Voids 2 # Bowel Movements 2 - Exam GENERAL: The patient is lying in bed and is not in acute distress. NEUROLOGICAL: Higher mental function: The patient is awake, alert, oriented to self, place and time . Patient is following commands. No aphasia and no neglect. Cranial nerves: The pupils are round, equal and reactive to light and accommodation. Visual laboy are full to confrontation throughout. Extraocular movement is intact no nystagmus is noted. Facial sensation is normal to touch throughout. The facial strength is normal throughout. No dysarthria is noted. Shoulder shrug is normal bilaterally. Motor: The strength is 5 over 5 throughout. Normal tone and bulk. Cerebellum: Normal finger to nose bilaterally. Sensation: Sensation is normal to touch throughout. - Labs CBC & Chem 7: 10/08/24 07:25 10/09/24 03:45 Labs: Abnormal Lab Results - Last 24 Hours (Table) 10/08/24 10/09/24 Range/Units 20:06 03:45 Potassium 3.3 L 3.4 L (3.5-5.1) mmol/L Assessment and Plan Assessment: * Acute encephalopathy with loss of memory and gibberish speech. Exact cause uncertain. Concern for possible seizure especially with history of basal cell carcinoma that is increasing in size and causing cortical irritability especially with multiple neurological issues in the past with confusion, right-sided or left-sided weakness. Patient's urine drug screen positive for marijuana and tricyclic, although patient's home medications does not list about any tricyclic antidepressant, and his son not aware of patient using any marijuana. ---mentation and speech is drastically better. 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 Patient has not been taking his aspirin and Plavix for last 3 days. I do not suspect this is a TIA but cannot rule it out because of his multiple different neurological issues and my concern is questionable seizure. * MRI of the neck revealed findings suggesting progression of basal cell carcinoma of the right ear with increasing size of enhancement of the brennan and increased enhancement extension into the external auditory canal. Oncology following outpatient. * Patient already had CTA, echo performed recently and were normal. No need to repeat. * Check hemoglobin A1c, fasting lipid panel. Patient is not taking any statins, which was recommended in the past. May have to start statins. * EEG: Is abnormal. The background is normal. There are sharply contoured activity over the left temporal more than the right which can cause cortical irritability. No clear seizure or discharges during the study. * Highly recommend a repeat EEG as an outpatient as well as consider a prolonged EEG because of history of recurrent neurological issues in the past. Coordinated by neurologist as an outpatient * Per [place] DMV if patient truly has seizure, then recommend avoiding driving for 6 months until no further seizure from the last episode, avoid heights, avoid swimming assisted or using heavy machinery. * Continue Keppra 500 mg twice daily. Patient is tolerating the medication and as stated earlier patient feels drastically better currently compared to initial presentation. * Recommend the patient to follow-up with a neurologist as an outpatient within 2 weeks. * Will defer the rest of the medical management the primary team and other specialist. The plan discussed with the patient, primary attending and his nurse. There is no further neurological workup. Will sign off. Please reconsult if needed. Time with Patient: Less than 30
--- NOTE | 2024-10-09 14:25 | P.DS ---
Providers Date of admission: 10/08/24 16:26 Expected date of discharge: 10/09/24 Attending physician: Sharon Velásquez Consults: 10/07/24 09:48 Consult Physician Routine Consulting Provider: Artemio Ya Consult Reason/Comments: Altered mental status Do you want consulting provider notified?: Yes Primary care physician: Kenneth Luciano MD Hospital Course: Discharge diagnoses: Altered mental status: Resolved Right ear basilar carcinoma: Chronic dizziness: Presented with altered mental status from outpatient MRI CT head negative for acute process. 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 No driving for 6 months, patient reported does not drive. Outpatient follow-up with ENT, oncology. Patient reported that he already follo ws and has an appointment. History of coronary artery disease/PCI and CABG: Peripheral arterial disease History of TIA: Hypertension Of colon cancer s/p resection/colostomy: History of prostate cancer: History of SBO: CKD: Baseline creatinine 1.3 Hospital course: This is an 83-year-old male patient with past medical history significant for coronary artery disease/PCI, CABG, history of colon cancer with small bowel resection, history of SBO, history of dysphagia, esophageal strictures, history of peripheral arterial disease, history of prostate cancer, syncope who was sent to ER from outpatient MRI for deteriorated mental status. Patient mental status improved in the ER, patient was alert and oriented x 4 on my evaluation, patient reported that he has right ear cancer and is following ENT. Patient was complaining of abdominal discomfort, denied any nausea or vomiting, was tolerating p.o. intake, denied any diarrhea. Patient denied any fever, chills, headache, weakness or numbness of extremities, dysuria urgency frequency, chest pain, palpitation, sore throat, cough. In the ED patient was afebrile, heart rate 78, respiratory rate 18, blood pressure was elevated 194/84, saturating 97% on room air. WBC 6.1, hemoglobin 9.6, platelet 276. Sodium 141, potassium 3.4, CO2 14.2, creatinine 1.3, GFR 54, magnesium 1.3. LFTs unremarkable. UA was negative. Urine drug screen showed marijuana and tricyclic antidepressants. CT head 10/06 was negative for acute process. 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 MRI brain ge-related atrophic and chronic small vessel ischemic changes, no acute process at that time. 10/08--patient was seen and examined today. No issues overnight. Alert and oriented x 3, mild forgetfulness. Remained afebrile, heart rate is 65, respiratory 16, blood pressure 148/77, saturating 94% on room air. WBC 8.1, hemoglobin 11.1, platelet 229. BMP unremarkable, mildly low potassium 3.4. UA negative. 10/09--patient was seen and examined today. Alert and oriented x 4. No issues overnight, remained afebrile. Vital stable. Neurology started the patient on Keppra, patient reported that he was feeling significantly better as compared to previously. Patient home medication resumed at discharge. Patient condition vital stable at discharge. Please refer to medical cystogram for further details. Follow-up with PCP in 1 week Follow-up with oncology and ENT as outpatient Follow-up with neurology as outpatient. PHYSICAL EXAMINATION: GENERAL: The patient is A&O x3, NAD HEENT: EOMI, Sclerae anicteric, Moist Mucous membranes Neck: Supple, Non tender, No JVD PULMONARY: Equal breath souds B/L, No wheezing, No crackles. CARDIOVASCULAR: S1, S2 present. No murmurs, rubs, or gallops. ABDOMEN: Soft, nontender, nondistended, normoactive bowel sounds. No guarding or rebound tenderness. MUSCULOSKELETAL: No edema, No cyanosis. No clubbing. Normal ROM. Intact peripheral pulses. NEUROLOGICAL: CN 2-12 grossly intact. No FND SKIN: No rashes. Dictation was produced using [employer] dictation software. please excuse any grammatical, word or spelling errors. Plan - Discharge Summary Discharge Rx Participant: No New Discharge Prescriptions: New levETIRAcetam [Keppra] 500 mg PO Q12HR #60 tab Atorvastatin [Lipitor] 40 mg PO HS #30 tab Continue Aspirin 81 mg PO DAILY #21 tab Famotidine 40 mg PO DAILY Lactulose [Cephulac] 20 gm PO DAILY PRN PRN Reason: Constipation Dicyclomine [Bentyl] 20 mg PO TID PRN PRN Reason: Gi Upset Losartan [Cozaar] 25 mg PO DAILY QUEtiapine [SEROquel] 400 mg PO HS Clopidogrel [Plavix] 75 mg PO DAILY 30 Days #30 tab Erivedge 150mg 150 mg PO HS Octreotide Lar [SandoSTATIN LAR] 40 mg SQ Q28D Ondansetron [Zofran] 4 mg PO Q4H PRN PRN Reason: Nausea And Vomiting rOPINIRole HCL [Requip] 0.5 mg PO HS Fludrocortisone [Florinef] 0.1 mg PO DAILY Discharge Medication List Losartan [Cozaar] 25 mg PO DAILY 11/18/23 [History] QUEtiapine [SEROquel] 400 mg PO HS 11/18/23 [History] Aspirin 81 mg PO DAILY #21 tab 11/20/23 [Rx] Clopidogrel [Plavix] 75 mg PO DAILY 30 Days #30 tab 11/20/23 [Rx] Erivedge 150mg 150 mg PO HS 07/21/24 [History] Famotidine 40 mg PO DAILY 07/21/24 [History] Octreotide Lar [SandoSTATIN LAR] 40 mg SQ Q28D 07/21/24 [History] Ondansetron [Zofran] 4 mg PO Q4H PRN 07/21/24 [History] Dicyclomine [Bentyl] 20 mg PO TID PRN 10/06/24 [History] Fludrocortisone [Florinef] 0.1 mg PO DAILY 10/06/24 [History] Lactulose [Cephulac] 20 gm PO DAILY PRN 10/06/24 [History] rOPINIRole HCL [Requip] 0.5 mg PO HS 10/06/24 [History] Atorvastatin [Lipitor] 40 mg PO HS #30 tab 10/09/24 [Rx] levETIRAcetam [Keppra] 500 mg PO Q12HR #60 tab 10/09/24 [Rx] Follow up Appointment(s)/Referral(s): [facility] [NON-STAFF] - As Needed Kenneth Luciano MD [Primary Care Provider] - 1-2 days Rodrigue Alonso MD [STAFF PHYSICIAN] - 1 Week Discharge/Stand Alone Forms: Who Do I Call?, Community Resources Discharge Disposition: HOME WITH HOME HEALTH SERVICES
== END 2024-10-09 15:47 | disposition home health service (06) | DRG 607 ==
LOC: EC 15:17 → 6NMEDSUR 18:51 → OBSVTOIN 10-08 16:26
PROVIDERS: ADMIT Hospitalist; ATTEND Hospitalist
PROC: 4A10X4Z Monitoring of Central Nervous Electrical Activity, External Approach (ICD-10-PCS; principal; 2024-10-08)
DX: C44.212 Basal cell carcinoma of skin of right ear and external auricular canal (principal); F05 Delirium due to known physiological condition; G93.49 Other encephalopathy; E78.5 Hyperlipidemia, unspecified; I12.9 Hypertensive chronic kidney disease with stage 1 through stage 4 chronic kidney disease, or unspecified chronic kidney disease; I16.0 Hypertensive urgency; I25.10 Atherosclerotic heart disease of native coronary artery without angina pectoris; I44.0 Atrioventricular block, first degree; I73.9 Peripheral vascular disease, unspecified; N18.9 Chronic kidney disease, unspecified; R29.810 Facial weakness; R73.03 Prediabetes; Z79.02 Long term (current) use of antithrombotics/antiplatelets; Z79.52 Long term (current) use of systemic steroids; Z79.82 Long term (current) use of aspirin; Z79.899 Other long term (current) drug therapy; Z82.49 Family history of ischemic heart disease and other diseases of the circulatory system; Z85.038 Personal history of other malignant neoplasm of large intestine; Z85.46 Personal history of malignant neoplasm of prostate; Z85.828 Personal history of other malignant neoplasm of skin; Z86.73 Personal history of transient ischemic attack (TIA), and cerebral infarction without residual deficits; R56.9 Unspecified convulsions; Z87.891 Personal history of nicotine dependence; Z95.1 Presence of aortocoronary bypass graft; Z93.3 Colostomy status; F12.90 Cannabis use, unspecified, uncomplicated; F19.90 Other psychoactive substance use, unspecified, uncomplicated
CPT/HCPCS: 36415; 70450; 71046; 80048; 80053; 80061; 80306; 81003; 82140; 83036; 83735; 84100; 84132; 84484; 85025; 85610; 85730; 93005; 95816; 96361; 96365; 99291

== ENCOUNTER → 2024-10-06 | Outpatient (CLI) | payer MEDICARE, BC ==
--- NOTE | 2024-10-06 20:38 | MR ---
EXAMINATION TYPE: MR neck wo/w con DATE OF EXAM: 10/06/2024 3:17 PM COMPARISON: 04/28/2024., 04/06/2024. CT same day. 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 IV Contrast: 5.5 mL Gadobutrol FINDINGS: Enhancement the right internal auditory canal appears to have increased now approximately 10 mm, prev iously 16 mm on the inferior aspect of the external auditory canal. There remains soft tissue signal extending to the tympanic membrane. There is enhancement of what is thought to be the brennan with a t hickened appearance when compared to prior. The glottis appears unremarkable. Several nonenlarged anterior chain lymph nodes are identified. Th e cervical vertebral bodies have preserved heights and alignment. Multilevel disc desiccation and an terior osteophytosis are present. The cervical spinal cord demonstrates a normal appearance. Bilater ally aphakia. High T2 signal in the left mastoid air cells. Cerebral atrophy changes with proportiona l dilation of ventricular system. IMPRESSION: Findings suggesting progression of basal cell carcinoma of the right ear with increasing size of enha ncement of the brennan and increased enhancement extension into the external auditory canal. [facility], , 10/06/2024 8:36 PM
== END | disposition home or self-care (01) ==
LOC: RADMRIMAIN 12:35
PROVIDERS: ATTEND Student in an Organized Health Care Education/Training Program
DX: C44.212 Basal cell carcinoma of skin of right ear and external auricular canal (principal); Z85.038 Personal history of other malignant neoplasm of large intestine; Z85.828 Personal history of other malignant neoplasm of skin
CPT/HCPCS: 70543; A9585

== ENCOUNTER → 2025-05-07 | Outpatient (CLI) | payer MEDICARE, BC ==
[2025-05-07 15:07] LABS: Basophils # (A) 0.03 X 10*3/uL (0.00-0.10); Basophils % (A) 0.6 %; Eosinophils # (A) 0.07 X 10*3/uL (0.04-0.35); Eosinophils % (A) 1.4 %; HCT 33.4 % (39.6-50.0); HGB 11.0 g/dL (13.0-17.0); Immature Grans, Automated 0.40 %; Lymphocytes # (A) 1.41 X 10*3/uL (0.90-5.00); Lymphocytes % (A) 27.3 %; MCH 30.4 pg (27.0-32.0); MCHC 32.9 g/dL (32.0-37.0); MCV 92.3 FL (80.0-97.0); Monocytes # (A) 0.31 X 10*3/uL (0.20-1.00); Monocytes % (A) 6.0 %; NRBC Per 100 WBC 0 X 10*3/uL (0.00-0.01); Neutrophils # (A) 3.32 X 10*3/uL (1.80-7.70); Neutrophils % (A) 64.3 %; Platelet Count 280 X 10*3/uL (140-440); RBC 3.62 X 10*6/uL (4.40-5.60); RDW 11.9 % (11.5-14.5); WBC 5.16 X 10*3/uL (4.50-10.00)
[2025-05-07 15:41] LABS: Anion Gap 14.70 mmol/L (4.00-12.00); BUN/Creat Ratio 12.69 Ratio (12.00-20.00); Blood Urea Nitrogen 16.5 mg/dL (9.0-27.0); Carbon Dioxide 19.3 mmol/L (21.6-31.8); Chloride 100 mmol/L (96-109); Glucose 133 mg/dL (70-110); Potassium 4.6 mmol/L (3.5-5.5); Sodium 134 mmol/L (135-145)
[2025-05-07 15:42] LABS: ALT 33 U/L (10-49); AST 35 U/L (14-35); Albumin 4.6 g/dL (3.8-4.9); Albumin/Globulin Ratio 1.70 Ratio (1.60-3.17); Alkaline Phosphatase 97 U/L (41-126); Calcium 9.9 mg/dL (8.7-10.3); Globulin 2.7 g/dL (1.6-3.3); Total Protein 7.3 g/dL (6.2-8.2); Vitamin B12 381.0 pg/mL (200.0-944.0)
[2025-05-07 15:53] LABS: Prealbumin 22.9 mg/dL (18.0-42.0)
== END | disposition home or self-care (01) ==
LOC: LABWHC1 11:01
PROVIDERS: ATTEND Nurse Practitioner Family
DX: E46 Unspecified protein-calorie malnutrition (principal); G89.29 Other chronic pain; R56.9 Unspecified convulsions; Z79.899 Other long term (current) drug therapy
CPT/HCPCS: 36415; 80053; 80177; 82607; 83090; 84134; 84443; 85025